=== PATIENT | male | born 1935 | race Caucasian/White ===

== ENCOUNTER 2020-03-29 08:11 | Outpatient (REF) | payer MEDICARE, SELFPAY ==
[2020-03-29 09:44] LABS: Estimated Average Glucose 186 mg/dL; Hemoglobin A1c % 8.1 %
[2020-03-29 10:24] LABS: Glucose Fasting 196 mg/dL (60-99)
[2020-03-29 10:30] LABS: Thyroid Stimulating Hormone 0.27 mIU/mL (0.32-4.0)
== END 2020-03-29 08:12 | disposition home or self-care (01) ==
LOC: HO.LAB 08:11
PROVIDERS: PCP Internal Medicine; Visit Provider Internal Medicine
DX: E11.9 Type 2 diabetes mellitus without complications (principal); E03.9 Hypothyroidism, unspecified
CPT/HCPCS: 82947; 83036; 84443

== ENCOUNTER → 2020-04-05 12:47 | Outpatient (BNVA) | payer MEDICARE, SELFPAY | PROVIDERS: PCP Internal Medicine; Referring Provider Internal Medicine; Visit Provider Orthopaedic Surgery | DX: M75.32 Calcific tendinitis of left shoulder (principal); M25.552 Pain in left hip | CPT/HCPCS: 20610; 99213; J1100 ==

== ENCOUNTER 2020-05-23 11:27 | Outpatient (REF) | payer MEDICARE, SELFPAY | END 2020-05-23 11:28 | disposition home or self-care (01) | LOC: HO.HOSX 11:27 | PROVIDERS: Visit Provider Orthopaedic Surgery | DX: Z13.89 Encounter for screening for other disorder (principal) ==

== ENCOUNTER 2020-05-24 08:23 | Outpatient (REF) | payer MEDICARE, SELFPAY ==
--- NOTE | 2020-05-24 08:28 | XR_ITS ---
EXAMINATION: XR BILATERAL KNEES XR RIGHT KNEE CLINICAL INFORMATION: Pain. COMPARISON: 11/13/2014 TECHNIQUE: AP bilateral knees one view. Right knee 2 views. FINDINGS: Right Knee: Severe medial compartment osteoarthritis. This is characterized by joint space loss, marginal osteophytes. Mild lateral compartment and moderate patellofemoral compartment arthritis. Moderate effusion. No acute fracture or dislocation. Left Knee: On the single frontal projection, there is mild medial compartment arthritis. XR/XR knee RT 2V IMPRESSION: Tricompartment osteoarthritis right knee. Severe medial compartment arthritis. Moderate effusion. Mild left knee medial compartment osteoarthritis.
--- NOTE | 2020-05-24 08:28 | XR_ITS ---
EXAMINATION: XR BILATERAL KNEES XR RIGHT KNEE CLINICAL INFORMATION: Pain. COMPARISON: 11/13/2014 TECHNIQUE: AP bilateral knees one view. Right knee 2 views. FINDINGS: Right Knee: Severe medial compartment osteoarthritis. This is characterized by joint space loss, marginal osteophytes. Mild lateral compartment and moderate patellofemoral compartment arthritis. Moderate effusion. No acute fracture or dislocation. Left Knee: On the single frontal projection, there is mild medial compartment arthritis. XR/XR knee standing BI IMPRESSION: Tricompartment osteoarthritis right knee. Severe medial compartment arthritis. Moderate effusion. Mild left knee medial compartment osteoarthritis.
== END 2020-05-24 08:24 | disposition home or self-care (01) ==
LOC: HO.HOSX 08:23
PROVIDERS: PCP Internal Medicine; Referring Provider Internal Medicine; Visit Provider Orthopaedic Surgery
DX: M17.11 Unilateral primary osteoarthritis, right knee (principal); M25.569 Pain in unspecified knee
CPT/HCPCS: 20610; 73560; 73565; 99212; J1100

== ENCOUNTER 2020-07-05 07:58 | Outpatient (REF) | payer MEDICARE, SELFPAY ==
[2020-07-05 09:24] LABS: Thyroid Stimulating Hormone 0.15 uIU/mL (0.32-4.0)
== END 2020-07-05 07:59 | disposition home or self-care (01) ==
LOC: HO.LAB 07:58
PROVIDERS: PCP Internal Medicine; Visit Provider Internal Medicine
DX: E03.9 Hypothyroidism, unspecified (principal)
CPT/HCPCS: 36415; 84443

== ENCOUNTER → 2020-08-16 08:53 | Outpatient (BNVA) | payer MEDICARE, SELFPAY | PROVIDERS: Visit Provider Orthopaedic Surgery | DX: M17.11 Unilateral primary osteoarthritis, right knee (principal) | CPT/HCPCS: 99212 ==

== ENCOUNTER → 2020-10-18 08:39 | Outpatient (BNVA) | payer MEDICARE, SELFPAY | PROVIDERS: Visit Provider Orthopaedic Surgery | DX: M17.11 Unilateral primary osteoarthritis, right knee (principal) | CPT/HCPCS: 99212 ==

== ENCOUNTER 2020-10-25 10:38 | Outpatient (REF) | payer MEDICARE, SELFPAY ==
[2020-10-25 11:16] LABS: Estimated Average Glucose 189 mg/dL; Hemoglobin A1c % 8.2 %
[2020-10-25 12:11] LABS: Alanine Aminotransferase 25 U/L (0-40); Albumin Level 4.3 g/dL (3.5-5.0); Alkaline Phosphatase 71 U/L (39-117); Aspartate Amino Transferase 20 U/L (5-37); Bilirubin Direct 0.3 mg/dL (0.0-0.5); Bilirubin Total 0.6 mg/dL (0.0-1.0); Cholesterol 130 mg/dL; Glucose Fasting 187 mg/dL (60-99); HDL Cholesterol 38 mg/dL; LDL Cholesterol Calculated 66 mg/dl; Total Protein 6.9 g/dL (6.5-8.0); Triglycerides 131 mg/dL
[2020-10-25 13:36] LABS: Reflex LDLD? No
== END 2020-10-25 10:39 | disposition home or self-care (01) ==
LOC: HO.LNP 10:38
PROVIDERS: Visit Provider Internal Medicine
DX: E11.9 Type 2 diabetes mellitus without complications (principal); E78.00 Pure hypercholesterolemia, unspecified
CPT/HCPCS: 80061; 80076; 82947; 83036

== ENCOUNTER 2021-05-16 10:44 | Outpatient (REF) | payer MEDICARE, SELFPAY ==
[2021-05-16 10:49] LABS: MANUAL DIFF FLAG NO
[2021-05-16 11:12] LABS: Basophils Percent Auto 0.3 % (0-2); Eosinophils Absolute Auto 0.2 X10*3/uL (0.0-0.4); Eosinophils Percent Auto 2.4 % (0-4); Hematocrit 41.4 % (42.0-52.0); Hemoglobin 13.4 g/dl (14.0-18.0); Imm Gran Abs Auto 0.01 X10*3/uL (0.00-0.03); Imm Gran Pct Auto 0.1 % (0.0-0.4); Lymphocytes Absolute Auto 3.7 X10*3/uL (1.2-4.9); Lymphocytes Percent Auto 40.4 % (20-40); Mean Corpuscular HGB Conc 32.4 g/dl (31.0-36.0); Mean Corpuscular Hemoglobin 31.8 pg (27.0-33.0); Mean Corpuscular Volume 98.3 fL (80.0-98.0); Monocytes Absolute Auto 0.8 X10*3/uL (0.1-1.2); Monocytes Percent Auto 8.5 % (2-11); Neutrophils Absolute Auto 4.4 x10*3/uL (2.0-8.3); Neutrophils Percent Auto 48.3 % (45-73); Platelet Count 193 X10*3/uL (160-400); Red Blood Count 4.21 X10*6/uL (4.60-5.80); Red Cell Distribution Width 13.2 % (11.0-16.0); White Blood Count 9.2 X10*3/uL (4.8-10.8)
[2021-05-16 11:20] LABS: Appearance Urine CLEAR; Color Urine STRAW; Glucose Urine UA NEG (NEG); Leukocyte Esterase Urine NEG (NEG); Nitrite Urine NEG (NEG); Specific Gravity - Urine 1.015 (1.005-1.025); Urine Blood NEG (NEG); Urine Ketones NEG (NEG); Urine Protein NEG (NEG-TRACE)
[2021-05-16 11:22] LABS: Estimated Average Glucose 146 mg/dL; Hemoglobin A1c % 6.7 %
[2021-05-16 11:40] LABS: Creatinine Urine 84.95 mg/dL; Microalbum/Creatinine Ratio Ur 129.4 ug/mg cr
[2021-05-16 12:00] LABS: Alanine Aminotransferase 28 U/L (0-40); Albumin Level 4.4 g/dL (3.5-5.0); Alkaline Phosphatase 70 U/L (39-117); Anion Gap 15 (12-20); Aspartate Amino Transferase 26 U/L (5-37); Bilirubin Total 0.7 mg/dL (0.0-1.0); Blood Urea Nitrogen 19 mg/dL (9-16); Calcium 10.1 mg/dL (8.4-10.2); Carbon Dioxide 25 mmol/L (22-29); Chloride 106 mmol/L (96-108); Cholesterol 126 mg/dL; Estimated Glomerular Filt Rate > 60; Glucose Fasting 144 mg/dL (60-99); HDL Cholesterol 38 mg/dL; LDL Cholesterol Calculated 60 mg/dl; Potassium 4.2 mmol/L (3.3-5.1); Sodium 142 mmol/L (135-145); Total Protein 7.2 g/dL (6.5-8.0); Triglycerides 140 mg/dL
[2021-05-16 12:22] LABS: PSA,Total (Free>4and<10) 0.49 ng/mL (0.00-4.00)
[2021-05-16 13:08] LABS: Reflex LDLD? No
[2021-05-16 13:29] LABS: Free T4 (Free Thyroxine) 1.64 ng/dL (0.71-1.85)
== END 2021-05-16 10:45 | disposition home or self-care (01) ==
LOC: HO.LNP 10:44
PROVIDERS: Visit Provider Internal Medicine
DX: E11.9 Type 2 diabetes mellitus without complications (principal); E78.00 Pure hypercholesterolemia, unspecified; E03.9 Hypothyroidism, unspecified; D72.820 Lymphocytosis (symptomatic); I10 Essential (primary) hypertension; R97.20 Elevated prostate specific antigen [PSA]; D69.6 Thrombocytopenia, unspecified
CPT/HCPCS: 80053; 80061; 81003; 82043; 83036; 84153; 84439; 84443; 85025

== ENCOUNTER → 2021-06-20 13:56 | Outpatient (BNVA) | payer MEDICARE, SELFPAY | PROVIDERS: Visit Provider Orthopaedic Surgery | DX: M70.42 Prepatellar bursitis, left knee (principal) | CPT/HCPCS: 99212 ==

== ENCOUNTER → 2021-08-08 12:30 | Outpatient (REF) | payer MEDICARE, SELFPAY ==
--- NOTE | 2021-08-08 12:33 | CA_ITS ---
Transthoracic Echocardiogram Patient (Last, First, Middle): Richard Chávez W Gender: Male Date of : 1935 Age: 85 Procedure Date: 08/08/2021 Procedure Type: Transthoracic Echocardiogram Location: OP Height: 177.8 cm Weight: 81.65 kg BSA: 2.00 m2 Heart Rate: bpm BP: 170 / 80 mmHg Reset Merchandiser: DEVORA Referring MD: Orestes Alex MD Symptoms: NEWLY RECOGNIZED HEART MURMUR Study Quality: Fair ECG Rhythm: Sinus Conclusions: - The left ventricular systolic function is normal. The calculated ejection fraction is 60% by biplane method. - There is severe aortic valve stenosis. - There is mild to moderate tricuspid valve regurgitation. - Moderate pulmonary hypertension is present. Findings Left Ventricle Normal left ventricular cavity size. There is mildly increased left ventricular wall thickness. The left ventricular systolic function is normal. The calculated ejection fraction is 60% by biplane method. There is no evidence of regional wall motion abnormalities. E/E prime ratio is between 8 and 15 consistent with indeterminate filling pressures. Evidence suggests grade I (mild) diastolic dysfunction. Right Ventricle Normal right ventricular cavity size and systolic function. Atria Both atria are normal in size. Aortic Valve There is moderate calcification of the aortic valve. There is severe aortic valve stenosis. The peak aortic velocity is 4.24 m/s with a calculated peak gradient of 72 mmHg. The mean gradient is 41 mmHg. The aortic valve area is 0.66 cm2. There is no aortic valve regurgitation. Dimensionless index 0.21. Mitral Valve The mitral valve appears normal. There is trace mitral valve regurgitation. There is no mitral valve stenosis. Pulmonic Valve The pulmonic valve was not well visualized. There is trace pulmonic valve regurgitation. Tricuspid Valve Normal tricuspid valve structure. There is mild to moderate tricuspid valve regurgitation. The right ventricular systolic pressure is 55 mmHg. Moderate pulmonary hypertension is present. Great Vessels The asc aorta and aortic arch are normal in size. Venous The inferior vena cava is normal in size and collapses greater than 50% with inspiration. Pericardium/Pleural There is no evidence of pericardial effusion. Prior Study Comparison Changes noted compared to prior study dated: 02/03/2015. Aortic stenosis now present. Measurements 2D Linear Measurements IVSd: 1.19 0.6-0.9/0.6-1.0 cm LVIDd: 4.04 3.9-5.3/4.2-5.9 cm LVIDd Index: 2.02 2.4-3.2/2.2-3.1 cm/m2 LVIDs: 2.95 2.0-3.6 cm LVPWd: 1.08 0.7-1.1 cm Ao Root: 3.40 2.1-3.5 cm LA Diam: 3.70 2.7-3.8/3.0-4.0 cm LAIDs Index: 1.85 1.5-2.3 cm/m2 LV Mass: 192.71 67-162/88-224 g LV Mass Index: 96.36 43-95/49-115 g/m2 LVOT Diam: 2.00 3.0+(-)1.3 cm 2D Systolic Function EF 4C: 59.50 >55% EF 2C: 59.70 >55% EF BiP: 59.50 >55% Mitral Valve MV Pk E: 0.77 MV PK A: 0.81 MV Decel Time: 388.00 E/A: 1.00 E'Lateral: 6.20 E'Medial: 5.55 E/E' Med: 13.90 E/E' Lat: 12.40 PHT: 114.00 MVA PHT: 1.93 Decel [place]: 1.99 Aortic Valve AoV Pk Gerry: 4.24 AoV Mn Gerry: 3.03 AoV VTI: 1.05 AoV Pk Grad: 72.00 Aov Mn Grad: 41.00 ADY Cont.VTI: 0.66 LVOT LVOT Pk Gerry: 0.91 LVOT Mn Gerry: 0.62 LVOT VTI: 0.22 LVOT Pk Grad: 3.00 LVOT Mn Grad: 2.00 LVOT Diam: 2.00 LVOT Area: 3.14 Diastolic Function MV Pk E: 0.77 MV Pk A: 0.81 E/A: 1.00 E'Medial: 5.55 E/E' Med: 13.90 E' Laterial: 6.20 E/E' Lat: 12.40 Right Ventricle TAPSE (mm): 22.00 TVS' Gerry: 9.90 Tricuspid Valve TR Pk Gerry: 3.60 TR Pk Grad: 52.00 RA Press: 3.00 RVSP: 55.00 Great Vessels Aorta Ao Root-2D: 3.40 2.0-3.7 cm Ao Asc: 3.40 2.1-3.4 cm Ao Arch: 3.20 Updated in Other Vendor System with Status of Final Prince Flores MD electronically signed on 08/08/2021 4:38:22 PM with status of Final
== END ==
LOC: HO.CARD 12:30
PROVIDERS: PCP Internal Medicine; Visit Provider Internal Medicine
DX: R01.1 Cardiac murmur, unspecified (principal)
CPT/HCPCS: 93306

== ENCOUNTER → 2021-08-15 12:44 | Outpatient (BNVA) | payer MEDICARE, SELFPAY | PROVIDERS: PCP Internal Medicine; Referring Provider Internal Medicine; Visit Provider Internal Medicine Cardiovascular Disease | DX: I35.0 Nonrheumatic aortic (valve) stenosis (principal); I10 Essential (primary) hypertension | CPT/HCPCS: 93005; 99202 ==

== ENCOUNTER → 2021-09-12 09:38 | Outpatient (REF) | payer MEDICARE, SELFPAY ==
--- NOTE | 2021-09-12 09:42 | CA_ITS ---
Acquisition Time: 2021-09-12 10:07:43 Total Exercise Time: 00:04:21 Test Indications: SEVERE AORTIC STENOSIS, SOB Medications: SEE CHART Protocol: RAJAT Max HR: 125 BPM 93% of Pred: 134 BPM Max BP: 160/070 mmHG Max Work Load: 5.7 METS Exercise stress test with exercise 4 min 21 sec of Rajat protocol ( at 4 min exercise, speed reduced to 2.0 MPH from 2.4 MPH), with moderate shortness of breath and request to slow then stop exercise, no chest discomfort or lightheadedness, without arrythmia, with peak BP 146/50 immediate after placed in recovery then BP up to 160/60 later in recovery, without EKG changes meeting criteria for ischemia, with downsloping ST lead aVL only. Breathing quickly normalized with rest. Test reviewed with Dr Kendall. Referred By: Home Kendall Overread By: OSCAR JORDAN
== END ==
LOC: HO.CARD 09:38
PROVIDERS: Visit Provider Internal Medicine Cardiovascular Disease
DX: I35.0 Nonrheumatic aortic (valve) stenosis (principal)
CPT/HCPCS: 93017

== ENCOUNTER 2021-09-20 11:09 | Outpatient (REF) | payer MEDICARE, SELFPAY ==
[2021-09-20 12:26] LABS: Hematocrit 37.8 % (42.0-52.0); Hemoglobin 12.7 g/dl (14.0-18.0); Mean Corpuscular HGB Conc 33.6 g/dl (31.0-36.0); Mean Corpuscular Hemoglobin 32.1 pg (27.0-33.0); Mean Corpuscular Volume 95.5 fL (80.0-98.0); Mean Platelet Volume 10.7 fL (9.4-12.4); Platelet Count 181 X10*3/uL (160-400); Red Blood Count 3.96 X10*6/uL (4.60-5.80); Red Cell Distribution Width 13.2 % (11.0-16.0); White Blood Count 8.6 X10*3/uL (4.8-10.8)
[2021-09-20 12:29] LABS: INTERNATIONAL NORM RATIO 1.1 (0.9-1.1); Prothrombin Time 12.3 SEC (9.9-13.0)
[2021-09-20 13:05] LABS: Anion Gap 16 (12-20); Blood Urea Nitrogen 17 mg/dL (9-16); Calcium 10.1 mg/dL (8.4-10.2); Carbon Dioxide 26 mmol/L (22-29); Chloride 99 mmol/L (96-108); Estimated Glomerular Filt Rate 51; Glucose Random 403 mg/dL (60-115); Potassium 4.5 mmol/L (3.3-5.1); Sodium 136 mmol/L (135-145)
== END 2021-09-20 11:10 | disposition home or self-care (01) ==
LOC: HO.LAB 11:09
PROVIDERS: PCP Internal Medicine; Referring Provider Internal Medicine; Visit Provider Internal Medicine Cardiovascular Disease
DX: I35.0 Nonrheumatic aortic (valve) stenosis (principal)
CPT/HCPCS: 36415; 80048; 85027; 85610; 99212

== ENCOUNTER → 2021-11-01 14:09 | Outpatient (BNVA) | payer MEDICARE, SELFPAY | PROVIDERS: PCP Internal Medicine; Referring Provider Internal Medicine; Visit Provider Nurse Practitioner Family | DX: I35.0 Nonrheumatic aortic (valve) stenosis (principal); I10 Essential (primary) hypertension; Z98.890 Other specified postprocedural states | CPT/HCPCS: 99212 ==

== ENCOUNTER 2021-11-14 10:50 | Outpatient (REF) | payer MEDICARE, SELFPAY ==
[2021-11-14 11:18] LABS: Estimated Average Glucose 177 mg/dL; Hemoglobin A1c % 7.8 %
[2021-11-14 11:20] LABS: Alanine Aminotransferase 24 U/L (0-40); Albumin Level 4.3 g/dL (3.5-5.0); Alkaline Phosphatase 80 U/L (39-117); Aspartate Amino Transferase 23 U/L (5-37); Bilirubin Direct 0.2 mg/dL (0.0-0.5); Bilirubin Total 0.5 mg/dL (0.0-1.0); Cholesterol 152 mg/dL; Glucose Fasting 179 mg/dL (60-99); HDL Cholesterol 42 mg/dL; LDL Cholesterol Calculated 87 mg/dl; Total Protein 6.9 g/dL (6.5-8.0); Triglycerides 118 mg/dL
[2021-11-14 11:25] LABS: Reflex LDLD? No
== END 2021-11-14 10:51 | disposition home or self-care (01) ==
LOC: HO.LNP 10:50
PROVIDERS: Visit Provider Internal Medicine
DX: E11.9 Type 2 diabetes mellitus without complications (principal); E78.00 Pure hypercholesterolemia, unspecified
CPT/HCPCS: 80061; 80076; 82947; 83036

== ENCOUNTER → 2022-03-02 09:29 | Outpatient (REF) | payer MEDICARE, SELFPAY ==
--- NOTE | 2022-03-02 09:32 | CA_ITS ---
Transthoracic Echocardiogram Amended Patient (Last, First, Middle): Richard Chávez W Gender: Male Date of : 1935 Age: 86 Procedure Date: 03/02/2022 Procedure Type: Transthoracic Echocardiogram Location: OP Height: 177.8 cm Weight: 72.12 kg BSA: 1.89 m2 Heart Rate: 69 bpm BP: 120 / 60 mmHg Gravity Prospector: BERTHA Referring MD: Home Kendall MD Symptoms: I35.0 - Nonrheumatic aortic (valve) stenosis Study Quality: Fair ECG Rhythm: Sinus Conclusions: - The left ventricular systolic function is normal. The visually estimated ejection fraction is between 55-60%. - There is mildly decreased right ventricular systolic function. - A bioprosthetic aortic valve is present. The prosthetic aortic valve appears to be functioning normally. Findings Left Ventricle Normal left ventricular cavity size. There is severely increased left ventricular wall thickness. The left ventricular systolic function is normal. The visually estimated ejection fraction is between 55-60%. There is no evidence of regional wall motion abnormalities. Diastolic function is normal for age. Right Ventricle Normal right ventricular cavity size. There is mildly decreased right ventricular systolic function. Atria Both atria are normal in size. Aortic Valve A bioprosthetic aortic valve is present. The prosthetic aortic valve appears to be functioning normally. There is no aortic valve regurgitation. Mitral Valve There is mild mitral annular calcification. There is trace mitral valve regurgitation. There is no mitral valve stenosis. Pulmonic Valve The pulmonic valve is likely normal. Tricuspid Valve There is mild tricuspid valve regurgitation. Borderline pulmonary artery systolic pressure. Great Vessels The asc aorta is normal in size. Venous The inferior vena cava is normal in size and collapses less than 50% with inspiration. Pericardium/Pleural There is no evidence of pericardial effusion. Prior Study Comparison Changes noted compared to prior study dated: 08/08/2021. s/p AVR. Measurements 2D Linear Measurements IVSd: 1.51 0.6-0.9/0.6-1.0 cm LVIDd: 3.53 3.9-5.3/4.2-5.9 cm LVIDd Index: 1.87 2.4-3.2/2.2-3.1 cm/m2 LVIDs: 2.04 2.0-3.6 cm LVPWd: 1.49 0.7-1.1 cm LA Diam: 4.50 2.7-3.8/3.0-4.0 cm LAIDs Index: 2.38 1.5-2.3 cm/m2 LV Mass: 243.84 67-162/88-224 g LV Mass Index: 129.01 43-95/49-115 g/m2 LVOT Diam: 2.20 3.0+(-)1.3 cm 2D Volumes LA Vol: 30.40 2D Systolic Function EF 4C: 52.20 >55% EF 2C: 53.40 >55% EF BiP: 52.60 >55% Mitral Valve MV Pk E: 0.96 MV PK A: 0.56 MV Decel Time: 158.00 E/A: 1.70 E'Lateral: 12.00 E'Medial: 10.20 E/E' Med: 9.40 E/E' Lat: 8.00 PHT: 46.00 MVA PHT: 4.78 Decel Floyd: 6.06 Aortic Valve AoV Pk Gerry: 1.47 AoV Mn Gerry: 1.00 AoV VTI: 0.28 AoV Pk Grad: 9.00 Aov Mn Grad: 5.00 ADY Cont.VTI: 2.19 LVOT LVOT Pk Gerry: 0.82 LVOT Mn Gerry: 0.56 LVOT VTI: 0.16 LVOT Pk Grad: 3.00 LVOT Mn Grad: 2.00 LVOT Diam: 2.20 LVOT Area: 3.80 Diastolic Function MV Pk E: 0.96 MV Pk A: 0.56 E/A: 1.70 E'Medial: 10.20 E/E' Med: 9.40 E' Laterial: 12.00 E/E' Lat: 8.00 Right Ventricle TAPSE (mm): 13.10 TVS' Gerry: 7.51 Tricuspid Valve TR Pk Gerry: 2.85 TR Pk Grad: 32.00 RA Press: 8.00 RVSP: 40.00 Great Vessels Aorta Sinus of Valsalva: 3.60 2.0-3.5 cm Ao Asc: 3.30 2.1-3.4 cm Pulmonary Valve PV Pk Gerry: 0.90 Peak PV Grad: 3.00 Updated in Other Vendor System with Status of Final Prince Flores MD electronically signed on 03/03/2022 10:27:22 AM with status of Final
== END ==
LOC: HO.CARD 09:29
PROVIDERS: Visit Provider Internal Medicine Cardiovascular Disease
DX: I35.0 Nonrheumatic aortic (valve) stenosis (principal); Z95.3 Presence of xenogenic heart valve
CPT/HCPCS: 93306

== ENCOUNTER → 2022-03-08 12:45 | Outpatient (BNVA) | payer MEDICARE, SELFPAY | PROVIDERS: PCP Internal Medicine; Referring Provider Internal Medicine; Visit Provider Internal Medicine Cardiovascular Disease | DX: I48.92 Unspecified atrial flutter (principal); Z95.2 Presence of prosthetic heart valve; Z79.01 Long term (current) use of anticoagulants | CPT/HCPCS: 99212 ==

== ENCOUNTER 2022-03-23 09:55 | Outpatient (RCR) | payer MEDICARE, SELFPAY ==
[2022-03-23 10:00] VITALS: BP 108/54; BP 134/60
--- NOTE | 2022-03-23 11:56 | MHC.CR.ITI ---
[address] [phone] F: [phone] Please see additional notes from [facility] Card[facility] Rehab Initial Assessment/ITP Cardiac Rehab Initial Assessment/ITP Start: 02/09/22 08:50 Freq: Status: Active Protocol: Activity Type Activity Date Activity User E-sign Co-sign Detail Recorded Client Recorded Date Recorded By Document 03/23/22 06:49 SONALI [id number] 03/23/22 07:01 SONALI 03/23/22 06:49 Cardiac Rehab ITP Initial [Excercise] -Enologist Required No -Preferred Language British -Number of sessions approved 36 -Diagnosis AVR (Repair) Z95.2 -Other Diagnosis HTN, HDL, DM II , HYPOTHYROID, BPH -Comments ORIENTED TO UNIT, PROCESS, EQUIPMENT SAFETY HAS HX : ARTHRITIS RIGHT KNEE HX KNEE EFFUSION NKDA [Functional Assessment] -6 Min Walk (distance in ft) 950 -Stress Test (Mode) walk -METS Achieved 2.38 -Resting HR 72 -Resting BP 108/54 -Resting SpO2 97 -Exercise HR 106 -Exercise BP 134/60 -Exercise SpO2 97 -RPE 10 -Dyspnea No -ECG Summary sr/st [Pre Rehab] -Pre Rehab Home Exercise No -Mode walking -Exercise Minutes/Day 15 -Exercise Days/Week 2 -Intensity moderate -Risk Stratification: Intermediate Functional Risk Participants capacity < 5-6 METs -Assistive Devices None [Exercise Plan] [Intervention] -Exercise Prescription NuStep, Recumbent Bike, Recumbent Elliptical, Rower,Treadmill ,UBE,Upright Bike,Weights -Duration Intensity 36 Sessions -Frequency 2-3x/week -Angina with Exercise Yes [Exercise Education] -Exercise Education Exercise orientation, Exercise safety ,Home exercise, RPE,Self pulse checking,Signs and symptoms, Warmup/cooldown -Date Completed 03/23/22 -Initials ja -Education Summary no questions/ concerns. [Exercise Goals] -Exercise Most Days of the Week Yes -Exercise 30-45 mins/day Yes -Target HR Range +20 - +30 beats above resting -Target RPE range 11-13 -Increase METS next 30 days 0.5-1.0 METS Every two weeks -METs goal by Discharge 4 METS [Nutrition] [Hyperlipidemia] -Hyperlipidemia Yes -Lipid Draw Date 11/14/21 -Total Cholesterol 152 -LDL 87 -HDL 42 -Tryglycerides 118 [Diabetes] -Diabetes Yes -Diabetes Type 2 -Are lab results available Yes -Fasting Glucose 179 -Date 11/14/21 -HbA1C 7.80 -Date 11/14/21 [Weight Management] -Height 5 ft 10 in -Weight 77.5 kg -Recommended Diet low salt -Comments GIVEN DASH DIET AND READING NUTRITIONAL LABELS PAMPHLETS [Drug/Alchohol Use] -Drug/Alcohol Use No [Nutritional Screen (Rate Your Plate)] -Score 50 -Interpretation of Score opportunities to improve nutrional status -Comments given dash diet and reading food label pamphlets . 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 states not currently depressed or stressed but is aware that tensions could build. has a good support system. [Psycho/Social Plan] [Intervention] -Referral(s) No consult needed [Psycho/Social Education] -Psycho/Social Education Advanced directives, Coping techniques, Depression and CAD,Positive support system, Relaxation Techniques, Reviewed PHQ9 Score w/pt, Sexuality and CAD,Signs and symptoms of CAD ,Stress management -Date Completed 03/23/22 -Initials ja -Education Summary states son ( Jose) is HCP. denies depression and has good support system agrees to inform us/pcp if stress/ depression becomes an issue [Psycho/Social Goals] -Goals Not Applicable [Other Core Comp] [Risk Factors] -Risk Factors Diabetes, Dyslipidemia, Family History of CAD, Hypertension, Physical Inactivity, Other (see comments) [Hypertension] -Hypertention Yes -Resting BP: 108/54 [Tobacco Use] -Patient Tobacco Use Status Former Tobacco user -Tobacco use type Pipe -Years smoked 10 -Smoking Quit Date quit over 40 years ago -Exposure to secondhand smoke No [Heart Failure] -Heart Failure No -EF% 60% -Dyspnea at Rest No -Dyspnea with Exercise No -Last Hospitalization 01/30 [Other Core Comp Plan] [Intervention] -Referral(s) HF Diet Consult ,HF Support Group, Hypertension Consult, Physical Therapy for Fall Risk, Recognizing Stressors,Self Monitoring BP, Stress Management [Other Core Comp Education] -Other Core Comp Education HF Disease progression, Medication compliance,Risk factor modifications, RPD Scale/SOB management, Understanding hypertension -Date Completed 03/23/22 -Initials ja -Education Summary has good understanding of RPD scale, and monitoring of bp states good understanding of medications, monitoring and side effects. states maintains medication regimen [Other Core Comp Goals] -Goals Manage risk factors, Medication compliance, Resting BP < 130/80 [Medication Plan] [Intervention] -Medications AMLODIPINE 2.5 MG DAILY ATORVASTATIN 80 MG DAILY CALCIUM W/VIT D 600 MG-200 MG DAILY COENZYME Q 10 300 MG DAILY ELEQUIS FISH OIL DAILY LEVOTHYROXINE 150 MCH DAILY METFORMIN 1000 BID MIRIAM MOVE FREE CAPS DAILY TAMSULOSIN 0.4 MG DAILY VIT C DAILY -Compliance Patient reports compliance w/ prescribed meds [Medication Education] -Education Importance of medication compliance, Medication purpose, Medication schedule, Medication side effects -Date Completed 03/23/22 -Initials ja -Education Summary states good understanding of medications, monitoring and side effects. states maintains medication regimen [Medication Goals] -Goals Adherence to medication compliance [Treatment Times] -Rehab Services with ECG Monitor -Time 1000 -End Time 1145 -Visit Duration 105
[2022-04-18 10:23] VITALS: BP 132/64; BMI 23.9
--- NOTE | 2022-04-18 11:05 | MHC.CR.ITR ---
[address] [phone] F: [phone] Please see additional notes from [facility] Cardiac Rehab Reassessment/ITP Cardiac Rehab Reassessment/ITP Start: 02/09/22 08:50 Freq: Status: Active Protocol: Activity Type Activity Date Activity User E-sign Co-sign Detail Recorded Client Recorded Date Recorded By Document 04/18/22 10:23 SONALI Desktop 04/18/22 11:03 SONALI 04/18/22 10:23 Cardiac Rehab Reassessment/ITP [Exercise] -Dollyman Required No -Preferred Language Malay -Progress Note Type 30-Day Note -Total Sessions Attended 10 -Comments ORIENTED TO UNIT, PROCESS, EQUIPMENT SAFETY HAS HX : ARTHRITIS RIGHT KNEE HX KNEE EFFUSION NKDA 04/18/22 increasing intensity and duration of workout with supervision and guidance. [Functional Assessment] -ECG Summary A Fib -Home-Based Rehab Pt approved for home-based exercise -Comments walks for approx 15 mins 2x weekly -Fall Risk No [Exercise Plan] [Intervention] -Exercise Prescription NuStep, Recumbent Bike, Recumbent Elliptical, Rower,Treadmill ,UBE,Upright Bike,Weights -Duration Intensity 36 Sessions -Exercise Minutes/Day 30 -Exercise Days/Week 5 -Angina with Exercise Yes -Peak METs 3 [Home Exercise] -Mode walking -Frequency 2 x weekly -Intensity moderate -Comments walks on non rehab weekdays [Exercise Education] -Exercise Education Exercise orientation, Exercise safety ,Home exercise, RPE,Self pulse checking,Signs and symptoms, Warmup/cooldown -Date Completed 03/23/22 -Initials ja -Education Summary no questions/ concerns. [Exercise Goals] -Exercise Most Days of the Week Yes -Exercise 30-45 mins/day Yes -Target HR Range +20 - +30 beats above resting -Target RPE range 11-13 -Increase METS next 30 days 0.5-1.0 METS Every two weeks -METs goal by Discharge 4 METS [Nutrition] [Hyperlipidemia] -Are lab results available Yes -Hyperlipidemia Yes -Medication Changes No -Comments 11/14/21 Cholesterol- 152 Triglycerides- 118 LDL- 87 HDL- 42 [Diabetes] -Diabetes Yes -Diabetes Type 2 -Fasting Glucose 179 -Date 11/14/21 -HbA1C 7.80 -Date 11/14/21 [Weight Management] -Weight 75.5 kg -BMI 23.9 -Comments GIVEN DASH DIET AND READING NUTRITIONAL LABELS PAMPHLETS [Drug/Alchohol Use] -Drug/Alcohol Use No [Nutrition Plan] [Intervention] -Attended Not Applicable [Nutrition Education] -Nutrition Education Diabetes and excercise, Hydration, Nutrition, Reading food labels,Signs and symptoms of Hypo/Hyper- glycemia -Date Completed 03/23/22 -Initials JA -Education Summary at intake and ongoing. discussed role of nutrition and hydration in exercise/ rehab in general . denies having experienced s/s of hypo/ hyperglycemia given reading food labels and dash diet pamphlet [Nutrition Goals] -Goals BMI < 25, Fasting BG 80- 120 mg/dL,HDL > 40,LDL < 70, Total CHOL < 200 [Psycho/Social] -Stage of Change Maintenance -Occupation Retired -PHQ9 Score 1 -Interpretation of Score low risk for depression -Patient Self-Reports Depression No [Psycho/Social Plan] [Intervention] -Attended No consult needed [Psycho/Social Education] -Psycho/Social Education Advanced directives, Coping techniques, Depression and CAD,Positive support system, Relaxation Techniques, Reviewed PHQ9 Score w/pt, Sexuality and CAD,Signs and symptoms of CAD ,Stress management -Date Completed 03/23/22 -Initials ja -Education Summary states son ( Jose) is HCP. denies depression and has good support system agrees to inform us/pcp if stress/ depression becomes an issue [Psycho/Social Goals] -Goals Not Applicable [Other Core Comp] [Hypertension] -Hypertention Yes -Resting BP: 132/64 -Medication Changes No [Tobacco Use] -Change in Use No [Heart Failure] -Heart Failure No -Dyspnea at Rest No -Dyspnea with Exercise No [Other Core Comp Plan] [Intervention] -Attended HF Diet Consult ,HF Support Group, Hypertension Consult, Physical Therapy for Fall Risk, Recognizing Stressors,Self Monitoring BP, Stress Management [Other Core Comp Education] -Other Core Comp Education HF Disease progression, Medication compliance,Risk factor modifications, RPD Scale/SOB management, Understanding hypertension -Date Completed 03/23/22 -Initials ja -Education Summary has good understanding of RPD scale, and monitoring of bp states good understanding of medications, monitoring and side effects. states maintains medication regimen [Other Core Comp Goals] -Goals Manage risk factors, Medication compliance, Resting BP < 130/80 [Medication Plan] [Intervention] -Medications AMLODIPINE 2.5 MG DAILY ATORVASTATIN 80 MG DAILY CALCIUM W/VIT D 600 MG-200 MG DAILY COENZYME Q 10 300 MG DAILY ELEQUIS FISH OIL DAILY LEVOTHYROXINE 150 MCH DAILY METFORMIN 1000 BID MIRIAM MOVE FREE CAPS DAILY TAMSULOSIN 0.4 MG DAILY VIT C DAILY -Compliance Patient reports compliance w/ prescribed meds [Medication Education] -Education Importance of medication compliance, Medication purpose, Medication schedule, Medication side effects -Date Completed 03/23/22 -Initials ja -Education Summary states good understanding of medications, monitoring and side effects. states maintains medication regimen [Medication Goals] -Goals Adherence to medication compliance
[2022-05-16 08:08] VITALS: BP 142/68; BMI 24.3
--- NOTE | 2022-05-16 08:14 | MHC.CR.ITR ---
[address] [phone] F: [phone] Please see additional notes from [facility] Cardiac Rehab Reassessment/ITP Cardiac Rehab Reassessment/ITP Start: 02/09/22 08:50 Freq: Status: Active Protocol: Activity Type Activity Date Activity User E-sign Co-sign Detail Recorded Client Recorded Date Recorded By Document 05/16/22 08:08 SONALI [id number] 05/16/22 08:14 SONALI 05/16/22 08:08 Cardiac Rehab Reassessment/ITP [Exercise] -[facility] Required No -Preferred Language Sinhala -Progress Note Type 60-Day Note -Total Sessions Attended 18 -Comments ORIENTED TO UNIT, PROCESS, EQUIPMENT SAFETY HAS HX : ARTHRITIS RIGHT KNEE HX KNEE EFFUSION NKDA continues increasing intensity and duration of workout with supervision and guidance. [Functional Assessment] -ECG Summary A Fib -Home-Based Rehab Pt approved for home-based exercise -Comments walks for approx 15 mins 2x weekly -Fall Risk No [Exercise Plan] [Intervention] -Exercise Prescription NuStep, Recumbent Bike, Recumbent Elliptical, Rower,Treadmill ,UBE,Upright Bike,Weights -Duration Intensity 36 Sessions -Exercise Minutes/Day 30 -Exercise Days/Week 5 -Angina with Exercise Yes -Peak METs 3 [Home Exercise] -Mode walking -Frequency 2 x weekly -Intensity moderate -Comments walks on non rehab weekdays [Exercise Education] -Exercise Education Exercise orientation, Exercise safety ,Home exercise, RPE,Self pulse checking,Signs and symptoms, Warmup/cooldown -Date Completed 03/23/22 -Initials ja -Education Summary no questions/ concerns. [Exercise Goals] -Exercise Most Days of the Week Yes -Exercise 30-45 mins/day Yes -Target HR Range +20 - +30 beats above resting -Target RPE range 11-13 -Increase METS next 30 days 0.5-1.0 METS Every two weeks -METs goal by Discharge 4 METS [Nutrition] [Hyperlipidemia] -Are lab results available Yes -Hyperlipidemia Yes -Medication Changes No -Comments 11/14/21 Cholesterol- 152 Triglycerides- 118 LDL- 87 HDL- 42 [Diabetes] -Diabetes Yes -Diabetes Type 2 -Fasting Glucose 179 -Date 11/14/21 -HbA1C 7.80 -Date 11/14/21 [Weight Management] -Weight 67.8 kg -BMI 24.29 -Comments GIVEN DASH DIET AND READING NUTRITIONAL LABELS PAMPHLETS [Drug/Alchohol Use] -Drug/Alcohol Use No [Nutrition Plan] [Intervention] -Attended Not Applicable [Nutrition Education] -Nutrition Education Diabetes and excercise, Hydration, Nutrition, Reading food labels,Signs and symptoms of Hypo/Hyper- glycemia -Date Completed 03/23/22 -Initials JA -Education Summary at intake and ongoing. discussed role of nutrition and hydration in exercise/ rehab in general . denies having experienced s/s of hypo/ hyperglycemia given reading food labels and dash diet pamphlet [Nutrition Goals] -Goals BMI < 25, Fasting BG 80- 120 mg/dL,HDL > 40,LDL < 70, Total CHOL < 200 -Weight goal happy at current weight [Psycho/Social] -Stage of Change Maintenance -Occupation Retired -PHQ9 Score 1 -Interpretation of Score low risk for depression -Patient Self-Reports Depression No [Psycho/Social Plan] [Intervention] -Attended No consult needed [Psycho/Social Education] -Psycho/Social Education Advanced directives, Coping techniques, Depression and CAD,Positive support system, Relaxation Techniques, Reviewed PHQ9 Score w/pt, Sexuality and CAD,Signs and symptoms of CAD ,Stress management -Date Completed 03/23/22 -Initials ja -Education Summary states son ( Jose) is HCP. denies depression and has good support system agrees to inform us/pcp if stress/ depression becomes an issue [Psycho/Social Goals] -Goals Not Applicable [Other Core Comp] [Hypertension] -Hypertention Yes -Resting BP: 142/68 -Medication Changes No [Tobacco Use] -Change in Use No [Heart Failure] -Heart Failure No -Dyspnea at Rest No -Dyspnea with Exercise No [Other Core Comp Plan] [Intervention] -Attended HF Diet Consult ,HF Support Group, Hypertension Consult, Physical Therapy for Fall Risk, Recognizing Stressors,Self Monitoring BP, Stress Management [Other Core Comp Education] -Other Core Comp Education HF Disease progression, Medication compliance,Risk factor modifications, RPD Scale/SOB management, Understanding hypertension -Date Completed 03/23/22 -Initials ja -Education Summary has good understanding of RPD scale, and monitoring of bp states good understanding of medications, monitoring and side effects. states maintains medication regimen [Other Core Comp Goals] -Goals Manage risk factors, Medication compliance, Resting BP < 130/80 [Medication Plan] [Intervention] -Medications AMLODIPINE 2.5 MG DAILY ATORVASTATIN 80 MG DAILY CALCIUM W/VIT D 600 MG-200 MG DAILY COENZYME Q 10 300 MG DAILY ELEQUIS FISH OIL DAILY LEVOTHYROXINE 150 MCH DAILY METFORMIN 1000 BID MIRIAM MOVE FREE CAPS DAILY TAMSULOSIN 0.4 MG DAILY VIT C DAILY -Compliance Patient reports compliance w/ prescribed meds [Medication Education] -Education Importance of medication compliance, Medication purpose, Medication schedule, Medication side effects -Date Completed 03/23/22 -Initials ja -Education Summary states good understanding of medications, monitoring and side effects. states maintains medication regimen [Medication Goals] -Goals Adherence to medication compliance
[2022-06-06 10:06] VITALS: BP 138/80; BMI 25.1
--- NOTE | 2022-06-06 10:12 | MHC.CR.ITR ---
[address] [phone] F: [phone] Please see additional notes from [facility] Reassessment/ITP Cardiac Rehab Reassessment/ITP Start: 02/09/22 08:50 Freq: Status: Active Protocol: Activity Type Activity Date Activity User E-sign Co-sign Detail Recorded Client Recorded Date Recorded By Document 06/06/22 10:06 SONALI [id number] 06/06/22 10:12 SONALI 06/06/22 10:06 Cardiac Rehab Reassessment/ITP [Exercise] -Land Appraiser Required No -Preferred Language Albanian -Progress Note Type 90-Day Note -Total Sessions Attended 25 -Comments ORIENTED TO UNIT, PROCESS, EQUIPMENT SAFETY HAS HX : ARTHRITIS RIGHT KNEE HX KNEE EFFUSION NKDA continues increasing intensity and duration of workout with supervision and guidance. 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 [Functional Assessment] -ECG Summary A Fib -Home-Based Rehab Pt approved for home-based exercise -Comments walks for approx 15 mins 2x weekly -Fall Risk No [Exercise Plan] [Intervention] -Exercise Prescription NuStep, Recumbent Bike, Recumbent Elliptical, Rower,Treadmill ,UBE,Upright Bike,Weights -Duration Intensity 36 Sessions -Exercise Minutes/Day 30 -Exercise Days/Week 5 -Angina with Exercise Yes -Peak METs 3 [Home Exercise] -Mode walking -Frequency 2 x weekly -Intensity moderate -Comments walks on non rehab weekdays [Exercise Education] -Exercise Education Exercise orientation, Exercise safety ,Home exercise, RPE,Self pulse checking,Signs and symptoms, Warmup/cooldown -Date Completed 03/23/22 -Initials ja -Education Summary no questions/ concerns. [Exercise Goals] -Exercise Most Days of the Week Yes -Exercise 30-45 mins/day Yes -Target HR Range +20 - +30 beats above resting -Target RPE range 11-13 -Increase METS next 30 days 0.5-1.0 METS Every two weeks -METs goal by Discharge 4 METS [Nutrition] [Hyperlipidemia] -Are lab results available Yes -Hyperlipidemia Yes -Medication Changes No -Comments 11/14/21 Cholesterol- 152 Triglycerides- 118 LDL- 87 HDL- 42 [Diabetes] -Diabetes Yes -Diabetes Type 2 -Fasting Glucose 179 -Date 11/14/21 -HbA1C 7.80 -Date 11/14/21 [Weight Management] -Weight 79.2 kg -BMI 25.05 -Comments GIVEN DASH DIET AND READING NUTRITIONAL LABELS PAMPHLETS [Drug/Alchohol Use] -Drug/Alcohol Use No [Nutrition Plan] [Intervention] -Attended Not Applicable [Nutrition Education] -Nutrition Education Diabetes and excercise, Hydration, Nutrition, Reading food labels,Signs and symptoms of Hypo/Hyper- glycemia -Date Completed 03/23/22 -Initials JA -Education Summary at intake and ongoing. discussed role of nutrition and hydration in exercise/ rehab in general . denies having experienced s/s of hypo/ hyperglycemia given reading food labels and dash diet pamphlet [Nutrition Goals] -Goals BMI < 25, Fasting BG 80- 120 mg/dL,HDL > 40,LDL < 70, Total CHOL < 200 -Weight goal happy at current weight [Psycho/Social] -Stage of Change Maintenance -Occupation Retired -PHQ9 Score 1 -Interpretation of Score low risk for depression -Patient Self-Reports Depression No [Psycho/Social Plan] [Intervention] -Attended No consult needed [Psycho/Social Education] -Psycho/Social Education Advanced directives, Coping techniques, Depression and CAD,Positive support system, Relaxation Techniques, Reviewed PHQ9 Score w/pt, Sexuality and CAD,Signs and symptoms of CAD ,Stress management -Date Completed 03/23/22 -Initials ja -Education Summary states son ( Jose) is HCP. denies depression and has good support system agrees to inform us/pcp if stress/ depression becomes an issue [Psycho/Social Goals] -Goals Not Applicable [Other Core Comp] [Hypertension] -Hypertention Yes -Resting BP: 138/80 -Medication Changes No [Tobacco Use] -Change in Use No [Heart Failure] -Heart Failure No -Dyspnea at Rest No -Dyspnea with Exercise No [Other Core Comp Plan] [Intervention] -Attended HF Diet Consult ,HF Support Group, Hypertension Consult, Physical Therapy for Fall Risk, Recognizing Stressors,Self Monitoring BP, Stress Management [Other Core Comp Education] -Other Core Comp Education HF Disease progression, Medication compliance,Risk factor modifications, RPD Scale/SOB management, Understanding hypertension -Date Completed 03/23/22 -Initials ja -Education Summary has good understanding of RPD scale, and monitoring of bp states good understanding of medications, monitoring and side effects. states maintains medication regimen [Other Core Comp Goals] -Goals Manage risk factors, Medication compliance, Resting BP < 130/80 [Medication Plan] [Intervention] -Medications AMLODIPINE 2.5 MG DAILY ATORVASTATIN 80 MG DAILY CALCIUM W/VIT D 600 MG-200 MG DAILY COENZYME Q 10 300 MG DAILY ELEQUIS FISH OIL DAILY LEVOTHYROXINE 150 MCH DAILY METFORMIN 1000 BID MIRIAM MOVE FREE CAPS DAILY TAMSULOSIN 0.4 MG DAILY VIT C DAILY -Compliance Patient reports compliance w/ prescribed meds [Medication Education] -Education Importance of medication compliance, Medication purpose, Medication schedule, Medication side effects -Date Completed 03/23/22 -Initials ja -Education Summary states good understanding of medications, monitoring and side effects. states maintains medication regimen [Medication Goals] -Goals Adherence to medication compliance
[2022-07-17 10:10] VITALS: BP 114/60; BMI 24.7
--- NOTE | 2022-07-17 10:18 | MHC.CR.ITR ---
[address] [phone] F: [phone] Please see additional notes from [facility] Re[facility] Reassessment/ITP Cardiac Rehab Reassessment/ITP Start: 02/09/22 08:50 Freq: Status: Active Protocol: Activity Type Activity Date Activity User E-sign Co-sign Detail Recorded Client Recorded Date Recorded By Document 07/17/22 10:10 SONALI [id number] 07/17/22 10:17 SONALI 07/17/22 10:10 Cardiac Rehab Reassessment/ITP [Exercise] -Winder Tender Required No -Preferred Language Tajik -Progress Note Type 120-Day Note -Total Sessions Attended 32 -Comments ORIENTED TO UNIT, PROCESS, EQUIPMENT SAFETY HAS HX : ARTHRITIS RIGHT KNEE HX KNEE EFFUSION NKDA continues increasing intensity and duration of workout with supervision and guidance. 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 [Functional Assessment] -ECG Summary A Fib -Home-Based Rehab Pt approved for home-based exercise -Comments walks for approx 15 mins 2x weekly -Fall Risk No [Exercise Plan] [Intervention] -Exercise Prescription NuStep, Recumbent Bike, Recumbent Elliptical, Rower,Treadmill ,UBE,Upright Bike,Weights -Duration Intensity 36 Sessions -Exercise Minutes/Day 30 -Exercise Days/Week 5 -Angina with Exercise Yes -Peak METs 3 [Home Exercise] -Mode walking -Frequency 2 x weekly -Intensity moderate -Comments walks on non rehab weekdays [Exercise Education] -Exercise Education Exercise orientation, Exercise safety ,Home exercise, RPE,Self pulse checking,Signs and symptoms, Warmup/cooldown -Date Completed 03/23/22 -Initials ja -Education Summary no questions/ concerns. [Exercise Goals] -Exercise Most Days of the Week Yes -Exercise 30-45 mins/day Yes -Target HR Range +20 - +30 beats above resting -Target RPE range 11-13 -Increase METS next 30 days 0.5-1.0 METS Every two weeks -METs goal by Discharge 4 METS [Nutrition] [Hyperlipidemia] -Are lab results available Yes -Hyperlipidemia Yes -Medication Changes No -Comments 11/14/21 Cholesterol- 152 Triglycerides- 118 LDL- 87 HDL- 42 [Diabetes] -Diabetes Yes -Diabetes Type 2 -Fasting Glucose 179 -Date 11/14/21 -HbA1C 7.80 -Date 11/14/21 [Weight Management] -Weight 78.2 kg -BMI 24.73 -Comments GIVEN DASH DIET AND READING NUTRITIONAL LABELS PAMPHLETS [Drug/Alchohol Use] -Drug/Alcohol Use No [Nutrition Plan] [Intervention] -Attended Not Applicable [Nutrition Education] -Nutrition Education Diabetes and excercise, Hydration, Nutrition, Reading food labels,Signs and symptoms of Hypo/Hyper- glycemia -Date Completed 03/23/22 -Initials JA -Education Summary at intake and ongoing. discussed role of nutrition and hydration in exercise/ rehab in general . denies having experienced s/s of hypo/ hyperglycemia given reading food labels and dash diet pamphlet [Nutrition Goals] -Goals BMI < 25, Fasting BG 80- 120 mg/dL,HDL > 40,LDL < 70, Total CHOL < 200 -Weight goal happy at current weight [Psycho/Social] -Stage of Change Maintenance -Occupation Retired -PHQ9 Score 1 -Interpretation of Score low risk for depression -Patient Self-Reports Depression No [Psycho/Social Plan] [Intervention] -Attended No consult needed [Psycho/Social Education] -Psycho/Social Education Advanced directives, Coping techniques, Depression and CAD,Positive support system, Relaxation Techniques, Reviewed PHQ9 Score w/pt, Sexuality and CAD,Signs and symptoms of CAD ,Stress management -Date Completed 03/23/22 -Initials ja -Education Summary states son ( Jose) is HCP. denies depression and has good support system agrees to inform us/pcp if stress/ depression becomes an issue [Psycho/Social Goals] -Goals Not Applicable [Other Core Comp] [Hypertension] -Hypertention Yes -Resting BP: 114/60 -Medication Changes No [Tobacco Use] -Change in Use No [Heart Failure] -Heart Failure No -Dyspnea at Rest No -Dyspnea with Exercise No [Other Core Comp Plan] [Intervention] -Attended HF Diet Consult ,HF Support Group, Hypertension Consult, Physical Therapy for Fall Risk, Recognizing Stressors,Self Monitoring BP, Stress Management [Other Core Comp Education] -Other Core Comp Education HF Disease progression, Medication compliance,Risk factor modifications, RPD Scale/SOB management, Understanding hypertension -Date Completed 03/23/22 -Initials ja -Education Summary has good understanding of RPD scale, and monitoring of bp states good understanding of medications, monitoring and side effects. states maintains medication regimen [Other Core Comp Goals] -Goals Manage risk factors, Medication compliance, Resting BP < 130/80 [Medication Plan] [Intervention] -Medications AMLODIPINE 2.5 MG DAILY ATORVASTATIN 80 MG DAILY CALCIUM W/VIT D 600 MG-200 MG DAILY COENZYME Q 10 300 MG DAILY ELEQUIS FISH OIL DAILY LEVOTHYROXINE 150 MCH DAILY METFORMIN 1000 BID MIRIAM MOVE FREE CAPS DAILY TAMSULOSIN 0.4 MG DAILY VIT C DAILY [ End ] -Compliance Patient reports compliance w/ prescribed meds [Medication Education] -Education Importance of medication compliance, Medication purpose, Medication schedule, Medication side effects -Date Completed 03/23/22 -Initials ja -Education Summary states good understanding of medications, monitoring and side effects. states maintains medication regimen [Medication Goals] -Goals Adherence to medication compliance
[2022-08-17 08:20] VITALS: BP 122/60; BP 134/60; BMI 24.7
--- NOTE | 2022-08-17 08:25 | MHC.CR.ITD ---
[address] [phone] F: [phone] Please see additional notes from [facility] Card[facility] Rehab Discharge/ITP Cardiac Rehab Discharge/ITP Start: 02/09/22 08:50 Freq: Status: Active Protocol: Activity Type Activity Date Activity User E-sign Co-sign Detail Recorded Client Recorded Date Recorded By Document 08/17/22 08:20 SONALI [id number] 08/17/22 08:25 SONALI 08/17/22 08:20 Cardiac Rehab Discharge/ITP [Exercise] -O And M Supervisor Required No -Preferred Language Mongolian -Total Sessions Attended 36 -Comments ORIENTED TO UNIT, PROCESS, EQUIPMENT SAFETY HAS HX : ARTHRITIS RIGHT KNEE HX KNEE EFFUSION NKDA continues increasing intensity and duration of workout with supervision and guidance. 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 [Functional Assessment] -6 Min Walk (distance in ft) 1,200 -Stress Test (Mode) walk -METS Achieved 2.41 -Resting HR 73 -Resting BP 122/60 -Resting SpO2 98 -Exercise HR 99 -Exercise BP 134/60 -Exercise SpO2 94 -RPE 10 -Dyspnea NI -ECG Summary A Fib -Fall Risk No [Exercise Plan] [Intervention] -Exercise Prescription NuStep, Recumbent Bike, Recumbent Elliptical, Rower,Treadmill ,UBE,Upright Bike,Weights -Duration Intensity 36 Sessions -Exercise Minutes/Day 30 -Exercise Days/Week 5 -Angina with Exercise Yes -Peak METs 3 [Home Exercise] -Mode walking -Frequency 2 x weekly -Intensity moderate -Comments walks on non rehab weekdays [Exercise Education] -Exercise Education Exercise orientation, Exercise safety ,Home exercise, RPE,Self pulse checking,Signs and symptoms, Warmup/cooldown -Date Completed 03/23/22 -Initials ja -Education Summary no questions/ concerns. [Exercise Goals] -Exercise Most Days of the Week Yes -Exercise 30-45 mins/day Yes -Target HR Range +20 - +30 beats above resting -Target RPE range 11-13 -Increase METS next 30 days 0.5-1.0 METS Every two weeks -METs goal by Discharge 4 METS [Nutrition] [Hyperlipidemia] -Are lab results available Yes -Hyperlipidemia Yes -Lipid Draw Date 11/14/21 -Total Cholesterol 152 -LDL 87 -HDL 42 -Tryglycerides 118 -Comments 11/14/21 Cholesterol- 152 Triglycerides- 118 LDL- 87 HDL- 42 [Diabetes] -Diabetes Yes -Diabetes Type 2 -Fasting Glucose 179 -Date 11/14/21 -HbA1C 7.80 -Date 11/14/21 [Weight Management] -Weight 78.2 kg -BMI 24.73 -Comments GIVEN DASH DIET AND READING NUTRITIONAL LABELS PAMPHLETS [Drug/Alchohol Use] -Drug/Alcohol Use No [Nutrition Plan] [Intervention] -Attended Not Applicable [Nutrition Education] -Nutrition Education Diabetes and excercise, Hydration, Nutrition, Reading food labels,Signs and symptoms of Hypo/Hyper- glycemia -Date Completed 03/23/22 -Initials JA -Education Summary at intake and ongoing. discussed role of nutrition and hydration in exercise/ rehab in general . denies having experienced s/s of hypo/ hyperglycemia given reading food labels and dash diet pamphlet [Nutrition Goals] -Goals BMI < 25, Fasting BG 80- 120 mg/dL,HDL > 40,LDL < 70, Total CHOL < 200 -Weight goal happy at current weight [Psycho/Social] -Stage of Change Maintenance -Occupation Retired -PHQ9 Score 1 -Interpretation of Score low risk for depression -Patient Self-Reports Depression No [Psycho/Social Plan] [Intervention] -Attended No consult needed [Psycho/Social Education] -Psycho/Social Education Advanced directives, Coping techniques, Depression and CAD,Positive support system, Relaxation Techniques, Reviewed PHQ9 Score w/pt, Sexuality and CAD,Signs and symptoms of CAD ,Stress management -Date Completed 03/23/22 -Initials ja -Education Summary states son ( Jose) is HCP. denies depression and has good support system agrees to inform us/pcp if stress/ depression becomes an issue [Psycho/Social Goals] -Goals Not Applicable [Other Core Comp] [Hypertension] -Hypertention Yes -Resting BP: 122/60 -Medication Changes No [Tobacco Use] -Change in Use No [Heart Failure] -Dyspnea at Rest No -Dyspnea with Exercise No [Other Core Comp Plan] [Intervention] -Attended HF Diet Consult ,HF Support Group, Hypertension Consult, Physical Therapy for Fall Risk, Recognizing Stressors,Self Monitoring BP, Stress Management [Other Core Comp Education] -Other Core Comp Education HF Disease progression, Medication compliance,Risk factor modifications, RPD Scale/SOB management, Understanding hypertension -Date Completed 03/23/22 -Initials ja -Education Summary has good understanding of RPD scale, and monitoring of bp states good understanding of medications, monitoring and side effects. states maintains medication regimen [Other Core Comp Goals] -Goals Manage risk factors, Medication compliance, Resting BP < 130/80 [Medication Plan] [Intervention] -Medications AMLODIPINE 2.5 MG DAILY ATORVASTATIN 80 MG DAILY CALCIUM W/VIT D 600 MG-200 MG DAILY COENZYME Q 10 300 MG DAILY ELEQUIS FISH OIL DAILY LEVOTHYROXINE 150 MCH DAILY METFORMIN 1000 BID MIRIAM MOVE FREE CAPS DAILY TAMSULOSIN 0.4 MG DAILY VIT C DAILY [ End ] -Compliance Patient reports compliance w/ prescribed meds [Medication Education] -Education Importance of medication compliance, Medication purpose, Medication schedule, Medication side effects -Date Completed 03/23/22 -Initials ja -Education Summary states good understanding of medications, monitoring and side effects. states maintains medication regimen [Medication Goals] -Goals Adherence to medication compliance
== END 2022-08-17 08:36 | disposition home or self-care (01) ==
LOC: HO.CR 09:55
PROVIDERS: PCP Internal Medicine; Visit Provider Nurse Practitioner Acute Care
DX: Z98.890 Other specified postprocedural states (principal)
CPT/HCPCS: 93798

== ENCOUNTER 2022-04-26 11:18 | Outpatient (REF) | payer MEDICARE, SELFPAY ==
[2022-03-23 10:00] VITALS: BP 108/54; BP 134/60
[2022-04-26 11:37] LABS: MANUAL DIFF FLAG NO
[2022-04-26 12:06] LABS: Basophils Percent Auto 0.5 % (0-2); Eosinophils Absolute Auto 0.2 X10*3/uL (0.0-0.4); Eosinophils Percent Auto 2.1 % (0-4); Hematocrit 33.7 % (42.0-52.0); Hemoglobin 10.6 g/dl (14.0-18.0); Imm Gran Abs Auto 0.04 X10*3/uL (0.00-0.03); Imm Gran Pct Auto 0.5 % (0.0-0.4); Lymphocytes Absolute Auto 2.6 X10*3/uL (1.2-4.9); Lymphocytes Percent Auto 29.3 % (20-40); Mean Corpuscular HGB Conc 31.5 g/dl (31.0-36.0); Mean Corpuscular Hemoglobin 31.2 pg (27.0-33.0); Mean Corpuscular Volume 99.1 fL (80.0-98.0); Mean Platelet Volume 10.7 fL (9.4-12.4); Monocytes Absolute Auto 0.6 X10*3/uL (0.1-1.2); Monocytes Percent Auto 7.4 % (2-11); Neutrophils Absolute Auto 5.3 x10*3/uL (2.0-8.3); Neutrophils Percent Auto 60.2 % (45-73); Platelet Count 183 X10*3/uL (160-400); Red Cell Distribution Width 14.5 % (11.0-16.0); White Blood Count 8.7 X10*3/uL (4.8-10.8)
== END 2022-04-26 11:19 | disposition home or self-care (01) ==
LOC: HO.LAB 11:18
PROVIDERS: PCP Internal Medicine; Visit Provider Internal Medicine
DX: K62.5 Hemorrhage of anus and rectum (principal)
CPT/HCPCS: 36415; 85025

== ENCOUNTER 2022-04-27 12:16 | Outpatient (REF) | payer MEDICARE, SELFPAY ==
[2022-03-23 10:00] VITALS: BP 108/54; BP 134/60
[2022-04-27 12:25] LABS: MANUAL DIFF FLAG NO
[2022-04-27 13:16] LABS: Basophils Absolute Auto 0.1 X10*3/uL (0.0-0.2); Basophils Percent Auto 0.5 % (0-2); Eosinophils Absolute Auto 0.2 X10*3/uL (0.0-0.4); Eosinophils Percent Auto 1.6 % (0-4); Hematocrit 33.9 % (42.0-52.0); Hemoglobin 10.7 g/dl (14.0-18.0); Imm Gran Abs Auto 0.03 X10*3/uL (0.00-0.03); Imm Gran Pct Auto 0.3 % (0.0-0.4); Lymphocytes Absolute Auto 3.2 X10*3/uL (1.2-4.9); Lymphocytes Percent Auto 33.4 % (20-40); Mean Corpuscular HGB Conc 31.6 g/dl (31.0-36.0); Mean Corpuscular Hemoglobin 31.1 pg (27.0-33.0); Mean Corpuscular Volume 98.5 fL (80.0-98.0); Mean Platelet Volume 10.8 fL (9.4-12.4); Monocytes Absolute Auto 0.8 X10*3/uL (0.1-1.2); Monocytes Percent Auto 8.8 % (2-11); Neutrophils Absolute Auto 5.2 x10*3/uL (2.0-8.3); Neutrophils Percent Auto 55.4 % (45-73); Platelet Count 186 X10*3/uL (160-400); Red Blood Count 3.44 X10*6/uL (4.60-5.80); Red Cell Distribution Width 14.5 % (11.0-16.0); White Blood Count 9.5 X10*3/uL (4.8-10.8)
[2022-04-27 14:02] LABS: Iron 64 mcg/dL (45-160); Percent Iron Saturation 20 % (15-50); Total Iron Binding Capacity 325 mcg/dL (228-428); Unsaturated Iron Binding 261 ug/dL
[2022-04-27 15:09] LABS: Ferritin 30 ng/mL (20-250)
[2022-04-27 16:36] LABS: Folate 12.1 ng/mL (> or = 4.0); Vitamin B12 344 pg/mL (200-900)
== END 2022-04-27 12:17 | disposition home or self-care (01) ==
LOC: HO.LAB 12:16
PROVIDERS: PCP Internal Medicine; Visit Provider Internal Medicine
DX: K62.5 Hemorrhage of anus and rectum (principal); D64.9 Anemia, unspecified
CPT/HCPCS: 36415; 82607; 82728; 82746; 83540; 85025

== ENCOUNTER 2022-05-10 11:15 | Outpatient (REF) | payer MEDICARE, SELFPAY ==
[2022-03-23 10:00] VITALS: BP 108/54; BP 134/60
[2022-05-10 11:58] LABS: MANUAL DIFF FLAG NO
[2022-05-10 12:36] LABS: Basophils Percent Auto 0.4 % (0-2); Eosinophils Absolute Auto 0.1 X10*3/uL (0.0-0.4); Eosinophils Percent Auto 1.8 % (0-4); Hematocrit 32.9 % (42.0-52.0); Hemoglobin 10.5 g/dl (14.0-18.0); Imm Gran Abs Auto 0.02 X10*3/uL (0.00-0.03); Imm Gran Pct Auto 0.3 % (0.0-0.4); Lymphocytes Absolute Auto 2.2 X10*3/uL (1.2-4.9); Lymphocytes Percent Auto 30.6 % (20-40); Mean Corpuscular HGB Conc 31.9 g/dl (31.0-36.0); Mean Corpuscular Hemoglobin 31.4 pg (27.0-33.0); Mean Corpuscular Volume 98.5 fL (80.0-98.0); Mean Platelet Volume 10.7 fL (9.4-12.4); Monocytes Absolute Auto 0.6 X10*3/uL (0.1-1.2); Monocytes Percent Auto 8.7 % (2-11); Neutrophils Absolute Auto 4.2 x10*3/uL (2.0-8.3); Neutrophils Percent Auto 58.2 % (45-73); Platelet Count 174 X10*3/uL (160-400); Red Blood Count 3.34 X10*6/uL (4.60-5.80); Red Cell Distribution Width 14.8 % (11.0-16.0); White Blood Count 7.2 X10*3/uL (4.8-10.8)
[2022-05-10 13:29] LABS: Ferritin 39 ng/mL (20-250)
== END 2022-05-10 11:16 | disposition home or self-care (01) ==
LOC: HO.LAB 11:15
PROVIDERS: PCP Internal Medicine; Visit Provider Internal Medicine
DX: D64.9 Anemia, unspecified (principal); K62.5 Hemorrhage of anus and rectum
CPT/HCPCS: 36415; 82728; 85025

== ENCOUNTER 2022-05-16 10:59 | Outpatient (REF) | payer MEDICARE, SELFPAY ==
[2022-03-23 10:00] VITALS: BP 108/54; BP 134/60
[2022-05-16 08:08] VITALS: BP 142/68; BMI 24.3
[2022-05-16 11:06] LABS: MANUAL DIFF FLAG NO
[2022-05-16 12:01] LABS: Basophils Percent Auto 0.4 % (0-2); Eosinophils Absolute Auto 0.2 X10*3/uL (0.0-0.4); Eosinophils Percent Auto 2.4 % (0-4); Imm Gran Abs Auto 0.02 X10*3/uL (0.00-0.03); Imm Gran Pct Auto 0.3 % (0.0-0.4); Mean Corpuscular HGB Conc 31.4 g/dl (31.0-36.0); Mean Corpuscular Hemoglobin 31.1 pg (27.0-33.0); Mean Corpuscular Volume 98.9 fL (80.0-98.0); Mean Platelet Volume 10.5 fL (9.4-12.4); Monocytes Absolute Auto 0.7 X10*3/uL (0.1-1.2); Monocytes Percent Auto 8.7 % (2-11); Neutrophils Absolute Auto 3.6 x10*3/uL (2.0-8.3); Neutrophils Percent Auto 48.2 % (45-73); Platelet Count 239 X10*3/uL (160-400); Red Blood Count 3.54 X10*6/uL (4.60-5.80); Red Cell Distribution Width 14.9 % (11.0-16.0); White Blood Count 7.4 X10*3/uL (4.8-10.8)
[2022-05-16 12:02] LABS: Appearance Urine Clear; Color Urine Yellow; Glucose Urine UA Negative (Negative); Leukocyte Esterase Urine Trace (Negative); Nitrite Urine Negative (Negative); PH 5.5 (5.0-9.0); Specific Gravity - Urine 1.015 (1.005-1.025); UMIC TRIGGER UA YES; Urine Blood Negative (Negative); Urine Ketones Negative (Negative); Urine Protein 100 (2+) mg/dL (Neg-Trace)
[2022-05-16 12:05] LABS: Bacteria Urine None Seen (None Seen); Hyaline Casts Urine 0-2 /LPF (0-2); RBC Urine 0-2 /HPF (0-2); Squamous Epithelial Cell Urine 0-2 /HPF (0-2); WBC Urine 0-5 /HPF (0-5)
[2022-05-16 12:18] LABS: Estimated Average Glucose 134 mg/dL; Hemoglobin A1c % 6.3 %
[2022-05-16 12:41] LABS: Creatinine Urine 120.71 mg/dL; Microalbum/Creatinine Ratio Ur 406.7 ug/mg cr
[2022-05-16 14:04] LABS: Alanine Aminotransferase 23 U/L (0-40); Albumin Level 4.3 g/dL (3.5-5.0); Alkaline Phosphatase 93 U/L (39-117); Anion Gap 12 (12-20); Aspartate Amino Transferase 28 U/L (5-37); Bilirubin Total 0.8 mg/dL (0.0-1.0); Blood Urea Nitrogen 20 mg/dL (9-16); Calcium 9.9 mg/dL (8.4-10.2); Carbon Dioxide 28 mmol/L (22-29); Chloride 108 mmol/L (96-108); Cholesterol 118 mg/dL; Estimated Glomerular Filt Rate > 60; Glucose Fasting 119 mg/dL (60-99); HDL Cholesterol 42 mg/dL; LDL Cholesterol Calculated 52 mg/dl; PSA,Total (Free>4and<10) 0.39 ng/mL (0.00-4.00); Potassium 4.4 mmol/L (3.3-5.1); Sodium 144 mmol/L (135-145); TSH reflex Free T4 3.48 uIU/mL (0.32-4.0); Triglycerides 124 mg/dL
== END 2022-05-16 11:00 | disposition home or self-care (01) ==
LOC: HO.LNP 10:59
PROVIDERS: Visit Provider Internal Medicine
DX: E11.9 Type 2 diabetes mellitus without complications (principal); E03.9 Hypothyroidism, unspecified; N40.0 Benign prostatic hyperplasia without lower urinary tract symptoms; I10 Essential (primary) hypertension; E78.00 Pure hypercholesterolemia, unspecified; D72.820 Lymphocytosis (symptomatic); R97.20 Elevated prostate specific antigen [PSA]; Z12.5 Encounter for screening for malignant neoplasm of prostate
CPT/HCPCS: 80053; 80061; 81001; 82043; 83036; 84153; 84443; 85025

== ENCOUNTER 2022-05-23 11:27 | Outpatient (REF) | payer MEDICARE, SELFPAY ==
[2022-03-23 10:00] VITALS: BP 108/54; BP 134/60
[2022-05-23 13:14] LABS: Iron 25 mcg/dL (45-160); Percent Iron Saturation 8 % (15-50); Total Iron Binding Capacity 307 mcg/dL (228-428); Unsaturated Iron Binding 282 ug/dL
[2022-05-23 14:11] LABS: Folate 12.4 ng/mL (> or = 4.0); Vitamin B12 507 pg/mL (200-900)
== END 2022-05-23 11:28 | disposition home or self-care (01) ==
LOC: HO.LNP 11:27
PROVIDERS: Visit Provider Internal Medicine
DX: D64.9 Anemia, unspecified (principal)
CPT/HCPCS: 82607; 82746; 83540

== ENCOUNTER 2022-06-06 14:33 | Outpatient (REF) | payer MEDICARE, SELFPAY ==
[2022-03-23 10:00] VITALS: BP 108/54; BP 134/60
[2022-06-06 10:06] VITALS: BP 138/80; BMI 25.1
[2022-06-06 14:51] LABS: MANUAL DIFF FLAG NO
[2022-06-06 14:59] LABS: Basophils Absolute Auto 0.1 X10*3/uL (0.0-0.2); Basophils Percent Auto 0.7 % (0-2); Eosinophils Absolute Auto 0.1 X10*3/uL (0.0-0.4); Eosinophils Percent Auto 1.1 % (0-4); Hemoglobin 10.5 g/dl (14.0-18.0); Imm Gran Abs Auto 0.03 X10*3/uL (0.00-0.03); Imm Gran Pct Auto 0.3 % (0.0-0.4); Lymphocytes Absolute Auto 2.5 X10*3/uL (1.2-4.9); Lymphocytes Percent Auto 27.6 % (20-40); Mean Corpuscular HGB Conc 30.9 g/dl (31.0-36.0); Mean Corpuscular Hemoglobin 30.2 pg (27.0-33.0); Mean Corpuscular Volume 97.7 fL (80.0-98.0); Mean Platelet Volume 10.1 fL (9.4-12.4); Monocytes Absolute Auto 0.7 X10*3/uL (0.1-1.2); Monocytes Percent Auto 7.3 % (2-11); Neutrophils Absolute Auto 5.6 x10*3/uL (2.0-8.3); Platelet Count 244 X10*3/uL (160-400); Red Blood Count 3.48 X10*6/uL (4.60-5.80); Red Cell Distribution Width 15.3 % (11.0-16.0); White Blood Count 8.9 X10*3/uL (4.8-10.8)
[2022-06-06 15:49] LABS: Ferritin 24 ng/mL (20-250); Iron 38 mcg/dL (45-160); Percent Iron Saturation 12 % (15-50); Total Iron Binding Capacity 329 mcg/dL (228-428); Unsaturated Iron Binding 291 ug/dL
[2022-06-06 16:04] LABS: Folate 10.8 ng/mL (> or = 4.0); Vitamin B12 360 pg/mL (200-900)
== END 2022-06-06 14:34 | disposition home or self-care (01) ==
LOC: HO.LAB 14:33
PROVIDERS: Internal Medicine; PCP Internal Medicine; Visit Provider Internal Medicine
DX: D64.9 Anemia, unspecified (principal)
CPT/HCPCS: 36415; 82607; 82728; 82746; 83540; 85025

== ENCOUNTER 2022-08-28 13:23 | Outpatient (REF) | payer MEDICARE, SELFPAY ==
[2022-08-28 15:17] LABS: Anion Gap 18 (12-20); Blood Urea Nitrogen 39 mg/dL (9-16); Calcium 10.6 mg/dL (8.4-10.2); Carbon Dioxide 27 mmol/L (22-29); Chloride 100 mmol/L (96-108); Estimated Glomerular Filt Rate 54; Glucose Random 50 mg/dL (60-115); Potassium 4.4 mmol/L (3.3-5.1); Sodium 141 mmol/L (135-145)
== END 2022-08-28 13:24 | disposition home or self-care (01) ==
LOC: HO.LAB 13:23
PROVIDERS: PCP Internal Medicine; Referring Provider Internal Medicine; Visit Provider Internal Medicine Cardiovascular Disease
DX: I48.92 Unspecified atrial flutter (principal); Z95.2 Presence of prosthetic heart valve
CPT/HCPCS: 36415; 80048; 93005; 99212

== ENCOUNTER 2022-10-10 10:59 | Outpatient (REF) | payer MEDICARE, SELFPAY ==
[2022-10-10 11:02] LABS: MANUAL DIFF FLAG NO
[2022-10-10 12:18] LABS: Basophils Percent Auto 0.4 % (0-2); Eosinophils Absolute Auto 0.2 X10*3/uL (0.0-0.4); Eosinophils Percent Auto 2.1 % (0-4); Hematocrit 38.8 % (42.0-52.0); Hemoglobin 12.6 g/dl (14.0-18.0); Imm Gran Abs Auto 0.03 X10*3/uL (0.00-0.03); Imm Gran Pct Auto 0.3 % (0.0-0.4); Lymphocytes Absolute Auto 4.4 X10*3/uL (1.2-4.9); Lymphocytes Percent Auto 45.8 % (20-40); Mean Corpuscular HGB Conc 32.5 g/dl (31.0-36.0); Mean Corpuscular Volume 95.6 fL (80.0-98.0); Mean Platelet Volume 11.4 fL (9.4-12.4); Monocytes Percent Auto 9.9 % (2-11); Neutrophils Percent Auto 41.5 % (45-73); Platelet Count 163 X10*3/uL (160-400); Red Blood Count 4.06 X10*6/uL (4.60-5.80); Red Cell Distribution Width 17.2 % (11.0-16.0); White Blood Count 9.6 X10*3/uL (4.8-10.8)
[2022-10-10 12:46] LABS: Blood Urea Nitrogen 44 mg/dL (9-16); Calcium 9.9 mg/dL (8.4-10.2); Estimated Glomerular Filt Rate 54; Iron 61 mcg/dL (45-160); Percent Iron Saturation 21 % (15-50); Total Iron Binding Capacity 285 mcg/dL (228-428); Unsaturated Iron Binding 224 ug/dL
== END 2022-10-10 11:00 | disposition home or self-care (01) ==
LOC: HO.LNP 10:59
PROVIDERS: Visit Provider Internal Medicine
DX: D50.9 Iron deficiency anemia, unspecified (principal); E11.9 Type 2 diabetes mellitus without complications
CPT/HCPCS: 82310; 82565; 83540; 84520; 85025

== ENCOUNTER 2022-11-24 11:58 | Inpatient (IN) | payer MEDICARE, SELFPAY ==
--- NOTE | ~2022-11-24 | XR_ITS ---
EXAMINATION: XR CHEST CLINICAL INFORMATION: Cough. COMPARISON: None available. TECHNIQUE: Frontal view of the chest was obtained. FINDINGS: The lungs are well-expanded with patchy opacity both lung bases. The heart size and pulmonary vascularity is normal. Is mild spondylosis lower dorsal spine. No aggressive lytic or sclerotic process seen. XR/XR chest 1V IMPRESSION: Patchy atelectatic changes or scarring both lung bases.
[2022-11-24 12:09] LABS: Glucose, Whole Blood > 600 mg/dL (60-115)
[2022-11-24 12:09] LABS: Glucose, Whole Blood > 600 mg/dL (60-115)
[2022-11-24 12:12] VITALS: BP 159/67; PULSE 63; RESP 18; TEMP 36.5; O2SAT 95; BMI 22.9
[2022-11-24 12:28] LABS: MANUAL DIFF FLAG NO
[2022-11-24 12:30] LABS: Appearance Urine Clear; Color Urine Yellow; Glucose Urine UA >=1000 mg/dL (Negative); Leukocyte Esterase Urine Negative (Negative); Nitrite Urine Negative (Negative); Specific Gravity - Urine 1.015 (1.005-1.025); UMIC TRIGGER UACC YES; Urine Blood Negative (Negative); Urine Ketones Negative (Negative); Urine Protein Negative (Neg-Trace)
[2022-11-24 12:31] LABS: Basophils Percent Auto 0.4 % (0-2); Eosinophils Absolute Auto 0.2 X10*3/uL (0.0-0.4); Eosinophils Percent Auto 1.6 % (0-4); Imm Gran Abs Auto 0.05 X10*3/uL (0.00-0.03); Imm Gran Pct Auto 0.5 % (0.0-0.4); Lymphocytes Absolute Auto 2.3 X10*3/uL (1.2-4.9); Lymphocytes Percent Auto 24.2 % (20-40); Mean Corpuscular HGB Conc 34.2 g/dl (31.0-36.0); Mean Corpuscular Hemoglobin 32.7 pg (27.0-33.0); Mean Corpuscular Volume 95.5 fL (80.0-98.0); Mean Platelet Volume 11.2 fL (9.4-12.4); Monocytes Absolute Auto 0.6 X10*3/uL (0.1-1.2); Monocytes Percent Auto 6.2 % (2-11); Neutrophils Absolute Auto 6.4 x10*3/uL (2.0-8.3); Neutrophils Percent Auto 67.1 % (45-73); Platelet Count 152 X10*3/uL (160-400); Red Blood Count 3.98 X10*6/uL (4.60-5.80); Red Cell Distribution Width 14.4 % (11.0-16.0); White Blood Count 9.5 X10*3/uL (4.8-10.8)
[2022-11-24 12:33] LABS: Bacteria Urine None Seen (None Seen); Hyaline Casts Urine 0-2 /LPF (0-2); RBC Urine 0-2 /HPF (0-2); Squamous Epithelial Cell Urine 0-2 /HPF (0-2); WBC Urine 0-5 /HPF (0-5)
--- NOTE | 2022-11-24 12:51 | ED.GENADULT ---
HPI - General Adult General Chief complaint: Recheck/Abnormal Lab/Rx Stated complaint: HIGH BGL Time Seen by Provider: 11/24/22 12:48 Source: patient Limitations: no limitations History of Present Illness HPI narrative: This is 87 years old the male presented to the emergency department from Dr. ling because the elevated blood sugar. Patient as history of type 2 diabetes, denies any vomiting any fever Onset (ago): day(s) (1) Radiation: non-radiation Severity: moderate Relieving factors: none Exacerbating factors: none Associated symptoms: denies other symptoms Related Data Home Medications Medication Instructions Recorded Confirmed atorvastatin 80 mg tablet 80 mg PO DAILY 04/02/20 08/28/22 tamsulosin 0.4 mg capsule 0.4 mg PO DAILY 04/02/20 08/28/22 valsartan 320 1 tab PO DAILY 06/20/21 08/28/22 mg-hydrochlorothiazide 25 mg tablet metformin 500 mg tablet 1,000 mg PO BID 09/20/21 08/28/22 apixaban 5 mg tablet (Eliquis) 5 mg PO BID 03/08/22 08/28/22 blood sugar diagnostic (FreeStyle #10 ea 08/28/22 08/28/22 Lite Strips) diltiazem HCl 180 mg 180 mg PO QPM 08/28/22 08/28/22 capsule,extended release 24 hr, controlled furosemide 40 mg tablet 40 mg PO DAILY 08/28/22 08/28/22 glimepiride 1 mg tablet 1 mg PO DAILY 08/28/22 08/28/22 levothyroxine 125 mcg tablet 125 mcg PO DAILY 08/28/22 08/28/22 lisinopril 5 mg tablet 5 mg PO DAILY 08/28/22 08/28/22 metoprolol succinate 25 mg 25 mg PO DAILY 08/28/22 08/28/22 tablet,extended release 24 hr Allergies Allergy/AdvReac Type Severity Reaction Status Date / Time No Known Allergies Allergy Verified 08/28/22 13:29 [No Known Allergies*] Review of Systems Constitutional: Constitutional: Reports no additional constitutional complaints ENT: Reports system reviewed and no additional complaints, except as documented Respiratory: Respiratory: Reports no additional respiratory complaints Musculoskeletal: Musculoskeletal: Reports no additional musculoskeletal complaints PMFSH Past Medical History Medical History Aortic stenosis Arthritis of right knee Calcific tendinitis of left shoulder Diabetes mellitus (~2014) HTN (hypertension) Hyperlipidemia (~2012) Hypothyroidism (~2012) Knee effusion (~11/15/14) Orthostasis (~2014) Surgical History History of cardiac cath S/P TAVR (transcatheter aortic valve replacement) S/P wrist surgery Family History Family History Father No problems noted. Mother Cancer Social History Social History Alcohol intake: never Patient Tobacco Use Status: Former Tobacco user Quit Date: quit over 40 years ago Tobacco use type: Pipe Years Smoked: 10 Advance Directives: Yes Advance Directives Information Provided: No Advance Directives on File: No Current occupational status: retired Current occupation: Right Handed Physical Exam ED Vital Signs: Vital Signs - 24 hr 11/24/22 12:12 11/24/22 14:20 Temperature 97.7 F 97.7 F Pulse Rate 63 65 Respiratory Rate 18 14 Blood Pressure 159/67 H 138/76 Pulse Oximetry 95 97 Oxygen Delivery Method Room Air Room Air BMI result Body Mass Index 22.9 Const General: cooperative Nutritional Appearance: average body habitus Orientation/consciousness: patient oriented x3 Limitations: no limitations HENMT Head: Yes normal to inspection Ears: hearing grossly normal bilaterally General nose exam: Normal external nose present Face and sinus: Yes normal facial exam Mouth: Normal oral and palatal mucosa present Throat: Yes posterior oropharynx normal Neck Neck: Yes normal visual inspection Resp Effort & Inspection: normal respiratory effort Auscultation: clear to auscultation bilaterally Cardio Jugular venous distension: no JVD Palpation: normal PMI Rate: regular rate GI Inspection: Yes normal to inspection General: Yes no CVA tenderness Back/Spine/Pelvis Back: no CVA tenderness Skin General skin exam: no rashes or lesions noted Rashes: no rashes Wounds: no wounds Neuro General: patient oriented x3 Cranial nerves: Yes CN's II-XII intact bilaterally Gait exam (Neuro): Normal gait present Motor exam (neuro): 5/5 motor strength present throughout Extrem General: Yes normal to inspection Right upper extremity: normal to inspection Right lower extremity: normal to inspection Course Reevaluation(s) Reevaluation #1: reexamined feels better blood sugar down from 538 Time: 14:08 Medications Administered Discontinued Medications Generic Name Dose Route Start Last Admin Trade Name Freq PRN Reason Stop Dose Admin Sodium Chloride 1,000 mls @ 999 mls/hr 11/24/22 13:00 11/24/22 14:16 Ns IVCONT 11/24/22 14:00 Infused .Q1H1M PRITI Infusion Sodium Chloride 1,000 mls @ 999 mls/hr 11/24/22 14:15 11/24/22 14:19 Ns IVCONT 11/24/22 15:15 999 mls/hr .Q1H1M PRITI Administration Insulin Human Lispro 10 unit 11/24/22 12:50 11/24/22 12:59 Insulin Lispro 100 Unit/Ml 3 Ml Vial SUBCUT 11/24/22 12:51 10 unit ONCE ONE Administration Insulin Human Lispro 5 unit 11/24/22 14:39 11/24/22 14:54 Insulin Lispro 100 Unit/Ml 3 Ml Vial SUBCUT 11/24/22 14:40 5 unit ONCE ONE Administration Medical Decision Making Medical Decision Making [facility] Narrative: Patient presented with elevated blood sugar will check labs I will administer insulin Differential Diagnosis Differential Diagnoses: The differential diagnosis associated with the presentation includes DKA, hyperglycemia, poor compliance with the medication Admission/Observation Consideration of admission/observation: Escalation of care including admission/observation considered Consult Healthcare Provider Management of the patient was discussed with: Hospitalist Lab Data [facility] Lab Attestation statement: I reviewed the patient's lab results. 11/24/22 12:23 11/24/22 12:23 Labs: Lab Results 11/24/22 11/24/22 11/24/22 Range/Units 12:04 12:06 12:23 WBC 9.5 (4.8-10.8) X10*3/uL RBC 3.98 L (4.60-5.80) X10*6/uL Hgb 13.0 L (14.0-18.0) g/dl Hct 38.0 L (42.0-52.0) % MCV 95.5 (80.0-98.0) fL MCH 32.7 (27.0-33.0) pg MCHC 34.2 (31.0-36.0) g/dl RDW 14.4 (11.0-16.0) % Plt Count 152 L (160-400) X10*3/uL MPV 11.2 (9.4-12.4) fL Immature Gran % (Auto) 0.5 H (0.0-0.4) % Neut % (Auto) 67.1 (45-73) % Lymph % (Auto) 24.2 (20-40) % Reagan % (Auto) 6.2 (2-11) % Eos % (Auto) 1.6 (0-4) % Baso % (Auto) 0.4 (0-2) % Lymph # (Auto) 2.3 (1.2-4.9) X10*3/uL Reagan # (Auto) 0.6 (0.1-1.2) X10*3/uL Eos # (Auto) 0.2 (0.0-0.4) X10*3/uL Baso # (Auto) 0.0 (0.0-0.2) X10*3/uL Abs Immat Gran (auto) 0.05 H (0.00-0.03) X10*3/uL Absolute Neuts (auto) 6.4 (2.0-8.3) x10*3/uL Absolute Nucleated RBC 0.000 (0.0-0.012) X10*3/uL Nucleated RBC % (auto) 0.0 (0.0-0.2) /100WBC Sodium (135-145) mmol/L Potassium (3.3-5.1) mmol/L Chloride (96-108) mmol/L Carbon Dioxide (22-29) mmol/L Anion Gap (12-20) BUN (9-16) mg/dL Creatinine (0.5-1.4) mg/dL Estim Creat Clear Calc Estimated GFR POC Glucose > 600 H* > 600 H* (60-115) mg/dL Random Glucose (60-115) mg/dL Calcium (8.4-10.2) mg/dL Total Bilirubin (0.0-1.0) mg/dL AST (5-37) U/L ALT (0-40) U/L Alkaline Phosphatase (39-117) U/L Total Protein (6.5-8.0) g/dL Albumin (3.5-5.0) g/dL Urine Color Urine Appearance Urine pH (5.0-9.0) Ur Specific [place] (1.005-1.025) Urine Protein (Neg-Trace) mg/dL Urine Glucose (UA) (Negative) mg/dL Urine Ketones (Negative) mg/dL Urine Blood (Negative) Urine Nitrite (Negative) Ur Leukocyte Esterase (Negative) Urine RBC (0-2) /HPF Urine WBC (0-5) /HPF Ur Squamous Epith Cells (0-2) /HPF Urine Bacteria (None Seen) Hyaline Casts (0-2) /LPF B-Hydroxybutyrate (0.02-0.027) mmol/L 11/24/22 11/24/22 11/24/22 Range/Units 12:23 12:23 13:54 WBC (4.8-10.8) X10*3/uL RBC (4.60-5.80) X10*6/uL Hgb (14.0-18.0) g/dl Hct (42.0-52.0) % MCV (80.0-98.0) fL MCH (27.0-33.0) pg MCHC (31.0-36.0) g/dl RDW (11.0-16.0) % Plt Count (160-400) X10*3/uL MPV (9.4-12.4) fL Immature Gran % (Auto) (0.0-0.4) % Neut % (Auto) (45-73) % Lymph % (Auto) (20-40) % Reagan % (Auto) (2-11) % Eos % (Auto) (0-4) % Baso % (Auto) (0-2) % Lymph # (Auto) (1.2-4.9) X10*3/uL Reagan # (Auto) (0.1-1.2) X10*3/uL Eos # (Auto) (0.0-0.4) X10*3/uL Baso # (Auto) (0.0-0.2) X10*3/uL Abs Immat Gran (auto) (0.00-0.03) X10*3/uL Absolute Neuts (auto) (2.0-8.3) x10*3/uL Absolute Nucleated RBC (0.0-0.012) X10*3/uL Nucleated RBC % (auto) (0.0-0.2) /100WBC Sodium 131 L (135-145) mmol/L Potassium 4.7 (3.3-5.1) mmol/L Chloride 92 L (96-108) mmol/L Carbon Dioxide 25 (22-29) mmol/L Anion Gap 19 (12-20) BUN 32 H (9-16) mg/dL Creatinine 1.84 H (0.5-1.4) mg/dL Estim Creat Clear Calc 28.1 Estimated GFR 35 POC Glucose 538 H* (60-115) mg/dL Random Glucose 741 H* (60-115) mg/dL Calcium 10.6 H D (8.4-10.2) mg/dL Total Bilirubin 1.3 H (0.0-1.0) mg/dL AST 19 (5-37) U/L ALT 23 (0-40) U/L Alkaline Phosphatase 130 H (39-117) U/L Total Protein 7.7 (6.5-8.0) g/dL Albumin 4.4 (3.5-5.0) g/dL Urine Color Yellow Urine Appearance Clear Urine pH 5.0 (5.0-9.0) Ur Specific [place] 1.015 (1.005-1.025) Urine Protein Negative (Neg-Trace) mg/dL Urine Glucose (UA) >=1000 H (Negative) mg/dL Urine Ketones Negative (Negative) mg/dL Urine Blood Negative (Negative) Urine Nitrite Negative (Negative) Ur Leukocyte Esterase Negative (Negative) Urine RBC 0-2 (0-2) /HPF Urine WBC 0-5 (0-5) /HPF Ur Squamous Epith Cells 0-2 (0-2) /HPF Urine Bacteria None Seen (None Seen) Hyaline Casts 0-2 (0-2) /LPF B-Hydroxybutyrate 0.56 H (0.02-0.027) mmol/L External Record Review External record reviewed: Office record I reviwed record of Dr Hawkins office Critical Care Time Critical Care Time Critical Care Time: Yes Total Critical Care Time: 45 Attestation: insulin fluids multiple blood sugar,discussion with hospitalist Discharge Plan Discharge Clinical Impression: Acute hyperglycemia Patient Disposition: Admitted As Inpatient
[2022-11-24] MEDS: Insulin Lispro 100 UNIT/ML 3 ML VIAL 10 UNIT SUBCUT (12:59)
[2022-11-24] MEDS: 0.9 % Sodium Chloride 1,000 ML 999 ML IVCONT ×2 (12:59→14:19)
[2022-11-24 13:06] LABS: Alanine Aminotransferase 23 U/L (0-40); Albumin Level 4.4 g/dL (3.5-5.0); Alkaline Phosphatase 130 U/L (39-117); Anion Gap 19 (12-20); Aspartate Amino Transferase 19 U/L (5-37); Bilirubin Total 1.3 mg/dL (0.0-1.0); Blood Urea Nitrogen 32 mg/dL (9-16); Calcium 10.6 mg/dL (8.4-10.2); Carbon Dioxide 25 mmol/L (22-29); Chloride 92 mmol/L (96-108); Creatinine Clr Calc Pharmacy 28.1; Estimated Glomerular Filt Rate 35; Glucose Random 741 mg/dL (60-115); Potassium 4.7 mmol/L (3.3-5.1); Sodium 131 mmol/L (135-145); Total Protein 7.7 g/dL (6.5-8.0)
[2022-11-24 13:26] LABS: Beta-Hydroxybutyrate 0.56 mmol/L (0.02-0.027)
[2022-11-24 13:57] LABS: Glucose, Whole Blood 538 mg/dL (60-115)
[2022-11-24 14:20] VITALS: BP 138/76; PULSE 65; RESP 14; TEMP 36.5; O2SAT 97
--- NOTE | 2022-11-24 14:21 | PC.NURSE ---
continues to deny any pain, resting comfortably in bed. second liter infusing
[2022-11-24] MEDS: Insulin Lispro 100 UNIT/ML 3 ML VIAL SUBCUT ×4 (14:54→21:05)
[2022-11-24 15:35] LABS: Glucose, Whole Blood 382 mg/dL (60-115)
--- NOTE | 2022-11-24 15:38 | P.HPHOSP_ITS ---
History of Present Illness Date of Service: 11/24/22 Attending physician on admission: Tanya Johnson Chief Complaint: Diabetes with hyperglycemia, TAYLOR. 87-year-old male with past medical history of aortic stenosis status post TAVR, diabetes, hypertension, hyperlipidemia, hypothyroidism, orthostasis: Patient came to the hospital because found to have elevated fingersticks form at least 2-3 weeks duration. Patient checks his fingersticks every day -in 1st week of October his fingersticks are between 150-180 range, and subsequently he did not check his fingersticks until until this 1st week of November when he is fingersticks started to go up in 300-400 range, he said he was thinking does go to his primary doctor but never went there. As so he went to his primary doctor today and was sent to the emergency room because his fingersticks 500-600 range. He says that he did not change in his diet habits, and also he says that he was taking his diabetic medication regularly and is compliant to that. He denies any recent travel or any urinary or respiratory or abdominal symptoms(including nausea, vomiting, abdominal pain, fever or chills or cough or phlegm or any urinary complaint.) Denies any new complaint of chest pain or shortness of breath or fever or chills Denies any weakness or numbness. Lab imaging reviewed: CBC seems fine. Sodium 131 BUN 32 creatinine is 1.84 Fingersticks were 600-700 range initially. Calcium 10.6. Patient was given 2 L IV fluid in the emergency room and also 15 subcu of lispro-fingersticks are improving to 340s range. Review of Systems Review of Systems: As above. [facility] Medical History Aortic stenosis Arthritis of right knee Calcific tendinitis of left shoulder Diabetes mellitus (~2014) HTN (hypertension) Hyperlipidemia (~2012) Hypothyroidism (~2012) Knee effusion (~11/15/14) Orthostasis (~2014) Family History Father No problems noted. 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 Glucose (Glucose Gel 15 Gm Gel..Gram.) 15 gm PO Q15M PRN; Protocol PRN Reason: per Hypoglycemia Standing Ord. Insulin Human Lispro (Insulin Lispro 100 Unit/Ml 3 Ml Vial) 0 unit SUBCUT [facility]; Protocol Pharmacy Consult (Consult Rx Perform Med Rec) 1 each MISCELLANE ONCE PRN PRN Reason: Consult order Sodium Chloride (0.9 % Sodium Chloride Flush 3 Ml Syringe) 3 ml IVFLUSH [facility] Home Medications Medication Instructions Recorded Confirmed Last Taken Type atorvastatin 80 mg tablet 80 mg PO BEDTIME 04/02/20 11/24/22 11/23/22 History tamsulosin 0.4 mg capsule 0.4 mg PO BEDTIME 04/02/20 11/24/22 11/23/22 History metformin 500 mg tablet 1,000 mg PO BID 09/20/21 11/24/22 11/24/22 09:00 History apixaban 5 mg tablet (Eliquis) 5 mg PO BID 03/08/22 11/24/22 11/24/22 09:00 History blood sugar diagnostic (FreeStyle #10 ea 08/28/22 08/28/22 Unknown History Lite Strips) diltiazem HCl 180 mg 180 mg PO BEDTIME 08/28/22 11/24/22 11/23/22 History capsule,extended release 24 hr, controlled furosemide 40 mg tablet 40 mg PO DAILY 08/28/22 11/24/22 11/24/22 09:00 History levothyroxine 125 mcg tablet 125 mcg PO DAILY@0600 08/28/22 11/24/22 11/24/22 History metoprolol succinate 25 mg 25 mg PO BEDTIME 08/28/22 11/24/22 11/23/22 History tablet,extended release 24 hr ascorbic acid (vitamin C) 1,000 mg 500 mg PO BEDTIME 11/24/22 11/24/22 11/23/22 History tablet (Vitamin C) cholecalciferol (vitamin D3) 50 50 mcg PO BEDTIME 11/24/22 11/24/22 11/23/22 History mcg (2,000 unit) tablet (Vitamin D3) coenzyme Q10 100 mg capsule 200 mg PO BEDTIME 11/24/22 11/24/22 11/23/22 History (CoQ-10) ferrous sulfate 325 mg (65 mg 325 mg PO DAILY 11/24/22 11/24/22 11/24/22 09:00 History iron) tablet (FeroSul) glucosam 750 mg-chondroi 100 2 tab PO BID 11/24/22 11/24/22 11/24/22 09:00 History mg-hyalur 1.65 mg-CF borate 108 mg tablet ([employer]) omega 2-bnx-aos-fish oil 1,000 mg 1 cap PO DAILY 11/24/22 11/24/22 11/24/22 09: 00 History (120 mg-180 mg) capsule (Fish Oil) Physical Exam Vital Signs and Narrative: Vital Signs: Last Vital Signs Temp 97.7 F 11/24/22 14:20 Pulse 65 11/24/22 14:20 Resp 14 11/24/22 14:20 BP 138/76 11/24/22 14:20 Pulse Ox 97 11/24/22 14:20 O2 Del Method Room Air 11/24/22 14:20 BMI result Body Mass Index 22.9 Appearance: Alert.? Oriented X3.? not in distress.? Eyes: Pupils equal, round and reactive to light.? Sclera nonicteric.? ENT: Pharynx normal.? Moist mucous membranes. cvs: rrr, [id number] . res: clear to auscultation ,no rhonchii or wheezing abd: no rebound or guarding ,nt, bs present. ext pulses present , no cyanosis . neuro: axo3 , nonfocal. Results Labs 11/24/22 12:23 11/24/22 12:23 Labs: Laboratory Results - last 24 hr 11/24/22 11/24/22 11/24/22 12:04 12:06 12:23 MCV 95.5 MCH 32.7 MCHC 34.2 RDW 14.4 Plt Count 152 L MPV 11.2 Immature Gran % (Auto) 0.5 H Neut % (Auto) 67.1 Lymph % (Auto) 24.2 Stewart % (Auto) 6.2 Eos % (Auto) 1.6 Baso % (Auto) 0.4 Lymph # (Auto) 2.3 Stewart # (Auto) 0.6 Eos # (Auto) 0.2 Baso # (Auto) 0.0 Abs Immat Gran (auto) 0.05 H Absolute Neuts (auto) 6.4 Absolute Nucleated RBC 0.000 Nucleated RBC % (auto) 0.0 Anion Gap Estim Creat Clear Calc Estimated GFR POC Glucose > 600 H* > 600 H* Random Glucose Calcium Total Bilirubin AST ALT Alkaline Phosphatase Total Protein Albumin Urine Color Urine Appearance Urine pH Ur Specific [place] Urine Protein Urine Glucose (UA) Urine Ketones Urine Blood Urine Nitrite Ur Leukocyte Esterase Urine RBC Urine WBC Ur Squamous Epith Cells Urine Bacteria Hyaline Casts B-Hydroxybutyrate 11/24/22 11/24/22 11/24/22 12:23 12:23 13:54 MCV MCH MCHC RDW Plt Count MPV Immature Gran % (Auto) Neut % (Auto) Lymph % (Auto) Stewart % (Auto) Eos % (Auto) Baso % (Auto) Lymph # (Auto) Stewart # (Auto) Eos # (Auto) Baso # (Auto) Abs Immat Gran (auto) Absolute Neuts (auto) Absolute Nucleated RBC Nucleated RBC % (auto) Anion Gap 19 Estim Creat Clear Calc 28.1 Estimated GFR 35 POC Glucose 538 H* Random Glucose 741 H* Calcium 10.6 H D Total Bilirubin 1.3 H AST 19 ALT 23 Alkaline Phosphatase 130 H Total Protein 7.7 Albumin 4.4 Urine Color Yellow Urine Appearance Clear Urine pH 5.0 Ur Specific [place] 1.015 Urine Protein Negative Urine Glucose (UA) >=1000 H Urine Ketones Negative Urine Blood Negative Urine Nitrite Negative Ur Leukocyte Esterase Negative Urine RBC 0-2 Urine WBC 0-5 Ur Squamous Epith Cells 0-2 Urine Bacteria None Seen Hyaline Casts 0-2 B-Hydroxybutyrate 0.56 H 11/24/22 15:31 MCV MCH MCHC RDW Plt Count MPV Immature Gran % (Auto) Neut % (Auto) Lymph % (Auto) Stewart % (Auto) Eos % (Auto) Baso % (Auto) Lymph # (Auto) Stewart # (Auto) Eos # (Auto) Baso # (Auto) Abs Immat Gran (auto) Absolute Neuts (auto) Absolute Nucleated RBC Nucleated RBC % (auto) Anion Gap Estim Creat Clear Calc Estimated GFR POC Glucose 382 H* Random Glucose Calcium Total Bilirubin AST ALT Alkaline Phosphatase Total Protein Albumin Urine Color Urine Appearance Urine pH Ur Specific [place] Urine Protein Urine Glucose (UA) Urine Ketones Urine Blood Urine Nitrite Ur Leukocyte Esterase Urine RBC Urine WBC Ur Squamous Epith Cells Urine Bacteria Hyaline Casts B-Hydroxybutyrate Assessment and Plan (1) Acute hyperglycemia: Status: Acute (2) TAYLOR (acute kidney injury): Status: Acute (3) Hypercalcemia: Status: Acute Plan 87-year-old male with past medical history of aortic stenosis status post TAVR, diabetes, hypertension, hyperlipidemia, hypothyroidism, orthostasis:seems dm with hyperglycemia and hyponatremia 1. Diabetes with hyperglycemia: Patient received 2 L fluid, insulin in the ED, fingersticks improved in 300s Fingersticks with sliding scale coverage, add IV fluids. Hemoglobin A1c Pseudohyponatremia-when adjusted for fingersticks-corrected sodium is normal. 2. TAYLOR: Possibly related to hyperglycemia, dehydration. Added IV fluid, monitor renal function and electrolytes closely. Holdlasix ,metformin 3. Mild hypercalcemia -possible related to dehydration. Continue IV fluids and monitor renal function electrolytes. 4. Artery flutter history: Continue diltiazem? Medical reconciliation pending Also look like on Eliquis per medical reconciliation still pending. 5. Hypertension blood pressure acceptable: Hold lasix ? and meds interfers with renal function med reconciliation still pending Patient will benefit from 2 midnight stays inpatient-due to diabetes with hyperglycemia, electrolytic abnormalities, TAYLOR-need hydration, fingersticks monitoring, renal function and electrolyte monitoring. If does not improve then may need nephrology evaluation. Time Spent With Patient Time: Total time managing care of this patient today ____ minutes. Quality Stroke Does the patient have a stroke diagnosis?: No VTE Prior VTE?: No VTE Risk Level:: Medical - moderate - high VTE Device Contraindication: N/A - Device Ordered VTE Drug Contraindication: N/A - Med Ordered
--- NOTE | 2022-11-24 15:46 | PHA.MEDREC ---
Pharmacy Consult ? Medication Reconciliation Pharmacy has completed the medication reconciliation. Patient states they still take Eliquis and get the medication through [facility], however claim history shows last fill during February 2022.
[2022-11-24 15:55] VITALS: BP 152/78; PULSE 65; RESP 14; TEMP 36.6; O2SAT 92
[2022-11-24 16:09] LABS: Estimated Average Glucose 283 mg/dL; Hemoglobin A1c % 11.5 %
[2022-11-24] MEDS: Lactated Ringers 1,000 ML 80 ML IVCONT (16:26)
[2022-11-24 17:54] LABS: Glucose, Whole Blood 259 mg/dL (60-115)
--- NOTE | 2022-11-24 18:10 | MHC.EDTECH ---
Pt used urinal at bedsid, voids 450mL of yellow-mireles urine.
[2022-11-24 19:43] VITALS: BP 164/74; PULSE 60; RESP 18; TEMP 36.3; O2SAT 95
[2022-11-24 20:40] LABS: Glucose, Whole Blood 414 mg/dL (60-115)
[2022-11-24 21:43] LABS: Glucose, Whole Blood 336 mg/dL (60-115)
[2022-11-24] MEDS: Cholecalciferol (Vitamin D3) 25 MCG TABLET 50 MCG PO (22:18)
[2022-11-24] MEDS: Apixaban 5 MG TABLET PO (22:18)
[2022-11-24] MEDS: Tamsulosin HCL 0.4 MG CAPSULE PO (22:19)
[2022-11-24] MEDS: dilTIAZem HCL CD 180 MG CAP.ER.24H PO (22:19)
[2022-11-24] MEDS: Metoprolol Succinate ER 25 MG TAB.ER.24H PO (22:19)
[2022-11-24] MEDS: Atorvastatin Calcium 80 MG TABLET PO (22:19)
[2022-11-25 04:00] VITALS: BP 122/67; PULSE 68; RESP 16; TEMP 36.2; O2SAT 94
[2022-11-25] MEDS: Lactated Ringers 1,000 ML 80 ML IVCONT (04:59)
[2022-11-25] MEDS: Levothyroxine Sodium 125 MCG TABLET PO (05:01)
[2022-11-25 06:03] LABS: Anion Gap 16 (12-20); Blood Urea Nitrogen 22 mg/dL (9-16); Calcium 9.9 mg/dL (8.4-10.2); Carbon Dioxide 25 mmol/L (22-29); Chloride 102 mmol/L (96-108); Creatinine Clr Calc Pharmacy 50.7; Estimated Glomerular Filt Rate > 60; Glucose Random 133 mg/dL (60-115); Potassium 3.8 mmol/L (3.3-5.1); Sodium 139 mmol/L (135-145)
[2022-11-25 07:21] VITALS: BP 154/78; PULSE 66; RESP 16; TEMP 36.2; O2SAT 92
[2022-11-25 07:31] LABS: Glucose, Whole Blood 211 mg/dL (60-115)
[2022-11-25] MEDS: Insulin Lispro 100 UNIT/ML 3 ML VIAL SUBCUT ×4 (07:48→20:43)
[2022-11-25] MEDS: Ferrous Sulfate 324 MG TABLET.DR PO (07:48)
[2022-11-25] MEDS: metFORMIN HCl 1,000 MG TABLET 1000 MG PO ×2 (07:48→20:27)
[2022-11-25] MEDS: Apixaban 5 MG TABLET PO ×2 (07:48→20:26)
[2022-11-25 11:15] LABS: Glucose, Whole Blood 297 mg/dL (60-115)
[2022-11-25] MEDS: glipiZIDE 5 MG TABLET 2.5 MG PO ×2 (11:34→16:30)
--- NOTE | 2022-11-25 13:35 | P.PNIM_ITS ---
Subjective Subjective Date of Service: 11/27/22 Interval History: Diabetes with hyperglycemia, TAYLOR. Review of Systems fs improving ,still 200-300 range generalised weak denies any chest pain or sob Physical Exam Vital Signs: Vital Signs: Last Vital Signs Temp 97.2 F 11/25/22 07:21 Pulse 66 11/25/22 07:21 Resp 16 11/25/22 07:21 BP 154/78 H 11/25/22 07:21 Pulse Ox 92 11/25/22 07:21 O2 Del Method Room Air 11/25/22 07:21 BMI result Body Mass Index 22.9 Appearance: Alert.? Oriented X3. cvs: rrr, [id number] . res: clear to auscultation ,no rhonchii or wheezing abd: no rebound or guarding ,nt, bs present. ext pulses present , no cyanosis . neuro: axo3 , nonfocal. Objective Data Active Medications Apixaban (Apixaban 5 Mg Tablet) 5 mg PO BID [facility] Last Admin: 11/25/22 07:48 Dose: 5 mg Documented By: MUKUL Ascorbic Acid (Ascorbic Acid 500 Mg Tablet) 500 mg PO BEDTIME PRITI Atorvastatin Calcium (Atorvastatin Calcium 80 Mg Tablet) 80 mg PO BEDTIME [facility] Last Admin: 11/24/22 22:19 Dose: 80 mg Documented By: HOPE Dextrose (Dextrose 50 % 25 Gm/50 Ml Syringe) 25 gm IVPUSH Q15M PRN; Protocol PRN Reason: per Hypoglycemia Standing Ord. Diltiazem HCl (Diltiazem Hcl Cd 180 Mg Cap.Er.24h) 180 mg PO BEDTIME [facility]; Protocol Last Admin: 11/24/22 22:19 Dose: 180 mg Documented By: HOPE Ferrous Sulfate (Ferrous Sulfate 324 Mg Tablet.Dr) 324 mg PO DAILY [facility] Last Admin: 11/25/22 07:48 Dose: 324 mg Documented By: MUKUL Glipizide (Glipizide 5 Mg Tablet) 2.5 mg PO BIDWM [facility] Last Admin: 11/25/22 11:34 Dose: 2.5 mg Documented By: MUKUL Glucose (Glucose Gel 15 Gm Gel..Gram.) 15 gm PO Q15M PRN; Protocol PRN Reason: per Hypoglycemia Standing Ord. Insulin Human Lispro (Insulin Lispro 100 Unit/Ml 3 Ml Vial) 0 unit SUBCUT QIDACHS [facility]; Protocol Last Admin: 11/25/22 11:34 Dose: 6 unit Documented By: MUKUL Levothyroxine Sodium (Levothyroxine Sodium 125 Mcg Tablet) 125 mcg PO DAILY@0600 [facility] Last Admin: 11/25/22 05:01 Dose: 125 mcg Documented By: HOPE Metformin HCl (Metformin Hcl 1,000 Mg Tablet) 1,000 mg PO BID [facility] Last Admin: 11/25/22 07:48 Dose: 1,000 mg Documented By: MUKUL Metoprolol Succinate (Metoprolol Succinate Er 25 Mg Tab.Er.24h) 25 mg PO BEDTIME [facility]; Protocol Last Admin: 11/24/22 22:19 Dose: 25 mg Documented By: HOPE Pharmacy Consult (Consult Rx Perform Med Rec) 1 each MISCELLANE ONCE PRN PRN Reason: Consult order Sodium Chloride (0.9 % Sodium Chloride Flush 3 Ml Syringe) 3 ml IVFLUSH QSHIFT [facility] Last Admin: 11/25/22 07:12 Dose: Not Given Documented By: MUKUL Non-Admin Reason: IV Running Tamsulosin HCl (Tamsulosin Hcl 0.4 Mg Capsule) 0.4 mg PO BEDTIME [facility] Last Admin: 11/24/22 22:19 Dose: 0.4 mg Documented By: HOPE Vitamin D (Cholecalciferol (Vitamin D3) 25 Mcg Tablet) 50 mcg PO BEDTIME [facility] Last Admin: 11/24/22 22:18 Dose: 50 mcg Documented By: HOPE Labs 11/24/22 12:23 11/25/22 05:27 Labs: Laboratory Results - last 24 hr 11/24/22 11/24/22 11/24/22 12:23 12:23 13:54 Anion Gap Estim Creat Clear Calc Estimated GFR POC Glucose 538 H* Random Glucose Estimat Average Glucose 283 Hemoglobin A1c % 11.5 Calcium B-Hydroxybutyrate 0.56 H 11/24/22 11/24/22 11/24/22 15:31 17:48 20:35 Anion Gap Estim Creat Clear Calc Estimated GFR POC Glucose 382 H* 259 H 414 H* Random Glucose Estimat Average Glucose Hemoglobin A1c % Calcium B-Hydroxybutyrate 11/24/22 11/25/22 11/25/22 21:38 05:27 07:24 Anion Gap 16 Estim Creat Clear Calc 50.7 Estimated GFR > 60 POC Glucose 336 H 211 H Random Glucose 133 H Estimat Average Glucose Hemoglobin A1c % Calcium 9.9 D B-Hydroxybutyrate 11/25/22 11:11 Anion Gap Estim Creat Clear Calc Estimated GFR POC Glucose 297 H Random Glucose Estimat Average Glucose Hemoglobin A1c % Calcium B-Hydroxybutyrate Assessment and Plan (1) Hypercalcemia: Status: Acute (2) TAYLOR (acute kidney injury): Status: Acute Plan 87-year-old male with past medical history of aortic stenosis status post TAVR, diabetes, hypertension, hyperlipidemia, hypothyroidism, orthostasis:seems dm with hyperglycemia and hyponatremia 1. Diabetes with hyperglycemia: Patient received 2 L fluid, insulin in the ED, fingersticks improved in 300s Fingersticks with sliding scale coverage Hemoglobin A1c 11.6 moniter fs closely-may need to add glipizide , patient was supposed to be on glimepiride but did not feel it up since -? Might be slowly getting hyperglycemic due to that. 2. TAYLOR: Possibly related to hyperglycemia, dehydration. improving IV fluid, monitor renal function and electrolytes closely. Holdlasix ,metformin 3. Mild hypercalcemia -possible related to dehydration. Continue IV fluids and monitor renal function electrolytes. 4. Artery flutter history:? Continue diltiazem/metoprolol, Eliquis 5. Hypertension: On diltiazem and metoprolol Hold lasix Feels generalized weak: Added PT evaluation. Inpatient need: Diabetes with hyperglycemia-needed close fingerstick monitoring , patient seems question noncompliance and still not adequate hyperglycemia control-will continue to monitor. Time Spent With Patient Time: Total time managing care of this patient today ____ minutes. Quality Stroke Does the patient have a stroke diagnosis?: No VTE Prior VTE?: No VTE Risk Level:: Medical - moderate - high VTE Device Contraindication: N/A - Device Ordered VTE Drug Contraindication: N/A - Med Ordered
--- NOTE | 2022-11-25 15:41 | MHC.CM.PN ---
PT REPORTS HE LIVES ALONE AND IS INDEPENDENT WITH CARE HE HAS ONLY A GLUCOMETER FOR DME HE HAS NO HOME SERVICES HCP AND MOLST ON FILE PCP: YELENA WYNNE IMM DELVIVERED DCP: HOME NO SERVICES VIA SELF TRANSPORT CAR IN LOT
[2022-11-25 15:43] VITALS: BP 132/81; PULSE 68; RESP 18; TEMP 36.3; O2SAT 97
[2022-11-25 16:09] LABS: Glucose, Whole Blood 187 mg/dL (60-115)
[2022-11-25] MEDS: 0.9 % Sodium Chloride Flush 3 ML SYRINGE IVFLUSH ×2 (16:30→20:27)
[2022-11-25 19:40] VITALS: BP 137/75; PULSE 67; RESP 16; TEMP 36.3; O2SAT 95
[2022-11-25] MEDS: Cholecalciferol (Vitamin D3) 25 MCG TABLET 50 MCG PO (20:25)
[2022-11-25] MEDS: Tamsulosin HCL 0.4 MG CAPSULE PO (20:26)
[2022-11-25] MEDS: Atorvastatin Calcium 80 MG TABLET PO (20:26)
[2022-11-25] MEDS: Ascorbic Acid 500 MG TABLET PO (20:26)
[2022-11-25] MEDS: Metoprolol Succinate ER 25 MG TAB.ER.24H PO (20:26)
[2022-11-25] MEDS: dilTIAZem HCL CD 180 MG CAP.ER.24H PO (20:26)
[2022-11-25 20:32] LABS: Glucose, Whole Blood 242 mg/dL (60-115)
[2022-11-26 03:31] VITALS: BP 117/58; PULSE 64; RESP 16; TEMP 36; O2SAT 95
[2022-11-26] MEDS: Levothyroxine Sodium 125 MCG TABLET PO (05:00)
[2022-11-26 07:22] VITALS: BP 146/80; PULSE 65; RESP 18; TEMP 36.4; O2SAT 95
[2022-11-26 07:31] LABS: Glucose, Whole Blood 326 mg/dL (60-115)
[2022-11-26] MEDS: metFORMIN HCl 1,000 MG TABLET 1000 MG PO (08:26)
[2022-11-26] MEDS: Insulin Lispro 100 UNIT/ML 3 ML VIAL SUBCUT ×2 (08:26→11:38)
[2022-11-26] MEDS: Ferrous Sulfate 324 MG TABLET.DR PO (08:27)
[2022-11-26] MEDS: Apixaban 5 MG TABLET PO (08:27)
[2022-11-26] MEDS: glipiZIDE 5 MG TABLET PO (08:27)
[2022-11-26] MEDS: 0.9 % Sodium Chloride Flush 3 ML SYRINGE IVFLUSH (08:27)
--- NOTE | 2022-11-26 09:09 | MHC.CM.PN ---
Addendum entered by Kellie Avila 11/26/22 10:52: [facility] HAS ACCEPTED PTS REFERRAL AND WILL PROVIDE SOC TOMORROW, 11/27/[address]IVE HIMSELF HOME AND IS AWARE THE VN WILL CONTACT HIM DIRECTLY Original Note: CM INFORMED PT WILL LIKELY DC HOME TODAY AND NEEDS [facility] NOT AVAILABLE TO ACCEPT REFERRAL MESSAGE LEFT FOR [facility] ASKING IF THEY WOULD BE ABLE TO PROVIDE SOC WITHIN 48 HOURS AWAITING RESPONSE
[2022-11-26] MEDS: guaiFENesin 100 MG/5 ML LIQUID 10 ML PO (09:39)
[2022-11-26] MEDS: Loratadine 10 MG TABLET PO (09:39)
--- NOTE | 2022-11-26 10:50 | PM.DS ---
DS: Providers Provider Date of Service: 11/26/22 Date of admission: 11/24/22 15:34 Date of discharge: 11/26/22 Primary care physician: Orestes Alex MD Attending physician on discharge: Tanya Johnson Discharging clinician: Tanya Johnson DS: Diagnosis Discharge Diagnosis (1) Hypercalcemia: Status: Acute (2) TAYLOR (acute kidney injury): Status: Acute (3) Acute hyperglycemia: Status: Acute DS: Summary Hospital Course Hospital Course: 87-year-old male with past medical history of aortic stenosis status post TAVR, diabetes, hypertension, hyperlipidemia, hypothyroidism, orthostasis:? Patient came to the hospital because found to have elevated fingersticks form at least 2-3 weeks duration.? Patient checks his fingersticks every day? -in 1st week of October his fingersticks are between 150-180 range, and subsequently he did not check his fingersticks until until this 1st week of November when he is fingersticks started to go up in 300-400 range, he said he was thinking does go to his primary doctor but never went there.? As so he went to his primary doctor today and was sent to the emergency room because his fingersticks 500-600 range.? He says that he did not change in his diet habits, and also he says that he was taking his diabetic medication regularly and is compliant to that. He denies any recent travel or any urinary or respiratory or abdominal symptoms(including nausea, vomiting, abdominal pain, fever or chills or cough or phlegm or any urinary complaint.) Denies any new complaint of chest pain or shortness of breath or fever or chills Denies any weakness or numbness. Lab imaging reviewed: CBC seems fine. Sodium 131 BUN 32 creatinine is 1.84 Fingersticks were 600-700 range initially. Calcium 10.6. Patient was given 2 L IV fluid in the emergency room and also 15 subcu of lispro-fingersticks are improving to 340s range. Hospital course: Patient was admitted for diabetes with hyperglycemia: Patient was on metformin and glimepiride before but he did not fill up his glimepiride since July. Started having slowly worsening of hyperglycemia-we went to PCP office and subsequently sent to ED for evaluation. Patient was started on metformin back also added fs with sliding scale coverage hemoglobin A1c sent: Subsequently with above management patient fingersticks are between 200range improving, hemoglobin A1c came around 11.5. Will send patient with the metformin and glipizide. Mild hypercalcemia possibly related to dehydration, improved with hydration. Patient was strongly advised follow-up fingersticks at home if consistently stay elevated consider follow-up with PCP outpatient. Monitor BMP outpatient. plan: Continue metformin, in addition added glipizide 5 mg b.i.d. Monitor fingersticks at home, if consistently elevated above 200s-consider adjusting glipizide or consider adding insulin out patiently Monitor hemoglobin A1c, BMP out patiently Above management discussed with the patient and his son in detail length both understand and in agreement with the above plan, time spent 50 minute. Time Spent with Patient Time attestation: Total time managing care of this patient today ____ minutes. Discharge coordination time: Greater than 30 minutes Quality: Safe Use of Opioids Does Pt have an Active Cancer Diagnosis on the Problem List?: No Quality: Stroke Does the patient have a stroke diagnosis?: No Physical Exam Vital Signs: Vital Signs: Last Vital Signs Temp 97.6 F 11/26/22 07:22 Pulse 65 11/26/22 07:22 Resp 18 11/26/22 07:22 BP 146/80 H 11/26/22 07:22 Pulse Ox 95 11/26/22 07:22 O2 Del Method Room Air 11/26/22 07:22 BMI result Body Mass Index 22.9 Appearance: Alert.? Oriented X3.? not in distress.? Eyes: Pupils equal, round and reactive to light.? Sclera nonicteric.? ENT: Pharynx normal.? Moist mucous membranes. cvs: rrr, [id number]. res: clear to auscultation ,no rhonchii or wheezing abd: no rebound or guarding ,nt, bs present. ext pulses present , no cyanosis . neuro: axo3 , nonfocal. DS: Data Data Completed and Pending Labs on day of discharge: Laboratory Results - last 24 hr 11/25/22 11/25/22 11/25/22 11:11 16:05 20:29 POC Glucose 297 H 187 H 242 H 11/26/22 07:26 POC Glucose 326 H Discharge Plan Discharge Anticipated Discharge Date/Time: 11/26/22 10:26 Patient Disposition: Home Health Service Discharge Diagnosis: dm with hyperglycemia ,TAYLOR Referrals: [facility] [Outside] - 1 Day (the visiting nurse will see you on Sunday11/27/22, they will call you at the number on file prior to arrival ) Orestes Alex MD [Primary Care Provider] - 1 Week Discharge Medications: New glipizide 5 mg Tablet 5 mg PO BIDWM Qty: 60 0RF Continued ascorbic acid (vitamin C) [Vitamin C] 1,000 mg Tablet 500 mg PO BEDTIME ferrous sulfate [FeroSul] 325 mg (65 mg iron) tablet 325 mg PO DAILY coenzyme Q10 [CoQ-10] 100 mg Capsule 200 mg PO BEDTIME cholecalciferol (vitamin D3) [Vitamin D3] 50 mcg (2,000 unit) Tablet 50 mcg PO BEDTIME omega 9-vfz-zjf-fish oil [Fish Oil] 1,000 mg (120 mg-180 mg) Capsule 1 cap PO DAILY [facility] 750 mg-100 mg- 1.65 mg-108 mg Tablet 2 tab PO BID atorvastatin 80 mg tablet 80 mg PO BEDTIME tamsulosin 0.4 mg capsule 0.4 mg PO BEDTIME metformin 500 mg tablet 1,000 mg PO BID furosemide 40 mg tablet 40 mg PO DAILY metoprolol succinate 25 mg tablet extended release 24 hr 25 mg PO BEDTIME levothyroxine 125 mcg tablet 125 mcg PO DAILY@0600 (DME) FreeStyle Lite Strips Strip See Rx Instructions .ROUTE DAILY Qty: 10 Rx Instructions: As directed diltiazem HCl 180 mg capsule,ext.rel 24h degradable 180 mg PO BEDTIME Eliquis 5 mg tablet 5 mg PO BID Discharge Orders: Discharge Order (Routine); Ordered 11/26/22 Ordered By: Tanya Johnson Diet: Advance to usual diet Activity on Discharge: As tolerated Stand Alone Forms: Patient Portal Discharge page Care Plan Goals: Patient was admitted for diabetes with hyperglycemia: Patient was on metformin and glimepiride before but he did not fill up his glimepiride since July. Started having slowly worsening of hyperglycemia-we went to PCP office and subsequently sent to ED for evaluation. Patient was started on metformin back also added fs with sliding scale coverage hemoglobin A1c sent: Subsequently with above management patient fingersticks are between 200range improving, hemoglobin A1c came around 11.5. Will send patient with the metformin and glipizide. Mild hypercalcemia possibly related to dehydration, improved with hydration. Patient was strongly advised follow-up fingersticks at home if consistently stay elevated consider follow-up with PCP outpatient. Monitor BMP outpatient. Health Concerns: As above. Plan of Treatment: As above. Assessment: As above. Patient Instructions: Diabetic Hyperglycemia (DC) Discharge Date/Time: 11/26/22 13:00
[2022-11-26 11:17] LABS: Glucose, Whole Blood 308 mg/dL (60-115)
--- NOTE | 2022-11-27 10:39 | P.F2F_ITS ---
Service Date Service Date: 11/27/22 Encounter Date of encounter: 11/27/22 Encounter: dm with hyperglycemia,swathi Reasons for Services Signs and symptoms assessed: monitor fingersticks, generalized weak Reason for residential: medication management, medication treatment and teach disease management MD Overseeing Care: Orestes Alex Homebound: Leaving the home is medically contraindicated at this time without the asist of a device and/or another person due th the listed conditions above and below. Reason homebound: weakness related to hospital stay Homebound supporting statement: Patient is generalized weak post hospitalization, has multiple comorbidities including diabetes with hyperglycemia need fingerstick monitoring, lab draws and appointment help. Certification: Based on the above findings, I certify that this patient is confined to the home and needs intermittent residential care, physical therapy and/or speech therapy, or continues to need occupational therapy. The patient is under my care, and I have initiated the establishment of the plan of care. The patient will be followed by a physician who will periodically review the plan of care. Time Spent With Patient Time: Total time managing care of this patient today ____ minutes.
== END 2022-11-26 13:00 | disposition home health service (06) | DRG 638 ==
LOC: HO.ED 15:30 → HO.EDOVER 15:41 → HO.S3 17:00
PROVIDERS: Admitting Provider Internal Medicine; Emergency Provider Emergency Medicine; PCP Internal Medicine; Visit Provider Internal Medicine
DX: E11.65 Type 2 diabetes mellitus with hyperglycemia (principal); N17.9 Acute kidney failure, unspecified; E03.9 Hypothyroidism, unspecified; E83.52 Hypercalcemia; E86.0 Dehydration; E78.5 Hyperlipidemia, unspecified; T38.3X6A Underdosing of insulin and oral hypoglycemic [antidiabetic] drugs, initial encounter; I10 Essential (primary) hypertension; Z95.2 Presence of prosthetic heart valve; Z87.891 Personal history of nicotine dependence; Z79.01 Long term (current) use of anticoagulants; Z79.84 Long term (current) use of oral hypoglycemic drugs; Z79.890 Hormone replacement therapy; Z79.899 Other long term (current) drug therapy
CPT/HCPCS: 36415; 71045; 80048; 80053; 81001; 82010; 82947; 83036; 85025; 97161; 99285

== ENCOUNTER 2022-12-21 11:23 | Outpatient (REF) | payer MEDICARE, SELFPAY ==
[2022-12-21 13:25] LABS: Alanine Aminotransferase 21 U/L (0-40); Albumin Level 4.1 g/dL (3.5-5.0); Alkaline Phosphatase 68 U/L (39-117); Aspartate Amino Transferase 25 U/L (5-37); Bilirubin Direct 0.3 mg/dL (0.0-0.5); Bilirubin Total 0.9 mg/dL (0.0-1.0); Blood Urea Nitrogen 38 mg/dL (9-16); Estimated Glomerular Filt Rate 52; Total Protein 6.9 g/dL (6.5-8.0)
[2022-12-21 13:33] LABS: Cholesterol 131 mg/dL; HDL Cholesterol 37 mg/dL; LDL Cholesterol Calculated 68 mg/dl; Triglycerides 132 mg/dL
[2022-12-21 14:00] LABS: Reflex LDLD? No
== END 2022-12-21 11:24 | disposition home or self-care (01) ==
LOC: HO.LNP 11:23
PROVIDERS: Visit Provider Internal Medicine
DX: E78.00 Pure hypercholesterolemia, unspecified (principal); I10 Essential (primary) hypertension; R79.9 Abnormal finding of blood chemistry, unspecified
CPT/HCPCS: 80061; 80076; 82565; 84520

== ENCOUNTER → 2022-12-28 10:52 | Outpatient (REF) | payer MEDICARE, SELFPAY ==
--- NOTE | 2022-12-28 10:58 | CA_ITS ---
Transthoracic Echocardiogram Patient (Last, First, Middle): Richard Chávez W Gender: Male Date of : 1935 Age: 87 Procedure Date: 12/28/2022 Procedure Type: Transthoracic Echocardiogram Location: OP Height: 177.8 cm Weight: 67.13 kg BSA: 1.84 m2 Heart Rate: 64 bpm BP: 110 / 60 mmHg Flarer: BERTHA Referring MD: Corey Jenkins MD Symptoms: S/P TRANSAORTIC VALVE REPLACEMENT Study Quality: Fair ECG Rhythm: Undetermined Conclusions: - The left ventricular systolic function is normal. The calculated ejection fraction is 63% by biplane method. - There is moderately decreased right ventricular systolic function. - A bioprosthetic aortic valve is present. The prosthetic aortic valve appears to be functioning normally. - Mild pulmonary hypertension is present. Findings Left Ventricle Normal left ventricular cavity size. There is mildly increased left ventricular wall thickness. The left ventricular systolic function is normal. The calculated ejection fraction is 63% by biplane method. There is no evidence of regional wall motion abnormalities. Diastolic function is indeterminate on the basis of available data. Right Ventricle Mildly increased right ventricular cavity size. There is moderately decreased right ventricular systolic function. Atria Both atria are normal in size. Aortic Valve A bioprosthetic aortic valve is present. The prosthetic aortic valve appears to be functioning normally. There is no aortic valve regurgitation. Mitral Valve The mitral valve appears normal. There is trace mitral valve regurgitation. There is no mitral valve stenosis. Pulmonic Valve The pulmonic valve is likely normal. There is trace pulmonic valve regurgitation. Tricuspid Valve Normal tricuspid valve structure. There is mild to moderate tricuspid valve regurgitation. Mild pulmonary hypertension is present. Great Vessels The asc aorta is normal in size. Venous The inferior vena cava is normal in size and collapses less than 50% with inspiration. Pericardium/Pleural There is no evidence of pericardial effusion. Prior Study Comparison No significant change compared to prior study dated: 03/02/2022. Measurements 2D Linear Measurements IVSd: 1.20 0.6-0.9/0.6-1.0 cm LVIDd: 4.40 3.9-5.3/4.2-5.9 cm LVIDd Index: 2.39 2.4-3.2/2.2-3.1 cm/m2 LVIDs: 2.80 2.0-3.6 cm LVPWd: 1.10 0.7-1.1 cm LA Diam: 4.10 2.7-3.8/3.0-4.0 cm LAIDs Index: 2.23 1.5-2.3 cm/m2 LV Mass: 224.20 67-162/88-224 g LV Mass Index: 121.85 43-95/49-115 g/m2 LVOT Diam: 2.20 3.0+(-)1.3 cm 2D Systolic Function EF 4C: 69.80 >55% EF 2C: 56.40 >55% EF BiP: 62.50 >55% Mitral Valve MV Pk E: 1.11 MV PK A: 0.63 MV Decel Time: 139.00 E/A: 1.80 E'Lateral: 10.90 E'Medial: 8.49 E/E' Med: 13.10 E/E' Lat: 10.20 PHT: 41.00 MVA PHT: 5.37 Decel [place]oux: 7.94 Aortic Valve AoV Pk Gerry: 1.86 AoV Mn Gerry: 1.18 AoV VTI: 0.32 AoV Pk Grad: 14.00 Aov Mn Grad: 7.00 ADY Cont.VTI: 2.17 LVOT LVOT Pk Gerry: 0.90 LVOT Mn Gerry: 0.60 LVOT VTI: 0.18 LVOT Pk Grad: 3.00 LVOT Mn Grad: 2.00 LVOT Diam: 2.20 LVOT Area: 3.80 Diastolic Function MV Pk E: 1.11 MV Pk A: 0.63 E/A: 1.80 E'Medial: 8.49 E/E' Med: 13.10 E' Laterial: 10.90 E/E' Lat: 10.20 Right Ventricle TAPSE (mm): 13.80 TVS' Gerry: 7.30 Tricuspid Valve TR Pk Gerry: 2.99 TR Pk Grad: 36.00 RA Press: 8.00 RVSP: 44.00 Great Vessels Aorta Sinus of Valsalva: 3.30 2.0-3.5 cm Ao Asc: 3.80 2.1-3.4 cm Pulmonary Valve PV Pk Gerry: 0.96 Peak PV Grad: 4.00 Updated in Other Vendor System with Status of Final Prince Flores MD electronically signed on 12/29/2022 1:40:28 PM with status of Final
[2022-12-28 11:46] LABS: MANUAL DIFF FLAG NO
[2022-12-28 12:27] LABS: Basophils Absolute Auto 0.1 X10*3/uL (0.0-0.2); Basophils Percent Auto 0.7 % (0-2); Eosinophils Absolute Auto 0.1 X10*3/uL (0.0-0.4); Eosinophils Percent Auto 1.6 % (0-4); Hematocrit 38.9 % (42.0-52.0); Hemoglobin 12.6 g/dl (14.0-18.0); Imm Gran Abs Auto 0.02 X10*3/uL (0.00-0.03); Imm Gran Pct Auto 0.3 % (0.0-0.4); Lymphocytes Absolute Auto 2.6 X10*3/uL (1.2-4.9); Lymphocytes Percent Auto 36.1 % (20-40); Mean Corpuscular HGB Conc 32.4 g/dl (31.0-36.0); Mean Corpuscular Hemoglobin 32.9 pg (27.0-33.0); Mean Corpuscular Volume 101.6 fL (80.0-98.0); Mean Platelet Volume 10.7 fL (9.4-12.4); Monocytes Absolute Auto 0.6 X10*3/uL (0.1-1.2); Monocytes Percent Auto 8.8 % (2-11); Neutrophils Absolute Auto 3.8 x10*3/uL (2.0-8.3); Neutrophils Percent Auto 52.5 % (45-73); Platelet Count 156 X10*3/uL (160-400); Red Blood Count 3.83 X10*6/uL (4.60-5.80); White Blood Count 7.3 X10*3/uL (4.8-10.8)
[2022-12-28 14:17] LABS: Anion Gap 17 (12-20); Blood Urea Nitrogen 31 mg/dL (9-16); Calcium 10.3 mg/dL (8.4-10.2); Carbon Dioxide 28 mmol/L (22-29); Chloride 100 mmol/L (96-108); Estimated Glomerular Filt Rate 47; Glucose Random 203 mg/dL (60-115); Potassium 4.6 mmol/L (3.3-5.1); Sodium 140 mmol/L (135-145)
== END ==
LOC: HO.CARD 10:52
PROVIDERS: PCP Internal Medicine; Visit Provider Internal Medicine Cardiovascular Disease
DX: Z95.2 Presence of prosthetic heart valve (principal)
CPT/HCPCS: 36415; 80048; 85025; 93306

== ENCOUNTER → 2022-12-28 10:58 | Outpatient (BNV) | payer MEDICARE, SELFPAY | PROVIDERS: PCP Internal Medicine; Visit Provider Internal Medicine | DX: Z95.4 Presence of other heart-valve replacement (principal) | CPT/HCPCS: 93306 ==

== ENCOUNTER 2023-03-05 12:12 | Outpatient (AMB) | payer MEDICARE, SELFPAY ==
[2023-03-05 12:31] VITALS: BP 120/78; PULSE 68; BMI 23.1
--- NOTE | 2023-03-05 12:31 | MHC.OFFVIS ---
Intake Vital Signs 03/05/23 12:31 Height 5 ft 9 in Weight 156 lb 8.451 oz BMI 23.1 BP 120/78 Blood Pressure Location Lt brachial Position Sitting Pulse 68 Intake Visit Reasons: 6 month f/u after echo Intake Note: 6 month follow-up after echo hearts ok Drug Safety Associate Required: No Project Leader: Project Leader Present Accompanied by: Spouse Allergies No Known Allergies [No Known Allergies*] Allergy (Verified 08/28/22 13:29) Medication List - Last Reconciled 03/05/23 by Home Kendall MD apixaban (Eliquis) 5 mg PO BID ascorbic acid (vitamin C) (Vitamin C) 500 mg PO BEDTIME atorvastatin 80 mg PO BEDTIME blood sugar diagnostic (FreeStyle Lite Strips) As directed cholecalciferol (vitamin D3) (Vitamin D3) 50 mcg PO BEDTIME coenzyme Q10 (CoQ-10) 200 mg PO BEDTIME diltiazem HCl ER 180 mg PO BEDTIME ferrous sulfate (FeroSul) 325 mg PO DAILY furosemide 40 mg PO DAILY glipizide 5 mg PO BIDWM [id number]-opigy-CF borate 750 mg-100 mg- 1.65 mg-108 mg ([facility] Purchext) 2 tabs PO BID levothyroxine 125 mcg PO DAILY@0600 metformin 1,000 mg PO BID metoprolol succinate ER 25 mg PO BEDTIME omega 9-zvo-wpp-fish oil 1,000 mg (120 mg-180 mg) (Fish Oil) 1 cap PO DAILY tamsulosin 0.4 mg PO BEDTIME HPI HPI Comments History of Present Illness Details Richard comes for follow-up. He has been doing well from cardiac perspective. Denies any exertional chest pain or shortness of breath. No orthopnea, PND. No prolonged palpitation irregular heartbeat. No bleeding issues or neurologic events. Denies any balance issues. Recent echocardiogram shows normally function bioprosthetic aortic valve with mildly reduced RV systolic function [facility] Medical History HTN (hypertension) Aortic stenosis Arthritis of right knee Calcific tendinitis of left shoulder Orthostasis (~2014) Diabetes mellitus (~2014) Knee effusion (~11/15/14) Hyperlipidemia (~2012) Hypothyroidism (~2012) Surgical History S/P TAVR (transcatheter aortic valve replacement) S/P wrist surgery History of cardiac cath Family History Father No problems noted. 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) Alcohol intake: never Patient Tobacco Use Status: Former Tobacco user Quit Date: quit over 40 years ago Tobacco use type: Pipe Years Smoked: 10 Advance Directives Date on File: 11/24/22 service: Yes Current occupational status: retired Current occupation: Right Handed Review of Systems Const Denies chills, Denies fatigue, Denies fever(s), Denies frequent falls, Denies weakness, Denies weight gain and Denies weight loss ENT Denies dizziness Card Denies chest pain, Denies leg edema, Denies lightheadedness, Denies palpitations, Denies dyspnea, Denies dyspnea on exertion, Denies orthopnea and Denies other (loss of consciousness) Resp Denies cough, Denies dyspnea and Denies dyspnea on exertion GI Denies hematochezia and Denies change in stool character Musc Denies abnormal gait, Denies muscle weakness, Denies numbness, Denies radiating pain into limb and Denies tingling Neuro Denies Abnormal speech present, Denies abnormal gait, Denies dizziness, Denies frequent falls, Denies numbness, Denies tingling and Denies weakness Endo Denies fatigue and Denies palpitations Physical Exam Vital Signs: Last Vital Signs Pulse 68 03/05/23 12:31 BP 120/78 03/05/23 12:31 BMI result Body Mass Index 23.1 Const General: cooperative, comfortable, no acute distress, alert, awake and Physically active Nutritional Appearance: average body habitus Orientation/consciousness: patient oriented x3 Limitations: no limitations Neck Neck: Yes trachea midline, Yes supple and Yes no JVD Carotids: delayed carotid upstroke Chest Chest palpation & inspection: normal inspection of the chest Resp Effort & Inspection: normal respiratory effort Cardio Jugular venous distension: no JVD Rhythm: abnormal rhythm irregularly irregular Heart sounds: S1 normal heart sound present, S2 normal heart sound present, no click, no gallops and Murmur heart sound present systolic early GI Auscultation: normal bowel sounds Skin General skin exam: no rashes or lesions noted Neuro General: patient oriented x3 and no focal motor deficits Speech: No Abnormal speech present Extrem General: Yes no clubbing, cyanosis or edema Psych Appearance: grossly normal Assessment & Plan Assessment & Plan (1) S/P TAVR (transcatheter aortic valve replacement): Code(s): Z95.2 - Presence of prosthetic heart valve Plan: Status post transcatheter aortic valve replacement with well-functioning bioprosthetic aortic valve. Continue current medical management. Continue current full oral anticoagulation with Eliquis. Continue SBE prophylaxis as per ACC/[place] guidelines. Continue risk factor modification. (2) Atrial flutter: Code(s): I48.92 - Unspecified atrial flutter Plan: Atrial flutter, currently rate controlled. No signs or symptoms related to it. No signs of heart failure. Continue full oral anticoagulation, currently on Eliquis 5 mg b.i.d.. Continue current rate control strategy. Will follow up in the clinic in 6 months time, sooner p.r.n.. Thank you for allowing me to partake in his care Coding Level of Care Code Est Pt Level 4 (35458) Diagnoses S/P TAVR (transcatheter aortic valve replacement) Z95.2 Atrial flutter I48.92
== END 2023-03-05 12:43 | disposition home or self-care (01) ==
PROVIDERS: PCP Internal Medicine; Referring Provider Internal Medicine; Visit Provider Internal Medicine Cardiovascular Disease
DX: Z95.2 Presence of prosthetic heart valve (principal); I48.92 Unspecified atrial flutter
CPT/HCPCS: 99214

== ENCOUNTER → 2023-03-05 12:12 | Outpatient (BNVA) | payer MEDICARE, SELFPAY | PROVIDERS: PCP Internal Medicine; Referring Provider Internal Medicine; Visit Provider Internal Medicine Cardiovascular Disease | DX: I48.92 Unspecified atrial flutter (principal); Z95.2 Presence of prosthetic heart valve | CPT/HCPCS: 99212 ==

== ENCOUNTER 2023-03-15 11:11 | Outpatient (AMB) | payer MEDICARE, SELFPAY ==
--- NOTE | 2023-03-15 11:13 | MHC.OFFVIS ---
Intake Intake Visit Reasons: New Prob- Right shoulder Bursitis Intake Note: Richard is an 87 year old right hand dominant male who presents today for a new problem visit with complaints of right shoulder pain. He states this has been going on for about a week and a half. Allergies No Known Allergies [No Known Allergies*] Allergy (Verified 03/15/23 11:15) Medication List - Last Reconciled 03/15/23 by Argelia Ruiz RN apixaban (Eliquis) 5 mg PO BID ascorbic acid (vitamin C) (Vitamin C) 500 mg PO BEDTIME atorvastatin 80 mg PO BEDTIME blood sugar diagnostic (FreeStyle Lite Strips) As directed cholecalciferol (vitamin D3) (Vitamin D3) 50 mcg PO BEDTIME coenzyme Q10 (CoQ-10) 200 mg PO BEDTIME diltiazem HCl ER 180 mg PO BEDTIME ferrous sulfate (FeroSul) 325 mg PO DAILY furosemide 40 mg PO DAILY glipizide 5 mg PO BIDWM oillhhig-mqveo-dmipg-CF borate 750 mg-100 mg- 1.65 mg-108 mg (Move Free [employer] [employer]) 2 tabs PO BID levothyroxine 125 mcg PO DAILY@0600 metformin 1,000 mg PO BID metoprolol succinate ER 25 mg PO BEDTIME omega 9-mfx-hky-fish oil 1,000 mg (120 mg-180 mg) (Fish Oil) 1 cap PO DAILY tamsulosin 0.4 mg PO BEDTIME HPI New Prob- Right shoulder Bursitis HPI Details Richard is an 87 year old man who presents with complaints of ~2 weeks right shoulder pain. He has pain with daily activity, worse with use of her shoulder. He says he feels the pain right in his joint and it occasionally brings a tear to my eye . He says his biggest complaint is difficulty sleeping due to pain [facility] Medical History HTN (hypertension) Aortic stenosis Arthritis of right knee Calcific tendinitis of left shoulder Orthostasis (~2014) Diabetes mellitus (~2014) Knee effusion (~11/15/14) Hyperlipidemia (~2012) Hypothyroidism (~2012) Surgical History S/P TAVR (transcatheter aortic valve replacement) S/P wrist surgery History of cardiac cath Family History Father No problems noted. Mother Cancer Social History Household Members: Spouse Housing: House Do you presently have visiting nurse or other home services: No ([employer]) Alcohol intake: never Patient Tobacco Use Status: Former Tobacco user Quit Date: quit over 40 years ago Tobacco use type: Pipe Years Smoked: 10 Advance Directives Date on File: 11/24/22 service: Yes Current occupational status: retired Current occupation: Right Handed Review of Systems Const All systems reviewed & are unremarkable except as noted in HPI and below Physical Exam Const General: no acute distress, alert and awake Orientation/consciousness: patient oriented x3 HEENT Head: Yes normocephalic and Yes atraumatic Eyes EOM: EOMs intact bilaterally Resp Effort & Inspection: normal respiratory effort and able to speak in complete sentences Cardio Jugular venous distension: no JVD Skin General skin exam: turgor normal Rashes: no rashes Neuro General: patient oriented x3 Extrem Other: Right Shoulder: Psych Appearance: grossly normal Affect: normal affect Attitude: cooperative Office Procedures Joint Injection/Drain Joint Injection/Drain Details: Injected 1 mL of Decadron and 3 mL 1% lidocaine and 3 mL of 0.25% Marcaine. Site was prepped using aseptic technique. Patient tolerated the procedure well. Primary Site: right shoulder Approach Used: posterolateral Coding 27971 - Large joint Procedure code (CPT) selection complete Results Reviewed Results Reviewed: 03/15/23 11:27 BUPivacaine MPF 0.25 % [Sensorcaine-MPF 0.25% 10 ML] 10 ml .ROUTE .STK-MED ONE Lidocaine HCl 2 % MPF [Xylocaine 2 % MPF] 5 ml .ROUTE .STK-MED ONE dexAMETHasone sod phosphate [Decadron] 4 mg .ROUTE .STK-MED ONE Assessment & Plan Assessment & Plan (1) Bursitis of right shoulder: Code(s): M75.51 - Bursitis of right shoulder Plan: This is an 87 year old man with right shoulder bursitis and ~2 weeks of pain. He has pain with daily activity, worse at night when trying to sleep. He denies any prior treatment. I discussed his diagnosis and treatment options. I injected his right shoulder bursa today, which he tolerated well. I discussed exercises and PT which does not interest him at this time. If his pain worsens he will return to see me. Plan Scribed for Romaine Dumont MD by Wilmar Bailon, nuclear medical technologist, on 03/15/23 at 11:30 AM, EST. Coding Level of Care Code Est Pt Level 4 (38870) Diagnoses Bursitis of right shoulder M75.51 CPT Codes Coding - 50902 Large joint: 74118 - Large joint ([id number])
== END 2023-03-15 11:39 | disposition home or self-care (01) ==
PROVIDERS: PCP Internal Medicine; Visit Provider Orthopaedic Surgery
DX: M75.51 Bursitis of right shoulder (principal)
CPT/HCPCS: 20610; 99213

== ENCOUNTER → 2023-03-15 11:11 | Outpatient (BNVA) | payer MEDICARE, SELFPAY | PROVIDERS: PCP Internal Medicine; Visit Provider Orthopaedic Surgery | DX: M75.51 Bursitis of right shoulder (principal) | CPT/HCPCS: 20610; 99212; J1100 ==

== ENCOUNTER 2023-04-03 04:00 | Emergency (ER) | payer MEDICARE, SELFPAY ==
--- NOTE | ~2023-04-03 | XR_ITS ---
EXAMINATION: XR WRIST, LEFT CLINICAL INFORMATION: Fall COMPARISON: None available. TECHNIQUE: PA, lateral, and oblique views of the left wrist. FINDINGS: Osseous alignment is anatomic. No acute fracture is seen. There is soft tissue swelling about the wrist. There is severe degenerative change at the basal joint of the thumb. XR/XR wrist LT min 3V IMPRESSION: No acute fracture identified. Soft tissue swelling.
--- NOTE | ~2023-04-03 | CT_ITS ---
EXAMINATION: CT HEAD WITHOUT CONTRAST CLINICAL INFORMATION: Head trauma on eliquis COMPARISON: None available. TECHNIQUE: Contiguous axial imaging was performed from the skull base to vertex without intravenous administration of contrast. This CT examination was performed using dose optimization techniques as appropriate, variously including the following: *Automated exposure control *Adjustment of mA and/or kV according to patient size (this includes techniques or standardized protocols for targeted exams where dose is matched to indication/reason for exam; i.e. extremities or head) *Use of iterative reconstruction technique DLP: 583 mGy-cm FINDINGS: There is no evidence of acute intracranial hemorrhage or territorial infarction. Chronic white matter small vessel ischemic changes. Cerebral atrophy with commensurate ventricular changes. No abnormal mass effect or midline shift is seen. Syed to white matter differentiation is well preserved. No extra-axial fluid collections are identified. There is no abnormal attenuation within the brain parenchyma. The osseous structures and soft tissues are normal. The mastoid air cells and visualized portions of the paranasal sinuses are well aerated. Vertebrobasilar and internal carotid atherosclerotic calcifications. CT/CT head/brain wo IV con IMPRESSION: 1. No acute intracranial pathology. 2. Chronic white matter small vessel ischemic changes.
[2023-04-03 04:07] VITALS: BP 164/71; PULSE 67; RESP 18; TEMP 20; O2SAT 100; BMI 20.5
[2023-04-03 07:49] VITALS: BP 154/71; PULSE 66; RESP 16; TEMP 36.6; O2SAT 99
--- NOTE | 2023-04-03 08:01 | ED.FALL ---
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 No loc, patient is on elliquis. complaint: fall Related Data Home Medications Medication Instructions Recorded Confirmed atorvastatin 80 mg tablet 80 mg PO BEDTIME 04/02/20 03/15/23 tamsulosin 0.4 mg capsule 0.4 mg PO BEDTIME 04/02/20 03/15/23 metformin 500 mg tablet 1,000 mg PO BID 09/20/21 03/15/23 apixaban 5 mg tablet (Eliquis) 5 mg PO BID 03/08/22 03/15/23 blood sugar diagnostic ([facility] #10 ea 08/28/22 03/15/23 Lite Strips) diltiazem HCl 180 mg 180 mg PO BEDTIME 08/28/22 03/15/23 capsule,extended release 24 hr, controlled furosemide 40 mg tablet 40 mg PO DAILY 08/28/22 03/15/23 levothyroxine 125 mcg tablet 125 mcg PO DAILY@0600 08/28/22 03/15/23 metoprolol succinate 25 mg 25 mg PO BEDTIME 08/28/22 03/15/23 tablet,extended release 24 hr ascorbic acid (vitamin C) 1,000 mg 500 mg PO BEDTIME 11/24/22 03/15/23 tablet (Vitamin C) cholecalciferol (vitamin D3) 50 50 mcg PO BEDTIME 11/24/22 03/15/23 mcg (2,000 unit) tablet (Vitamin D3) coenzyme Q10 100 mg capsule 200 mg PO BEDTIME 11/24/22 03/15/23 (CoQ-10) ferrous sulfate 325 mg (65 mg 325 mg PO DAILY 11/24/22 03/15/23 iron) tablet (FeroSul) glucosam 750 mg-chondroi 100 2 tab PO BID 11/24/22 03/15/23 mg-hyalur 1.65 mg-CF borate 108 mg tablet ([facility] [employer]) omega 6-ren-oqc-fish oil 1,000 mg 1 cap PO DAILY 11/24/22 03/15/23 (120 mg-180 mg) capsule (Fish Oil) Previous Rx's Medication Instructions Recorded glipizide 5 mg tablet 5 mg PO BIDWM #60 tabs 11/26/22 Allergies Allergy/AdvReac Type Severity Reaction Status Date / Time No Known Allergies Allergy Verified 03/15/23 11:15 [No Known Allergies*] Review of Systems Review of Systems: Yes all other systems are reviewed and are negative Neurologic: Denies Sensory deficit (Neuro) ON LICENSE OF [facility] Past Medical History Medical History HTN (hypertension) Aortic stenosis Arthritis of right knee Calcific tendinitis of left shoulder Orthostasis (~2014) Diabetes mellitus (~2014) Knee effusion (~11/15/14) Hyperlipidemia (~2012) Hypothyroidism (~2012) Surgical History S/P TAVR (transcatheter aortic valve replacement) S/P wrist surgery History of cardiac cath Family History Family History Father No problems noted. Mother Cancer Social History Social History Household Members: Spouse Housing: House Do you presently have visiting nurse or other home services: No ([employer]) Alcohol intake: never Patient Tobacco Use Status: Former Tobacco user Quit Date: quit over 40 years ago Tobacco use type: Pipe Years Smoked: 10 Advance Directives: Yes Advance Directives on File: Yes Advance Directives Date on File: 11/24/22 service: Yes Current occupational status: retired Current occupation: Right Handed Physical Exam Vital Signs: Vital Signs: Last Vital Signs Temp 98.2 F 04/03/23 11:32 Pulse 65 04/03/23 11:32 Resp 18 04/03/23 11:32 BP 165/71 H 04/03/23 11:32 Pulse Ox 95 04/03/23 11:32 O2 Del Method Room Air 04/03/23 11:32 BMI result Body Mass Index 20.5 Const: General: healthy appearing Nutritional Appearance: average body habitus Orientation/consciousness: oriented to person and patient oriented x3 Limitations: no limitations HEENT: Other: abrasion to forehead and nose Ears: external ears normal General nose exam: Normal external nose present Mouth: Normal oral and palatal mucosa present and oropharynx normal Throat: Yes posterior oropharynx normal Eyes: General: appearance normal, both eyes and all related structures Neck: Other: supple Neck: Yes normal visual inspection Chest: Chest palpation & inspection: normal inspection of the chest Resp: Auscultation: clear to auscultation bilaterally Cardio: Jugular venous distension: no JVD Rate: regular rate Rhythm: regular rhythm Heart sounds: S1 normal heart sound present and S2 normal heart sound present GI: Inspection: Yes normal to inspection Palpation (GI): Soft to palpation, nontender and No hepatosplenomegaly present Auscultation: normal bowel sounds : General: Yes no CVA tenderness Back/Spine/Pelvis: Back: no CVA tenderness Skin: General skin exam: no rashes or lesions noted Neuro: General: oriented to person and patient oriented x3 Cranial nerves: Yes CN's II-XII intact bilaterally Motor exam (neuro): 5/5 motor strength present throughout Sensory Exam: No Sensory deficit (Neuro) Extrem: Other: slight swelling and tenderness to left wrist, good pulses neuro intact Psych: Appearance: grossly normal Course Reevaluation(s) Reevaluation #1: no evidence of bleed or fracture will dc home Time: 11:24 Medications Administered Discontinued Medications Generic Name Dose Route Start Last Admin Trade Name Freq PRN Reason Stop Dose Admin Acetaminophen 650 mg 04/03/23 04:13 04/03/23 10:18 Acetaminophen 325 Mg Tablet PO 04/03/23 04:14 650 mg ONCE ONE Administration Medical Decision Making Differential Diagnosis Differential Diagnoses: The differential diagnosis associated with the presentation includes (cerebral bleed, subdural hematoma, subarachnoid bleed, wrist fracture) Admission/Observation Consideration of admission/observation: Escalation of care including admission/observation considered (upon arrival patient was considered for admission) Independent Interpretation I performed an independent interpretation of an: Plain X-Ray (wrist degenerative disease no fracture) and CT Scan (atrophy no bleed) Radiology Impression Discussion of test interpretation with radiology: I have reviewed the radiologist's reading. Independent Historian Clinical information obtained from an independent historian. History obtained from or confirmed by: Spouse Prescription Management I considered prescription management with: Pain Medication (narcotic pain medication considered but patient with only a sprain) Discharge Plan Discharge Clinical Impression: Head trauma, Left wrist sprain Patient Disposition: Home, Self-Care Instructions: Head Injury (ED), Wrist Sprain (ED) Additional Instructions: ice for pain off and on for 20 minutes, tylenol for pain every 6 hours Prescriptions: No Action ascorbic acid (vitamin C) [Vitamin C] 1,000 mg Tablet 500 mg PO BEDTIME ferrous sulfate [FeroSul] 325 mg (65 mg iron) tablet 325 mg PO DAILY coenzyme Q10 [CoQ-10] 100 mg Capsule 200 mg PO BEDTIME cholecalciferol (vitamin D3) [Vitamin D3] 50 mcg (2,000 unit) Tablet 50 mcg PO BEDTIME omega 9-iyu-qqs-fish oil [Fish Oil] 1,000 mg (120 mg-180 mg) Capsule 1 cap PO DAILY [facility] 750 mg-100 mg- 1.65 mg-108 mg Tablet 2 tab PO BID glipizide 5 mg Tablet 5 mg PO BIDWM Qty: 60 0RF atorvastatin 80 mg tablet 80 mg PO BEDTIME tamsulosin 0.4 mg capsule 0.4 mg PO BEDTIME metformin 500 mg tablet 1,000 mg PO BID furosemide 40 mg tablet 40 mg PO DAILY metoprolol succinate 25 mg tablet extended release 24 hr 25 mg PO BEDTIME levothyroxine 125 mcg tablet 125 mcg PO DAILY@0600 (DME) FreeStyle Lite Strips Strip See Rx Instructions .ROUTE DAILY Qty: 10 Rx Instructions: As directed diltiazem HCl 180 mg capsule,ext.rel 24h degradable 180 mg PO BEDTIME Eliquis 5 mg tablet 5 mg PO BID Referrals: Orestes Alex MD [Primary Care Provider] - 5 days
--- NOTE | 2023-04-03 08:10 | PC.NURSE ---
PT AMBULATED TO [facility] ROOM, HE HAS A ABREASION ON HIS NOSE AND FOREHEAD ,HE IS IN A SLING WITH A COLD PACK. COLD PACK WAS REPLACED. HE WAS MEDICATED BY BAKER PAINT ON THE 7P7A SHIFT
[2023-04-03] MEDS: Acetaminophen 325 MG TABLET 650 MG PO (10:18)
--- NOTE | 2023-04-03 10:26 | PC.NURSE ---
alert, nad, pain l arm returning, apap given, awaiting ct results
[2023-04-03 11:32] VITALS: BP 165/71; PULSE 65; RESP 18; TEMP 36.8; O2SAT 95
== END 2023-04-03 11:42 | disposition home or self-care (01) ==
PROVIDERS: Emergency Provider Emergency Medicine; PCP Internal Medicine
DX: S09.90XA Unspecified injury of head, initial encounter (principal); S63.502A Unspecified sprain of left wrist, initial encounter; W17.89XA Other fall from one level to another, initial encounter; E11.9 Type 2 diabetes mellitus without complications; I10 Essential (primary) hypertension; E78.5 Hyperlipidemia, unspecified; I48.92 Unspecified atrial flutter; Z87.891 Personal history of nicotine dependence; Z95.2 Presence of prosthetic heart valve; Z79.01 Long term (current) use of anticoagulants; Z79.84 Long term (current) use of oral hypoglycemic drugs; Z79.899 Other long term (current) drug therapy; Y93.89 Activity, other specified; Y92.410 Unspecified street and highway as the place of occurrence of the external cause; Y99.9 Unspecified external cause status
CPT/HCPCS: 70450; 73110; 99283; 99284

== ENCOUNTER 2023-04-14 20:39 | Emergency (ER) | payer MEDICARE, SELFPAY ==
--- NOTE | ~2023-04-14 | XR_ITS ---
EXAMINATION: XR HIP, RIGHT CLINICAL INFORMATION: Pain. Injury. COMPARISON: None available. TECHNIQUE: Frontal view of pelvis 2 views of the right hip. FINDINGS: No acute abnormality. There is no fracture. No dislocation. Moderate to marked degenerative joint disease of the hips bilateral, left worse than right. There is joint narrowing and marginal bone spurs of the acetabulum and femoral head. Sacroiliac joints are normal. XR/XR hip RT w PEL1V IMPRESSION: 1. No acute abnormality. 2. Degenerative joint disease of hips bilateral.
--- NOTE | ~2023-04-14 | CT_ITS ---
EXAMINATION: CT ABDOMEN AND PELVIS WITHOUT CONTRAST CLINICAL INFORMATION: Right-sided pain. COMPARISON: None available. TECHNIQUE: Multidetector volumetric imaging was performed from the superior aspect of the liver through the pubic symphysis. Sagittal and coronal reformatted images were obtained on the technologist's workstation. This CT examination was performed using dose optimization techniques as appropriate, variously including the following: *Automated exposure control *Adjustment of mA and/or kV according to patient size (this includes techniques or standardized protocols for targeted exams where dose is matched to indication/reason for exam; i.e. extremities or head) *Use of iterative reconstruction technique DLP: 424 mGy-cm FINDINGS: LUNG BASES: Status post TAVR. Marked emphysematous change of lungs bases. Mild bronchiectasis of the lower lobe bronchi. No acute airspace disease. LIVER, GALLBLADDER, AND BILIARY TREE: The liver is normal in size, shape, and attenuation. No focal hepatic lesion or biliary ductal dilatation is present. The gallbladder is unremarkable with no evidence of radiopaque gallstones, gallbladder wall thickening, or obvious pericholecystic inflammatory changes. PANCREAS: Unremarkable. SPLEEN: Unremarkable. ADRENAL GLANDS: Unremarkable. KIDNEYS AND URETERS: Absent right kidney. Left kidney is normal. No calculus or hydronephrosis. BLADDER: Unremarkable. GASTROINTESTINAL TRACT: There are numerous diverticula throughout the colon. There is no diverticulitis. There is no bowel wall thickening /edema. There is no bowel obstruction. There is a moderate volume of stool in the colon. The appendix is normal . The small bowel loops are unremarkable. The stomach is normal. There is no hiatal hernia. ABDOMINAL WALL: Small fat-containing umbilical hernia. No significantly inguinal hernia. LYMPH NODES: Normal. VASCULAR: Scattered vascular calcifications in the abdomen and pelvis. There is no aneurysm. PELVIC VISCERA: Unremarkable. OSSEOUS STRUCTURES: Multilevel degenerative spondylosis spine. CT/CT abdomen pelvis wo IV con IMPRESSION: 1. No acute abnormality CT scan abdomen pelvis. 2. Absent right kidney. 3. Diverticulosis of colon. No acute abnormality of the bowel. Fleischner guidelines were followed.
[2023-04-14 21:01] VITALS: BP 108/70; BP 134/65; PULSE 60; PULSE 65; RESP 18; TEMP 37; O2SAT 96; BMI 20.4
[2023-04-14 21:33] LABS: MANUAL DIFF FLAG NO
[2023-04-14 21:35] LABS: Basophils Percent Auto 0.3 % (0-2); Eosinophils Absolute Auto 0.1 X10*3/uL (0.0-0.4); Eosinophils Percent Auto 0.7 % (0-4); Hemoglobin 11.8 g/dl (14.0-18.0); Imm Gran Abs Auto 0.03 X10*3/uL (0.00-0.03); Imm Gran Pct Auto 0.3 % (0.0-0.4); Lymphocytes Absolute Auto 2.6 X10*3/uL (1.2-4.9); Lymphocytes Percent Auto 27.2 % (20-40); Mean Corpuscular HGB Conc 33.7 g/dl (31.0-36.0); Mean Corpuscular Volume 97.8 fL (80.0-98.0); Mean Platelet Volume 9.8 fL (9.4-12.4); Monocytes Absolute Auto 0.9 X10*3/uL (0.1-1.2); Monocytes Percent Auto 9.1 % (2-11); Neutrophils Percent Auto 62.4 % (45-73); Platelet Count 177 X10*3/uL (160-400); Red Blood Count 3.58 X10*6/uL (4.60-5.80); Red Cell Distribution Width 14.2 % (11.0-16.0); White Blood Count 9.6 X10*3/uL (4.8-10.8)
[2023-04-14 21:47] LABS: Alanine Aminotransferase 23 U/L (0-40); Albumin Level 4.1 g/dL (3.5-5.0); Alkaline Phosphatase 117 U/L (39-117); Anion Gap 18 (12-20); Aspartate Amino Transferase 27 U/L (5-37); Bilirubin Total 0.6 mg/dL (0.0-1.0); Blood Urea Nitrogen 31 mg/dL (9-16); Calcium 9.5 mg/dL (8.4-10.2); Carbon Dioxide 21 mmol/L (22-29); Chloride 107 mmol/L (96-108); Creatinine Clr Calc Pharmacy 35.9; Estimated Glomerular Filt Rate 51; Glucose Random 156 mg/dL (60-115); Potassium 4.6 mmol/L (3.3-5.1); Sodium 141 mmol/L (135-145); Total Protein 7.1 g/dL (6.5-8.0)
--- NOTE | 2023-04-14 22:24 | ED.GENADULT ---
HPI - General Adult General Chief complaint: Extremity Injury, Lower Stated complaint: SHARP R GROIN PAIN Time Seen by Provider: 04/14/23 22:23 Source: patient and EMS Mode of arrival: EMS Limitations: no limitations History of Present Illness HPI narrative: Patient is an 87 year old assigned male at with a history of atrial flutter, HTN, and DM presenting to the emergency department today with right groin pain. Patient states that 2 days ago he was working on the computer for 2 hours and when he stood up, he began to have right groin pain. Patient states that when he sits, it is fine however, when he stands and walks, he has the pain in his right groin. Patient denies any dizziness, lightheadedness, abdominal pain, nausea, vomiting, fever, chills, blurry vision, double vision, loss of vision, chest pain, difficulty breathing, shortness of breath, back pain, night sweats, pain with urination, increased urinary frequency, increased urinary urgency, blood in his urine or stool, syncope or a near syncopal episode, bowel incontinence, bladder incontinence, bowel retention, bladder retention, or any other complaints at this time. Onset (ago): day(s) (2) Location: right (groin) Severity: mild Severity scale (1-10): 4 Pain Consistency: intermittent Relieving factors: immobilization Exacerbating factors: movement Associated symptoms: denies other symptoms Treatments prior to arrival: none Related Data Home Medications Medication Instructions Recorded Confirmed atorvastatin 80 mg tablet 80 mg PO BEDTIME 04/02/20 03/15/23 tamsulosin 0.4 mg capsule 0.4 mg PO BEDTIME 04/02/20 03/15/23 metformin 500 mg tablet 1,000 mg PO BID 09/20/21 03/15/23 apixaban 5 mg tablet (Eliquis) 5 mg PO BID 03/08/22 03/15/23 blood sugar diagnostic (FreeStyle #10 ea 08/28/22 03/15/23 Lite Strips) diltiazem HCl 180 mg 180 mg PO BEDTIME 08/28/22 03/15/23 capsule,extended release 24 hr, controlled furosemide 40 mg tablet 40 mg PO DAILY 08/28/22 03/15/23 levothyroxine 125 mcg tablet 125 mcg PO DAILY@0600 08/28/22 03/15/23 metoprolol succinate 25 mg 25 mg PO BEDTIME 08/28/22 03/15/23 tablet,extended release 24 hr ascorbic acid (vitamin C) 1,000 mg 500 mg PO BEDTIME 11/24/22 03/15/23 tablet (Vitamin C) cholecalciferol (vitamin D3) 50 50 mcg PO BEDTIME 11/24/22 03/15/23 mcg (2,000 unit) tablet (Vitamin D3) coenzyme Q10 100 mg capsule 200 mg PO BEDTIME 11/24/22 03/15/23 (CoQ-10) ferrous sulfate 325 mg (65 mg 325 mg PO DAILY 11/24/22 03/15/23 iron) tablet (FeroSul) glucosam 750 mg-chondroi 100 2 tab PO BID 11/24/22 03/15/23 mg-hyalur 1.65 mg-CF borate 108 mg tablet ([facility] [facility]) omega 7-ypw-gxo-fish oil 1,000 mg 1 cap PO DAILY 11/24/22 03/15/23 (120 mg-180 mg) capsule (Fish Oil) Previous Rx's Medication Instructions Recorded glipizide 5 mg tablet 5 mg PO BIDWM #60 tabs 11/26/22 Allergies Allergy/AdvReac Type Severity Reaction Status Date / Time No Known Allergies Allergy Verified 03/15/23 11:15 [No Known Allergies*] Review of Systems Constitutional: Constitutional: Reports no additional constitutional complaints, Denies chills, Denies fever(s) and Denies night sweats Eyes: Eyes: Reports no additional eye complaints, Denies blurry vision, Denies change in vision, Denies diplopia, Denies eye discharge, Denies loss of vision and Denies eye pain ENT: Denies dizziness Cardiovascular: Cardiovascular: Reports no additional cardiovascular complaints, Denies chest pain, Denies lightheadedness, Denies Loss of Consciousness and Denies dyspnea Respiratory: Respiratory: Reports no additional respiratory complaints and Denies dyspnea Gastrointestinal: Gastrointestinal: Reports no additional gastrointestinal complaints, Denies abdominal pain, Denies melena, Denies hematochezia, Denies change in bowel habits and Denies change in stool character Genitourinary: Genitourinary: Reports no additional male genitourinary complaints, Denies hematuria, Denies oliguria, Denies difficulty urinating, Denies dysuria, Denies urinary frequency, Denies urinary hesitancy, Denies urinary incontinence and Denies urinary urgency Musculoskeletal: Musculoskeletal: Reports no additional musculoskeletal complaints, Denies numbness and Denies tingling Comments: right groin pain Neurologic: Denies dizziness, Denies loss of vision, Denies numbness and Denies tingling Psychiatric: Psychiatric: Reports no additional psychiatric complaints Endocrine: Endocrine: Reports no additional endocrine complaints Hematologic/Lymphatic: Hematologic/Lymphatic: Reports no additional hematologic/lymphatic complaints Allergic/Immunologic: Allergic/Immunologic: Reports no additional allergic/immunologic complaints [facility] Past Medical History Attestation statement: The following information was validated with the patient. Source: old records reviewed and nursing notes reviewed Medical History (Reviewed 04/15/23 @ 01:05 EDT by KENIA Shrestha) Hypercalcemia TAYLOR (acute kidney injury) Acute hyperglycemia HTN (hypertension) Aortic stenosis Arthritis of right knee Calcific tendinitis of left shoulder Orthostasis (~2014) Diabetes mellitus (~2014) Knee effusion (~11/15/14) Hyperlipidemia (~2012) Hypothyroidism (~2012) Surgical History (Reviewed 04/15/23 @ 01:05 EDT by KENIA Shrestha) S/P TAVR (transcatheter aortic valve replacement) S/P wrist surgery History of cardiac cath Family History Family History (Reviewed 04/15/23 @ 01:05 EDT by KENIA Shrestha) Father No problems noted. Mother Cancer Social History Social History (Reviewed 04/15/23 @ 01:05 EDT by KENIA Shrestha) Household Members: Spouse Housing: House Do you presently have visiting nurse or other home services: No ([employer]) Alcohol intake: never Patient Tobacco Use Status: Former Tobacco user Quit Date: quit over 40 years ago Tobacco use type: Pipe Years Smoked: 10 Smoked in Last 30 Days: No Use of substances other than those prescribed or required for medical reasons: No Advance Directives: Yes Advance Directives on File: Yes Advance Directives Date on File: 11/24/22 service: Yes Current occupational status: retired Current occupation: Right Handed Physical Exam ED Vital Signs: Vital Signs - 24 hr 04/14/23 21:01 04/14/23 22:44 04/15/23 00:02 Temperature 98.6 F Pulse Rate 65 63 63 Respiratory Rate 18 14 14 Blood Pressure 134/65 142/61 H 136/60 Pulse Oximetry 96 100 100 Oxygen Delivery Method Room Air Room Air BMI result Body Mass Index 20.4 Const General: cooperative, no acute distress, alert and awake Nutritional Appearance: well nourished Orientation/consciousness: patient oriented x3 Limitations: no limitations HENMT Head: Yes normal to inspection and Yes atraumatic Ears: hearing grossly normal bilaterally and external ears normal General nose exam: Normal external nose present, no nasal discharge noted and no epistaxis Face and sinus: Yes normal facial exam, No abrasion and No laceration Mouth: Normal oral and palatal mucosa present, no drooling and no muffled voice Eyes General: appearance normal, both eyes and all related structures Periorbital: periorbital findings normal Eyelids: Yes eyelids normal Conjunctivae: conjunctivae normal Pupils: Equal, round and reactive pupils present EOM: EOMs intact bilaterally Neck Neck: Yes normal visual inspection, Yes full ROM and Yes no lymphadenopathy Chest Chest palpation & inspection: normal inspection of the chest Resp Effort & Inspection: normal respiratory effort and able to speak in complete sentences Auscultation: clear to auscultation bilaterally Cardio Rate: regular rate Rhythm: regular rhythm GI Inspection: Yes normal to inspection Palpation (GI): Soft to palpation, not firm, nontender and no guarding Neuro General: patient oriented x3 and moves all extremities Cranial nerves: Yes Equal, round and reactive pupils present Cognition (Neuro): normal cognition Motor exam (neuro): 5/5 motor strength present throughout Sensory Exam: Normal double simultaneous stimulation for sensation Coordination: [id number] test normal Extrem General: Yes normal to inspection, Yes full ROM and Yes capillary refill normal Psych Appearance: grossly normal Mental Status: mental status grossly normal Affect: normal affect Attitude: cooperative Thought process: Normal thought process present Thought content: Normal thought content present Insight: Good insight present (Psych) Medical Decision Making Medical Decision Making MDM Narrative: Patient is an 87 year old assigned male at with a history of DM, HTN, and atrial flutter presenting to the emergency department today with right groin pain. Patient's physical exam was unremarkable. Patient's blood work was unremarkable. Patient's urine showed no acute process. Patient's right hip x-ray and right abdomen/pelvis CT showed no acute process. I explained my physical exam findings as well as all test results to the patient. I answered all questions asked by the patient. I stressed the importance of the patient taking his medication as prescribed. I stressed the importance of the patient following up with his primary care provider. I stressed the importance of the patient returning to the emergency department immediately if his symptoms were to worsen or if he were to develop any dizziness, shortness of breath, difficulty breathing, chest pain, blurry vision, loss of vision, nausea, vomiting, abdominal pain, fever, chills, back pain, or any other complaints. Patient verbalized agreement and understanding with this treatment plan and discharge. Differential Diagnosis Differential Diagnoses: The differential diagnosis associated with the presentation includes Right groin sprain Right groin strain Right groin pain Admission/Observation Consideration of admission/observation: Escalation of care including admission/observation considered Patient would have been admitted to the hospital had his work up had any findings where hospital admission was appropriate and his clinical presentation warranted hospital admission. Lab Data MDM Lab Attestation statement: I reviewed the patient's lab results. My interpretation of these studies and their corresponding values is that they are grossly normal. 04/14/23 21:28 04/14/23 21:28 Labs: Lab Results 04/14/23 04/15/23 Range/Units 21:28 00:03 WBC 9.6 (4.8-10.8) X10*3/uL RBC 3.58 L (4.60-5.80) X10*6/uL Hgb 11.8 L (14.0-18.0) g/dl Hct 35.0 L (42.0-52.0) % MCV 97.8 (80.0-98.0) fL MCH 33.0 (27.0-33.0) pg MCHC 33.7 (31.0-36.0) g/dl RDW 14.2 (11.0-16.0) % Plt Count 177 (160-400) X10*3/uL MPV 9.8 (9.4-12.4) fL Immature Gran % (Auto) 0.3 (0.0-0.4) % Neut % (Auto) 62.4 (45-73) % Lymph % (Auto) 27.2 (20-40) % [place]rentiss % (Auto) 9.1 (2-11) % Eos % (Auto) 0.7 (0-4) % Baso % (Auto) 0.3 (0-2) % Lymph # (Auto) 2.6 (1.2-4.9) X10*3/uL [place]rentiss # (Auto) 0.9 (0.1-1.2) X10*3/uL Eos # (Auto) 0.1 (0.0-0.4) X10*3/uL Baso # (Auto) 0.0 (0.0-0.2) X10*3/uL Abs Immat Gran (auto) 0.03 (0.00-0.03) X10*3/uL Absolute Neuts (auto) 6.0 (2.0-8.3) x10*3/uL Absolute Nucleated RBC 0.000 (0.0-0.012) X10*3/uL Nucleated RBC % (auto) 0.0 (0.0-0.2) /100WBC Sodium 141 (135-145) mmol/L Potassium 4.6 (3.3-5.1) mmol/L Chloride 107 (96-108) mmol/L Carbon Dioxide 21 L (22-29) mmol/L Anion Gap 18 (12-20) BUN 31 H (9-16) mg/dL Creatinine 1.32 (0.5-1.4) mg/dL Estim Creat Clear Calc 35.9 Estimated GFR 51 Random Glucose 156 H (60-115) mg/dL Calcium 9.5 D (8.4-10.2) mg/dL Total Bilirubin 0.6 (0.0-1.0) mg/dL AST 27 (5-37) U/L ALT 23 (0-40) U/L Alkaline Phosphatase 117 (39-117) U/L Total Protein 7.1 (6.5-8.0) g/dL Albumin 4.1 (3.5-5.0) g/dL Urine Color Yellow Urine Appearance Clear Urine pH 5.5 (5.0-9.0) Ur Specific [place] 1.020 (1.005-1.025) Urine Protein Trace (Neg-Trace) mg/dL Urine Glucose (UA) Negative (Negative) mg/dL Urine Ketones Negative (Negative) mg/dL Urine Blood Negative (Negative) Urine Nitrite Negative (Negative) Ur Leukocyte Esterase Negative (Negative) Urine RBC 0-2 (0-2) /HPF Urine WBC 0-5 (0-5) /HPF Ur Squamous Epith Cells 0-2 (0-2) /HPF Urine Bacteria None Seen (None Seen) Hyaline Casts 0-2 (0-2) /LPF Independent Interpretation I performed an independent interpretation of an: Plain X-Ray and CT Scan Interpretation: My interpretation is in agreement with the radiologist's impression of these imaging studies. EXAMINATION: XR HIP, RIGHT CLINICAL INFORMATION: Pain. Injury. COMPARISON: None available. TECHNIQUE: Frontal view of pelvis 2 views of the right hip. FINDINGS: No acute abnormality. There is no fracture. No dislocation. Moderate to marked degenerative joint disease of the hips bilateral, left worse than right. There is joint narrowing and marginal bone spurs of the acetabulum and femoral head. Sacroiliac joints are normal. XR/XR hip RT w PEL1V IMPRESSION: 1. No acute abnormality. 2. Degenerative joint disease of hips bilateral. Dictated By: Lincoln Ross MD Signed By: Electronically signed by Lincoln Ross MD 04/14/23 [id number] EXAMINATION: CT ABDOMEN AND PELVIS WITHOUT CONTRAST CLINICAL INFORMATION: Right-sided pain. COMPARISON: None available. TECHNIQUE: Multidetector volumetric imaging was performed from the superior aspect of the liver through the pubic symphysis. Sagittal and coronal reformatted images were obtained on the technologist's workstation. This CT examination was performed using dose optimization techniques as appropriate, variously including the following: *Automated exposure control *Adjustment of mA and/or kV according to patient size (this includes techniques or standardized protocols for targeted exams where dose is matched to indication/reason for exam; i.e. extremities or head) *Use of iterative reconstruction technique DLP: 424 mGy-cm FINDINGS: LUNG BASES: Status post TAVR. Marked emphysematous change of lungs bases. Mild bronchiectasis of the lower lobe bronchi. No acute airspace disease. LIVER, GALLBLADDER, AND BILIARY TREE: The liver is normal in size, shape, and attenuation. No focal hepatic lesion or biliary ductal dilatation is present. The gallbladder is unremarkable with no evidence of radiopaque gallstones, gallbladder wall thickening, or obvious pericholecystic inflammatory changes. PANCREAS: Unremarkable. SPLEEN: Unremarkable. ADRENAL GLANDS: Unremarkable. KIDNEYS AND URETERS: Absent right kidney. Left kidney is normal. No calculus or hydronephrosis. BLADDER: Unremarkable. GASTROINTESTINAL TRACT: There are numerous diverticula throughout the colon. There is no diverticulitis. There is no bowel wall thickening /edema. There is no bowel obstruction. There is a moderate volume of stool in the colon. The appendix is normal . The small bowel loops are unremarkable. The stomach is normal. There is no hiatal hernia. ABDOMINAL WALL: Small fat-containing umbilical hernia. No significantly inguinal hernia. LYMPH NODES: Normal. VASCULAR: Scattered vascular calcifications in the abdomen and pelvis. There is no aneurysm. PELVIC VISCERA: Unremarkable. OSSEOUS STRUCTURES: Multilevel degenerative spondylosis spine. CT/CT abdomen pelvis wo IV con IMPRESSION: 1. No acute abnormality CT scan abdomen pelvis. 2. Absent right kidney. 3. Diverticulosis of colon. No acute abnormality of the bowel. Fleischner guidelines were followed. Dictated By: Lincoln Ross MD Signed By: Electronically signed by Lincoln Ross MD 04/14/23 [id number] Radiology Impression Discussion of test interpretation with radiology: I have reviewed the radiologist's reading. Independent Historian Clinical information obtained from an independent historian. History obtained from or confirmed by: EMS (EMS provided additional history and confirmed the history provided by the patient.) Chronic Conditions Patient?s care impacted by: Diabetes and Hypertension Discharge Plan Discharge Clinical Impression: Pain in the groin Patient Disposition: Home, Self-Care Instructions: Groin Pain (ED) Additional Instructions: Follow up with your primary care provider and an orthopedic provider. Return to the emergency department immediately if your symptoms worsen or if you develop any dizziness, shortness of breath, difficulty breathing, chest pain, blurry vision, loss of vision, nausea, vomiting, abdominal pain, fever, chills, back pain, or any other complaints. Prescriptions: No Action ascorbic acid (vitamin C) [Vitamin C] 1,000 mg Tablet 500 mg PO BEDTIME ferrous sulfate [FeroSul] 325 mg (65 mg iron) tablet 325 mg PO DAILY coenzyme Q10 [CoQ-10] 100 mg Capsule 200 mg PO BEDTIME cholecalciferol (vitamin D3) [Vitamin D3] 50 mcg (2,000 unit) Tablet 50 mcg PO BEDTIME omega 2-hkj-dnl-fish oil [Fish Oil] 1,000 mg (120 mg-180 mg) Capsule 1 cap PO DAILY [facility] 750 mg-100 mg- 1.65 mg-108 mg Tablet 2 tab PO BID glipizide 5 mg Tablet 5 mg PO BIDWM Qty: 60 0RF atorvastatin 80 mg tablet 80 mg PO BEDTIME tamsulosin 0.4 mg capsule 0.4 mg PO BEDTIME metformin 500 mg tablet 1,000 mg PO BID furosemide 40 mg tablet 40 mg PO DAILY metoprolol succinate 25 mg tablet extended release 24 hr 25 mg PO BEDTIME levothyroxine 125 mcg tablet 125 mcg PO DAILY@0600 (DME) FreeStyle Lite Strips Strip See Rx Instructions .ROUTE DAILY Qty: 10 Rx Instructions: As directed diltiazem HCl 180 mg capsule,ext.rel 24h degradable 180 mg PO BEDTIME Eliquis 5 mg tablet 5 mg PO BID Referrals: [facility] [place] [facility] [Provider Group] (Call to establish and follow up with an orthopedic provider. ) Orestes Alex MD [Primary Care Provider] - Interventions: ED Discharge Assessment Last Done: 04/15/23 00:16 Discharge Date/Time: 04/15/23 00:17 Print Language: Romansh
[2023-04-14 22:44] VITALS: BP 142/61; PULSE 63; RESP 14; O2SAT 100
[2023-04-15 00:02] VITALS: BP 136/60; PULSE 63; RESP 14; O2SAT 100
[2023-04-15 00:12] LABS: Appearance Urine Clear; Color Urine Yellow; Glucose Urine UA Negative (Negative); Leukocyte Esterase Urine Negative (Negative); Nitrite Urine Negative (Negative); PH 5.5 (5.0-9.0); Urine Blood Negative (Negative); Urine Ketones Negative (Negative); Urine Protein Trace mg/dL (Neg-Trace)
--- NOTE | 2023-04-15 00:14 | PC.NURSE ---
pt ambulatory to restroom though utilized wheelchair to waiting room. pt calm and cooperative. pt provided with discharge packet. pt verbalized understanding of discharge plan. pt awaiting ride home from son waiting in waiting room
[2023-04-15 00:17] LABS: Bacteria Urine None Seen (None Seen); Hyaline Casts Urine 0-2 /LPF (0-2); RBC Urine 0-2 /HPF (0-2); Squamous Epithelial Cell Urine 0-2 /HPF (0-2); WBC Urine 0-5 /HPF (0-5)
== END 2023-04-15 00:17 | disposition home or self-care (01) ==
PROVIDERS: Emergency Provider Emergency Medicine; PCP Internal Medicine
DX: R10.30 Lower abdominal pain, unspecified (principal); I10 Essential (primary) hypertension; E11.9 Type 2 diabetes mellitus without complications; E78.5 Hyperlipidemia, unspecified; Z79.01 Long term (current) use of anticoagulants; Z79.899 Other long term (current) drug therapy; Z79.84 Long term (current) use of oral hypoglycemic drugs
CPT/HCPCS: 36415; 73502; 74176; 80053; 81001; 85025; 99284

== ENCOUNTER 2023-04-26 10:05 | Outpatient (AMB) | payer MEDICARE, SELFPAY ==
[2023-04-26 10:15] VITALS: BMI 20.4
--- NOTE | 2023-04-26 10:15 | A.OFFVIS_ITS ---
Intake Vital Signs 04/26/23 10:15 Height 5 ft 10 in Weight 142 lb BMI 20.4 Intake Visit Reasons: ov- right knee pain Intake Note: Richard is an 87 year old male who presents today for a follow up of his right knee. injection done in May of 2020. Patient reports that this injection was helpful and he would like to repeat today,. Patient reports that he has had pain in the right side groin to the knee about 2 weeks ago. He also reports that he had sone numbness and tingling of the left foot. He also explains that he has a pain in the butt while sitting. Allergies No Known Allergies [No Known Allergies*] Allergy (Verified 04/26/23 10:15) HPI ov- right knee pain HPI Details Richard is an 87 year old Diabetic man who presents with complaints of right knee & hip pain. He has pain with daily activity, worse with prolonged walking or using stairs. He has knee OA, and a hx of relief from steroid injections in the past. His last injection was in 05/2020, and he would like to repeat today. He complains of ~2 weeks right groin pain, which began when he stood up after prolonged sitting. He was seen in the ED on 04/14/23 and referred here to discuss his hip pain. He says his pain occurs when standing or walking, and denies any pain when sitting. He says his pain radiates occasionally down into his knee. He also complains of numbness & tingling in his left foot occasionally, as well as pain in his butt when sitting. He denies any burning, numbness, or tingling that radiates from his back and down his legs, it is just in his left foot. He is a Diabetic, and is not well-controlled. [facility] Medical History Hypercalcemia TAYLOR (acute kidney injury) Acute hyperglycemia HTN (hypertension) Aortic stenosis Arthritis of right knee Calcific tendinitis of left shoulder Orthostasis (~2014) Diabetes mellitus (~2014) Knee effusion (~11/15/14) Hyperlipidemia (~2012) Hypothyroidism (~2012) Surgical History S/P TAVR (transcatheter aortic valve replacement) S/P wrist surgery History of cardiac cath Family History Father No problems noted. 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 Review of Systems Const All systems reviewed & are unremarkable except as noted in HPI and below Physical Exam Vital Signs: BMI result Body Mass Index 20.4 Const General: no acute distress, alert and awake Orientation/consciousness: patient oriented x3 HEENT Head: Yes normocephalic and Yes atraumatic Eyes EOM: EOMs intact bilaterally Resp Effort & Inspection: normal respiratory effort and able to speak in complete sentences Cardio Jugular venous distension: no JVD Skin General skin exam: turgor normal Rashes: no rashes Neuro General: patient oriented x3 Extrem Other: Right Knee: TTP medial joint line right knee 5-120 deg motion stable to v/v stress Right Hip: Mild + impignement although overall minimal terri nwith full ROM nl gait Psych Appearance: grossly normal Affect: normal affect Attitude: cooperative Office Procedures Joint Injection/Drain Joint Injection/Drain Details: Injected 1 mL of Decadron and 3 mL 1% lidocaine and 3 mL of 0.25% Marcaine. Site was prepped using aseptic technique. Patient tolerated the procedure well. Primary Site: right knee Approach Used: anterolateral Coding 56354 - Large joint Procedure code (CPT) selection complete Results Reviewed Results Reviewed: I personally reviewed relevant radiographs Tricompartment osteoarthritis right knee. Severe medial compartment arthritis. Mild left knee medial compartment osteoarthritis. Degenerative joint disease of hips bilateral. Assessment & Plan Assessment & Plan (1) Arthritis of right knee: Code(s): M17.11 - Unilateral primary osteoarthritis, right knee Plan: This is an 87 year old man with severe right knee OA. He has pain with daily activity and a hx of relief from steroid injections in the past. I injected his right knee today, which he tolerated well. He can follow up prn. (2) Osteoarthritis of right hip: Code(s): M16.11 - Unilateral primary osteoarthritis, right hip Plan: Groin pain with standing from a seated position or prolonged ambulation. I recommend he remain active as tolerated. No acute intervention warranted. If his symptoms persist or worsen he can follow up to discuss a hip arthrogram. (3) Diabetes mellitus: Onset Date: ~2014 Code(s): E11.9 - Type 2 diabetes mellitus without complications Plan: I discussed the hyperglycemic effects of steroid injections. His most recent HgA1c was 11.5% on 11/24/22. Plan Scribed for Romaine Dumont MD by Wilmar Bailon, medical transcriber, on 04/26/23 at 10:50 AM, EST. Coding Level of Care Code Est Pt Level 4 (05063) Diagnoses Arthritis of right knee M17.11 Osteoarthritis of right hip M16.11 Diabetes mellitus E11.9 CPT Codes Coding - 50838 Large joint: 47392 - Large joint ([id number])
== END 2023-04-26 11:22 | disposition home or self-care (01) ==
PROVIDERS: PCP Internal Medicine; Visit Provider Orthopaedic Surgery
DX: M17.11 Unilateral primary osteoarthritis, right knee (principal); M16.11 Unilateral primary osteoarthritis, right hip
CPT/HCPCS: 20610; 99214

== ENCOUNTER → 2023-04-26 10:05 | Outpatient (BNVA) | payer MEDICARE, SELFPAY | PROVIDERS: PCP Internal Medicine; Visit Provider Orthopaedic Surgery | DX: M17.11 Unilateral primary osteoarthritis, right knee (principal); M16.11 Unilateral primary osteoarthritis, right hip; E11.9 Type 2 diabetes mellitus without complications | CPT/HCPCS: 20610; 99212; J0665; J1100 ==

== ENCOUNTER 2023-06-19 10:29 | Outpatient (REF) | payer MEDICARE, SELFPAY ==
[2023-06-19 10:35] LABS: MANUAL DIFF FLAG NO
[2023-06-19 10:52] LABS: Basophils Absolute Auto 0.1 X10*3/uL (0.0-0.2); Basophils Percent Auto 0.5 % (0-2); Eosinophils Absolute Auto 0.2 X10*3/uL (0.0-0.4); Eosinophils Percent Auto 2.1 % (0-4); Hematocrit 37.6 % (42.0-52.0); Hemoglobin 12.3 g/dl (14.0-18.0); Imm Gran Abs Auto 0.04 X10*3/uL (0.00-0.03); Imm Gran Pct Auto 0.4 % (0.0-0.4); Lymphocytes Absolute Auto 3.9 X10*3/uL (1.2-4.9); Lymphocytes Percent Auto 35.1 % (20-40); Mean Corpuscular HGB Conc 32.7 g/dl (31.0-36.0); Mean Corpuscular Hemoglobin 33.1 pg (27.0-33.0); Mean Corpuscular Volume 101.1 fL (80.0-98.0); Mean Platelet Volume 10.7 fL (9.4-12.4); Monocytes Absolute Auto 0.9 X10*3/uL (0.1-1.2); Monocytes Percent Auto 8.5 % (2-11); Neutrophils Absolute Auto 5.9 x10*3/uL (2.0-8.3); Neutrophils Percent Auto 53.4 % (45-73); Platelet Count 225 X10*3/uL (160-400); Red Blood Count 3.72 X10*6/uL (4.60-5.80); White Blood Count 11.1 X10*3/uL (4.8-10.8)
[2023-06-19 10:53] LABS: Appearance Urine Clear; Color Urine Yellow; Glucose Urine UA Negative (Negative); Leukocyte Esterase Urine Negative (Negative); Nitrite Urine Negative (Negative); Specific Gravity - Urine 1.015 (1.005-1.025); UMIC TRIGGER UACC YES; Urine Blood Negative (Negative); Urine Ketones Negative (Negative); Urine Protein 30 (1+) mg/dL (Neg-Trace)
[2023-06-19 10:58] LABS: Bacteria Urine None Seen (None Seen); Hyaline Casts Urine 0-2 /LPF (0-2); RBC Urine 0-2 /HPF (0-2); Squamous Epithelial Cell Urine 0-2 /HPF (0-2); WBC Urine 0-5 /HPF (0-5)
[2023-06-19 11:30] LABS: Estimated Average Glucose 146 mg/dL; Hemoglobin A1c % 6.7 % (<6.0)
[2023-06-19 11:44] LABS: Alanine Aminotransferase 22 U/L (0-40); Albumin Level 4.1 g/dL (3.5-5.0); Alkaline Phosphatase 110 U/L (39-117); Anion Gap 16 (12-20); Aspartate Amino Transferase 27 U/L (5-37); Bilirubin Total 0.7 mg/dL (0.0-1.0); Blood Urea Nitrogen 27 mg/dL (9-16); Calcium 9.8 mg/dL (8.4-10.2); Carbon Dioxide 28 mmol/L (22-29); Chloride 102 mmol/L (96-108); Cholesterol 126 mg/dL (<200); Estimated Glomerular Filt Rate 55; Glucose Fasting 148 mg/dL (60-99); HDL Cholesterol 42 mg/dL (>40); Iron 85 mcg/dL (45-160); LDL Cholesterol Calculated 63 mg/dL (<100); Percent Iron Saturation 29 % (15-50); Potassium 4.2 mmol/L (3.3-5.1); Sodium 142 mmol/L (135-145); Total Iron Binding Capacity 293 mcg/dL (228-428); Total Protein 7.3 g/dL (6.5-8.0); Triglycerides 107 mg/dL (<150); Unsaturated Iron Binding 208 ug/dL
[2023-06-19 11:46] LABS: TSH reflex Free T4 4.14 uIU/mL (0.32-4.0)
[2023-06-19 11:55] LABS: PSA,Total (Free>4and<10) 0.66 ng/mL (0.00-4.00)
[2023-06-19 12:14] LABS: Creatinine Urine 53.84 mg/dL; Microalbum/Creatinine Ratio Ur 395.6 ug/mg cr (<30)
[2023-06-19 12:17] LABS: Free T4 (Free Thyroxine) 1.16 ng/dL (0.71-1.85)
== END 2023-06-19 10:30 | disposition home or self-care (01) ==
LOC: HO.LNP 10:29
PROVIDERS: Visit Provider Internal Medicine
DX: E03.9 Hypothyroidism, unspecified (principal); N40.0 Benign prostatic hyperplasia without lower urinary tract symptoms; E78.00 Pure hypercholesterolemia, unspecified; R97.20 Elevated prostate specific antigen [PSA]; D69.6 Thrombocytopenia, unspecified; D50.9 Iron deficiency anemia, unspecified; E11.9 Type 2 diabetes mellitus without complications; Z12.5 Encounter for screening for malignant neoplasm of prostate
CPT/HCPCS: 80053; 80061; 81001; 82043; 82570; 83036; 83540; 84153; 84439; 84443; 85025

== ENCOUNTER 2023-08-28 12:32 | Outpatient (AMB) | payer MEDICARE, SELFPAY ==
--- NOTE | 2023-08-28 12:34 | A.OFFVIS_ITS ---
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 Present Accompanied by: Spouse Allergies No Known Allergies [No Known Allergies*] Allergy (Verified 04/26/23 10:15) Medication List - Last Reconciled 08/28/23 by Home Kendall MD apixaban (Eliquis) 5 mg PO BID ascorbic acid (vitamin C) (Vitamin C) 500 mg PO BEDTIME atorvastatin 80 mg PO BEDTIME blood sugar diagnostic (FreeStyle Lite Strips) As directed cholecalciferol (vitamin D3) (Vitamin D3) 50 mcg PO BEDTIME coenzyme Q10 (CoQ-10) 200 mg PO BEDTIME diltiazem HCl ER 180 mg PO BEDTIME ferrous sulfate (FeroSul) 325 mg PO DAILY furosemide 40 mg PO DAILY glipizide 5 mg PO BIDWM lgiaibss-qvevn-cpctw-CF borate 750 mg-100 mg- 1.65 mg-108 mg ([facility] Virtuix) 2 tabs PO BID levothyroxine 125 mcg PO DAILY@0600 metformin 1,000 mg PO BID metoprolol succinate ER 25 mg PO BEDTIME omega 3-wzj-mhz-fish oil 1,000 mg (120 mg-180 mg) (Fish Oil) 1 cap PO DAILY tamsulosin 0.4 mg PO BEDTIME HPI HPI Comments History of Present Illness Details Richard comes for follow-up. He has been doing very well from cardiac perspective. Takes care of his will time also exercises and has no issues. Denies any worsening shortness of breath. No orthopnea, PND, leg edema. No palpitations, lightheadedness, syncope. No bleeding issues or neurologic events. Takes all his medications regularly. [facility] Medical History Hypercalcemia TAYLOR (acute kidney injury) Acute hyperglycemia HTN (hypertension) Aortic stenosis Arthritis of right knee Calcific tendinitis of left shoulder Orthostasis (~2014) Diabetes mellitus (~2014) Knee effusion (~11/15/14) Hyperlipidemia (~2012) Hypothyroidism (~2012) Surgical History S/P TAVR (transcatheter aortic valve replacement) S/P wrist surgery History of cardiac cath Family History Father No problems noted. 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) Alcohol intake: never Patient Tobacco Use Status: Former Tobacco user Quit Date: quit over 40 years ago Tobacco use type: Pipe Years Smoked: 10 Advance Directives Date on File: 11/24/22 service: Yes Current occupational status: retired Current occupation: Right Handed Review of Systems Const Denies chills, Denies fatigue, Denies fever(s), Denies frequent falls, Denies weakness, Denies weight gain and Denies weight loss ENT Denies dizziness Card Denies chest pain, Denies leg edema, Denies lightheadedness, Denies palpitations, Denies dyspnea, Denies dyspnea on exertion, Denies orthopnea and Denies other (loss of consciousness) Resp Denies cough, Denies dyspnea and Denies dyspnea on exertion GI Denies hematochezia and Denies change in stool character Musc Denies abnormal gait, Denies muscle weakness, Denies numbness, Denies radiating pain into limb and Denies tingling Neuro Denies Abnormal speech present, Denies abnormal gait, Denies dizziness, Denies frequent falls, Denies numbness, Denies tingling and Denies weakness Endo Denies fatigue and Denies palpitations Physical Exam Vital Signs: Last Vital Signs Pulse 68 08/28/23 12:36 BP 112/74 08/28/23 12:36 BMI result Body Mass Index 20.2 Const General: cooperative, comfortable, no acute distress, alert, awake and Physically active Nutritional Appearance: average body habitus Orientation/consciousness: patient oriented x3 Limitations: no limitations Neck Neck: Yes trachea midline, Yes supple and Yes no JVD Carotids: delayed carotid upstroke Chest Chest palpation & inspection: normal inspection of the chest Resp Effort & Inspection: normal respiratory effort Cardio Jugular venous distension: no JVD Rhythm: abnormal rhythm irregularly irregular Heart sounds: S1 normal heart sound present, S2 normal heart sound present, no click, no gallops and Murmur heart sound present systolic early GI Auscultation: normal bowel sounds Skin General skin exam: no rashes or lesions noted Neuro General: patient oriented x3 and no focal motor deficits Speech: No Abnormal speech present Extrem General: Yes no clubbing, cyanosis or edema Psych Appearance: grossly normal Assessment & Plan Assessment & Plan (1) S/P TAVR (transcatheter aortic valve replacement): Code(s): Z95.2 - Presence of prosthetic heart valve Plan: Status post transcatheter aortic valve replacement for severe aortic stenosis, symptomatic. Doing very well from that perspective. Continue full oral anticoagulation, currently on Eliquis. SBE prophylaxis as per ACC/[place] guidelines. Continue current aggressive blood pressure control and risk factor modification. Follow-up echocardiogram in 6 months time. (2) Atrial flutter: Code(s): I48.92 - Unspecified atrial flutter Plan: Chronic persistent atrial flutter without any symptoms. Continue Cardizem therapy for rate control. No indication for pursuing rhythm control approach at this point time. Continue full oral anticoagulation, currently on Eliquis 5 mg b.i.d.. Semi annual renal function test should be pursued. Follow up in the clinic in 6 months time, sooner p.r.n.. Thank you for allowing me to partake in his care Coding Level of Care Code Est Pt Level 4 (44477) Diagnoses S/P TAVR (transcatheter aortic valve replacement) Z95.2 Atrial flutter I48.92
[2023-08-28 12:36] VITALS: BP 112/74; PULSE 68; BMI 20.2
== END 2023-08-28 12:51 | disposition home or self-care (01) ==
PROVIDERS: PCP Internal Medicine; Visit Provider Internal Medicine Cardiovascular Disease
DX: Z95.2 Presence of prosthetic heart valve (principal); I48.92 Unspecified atrial flutter
CPT/HCPCS: 99214

== ENCOUNTER → 2023-08-28 12:32 | Outpatient (BNVA) | payer MEDICARE, SELFPAY | PROVIDERS: PCP Internal Medicine; Visit Provider Internal Medicine Cardiovascular Disease | DX: Z95.2 Presence of prosthetic heart valve (principal); I48.92 Unspecified atrial flutter | CPT/HCPCS: 99212 ==

== ENCOUNTER 2023-11-13 12:06 | Outpatient (AMB) | payer MEDICARE, SELFPAY ==
--- NOTE | 2023-11-13 12:09 | AM.OFFWIN_ITS ---
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 Unknown mechanism of fall, he notes he has fallen 4 times in the past 6 months and has pending neurology appointment to figure out why. He denies syncope, near-syncope or dizziness at the time. He denies loss of consciousness at the time. He states he cleaned himself up and was able to continue to read to children which is where he was headed at the time of the fall. He denies headache, vision changes, focal weakness or dizziness now. His main complaint is a growing hematoma over his right eyebrow. [facility] Medical History Hypercalcemia TAYLOR (acute kidney injury) Acute hyperglycemia HTN (hypertension) Aortic stenosis Arthritis of right knee Calcific tendinitis of left shoulder Orthostasis (~2014) Diabetes mellitus (~2014) Knee effusion (~11/15/14) Hyperlipidemia (~2012) Hypothyroidism (~2012) Surgical History S/P TAVR (transcatheter aortic valve replacement) S/P wrist surgery History of cardiac cath Family History Father No problems noted. 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) Alcohol intake: never Patient Tobacco Use Status: Former Tobacco user Tobacco use type: Pipe Years Smoked: 10 Advance Directives Date on File: 11/24/22 service: Yes Current occupational status: retired Current occupation: Right Handed Review of Systems Const Reports as per HPI, Reports no additional complaints and Denies weakness Eyes Reports as per HPI, Reports no additional complaints, Denies blurry vision, Denies change in vision, Denies diplopia and Reports other (Hematomas noted) ENT Details: Denies epistaxis or change in hearing wears hearing aids at baseline Reports no additional complaints, Reports as per HPI and Denies nasal discharge Card Details: Known heart murmur Reports as per HPI and Reports no additional complaints Resp Reports as per HPI and Reports no additional complaints Musc Details: Abrasions on nose and right knee no other complaints Reports no additional complaints and Reports as per HPI Skin/Breast Denies lesions Neuro Reports no additional complaints, Reports as per HPI and Denies weakness Physical Exam Vital Signs: Last Vital Signs Temp 97.9 F 11/13/23 12:10 Pulse 76 11/13/23 12:10 BP 128/76 11/13/23 12:10 Pulse Ox 98 11/13/23 12:10 Oxygen Delivery Method Room Air 11/13/23 12:10 Const General: cooperative, comfortable and no acute distress Orientation/consciousness: patient oriented x3 HEENT General nose exam: Abnormal external nose present nasal abrasion; Negative for nasal tenderness, no nasal discharge noted and no epistaxis Face and sinus: Yes abrasion, Yes ecchymosis (Varying ecchymosis about the forehead was dependent ecchymosis below eyes), Yes erythema and Yes edema (Large hematoma above right brow as grown over past 2-3 days) Eyes Visual Stanley: normal visual stanley by confrontation Alignment and Position: alignment normal Periorbital: periorbital findings abnormal right periorbital swelling (And medial right brow bone), periorbital tenderness and periorbital ecchymosis Eyelids: Yes eyelids normal Conjunctivae: conjunctivae normal Sclerae: sclerae normal Pupils: Equal, round and reactive pupils present EOM: EOMs intact bilaterally Resp Effort & Inspection: normal respiratory effort Auscultation: clear to auscultation bilaterally Cardio Rate: regular rate Rhythm: regular rhythm Neuro General: patient oriented x3, gait normal and moves all extremities Cranial nerves: Yes CN's II-XII intact bilaterally, Yes Equal, round and reactive pupils present, Yes Bilaterally intact EOM present and Yes Midline tongue present Cognition (Neuro): normal cognition Speech: Other speech findings present (Neuro) (Normal speech, patient is able to give HPI) Gait exam (Neuro): Normal gait present Motor exam (neuro): 5/5 motor strength present throughout Assessment & Plan Assessment & Plan (1) Facial trauma: Code(s): S09.93XA - Unspecified injury of face, initial encounter Qualifiers: Encounter type: initial encounter Qualified Code(s): S09.93XA - Unspecified injury of face, initial encounter Plan: Given patient's age, use of blood thinners and significant growing hematoma advised patient to be seen in emergency department for CT of the head and facial bones to rule out slow internal bleeding or fracture. He is stable and neurologically intact and will go by car. Expect called ahead to ED. Coding Level of Care Code Est Pt Level 4 (19079) Diagnoses Facial injury, initial encounter S09.93XA Encounter type: initial encounter
[2023-11-13 12:10] VITALS: BP 128/76; PULSE 76; TEMP 36.6; O2SAT 98
== END 2023-11-13 12:24 | disposition home or self-care (01) ==
PROVIDERS: PCP Internal Medicine; Visit Provider Physician Assistant
DX: S09.93XA Unspecified injury of face, initial encounter (principal)
CPT/HCPCS: 99214

== ENCOUNTER 2023-11-13 13:05 | Emergency (ER) | payer MEDICARE, SELFPAY ==
--- NOTE | ~2023-11-13 | XR_ITS ---
EXAMINATION: XR CHEST CLINICAL INFORMATION: Fall. COMPARISON: Chest x-ray dated 11/26/2022 and 09/03/2017 TECHNIQUE: 2 views of the chest were obtained. FINDINGS: The cardiomediastinal silhouette is within normal limits in size. TAVR noted in place. Lungs bilaterally are symmetrically hyperexpanded and hyperlucent, consistent with obstructive emphysematous lung disease. Linear opacities are seen in the lung bases bilaterally, consistent with atelectasis or scarring. No focal consolidation, effusion or pneumothorax is seen. Diffuse osteopenia. Mild vertebral spondylosis in mid and lower thoracic spine. XR/XR chest 2V IMPRESSION: Obstructive emphysematous lung disease with bibasilar linear atelectasis or scarring. No acute pulmonary process seen.
--- NOTE | ~2023-11-13 | CT_ITS ---
EXAMINATION: CT HEAD AND FACIAL BONES WITHOUT CONTRAST CLINICAL INFORMATION: Fall anticoagulation COMPARISON: CT head from 04/03/2023 TECHNIQUE: Contiguous axial imaging was performed from the skull base to vertex and facial bones without intravenous administration of contrast. This CT examination was performed using dose optimization techniques as appropriate, variously including the following: *Automated exposure control *Adjustment of mA and/or kV according to patient size (this includes techniques or standardized protocols for targeted exams where dose is matched to indication/reason for exam; i.e. extremities or head) *Use of iterative reconstruction technique DLP: 583.09 mGy-cm (CT Head) 308.8 mGy-cm (CT Facial Bones) FINDINGS: There is no evidence of acute intracranial hemorrhage or territorial infarction. Chronic white matter small vessel ischemic changes. Cerebral atrophy with commensurate ventricular changes. Physiologic mineral deposition of the bilateral basal ganglia No abnormal mass effect or midline shift is seen. Syed to white matter differentiation is well preserved. No extra-axial fluid collections are identified. Atherosclerotic calcifications. The ventricles are normal in size. There is no abnormal attenuation within the brain parenchyma.. Soft tissue hematoma overlying the right frontal sinus/medial supraorbital rim measuring 2.5 x 1.7 cm without underlying osseous defect. Comminuted mildly displaced bilateral nasal bone fractures. The paranasal sinuses are well-aerated. No air-fluid levels are seen. There is leftward deviation of the nasal septum. The ostiomeatal complexes are clear. The lamina papyracea are intact. The ethmoid roofs are symmetric. Slight mucoperiosteal thickening of the bilateral maxillary sinuses. The mastoid air cells and visualized middle ear cavities are well-aerated. The orbits are normal. The TMJs are unremarkable. CT/CT cervical spine wo IV con IMPRESSION: 1. No acute intracranial pathology. 2. Soft tissue hematoma overlying the right frontal sinus/medial supraorbital rim measuring 2.5 x 1.7 cm without underlying osseous defect. 3. Comminuted mildly displaced bilateral nasal bone fractures. 4. Chronic white matter small vessel ischemic changes. EXAMINATION: Noncontrast CT scan of the cervical spine. INDICATION: Fall COMPARISON: None. TECHNIQUE: Helical, multidetector axial images were obtained from the occiput to the upper thorax. Coronal and sagittal reformats of the cervical spine were provided for interpretation. DLP: 324.75 mGy-cm FINDINGS: No acute fractures or dislocations of the cervical spine are seen. Straightening the normal cervical curvature. Grade 1 anterolisthesis of C2 on C3 and C7 on T1. Grade 1 retrolisthesis of C4 on C5. Multilevel degenerative changes. Anatomic alignment and positioning of the vertebral bodies and posterior elements is noted. The atlantoaxial joint and craniovertebral articulations are normal without evidence of subluxation. There is no prevertebral soft tissue swelling. Biapical pleural parenchymal lung scarring. IMPRESSION: 1. No acute visible fracture or dislocation. 2. Straightening the normal cervical curvature. 3. Grade 1 anterolisthesis of C2 on C3 and C7 on T1. 4. Grade 1 retrolisthesis of C4 on C5. 5. Multilevel degenerative changes.
--- NOTE | 2023-11-13 13:32 | ED.GENADULT ---
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 plan to see urologist now no seizure activity no palpitation no other injuries Related Data Home Medications ?Medication ?Instructions ?Recorded ?Confirmed atorvastatin 80 mg tablet 80 mg PO BEDTIME 04/02/20 08/28/23 tamsulosin 0.4 mg capsule 0.4 mg PO BEDTIME 04/02/20 08/28/23 metformin 500 mg tablet 1,000 mg PO BID 09/20/21 08/28/23 apixaban 5 mg tablet (Eliquis) 5 mg PO BID 03/08/22 08/28/23 blood sugar diagnostic (FreeStyle #10 ea 08/28/22 08/28/23 Lite Strips) diltiazem HCl 180 mg 180 mg PO BEDTIME 08/28/22 08/28/23 capsule,extended release 24 hr, controlled furosemide 40 mg tablet 40 mg PO DAILY 08/28/22 08/28/23 levothyroxine 125 mcg tablet 125 mcg PO DAILY@0600 08/28/22 08/28/23 metoprolol succinate 25 mg 25 mg PO BEDTIME 08/28/22 08/28/23 tablet,extended release 24 hr ascorbic acid (vitamin C) 1,000 mg 500 mg PO BEDTIME 11/24/22 08/28/23 tablet (Vitamin C) cholecalciferol (vitamin D3) 50 50 mcg PO BEDTIME 11/24/22 08/28/23 mcg (2,000 unit) tablet (Vitamin D3) coenzyme Q10 100 mg capsule 200 mg PO BEDTIME 11/24/22 08/28/23 (CoQ-10) ferrous sulfate 325 mg (65 mg 325 mg PO DAILY 11/24/22 08/28/23 iron) tablet (FeroSul) glucosam 750 mg-chondroi 100 2 tab PO BID 11/24/22 08/28/23 mg-hyalur 1.65 mg-CF borate 108 mg tablet ([employer]) omega 0-zxq-xrl-fish oil 1,000 mg 1 cap PO DAILY 11/24/22 08/28/23 (120 mg-180 mg) capsule (Fish Oil) Previous Rx's ?Medication ?Instructions ?Recorded glipizide 5 mg tablet 5 mg PO BIDWM #60 tabs 11/26/22 Allergies Allergy/AdvReac Type Severity Reaction Status Date / Time No Known Allergies Allergy Verified 11/13/23 13:34 [No Known Allergies*] Review of Systems Review of Systems: Yes all other systems are reviewed and are negative [facility] Past Medical History Medical History Hypercalcemia TAYLOR (acute kidney injury) Acute hyperglycemia HTN (hypertension) Aortic stenosis Arthritis of right knee Calcific tendinitis of left shoulder Orthostasis (~2014) Diabetes mellitus (~2014) Knee effusion (~11/15/14) Hyperlipidemia (~2012) Hypothyroidism (~2012) Surgical History S/P TAVR (transcatheter aortic valve replacement) S/P wrist surgery History of cardiac cath Family History Family History Father No problems noted. 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) Alcohol intake: never Patient Tobacco Use Status: Former Tobacco user Tobacco use type: Pipe Years Smoked: 10 Smoked in Last 30 Days: No Use of substances other than those prescribed or required for medical reasons: No Advance Directives: Yes Advance Directives on File: Yes Advance Directives Date on File: 11/24/22 Do you have a plan to hurt others: No Plan service: Yes Current occupational status: retired Current occupation: Right Handed Physical Exam ED Vital Signs: Vital Signs - 24 hr 11/13/23 13:34 11/13/23 17:51 11/13/23 19:03 Temperature 98.3 F 97.7 F Pulse Rate 70 105 H 83 Respiratory Rate 16 17 Blood Pressure 140/96 H 172/105 H Pulse Oximetry 97 96 Oxygen Delivery Method Room Air Room Air 11/13/23 19:04 11/13/23 19:06 Temperature Pulse Rate 99 110 H Respiratory Rate Blood Pressure 160/101 H 155/90 H Pulse Oximetry Oxygen Delivery Method BMI result Body Mass Index 22.5 Appearance: Alert. Oriented X3. No acute distress. Eyes: PERRLA, No Nystagmus ecchymosis around the eyes small hematoma on right eyebrow medial aspect abrasion on the nose ENT: Pharynx normal. Oral Mucosa moist Neck: Normal inspection. Neck supple. CVS: Irregularly irregular heart rate soft systolic murmur at base Pulses normal. Respiratory: No respiratory distress. Equal air entry bilateral, no wheezing/rales/rhonchi Abdomen: Soft and nontender. Bowel sounds are present, no mass palpable, no CVA tenderness Skin: Skin warm and dry. Normal skin color. Normal skin turgor. Extremities: No lower extremity edema. No calf tenderness abrasion right knee Neuro: Oriented X 3. No motor deficit. No sensory deficit.No cerebellar signs , cranial nerves II-XII intact Course Course Course Narrative: This is a Rapid Medical Examination (RME) performed by Good Harrison PA-C in triage. Full HPI, ROS, assessment and treatment plan per primary provider in the Main ED. 88 yo male hc of atrial flutter on Eliquis, HTN, DM s/p fall on Sunday (3 days ago). does not recall how he fell. states i just went down . his who was walking behind him at the time states that he did not trip. he just fell forward and landed on his face. reports continued bruising to face and abrasions to right knee. denies pain at present. admits to multiple falls over the last 6 months. seen at this morning for this, sent here for imaging. large hematoma noted to left forehead. multiple areas of ecchymosis to face. EOMs intact without entrapment. PERRLA. ambulating with steady gait. lungs cta b/l. Plan: labs, ekg, trop, imaging Medical Decision Making Lab Data [facility] Lab Attestation statement: I reviewed the patient's lab results. 11/13/23 13:49 06/04/24 13:49 Labs: Lab Results 11/13/23 Range/Units 13:49 WBC 9.5 (4.8-10.8) X10*3/uL RBC 3.85 L (4.60-5.80) X10*6/uL Hgb 12.9 L (14.0-18.0) g/dl Hct 38.4 L (42.0-52.0) % MCV 99.7 H (80.0-98.0) fL MCH 33.5 H (27.0-33.0) pg MCHC 33.6 (31.0-36.0) g/dl RDW 16.1 H (11.0-16.0) % Plt Count 166 D (160-400) X10*3/uL MPV 9.8 (9.4-12.4) fL Immature Gran % (Auto) 0.4 (0.0-0.4) % Neut % (Auto) 55.6 (45-73) % Lymph % (Auto) 32.7 (20-40) % [place] % (Auto) 8.8 (2-11) % Eos % (Auto) 1.9 (0-4) % Baso % (Auto) 0.6 (0-2) % Lymph # (Auto) 3.1 (1.2-4.9) X10*3/uL [place] # (Auto) 0.8 (0.1-1.2) X10*3/uL Eos # (Auto) 0.2 (0.0-0.4) X10*3/uL Baso # (Auto) 0.1 (0.0-0.2) X10*3/uL Abs Immat Gran (auto) 0.04 H (0.00-0.03) X10*3/uL Absolute Neuts (auto) 5.3 (2.0-8.3) x10*3/uL Absolute Nucleated RBC 0.000 (0.0-0.012) X10*3/uL Nucleated RBC % (auto) 0.0 (0.0-0.2) /100WBC Sodium 142 (135-145) mmol/L Potassium 4.1 (3.3-5.1) mmol/L Chloride 104 (96-108) mmol/L Carbon Dioxide 26 (22-29) mmol/L Anion Gap 16 (12-20) BUN 30 H (9-16) mg/dL Creatinine 1.29 (0.5-1.4) mg/dL Estim Creat Clear Calc 39.8 Estimated GFR 53 Random Glucose 61 (60-115) mg/dL Calcium 10.3 H (8.4-10.2) mg/dL Magnesium 1.6 (1.6-2.6) mg/dL Total Bilirubin 0.9 (0.0-1.0) mg/dL AST 26 (5-37) U/L ALT 21 (0-40) U/L Alkaline Phosphatase 117 (39-117) U/L Troponin I High Sens 9.3 (<3.5-35.0) ng/L Total Protein 7.5 (6.5-8.0) g/dL Albumin 4.3 (3.5-5.0) g/dL Lipase 30 (8-78) U/L Independent Interpretation I performed an independent interpretation of an: CT Scan Radiology Impression Discussion of test interpretation with radiology: I have reviewed the radiologist's reading. Discharge Plan Discharge Clinical Impression: Closed fracture nasal bone, Fall Patient Disposition: Home, Self-Care Instructions: Nasal Fracture (ED), Fall Prevention for Older Adults (ED) Additional Instructions: Care and cautions as advised Follow with your personal computer network analyst and neurologist as scheduled Report to the ER if passing out episode Prescriptions: No Action ascorbic acid (vitamin C) [Vitamin C] 1,000 mg Tablet 500 mg PO BEDTIME ferrous sulfate [FeroSul] 325 mg (65 mg iron) tablet 325 mg PO DAILY coenzyme Q10 [CoQ-10] 100 mg Capsule 200 mg PO BEDTIME cholecalciferol (vitamin D3) [Vitamin D3] 50 mcg (2,000 unit) Tablet 50 mcg PO BEDTIME omega 8-msi-qfs-fish oil [Fish Oil] 1,000 mg (120 mg-180 mg) Capsule 1 cap PO DAILY [facility] 750 mg-100 mg- 1.65 mg-108 mg Tablet 2 tab PO BID glipizide 5 mg Tablet 5 mg PO BIDWM Qty: 60 0RF atorvastatin 80 mg tablet 80 mg PO BEDTIME tamsulosin 0.4 mg capsule 0.4 mg PO BEDTIME metformin 500 mg tablet 1,000 mg PO BID furosemide 40 mg tablet 40 mg PO DAILY metoprolol succinate 25 mg tablet extended release 24 hr 25 mg PO BEDTIME levothyroxine 125 mcg tablet 125 mcg PO DAILY@0600 (DME) FreeStyle Lite Strips Strip See Rx Instructions .ROUTE DAILY Qty: 10 Rx Instructions: As directed diltiazem HCl 180 mg capsule,ext.rel 24h degradable 180 mg PO BEDTIME Eliquis 5 mg tablet 5 mg PO BID Print Language: Swiss
[2023-11-13 13:34] VITALS: BP 140/96; PULSE 70; RESP 16; TEMP 36.8; O2SAT 97; BMI 22.5
--- NOTE | 2023-11-13 13:37 | ECG_ITS ---
Test Reason : triage Blood Pressure : / mmHG Vent. Rate : 065 BPM Atrial Rate : 260 BPM P-R Int : 000 ms QRS Dur : 110 ms QT Int : 420 ms P-R-T Axes : 150 -52 031 degrees QTc Int : 436 ms Atrial flutter with 4:1 A-V conduction Left axis deviation Minimal voltage criteria for LVH, may be normal variant ( Erick product ) Cannot rule out Anterior infarct , age undetermined Abnormal ECG When compared with ECG of 11-JUN-2019 08:57, Atrial flutter has replaced Sinus rhythm Referred By: Vida Harrison Electronically Signed By:WINTER PACE MD
[2023-11-13 13:55] LABS: MANUAL DIFF FLAG NO
[2023-11-13 14:02] LABS: Basophils Absolute Auto 0.1 X10*3/uL (0.0-0.2); Basophils Percent Auto 0.6 % (0-2); Eosinophils Absolute Auto 0.2 X10*3/uL (0.0-0.4); Eosinophils Percent Auto 1.9 % (0-4); Hematocrit 38.4 % (42.0-52.0); Hemoglobin 12.9 g/dl (14.0-18.0); Imm Gran Abs Auto 0.04 X10*3/uL (0.00-0.03); Imm Gran Pct Auto 0.4 % (0.0-0.4); Lymphocytes Absolute Auto 3.1 X10*3/uL (1.2-4.9); Lymphocytes Percent Auto 32.7 % (20-40); Mean Corpuscular HGB Conc 33.6 g/dl (31.0-36.0); Mean Corpuscular Hemoglobin 33.5 pg (27.0-33.0); Mean Corpuscular Volume 99.7 fL (80.0-98.0); Mean Platelet Volume 9.8 fL (9.4-12.4); Monocytes Absolute Auto 0.8 X10*3/uL (0.1-1.2); Monocytes Percent Auto 8.8 % (2-11); Neutrophils Absolute Auto 5.3 x10*3/uL (2.0-8.3); Neutrophils Percent Auto 55.6 % (45-73); Platelet Count 166 X10*3/uL (160-400); Red Blood Count 3.85 X10*6/uL (4.60-5.80); Red Cell Distribution Width 16.1 % (11.0-16.0); White Blood Count 9.5 X10*3/uL (4.8-10.8)
[2023-11-13 14:16] LABS: Alanine Aminotransferase 21 U/L (0-40); Albumin Level 4.3 g/dL (3.5-5.0); Alkaline Phosphatase 117 U/L (39-117); Anion Gap 16 (12-20); Aspartate Amino Transferase 26 U/L (5-37); Bilirubin Total 0.9 mg/dL (0.0-1.0); Blood Urea Nitrogen 30 mg/dL (9-16); Calcium 10.3 mg/dL (8.4-10.2); Carbon Dioxide 26 mmol/L (22-29); Chloride 104 mmol/L (96-108); Creatinine Clr Calc Pharmacy 39.8; Estimated Glomerular Filt Rate 53; Glucose Random 61 mg/dL (60-115); Lipase 30 U/L (8-78); Magnesium 1.6 mg/dL (1.6-2.6); Potassium 4.1 mmol/L (3.3-5.1); Sodium 142 mmol/L (135-145); Total Protein 7.5 g/dL (6.5-8.0)
[2023-11-13 14:20] LABS: Troponin-I High Sensitivity 9.3 ng/L (<3.5-35.0)
[2023-11-13 17:51] VITALS: BP 172/105; PULSE 105; RESP 17; TEMP 36.5; O2SAT 96
[2023-11-13 19:03] VITALS: PULSE 83
[2023-11-13 19:04] VITALS: BP 160/101; PULSE 99
[2023-11-13 19:06] VITALS: BP 155/90; PULSE 110
[2023-11-13 20:02] VITALS: BP 179/111; PULSE 70; RESP 18; O2SAT 96
== END 2023-11-13 20:50 | disposition home or self-care (01) ==
PROVIDERS: Physician Assistant Medical; Emergency Provider Internal Medicine; PCP Internal Medicine
DX: S02.2XXA Fracture of nasal bones, initial encounter for closed fracture (principal); S00.83XA Contusion of other part of head, initial encounter; I48.91 Unspecified atrial fibrillation; I10 Essential (primary) hypertension; E11.9 Type 2 diabetes mellitus without complications; Z95.2 Presence of prosthetic heart valve; Z79.01 Long term (current) use of anticoagulants; W18.30XA Fall on same level, unspecified, initial encounter; Y93.9 Activity, unspecified; Y92.9 Unspecified place or not applicable; Y99.9 Unspecified external cause status
CPT/HCPCS: 36415; 70450; 70486; 71046; 72125; 80053; 83690; 83735; 84484; 85025; 93005; 99284

== ENCOUNTER → 2023-11-13 13:37 | Outpatient (BNV) | payer MEDICARE, SELFPAY | PROVIDERS: Emergency Provider Internal Medicine; PCP Internal Medicine; Visit Provider Internal Medicine Cardiovascular Disease | DX: I48.92 Unspecified atrial flutter (principal) | CPT/HCPCS: 93010 ==

== ENCOUNTER → 2023-12-25 10:53 | Outpatient (REF) | payer MEDICARE, SELFPAY ==
--- NOTE | 2023-12-25 10:57 | HM_ITS ---
Conclusion: 1. Patient was monitored for total period of 2 days and 23 hours 2. Baseline was atrial fibrillation/flutter with average heart of 81 beats per minute with good rate control 3. No significant pauses noted 4. Patient did not report any symptoms MTDD
== END ==
LOC: HO.CARD 10:53
PROVIDERS: PCP Internal Medicine; Visit Provider Psychiatry & Neurology Neurology
DX: R55 Syncope and collapse (principal)
CPT/HCPCS: 93242

== ENCOUNTER → 2023-12-25 10:57 | Outpatient (BNV) | payer MEDICARE, SELFPAY | PROVIDERS: PCP Internal Medicine; Visit Provider Internal Medicine Cardiovascular Disease | DX: I48.91 Unspecified atrial fibrillation (principal) | CPT/HCPCS: 93244 ==

== ENCOUNTER → 2024-02-19 09:35 | Outpatient (REF) | payer MEDICARE, SELFPAY ==
--- NOTE | 2024-02-19 09:39 | CA_ITS ---
Transthoracic Echocardiogram Patient (Last, First, Middle): Richard Chávez W Gender: Male Date of : 1935 Age: 88 Procedure Date: 02/19/2024 Procedure Type: Transthoracic Echocardiogram Location: OP Height: 177.8 cm Weight: 69.85 kg BSA: 1.87 m2 Heart Rate: 44 bpm BP: 110 / 55 mmHg Electronic Calibration Technician: BERTHA Referring MD: Home Kendall MD Symptoms: Z95.2 - Presence of prosthetic heart valve Study Quality: Fair ECG Rhythm: Atrial flutter Conclusions: - The left ventricular systolic function is normal. The visually estimated ejection fraction is between 55-60%. - A bioprosthetic aortic valve is present. The prosthetic aortic valve appears to be functioning normally. - Mild pulmonary hypertension is present. Findings Left Ventricle Normal left ventricular cavity size. There is normal left ventricular wall thickness. The left ventricular systolic function is normal. The visually estimated ejection fraction is between 55-60%. There is no evidence of regional wall motion abnormalities. Diastolic function is indeterminate on the basis of available data. Right Ventricle Normal right ventricular cavity size. There is low normal right ventricular systolic function. Atria The left atrium is normal in size. The right atrium is moderately dilated. Aortic Valve A bioprosthetic aortic valve is present. The prosthetic aortic valve appears to be functioning normally. There is no aortic valve regurgitation. Mitral Valve The mitral valve appears normal. There is no mitral valve regurgitation. There is no mitral valve stenosis. Pulmonic Valve There is mild pulmonic valve regurgitation. Tricuspid Valve There is mild tricuspid valve regurgitation. Mild pulmonary hypertension is present. Great Vessels The asc aorta is normal in size. Venous The inferior vena cava is mildly dilated and collapses greater than 50% with inspiration. Pericardium/Pleural There is no evidence of pericardial effusion. Prior Study Comparison No significant change compared to prior study dated: 12/28/2022. Measurements 2D Linear Measurements IVSd: 0.94 0.6-0.9/0.6-1.0 cm LVIDd: 3.94 3.9-5.3/4.2-5.9 cm LVIDd Index: 2.11 2.4-3.2/2.2-3.1 cm/m2 LVIDs: 3.28 2.0-3.6 cm LVPWd: 1.21 0.7-1.1 cm LA Diam: 4.70 2.7-3.8/3.0-4.0 cm LAIDs Index: 2.51 1.5-2.3 cm/m2 LV Mass: 171.75 67-162/88-224 g LV Mass Index: 91.85 43-95/49-115 g/m2 LVOT Diam: 2.30 3.0+(-)1.3 cm 2D Systolic Function EF 4C: 50.50 >55% EF 2C: 57.40 >55% EF BiP: 53.90 >55% Mitral Valve MV Pk E: 1.30 MV PK A: 0.76 MV Decel Time: 127.00 E/A: 1.70 E'Lateral: 10.50 E'Medial: 7.77 E/E' Med: 16.70 E/E' Lat: 12.40 PHT: 37.00 MVA PHT: 5.95 Decel [place]: 10.24 Aortic Valve AoV Pk Gerry: 1.20 AoV Mn Gerry: 0.97 AoV VTI: 0.28 AoV Pk Grad: 6.00 Aov Mn Grad: 4.00 ADY Cont.VTI: 3.90 LVOT LVOT Pk Gerry: 1.18 LVOT Mn Gerry: 0.77 LVOT VTI: 0.27 LVOT Pk Grad: 6.00 LVOT Mn Grad: 3.00 LVOT Diam: 2.30 LVOT Area: 4.15 Diastolic Function MV Pk E: 1.30 MV Pk A: 0.76 E/A: 1.70 E'Medial: 7.77 E/E' Med: 16.70 E' Laterial: 10.50 E/E' Lat: 12.40 Right Ventricle TAPSE (mm): 18.20 TVS' Gerry: 10.15 Tricuspid Valve TR Pk Gerry: 3.04 TR Pk Grad: 37.00 RA Press: 8.00 RVSP: 45.00 Great Vessels Aorta Sinus of Valsalva: 3.10 2.0-3.5 cm Ao Asc: 3.70 2.1-3.4 cm Pulmonary Valve PV Pk Gerry: 0.84 Peak PV Grad: 3.00 Updated in Other Vendor System with Status of Final Prince Flores MD electronically signed on 02/20/2024 8:50:36 AM with status of Final
== END ==
LOC: HO.CARD 09:35
PROVIDERS: PCP Internal Medicine; Visit Provider Internal Medicine Cardiovascular Disease
DX: Z95.2 Presence of prosthetic heart valve (principal)
CPT/HCPCS: 93306

== ENCOUNTER → 2024-02-19 09:39 | Outpatient (BNV) | payer MEDICARE, SELFPAY | PROVIDERS: PCP Internal Medicine; Visit Provider Internal Medicine | DX: I36.1 Nonrheumatic tricuspid (valve) insufficiency (principal); I37.1 Nonrheumatic pulmonary valve insufficiency; Z95.3 Presence of xenogenic heart valve | CPT/HCPCS: 93306 ==

== ENCOUNTER 2024-02-28 13:20 | Outpatient (AMB) | payer MEDICARE, SELFPAY ==
[2024-02-28 13:29] VITALS: BP 110/74; PULSE 62; BMI 22.8
--- NOTE | 2024-02-28 13:29 | MHC.OFFVIS ---
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 Accompanied by: Spouse Allergies No Known Allergies [No Known Allergies*] Allergy (Verified 11/13/23 13:34) Medication List - Last Reconciled 02/28/24 by Home Kendall MD apixaban (Eliquis) 5 mg PO BID ascorbic acid (vitamin C) (Vitamin C) 500 mg PO BEDTIME atorvastatin 80 mg PO BEDTIME blood sugar diagnostic (FreeStyle Lite Strips) As directed cholecalciferol (vitamin D3) (Vitamin D3) 50 mcg PO BEDTIME coenzyme Q10 (CoQ-10) 200 mg PO BEDTIME diltiazem HCl ER 90 mg PO DAILY ferrous sulfate (FeroSul) 325 mg PO DAILY furosemide 40 mg PO DAILY glipizide 5 mg PO BIDWM snjcmgnf-nnxvk-sptvs-CF borate 750 mg-100 mg- 1.65 mg-108 mg ([facility] [employer]) 2 tabs PO BID levothyroxine 125 mcg PO DAILY@0600 metformin 1,000 mg PO BID metoprolol succinate ER 25 mg PO BEDTIME omega 5-uza-ypm-fish oil 1,000 mg (120 mg-180 mg) (Fish Oil) 1 cap PO DAILY tamsulosin 0.4 mg PO BEDTIME HPI Comments Details: Richard comes for follow-up. He has been doing very well from cardiac perspective. Recent echocardiogram shows normal LV ejection fraction with normally function bioprosthetic aortic valve. Denies any cardiac symptoms. No worsening shortness of breath, orthopnea, PND. Denies any chest pain. Denies any prolonged palpitation irregular heartbeat. No lightheadedness, syncope. No recent falls. Takes all his medications. No bleeding issues or neurologic events [facility] Medical History Hypercalcemia TAYLOR (acute kidney injury) Acute hyperglycemia HTN (hypertension) Aortic stenosis Arthritis of right knee Calcific tendinitis of left shoulder Orthostasis (~2014) Diabetes mellitus (~2014) Knee effusion (~11/15/14) Hyperlipidemia (~2012) Hypothyroidism (~2012) Surgical History S/P TAVR (transcatheter aortic valve replacement) S/P wrist surgery History of cardiac cath Family History Father No problems noted. 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) Alcohol intake: never Patient Tobacco Use Status: Former Tobacco user Tobacco use type: Pipe Years Smoked: 10 Advance Directives Date on File: 11/24/22 service: Yes Current occupational status: retired Current occupation: Right Handed Review of Systems Const Denies chills, Denies fatigue, Denies fever(s), Denies frequent falls, Denies weakness, Denies weight gain and Denies weight loss ENT Denies dizziness Card Denies chest pain, Denies leg edema, Denies lightheadedness, Denies palpitations, Denies dyspnea, Denies dyspnea on exertion, Denies orthopnea and Denies other (loss of consciousness) Resp Denies cough, Denies dyspnea and Denies dyspnea on exertion GI Denies hematochezia and Denies change in stool character Musc Denies abnormal gait, Denies muscle weakness, Denies numbness, Denies radiating pain into limb and Denies tingling Neuro Denies Abnormal speech present, Denies abnormal gait, Denies dizziness, Denies frequent falls, Denies numbness, Denies tingling and Denies weakness Endo Denies fatigue and Denies palpitations Physical Exam Vital Signs: Last Vital Signs Pulse 62 02/28/24 13:29 BP 110/74 02/28/24 13:29 BMI result Body Mass Index 22.8 Const General: cooperative, comfortable, no acute distress, alert, awake and Physically active Nutritional Appearance: average body habitus Orientation/consciousness: patient oriented x3 Limitations: no limitations Neck Neck: Yes trachea midline, Yes supple and Yes no JVD Carotids: delayed carotid upstroke Chest Chest palpation & inspection: normal inspection of the chest Resp Effort & Inspection: normal respiratory effort Cardio Jugular venous distension: no JVD Rhythm: abnormal rhythm irregularly irregular Heart sounds: S1 normal heart sound present, S2 normal heart sound present, no click, no gallops and Murmur heart sound present systolic early GI Auscultation: normal bowel sounds Skin General skin exam: no rashes or lesions noted Neuro General: patient oriented x3 and no focal motor deficits Speech: No Abnormal speech present Extrem General: Yes no clubbing, cyanosis or edema Psych Appearance: grossly normal Office Procedures EKG Details: EKG shows atrial flutter with 4 is to 1 conduction [place] [id number], Complete Assessment & Plan Assessment & Plan (1) S/P TAVR (transcatheter aortic valve replacement): Code(s): Z95.2 - Presence of prosthetic heart valve Category: Surgical Plan: Status post transcatheter aortic valve replacement for severe aortic stenosis. Doing very well clinically. No signs or symptoms of heart failure. Continue full oral anticoagulation with Eliquis. SBE prophylaxis as per ACC/aha guidelines. Continue aggressive risk factor modification. (2) Atrial flutter: Code(s): I48.92 - Unspecified atrial flutter Category: Medical Plan: Chronic atrial flutter, currently rate controlled. Doing well with rate control approach. Longstanding atrial flutter and has had no issues with it. No signs or symptoms of heart failure. Clinically doing well. Continue full oral anticoagulation, currently on Eliquis 5 mg b.i.d.. Semi annual renal function test should be pursued. Will follow up in the clinic in 1 year's time after an echocardiogram. Thank you for allowing me to partake in his care Orders: Orders CA echo transthoracic complete 1 Year Z95.2 - Presence of prosthetic heart valve Coding Level of Care Code Est Pt Level 4 (48972) Diagnoses S/P TAVR (transcatheter aortic valve replacement) Z95.2 Atrial flutter I48.92 CPT Codes EKG - CPT: 32460-[id number], Complete ([id number])
== END 2024-02-28 13:55 | disposition home or self-care (01) ==
PROVIDERS: PCP Internal Medicine; Visit Provider Internal Medicine Cardiovascular Disease
DX: Z95.2 Presence of prosthetic heart valve (principal); I48.92 Unspecified atrial flutter
CPT/HCPCS: 93010; 99214

== ENCOUNTER → 2024-02-28 13:20 | Outpatient (BNVA) | payer MEDICARE, SELFPAY | PROVIDERS: PCP Internal Medicine; Visit Provider Internal Medicine Cardiovascular Disease | DX: I48.92 Unspecified atrial flutter (principal); Z95.2 Presence of prosthetic heart valve; R94.31 Abnormal electrocardiogram [ECG] [EKG]; I45.4 Nonspecific intraventricular block | CPT/HCPCS: 93005; 99212 ==

== ENCOUNTER 2024-06-20 12:13 | Outpatient (REF) | payer MEDICARE, SELFPAY ==
[2024-06-20 12:19] LABS: MANUAL DIFF FLAG NO
[2024-06-20 12:30] LABS: Basophils Percent Auto 0.5 % (0-2); Eosinophils Absolute Auto 0.2 X10*3/uL (0.0-0.4); Eosinophils Percent Auto 2.2 % (0-4); Hematocrit 41.3 % (42.0-52.0); Hemoglobin 13.9 g/dl (14.0-18.0); Imm Gran Abs Auto 0.02 X10*3/uL (0.00-0.03); Imm Gran Pct Auto 0.3 % (0.0-0.4); Lymphocytes Absolute Auto 3.2 X10*3/uL (1.2-4.9); Mean Corpuscular HGB Conc 33.7 g/dl (31.0-36.0); Mean Corpuscular Hemoglobin 33.5 pg (27.0-33.0); Mean Corpuscular Volume 99.5 fL (80.0-98.0); Monocytes Absolute Auto 0.8 X10*3/uL (0.1-1.2); Monocytes Percent Auto 10.2 % (2-11); Neutrophils Absolute Auto 3.6 x10*3/uL (2.0-8.3); Neutrophils Percent Auto 45.8 % (45-73); Platelet Count 145 X10*3/uL (160-400); Red Blood Count 4.15 X10*6/uL (4.60-5.80); Red Cell Distribution Width 14.2 % (11.0-16.0); White Blood Count 7.8 X10*3/uL (4.8-10.8)
[2024-06-20 12:31] LABS: Estimated Average Glucose 163 mg/dL; Hemoglobin A1c % 7.3 % (<6.0); Total Hemoglobin (HGBA1C) 3655.9637 umol/L
[2024-06-20 12:40] LABS: Appearance Urine Clear; Color Urine Yellow; Glucose Urine UA Negative (Negative); Leukocyte Esterase Urine Negative (Negative); Nitrite Urine Negative (Negative); PH 5.5 (5.0-9.0); Urine Blood Negative (Negative); Urine Ketones Negative (Negative); Urine Protein Trace mg/dL (Neg-Trace)
[2024-06-20 12:43] LABS: Bacteria Urine None Seen (None Seen); Hyaline Casts Urine 0-2 /LPF (0-2); RBC Urine 0-2 /HPF (0-2); Squamous Epithelial Cell Urine 0-2 /HPF (0-2); WBC Urine 0-5 /HPF (0-5)
[2024-06-20 12:51] LABS: Creatinine Urine 93.86 mg/dL; Microalbum/Creatinine Ratio Ur 113.9 ug/mg cr (<30)
[2024-06-20 12:53] LABS: PSA,Total (Free>4and<10) 0.38 ng/mL (0.00-4.00)
[2024-06-20 12:57] LABS: Alanine Aminotransferase 31 U/L (0-40); Albumin Level 4.2 g/dL (3.5-5.0); Alkaline Phosphatase 93 U/L (39-117); Anion Gap 12 (12-20); Aspartate Amino Transferase 36 U/L (5-37); Bilirubin Total 0.6 mg/dL (0.0-1.0); Blood Urea Nitrogen 45 mg/dL (9-16); Calcium 9.4 mg/dL (8.4-10.2); Carbon Dioxide 25 mmol/L (22-29); Chloride 109 mmol/L (96-108); Cholesterol 143 mg/dL (<200); Estimated Glomerular Filt Rate 40; Glucose Fasting 174 mg/dL (60-99); HDL Cholesterol 43 mg/dL (>40); LDL Cholesterol Calculated 77 mg/dL (<100); Potassium 4.3 mmol/L (3.3-5.1); Sodium 142 mmol/L (135-145); Total Protein 7.3 g/dL (6.5-8.0); Triglycerides 117 mg/dL (<150)
== END 2024-06-20 12:14 | disposition home or self-care (01) ==
LOC: HO.LNP 12:13
PROVIDERS: Visit Provider Internal Medicine
DX: E03.9 Hypothyroidism, unspecified (principal); E11.9 Type 2 diabetes mellitus without complications; N40.0 Benign prostatic hyperplasia without lower urinary tract symptoms; I10 Essential (primary) hypertension; E78.00 Pure hypercholesterolemia, unspecified; D72.820 Lymphocytosis (symptomatic); Z12.5 Encounter for screening for malignant neoplasm of prostate
CPT/HCPCS: 80053; 80061; 81001; 82043; 82570; 83036; 84153; 85025

== ENCOUNTER 2024-07-24 10:17 | Outpatient (REF) | payer MEDICARE, SELFPAY ==
[2024-07-24 10:38] LABS: Blood Urea Nitrogen 38 mg/dL (9-16); Estimated Glomerular Filt Rate 53
--- OUTSIDE RECORDS SUMMARY | 2024-07-24 11:01 | XMS_ITS | Patient Health Record ---
Author Organization [facility] Address [address] [place] [address] Care Team Providers Care Refractory Bricklayer Name Role Phone Orestes Alex MD Primary Care Provider Yakelin Hernández, Xenia Unavailable [phone] Allergies Allergen (clinical drug ingredient) Drug/Non Drug Allergy documented on EMR Reaction Allergy Type Onset Date Status Bee Sting Swell up Allergy Active Results Component Value Reference Range Notes HEMOGLOBIN A1C (GLYCOHEMOGLO BIN) Reviewed date:02/14/2024 02:52:25 PM Interpretation: Performing Lab: Notes/Report: TOTAL HEMOGLOBIN (HGBA1C) 6.4 HEMOGLOBIN A1C (GLYCOHEMOGLO BIN) Reviewed date:06/20/2024 07:49:16 PM Interpretation: Performing Lab: Notes/Report: HEMOGLOBIN A1C % (HH) 6.4 Reason For Referral No Information Medications Medication SIG (Take, Route, Frequency, Duration) Notes Start Date End Date Status CoQ-10 200 MG 1 capsule with a lisa l Orally Once a day for 30 day(s) Active Vitamin D 2000 UNIT as directed Orally Not-Taking Tamsulosin HCl 0.4 MG 1 capsule Orally 3 0mins after supper Active Farxiga 5 MG Orally Once a day Not-Taking Vitamin C Active Itraconazole 1/1% Orally No t-Taking Glimepiride 1 MG 1 tablet with breakf ast or the first main meal of the day Orally Once a day Active Pneumovax 23 25 MCG/0.5ML 0.5 ml one barbara e Injection Once a day for 1 day(s) Not-Taking Januvia 50 MG Orally Once a day Not-Taking Fish Oil 1000 MG 1 capsule Orally Onc e a day for 30 day(s) Active Ciclopirox Olamine 0.77 % 1 application to affected area Externally Twice a day for 30 days 02/28/2018 Not-Taking metFORMIN HCl 500mg 1 tablet with meals Orally Twice a day for 30 day(s) Active Centrum Silver as directed Orally Not-Taking Atorvastatin Calcium 80mg 1 tablet Orall y Once a day for 30 day(s) Active SITagliptin Active Calcium 600mg as directed Orally Not-Taking Tetanus Immune Globulin 250 UNIT/ML as directed Intramuscular Not-Taking eliquis 5 mg Active zzzCompression Stockings 20-30mm Hg . . . for . Not-Taking Colcrys 0.6 MG 1 tablet Orally Once a day for 10 days 02/26/2013 Not-Taking Vitamin D3 50 MCG (2000 UT) 1 capsule Orally Once a day for 30 day(s) Active Valsartan 320 MG 1 tablet Orally Once a day Not-Taking Levothyroxine Sodium 125 MCG 1 tablet on an empty stomach in the morning Orally Once a day Active Aspirin 81 MG 1 tablet Orally Once a day for 30 day(s) Not-Taking Immunizations Vaccine Route Administration Date Status Comme nts COVID-19 Pfizer BioNTech Vaccine Unknown 02/21/2021 Administered 1st 07/13/20 2nd Dose: 08/06/20 Influenza Unknown 02/26/2017 Administered Influenza Unknown 02/09/2018 Administered Influenza Unknown 02/10/2019 Administered Influenza Unknown 02/10/2020 Administered Influenza Unknown 03/07/2021 Administered Influenza Unknown 01/09/2022 Administered Influenza Unknown 01/09/2023 Administered Social History Tobacco Use: Social History Observation Description Date Details (start date - stop date) Former Smoker NA - NA Tobacco Use/Smoking Question Answer Notes Are you a: former smoker Additional Findings: Tobacco Non-User Current no n-smoker Alcohol Screen Question Answer Notes Did you have a drink containing alcohol in the p ast year? No Points 0 Interpretation Negative Tobacco use other than smoking: Question Answer Notes Are you an other tobacco user? 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) Active confirmed Problem Acquired deformity of left foot (027060976256098 04) PlantarFlexion of metatarsal of left foot (M21.6X2) Active confirmed Vital Signs Blood pressure diastolic 67 mm Hg 05/26/2024 Height 5 ft 10 in in 05/26/2024 Blood pressure systolic 157 mm Hg 05/26/2024 Weight 155 lbs 05/26/2024 BMI 22.24 kg/m2 05/26/2024 Procedures Procedure Date Ordered Date Performed Result Body Sit e 64898-PVXDVRY NAIL, 6 OR MORE 10/25/2023 N/A 42756-Oizgfaxf Plate 10/25/2023 N/A 50938-YIIVIBL NAIL, 6 OR MORE 02/14/2024 N/A 19588-GGQNNIE NAIL, 6 OR MORE 05/26/2024 N/A 07180-Yjheguvm Plate 05/26/2024 N/A 69574-Qktqiyjt Plate Each Additional 05/26/2024 N/A Encounters Encounter Location Date Provider Diagnosis [address] [address] 10/25/2023 Xenia Black Tinea unguium B35.1 ; Ingrown nail L60.0 ; Type 2 diabetes mellitus without complications E11.9 ; Pain in right toe(s) M79.674 and Pain in left toe(s) M79.[address] [address] 02/14/2024 Xenia Black Tinea unguium B35.1 ; Type 2 diabetes mellitus without complications E11.9 ; Pain in right toe(s) M79.674 and Pain in left toe(s) M79.[address] [address] 05/26/2024 Xenia Black Tinea unguium B35.1 ; Ingrown nail L60.0 ; Type 2 diabetes mellitus without complications E11.9 ; Pain in right toe(s) M79.674 and Pain in left toe(s) M79.675 [facility] [address] [address] 02/14/2024 Xenia Hernández Assessments Encounter Date Diagnosis (ICD Code) Assessment Notes Treatment Notes Treatment Clinical Notes Section Notes 10/25/2023 Tinea unguium (ICD-10 - B35.1) 02/14/2024 Tinea unguium (ICD-10 - B35.1) 02/14/2024 Type 2 diabetes mellitus without complications (ICD-10 - E11.9) 05/26/2024 Tinea unguium (ICD-10 - B35.1) 05/26/2024 Ingrown nail (ICD-10 - L60.0) 10/25/2023 Ingrown nail (ICD-10 - L60.0) 05/26/2024 Type 2 diabetes mellitus without complications (ICD-10 - E11.9) 02/14/2024 Pain in right toe(s) (ICD-10 - M79.674) 10/25/2023 Type 2 diabetes mellitus without complications (ICD-10 - E11.9) 02/14/2024 Pain in left toe(s) (ICD-10 - M79.675) 05/26/2024 Pain in right toe(s) (ICD-10 - M79.674) 05/26/2024 Pain in left toe(s) (ICD-10 - M79.675) 10/25/2023 Pain in right toe(s) (ICD-10 - M79.674) 10/25/2023 Pain in left toe(s) (ICD-10 - M79.675) Plan Of Treatment Pending Test Test Name Order Date *Uric Acid, Serum 02/26/2013 *Sedimentation Rate-Westergren 3 X ray : Foot, right 3V 02/26/2013 69161-EYEHBAO NAIL, 6 OR MORE 04/30/2017 78267-EQYGHKC NAIL, 6 OR MORE 06/18/2017 00009-EKMCMGZ NAIL, 6 OR MORE 02/28/2018 04047-RTSIUWV NAIL, 6 OR MORE 05/27/2018 71771-MGFGOMY NAIL, 6 OR MORE 08/26/2018 20545-ZDYCKTT NAIL, 6 OR MORE 11/14/2018 87126-BHMNAMN NAIL, 6 OR MORE 02/13/2019 10067-ANJWBYJ NAIL, 6 OR MORE 05/19/2019 80139-CYNTUCC NAIL, 6 OR MORE 10/16/2019 30702-DYINEJA NAIL, 6 OR MORE 01/22/2020 52224-BQQWUOT NAIL, 6 OR MORE 04/26/2020 39315-VMIGQEP NAIL, 6 OR MORE 08/02/2020 17104-UBORFBU NAIL, 6 OR MORE 10/28/2020 71322-SRPUPJC NAIL, 6 OR MORE 01/27/2021 31520-AZOCXKV NAIL, 6 OR MORE 05/09/2021 76932-YGNXPSE NAIL, 6 OR MORE 08/25/2021 96000-AWVAMWI NAIL, 6 OR MORE 03/09/2022 39450-DSMGMVW NAIL, 6 OR MORE 06/22/2022 29295-FMEQTJG NAIL, 6 OR MORE 10/23/2022 62473-AEFBDIJ NAIL, 6 OR MORE 11/28/2021 08715-CJUZMDN NAIL, 6 OR MORE 02/22/2023 30713-HFGKWVX NAIL, 6 OR MORE 07/19/2023 02434-FAEVZCA NAIL, 6 OR MORE 10/25/2023 53602-XCQJWMP NAIL, 6 OR MORE 02/14/2024 11935-BIEIXRM NAIL, 6 OR MORE 05/26/2024 06349-Zyrxslel Plate 05/26/2024 76702-Mjgwqkeo Plate 10/25/2023 29699-Wmlaqmcm Plate 07/19/2023 17644-Iixpiqdg Plate 02/22/2023 13639-Eyhllrqp Plate 11/28/2021 94711-Abzaekvd Plate 08/25/2021 76222-Qrvtgreq Plate 10/28/2020 50032-Clngtnjp Plate Each Additional 77762 I&D ABSCESS- SIMPLE,SINGLE 022 23917 I&D ABSCESS- SIMPLE,SINGLE 021 83743 I&D ABSCESS- SIMPLE,SINGLE 021 06249-Zhxy. Subungual Hematoma 9 Nail Panel 04/30/2017 Next Appt Details Provider Name:Xenia Hernández , 09/01/2024 01:00:00 PM, [address] [place], [address], Insurance Providers Payer Name Payer Address Payer Phone Subscriber Number Group Number Insured Name Patient Relationship to Insured Coverage Start Date Coverage End Date Medicare National Govt [facility] [address] [place] [address] [id number] Richard Chávez Self - patient is the insured 1 [employer] [address] [place] [address] [phone] [id number] Richard Chávez Self - patient is the insured Medical (General) History Medical History History ICD Code thyroid disorder chicken pox measles mumps joint implants/screws Warts Back,Hip,and Knee pain Cataracts Diabetic Gout Surgical History Surgery Date(Month/Year) finger surgery 2009 Thumb Surgery 2012 nose L side 2016 biopsy on face spot 10/25/20 aortic valve replacement 01/2022
--- OUTSIDE RECORDS SUMMARY | 2024-07-24 11:01 | XMS_ITS ---
Author Organization [facility] Address [address] [facility] [place] [address] Care Team Providers Care Broke Man Name Role Phone Isai DAVILA, Orestes Primary Care Provider Xenia Rojas Unavailable [phone] Allergies Allergen (clinical drug ingredient) Drug/Non Drug Allergy documented on EMR Reaction Allergy Type Onset Date Status Bee Sting Swell up Allergy Active REASON FOR VISIT At Risk Footcare, Painful nail(s) aggrevated by shoes and causing difficulty standing/walking. Medications Medication SIG (Take, Route, Frequency, Duration) Notes Start Date End Date Status Farxiga 5 MG Orally Once a day Not-Taking Vitamin D 2000 UNIT as directed Orally Not-Taking Itraconazole 1/1% Orally No t-Taking Tetanus Immune Globulin 250 UNIT/ML as directed Intramuscular Not-Taking Pneumovax 23 25 MCG/0.5ML 0.5 ml one barbara e Injection Once a day for 1 day(s) Not-Taking Ciclopirox Olamine 0.77 % 1 application to affected area Externally Twice a day for 30 days 02/28/2018 Not-Taking Aspirin 81 MG 1 tablet Orally Once a day for 30 day(s) Not-Taking Valsartan 320 MG 1 tablet Orally Once a day Not-Taking Januvia 50 MG Orally Once a day Not-Taking Centrum Silver as directed Orally Not-Taking zzzCompression Stockings 20-30mm Hg . . . for . Not-Taking Tamsulosin HCl 0.4 MG 1 capsule Orally 3 0mins after supper Active Glimepiride 1 MG 1 tablet with breakf ast or the first main meal of the day Orally Once a day Active Vitamin C Active Calcium 600mg as directed Orally Not-Taking Fish Oil 1000 MG 1 capsule Orally Onc e a day for 30 day(s) Active Levothyroxine Sodium 125 MCG 1 tablet on an empty stomach in the morning Orally Once a day Active CoQ-10 200 MG 1 capsule with a lisa l Orally Once a day for 30 day(s) Active Atorvastatin Calcium 80mg 1 tablet Orall y Once a day for 30 day(s) Active metFORMIN HCl 500mg 1 tablet with meals Orally Twice a day for 30 day(s) Active Vitamin D3 50 MCG (2000 UT) 1 capsule Orally Once a day for 30 day(s) Active eliquis 5 mg Active Colcrys 0.6 MG 1 tablet Orally Once a day for 10 days 02/26/2013 Not-Taking SITagliptin Active Social History Tobacco Use: Social History Observation Description Date Details (start date - stop date) Former Smoker NA - NA Tobacco Use/Smoking Question Answer Notes Are you a: former smoker Additional Findings: Tobacco Non-User Current no n-smoker Tobacco use other than smoking: Question Answer Notes Are you an other tobacco user? No Vital Signs Height 5 ft 10 in in 02/14/2024 Weight 154 lbs 02/14/2024 BMI 22.09 kg/m2 02/14/2024 Procedures Procedure Date Ordered Date Performed Result Body Sit e 93066-FUKRWKW NAIL, 6 OR MORE 02/14/2024 N/A Encounters Encounter Location Date Provider Diagnosis [facility] [place] [address] [place] [address] 02/14/2024 Xenia Black Tinea unguium B35.1 ; Type 2 diabetes mellitus without complications E11.9 ; Pain in right toe(s) M79.674 and Pain in left toe(s) M79.675 Assessments Encounter Date Diagnosis (ICD Code) Assessment Notes Treatment Notes Treatment Clinical Notes Section Notes 02/14/2024 Tinea unguium (ICD-10 - B35.1) 02/14/2024 Type 2 diabetes mellitus without complications (ICD-10 - E11.9) 02/14/2024 Pain in right toe(s) (ICD-10 - M79.674) 02/14/2024 Pain in left toe(s) (ICD-10 - M79.675) Plan Of Treatment Pending Test Test Name Order Date 21298-AOHVKHV NAIL, 6 OR MORE 02/14/2024 Next Appt Details Follow Up: prn, Reason: Provider Name:Xenia Hernández , 09/01/2024 01:00:00 PM, [address] [place], [address], Procedure Notes * Category Sub-Category Detail Notes Debride Nail 6-10 Nail debridement Performance o f this nail treatment by a nonprofessional would put this patients foot and overall health at risk. Therefore, nail debridement was performed extensively to reduce/remove overall nail length, girth, thickness, subungual debris, and necrotic tissue, by manual and/or electrical means through the use of a nail nipper and/or dremel-type cylinder grinder, to a more viable healthy nail plate or bed tissue 6-10. Silver nitrate used for any petechial bleeding as necessary. Definitive antifungal treatment options have been reviewed and discussed with the patient. The patient chooses, no pharmaceutical tx - 67706 Progress Notes * Richard CAT WDOB:1935 (88 yo M)Acc No.[id number]:02/14/2024 Progress Note Patient:?Richard Cat W Provider:?Xenia HernándezGETACHEW :1935???Age:88 Y???Sex:Male Wayne e:02/14/2024 Address:[address] [place] [address] , [facility] [place], [id number] Pcp:Orestes Alex MD Subjective: * Chief Complaints: * ???At Risk Footcare Painful nail(s) aggrevated by shoes and causing difficulty standing/walking. * HPI: ???At Risk footcare:?Pt States Last PCP Visit:?Date?01/28/2024 ???Painful Nails:?Pt States Last PCP Visit:?Date:?01/28/2024 ?Course:?unchanged.?Treatments:?Formula 7, Topical Antifungal.? * Medical History:? * Surgical History:?finger chelly kassandra 2010Thumb Surgery 2013nose L side 2016biopsy on face spot 10/25/20aortic valve replacement 01/2022 * Hospitalization/Major Diagno stic Procedure:?Denies Past Hospitalization * Family History:?Mother: dece ased, cancer, diagnosed with Other malignant neoplasm of unspecified site.?Father: , foot problems, heart attack.? * Social History:?Tobacco Use:?Tobacco Use/Smoking?Are you a:?former smoker ?Additional Findings: Tobacco Non-User?Current non-smoker ?Tobacco use other than smoking?Are you an other tobacco user??No ???Miscellaneous:?Caffeine: yes, 1-2 cups per day. ?Children: yes. ?Exercise: yes, walking. ?Marital status: . 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 * Medications:?TakingSITaglipt in eliquis 5 mg Tablet Vitamin D3 50 MCG (2000 UT) Capsule 1 capsule Orally Once a dayLevothyroxine Sodium 125 MCG Tablet 1 tablet on an empty stomach in the morning Orally Once a dayFish Oil 1000 MG Capsule 1 capsule Orally Once a daymetFORMIN HCl 500mg Tablet 1 tablet with meals Orally Twice a dayAtorvastatin Calcium 80mg Tablet 1 tablet Orally Once a dayCoQ-10 200 MG Capsule 1 capsule with a meal Orally Once a dayTamsulosin HCl 0.4 MG Capsule 1 capsule Orally 30mins after supperVitamin C Glimepiride 1 MG Tablet 1 tablet with breakfast or the first main meal of the day Orally Once a dayTaking SITagliptin Taking eliquis 5 mg Tablet Taking Vitamin D3 50 MCG (2000 UT) Capsule 1 capsule Orally Once a dayTaking Levothyroxine Sodium 125 MCG Tablet 1 tablet on an empty stomach in the morning Orally Once a dayTaking Fish Oil 1000 MG Capsule 1 capsule Orally Once a dayTaking metFORMIN HCl 500mg Tablet 1 tablet with meals Orally Twice a dayTaking Atorvastatin Calcium 80mg Tablet 1 tablet Orally Once a dayTaking CoQ-10 200 MG Capsule 1 capsule with a meal Orally Once a dayTaking Tamsulosin HCl 0.4 MG Capsule 1 capsule Orally 30mins after supperTaking Vitamin C Taking Glimepiride 1 MG Tablet 1 tablet with breakfast or the first main meal of the day Orally Once a dayNot- Taking/PRNCalcium 600mg Tablet as directed Orally zzzCompression Stockings 20-30mm Hg 1 pair closed toe- knee high . . .Valsartan 320 MG Tablet 1 tablet Orally Once a dayAspirin 81 MG Tablet Chewable 1 tablet Orally Once a dayCiclopirox Olamine 0.77 % Cream 1 application to affected area Externally Twice a dayCentrum Silver Tablet as directed Orally Januvia 50 MG Tablet Orally Once a dayVitamin D 2000 UNIT Tablet as directed Orally Farxiga 5 MG Tablet Orally Once a dayItraconazole 1/1% Solution Orally Pneumovax 23 25 MCG/0.5ML Injectable 0.5 ml one time Injection Once a dayTetanus Immune Globulin 250 UNIT/ML Injectable as directed Intramuscular Colcrys 0.6 MG Tablet 1 tablet Orally Once a dayMedication List reviewed and reconciled with the patientNot-Taking/PRN Calcium 600mg Tablet as directed Orally Not-Taking/PRN zzzCompression Stockings 20-30mm Hg 1 pair closed toe- knee high . . .Not- Taking/PRN Valsartan 320 MG Tablet 1 tablet Orally Once a dayNot-Taking/PRN Aspirin 81 MG Tablet Chewable 1 tablet Orally Once a dayNot-Taking/PRN Ciclopirox Olamine 0.77 % Cream 1 application to affected area Externally Twice a dayNot-Taking/PRN Centrum Silver Tablet as directed Orally Not-Taking/PRN Januvia 50 MG Tablet Orally Once a dayNot-Taking/PRN Vitamin D 2000 UNIT Tablet as directed Orally Not-Taking/PRN Farxiga 5 MG Tablet Orally Once a dayNot-Taking/PRN Itraconazole 1/1% Solution Orally Not-Taking/PRN Pneumovax 23 25 MCG/0.5ML Injectable 0.5 ml one time Injection Once a dayNot-Taking/PRN Tetanus Immune Globulin 250 UNIT/ML Injectable as directed Intramuscular Not-Taking/PRN Colcrys 0.6 MG Tablet 1 tablet Orally Once a dayMedication List reviewed and reconciled with the patient * Allergies:?Bee Sting: Swell upyes[Allergies Verified] Objective: * Vitals:?Ht: 5 ft 10 in, Wt: 154, BMI: 22.09, Shoe size: 8.5, BS: not taken, Wt- k.85 kg. * ???Past Orders: ???Lab:HEMOGLOBIN A1C (GLYCO HEMOGLOBIN) (Order Date - 01/28/2024) (Collection Date - 01/28/2024) ? Value Reference Range ?TOTAL HEMOGLOBIN (HGBA1C) 6.4 * Examination: ???Ophthalmology Referral: ?DIABETES EYE EXAM?Nails: ?NAILS are:?elongated,overgrown,dystrophic,greater than 3mm thick,discolored and friable with crumbly malodorous subungual debris,with pain on palpation, TA, T1, ,T2, T4, T5 T6, T9,.?Neurological: ?SENSORY:?Neurological exam reveals intact sensorium, pain sensation normal, vibration sensation intact, pinprick sensation is normal in the lower extremities, Pt denies, anesthesia, burning, paresthesia, tingling, B/L.?Vascular: ?DP PULSES:? 1/4 B/L.?PT PULSES:? 1/4 B/L.?CAPILLARY FILL TIME:?immediate, all digits, B/L.?EDEMA:? 2/4 non-pitting B/L Leg(s) Ankle(s) Feet.?TELANGECTASIA:?present.? Assessment: * Assessment: 1.?Tinea unguium - B35.1?2.? Type 2 diabetes mellitus without complications - E11.9?3.?Pain in right toe(s) - M79.674?4.?Pain in left toe(s) - M79.675? Plan: * Treatment: * Procedures:?Debride Nail 6-10:?Nail debridement?Performance of this nail treatment by a nonprofessional would put this patients foot and overall health at risk. Therefore, nail debridement was performed extensively to reduce/remove overall nail length, girth, thickness, subungual debris, and necrotic tissue, by manual and/or electrical means through the use of a nail nipper and/or dremel-type cylinder grinder, to a more viable healthy nail plate or bed tissue 6-10. Silver nitrate used for any petechial bleeding as necessary. Definitive antifungal treatment options have been reviewed and discussed with the patient. The patient chooses, no pharmaceutical tx - 98105.? * Procedure Codes:?18840 DEBRI DE NAIL, 6 OR MORE * Follow Up:?prn * Images: * Sign off status: Completed true * Provider:?Xenia Hernández DPM Date:?2023 Generated for Morelia martell/Bernardino/Delia on:?07/24/2024 11:01 AM EST History and Physical Notes * HPI (History of Present Illness) Category Sub-Category Detail Notes Category Not es Painful Nails Course: unchanged Treatments: Formula 7, Topical A ntifungal Pt States Last PCP Visit: Date:: 01/28/2024 At Risk footcare Pt States Last PCP Visit: Date: 4 Examination Category Sub-Category Detail Notes Category Not es Neurological SENSORY: Neurological exa m reveals intact sensorium, pain sensation normal, vibration sensation intact, pinprick sensation is normal in the lower extremities, Pt denies, anesthesia, burning, paresthesia, tingling, B/L Dermatologic SKIN FINDINGS: Ophthalmology Referral DIABETES EYE EXAM Diabeti c Retinopathy Screening:: Yes Findings of Diabetic Eye Exam:: no retin opathy Vascular DP PULSES (B): 1/4 B/L PT PULSES (B): 1/4 B/L CAPILLARY FILL TIME: immediate, all digi ts, B/L EDEMA (C): 2/4 non-pitting B/L Leg(s) Ankle(s) Feet TELANGECTASIA: present Nails NAILS are: elongated,overgr own,dystrophic,greater than 3mm thick,discolored and friable with crumbly malodorous subungual debris,with pain on palpation, TA, T1, ,T2, T4, T5 T6, T9,
--- OUTSIDE RECORDS SUMMARY | 2024-07-24 11:01 | XMS_ITS ---
Author Organization Orestes Alex MD Address [address] [place] [phone] Care Team Providers Care Durability Engineer Name Role Phone Orestes Alex Primary Care Provider [phone] REASON FOR VISIT BUN, CREATININE Encounters Encounter Location Date Provider Diagnosis Orestes Alex MD [address] [place] [phone] 07/24/2024 Orestes Alex Elevated BUN R79.9 Assessments Encounter Date Diagnosis (ICD Code) Assessment Notes Treatment Notes Treatment Clinical Notes Section Notes 07/24/2024 Elevated BUN (ICD-10 - R79.9) Plan Of Treatment Pending Test Test Name Order Date Blood Urea Nitrogen 07/24/2024 Creatinine 07/24/2024 Next Appt Details Provider Name:Orestes javier, 08/25/2024 01:45:00 PM, [address], Suite [facility], [place], [place], [phone], Provider Name:Orestes javier, 11/28/2024 08:00:00 AM, [address], [address], [place], [phone], Provider Name:Orestes Linda ricardor, 12/04/2024 01:45:00 PM, [address], [address], [place], [phone], Provider Name:Orestes Craft Belenzi ier, 06/26/2025 07:15:00 AM, [address], [address], [place], [phone], Provider Name:Orestes Linda ier, 07/03/2025 01:30:00 PM, [address], [address], [place], [phone], Progress Notes * Delia CAT WDOB:1935 (88 yo M)Acc No.[id number]:07/24/2024 Progress Note Patient:?Delia CAT W Provider:?Orestes Alex MD :1935???Age:88 Y???Sex:Male Wayne e:07/24/2024 Address:[address] [place] [address], [id number] Subjective: * Chief Complaints: * ???1. BUN, CREATININE. * Medical History:? Objective: * Vitals:? Assessment: * Assessment: 1.?Elevated BUN - R79.9??? Plan: * Treatment: * Procedure Codes:?13750 VENIP UNCT, ROUTINE* * * The named appointment provid er may or may not be the originator of this progress note, and it is not deemed complete until electronically signed by the appointment provider. Sign off status: Pending * Provider:?Orestes Alex MD Date:?0 07/24/2024 Generated for Morelia martell/Bernardino/eTransmitting on:?07/24/2024 11:01 AM EST
--- OUTSIDE RECORDS SUMMARY | 2024-07-24 11:01 | XMS_ITS | Patient Health Record ---
Author Organization [facility] Address [address] [place] [address] Care Team Providers Care Childhood Development Teacher Name Role Phone Orestes Alex MD Primary Care Provider Mario Way [phone] ALLERGIES Allergen (clinical drug ingredient) Drug/Non Drug Allergy documented on EMR Reaction Allergy Type Onset Date Status bee stings (uncoded) swells Allergy Active REASON FOR REFERRAL No Information MEDICATIONS Medication SIG (Take, Route, Frequency, Duration) Notes Start Date End Date Status Atorvastatin Calcium 80 MG 1 tablet Oral ly Once a day qhs Active Aspirin Adult Low Dose 81 MG 1 tablet Orally Once a day qhs Active Metformin & Diet Manage Prod 500 mg 2 orally bid Active Tamsulosin HCl 0.4 MG 1 pill Orally every day Active Synthroid 150 MCG 1 tablet Orally Once a day Active Glimepiride 2 MG 1 tablet with breakf ast or the first main meal of the day Orally Once a day for 30 day(s) Active Centrum Silver 1 1 tablet Orally ev kamisunday Active CoQ10 200 MG 1 capsule with a lisa l Orally Once a day Active Valsartan 320 MG 1 tablet Orally Once a day for 30 day(s) Active Vitamin D3 2000 UNIT 1 capsule Orally On ce a day Active Calcium 600 mg 1 Oral twice daily Active Fish Oil 1000 MG 2 capsules Orally at breakfast Active Vitamin C 1000 MG 1 tablet Orally Once a day Active IMMUNIZATIONS Vaccine Route Administration Date Status Comme nts Flu vaccine no Preserv 3 and > Unknown 03/08/2015 Admin istered Influenza Unknown 02/09/2018 Administered Influenza Unknown 03/02/2021 Administered SOCIAL HISTORY Sex Assigned At : Social History Observation Description Sex Assigned At Unknown Alcohol Screen Question Answer Notes Did you have a drink containing alcohol in the p ast year? No Points 0 Interpretation Negative PROBLEMS Problem Type ICD Code Onset Dates Problem Status W/U Status Risk SNOMED Code Notes Problem Constipation, unspecified constipation type (K59.00) Active confirmed 33945813 Problem Change in bowel function (R19.4) Active confirmed 03700212 Problem Rectal bleeding (K62.5) Active confirmed 74579345 Problem Anemia (D64.9) Active confirmed Anemia (769321516) Problem Anemia, unspecified type (D64.9) Active confirmed 865822355 PLAN OF TREATMENT Pending Test Test Name Order Date IRON + IBC (FE) 06/04/2022 CBC w DIFF 04/24/2022 CBC w DIFF 04/26/2022 CBC w DIFF 06/04/2022 Complete Blood Count Auto Diff 2 IRON PROFILE 06/06/2022 Future Test Test Name Order Date COLONOSCOPY 12/31/2018 Insurance Providers Payer Name Payer Address Payer Phone Subscriber Number Group Number Insured Name Patient Relationship to Insured Coverage Start Date Coverage End Date MEDICARE OF [place] [address] [place] [address] [phone] [id number] DELIA CAT Self - patient is the insured [employer] ATTN CLAIMS [address] [place] [address] [id number] DELIA CAT Self - patient is the insured MEDICAL (GENERAL) HISTORY Medical History History ICD Code Colonoscopy 10-06-2007 and 97--negative except diverticulosis and internal hemorrhoids; 3 negative Hemoccult cards in 01/2016 Hyperlipidemia BPH Denies CA,CVA,Lung disease,renal disease NIDDM Hypothyroidism Colonoscopy 01/2019 several small tubular adenomas removed Surgical History Surgery Date(Month/Year) Thumb surgery 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
--- OUTSIDE RECORDS SUMMARY | 2024-07-24 11:02 | XMS_ITS | Continuity of Care Document ---
Author Organization [facility] Address [address] [place] [address] Phone Care Team Providers Care Dredge Operator Supervisor Name Role Phone [facility], [place] Unavailable Unavailable Procedures Procedure Date STRESS ECHO W/PHY SUP/REPT DOPPLER ECHO EXAM, HEART DOPPLER COLOR FLOW ADD-ON Advance Directives Directive Yes / No Effective Date File Name No Information Encounters Encounter Description Practice Location Reason(s) For Visit Diagnoses Date Provider Providers Copied on Encounter [facility], [address], [place], [address], [place] tel:[phone] [facility] Office No Information [facility] [place]. [address], [facility], [place], [place], [id number], [place]. tel:[phone] [facility], [address], [place], [address], [place] tel:[phone] [facility] Office Shortness of Breath [facility] [place]. [address], [facility], [place], [place], [id number], [place]. tel:[phone] Referring Provider: Cherie Badillo NP [facility], [address] [facility], [place], [address]. tel:[phone] Family History Family Member Type Diagnosis Age At Onset No Information Payers Payer name Insurance type Covered republican ID Authorgricel lora(s) Medicare Part B [id number] [facility] Out Of Area [id number] Social History Type Description Quantity Date Captured [...]
--- OUTSIDE RECORDS SUMMARY | 2024-07-24 11:02 | XMS_ITS ---
Author Organization [facility] Address [address] [place] [address] Care Team Providers Care Solid Surface Fabricator Name Role Phone Orestes Alex MD Primary Care Provider Mario Way [phone] REASON FOR VISIT bowel incontinence Encounters Encounter Location Date Provider Diagnosis [facility] [address] [place] [address] 04/27/2023 Mario Allen PLAN OF TREATMENT No Information
--- OUTSIDE RECORDS SUMMARY | 2024-07-24 11:02 | XMS_ITS ---
Author Organization [facility] Address [address] [place] [address] Care Team Providers Care Loan Analyst Name Role Phone Orestes Alex MD Primary Care Provider UnavaXenia Rice Unavailable [phone] REASON FOR VISIT bought product Encounters Encounter Location Date Provider Diagnosis [address] [address] 02/14/2024 Xenia Hernández Plan Of Treatment Next Appt Details Provider Name:Xenia A Edgar , 09/01/2024 01:00:00 PM, [address] [place], [address], Progress Notes * STEPHANIARichard WDOB:1935 (88 yo M)Acc No.[id number]:02/14/2024 Patient:?Richard Chávez Thiago :1935???Age:88 Y???Sex:Male Address:[address] [place] [place] [address] * true * Date:? Generated for Printi ng/Faxing/eTransmitting on:?07/24/2024 11:01 AM EST
--- OUTSIDE RECORDS SUMMARY | 2024-07-24 11:02 | XMS_ITS ---
Author Organization Orestes Alex MD Address [address] [place], [place] [id number] Care Team Providers Care Articulation Officer Name Role Phone Orestes Alex Primary Care Provider [phone] Results Component Value Reference Range Notes Complete Blood Count Auto Di ff Reviewed date:06/20/2024 05:40:23 PM Interpretation: Performing Lab:[facility], [address] [place] [phone] Notes/Report: White Blood Count 7.8 4.8-10.8 X10*3/uL Red Blood Count 4.15 4.60-5.80 X10*6/uL Hemoglobin 13.9 14.0-18.0 g/dl Hematocrit 41.3 42.0-52.0 % Mean Corpuscular Volume 99.5 80.0-98.0 fL Mean Corpuscular Hemoglobin 33.5 27.0-33.0 pg Mean Corpuscular HGB Conc 33.7 31.0-36.0 g/dl Red Cell Distribution Width 14.2 11.0-16.0 % Platelet Count 145 160-400 X10*3/uL Mean Platelet Volume 11.0 9.4-12.4 fL Neutrophils Percent Auto 45.8 45-73 % Imm Gran Pct Auto 0.3 0.0-0.4 % Lymphocytes Percent Auto 41.0 20-40 % Monocytes Percent Auto 10.2 2-11 % Eosinophils Percent Auto 2.2 0-4 % Basophils Percent Auto 0.5 0-2 % NRBC Pct Auto 0.0 0.0-0.2 /100WBC Neutrophils Absolute Auto 3.6 2.0-8.3 x10*3/u L Imm Gran Abs Auto 0.02 0.00-0.03 X10*3/uL Lymphocytes Absolute Auto 3.2 1.2-4.9 X10*3/u L Monocytes Absolute Auto 0.8 0.1-1.2 X10*3/uL Eosinophils Absolute Auto 0.2 0.0-0.4 X10*3/u L Basophils Absolute Auto 0.0 0.0-0.2 X10*3/uL NRBC Abs Auto 0.000 0.0-0.012 X10*3/uL Comprehensive [place]. Panel Fa st Reviewed date:06/27/2024 01:10:00 PM Interpretation:[place] 06/27/24 Performing Lab:[facility], [address] [place] [phone] Notes/Report: Sodium 142 135-145 mmol/L Potassium 4.3 3.3-5.1 mmol/L Chloride 109 96-108 mmol/L Carbon Dioxide 25 22-29 mmol/L Anion Gap 12 12-20 Blood Urea Nitrogen 45 9-16 mg/dL Creatinine 1.62 0.5-1.4 mg/dL Estimated Glomerular Filt Rate 40 Chronic Kidney Disease: Estimated GFR < 60 mL/min/1.73m2 Severe Kidney Disease: Estimated GFR < 15 mL/min/1.73m2 Glucose Fasting 174 60-99 mg/dL A fasting glucose of 126 mg/dl or greater on more than one occasion is considered diagnostic of diabetes. Calcium 9.4 8.4-10.2 mg/dL Bilirubin Total 0.6 0.0-1.0 mg/dL Aspartate Amino Transferase 36 5-37 U/L Alanine Aminotransferase 31 0-40 U/L Total Protein 7.3 6.5-8.0 g/dL Albumin Level 4.2 3.5-5.0 g/dL Alkaline Phosphatase 93 39-117 U/L Lipid Panel Reviewed date:06/20/2024 05:16:22 PM Interpretation: Performing Lab:[facility], [address] [place] [phone] Notes/Report: Triglycerides 117 <150 mg/dL Desirable Triglyceride: less than 150 mg/dL Borderline High Triglyceride 150-199 mg/dL High Triglyceride: 200-499 mg/dL Very High Triglyceride: greater than or equal to 5OO mg/dL Cholesterol 143 <200 mg/dL Desirable Cholesterol: less than 200 mg/dL Borderline High Cholesterol: 200-239 mg/dL High Cholesterol: greater than 239 mg/dL LDL Cholesterol Calculated 77 <100 mg/dL Desirable LDL: less than 100 mg/dL Near Optimal/Above Optimal LDL: 110-129 mg/dL Borderline High LDL: 130-159 mg/dL High LDL: 160-189 mg/dL Very High LDL: greater than or equal to 190 mg/dL HDL Cholesterol 43 >40 mg/dL Desirable HDL: greater than 40 mg/dL Note: This HDL assay may give artificially low results in patients with liver disease. PSA,Total (Free>4and<10) Reviewed date:06/20/2024 05:11:58 PM Interpretation: Performing Lab:[facility], [address] [place] [phone] Notes/Report: PSA,Total (Free>4and<10) 0.38 0.00-4.00 ng/mL A Free PSA was not performed: The percentage of Free PSA can be used to enhance the differentiation of prostate cancer from benign prostatic disease in subjects whose PSA levels are between 4.0 and 10.0 ng/mL. For subjects whose PSA levels are below 4.0 or above 10.0 ng/mL, the risk of prostate cancer is determined on the basis of the PSA alone. Therefore the % Free PSA is recommended only for those subjects whose PSA levels are between 4.0 and 10.0 ng/mL. PSA methodology: Joseph Alinity i Chemiluminescent Microparticle Immunoassay (CMIA) Microalbumin, Random Reviewed date:06/20/2024 05:11:49 PM Interpretation: Performing Lab:[facility], [address] [place] [phone] Notes/Report: Creatinine Urine 93.86 Microalbumin Urine 107.0 Microalbum/Creatinine Ratio Ur 113.9 <30 ug/mg cr Albumin/Creatinine Ratio Reference Ranges: Normal: < 30 ug/mg creatinine Microalbuminuria: 30 - 300 ug/mg creatinine Clinical Albuminuria: > 300 ug/mg creatinine Hemoglobin A1c Reviewed date:06/20/2024 05:12:06 PM Interpretation: Performing Lab:[facility], [address] [place] [phone] Notes/Report: Hemoglobin A1c % 7.3 <6.0 % Hemoglobin A1C Reference Range Adults: 4.8 - 6.0 % Non diabetic: < 6.0 % Goal: < 7.0 % Additional Action Suggested: > 8.0 % Note: Hemoglobin A1c results are invalid for patients with abnormal amounts of HbF. Blood transfusions may impact the HbA1c concentration in the patient sample. Estimated Average Glucose 163 eAG = Estimated average glucose which is %A1C expressed as average glucose, using the formula of the N1S-Blslmfz Average Glucose study (ADAG), Diabetes Care, Vol.31,#8, Jan. 2007 UA ClnCatch+Micro w/rflx Cul t Reviewed date:06/20/2024 05:38:57 PM Interpretation: Performing Lab:[facility], [address] [place] [phone] Notes/Report: Urine, Clean Catch Color Urine Yellow Appearance Urine Clear PH 5.5 5.0-9.0 Glucose Urine UA Negative Negative mg/dL Urine Blood Negative Negative Specific [place] - Urine 1.020 1.005-1.025 Urine Protein Trace Neg-Trace mg/dL Urine Ketones Negative Negative mg/dL Nitrite Urine Negative Negative Leukocyte Esterase Urine Negative Negative RBC Urine 0-2 0-2 /HPF WBC Urine 0-5 0-5 /HPF Squamous Epithelial Cell Urine 0-2 0-2 /HPF Bacteria Urine None Seen None Seen Hyaline Casts Urine 0-2 0-2 /LPF REASON FOR VISIT yearly fasting labs Encounters Encounter Location Date Provider Diagnosis Orestes Alex MD [address] [place], [place] [phone] 06/20/2024 Orestes Alex Acquired hypothyroid ism E03.9 ; Type 2 diabetes mellitus without complication E11.9 ; Prostatism N40.0 ; Essential hypertension I10 ; Pure hypercholesterolemia E78.00 and Lymphocytosis D72.820 Assessments Encounter Date Diagnosis (ICD Code) Assessment Notes Treatment Notes Treatment Clinical Notes Section Notes 06/20/2024 Acquired hypothyroid ism (ICD-10 - E03.9) 06/20/2024 Type 2 diabetes [place] itus without complication (ICD-10 - E11.9) 06/20/2024 Prostatism (ICD-10 - N40.0) 06/20/2024 Essential hypertensi on (ICD-10 - I10) 06/20/2024 Pure hypercholesterolemia (ICD-10 - E78.00) 06/20/2024 Lymphocytosis (ICD-1 0 - D72.820) Plan Of Treatment Next Appt Details Provider Name:Orestes javier, 08/25/2024 01:45:00 PM, [address] [place] [address], [address], [phone], Provider Name:Orestes silvar, 11/28/2024 08:00:00 AM, [address] [place] [address], [address], [phone], Provider Name:Orestes silvar, 12/04/2024 01:45:00 PM, [address] [place] [address], [address], [phone], Provider Name:Orestes silvar, 06/26/2025 07:15:00 AM, [address] [place] [address], [address], [phone], Provider Name:Orestes silvar, 07/03/2025 01:30:00 PM, [address] [place] [address], [address], [phone], Progress Notes * Delia CAT WDOB:1935 (88 yo M)Acc No.[id number]:06/20/2024 Progress Note Patient:?Delia CAT Provider:?Orestes Alex MD :1935???Age:88 Y???Sex:Male Wayne e:06/20/2024 Address:[address] [place] [address] Rd, Marcelo [place], [phone] Subjective: * Chief Complaints: * ???1. Yearly fasting labs. * Medical History:? Objective: * Vitals:? Assessment: * Assessment: 1.?Acquired hypothyroidism - E03.9 (Primary)???2.?Type 2 diabetes mellitus without complication - E11.9???3.?Prostatism - N40.0???4.?Essential hypertension - I10???5.?Pure hypercholesterolemia - E78.00???6.?Lymphocytosis - D72.820??? Plan: * Treatment: 2.?Type 2 diabetes mellitus without complication?LAB: Complete Blood Count Auto Diff (Collection Date & Time - 06/20/2024 07:30 AM) ?LAB: Comprehensive [place]. Panel Fast (Collection Date & Time - 06/20/2024 07:30 AM) ?LAB: Lipid Panel (Collection Date & Time - 06/20/2024 07:30 AM) ?LAB: PSA,Total (Free>4and<10) (Collection Date & Time - 06/20/2024 07:30 AM) ?LAB: Microalbumin, Random (Collection Date & Time - 06/20/2024 07:30 AM) ?LAB: Hemoglobin A1c (Collection Date & Time - 06/20/2024 07:30 AM) ?LAB: UA ClnCatch+Micro w/rflx Cult (Collection Date & Time - 06/20/2024 07:30 AM) 3.?Prostatism?LAB: Complete Blood Count Auto Diff (Collection Date & Time - 06/20/2024 07:30 AM) ?LAB: [facility] [place]. Panel Fast (Collection Date & Time - 06/20/2024 07:30 AM) ?LAB: Lipid Panel (Collection Date & Time - 06/20/2024 07:30 AM) ?LAB: PSA,Total (Free>4and<10) (Collection Date & Time - 06/20/2024 07:30 AM) ?LAB: Microalbumin, Random (Collection Date & Time - 06/20/2024 07:30 AM) ?LAB: Hemoglobin A1c (Collection Date & Time - 06/20/2024 07:30 AM) ?LAB: UA ClnCatch+Micro w/rflx Cult (Collection Date & Time - 06/20/2024 07:30 AM) 4.?Essential hypertension?LAB: Complete Blood Count Auto Diff (Collection Date & Time - 06/20/2024 07:30 AM) ?LAB: Comprehensive [place]. Panel Fast (Collection Date & Time - 06/20/2024 07:30 AM) ?LAB: Lipid Panel (Collection Date & Time 06/20/2024 07:30 AM) ?LAB: PSA,Total (Free>4and<10) (Collection Date & Time - 06/20/2024 07:30 AM) ?LAB: Microalbumin, Random (Collection Date & Time 06/20/2024 07:30 AM) ?LAB: Hemoglobin A1c (Collection Date & Time 06/20/2024 07:30 AM) ?LAB: UA ClnCatch+Micro w/rflx Cult (Collection Date & Time - 06/20/2024 07:30 AM) 5.?Pure hypercholesterolemia ?LAB: Complete Blood Count Auto Diff (Collection Date & Time - 06/20/2024 07:30 AM) ?LAB: Comprehensive [place]. Panel Fast (Collection Date & Time 06/20/2024 07:30 AM) ?LAB: Lipid Panel (Collection Date & Time - 06/20/2024 07:30 AM) ?LAB: PSA,Total (Free>4and<10) (Collection Date & Time - 06/20/2024 07:30 AM) ?LAB: Microalbumin, Random (Collection Date & Time - 06/20/2024 07:30 AM) ?LAB: Hemoglobin A1c (Collection Date & Time - 06/20/2024 07:30 AM) ?LAB: UA ClnCatch+Micro w/rflx Cult (Collection Date & Time - 06/20/2024 07:30 AM) 6.?Lymphocytosis?LAB: Complete Blood Count Auto Diff (Collection Date & Time - 06/20/2024 07:30 AM) ?LAB: Comprehensive [place]. Panel Fast (Collection Date & Time - 06/20/2024 07:30 AM) ?LAB: Lipid Panel (Collection Date & Time - 06/20/2024 07:30 AM) ?LAB: PSA,Total (Free>4and<10) (Collection Date & Time - 06/20/2024 07:30 AM) ?LAB: Microalbumin, Random (Collection Date & Time - 06/20/2024 07:30 AM) ?LAB: Hemoglobin A1c (Collection Date & Time - 06/20/2024 07:30 AM) ?LAB: UA ClnCatch+Micro w/rflx Cult (Collection Date & Time - 06/20/2024 07:30 AM) * Procedure Codes:?23309 VENIP UNCT, ROUTINE* * * The named appointment provid er may or may not be the originator of this progress note, and it is not deemed complete until electronically signed by the appointment provider. Sign off status: Pending * Provider:?Orestes Alex MD Date:?0 06/20/2024 Generated for Morelia martell/Bernardino/eTmikysmitting on:?07/24/2024 11:01 AM EST
--- OUTSIDE RECORDS SUMMARY | 2024-07-24 11:02 | XMS_ITS ---
Author Organization [facility] Address [address] [place] [address] Care Team Providers Care Public Health Policy Analyst Name Role Phone Isai DAVILA, Orestes Primary Care Provider Yakelin Hernández, Xenia Unavailable [phone] Allergies Allergen (clinical drug ingredient) Drug/Non Drug Allergy documented on EMR Reaction Allergy Type Onset Date Status Bee Sting Swell up Allergy Active REASON FOR VISIT At Risk Footcare, Painful nail(s) aggrevated by shoes and causing difficulty standing/walking., Ingrown nail(s) Medications Medication SIG (Take, Route, Frequency, Duration) Notes Start Date End Date Status Vitamin D 2000 UNIT as directed Orally Not-Taking Farxiga 5 MG Orally Once a day Not-Taking Itraconazole 1/1% Orally No t-Taking Januvia 50 MG Orally Once a day Not-Taking Centrum Silver as directed Orally Not-Taking Ciclopirox Olamine 0.77 % 1 application to affected area Externally Twice a day for 30 days 02/28/2018 Not-Taking Calcium 600mg as directed Orally Not-Taking zzzCompression Stockings 20-30mm Hg . . . for . Not-Taking Valsartan 320 MG 1 tablet Orally Once a day Not-Taking Aspirin 81 MG 1 tablet Orally Once a day for 30 day(s) Not-Taking CoQ-10 200 MG 1 capsule with a lisa l Orally Once a day for 30 day(s) Active Tamsulosin HCl 0.4 MG 1 capsule Orally 3 0mins after supper Active Vitamin C Active Glimepiride 1 MG 1 tablet with breakf ast or the first main meal of the day Orally Once a day Active Atorvastatin Calcium 80mg 1 tablet Orall y Once a day for 30 day(s) Active Fish Oil 1000 MG 1 capsule Orally Onc e a day for 30 day(s) Active metFORMIN HCl 500mg 1 tablet with meals Orally Twice a day for 30 day(s) Active eliquis 5 mg Active Vitamin D3 50 MCG (2000 UT) 1 capsule Orally Once a day for 30 day(s) Active Levothyroxine Sodium 125 MCG 1 tablet on an empty stomach in the morning Orally Once a day Active Pneumovax 23 25 MCG/0.5ML 0.5 ml one barbara e Injection Once a day for 1 day(s) Not-Taking SITagliptin Active Tetanus Immune Globulin 250 UNIT/ML as directed Intramuscular Not-Taking Colcrys 0.6 MG 1 tablet Orally Once a day for 10 days 02/26/2013 Not-Taking Social History Tobacco Use: Social History Observation Description Date Details (start date - stop date) Former Smoker NA - NA Tobacco Use/Smoking Question Answer Notes Are you a: former smoker Additional Findings: Tobacco Non-User Current no n-smoker Tobacco use other than smoking: Question Answer Notes Are you an other tobacco user? No Vital Signs Height 5 ft 10 in in 05/26/2024 Weight 155 lbs 05/26/2024 BMI 22.24 kg/m2 05/26/2024 Blood pressure systolic 157 mm Hg 05/26/20 24 Blood pressure diastolic 67 mm Hg 024 Procedures Procedure Date Ordered Date Performed Result Body Sit e 94622-RRUBIME NAIL, 6 OR MORE 05/26/2024 N/A 66399-Ejubgufs Plate 05/26/2024 N/A 59588-Daqeulqk Plate Each Additional 05/26/2024 N/A Encounters Encounter Location Date Provider Diagnosis [facility] [address] [place] [address] 05/26/2024 Xenia Black Tinea unguium B35.1 ; Ingrown nail L60.0 ; Type 2 diabetes mellitus without complications E11.9 ; Pain in right toe(s) M79.674 and Pain in left toe(s) M79.675 Assessments Encounter Date Diagnosis (ICD Code) Assessment Notes Treatment Notes Treatment Clinical Notes Section Notes 05/26/2024 Tinea unguium (ICD-10 - B35.1) 05/26/2024 Ingrown nail (ICD-10 - L60.0) 05/26/2024 Type 2 diabetes mellitus without complications (ICD-10 - E11.9) 05/26/2024 Pain in right toe(s) (ICD-10 - M79.674) 05/26/2024 Pain in left toe(s) (ICD-10 - M79.675) Plan Of Treatment Pending Test Test Name Order Date 55228-VURICMS NAIL, 6 OR MORE 05/26/2024 53452-Lmoyfwvw Plate 05/26/2024 86998-Lccbpdqy Plate Each Additional Next Appt Details Follow Up: 2 Weeks,prn, Shara on: Provider Name:Xenia Hernández , 09/01/2024 01:00:00 PM, [address] [place] [address], [phone], Procedure Notes * Category Sub-Category Detail Notes Nail Avulsion Procedure A fine sterile e levator was placed between the eponychium, nail fold, and nail plate to separate the the structures. A sterile nail splitter, and/or sterile 316 blade, was then used to longitudinally section the nail along its entire length through the eponychium to the area under the nail fold. The offending portion of each nail was from the nail bed with a rolling action and then removed with a hemostat. No underlying bone was identified. There was minimal bleeding as hemostasis was achieved through use of either a digital tournaquet or the aforementioned local with epinephrine. A bacitracin sterile dressing was applied. Local wound aftercare instructions were discussed and dispensed. The patient was informed of both conservative and future surgical procedures to prevent recurrence (41106/32), DIABETES: Matricectomy deferred at this time due to diabetes risk Anesthesia , was accomplished T OPICALLY with Lidocaine Hydrochloride Jelly 2 percent Location Bilateral nail borde r, T1, T6 Debride Nail 6-10 Nail debridement Due to the cl inical pathology outlined in the exam findings, performance of this nail treatment is medically necessary as its management by an unskilled/untrained nonprofessional would put this patients foot and overall health at risk. Therefore, debridement to affected nail(s), as described in exam ( TA, ,T2, T3, T4, T5 T8, T9,), was performed exclusively by the physician of record to reduce/remove overall nail length, girth, thickness, subungual debris, and necrotic tissue, by manual and/or electrical means through the use of a nail nipper and/or dremel-type precision grinder, to a more viable healthy nail plate or bed tissue 6-10 nails in total. Silver nitrate was used for any petechial bleeding as necessary. Definitive antifungal treatment options, both pharmaceutical and surgical, have been reviewed and discussed with the patient. The patient solely prefers the use of intermittent/as needed professional debridement services for their nail condition and understands the need for additional periodic treatments to maintain effectiveness in symptomatic relief - 68723 Progress Notes * Richard CAT WDOB:1935 (88 yo M)Acc No.[id number]:05/26/2024 Progress Note Patient:?Richard CAT Provider:?Xenia Hernández DPM :1935???Age:88 Y???Sex:Male Wayne e:05/26/2024 Address:[address] [place] [address] , [facility] [place], [id number] Pcp:Orestes Alex MD Subjective: * Chief Complaints: * ???At Risk Footcare Painful nail(s) aggrevated by shoes and causing difficulty standing/walking.Ingrown nail(s) * HPI: ???At Risk footcare:?Pt States Last PCP Visit:?Date?03/11/2024 ???Painful Nails:?Pt States Last PCP Visit:?Date:?03/11/2024 ?Course:?unchanged.?Treatments:?Formula 7, Topical Antifungal, relates non-adherence to recom tx.? * ROS:?General/Constitutional:?Nausea?denies.?Vomiting?denies.?Hunger Thirst?denies.?Loss appetite?denies.?Chills?denies.?Fatigue?denies.?Fever?denies.?Night Sweats?denies.?Unexplained weight loss?denies.?Unexplained weight gain?denies.?HEENTM:?Dentures?denies.?Dizziness?denies.?Glasses/contacts?denies.?Retinopathy?den ies.?Blurred/double vision?denies.?TMJ?denies.?Discharge/drainage?denies.?Implants?denies.?Sore throat?denies.?Dental implants?denies.?Hard of hearing ?denies.?Difficulty chewing/swallowing/speaking?denies.?Nose bleeds?denies.?Sore mouth?denies.?Respiratory:?On O xygen?denies.?Pneumonia/pleurisy?denies.?Bronchitis?denies.?Emphysema?denies.?Co ughing?denies.?Cough blood?denies.?Shortness of breath?denies.?Wheezing?denies.?Cardiovascular:?Pacemaker?denies.?MVP?denies.?WPW?denies.?CHF?denies.?Heart attack?denies.?Septal defect?denies.?Rapid beat?denies.?Chest pain ?denies.?Atrial Fib.?denies.?Murmur/Palpitations?denies.?Gastrointestinal:?Hemorrhoids?denies.?Stomach/Abdominal pain?denies.?Dark blood stool?denies.?Irritable bowel ?denies.?Constipation?denies.?Diarrhea?denies.?Hematology:?Swelling?denies.?Clots?denies.?Varicose Veins?denies.?Bruising?denies.?Bleeding problem?denies.?Genitourinary:?Blood urine?denies.?Frequent/Painfu/urination/bladder control?denies.?Kidney stones?denies.?Infection (UTI)?denies.?Nephropathy?denies.?sex trans dis (STD)?denies.?Prostate?denies.?Musculoskeletal:?Hammertoes?denies.?Bunions?denies.?Back Pain?denies.?Muscle Cramps/ Resting?denies.?Muscle cramps / walking?denies.?Generalized aches and pains?denies.?Weakness?denies.?Integ.:?Garcia?denies.?Scars?denies.?Corns/calluses?denies.?Ingrown nails?, admits.?Painful nails?,admits.?Open Sores?denies.?Rashes?denies.?Neurologic:?Difficulty sleeping?denies.?Brain disorder?denies.?Numbness?denies.?Balance t rouble?denies.?Confusion?denies.?Fainting/blackouts?denies.?Tingling?denies.?Roel mors?denies.? * Medical History:? * Surgical History:?finger chelly [...] than smoking?Are you an other tobacco user??No * Medications:?TakingSITaglipt in eliquis 5 mg Tablet Vitamin D3 50 MCG (2000 UT) Capsule 1 capsule Orally Once a day Levothyroxine Sodium 125 MCG Tablet 1 tablet on an empty stomach in the morning Orally Once a day Fish Oil 1000 MG Capsule 1 capsule Orally Once a day metFORMIN HCl 500mg Tablet 1 tablet with meals Orally Twice a day Atorvastatin Calcium 80mg Tablet 1 tablet Orally Once a day CoQ-10 200 MG Capsule 1 capsule with a meal Orally Once a day Tamsulosin HCl 0.4 MG Capsule 1 capsule Orally 30mins after supper Vitamin C Glimepiride 1 MG Tablet 1 tablet with breakfast or the first main meal of the day Orally Once a day Taking SITagliptin Taking eliquis 5 mg Tablet Taking Vitamin D3 50 MCG (2000 UT) Capsule 1 capsule Orally Once a day Taking Levothyroxine Sodium 125 MCG Tablet 1 tablet on an empty stomach in the morning Orally Once a day Taking Fish Oil 1000 MG Capsule 1 capsule Orally Once a day Taking metFORMIN HCl 500mg Tablet 1 tablet with meals Orally Twice a day Taking Atorvastatin Calcium 80mg Tablet 1 tablet Orally Once a day Taking CoQ-10 200 MG Capsule 1 capsule with a meal Orally Once a day Taking Tamsulosin HCl 0.4 MG Capsule 1 capsule Orally 30mins after supper Taking Vitamin C Taking Glimepiride 1 MG Tablet 1 tablet with breakfast or the first main meal of the day Orally Once a day Not- Taking/PRNCalcium 600mg Tablet as directed Orally zzzCompression Stockings 20-30mm Hg 1 pair closed toe- knee high . . . Valsartan 320 MG Tablet 1 tablet Orally Once a day Aspirin 81 MG Tablet Chewable 1 tablet Orally Once a day Ciclopirox Olamine 0.77 % Cream 1 application to affected area Externally Twice a day Centrum Silver Tablet as directed Orally Januvia 50 MG Tablet Orally Once a day Vitamin D 2000 UNIT Tablet as directed Orally Farxiga 5 MG Tablet Orally Once a day Itraconazole 1/1% Solution Orally Pneumovax 23 25 MCG/0.5ML Injectable 0.5 ml one time Injection Once a day Tetanus Immune Globulin 250 UNIT/ML Injectable as directed Intramuscular Colcrys 0.6 MG Tablet 1 tablet Orally Once a day Medication List reviewed and reconciled with the patientNot-Taking/PRN Calcium 600mg Tablet as directed Orally Not-Taking/PRN zzzCompression Stockings 20-30mm Hg 1 pair closed toe- knee high . . . Not- Taking/PRN Valsartan 320 MG Tablet 1 tablet Orally Once a day Not-Taking/PRN Aspirin 81 MG Tablet Chewable 1 tablet Orally Once a day Not-Taking/PRN Ciclopirox Olamine 0.77 % Cream 1 application to affected area Externally Twice a day Not-Taking/PRN Centrum Silver Tablet as directed Orally Not-Taking/PRN Januvia 50 MG Tablet Orally Once a day Not-Taking/PRN Vitamin D 2000 UNIT Tablet as directed Orally Not-Taking/PRN Farxiga 5 MG Tablet Orally Once a day Not-Taking/PRN Itraconazole 1/1% Solution Orally Not-Taking/PRN Pneumovax 23 25 MCG/0.5ML Injectable 0.5 ml one time Injection Once a day Not-Taking/PRN Tetanus Immune Globulin 250 UNIT/ML Injectable as directed Intramuscular Not-Taking/PRN Colcrys 0.6 MG Tablet 1 tablet Orally Once a day Medication List reviewed and reconciled with the patient * Allergies:?Bee Sting: Swell upyes[Allergies Verified] Objective: * Vitals:?Ht: 5 ft 10 in, Wt: 155, BMI: 22.24, Shoe size: 8.5, BP: 157/67 mm Hg, BS: not taken, Wt-k.31 kg. * ???Past Orders: Lab:HEMOGLOBIN A1C (GLYCOHEM OMERO) * Collection Date 06/20/2024 01/28/2024 Collection Time 07:48 PM 02:51 PM Order Date 01/28/2024 01/28/2024 HEMOGLOBIN A1C % (HH) 6.4 NR TOTAL HEMOGLOBIN (HGBA1C) NR 6.4 * Examination: ???Ophthalmology Referral: ?DIABETES EYE EXAM?Nails: ?NAILS are:?elongated,overgrown,dystrophic,greater than 3mm thick,discolored and friable with crumbly malodorous subungual debris,with pain on palpation, TA, ,T2, T3, T4, T5?T8, T9,.?Neurological: ?SENSORY:?Neurological exam reveals intact sensorium, pain sensation normal, vibration sensation intact, pinprick sensation is normal in the lower extremities, Pt denies, anesthesia, burning, paresthesia, tingling, B/L.?Vascular: ?DP PULSES (B):? 1/4 B/L.?PT PULSES (B):? 1/4 B/L.?CAPILLARY FILL TIME:?immediate, all digits, B/L.?EDEMA (C):? 2/4 non-pitting B/L Leg(s) Ankle(s) Feet.?TELANGECTASIA:?present.?Ingrown Nail: ?INSPECTION:?Reveals nail incurvation, pain on palpation, groove hypertrophy, groove ischemia, Bilateral nail borders, T1, T6.?General Examination: ?GENERAL APPEARANCE:?Reveals a pleasant, alert, well nourished, well- developed, well hydrated individual, who demonstrates proper attention to hygiene/body habitus, and is in no acute distress, Pt serves as own historian for office visit today.?ORIENTED:?person, place, and time.?FOOT EXAM:?Footwear Evaluation?Orthopedic: ?FOOTWEAR:?good condition.? Assessment: * Assessment: 1.?Tinea unguium - B35.1???2 .?Ingrown nail - L60.0 (Primary)???3.?Type 2 diabetes mellitus without complications - E11.9???4.?Pain in right toe(s) - M79.674???5.?Pain in left toe(s) - M79.675??? Plan: * Treatment: 2.?Tinea unguium?Procedure: 10634-BRJATJM NAIL, 6 OR MORE * Procedures:?Debride Nail 6-10:?Nail debridement?Due to the clinical pathology outlined in the exam findings, performance of this nail treatment is medically necessary as its management by an unskilled/untrained nonprofessional would put this patients foot and overall health at risk. Therefore, debridement to affected nail(s), as described in exam ( TA, ,T2, T3, T4, T5 T8, T9,), was performed exclusively by the physician of record to reduce/remove overall nail length, girth, thickness, subungual debris, and necrotic tissue, by manual and/or electrical means through the use of a nail nipper and/or dremel-type precision grinder, to a more viable healthy nail plate or bed tissue 6-10 nails in total. Silver nitrate was used for any petechial bleeding as necessary. Definitive antifungal treatment options, both pharmaceutical and surgical, have been reviewed and discussed with the patient. The patient solely prefers the use of intermittent/as needed professional debridement services for their nail condition and understands the need for additional periodic treatments to maintain effectiveness in symptomatic relief - 01911.?Nail Avulsion:?Location?Bilateral nail border, T1, T6.?Anesthesia?, was accomplished TOPICALLY with Lidocaine Hydrochloride Jelly 2 percent.?Procedure?A fine sterile elevator was placed between the eponychium, nail fold, and nail plate to separate the the structures. A sterile nail splitter, and/or sterile 316 blade, was then used to longitudinally section the nail along its entire length through the eponychium to the area under the nail fold. The offending portion of each nail was from the nail bed with a rolling action and then removed with a hemostat. No underlying bone was identified. There was minimal bleeding as hemostasis was achieved through use of either a digital tournaquet or the aforementioned local with epinephrine. A bacitracin sterile dressing was applied. Local wound aftercare instructions were discussed and dispensed. The patient was informed of both conservative and future surgical procedures to prevent recurrence (79419/32), DIABETES: Matricectomy deferred at this time due to diabetes risk.? * Procedure Codes:?36597 DEBRI DE NAIL, 6 OR [id number] Avulsion Plate, Modifiers: T1 19380 Avulsion Plate Each Additional, Modifiers: T6 * Preventive Medicine:? ??Counseling:?Shoe Gear Counseling:?The patient deferred recommended diabetic shoes with heat moled inserts.? ??Screening/Special Tests:?Fall Risk?Screening:?Two or more falls with injury in the past year ?FALLS: Screening for Future Fall Risk?Have you had two or more falls in the past year??Yes ?Have you had any falls with injury in the past year??Yes * Follow Up:?2 Weeks,prn * Images: * Sign off status: Completed true * Provider:?ABNER CarsonM Date:?2023 Generated for Printi ng/Falaurieg/eTransmitting on:?07/24/2024 11:01 AM EST History and Physical Notes * HPI (History of Present Illness) Category Sub-Category Detail Notes Category Not es Painful Nails Course: unchanged Treatments: Formula 7, Topical A ntifungal, relates non-adherence to recom tx Pt States Last PCP Visit: Date:: 03/11/2024 At Risk footcare Pt States Last PCP Visit: Date: Examination Category Sub-Category Detail Notes Category Not es Ingrown Nail INSPECTION: Reveals nail inc urvation, pain on palpation, groove hypertrophy, groove ischemia, Bilateral nail borders, T1, T6 Neurological SENSORY: Neurological exa m reveals intact sensorium, pain sensation normal, vibration sensation intact, pinprick sensation is normal in the lower extremities, Pt denies, anesthesia, burning, paresthesia, tingling, B/L Dermatologic SKIN FINDINGS: Orthopedic FOOTWEAR: good condition General Examination GENERAL APPEARANCE: Reveals a pleasant, alert, well nourished, well-developed, well hydrated individual, who demonstrates proper attention to hygiene/body habitus, and is in no acute distress, Pt serves as own historian for office visit today FOOT EXAM: Lower Extremity Neurological Exa m performed:: Yes Visual exam of foot performed:: Yes Date: 05/26/2025 Sensory testing performed:: sensations d iminished Sensory and motor testing performed:: se nsations diminished Pedal pulse taking performed:: 1+ ORIENTED: person, place, and t fito Footwear Evaluation Footwear Evaluation performe d:: Yes Ophthalmology Referral DIABETES EYE EXAM Procedure Perform ed:: Yes ?Date of Exam Performed: 04/28/2024 Diabetic Retinopathy Screening:: Yes Findings of Diabetic Eye Exam:: no retin opathy Vascular DP PULSES (B): 1/4 B/L PT PULSES (B): 1/4 B/L CAPILLARY FILL TIME: immediate, all digi ts, B/L EDEMA (C): 2/4 non-pitting B/L Leg(s) Ankle(s) Feet TELANGECTASIA: present Nails NAILS are: elongated,overgr own,dystrophic,greater than 3mm thick,discolored and friable with crumbly malodorous subungual debris,with pain on palpation, TA, ,T2, T3, T4, T5 T8, T9,
--- OUTSIDE RECORDS SUMMARY | 2024-07-24 11:02 | XMS_ITS ---
Author Organization Orestes Alex MD Address [address] [place], [place] [id number] Care Team Providers Care Respiratory Coordinator Name Role Phone Orestes Alex Primary Care Provider Allergies No Known Allergies REASON FOR VISIT review labs, CBACK LABS Medications Medication SIG (Take, Route, Frequency, Duration) Notes Start Date End Date Status Dilt-XR 180 MG TAKE 1 CAPSULE BY [facility] EVERY DAY Active Amoxicillin 500 MG 4 capsule Orally one hour before dentist for 1 days 05/29/2023 Active Atorvastatin Calcium 80 MG TAKE 1 TABLET ONCE DAILY Active Accu-Chek Suzanne Plus 0 DIRECTED DAILY IN VITRO 90 Active Tamsulosin HCl 0.4 MG TAKE 1 CAPSULE ONC E DAILY DIRECTED Active FreeStyle Lancets - USE TO TEST BLOOD SAINZ GAR FOUR TIMES DAILY for 90 Active Eliquis 5 MG TAKE 1 TABLET TWICE A DAY Active FreeStyle Lite Test - USE TO TEST BLOOD SUGAR FOUR TIMES DAILY for 100 Active Furosemide 40 MG TAKE 1 TABLET BY ETELVINA TH EVERY DAY for 30 Active Metoprolol Succinate ER 25 MG 1 tablet Orally Once a day Active metFORMIN HCl 500 MG 1 tablet Orally twi ce a day Active FeroSul 325 (65 Fe) MG TAKE 1 TABLET BY MOUTH EVERY DAY for 90 Active SITagliptin 50 MG 1tablets Orally Once a day Active glipiZIDE 5 MG TAKE 1 TABLET ONCE D AILY 30MINUTES BEFORE BREAKFAST Active Levothyroxine Sodium 125 MCG TAKE 1 TABL ET EVERY MORNINGON AN EMPTY STOMACH for 90 Active Social History Tobacco Use: Social History Observation Description Date Details (start date - stop date) Former Smoker NA - NA Tobacco Use/Smoking Question Answer Notes Patient is a former smoker How long has it been since y ou last smoked? > 10 years Additional Findings: Tobacco Non-User Fo rmer smoker, currently using no form of tobacco Alcohol Screen Question Answer Notes Did you have a drink containing alcohol in the p ast year? No Points 0 Interpretation Negative Vital Signs Blood pressure systolic 132 mm Hg 06/27/19 25 Blood pressure diastolic 60 mm Hg 025 Height 67 in 06/27/2024 Weight 165 lbs 06/27/2024 BMI 25.84 kg/m2 06/27/2024 Encounters Encounter Location Date Provider Diagnosis Orestes Alex MD [address] [facility] [address] [place], [place] [id number] 06/27/2024 Orestes Alex Elevated BUN R79.9 ; Type 2 diabetes mellitus without complication E11.9 ; Essential hypertension I10 ; Prostatism N40.0 ; Pure hypercholesterolemia E78.00 ; Colon cancer screening Z12.11 ; Depression screening Z13.31 and Atrial fibrillation I48.91 Assessments Encounter Date Diagnosis (ICD Code) Assessment Notes Treatment Notes Treatment Clinical Notes Section Notes 06/27/2024 Elevated BUN (ICD-10 - R79.9) decrease furosemide to one half 06/27/2024 Type 2 diabetes monroe itus without complication (ICD-10 - E11.9) doing well on meds 06/27/2024 Essential hypertensi on (ICD-10 - I10) doing well on meds 06/27/2024 Prostatism (ICD-10 - N40.0) 06/27/2024 Pure hypercholesterolemia (ICD-10 - E78.00) 06/27/2024 Colon cancer screeni ng (ICD-10 - Z12.11) 06/27/2024 Depression screening (ICD-10 - Z13.31) 06/27/2024 Atrial fibrillation (ICD-10 - I48.91) stable, will continue current regiment Plan Of Treatment Medication Medication Name Sig Start Date Stop Date Notes Dilt-XR 180 MG TAKE 1 CAPSULE BY MO [facility] EVERY DAY Atorvastatin Calcium 80 MG TAKE 1 TABLET ONCE DAILY Tamsulosin HCl 0.4 MG TAKE 1 CAPSULE ONC E DAILY DIRECTED Eliquis 5 MG TAKE 1 TABLET TWICE A DAY Metoprolol Succinate ER 25 MG 1 tablet Orally Once a day metFORMIN HCl 500 MG 1 tablet Orally twice a day SITagliptin 50 MG 1tablets Orally Once a day glipiZIDE 5 MG TAKE 1 TABLET ONCE D AILY 30MINUTES BEFORE BREAKFAST Treatment Notes Assessment Notes Elevated BUN decrease furosemide to one half Type 2 diabetes mellitus without complic ation doing well on meds Essential hypertension doing well on med s Atrial fibrillation stable, will continu e current regiment Pending Test Test Name Order Date Blood Urea Nitrogen 06/27/2024 Creatinine 06/27/2024 Next Appt Details Follow Up: 2 Months, Reason: Provider Name:Orestes javier, 08/25/2024 01:45:00 PM, [address] [place] [address], [address], [phone], Provider Name:Orestes javier, 11/28/2024 08:00:00 AM, [address] [place] [address], [address], [phone], Provider Name:Orestes javier, 12/04/2024 01:45:00 PM, [address] [place] [address], [address], [phone], Provider Name:Orestes javier, 06/26/2025 07:15:00 AM, [address] [place] [address], [address], [phone], Provider Name:Orestes javier, 07/03/2025 01:30:00 PM, [address] [place] [address], [address], [phone], Progress Notes * Delia CAT WDOB:1935 (88 yo M)Acc No.[id number]:06/27/2024 Patient:?Delia CAT Provider:?Orestes Alex MD :1935???Age:88 Y???Sex:Male Wayne e:06/27/2024 Address:[address] [place] [address], [place], [id number] Subjective: * Chief Complaints: * ???1. Review labs. 2. CBACK LABS. * HPI: ???Depression Screening:?PHQ-9?Little interest or pleasure in doing things?Not at all,?Feeling down, depressed, or hopeless?Not at all,?Trouble falling or staying asleep, or sleeping too much?Not at all,?Feeling tired or having little energy?Not at all,?Poor appetite or overeating?Not at all,?Feeling bad about yourself or that you are a failure, or have let yourself or your family down?Not at all,?Trouble concentrating on things, such as reading the newspaper or watching television?Not at all,?Moving or speaking so slowly that other people could have noticed; or the opposite, being so fidgety or restless that you have been moving around a lot more than usual?Not at all,?Thoughts that you would be better off or of hurting yourself in some way?Not at all,?Total Score?0.?Interpretation and Intervention?Depression Screening Findings?Negative,?Follow-Up for Depression?: review of PHQ-9 found negative result, no follow-up needed.?Communication Needs:?Communication Needs?Does the patient have a hearing impairment?Yes,?If yes, what is the hearing impairment??Hard of hearing, Hearing Aids,?Does the patient have a vision impairment??Yes,?If yes, what is the vision impairment??Glasses,?Does the patient have a cognition impairment??No.?Fall Risk:?History?Have you had any falls with injury in the past year??No,?Have you had two or more falls in the past year??No.?SDOH Questions:?SDOH Questions?In the past year have you been worried about losing housing??No,?In the past year have you or any family members you live with been unable to get any of the following when it was really needed? Check all that apply:?None.? * ROS:?General/Constitutional:?Patient denies?fatigue , headache.?Change in appetite?denies.?Chills?denies.?Fever?denies.?Ophthalmologic:?Blurred vision?denies.?Discharge?denies.?Pain?denies.?ENT:?Patient denies?decreased sense of smell , any loss of taste , sore throat.?Decreased hearing?denies.?Sore throat?denies.?Swollen glands?denies.?Endocrine:?Cold intolerance?denies.?Excessive thirst?denies.?Heat intolerance?denies.?Weight loss?denies.?Respiratory:?Cough?denies.?Shortness of breath at rest?denies.?Shortness of breath with exertion?denies.?Wheezing?denies.?Cardiovascular:?Chest pain at rest?denies.?Chest pain with exertion?denies.?Irregular heartbeat?denies.?Shortness of breath?denies.?Gastrointestinal:?Patient complaining of?occasional diarrhea.?Abdominal pain?denies.?Change in bowel habits?denies.?Diarrhea?denies.?Nausea?denies.?Rectal bleeding?denies.?Vomiting?denies .?Genitourinary:?Blood in urine?denies.?Difficulty urinating?denies.?Frequent urination?denies.?Musculoskeletal:?Patient denies?muscle aches.?Painful joints?denies.?Weakness?denies.?Peripheral Vascular:?Patient denies?red and blue toes.?Skin:?Dry skin?denies.?Itching?denies.?Denies?Mole(s),? changes in moles, new moles or any lesions of concern.?Denies?Photosensitivity.?Rash?denies.?Neurologic:?Dizziness?denies.?Fainting?denies.?Headache?denies.? * Medical History:?Hypothyroid ism, type II diabetes, Hypercholesterolemia, colonoscopy 2008 not to have any more; Colonoscopy 01/09/19 - Dr. Allen, Cardiac cath october 2016 entirely normal, Sitiglip is januvia. * Family History:?Father: dece ased 77 yrs, CVA.?Mother: 75 yrs, uterine cancer.?2 sister(s) . 1 son(s) , 1 daughter(s) . .? 1 son airplane crash Father- Cardiac Mother [employer] cancer, No pertinent family medical history, Denies mental health/substance abuse family history, Denies mental health/substance abuse family history, No pertinent family medical history, Denies mental health/substance abuse family history, Denies mental health/substance abuse family history. * Social History:?Tobacco Use:?Tobacco Use/Smoking?Patient is a?former smoker,?How long has it been since you last smoked??> 10 years,?Additional Findings: Tobacco Non-User?Former smoker, currently using no form of tobacco.?Drugs/Alcohol:?Alcohol Screen?Did you have a drink containing alcohol in the past year??No,?Points?0,?Interpretation?Negative.?Miscellaneous:?Caffeine: no. Children: yes. Exercise: yes, walks aroung the yard. Home smoke detector use: yes. Housing: owning. Living with: spouse. Marital status: . Occupation: retired. Pets: none. Travel outside of the [place]: no. * Medications:?Taking Metoprol ol Succinate ER 25 MG Tablet Extended Release 24 Hour 1 tablet Orally Once a day , Taking Accu-Chek Suzanne Plus 0 Strip DIRECTED DAILY IN VITRO 90 , Taking Amoxicillin 500 MG Capsule 4 capsule Orally one hour before dentist , Taking Atorvastatin Calcium 80 MG Tablet TAKE 1 TABLET ONCE DAILY , Taking Levothyroxine Sodium 125 MCG Tablet TAKE 1 TABLET EVERY MORNINGON AN EMPTY STOMACH , Taking Dilt-XR 180 MG Capsule Extended Release 24 Hour TAKE 1 CAPSULE BY MOUTH EVERY DAY , Taking FeroSul 325 (65 Fe) MG Tablet TAKE 1 TABLET BY MOUTH EVERY DAY , Taking Furosemide 40 MG Tablet TAKE 1 TABLET BY MOUTH EVERY DAY , Taking FreeStyle Lite Test - Strip USE TO TEST BLOOD SUGAR FOUR TIMES DAILY , Taking FreeStyle Lancets - Miscellaneous USE TO TEST BLOOD SUGAR FOUR TIMES DAILY , Taking Tamsulosin HCl 0.4 MG Capsule TAKE 1 CAPSULE ONCE DAILY DIRECTED , Taking Eliquis 5 MG Tablet TAKE 1 TABLET TWICE A DAY , Taking glipiZIDE 5 MG Tablet TAKE 1 TABLET ONCE DAILY 30MINUTES BEFORE BREAKFAST , Taking SITagliptin 50 MG Tablet 1tablets Orally Once a day , Taking metFORMIN HCl 500 MG Tablet 1 tablet Orally twice a day , Medication List reviewed and reconciled with the patient * Allergies:?N.K.D.A. Objective: * Vitals:?Ht: 67, Wt:165, BMI: 25.84, BP:132/60. * ???Past Orders: ???Lab:Microalbumin, Random (Order Date - 06/20/2024) (Collection Date & Time - 06/20/2024 07:30 AM) ? Value Reference Range ?Creatinine Urine 93.86 - m g/dL ?Microalbumin Urine 107.0 - mg/L ?Microalbum Creatinine Ratio Ur 113.9 H <30 - ug/mg cr ???Lab:Hemoglobin A1c (Order Date - 06/20/2024) (Collection Date & Time - 06/20/2024 07:30 AM) ? Value Reference Range ?Hemoglobin A1c % 7.3 H <6. 0 - % ?Estimated Average Glucose 163 - mg/dL ???Lab:UA ClnCatch+Micro w/r flx Cult (Order Date - 06/20/2024) (Collection Date & Time - 06/20/2024 07:30 AM) ? Value Reference Range ?Color Urine Yellow - ?Appearance Urine Clear - ?PH 5.5 5.0-9.0 - ?Glucose Urine UA Negative Neg ative - mg/dL ?Urine Blood Negative Negative - ?Specific [place] - Urine 1.020 1.005-1.025 - ?Urine Protein Trace Neg-Tr darwin - mg/dL ?Urine Ketones Negative Negati ve - mg/dL ?Nitrite Urine Negative Negati ve - ?Leukocyte Esterase Urine Negative Negative - ?RBC Urine 0-2 0-2 - /HPF ?WBC Urine 0-5 0-5 - /HPF ?Squamous Epithelial Cell Urine 0-2 0-2 - /HPF ?Bacteria Urine None Seen None Seen - ?Hyaline Casts Urine 0-2 0-2 - /LPF ???Lab:Complete Blood Count Auto Diff (Order Date - 06/20/2024) (Collection Date & Time - 06/20/2024 07:30 AM) ? Value Reference Range ?White Blood Count 7.8 4. 8-10.8 - X10*3/uL ?Red Blood Count 4.15 L 4.60 -5.80 - X10*6/uL ?Hemoglobin 13.9 L 14.0-18.0 - g/dl ?Hematocrit 41.3 L 42.0-52.0 - % ?Mean Corpuscular Volume 99.5 H 80.0-98.0 - fL ?Mean Corpuscular Hemoglobin 33.5 H 27.0-33.0 - pg ?Mean Corpuscular HGB Conc 33.7 31.0-36.0 - g/dl ?Red Cell Distribution Width 14.2 11.0-16.0 - % ?Platelet Count 145 L 160-4 00 - X10*3/uL ?Mean Platelet Volume 11.0 9.4-12.4 - fL ?Neutrophils Percent Auto 45.8 45-73 - % ?Imm Gran Pct Auto 0.3 0. 0-0.4 - % ?Lymphocytes Percent Auto 41.0 H 20-40 - % ?Monocytes Percent Auto 10.2 2-11 - % ?Eosinophils Percent Auto 2.2 0-4 - % ?Basophils Percent Auto 0.5 0-2 - % ?NRBC Pct Auto 0.0 0.0-0. 2 - /100WBC ?Neutrophils Absolute Auto 3.6 2.0-8.3 - x10*3/uL ?Imm Gran Abs Auto 0.02 0. 00-0.03 - X10*3/uL ?Lymphocytes Absolute Auto 3.2 1.2-4.9 - X10*3/uL ?Monocytes Absolute Auto 0.8 0.1-1.2 - X10*3/uL ?Eosinophils Absolute Auto 0.2 0.0-0.4 - X10*3/uL ?Basophils Absolute Auto 0.0 0.0-0.2 - X10*3/uL ?NRBC Abs Auto 0.000 0.0-0. 012 - X10*3/uL ???Lab:Lipid Panel (Order Da te - 06/20/2024) (Collection Date & Time - 06/20/2024 07:30 AM) ? Value Reference Range ?Triglycerides 117 <150 - mg/dL ?Cholesterol 143 <200 - m g/dL ?LDL Cholesterol Calculated 77 <100 - mg/dL ?HDL Cholesterol 43 >40 - mg/dL ???Lab:PSA,Total (Free>4and< 10) (Order Date - 06/20/2024) (Collection Date & Time - 06/20/2024 07:30 AM) ? Value Reference Range ?PSA,Total (Free>4and<10) 0.38 0.00-4.00 - ng/mL * Examination: ???General Examination: ?GENERAL APPEARANCE:?well developed, well nourished, in no acute distress.?HEAD:?normocephalic, atraumatic.?EYES:?pupils equal, round, reactive to light and accommodation, sclera non-icteric.?EARS:?normal.?ORAL CAVITY:?mucosa moist.?THROAT:?clear.?NECK/THYROID:?neck supple, full range of motion, no cervical lymphadenopathy, no bruits.?SKIN:?warm and dry, no suspicious lesions.?HEART:?regular rate and rhythm, S1, S2 normal, no murmurs.?LUNGS:?clear to auscultation bilaterally.?ABDOMEN:?soft, nontender, nondistended, bowel sounds present, normal, no organomegaly , no masses palpable.?RECTAL EXAM:?normal tone, no external hemorrhoids, no masses palpable, prostate normal, stool guaiac negative.?MALE GENITOURINARY:?not examined.?EXTREMITIES:?no clubbing, cyanosis, or edema.?NEUROLOGIC:?nonfocal, motor strength normal upper and lower extremities, sensory exam intact.? Assessment: * Assessment: 1.?Elevated BUN - R79.9 (Diana jenise)???2.?Type 2 diabetes mellitus without complication - E11.9???3.?Essential hypertension - I10???4.?Prostatism - N40.0???5.?Pure hypercholesterolemia - E78.00???6. Colon cancer screening - Z12.11???7.?Depression screening - Z13.31???8.?Atrial fibrillation - I48.91??? Plan: * Treatment: 2.?Type 2 diabetes mellitus without complication? Continue glipiZIDE Tablet, 5 MG, TAKE 1 TABLET ONCE DAILY 30MINUTES BEFORE BREAKFAST;?Continue SITagliptin Tablet, 50 MG, 1tablets, Orally, Once a day;?Continue metFORMIN HCl Tablet, 500 MG, 1 tablet, Orally, twice a day.?? Notes: doing well on meds?? 3.?Essential hypertension? Continue Metoprolol Succinate ER Tablet Extended Release 24 Hour, 25 MG, 1 tablet, Orally, Once a day;?Continue Dilt-XR Capsule Extended Release 24 Hour, 180 MG, TAKE 1 CAPSULE BY MOUTH EVERY DAY.?? Notes: doing well on meds?? 4.?Prostatism? Continue Tamsulosin HCl Capsule, 0.4 MG, TAKE 1 CAPSULE ONCE DAILY DIRECTED.?? 5.?Pure hypercholesterolemia ? Continue Atorvastatin Calcium Tablet, 80 MG, TAKE 1 TABLET ONCE DAILY.?? 6.?Atrial fibrillation? Continue Eliquis Tablet, 5 MG, TAKE 1 TABLET TWICE A DAY.?? Notes: stable, will continue current regiment?? * Procedure Codes:?G2211 Compl ex e/m visit add on * Preventive Medicine:? ??Counseling:?Care goal follow-up plan:?Counseling for abnormal BMI provided?No.? ??Diabetes Care Plan:?Patient Lifestyle Goals?Needs to maintain diet control.?Treatment Goals?A1C< 7.?Barriers ?No specific barriers, doing well.?Self-Managment Plan?Increase light exercise to 3 times a week for 30 minutes.?Expected Outcome maintaining stable blood sugar levels within a target range.? * Follow Up:?2 Months * * The named appointment provid er may or may not be the originator of this progress note, and it is not deemed complete until electronically signed by the appointment provider. Sign off status: Pending * Provider:?Orestes Alex MD Date:?0 06/27/2024 Generated for Morelia martell/Bernardino/eTransmitting on:?07/24/2024 11:02 AM EST History and Physical Notes * HPI (History of Present Illness) Category Sub-Category Detail Notes Category Not es Depression Screening PHQ-9 Little inte rest or pleasure in doing things: Not at all Feeling down, depressed, or hopeless: No t at all Trouble falling or staying asleep, or sl eeping too much: Not at all Feeling tired or having little energy: N ot at all Poor appetite or overeating: Not at all Feeling bad about yourself o r that you are a failure, or have let yourself or your family down: Not at all Trouble concentrating on thi ngs, such as reading the newspaper or watching television: Not at all Moving or speaking so slowly that other people could have noticed; or the opposite, being so fidgety or restless that you have been moving around a lot more than usual: Not at all Thoughts that you would be b nel off or of hurting yourself in some way: Not at all Total Score: 0 Interpretation and Intervention Depression Ricardo estrella Findings: Negative Follow-Up for Depression: : review of PH Q-9 found negative result, no follow-up needed SDOH Questions SDOH Questions In the past year have you been worried about losing housing?: No In the past year have you or any family members you live with been unable to get any of the following when it was really needed? Check all that apply:: None Fall Risk History Have you had any falls with injury i n the past year?: No Have you had two or more falls in the year?: No Communication Needs Communication Needs Does the patient have a hearing impairment: Yes ?If yes, what is the hearing impairment? : Hard of hearing, Hearing Aids Does the patient have a vision impairmen t?: Yes ?If yes, what is the vision impairment?: Glasses Does the patient have a cognition impair ment?: No Examination Category Sub-Category Detail Notes Category Not es General Examination GENERAL APPEARANCE: well dev eloped, well nourished, in no acute distress HEAD: normocephalic, atrau matic EYES: pupils equal, round, reactive to light and accommodation, sclera non- icteric EARS: normal THROAT: clear NECK/THYROID: neck supple, full ra nge of motion, no cervical lymphadenopathy, no bruits HEART: regular rate and rhy thm, S1, S2 normal, no murmurs LUNGS: clear to auscultatio n bilaterally ABDOMEN: soft, nontender, non distended, bowel sounds present, normal, no organomegaly , no masses palpable NEUROLOGIC: nonfocal, motor stre ngth normal upper and lower extremities, sensory exam intact SKIN: warm and dry, no faina picious lesions EXTREMITIES: no clubbing, cyanosi s, or edema MALE GENITOURINARY: not examined RECTAL EXAM: normal tone, no exte rnal hemorrhoids, no masses palpable, prostate normal, stool guaiac negative ORAL CAVITY: mucosa moist
== END 2024-07-24 10:18 | disposition home or self-care (01) ==
LOC: HO.LNP 10:17
PROVIDERS: Visit Provider Internal Medicine
DX: R79.9 Abnormal finding of blood chemistry, unspecified (principal)
CPT/HCPCS: 82565; 84520

== ENCOUNTER 2024-10-28 14:37 | Outpatient (AMB) | payer MEDICARE, SELFPAY ==
[2024-10-27 08:40] VITALS: BP 122/60; BP 134/60; BMI 24.7
[2024-10-28 14:53] VITALS: BP 108/52; PULSE 66; BMI 22.6
--- NOTE | 2024-10-28 14:53 | MHC.OFFVIS ---
Vital Signs 10/28/24 14:53 Height 5 ft 10 in Weight 157 lb 6.561 oz BMI 22.6 BP 108/52 L Blood Pressure Location Lt brachial Position Sitting Pulse 66 Pulse Source Monitor Intake Visit Reasons: Shortness of breath Railroad Track Mechanic Required: No Electroplater Automatic: Electroplater Automatic Present Allergies No Known Allergies [No Known Allergies*] Allergy (Verified 10/28/24 14:55) Medication List - Last Reconciled 10/28/24 by Cm Rivas NP apixaban (Eliquis) 5 mg PO BID ascorbic acid (vitamin C) (Vitamin C) 500 mg PO BEDTIME atorvastatin 80 mg PO BEDTIME blood sugar diagnostic (FreeStyle Lite Strips) As directed cholecalciferol (vitamin D3) (Vitamin D3) 50 mcg PO BEDTIME coenzyme Q10 (CoQ-10) 200 mg PO BEDTIME diltiazem HCl ER 90 mg PO DAILY ferrous sulfate (FeroSul) 325 mg PO DAILY furosemide 40 mg PO DAILY glipizide 5 mg PO BIDWM mlpvupes-njhun-ijgqv-CF borate 750 mg-100 mg- 1.65 mg-108 mg ([facility] [employer]) 2 tabs PO BID levothyroxine 125 mcg PO DAILY@0600 metformin 1,000 mg PO BID metoprolol succinate ER 25 mg PO BEDTIME omega 4-pgz-tfr-fish oil 1,000 (120-180) mg (Fish Oil) 1 cap PO DAILY tamsulosin 0.4 mg PO BEDTIME HPI Comments Details: This is an 89-year-old male presenting with complaints of shortness of breath. Patient with medical history of hypertension, atrial flutter, and severe aortic stenosis status post TAVR. The patient reports experiencing significant shortness of breath with exertion over the past few days. He denies any associated symptoms such as exertional chest pain, palpitations, dizziness, orthopnea, PND, leg edema, presyncope, or syncope. He states he is compliant with all his prescribed medications. [facility] Medical History Hypercalcemia TAYLOR (acute kidney injury) Acute hyperglycemia HTN (hypertension) Aortic stenosis Arthritis of right knee Calcific tendinitis of left shoulder Orthostasis (~2014) Diabetes mellitus (~2014) Knee effusion (~11/15/14) Hyperlipidemia (~2012) Hypothyroidism (~2012) Surgical History S/P TAVR (transcatheter aortic valve replacement) S/P wrist surgery History of cardiac cath Family History Father No problems noted. 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 Review of Systems ENT Reports dizziness Card Denies chest pain, Denies chest pain at rest, Denies chest pain with activity, Denies rapid heart rate, Denies pedal edema, Denies edema, Denies leg edema, Denies lightheadedness, Denies palpitations, Denies dyspnea, Denies dyspnea on exertion and Denies orthopnea Resp Denies cough, Denies dyspnea and Denies dyspnea on exertion GI Denies hematochezia and Denies change in stool character Musc Denies abnormal gait, Reports limited range of motion, Reports muscle cramps, Denies muscle weakness, Denies numbness, Denies radiating pain into limb, Denies stiffness and Denies tingling Neuro Denies abnormal gait, Reports dizziness, Denies numbness and Denies tingling Endo Denies palpitations Physical Exam Vital Signs: Last Vital Signs Pulse 66 10/28/24 14:53 BP 108/52 L 10/28/24 14:53 BMI result Body Mass Index 22.6 Const General: cooperative, healthy appearing, comfortable and no acute distress Orientation/consciousness: patient oriented x3 HEENT Head: Yes normal to inspection Neck Neck: Yes normal visual inspection, Yes trachea midline and Yes supple Chest Chest palpation & inspection: normal inspection of the chest Resp Effort & Inspection: normal respiratory effort Auscultation: clear to auscultation bilaterally, crackles on the right at the base, no rales, no rhonchi and no wheezes Cardio Jugular venous distension: no JVD Palpation: normal PMI Rate: regular rate Rhythm: abnormal rhythm irregularly irregular Heart sounds: S1 normal heart sound present, S2 normal heart sound present, no click, no gallops, Murmur heart sound present systolic at the right sternal border and no rubs Peripheral pulses: Peripheral pulses 2+ throughout GI Inspection: Yes normal to inspection Palpation (GI): Soft to palpation Auscultation: normal bowel sounds Skin General skin exam: no rashes or lesions noted Neuro General: patient oriented x3 Extrem General: Yes normal to inspection, No no pedal edema and No calf tenderness Psych Appearance: grossly normal Mental Status: mental status grossly normal Speech and movement: Normal speech and movement present Office Procedures EKG Details: EKG today showed atrial flutter with variable AV block, rate 66 beats per minute, left anterior fascicular block. 61784-Mkvmafjhoeyiyagry, Complete Assessment & Plan Assessment & Plan (1) SOB (shortness of breath): Code(s): R06.02 - Shortness of breath Category: Medical Plan: 02/19/2024-echo study showed normal LV systolic function with the ejection fraction between 55-60%, with normal functioning of the bioprosthetic aortic valve. On exam today patient had some crackles to the right base. Patient also sounding a little congested. No leg swelling noted. We will get a chest x-ray and try to move the echo date to sooner time. Advised low-salt diet, daily weight monitoring, compression socks, med compliance, and fluid restriction at 1.5-2 L daily. (2) S/P TAVR (transcatheter aortic valve replacement): Code(s): Z95.2 - Presence of prosthetic heart valve Category: Surgical Plan: As above. (3) Atrial flutter: Code(s): I48.92 - Unspecified atrial flutter Category: Medical Plan: Chronic atrial flutter. Continue Eliquis for full anticoagulation therapy. Continue metoprolol and diltiazem for rate control approach. Labs monitored periodically. (4) HTN (hypertension): Code(s): I10 - Essential (primary) hypertension Category: Medical Plan: Blood pressure today is well-controlled. Continue current regimen. Advised monitoring blood pressures at home and maintaining a log. Ideally, blood pressure goal less than 130/80. We will follow-up via phone based on findings. Patient follow up in 3 months, sooner if needed. In the interim, patient will call us with any concerns or change in symptoms. This note was generated using voice recognition software. While every effort has been made to ensure accuracy and proper cartridge assembler, there may be occasional errors that could affect the content or meaning of the described symptoms. Orders: Orders AMB EKG-In Office Today I48.92 - Unspecified atrial flutter CA echo transthoracic complete Today Z95.2 - Presence of prosthetic heart valve XR chest 2V Today R06.02 - Shortness of breath Coding Level of Care Code Est Pt Level 4 (17436) Complex EM visit Add On G2211 Diagnoses SOB (shortness of breath) R06.02 S/P TAVR (transcatheter aortic valve replacement) Z95.2 Atrial flutter I48.92 HTN (hypertension) I10 CPT Codes EKG - CPT: 55872-Odovugeykwvevylxl, Complete ([id number]) Time Spent (min) 32 Comment Time spent in reviewing the chart, test results, assessment, counseling and documentation.
--- OUTSIDE RECORDS SUMMARY | 2024-10-28 15:58 | XMS_ITS | Patient Health Record ---
Author Organization [facility] Address [address] [facility] [place] [address] Care Team Providers Care Field Crop Farm Worker Name Role Phone Orestes Alex MD Primary Care Provider Yakelin Hernández, Xenia Unavailable [phone] Allergies Allergen (clinical drug ingredient) Drug/Non Drug [...] Problem Acquired hammer toe of right foot (955698156236418 5) Other hammer toe(s) (acquired), right foot (M20.41) Active confirmed Problem Acquired hammer toe of left foot (144888287413575 3) Other hammer toe(s) (acquired), left foot (M20.42) Active confirmed Problem Type II diabetes mellitus without complication (878019793) Type 2 diabetes mellitus without complications (E11.9) Active confirmed Problem Acquired deformity of right foot (064775007427469 00) 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) Active confirmed Problem Acquired deformity of left foot (543474710413969 04) PlantarFlexion of metatarsal of left foot (M21.6X2) Active confirmed Vital Signs Blood pressure diastolic 67 mm Hg 05/26/2024 Height 5 ft 10 in in 05/26/2024 Blood pressure systolic 157 mm Hg 05/26/2024 Weight 155 lbs 05/26/2024 BMI 22.24 kg/m2 05/26/2024 Procedures Procedure Date Ordered Date Performed Result Body Sit e 24003-MTKQBEU NAIL, 6 OR MORE 02/14/2024 N/A 42244-OMSJVDR NAIL, 6 OR MORE 05/26/2024 N/A 17473-Aulsevbv Plate 05/26/2024 N/A 59441-Kuzusatg Plate Each Additional 05/26/2024 N/A Encounters Encounter Location Date Provider [facility] [address] 02/14/2024 Xenia Black Tinea unguium B35.1 ; Type 2 diabetes mellitus without complications E11.9 ; Pain in right toe(s) M79.674 and Pain in left toe(s) M79.[address] [address] 05/26/2024 Xenia Black Tinea unguium B35.1 ; Ingrown nail L60.0 ; Type 2 diabetes mellitus without complications E11.9 ; Pain in right toe(s) M79.674 and Pain in left toe(s) M79.[address] [address] 02/14/2024 Xenia Black Assessments Encounter Date Diagnosis (ICD Code) Assessment [...] X ray : Foot, right 3V 02/26/2013 57315-PESVXUD NAIL, 6 OR MORE 04/30/2017 82193-FAFIJKA NAIL, 6 OR MORE 06/18/2017 06997-OZQDIRC NAIL, 6 OR MORE 02/28/2018 82222-JCYNAJA NAIL, 6 OR MORE 05/27/2018 37360-LTDJNZW NAIL, 6 OR MORE 08/26/2018 68278-OFTFYDQ NAIL, 6 OR MORE 11/14/2018 84409-SHGRUAX NAIL, 6 OR MORE 02/13/2019 48952-MTYRVVD NAIL, 6 OR MORE 05/19/2019 86105-BVVEQZE NAIL, 6 OR MORE 10/16/2019 52397-SOJPTBS NAIL, 6 OR MORE 01/22/2020 13884-UNSJZSB NAIL, 6 OR MORE 04/26/2020 30445-VFQKRTT NAIL, 6 OR MORE 08/02/2020 41543-JFGQJAK NAIL, 6 OR MORE 10/28/2020 60749-RJSDPHK NAIL, 6 OR MORE 01/27/2021 08228-DDMNMOT NAIL, 6 OR MORE 05/09/2021 59758-HSQGWXV NAIL, 6 OR MORE 08/25/2021 60093-DZYNIOQ NAIL, 6 OR MORE 03/09/2022 80264-MULNHVY NAIL, 6 OR MORE 06/22/2022 82938-UENWVWW NAIL, 6 OR MORE 10/23/2022 80692-KUBKZDV NAIL, 6 OR MORE 11/28/2021 55848-JUBRQPF NAIL, 6 OR MORE 02/22/2023 90115-DFEBRSH NAIL, 6 OR MORE 07/19/2023 19188-ATXIVMC NAIL, 6 OR MORE 10/25/2023 21128-PFPSMHP NAIL, 6 OR MORE 02/14/2024 91652-DAWTTRG NAIL, 6 OR MORE 05/26/2024 74312-Wfextrgl Plate 05/26/2024 82940-Eualdzql Plate 10/25/2023 62359-Uflqpmos Plate 07/19/2023 82816-Ixxpybbj Plate 02/22/2023 71320-Tkdogzac Plate 11/28/2021 78995-Mkeqegeb Plate 08/25/2021 45010-Ntjaiamw Plate 10/28/2020 16954-Aquzkvjt Plate Each Additional 51606 I&D ABSCESS- SIMPLE,SINGLE 022 48946 I&D ABSCESS- SIMPLE,SINGLE 021 97477 I&D ABSCESS- SIMPLE,SINGLE 021 38470-Lrhd. Subungual Hematoma 9 Nail Panel 04/30/2017 Next Appt Details Provider Name:Xenia Hernández , 12/04/2024 01:00:00 PM, [address] [place], [address], Insurance Providers Payer Name Payer Address Payer Phone Subscriber Number Group Number Insured Name Patient Relationship to Insured Coverage Start Date Coverage End Date Medicare National [employer]t [employer] [address] [facility] [place] [address] [id number] Richard Chávez Self - patient is the insured 1 [employer] [facility] [address] [place] [address] [id number] Richard Chávez Self - patient is the insured Medical (General) History Medical History History ICD Code thyroid disorder chicken pox measles mumps joint implants/screws Warts Back,Hip,and Knee pain Cataracts Diabetic Gout Surgical History Surgery Date(Month/Year) finger surgery 2009 Thumb Surgery 2013 nose L side 2016 biopsy on face spot 10/25/20 aortic valve replacement 01/2022
--- OUTSIDE RECORDS SUMMARY | 2024-10-28 15:58 | XMS_ITS ---
Author Organization [facility] Address [address] [place] [address] Care Team Providers Care Glass Ribbon Machine Operator Name Role Phone Orestes Alex MD Primary Care Provider Xenia Rojas [phone] Mark Encounters Encounter Location Date Provider Diagnosis [address] [address] 09/01/2024 Xenia Hernández Plan Of Treatment Next Appt Details Provider Name:Xenia Hernández , 12/04/2024 01:00:00 PM, [address] [place] [address], [phone], Progress Notes * Richard CAT WDOB:1935 (89 yo M)Acc No.[id number]:09/01/2024 Progress Note Patient:?Richard CAT Provider:?Xenia Hernández DPM :1935???Age:89 Y???Sex:Male Wayne e:09/01/2024 Address:[address] [place] Pcp:Orestes Alex MD Subjective: * Chief Complaints: * ???1. Dr Mark. * Medical History:? Objective: * Vitals:? Assessment: Plan: * Treatment: * Images: * The named appointment provid er may or may not be the originator of this progress note, and it is not deemed complete until electronically signed by the appointment provider. Sign off status: Pending * Provider:Letty Hernández DPM Date:?2024 Generated for Morelia martell/Bernardino/Delia on:?10/28/2024 03:58 PM EDT
--- OUTSIDE RECORDS SUMMARY | 2024-10-28 15:58 | XMS_ITS ---
Author Organization Orestes Alex MD Address [address] [place], [place] [id number] Care Team Providers Care Electricity Trading Analyst Name Role Phone Orestes Alex Primary Care Provider Allergies No Known Allergies Results Component Value Reference Range Notes Glucose, finger stick Reviewed date:08/25/2024 01:00:35 PM Interpretation: Performing Lab: Notes/Report: Value 128 REASON FOR VISIT 2 MO F/U Medications Medication SIG (Take, Route, Frequency, Duration) Notes Start Date End Date Status Tamsulosin HCl 0.4 MG TAKE 1 CAPSULE ONC E DAILY DIRECTED Active Dilt-XR 180 MG TAKE 1 CAPSULE BY MO UTH EVERY DAY Active Eliquis 5 MG TAKE 1 TABLET TWICE A DAY Active Amoxicillin 500 MG TAKE 4 CAPSULES BY M OUTH 1 HOUR BEFORE DENTAL APPOINTMENT FOR 1 DAY for 1 Active Levothyroxine Sodium 125 MCG TAKE 1 TABLET EVERY MORNINGON AN EMPTY STOMACH for 90 Active Atorvastatin Calcium 80 MG TAKE 1 TABLET ONCE DAILY Active Metoprolol Succinate ER 25 MG 1 tablet Orally Once a day Active Furosemide 40 MG TAKE 1 TABLET BY ETELVINA TH EVERY DAY for 30 Active FreeStyle Lancets - USE TO TEST BLOOD SAINZ GAR FOUR TIMES DAILY for 90 Active FreeStyle Lite Test - USE TO TEST BLOOD SUGAR FOUR TIMES DAILY for 100 Active FeroSul 325 (65 Fe) MG TAKE 1 TABLET BY MOUTH EVERY DAY for 90 Active Accu-Chek Suzanne Plus 0 DIRECTED DAILY IN VITRO 90 Active SITagliptin 50 MG 1tablets Orally Once a day Active glipiZIDE 5 MG TAKE 1 TABLET ONCE D AILY 30MINUTES BEFORE BREAKFAST Active metFORMIN HCl 500 MG 1 tablet Orally twi ce a day Active Problems Problem Type SNOMED Code ICD Code Onset Dates Problem Status W/U Status Risk Notes Problem Insomnia (G47.00) Active confirmed Vital Signs Blood pressure systolic 128 mm Hg 08/26/19 25 Blood pressure diastolic 66 mm Hg 025 Height 67 in 08/25/2024 Weight 164 lbs 08/25/2024 BMI 25.68 kg/m2 08/25/2024 Encounters Encounter Location Date Provider Diagnosis Orestes Alex MD [address] [place] [phone] 08/25/2024 Orestes Alex Type 2 diabetes mellitus without complication E11.9 and Insomnia G47.00 Assessments Encounter Date Diagnosis (ICD Code) Assessment Notes Treatment Notes Treatment Clinical Notes Section Notes 08/25/2024 Type 2 diabetes mellitus without complication (ICD-10 - E11.9) doing well on meds, will continue current regiment 08/25/2024 Insomnia (ICD-10 - G47.00) sleeps 2 hours in the afternoon and then can't sleep at night. advised to only sleep for 20 mins Plan Of Treatment Medication Medication Name Sig Start Date Stop Date Notes SITagliptin 50 MG 1tablets Orally Once a day glipiZIDE 5 MG TAKE 1 TABLET ONCE D AILY 30MINUTES BEFORE BREAKFAST metFORMIN HCl 500 MG 1 tablet Orally twice a day Treatment Notes Assessment Notes Type 2 diabetes mellitus wit hout complication doing well on meds, will continue curren t regiment Insomnia sleeps 2 hours in th e afternoon and then can't sleep at night. advised to only sleep for 20 mins Next Appt Details Follow Up: 3 Months, Reason: Provider Name:Orestes javier, 11/28/2024 08:00:00 AM, [address], [address], [place], [phone], Provider Name:Orestes javier, 12/04/2024 01:45:00 PM, [address], [address], [place], [phone], Provider Name:Orestes javier, 06/26/2025 07:15:00 AM, [address], [address], [place], [phone], Provider Name:Orestes silvar, 07/03/2025 01:30:00 PM, [address], [address], [place], [phone], Progress Notes * Delia CAT WDOB:1935 (89 yo M)Acc No.[id number]:08/25/2024 Progress Notes Patient:?Delia CAT W Provider:?Orestes Alex MD :1935???Age:89 Y???Sex:Male Wayne e:08/25/2024 Address:[address] [place] [address], [place], [id number] Subjective: * Chief Complaints: * ???2 MO F/U * HPI: ???Symptom(s):? patient is a 89 yo male here for 2 month follow up visit. * ROS:?General/Constitutional:?Denies?Chills.?Denies?Fatigue.?Denies?Fever.?Denies?Headache.?ENT:?Patient denies?decreased sense of smell, any loss of taste, sore throat.?Denies?Sore throat.?Respiratory:?Denies?Cough.?Denies?Shortness of breath at rest.?Gastrointestinal:?Denies?Diarrhea.?Denies?Nausea.?Musculoskeletal:?Patient denies?muscle aches.?Peripheral Vascular:?Patient denies?red and blue toes.? * Medical History:? * Surgical History:? * Hospitalization/Major Diagno stic Procedure:? * Medications:?TakingAccu-Chek Suzanne Plus 0 Strip DIRECTED DAILY IN VITRO 90 FeroSul 325 (65 Fe) MG Tablet TAKE 1 TABLET BY MOUTH EVERY DAY Furosemide 40 MG Tablet TAKE 1 TABLET BY MOUTH EVERY DAY FreeStyle Lite Test - Strip USE TO TEST BLOOD SUGAR FOUR TIMES DAILY FreeStyle Lancets - Miscellaneous USE TO TEST BLOOD SUGAR FOUR TIMES DAILY Metoprolol Succinate ER 25 MG Tablet Extended Release 24 Hour 1 tablet Orally Once a day Atorvastatin Calcium 80 MG Tablet TAKE 1 TABLET ONCE DAILY Dilt-XR 180 MG Capsule Extended Release 24 Hour TAKE 1 CAPSULE BY MOUTH EVERY DAY Tamsulosin HCl 0.4 MG Capsule TAKE 1 CAPSULE ONCE DAILY DIRECTED glipiZIDE 5 MG Tablet TAKE 1 TABLET ONCE DAILY 30MINUTES BEFORE BREAKFAST SITagliptin 50 MG Tablet 1tablets Orally Once a day metFORMIN HCl 500 MG Tablet 1 tablet Orally twice a day Eliquis 5 MG Tablet TAKE 1 TABLET TWICE A DAY Levothyroxine Sodium 125 MCG Tablet TAKE 1 TABLET EVERY MORNINGON AN EMPTY STOMACH Amoxicillin 500 MG Capsule TAKE 4 CAPSULES BY MOUTH 1 HOUR BEFORE DENTAL APPOINTMENT FOR 1 DAY Medication List reviewed and reconciled with the patientTaking Accu-Chek Suzanne Plus 0 Strip DIRECTED DAILY IN VITRO 90 Taking FeroSul 325 (65 Fe) MG Tablet TAKE 1 TABLET BY MOUTH EVERY DAY Taking Furosemide 40 MG Tablet TAKE 1 TABLET BY MOUTH EVERY DAY Taking FreeStyle Lite Test - Strip USE TO TEST BLOOD SUGAR FOUR TIMES DAILY Taking FreeStyle Lancets - Miscellaneous USE TO TEST BLOOD SUGAR FOUR TIMES DAILY Taking Metoprolol Succinate ER 25 MG Tablet Extended Release 24 Hour 1 tablet Orally Once a day Taking Atorvastatin Calcium 80 MG Tablet TAKE 1 TABLET ONCE DAILY Taking Dilt-XR 180 MG Capsule Extended Release 24 Hour TAKE 1 CAPSULE BY MOUTH EVERY DAY Taking Tamsulosin HCl 0.4 MG Capsule TAKE 1 CAPSULE ONCE DAILY DIRECTED Taking glipiZIDE 5 MG Tablet TAKE 1 TABLET ONCE DAILY 30MINUTES BEFORE BREAKFAST Taking SITagliptin 50 MG Tablet 1tablets Orally Once a day Taking metFORMIN HCl 500 MG Tablet 1 tablet Orally twice a day Taking Eliquis 5 MG Tablet TAKE 1 TABLET TWICE A DAY Taking Levothyroxine Sodium 125 MCG Tablet TAKE 1 TABLET EVERY MORNINGON AN EMPTY STOMACH Taking Amoxicillin 500 MG Capsule TAKE 4 CAPSULES BY MOUTH 1 HOUR BEFORE DENTAL APPOINTMENT FOR 1 DAY Medication List reviewed and reconciled with the patient * Allergies:?N.K.D.A.yes[Aller gies Verified] Objective: * Vitals:?Ht: 67, Wt: 164, BMI :25.68, BP:128/66, Wt-k.39. * Examination: ???General Examination: ?GENERAL APPEARANCE:?alert, well hydrated, in no distress, elderly, male.?HEAD:?normocephalic.?SKIN:?good turgor.?HEART:?no murmurs, rubs, gallops, regular rate and rhythm.?LUNGS:?no wheezes, rales, rhonchi, good air movement, clear to auscultation bilaterally.? Assessment: * Assessment: 1.?Type 2 diabetes mellitus without complication - E11.9 (Primary)???2.?Insomnia - G47.00??? Plan: * Treatment: ? Value Reference Range ?Value 128 Notes: doing well on meds, will continue current regiment??2.?Insomnia? Notes: sleeps 2 hours in the afternoon and then can't sleep at night. advised to only sleep for 20 mins?? * Procedure Codes:?23992 ASSAY , GLUCOSE, BLOOD QUANT, Modifiers: QW * Follow Up:?3 Months * * Sign off status: Completed true * Provider:?Orestes Alex MD Date:?0 08/25/2024 Generated for Morelia martell/Bernardino/Reynaitting on:?10/28/2024 03:58 PM EDT History and Physical Notes * HPI (History of Present Illness) Category Sub-Category Detail Notes Category Not es Symptom(s) patient is a 89 yo male here for 2 month follow up visit Examination Category Sub-Category Detail Notes Category Not es General Examination GENERAL APPEARANCE: alert, w ell hydrated, in no distress, elderly, male HEAD: normocephalic HEART: no murmurs, rubs, ga llops, regular rate and rhythm LUNGS: no wheezes, rales, r honchi, good air movement, clear to auscultation bilaterally SKIN: good turgor
--- OUTSIDE RECORDS SUMMARY | 2024-10-28 15:58 | XMS_ITS ---
Author Organization [facility] Address [address] [address] Care Team Providers Care Financial Analysis Advisor Name Role Phone Isai DAVILA, Orestes Primary Care Provider Yakelin Hernández, Xenia Unavailable [phone] Allergies Allergen (clinical drug ingredient) Drug/Non Drug [...] Ordered Date Performed Result Body Sit e 47671-PEOBEYX NAIL, 6 OR MORE 05/26/2024 N/A 35457-Sbmyrsyr Plate 05/26/2024 N/A 34227-Kauhibcz Plate Each Additional 05/26/2024 N/A Encounters Encounter Location Date Provider Diagnosis [facility] [address] [place] [address] 05/26/2024 Xenia Black Tinea unguium B35.1 ; [...] Treatment Pending Test Test Name Order Date 75365-DJTKGHF NAIL, 6 OR MORE 05/26/2024 71031-Vaiewtoe Plate 05/26/2024 37930-Eyajemqa Plate Each Additional Next Appt Details Follow Up: 2 Weeks,prn, Shara on: Provider Name:Xenia Hernández , 12/04/2024 01:00:00 PM, [address] [place] [address], [phone], Procedure Notes * Category Sub-Category Detail Notes [...] and future surgical procedures to prevent recurrence (58397/32), DIABETES: Matricectomy deferred at this time due [...] use of a nail nipper and/or dremel-type grinder watch parts, to a more viable healthy nail plate [...] to maintain effectiveness in symptomatic relief - 99668 Progress Notes * Richard CAT WDOB:1935 (88 yo M)Acc No.[id number]:05/26/2024 Progress Note Patient:?Richard CAT Provider:?Xenia Hernández DPM :1935???Age:88 Y???Sex:Male Wayne e:05/26/2024 Address:[address] [place] [address] , [facility] [place], [phone] Pcp:Orestes Alex MD Subjective: * Chief Complaints: [...] kg. * ???Past Orders: Lab:HEMOGLOBIN A1C (GLYCOHEM OGCHARLENEBIN) * Collection Date 06/20/2024 01/28/2024 Collection Time 07:48 PM 02:51 PM Order Date 01/28/2024 01/28/2024 HEMOGLOBIN A1C % (HH) 6.4 NR TOTAL HEMOGLOBIN (HGBA1C) NR 6.4 * Examination: ???Ophthalmology Referral: ?DIABETES EYE EXAM?Procedure Performed:?Yes ?Date of Exam Performed?04/28/2024 ?Diabetic Retinopathy Screening:?Yes ?Findings of Diabetic Eye Exam:?no retinopathy?Nails: ?NAILS are:?elongated,overgrown,dystrophic,greater than 3mm thick,discolored and friable [...] for office visit today.?ORIENTED:?person, place, and time.?FOOT EXAM:?Lower Extremity Neurological Exam performed:?Yes ?Visual exam of foot performed:?Yes ?Date?05/26/2025 ?Sensory testing performed:?sensations diminished ?Sensory and motor testing performed:?sensations diminished ?Pedal pulse taking performed:?1+ ?Footwear Evaluation?Footwear Evaluation performed:?Yes?Orthopedic: ?FOOTWEAR:?good condition.? Assessment: * Assessment: 1.?Tinea unguium - B35.1???2 .?Ingrown nail - L60.0 (Primary)???3.?Type 2 diabetes mellitus without complications - E11.9???4.?Pain in right toe(s) - M79.674???5.?Pain in left toe(s) - M79.675??? Plan: * Treatment: 2.?Tinea unguium?Procedure: 02069-PYAOFIV NAIL, 6 OR MORE * Procedures:?Debride Nail [...] use of a nail nipper and/or dremel-type grinder watch parts, to a more viable healthy nail plate [...] to maintain effectiveness in symptomatic relief - 08843.?Nail Avulsion:?Location?Bilateral nail border, T1, T6.?Anesthesia?, was accomplished [...] and future surgical procedures to prevent recurrence (18483/32), DIABETES: Matricectomy deferred at this time due to diabetes risk.? * Procedure Codes:?22870 DEBRI DE NAIL, 6 OR [id number] Avulsion Plate, Modifiers: T1 61799 Avulsion Plate Each Additional, Modifiers: T6 * [...] Hernández DPM Date:?2023 Generated for Morelia martell/Bernardino/Delia on:?10/28/2024 03:58 PM EDT History and Physical [...] paresthesia, tingling, B/L Dermatologic SKIN FINDINGS: Orthopedic FOOTWEAR EVALUATION: good condition General Examination GENERAL APPEARANCE: Reveals [...]
--- OUTSIDE RECORDS SUMMARY | 2024-10-28 15:58 | XMS_ITS ---
Author Organization Orestes Alex MD Address [address] [place] [phone] Care Team Providers Care Sports Management Intern Name Role Phone Orestes Alex Primary Care Provider REASON FOR VISIT refill Medications Medication SIG (Take, Route, Fr equency, Duration) Notes Start Date End Date Status FeroSul 325 (65 Fe) MG TAKE 1 TABLET BY MOUTH EVERY DAY Orally for 90 days Active Encounters Encounter Location Date Provider Diagnosis Orestes Alex MD [address] [place], [place] [phone] 10/02/2024 Orestes Alex Plan Of Treatment Medication Medication Name Sig Start Date Stop Date Notes FeroSul 325 (65 Fe) MG TAKE 1 TABLET BY MOUTH EVERY DAY Orally for 90 days Next Appt Details Provider Name:Orestes javier, 11/28/2024 08:00:00 AM, [address], [address], [place], [place], [phone], Provider Name:Orestes Linda ier, 12/04/2024 01:45:00 PM, [address], [address], [place], [phone], Provider Name:Orestes Linda ier, 06/26/2025 07:15:00 AM, [address], [place], [phone], Provider Name:Orestes Linda ier, 07/03/2025 01:30:00 PM, [address], [address], [place], [phone], Progress Notes * Delia CAT WDOB:1935 (89 yo M)Acc No.[id number]:10/02/2024 Patient:?Delia CAT W :1935???Age:89 Y???Sex:Male Address:[address] [place] [address], [place] [address] * Refills? Refill FeroSul Tablet, 325 (65 Fe) MG, Orally, 90, TAKE 1 TABLET BY MOUTH EVERY DAY, 90 days, Refills=3 * true * Date:? Generated for Morelia martell/Bernardino/eTransmitting on:?10/28/2024 03:58 PM EDT
--- OUTSIDE RECORDS SUMMARY | 2024-10-28 15:58 | XMS_ITS | Continuity of Care Document ---
Author Organization [facility] Address [address] [place] [address] Phone Care Team Providers Care Precipitator Supervisor Name Role Phone BEVERLY DAVILA [facility], [place] Unavailable Unavailable Procedures Procedure Date STRESS ECHO W/PHY SUP/REPT DOPPLER ECHO EXAM, HEART DOPPLER COLOR FLOW ADD-ON Advance Directives Directive Yes / No Effective Date File Name No Information Encounters Encounter Description Practice Location Reason(s) For Visit Diagnoses Date Provider Providers Copied on Encounter [facility], [address], [place], [address], [place] tel:[phone] [facility] Office No Information BEVERLY DAVILA [facility] [place]. [address], [facility], [place], [place], [id number], [place]. tel:[phone] [facility], [address], [place], [address], [place] tel:[phone] [facility] Office Shortness of Breath [facility]EVERLY DAVILA [facility] [place]. [address], [facility], [place], [place], [id number], [place]. tel:[phone] Referring Provider: Cherie Badillo NP [facility], [address] [facility], [place], [address]. tel:[phone] Family History Family Member Type Diagnosis Age At Onset No Information Payers Payer name Insurance type Covered constitution party ID Authorgricel lora(s) Medicare Part B [id number] [facility] Out Of Area [id number] Social History Type Description Quantity Date Captured [...]
--- OUTSIDE RECORDS SUMMARY | 2024-10-28 15:58 | XMS_ITS ---
Author Organization Orestes Alex MD Address [address] [place] [phone] Care Team Providers Care Meter Installer And Remover Name Role Phone Orestes Alex Primary Care Provider REASON FOR VISIT BUN, CREATININE Encounters Encounter Location Date Provider Diagnosis Orestes Alex MD [address] [place] [phone] 07/24/2024 Orestes Alex Elevated BUN R79.9 Assessments Encounter Date Diagnosis (ICD Code) Assessment Notes Treatment Notes Treatment Clinical Notes Section Notes 07/24/2024 Elevated BUN (ICD-10 - R79.9) Plan Of Treatment Pending Test Test Name Order Date Blood Urea Nitrogen 07/24/2024 Creatinine 07/24/2024 Next Appt Details Provider Name:Orestes javier, 11/28/2024 08:00:00 AM, [address], [address] [facility], [place], [place], [phone], Provider Name:Orestes javier, 12/04/2024 01:45:00 PM, [address], [address], [place], [phone], Provider Name:Orestes Linda ricardor, 06/26/2025 07:15:00 AM, [address], [address], [place], [phone], Provider Name:Orestes Linda ricardor, 07/03/2025 01:30:00 PM, [address], [address], [place], [phone], Progress Notes * Delia CAT WDOB:1935 (89 yo M)Acc No.[id number]:07/24/2024 Progress Note Patient:?Delia CAT Provider:?Orestes Alex MD :1935???Age:88 Y???Sex:Male Wayne e:07/24/2024 Address:[address] [place] [address], [facility] [place], [id number] Subjective: * Chief Complaints: * ???1. BUN, CREATININE. * Medical History:? Objective: * Vitals:? Assessment: * Assessment: 1.?Elevated BUN - R79.9 (Diana burden)??? Plan: * Treatment: * Procedure Codes:?96565 VENIP UNCT, ROUTINE* * * The named appointment provid er may or may not be the originator of this progress note, and it is not deemed complete until electronically signed by the appointment provider. Sign off status: Pending * Provider:?Orestes Alex MD Date:?0 07/24/2024 Generated for Morelia martell/Bernardino/eTmikysmitting on:?10/28/2024 03:57 PM EDT
--- OUTSIDE RECORDS SUMMARY | 2024-10-28 15:58 | XMS_ITS | Patient Health Record ---
Author Organization [facility] Address [address] [place] [address] Care Team Providers Care Government Affairs Director Name Role Phone Orestes Alex MD Primary Care Provider [address] Unavailable [phone] Allergies Allergen (clinical drug ingredient) Drug/Non Drug Allergy documented on EMR Reaction Allergy Type Onset Date Status bee stings (uncoded) swells Allergy Active Reason For Referral No Information Medications Medication [...] Centrum Silver 1 1 tablet Orally ev sunday Active CoQ10 200 MG 1 capsule with [...] 1 tablet Orally Once a day Active Immunizations Vaccine Route Administration Date Status Comme nts Flu vaccine no Preserv 3 and > Unknown 03/08/2015 Admin istered Influenza Unknown 02/09/2018 Administered Influenza Unknown 03/02/2021 Administered Social History Alcohol Screen Question Answer Notes Did you have a drink containing alcohol in the p ast year? No Points 0 Interpretation Negative Section Notes: Nonsmoker; no sig alcohol Nonsmoker; no sig alcohol Nonsmoker; no sig alcohol Problems Problem Type SNOMED Code ICD Code Onset Dates Problem Status W/U Status Risk Notes Problem 13624034 Rectal bleeding (K62.5) Active confirmed Problem 25036627 Change in bowel function (R19.4) Active confirmed Problem Anemia (D64.9) Active confirmed Problem 11857827 Constipation, unspecified constipation type (K59.00) Active confirmed Problem 188085043 Anemia, unspecified type (D64.9) Active confirmed Plan Of Treatment Pending Test Test Name Order Date IRON [...] Date MEDICARE OF [place] [address] [place] [phone] [id number] DELIA CAT Self - patient is the insured [employer] ATT[employer] CLAIMS [address] [place] [address] [id number] DELIA CAT Self - patient is the insured Medical (General) History Medical History History ICD Code Colonoscopy 10-06-2007 and 97--negative except diverticulosis and internal hemorrhoids; 3 negative Hemoccult cards in 01/2016 Hyperlipidemia BPH Denies [place],CVA,Lung disease,renal disease NIDDM Hypothyroidism Colonoscopy 01/2019 several small tubular adenomas removed Surgical History Surgery Date(Month/Year) Thumb surgery 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
--- OUTSIDE RECORDS SUMMARY | 2024-10-28 15:59 | XMS_ITS | Patient Health Record ---
Author Organization Orestes Alex MD Address [address] [place], [place] [id number] Care Team Providers Care Country Manager Name Role Phone Orestes Alex Primary Care Provider [phone] Allergies No Known Allergies Results Component Value Reference Range Notes Hemoglobin A1c Reviewed date:01/28/2024 10:28:34 AM Interpretation: Performing Lab: Notes/Report: Hemoglobin A1c 9.1 Complete Blood Count Auto Di ff Reviewed date:06/20/2024 05:40:23 PM Interpretation: Performing Lab:[facility], [address] [place] [id number] Notes/Report: White Blood Count 7.8 4.8-10.8 X10*3/uL [...] NRBC Abs Auto 0.000 0.0-0.012 X10*3/uL Comprehensive [place]. Panel Fa st Reviewed date:06/27/2024 01:10:00 PM Interpretation:[place] 06/27/24 Performing Lab:[facility], [address] [place] [phone] Notes/Report: Sodium 142 135-145 mmol/L Potassium 4.3 [...] Panel Reviewed date:06/20/2024 05:16:22 PM Interpretation: Performing Lab:[address] [phone] Notes/Report: Triglycerides 117 <150 mg/dL Desirable Triglyceride: [...] (Free>4and<10) Reviewed date:06/20/2024 05:11:58 PM Interpretation: Performing Lab:[address] [address] Notes/Report: PSA,Total (Free>4and<10) 0.38 0.00-4.00 ng/mL A [...] between 4.0 and 10.0 ng/mL. PSA methodology: Modify i Chemiluminescent Microparticle Immunoassay (CMIA) Microalbumin, Random Reviewed date:06/20/2024 05:11:49 PM Interpretation: Performing Lab:[facility], [address] [place] [phone] Notes/Report: Creatinine Urine 93.86 Microalbumin Urine 107.0 Microalbum/Creatinine Ratio Ur 113.9 <30 ug/mg cr Albumin/Creatinine Ratio Reference Ranges: Normal: < 30 ug/mg creatinine Microalbuminuria: 30 - 300 ug/mg creatinine Clinical Albuminuria: > 300 ug/mg creatinine Hemoglobin A1c Reviewed date:06/20/2024 05:12:06 PM Interpretation: Performing Lab:[facility], [address] [place] [phone] Notes/Report: Hemoglobin A1c % 7.3 <6.0 % [...] average glucose, using the formula of the M4F-Vjdjspj Average Glucose study (ADAG), Diabetes Care, Vol.31,#8, Jan. 2007 UA ClnCatch+Micro w/rflx Cul t Reviewed date:06/20/2024 05:38:57 PM Interpretation: Performing Lab:[facility], [address] [place] [phone] Notes/Report: Urine, Clean Catch Color Urine Yellow Appearance Urine Clear PH 5.5 5.0-9.0 Glucose Urine UA Negative Negative mg/dL Urine Blood Negative Negative Specific [place] - Urine 1.020 1.005-1.025 Urine Protein Trace Neg-Trace mg/dL Urine Ketones Negative Negative mg/dL Nitrite Urine Negative Negative Leukocyte Esterase Urine Negative Negative RBC Urine 0-2 0-2 /HPF WBC Urine 0-5 0-5 /HPF Squamous Epithelial Cell Urine 0-2 0-2 /HPF Bacteria Urine None Seen None Seen Hyaline Casts Urine 0-2 0-2 /LPF Glucose, finger stick Reviewed date:01/28/2024 10:22:49 AM Interpretation: Performing Lab: Notes/Report: Value 208 Glucose, finger stick Reviewed date:03/17/2024 10:25:21 AM Interpretation: Performing Lab: Notes/Report: Value 181 Glucose, finger stick Reviewed date:08/25/2024 01:00:35 PM Interpretation: Performing Lab: Notes/Report: Value 128 Complete Blood Count Auto Di ff Reviewed date:11/13/2023 04:27:25 PM Interpretation: Performing Lab:[facility], [address] [place] [phone] Notes/Report: White Blood Count 9.5 4.8-10.8 X10*3/uL Red Blood Count 3.85 4.60-5.80 X10*6/uL Hemoglobin 12.9 14.0-18.0 g/dl Hematocrit 38.4 42.0-52.0 % Mean Corpuscular Volume 99.7 80.0-98.0 fL Mean Corpuscular Hemoglobin 33.5 27.0-33.0 pg Mean Corpuscular HGB Conc 33.6 31.0-36.0 g/dl Red Cell Distribution Width 16.1 11.0-16.0 % Platelet Count 166 160-400 X10*3/uL Mean Platelet Volume 9.8 9.4-12.4 fL Neutrophils Percent Auto 55.6 45-73 % Imm Gran Pct Auto 0.4 0.0-0.4 % Lymphocytes Percent Auto 32.7 20-40 % Monocytes Percent Auto 8.8 2-11 % Eosinophils Percent Auto 1.9 0-4 % Basophils Percent Auto 0.6 0-2 % NRBC Pct Auto 0.0 0.0-0.2 /100WBC Neutrophils Absolute Auto 5.3 2.0-8.3 x10*3/u L Imm Gran Abs Auto 0.04 0.00-0.03 X10*3/uL Lymphocytes Absolute Auto 3.1 1.2-4.9 X10*3/u L Monocytes Absolute Auto 0.8 0.1-1.2 X10*3/uL Eosinophils Absolute Auto 0.2 0.0-0.4 X10*3/u L Basophils Absolute Auto 0.1 0.0-0.2 X10*3/uL NRBC Abs Auto 0.000 0.0-0.012 X10*3/uL Comprehensive Met. Panel Reviewed date:11/15/2023 12:49:05 PM Interpretation: Performing Lab:[address] [phone] Notes/Report: Sodium 142 135-145 mmol/L Potassium 4.1 3.3-5.1 mmol/L Chloride 104 96-108 mmol/L Carbon Dioxide 26 22-29 mmol/L Anion Gap 16 12-20 Blood Urea Nitrogen 30 9-16 mg/dL Creatinine 1.29 0.5-1.4 mg/dL Creatinine Clr Calc Pharmacy 39.8 eGFR (calculated from the MDRD study equation) and eCrCl (calculated from the Cockcroft-Gault equation) are based on different parameters and may not yield comparable results. If eCrCl result is absurd, please check patient's height/weight. Estimated Glomerular Filt Rate 53 NOTE: For -Indian individuals, multiply the result by 1.210. Chronic Kidney Disease: Estimated GFR < 60 mL/min/1.73m2 Severe Kidney Disease: Estimated GFR < 15 mL/min/1.73m2 Glucose Random 61 60-115 mg/dL Calcium 10.3 8.4-10.2 mg/dL Bilirubin Total 0.9 0.0-1.0 mg/dL Aspartate Amino Transferase 26 5-37 U/L Alanine Aminotransferase 21 0-40 U/L Total Protein 7.5 6.5-8.0 g/dL Albumin Level 4.3 3.5-5.0 g/dL Alkaline Phosphatase 117 39-117 U/L Magnesium Reviewed date:11/13/2023 02:26:31 PM Interpretation: Performing Lab:[facility], [address] [place] [phone] Notes/Report: Magnesium 1.6 1.6-2.6 mg/dL Troponin-I High Sensitivity Reviewed date:11/13/2023 02:26:11 PM Interpretation: Performing Lab:[address] [phone] Notes/Report: Troponin-I High Sensitivity 9.3 <3.5-35.0 ng/L The Joseph high sensitivity Troponin-I results should be used in conjunction with other diagnostic information such as ECG, clinical observations and information, and patient symptoms to aid in the diagnosis of ID. Lipase Reviewed date:11/13/2023 02:26:01 PM Interpretation: Performing Lab:[facility], [address] [place] [address] Notes/Report: Lipase 30 8-78 U/L CT cervical spine wo con Reviewed date:11/13/2023 04:24:54 PM Interpretation: Performing Lab: Notes/Report: [facility] [address] [facility] [place] [address] CT Scan Report Signed Patient: Delia Chávez MR#: [id number] : 1935 Acct:[id number] Age/Sex: 88 / M ADM Date: 11/13/23 Loc: HO.ED Attending Dr: Ordering Physician: Vida Harrison Date of Service: 11/13/23 Procedure(s): CT cervical spine wo IV con Accession Number(s): [id number] cc: Orestes Alex MD; Vida Harrison EXAMINATION: CT HEAD AND FACIAL BONES WITHOUT CONTRAST CLINICAL INFORMATION: Fall anticoagulation COMPARISON: CT head from 04/03/2023 TECHNIQUE: Contiguous axial imaging was performed from the skull base to vertex and facial bones without intravenous administration of contrast. This CT examination was performed using dose optimization techniques as appropriate, variously including the following: *Automated exposure control *Adjustment of mA and/or kV according to patient size (this includes techniques or standardized protocols for targeted exams where dose is matched to indication/reason for exam; i.e. extremities or head) *Use of iterative reconstruction technique DLP: 583.09 mGy-cm (CT Head) 308.8 mGy-cm (CT Facial Bones) FINDINGS: There is no evidence of acute intracranial hemorrhage or territorial infarction. Chronic white matter small vessel ischemic changes. Cerebral atrophy with commensurate ventricular changes. Physiologic mineral deposition of the bilateral basal ganglia No abnormal mass effect or midline shift is seen. Syed to white matter differentiation is well preserved. No extra-axial fluid collections are identified. Atherosclerotic calcifications. The ventricles are normal in size. There is no abnormal attenuation within the brain parenchyma.. Soft tissue hematoma overlying the right frontal sinus/medial supraorbital rim measuring 2.5 x 1.7 cm without underlying osseous defect. Comminuted mildly displaced bilateral nasal bone fractures. The paranasal sinuses are well-aerated. No air-fluid levels are seen. There is leftward deviation of the nasal septum. The ostiomeatal complexes are clear. The lamina papyracea are intact. The ethmoid roofs are symmetric. Slight mucoperiosteal thickening of the bilateral maxillary sinuses. The mastoid air cells and visualized middle ear cavities are well-aerated. The orbits are normal. The TMJs are unremarkable. CT/CT cervical spine wo IV con IMPRESSION: 1. No acute intracranial pathology. 2. Soft tissue hematoma overlying the right frontal sinus/medial supraorbital rim measuring 2.5 x 1.7 cm without underlying osseous defect. 3. Comminuted mildly displaced bilateral nasal bone fractures. 4. Chronic white matter small vessel ischemic changes. EXAMINATION: Noncontrast CT scan of the cervical spine. INDICATION: Fall COMPARISON: None. TECHNIQUE: Helical, multidetector axial images were obtained from the occiput to the upper thorax. Coronal and sagittal reformats of the cervical spine were provided for interpretation. DLP: 324.75 mGy-cm FINDINGS: No acute fractures or dislocations of the cervical spine are seen. Straightening the normal cervical curvature. Grade 1 anterolisthesis of C2 on C3 and C7 on T1. Grade 1 retrolisthesis of C4 on C5. Multilevel degenerative changes. Anatomic alignment and positioning of the vertebral bodies and posterior elements is noted. The atlantoaxial joint and craniovertebral articulations are normal without evidence of subluxation. There is no prevertebral soft tissue swelling. Biapical pleural parenchymal lung scarring. IMPRESSION: 1. No acute visible fracture or dislocation. 2. Straightening the normal cervical curvature. 3. Grade 1 anterolisthesis of C2 on C3 and C7 on T1. 4. Grade 1 retrolisthesis of C4 on C5. 5. Multilevel degenerative changes. Dictated By: Flaquita López MD Signed By: <Electronically signed by Flaquita Lpóez MD in [place]> 11/13/23 5200 DD/ 1415 TD/TT: Terra[employer] Installer: [address] [address] [address] Scan Report Signed Patient: Delia Chávez MR#: [id number] : 1935 Acct:[id number] Age/Sex: 88 / M ADM Date: 11/13/23 Loc: HO.ED Attending Dr: Ordering Physician: Vida Harrison Date of Service: 11/13/23 Procedure(s): CT cervical spine wo IV con Accession Number(s): [id number] cc: Orestes Alex MD; Vida Harrison EXAMINATION: CT HEAD AND FACIAL B ONES WITHOUT CONTRAST CLINICAL INFORMATION: Fall anticoagulation COMPARISON: CT head from 04/03/2023 TECHNIQUE: Contiguous axial adele ging was performed from the skull base to vertex and facial bones wit hout intravenous administration of contrast. This CT examination was performed using dose optimization techniques as appropriate, various ly including the following: *Automated exposure control *Adjustment of mA an d/or kV according to patient size (this includes techniques or standardized protocols for targeted exams where dose is matched to indication/reason for exam; i.e. extremities or head) *Use of iterative reconstruction technique DLP: 583.09 mGy-cm (CT Head) 308.8 mGy-cm (CT Fac ial Bones) FINDINGS: There is no evidence of acute intracranial hemorrhage or territorial infarction. Chronic white matter small vessel ischemic changes. Cerebral atrophy wit h commensurate ventricular changes. Physiologic mineral deposition o f the bilateral basal ganglia No abnormal mass effect or midline sh ift is seen. Syed to white matter differentiation is well preserved. N o extra-axial fluid collections are identified. Atherosclerotic calcifications. The ventricles are normal in size. There is no abnormal attenuation within the brain parenchyma.. Soft tissue hematoma overlying the right frontal sinus/medial supraorbital rim measuring 2.5 x 1.7 cm without underlying osseous defect. Comminuted mildly displaced bilateral nasal bone fractures. The paranasal sinuse s are well-aerated. No air-fluid levels are seen. There is leftward deviation of the nasal septum. The ostiomeatal complexes are clear. The lamina papyracea are intact. The ethmoid roofs are symmetric. Slight mucoperiostea l thickening of the bilateral maxillary sinuses. The mastoid air cell s and visualized middle ear cavities are well-aerated. The or bits are normal. The TMJs are unremarkable. C T/CT cervical spine wo IV con IMPRESSION: 1. No acute intracra nial pathology. 2. Soft tissue hemat nahomi overlying the right frontal sinus/medial supraorbital rim measuring 2.5 x 1.7 cm without underlying osseous defect. 3. Comminuted mildly displaced bilateral nasal bone fractures. 4. Chronic white mat ter small vessel ischemic changes. EXAMINATION: Noncont rast CT scan of the cervical spine. INDICATION: Fall COMPARISON: None. TECHNIQUE: Helical, multidetector axial images were obtained from the occiput to the upper thorax. Coronal and sagittal reformats of the cervical spine were provided for interpretation. DLP: 324.75 mGy-cm FINDINGS: No acute fractures o r dislocations of the cervical spine are seen. Straightening the no rmal cervical curvature. Grade 1 anterolisthesis of C2 on C3 and C7 on T 1. Grade 1 retrolisthesis of C4 on C5. Multilevel degenerative changes . Anatomic alignment and positioning of the vertebral bodies and posterior elements is noted. The atlantoaxial joint and craniovertebral articulations are normal without evidence of subluxation. There i s no prevertebral soft tissue swelling. Biapical pleural parenchymal lung scarring. IMPRESSION: 1. No acute visible fracture or dislocation. 2. Straightening the normal cervical curvature. 3. Grade 1 anterolisthesis of C2 on C3 and C7 on T1. 4. Grade 1 retrolisthesis of C4 on C5. 5. Multilevel degenerative changes. Dictated By: Irena López MD Signed By: <Electronically signed by Samer MD Maribel in [place]> 11/13/23 1456 DD/ 1415 TD/TT: Terrazzo Installer: CT head/brain wo con Reviewed date:11/13/2023 04:24:26 PM Interpretation: Performing Lab: Notes/Report: [address] [address] [address] Scan Report Signed Patient: Delia Chávez MR#: [id number] : 1935 Acct:[id number] Age/Sex: 88 / M ADM Date: 11/13/23 Loc: HO.ED Attending Dr: Ordering Physician: Vida Harrison Date of Service: 11/13/23 Procedure(s): CT head/brain wo IV con Accession Number(s): [id number] cc: Orestes Alex MD; Vida Harrison EXAMINATION: CT HEAD AND FACIAL BONES WITHOUT CONTRAST CLINICAL INFORMATION: Fall anticoagulation COMPARISON: CT head from 04/03/2023 TECHNIQUE: Contiguous axial imaging was performed from the skull base to vertex and facial bones without intravenous administration of contrast. This CT examination was performed using dose optimization techniques as appropriate, variously including the following: *Automated exposure control *Adjustment of mA and/or kV according to patient size (this includes techniques or standardized protocols for targeted exams where dose is matched to indication/reason for exam; i.e. extremities or head) *Use of iterative reconstruction technique DLP: 583.09 mGy-cm (CT Head) 308.8 mGy-cm (CT Facial Bones) FINDINGS: There is no evidence of acute intracranial hemorrhage or territorial infarction. Chronic white matter small vessel ischemic changes. Cerebral atrophy with commensurate ventricular changes. Physiologic mineral deposition of the bilateral basal ganglia No abnormal mass effect or midline shift is seen. Syed to white matter differentiation is well preserved. No extra-axial fluid collections are identified. Atherosclerotic calcifications. The ventricles are normal in size. There is no abnormal attenuation within the brain parenchyma.. Soft tissue hematoma overlying the right frontal sinus/medial supraorbital rim measuring 2.5 x 1.7 cm without underlying osseous defect. Comminuted mildly displaced bilateral nasal bone fractures. The paranasal sinuses are well-aerated. No air-fluid levels are seen. There is leftward deviation of the nasal septum. The ostiomeatal complexes are clear. The lamina papyracea are intact. The ethmoid roofs are symmetric. Slight mucoperiosteal thickening of the bilateral maxillary sinuses. The mastoid air cells and visualized middle ear cavities are well-aerated. The orbits are normal. The TMJs are unremarkable. CT/CT head/brain wo IV con IMPRESSION: 1. No acute intracranial pathology. 2. Soft tissue hematoma overlying the right frontal sinus/medial supraorbital rim measuring 2.5 x 1.7 cm without underlying osseous defect. 3. Comminuted mildly displaced bilateral nasal bone fractures. 4. Chronic white matter small vessel ischemic changes. EXAMINATION: Noncontrast CT scan of the cervical spine. INDICATION: Fall COMPARISON: None. TECHNIQUE: Helical, multidetector axial images were obtained from the occiput to the upper thorax. Coronal and sagittal reformats of the cervical spine were provided for interpretation. DLP: 324.75 mGy-cm FINDINGS: No acute fractures or dislocations of the cervical spine are seen. Straightening the normal cervical curvature. Grade 1 anterolisthesis of C2 on C3 and C7 on T1. Grade 1 retrolisthesis of C4 on C5. Multilevel degenerative changes. Anatomic alignment and positioning of the vertebral bodies and posterior elements is noted. The atlantoaxial joint and craniovertebral articulations are normal without evidence of subluxation. There is no prevertebral soft tissue swelling. Biapical pleural parenchymal lung scarring. IMPRESSION: 1. No acute visible fracture or dislocation. 2. Straightening the normal cervical curvature. 3. Grade 1 anterolisthesis of C2 on C3 and C7 on T1. 4. Grade 1 retrolisthesis of C4 on C5. 5. Multilevel degenerative changes. Dictated By: Flaquita López MD Signed By: <Electronically signed by Flaquita López MD in [place]> 11/13/23 1456 DD/ 1415 TD/TT: Terrazzo Installer: [place] [address] CT Scan Report Signed Patient: Delia Chávez MR#: [id number] : 1935 Acct:[id number] Age/Sex: 88 / M ADM Date: 11/13/23 Loc: HO.ED Attending Dr: Ordering Physician: Vida Harrison Date of Service: 11/13/23 Procedure(s): CT head/brain wo IV con Accession Number(s): [id number] cc: Orestes Alex MD; Vida Harrison EXAMINATION: CT HEAD AND FACIAL B ONES WITHOUT CONTRAST CLINICAL INFORMATION: Fall anticoagulation COMPARISON: CT head from 04/03/2023 TECHNIQUE: Contiguous axial adele ging was performed from the skull base to vertex and facial bones wit hout intravenous administration of contrast. This CT examination was performed using dose optimization techniques as appropriate, various ly including the following: *Automated exposure control *Adjustment of mA an d/or kV according to patient size (this includes techniques or standardized protocols for targeted exams where dose is matched to indication/reason for exam; i.e. extremities or head) *Use of iterative reconstruction technique DLP: 583.09 mGy-cm (CT Head) 308.8 mGy-cm (CT Fac ial Bones) FINDINGS: There is no evidence of acute intracranial hemorrhage or territorial infarction. Chronic white matter small vessel ischemic changes. Cerebral atrophy wit h commensurate ventricular changes. Physiologic mineral deposition o f the bilateral basal ganglia No abnormal mass effect or midline sh ift is seen. Syed to white matter differentiation is well preserved. N o extra-axial fluid collections are identified. Atherosclerotic calcifications. The ventricles are normal in size. There is no abnormal attenuation within the brain parenchyma.. Soft tissue hematoma overlying the right frontal sinus/medial supraorbital rim measuring 2.5 x 1.7 cm without underlying osseous defect. Comminuted mildly displaced bilateral nasal bone fractures. The paranasal sinuse s are well-aerated. No air-fluid levels are seen. There is leftward deviation of the nasal septum. The ostiomeatal complexes are clear. The lamina papyracea are intact. The ethmoid roofs are symmetric. Slight mucoperiostea l thickening of the bilateral maxillary sinuses. The mastoid air cell s and visualized middle ear cavities are well-aerated. The or bits are normal. The TMJs are unremarkable. C T/CT head/brain wo IV con IMPRESSION: 1. No acute intracra nial pathology. 2. Soft tissue hemat nahomi overlying the right frontal sinus/medial supraorbital rim measuring 2.5 x 1.7 cm without underlying osseous defect. 3. Comminuted mildly displaced bilateral nasal bone fractures. 4. Chronic white mat ter small vessel ischemic changes. EXAMINATION: Noncont rast CT scan of the cervical spine. INDICATION: Fall COMPARISON: None. TECHNIQUE: Helical, multidetector axial images were obtained from the occiput to the upper thorax. Coronal and sagittal reformats of the cervical spine were provided for interpretation. DLP: 324.75 mGy-cm FINDINGS: No acute fractures o r dislocations of the cervical spine are seen. Straightening the no rmal cervical curvature. Grade 1 anterolisthesis of C2 on C3 and C7 on T 1. Grade 1 retrolisthesis of C4 on C5. Multilevel degenerative changes . Anatomic alignment and positioning of the vertebral bodies and posterior elements is noted. The atlantoaxial joint and craniovertebral articulations are normal without evidence of subluxation. There i s no prevertebral soft tissue swelling. Biapical pleural parenchymal lung scarring. IMPRESSION: 1. No acute visible fracture or dislocation. 2. Straightening the normal cervical curvature. 3. Grade 1 anterolisthesis of C2 on C3 and C7 on T1. 4. Grade 1 retrolisthesis of C4 on C5. 5. Multilevel degenerative changes. Dictated By: Sa shantelle López MD Signed By: <Electronically signed by Flaquita López MD in [place]> 11/13/23 1456 DD/ 1415 TD/TT: Terrazzo Installer: CT facial bones wo con Reviewed date:11/13/2023 04:24:46 PM Interpretation: Performing Lab: Notes/Report: [place] [address] CT Scan Report Signed Patient: Delia Chávez MR#: [id number] : 1935 Acct:[id number] Age/Sex: 88 / M ADM Date: 11/13/23 Loc: HO.ED Attending Dr: Ordering Physician: Vida Harrison Date of Service: 11/13/23 Procedure(s): CT facial bones wo IV con Accession Number(s): [id number] cc: Orestes Alex MD; Vida Harrison EXAMINATION: CT HEAD AND FACIAL BONES WITHOUT CONTRAST CLINICAL INFORMATION: Fall anticoagulation COMPARISON: CT head from 04/03/2023 TECHNIQUE: Contiguous axial imaging was performed from the skull base to vertex and facial bones without intravenous administration of contrast. This CT examination was performed using dose optimization techniques as appropriate, variously including the following: *Automated exposure control *Adjustment of mA and/or kV according to patient size (this includes techniques or standardized protocols for targeted exams where dose is matched to indication/reason for exam; i.e. extremities or head) *Use of iterative reconstruction technique DLP: 583.09 mGy-cm (CT Head) 308.8 mGy-cm (CT Facial Bones) FINDINGS: There is no evidence of acute intracranial hemorrhage or territorial infarction. Chronic white matter small vessel ischemic changes. Cerebral atrophy with commensurate ventricular changes. Physiologic mineral deposition of the bilateral basal ganglia No abnormal mass effect or midline shift is seen. Syed to white matter differentiation is well preserved. No extra-axial fluid collections are identified. Atherosclerotic calcifications. The ventricles are normal in size. There is no abnormal attenuation within the brain parenchyma.. Soft tissue hematoma overlying the right frontal sinus/medial supraorbital rim measuring 2.5 x 1.7 cm without underlying osseous defect. Comminuted mildly displaced bilateral nasal bone fractures. The paranasal sinuses are well-aerated. No air-fluid levels are seen. There is leftward deviation of the nasal septum. The ostiomeatal complexes are clear. The lamina papyracea are intact. The ethmoid roofs are symmetric. Slight mucoperiosteal thickening of the bilateral maxillary sinuses. The mastoid air cells and visualized middle ear cavities are well-aerated. The orbits are normal. The TMJs are unremarkable. CT/CT facial bones wo IV con IMPRESSION: 1. No acute intracranial pathology. 2. Soft tissue hematoma overlying the right frontal sinus/medial supraorbital rim measuring 2.5 x 1.7 cm without underlying osseous defect. 3. Comminuted mildly displaced bilateral nasal bone fractures. 4. Chronic white matter small vessel ischemic changes. EXAMINATION: Noncontrast CT scan of the cervical spine. INDICATION: Fall COMPARISON: None. TECHNIQUE: Helical, multidetector axial images were obtained from the occiput to the upper thorax. Coronal and sagittal reformats of the cervical spine were provided for interpretation. DLP: 324.75 mGy-cm FINDINGS: No acute fractures or dislocations of the cervical spine are seen. Straightening the normal cervical curvature. Grade 1 anterolisthesis of C2 on C3 and C7 on T1. Grade 1 retrolisthesis of C4 on C5. Multilevel degenerative changes. Anatomic alignment and positioning of the vertebral bodies and posterior elements is noted. The atlantoaxial joint and craniovertebral articulations are normal without evidence of subluxation. There is no prevertebral soft tissue swelling. Biapical pleural parenchymal lung scarring. IMPRESSION: 1. No acute visible fracture or dislocation. 2. Straightening the normal cervical curvature. 3. Grade 1 anterolisthesis of C2 on C3 and C7 on T1. 4. Grade 1 retrolisthesis of C4 on C5. 5. Multilevel degenerative changes. Dictated By: Flaquita López MD Signed By: <Electronically signed by Flaquita López MD in OV> 11/13/23 1456 DD/ 1415 TD/TT: Terrazzo Installer: [address] [address] [address] Scan Report Signed Patient: Delia Chávez MR#: [id number] : 1935 Acct:[id number] Age/Sex: 88 / M ADM Date: 11/13/23 Loc: HO.ED Attending Dr: Ordering Physician: Vida Harrison Date of Service: 11/13/23 Procedure(s): CT fac ial bones wo IV con Accession Number(s): [id number] cc: Orestes Alex MD; Vida Harrison EXAMINATION: CT HEAD AND FACIAL B ONES WITHOUT CONTRAST CLINICAL INFORMATION: Fall anticoagulation COMPARISON: CT head from 04/03/2023 TECHNIQUE: Contiguous axial adele ging was performed from the skull base to vertex and facial bones wit hout intravenous administration of contrast. This CT examination was performed using dose optimization techniques as appropriate, various ly including the following: *Automated exposure control *Adjustment of mA an d/or kV according to patient size (this includes techniques or standardized protocols for targeted exams where dose is matched to indication/reason for exam; i.e. extremities or head) *Use of iterative reconstruction technique DLP: 583.09 mGy-cm (CT Head) 308.8 mGy-cm (CT Fac ial Bones) FINDINGS: There is no evidence of acute intracranial hemorrhage or territorial infarction. Chronic white matter small vessel ischemic changes. Cerebral atrophy wit h commensurate ventricular changes. Physiologic mineral deposition o f the bilateral basal ganglia No abnormal mass effect or midline sh ift is seen. Syed to white matter differentiation is well preserved. N o extra-axial fluid collections are identified. Atherosclerotic calcifications. The ventricles are normal in size. There is no abnormal attenuation within the brain parenchyma.. Soft tissue hematoma overlying the right frontal sinus/medial supraorbital rim measuring 2.5 x 1.7 cm without underlying osseous defect. Comminuted mildly displaced bilateral nasal bone fractures. The paranasal sinuse s are well-aerated. No air-fluid levels are seen. There is leftward deviation of the nasal septum. The ostiomeatal complexes are clear. The lamina papyracea are intact. The ethmoid roofs are symmetric. Slight mucoperiostea l thickening of the bilateral maxillary sinuses. The mastoid air cell s and visualized middle ear cavities are well-aerated. The or bits are normal. The TMJs are unremarkable. C T/CT facial bones wo IV con IMPRESSION: 1. No acute intracra nial pathology. 2. Soft tissue hemat nahomi overlying the right frontal sinus/medial supraorbital rim measuring 2.5 x 1.7 cm without underlying osseous defect. 3. Comminuted mildly displaced bilateral nasal bone fractures. 4. Chronic white mat ter small vessel ischemic changes. EXAMINATION: Noncont rast CT scan of the cervical spine. INDICATION: Fall COMPARISON: None. TECHNIQUE: Helical, multidetector axial images were obtained from the occiput to the upper thorax. Coronal and sagittal reformats of the cervical spine were provided for interpretation. DLP: 324.75 mGy-cm FINDINGS: No acute fractures o r dislocations of the cervical spine are seen. Straightening the no rmal cervical curvature. Grade 1 anterolisthesis of C2 on C3 and C7 on T 1. Grade 1 retrolisthesis of C4 on C5. Multilevel degenerative changes . Anatomic alignment and positioning of the vertebral bodies and posterior elements is noted. The atlantoaxial joint and craniovertebral articulations are normal without evidence of subluxation. There i s no prevertebral soft tissue swelling. Biapical pleural parenchymal lung scarring. IMPRESSION: 1. No acute visible fracture or dislocation. 2. Straightening the normal cervical curvature. 3. Grade 1 anterolisthesis of C2 on C3 and C7 on T1. 4. Grade 1 retrolisthesis of C4 on C5. 5. Multilevel degenerative changes. Dictated By: Sa shantelle López MD Signed By: <Electronically signed by Samer MD Maribel in OV> 11/13/23 1456 DD/ 1415 TD/TT: Terrazzo Installer: XR chest 2V Reviewed date:11/14/2023 07:14:59 PM Interpretation: Performing Lab: Notes/Report: [address] [address] XRay Report Signed Patient: Delia Chávez MR#: [id number] : 1935 Acct:[id number] Age/Sex: 88 / M ADM Date: 11/13/23 Loc: HO.ED Attending Dr: Ordering Physician: Vida Harrison Date of Service: 11/13/23 Procedure(s): XR chest 2V Accession Number(s): [id number] cc: Orestes Alex MD; Vida Harrison EXAMINATION: XR CHEST CLINICAL INFORMATION: Fall. COMPARISON: Chest x-ray dated 11/26/2022 and 09/03/2017 TECHNIQUE: 2 views of the chest were obtained. FINDINGS: The cardiomediastinal silhouette is within normal limits in size. TAVR noted in place. Lungs bilaterally are symmetrically hyperexpanded and hyperlucent, consistent with obstructive emphysematous lung disease. Linear opacities are seen in the lung bases bilaterally, consistent with atelectasis or scarring. No focal consolidation, effusion or pneumothorax is seen. Diffuse osteopenia. Mild vertebral spondylosis in mid and lower thoracic spine. XR/XR chest 2V IMPRESSION: Obstructive emphysematous lung disease with bibasilar linear atelectasis or scarring. No acute pulmonary process seen. Dictated By: Marilee Boland MD Signed By: <Electronically signed by Marilee Boland MD in OV> 11/13/23 1635 DD/ 1420 TD/TT: Terrazzo Installer: SURINDER [address] [address] XRay Report Signed Patient: Delia Chávez MR#: [id number] : 1935 Acct:[id number] Age/Sex: 88 / M ADM Date: 11/13/23 Loc: HO.ED Attending Dr: Ordering Physician: Vida Harrison Date of Service: 11/13/23 Procedure(s): XR [facility] [facility] 2V Accession Number(s): [id number] cc: Orestes Alex MD; Vida Harrison EXAMINATION: XR CHEST CLINICAL INFORMATION: Fall. COMPARISON: Chest x-ray dated 11/26/2022 and 09/03/2017 TECHNIQUE: 2 views of the chest were obtained. FINDINGS: The cardiomediastina l silhouette is within normal limits in size. TAVR noted in place. Lungs bilaterally ar e symmetrically hyperexpanded and hyperlucent, consistent with obstructive emphysematous lung disease. Linear opacities are seen i n the lung bases bilaterally, consistent with atelectasis or scarr ing. No focal consolidation, effusion or pneumothorax is seen. Diffuse osteopenia. Mild vertebral spondylosis in mid and lower thoracic spine. X R/XR chest 2V IMPRESSION: Obstructive emphysematous lung disease with bibasilar linear atelectasis or scarr ing. No acute pulmonary process seen. Dictated By: Marilee Boland MD Signed By: <Electronically signed by Marilee Bloand MD in OV> 11/13/23 1635 DD/ 1420 TD/TT: Rigger Chief ist: DJ XR chest 2V (Not yet reviewe d by provider) Interpretation: Performing Lab: Notes/Report: [address] [address] XRay Report Signed Patient: Delia Chávez MR#: [id number] : 1935 Acct:[id number] Age/Sex: 89 / M ADM Date: 10/28/24 Loc: HO.XRAY Attending Dr: Cm Rivas NP Ordering Physician: Cm Rivas NP Date of Service: 10/28/24 Procedure(s): XR chest 2V Accession Number(s): [id number] cc: Orestes Alex MD; Cm Rivas NP EXAMINATION: XR CHEST CLINICAL INFORMATION: R06.02 - Shortness of breath COMPARISON: 11/13/2023. 11/26/2022. TECHNIQUE: 2 views of the chest were obtained. FINDINGS: The cardiac, hilar, and mediastinal contours are normal. TAVR in place. Aortic mural calcifications. Lungs are diffusely hyperaerated with flattened hemidiaphragms, findings consistent with COPD. There is chronic scarring in both lung bases, and the left upper lobe region. Probable scarring also in the right perihilar region. No focal consolidation. There is no pneumothorax or pleural effusion. There is no focal osseous or soft tissue abnormality. There are degenerative changes within the spine. XR/XR chest 2V IMPRESSION: COPD with chronic changes. No active superimposed disease. Electronically signed by: Tirso Garcia MD 10/28/2024 03:50 PM EDT RP Dictated By: Tirso Garcia MD Signed By: <Electronically signed by Tirso Garcia MD in OV> 10/28/24 1550 DD/ 1536 TD/TT: 10/28/24 1542 Terrazzo Installer: [place] [address] XRay Report Signed Patient: Delia Chávez MR#: [id number] : 1935 Acct:[id number] Age/Sex: 89 / M ADM Date: 10/28/24 Loc: DYLAN Attending Dr: Cm Rivas NP Ordering Physician: Cm Rivas NP Date of Service: 10/28/24 Procedure(s): XR [facility] 2V Accession Number(s): [id number] cc: Orestes Alex MD; Cm Rivas NP EXAMINATION: XR CHEST CLINICAL INFORMATION: R06.02 - Shortness o f breath COMPARISON: 11/13/2023. 11/26/2022. TECHNIQUE: 2 views of the chest were obtained. FINDINGS: The cardiac, hilar, and mediastinal contours are normal. TAVR in place. Aortic mural calcifications. Lungs are diffusely hyperaerated with flattened hemidiaphragms, findings consistent with COPD. There is chronic scarring in both lung bases, and the left upper lobe region. Probable scarring also in the right perihilar roge on. No focal consolidation. There is no pneumothorax or pleu ral effusion. There is no focal osseous or soft tissue abnormality. There are degenerative changes within the spine. X R/XR chest 2V IMPRESSION: COPD with chronic changes. No active superimposed disease. Electronically alex d by: Tirso Garcia MD 10/28/2024 03:50 PM EDT Dictated By: Tirso Garcia MD Signed By: <Electronically signed by Tirso Garcia MD in OV> 10/28/24 1550 DD/ 1536 TD/TT: 10/28/24 1542 Terrazzo Installer: Reason For Referral No Information Medications Medication SIG (Take, Route, Frequency, Duration) Notes Start Date End Date Status Furosemide 40 MG TAKE 1 TABLET BY ETELVINA TH EVERY DAY for 30 Active FeroSul 325 (65 Fe) MG TAKE 1 TABLET BY MOUTH EVERY DAY Orally for 90 days Active Atorvastatin Calcium 80 MG TAKE 1 TABLET ONCE DAILY for 90 Active Tamsulosin HCl 0.4 MG TAKE 1 CAPSULE ONC E DAILY DIRECTED Active Dilt-XR 180 MG TAKE 1 CAPSULE BY MO UTH EVERY DAY Active Metoprolol Succinate ER 25 MG 1 tablet Orally Once a day Active Eliquis 5 MG TAKE 1 TABLET TWICE A DAY Active Accu-Chek Suzanne Plus 0 DIRECTED DAILY IN VITRO 90 Active SITagliptin 50 MG 1tablets Orally Once a day Active glipiZIDE 5 MG TAKE 1 TABLET ONCE D AILY 30MINUTES BEFORE BREAKFAST Active FreeStyle Lancets - USE TO TEST BLOOD SAINZ GAR FOUR TIMES DAILY for 90 Active FreeStyle Lite Test - USE TO TEST BLOOD SUGAR FOUR TIMES DAILY for 100 Active Amoxicillin 500 MG TAKE 4 CAPSULES BY M OUTH 1 HOUR BEFORE DENTAL APPOINTMENT FOR 1 DAY for 1 Active Levothyroxine Sodium 125 MCG TAKE 1 TABLET EVERY MORNINGON AN EMPTY STOMACH for 90 Active metFORMIN HCl 500 MG 1 tablet Orally twi ce a day Active Immunizations Vaccine Route Administration Date Status Comme nts Flu Vaccine IM Intramuscular 02/07/2011 Administered Flu Vaccine IM Intramuscular 02/27/2012 Administered Flu Vaccine IM Intramuscular 03/03/2013 Administered PPSV23 (Pnemovax) Unknown 03/07/2013 Administered Fluarix Quadrivalent IM Intramuscular 02/13/2014 Adminsudhakar burrell Prevnar 13 IM Intramuscular 09/10/2014 Administered Fluarix Quadrivalent IM Intramuscular 03/08/2015 Adminsudhakar burrell Fluarix Quadrivalent IM Intramuscular 03/21/2016 Galileo burrell TDaP IM Intramuscular 03/31/2016 Administered Fluarix Quadrivalent IM Intramuscular 02/13/2017 Administe red Shingrix IM Intramuscular 12/06/2017 Administered [facility] Kory Rosario Fluarix Quadrivalent IM Intramuscular 03/05/2018 Administe red Shingrix Unknown 02/11/2018 Administered PPSV23 (Pnemovax) IM Intramuscular 04/16/2018 Administered Fluarix Quadrivalent IM Intramuscular 03/03/2019 Administe red Influenza High Dose IM Intramuscular 02/20/2020 Administer ed Covid Vaccine Unknown 07/16/2020 Administered [facility] Covid Vaccine Unknown 08/06/2020 Administered Influenza High Dose IM Intramuscular 02/18/2021 Administer ed SARS-COV-2 Pfizer Unknown 03/10/2021 Administered Walgr een's SARS-COV-2 Pfizer Unknown 03/10/2021 Administered SARS-COV-2 Pfizer Unknown 09/29/2021 Administered Walgr een's Influenza High Dose IM Intramuscular 02/21/2022 Administer ed SARS-COV-2 Pfizer Unknown 03/06/2022 Administered Walgr een's Influenza High Dose IM Intramuscular 03/06/2023 Administer ed SARS-COV-2 Pfizer Unknown 12/09/2022 Administered Influenza High Dose IM Intramuscular 02/18/2024 Administer ed Flu Vaccine Unknown 02/13/2014 Pending Social History Tobacco Use: Social History Observation [...] ast year? 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 Problem 24553971 Essential hypert ension (I10) Active confirmed Problem 528865104 Acquired hypothyroidism (E03.9) Active confirmed Problem 63751842 Type 2 diabetes mellitus without complication (E11.9) Active confirmed Problem 145427879 Hypoglycemia (E16.2) Active confirmed Problem 41244204 Iron deficiency anemia, unspecified iron deficiency anemia type (D50.9) Active confirmed Problem 796168104 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 Problem Aortic valve disorder (7287550) Severe aortic stenosis (I35.0) Active confirmed Problem 488129008 Rising PSA level (R97.20) Active confirmed Problem 828361472 Pure hypercholesterolemia (E78.00) Active confirmed Problem 100229642 Imbalance (R26.89) Active confirmed Problem 737994938 Frequent falls (R29.6) Active confirm ed Problem History of heart valve repair with prosthesis (13392459065381 8) H/O aortic valve replacement (Z95.2) Active confirmed Problem 22393932 Aneurysm artery, 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 Vital Signs Blood pressure diastolic 66 mm Hg 08/25/2024 Height 67 in 08/25/2024 Blood pressure systolic 128 mm Hg 08/25/2024 Weight 164 lbs 08/25/2024 BMI 25.68 kg/m2 08/25/2024 Encounters Encounter Location Date Provider Diagnosis Orestes Alex MD [address] [place] [address] [id number] 02/18/2024 Orestes Alex Encounter for immuni zation Z23 Orestes Alex MD [address] [place] [address] [id number] 06/20/2024 Orestes Alex Acquired hypothyroid ism E03.9 ; Type 2 diabetes mellitus without complication E11.9 ; Prostatism N40.0 ; Essential hypertension I10 ; Pure hypercholesterolemia E78.00 and Lymphocytosis D72.820 Orestes Alex MD [address] [place] [address] [id number] 06/27/2024 Orestes Alex Elevated BUN R79.9 ; Type 2 diabetes mellitus without complication E11.9 ; Essential hypertension I10 ; Prostatism N40.0 ; Pure hypercholesterolemia E78.00 ; Colon cancer screening Z12.11 ; Depression screening Z13.31 and Atrial fibrillation I48.91 Orestes Alex MD [address] [place] [address] [id number] 07/24/2024 Orestes Alex Elevated BUN R79.9 Orestes Alex MD [address] [place] [address] [id number] 11/19/2023 Orestes Alex Frequent falls R29.6 and Hematoma T14.8XXA Orestes Alex MD [address] [place] [address] [id number] 11/27/2023 Orestes Alex Frequent falls R29.6 and Hematoma T14.8XXA Orestes Alex MD [address] [place] [address] [id number] 12/11/2023 Orestes Alex Type 2 diabetes [place] itus without complication E11.9 Orestes Alex MD [address] [id number] 01/28/2024 Orestes Alex Type 2 diabetes [place] itus without complication E11.9 and Primary insomnia F51.01 Orestes Alex MD [address] [place] [address] [id number] 03/17/2024 Orestes Alex Type 2 diabetes [place] itus without complication E11.9 and Frequent falls R29.6 Orestes Alex MD [address] [id number] 08/25/2024 Orestes Alex Type 2 diabetes [place] itus without complication E11.9 and Insomnia G47.00 Orestes Alex MD [address] [id number] 11/15/2023 Orestes Alex MD [address] [id number] 10/02/2024 Orestes Alex Assessments Encounter Date Diagnosis (ICD Code) Assessment Notes Treatment Notes Treatment Clinical Notes Section Notes 02/18/2024 Encounter for immunization (ICD-10 - Z23) 06/20/2024 Acquired hypothyroid ism (ICD-10 - E03.9) 06/20/2024 Type 2 diabetes mellitus without complication (ICD-10 - E11.9) 06/27/2024 Elevated BUN (ICD-10 - R79.9) decrease furosemide to one half 06/27/2024 Type 2 diabetes mellitus without complication (ICD-10 - E11.9) doing well on meds 07/24/2024 Elevated BUN (ICD-10 - R79.9) 11/19/2023 Frequent falls (ICD- 10 - R29.6) have advised to use a cane. is not losing consciousness. has appt with neurology next week., Total time spent on the date of the encounter is 30 minutes including both face to face time spent and time spent reviewing documentation and counseling the patient. 11/19/2023 Hematoma (ICD-10 - T14.8XXA) will just observe 11/27/2023 Frequent falls (ICD- 10 - R29.6) using a cane and is going to see dr collazo 11/27/2023 Hematoma (ICD-10 - T14.8XXA) doing much better. decrease 50% in size/ the rest of the brusing has resolved. we discussed how a cane may help him with falling and going to see dr nolasco but don't think there is anything that he can do 12/11/2023 Type 2 diabetes mellitus without complication (ICD-10 - E11.9) have made some changes in meds to elimnate the glypizide, will continue current regiment and monitor 01/28/2024 Type 2 diabetes mellitus without complication (ICD-10 - E11.9) stable, will continue current regiment 01/28/2024 Primary insomnia (ICD-10 - F51.01) encouraged to not nap in the afternoon and if a nap is needed to do it before 2 and for only 20 mins 03/17/2024 Type 2 diabetes mellitus without complication (ICD-10 - E11.9) had all good sugars at home. takes them every day, will continue current regiment, will continue to monitor 08/25/2024 Type 2 diabetes mellitus without complication (ICD-10 - E11.9) doing well on meds, will continue current regiment 08/25/2024 Insomnia (ICD-10 - G47.00) sleeps 2 hours in the afternoon and then can't sleep at night. advised to only sleep for 20 mins 06/20/2024 Prostatism (ICD-10 - N40.0) 06/27/2024 Essential hypertensi on (ICD-10 - I10) doing well on meds 03/17/2024 Frequent falls (ICD- 10 - R29.6) need last note from dr rasmussen in january/ request will sent, Total time spent on the date of the encounter is 35 minutes including both face to face time spent and time spent reviewing documentation, and counseling the patient. 06/20/2024 Essential hypertensi on (ICD-10 - I10) 06/27/2024 Prostatism (ICD-10 - N40.0) 06/20/2024 Pure hypercholesterolemia (ICD-10 - E78.00) 06/27/2024 Pure hypercholesterolemia (ICD-10 - E78.00) 06/20/2024 Lymphocytosis (ICD-1 0 - D72.820) 06/27/2024 Colon cancer screeni ng (ICD-10 - Z12.11) 06/27/2024 Depression screening (ICD-10 - Z13.31) 06/27/2024 Atrial fibrillation (ICD-10 - I48.91) stable, will continue current regiment Plan Of Treatment Pending Test Test Name Order Date Electrocardiogram (EKG) 03/31/2016 ECHO 05/23/2021 XR chest 2V 10/28/2024 Blood Urea Nitrogen 07/24/2024 Creatinine 07/24/2024 Next Appt Details Provider Name:Orestes javier, 11/28/2024 08:00:00 AM, [address] [place] [address], [address], [phone], Provider Name:Orestes javier, 12/04/2024 01:45:00 PM, [address] [place] [address], [address], [phone], Provider Name:Orestes javier, 06/26/2025 07:15:00 AM, [address] [place] [address], [address], [phone], Provider Name:Orestes javier, 07/03/2025 01:30:00 PM, [address] [place] [address], [address], [phone], Insurance Providers Payer Name Payer Address Payer Phone Subscriber Number Group Number Insured Name Patient Relationship to Insured Coverage Start Date Coverage End Date MEDICARE [employer] [address] [place] [address] [id number] Delia Chávez Self - patient is the insured [employer] [address] [place] [address] [id number] Delia Chávez Self - patient is the insured Medical (General) History Medical History History ICD Code Hypothyroidism type II diabetes hypercholesterolemia colonoscopy 2008 not to have any more; C olonoscopy 01/09/19 - Dr. Allen cardiac cath october 2016 entirely normal benjaminip is esteban
--- OUTSIDE RECORDS SUMMARY | 2024-10-28 15:59 | XMS_ITS ---
Author Organization [facility] Address [address] [place] [address] Care Team Providers Care Director Security Risk Management Name Role Phone Orestes Alex MD Primary Care Provider UnavaXenia Rice Unavailable [phone] REASON FOR VISIT bought product Encounters Encounter Location Date Provider Diagnosis [address] [address] 02/14/2024 Xenia Hernández Plan Of Treatment Next Appt Details Provider Name:Xenia Jackson Edgar , 12/04/2024 01:00:00 PM, [address] [place], [address], Progress Notes * STEPHANIARichard WDOB:1935 (88 yo M)Acc No.[id number]:02/14/2024 Patient:?Richard Chávez Thiago :1935???Age:88 Y???Sex:Male Address:[address] [place] [address] * true * Date:? Generated for Printi ng/Faxing/eTransmitting on:?10/28/2024 03:58 PM EDT
== END 2024-10-28 15:24 | disposition home or self-care (01) ==
LOC: HO.HCS 14:37
PROVIDERS: PCP Internal Medicine
DX: R06.02 Shortness of breath (principal); Z95.2 Presence of prosthetic heart valve; I48.92 Unspecified atrial flutter; I10 Essential (primary) hypertension
CPT/HCPCS: 93010; 99214; G2211

== ENCOUNTER 2024-10-28 14:37 | Outpatient (REF) | payer MEDICARE, SELFPAY ==
[2024-10-27 08:40] VITALS: BP 122/60; BP 134/60; BMI 24.7
--- NOTE | ~2024-10-28 | XR_ITS ---
EXAMINATION: XR CHEST CLINICAL INFORMATION: R06.02 - Shortness of breath COMPARISON: 11/13/2023. 11/26/2022. TECHNIQUE: 2 views of the chest were obtained. FINDINGS: The cardiac, hilar, and mediastinal contours are normal. TAVR in place. Aortic mural calcifications. Lungs are diffusely hyperaerated with flattened hemidiaphragms, findings consistent with COPD. There is chronic scarring in both lung bases, and the left upper lobe region. Probable scarring also in the right perihilar region. No focal consolidation. There is no pneumothorax or pleural effusion. There is no focal osseous or soft tissue abnormality. There are degenerative changes within the spine. XR/XR chest 2V IMPRESSION: COPD with chronic changes. No active superimposed disease. Electronically signed by: Tirso Garcia MD 10/28/2024 03:50 PM EDT
--- OUTSIDE RECORDS SUMMARY | 2024-10-28 16:31 | XMS_ITS | Continuity of Care Document ---
Author Organization [facility] Address [address] [place] [address] Phone Care Team Providers Care Controller Instructor Name Role Phone [facility]EVERLY DAV[facility] [place] Unavailable Unavailable Procedures Procedure Date STRESS ECHO W/PHY SUP/REPT DOPPLER ECHO EXAM, HEART DOPPLER COLOR FLOW ADD-ON Advance Directives Directive Yes / No Effective Date File Name No Information Encounters Encounter Description Practice Location Reason(s) For Visit Diagnoses Date Provider Providers Copied on Encounter [facility], [address], [place], [address], [place] tel:[phone] [facility] No Information [facility]EVER[facility] DAV[facility] [place]. [address], [facility], [place], [place], [id number], [place]. tel:[phone] [facility], [address], [place], [address], [place] tel:[phone] [facility] Shortness of Breath [facility]EVERLY DAVILA [facility] [place]. [address], [facility], [place], [place], [id number], [place]. tel:[phone] Referring Provider: Cherie Badillo NP [facility], [address] [facility], [place], [address]. tel:[phone] Family History Family Member Type Diagnosis Age At Onset No Information Payers Payer name Insurance type Covered democrat ID Authorgricel lora(s) Medicare Part B [id number] [facility] Out Of Area [id number] Social History Type Description Quantity Date Captured [...]
== END 2024-10-28 14:38 | disposition home or self-care (01) ==
LOC: HO.XRAY 14:37
PROVIDERS: PCP Internal Medicine
DX: J44.9 Chronic obstructive pulmonary disease, unspecified (principal); R06.02 Shortness of breath; Z95.2 Presence of prosthetic heart valve; I48.92 Unspecified atrial flutter; I44.4 Left anterior fascicular block; I10 Essential (primary) hypertension
CPT/HCPCS: 71046; 93005; 99212

== ENCOUNTER → 2024-10-28 15:36 | Outpatient (BNV) | payer MEDICARE, SELFPAY ==
[2024-10-27 08:40] VITALS: BP 122/60; BP 134/60; BMI 24.7
== END ==
PROVIDERS: PCP Internal Medicine; Visit Provider Radiology Diagnostic Radiology
DX: J44.9 Chronic obstructive pulmonary disease, unspecified (principal)
CPT/HCPCS: 71046

== ENCOUNTER → 2024-10-29 14:44 | Outpatient (REF) | payer MEDICARE, SELFPAY ==
[2024-10-27 08:40] VITALS: BP 122/60; BP 134/60; BMI 24.7
--- NOTE | 2024-10-29 14:47 | CA_ITS ---
Transthoracic Echocardiogram Patient (Last, First, Middle): Richard Chávez W Gender: Male Date of : 1935 Age: 89 Procedure Date: 10/29/2024 Procedure Type: Transthoracic Echocardiogram Location: OP Height: 177.8 cm Weight: 68.49 kg BSA: 1.85 m2 Heart Rate: bpm BP: 116 / 60 mmHg National Account Manager: DUNG Referring MD: Cm Rivas MEND WORKER Head Animal Trainer: Home Kendall MD Symptoms: Z95.2 - Presence of prosthetic heart valve Study Quality: Adequate ECG Rhythm: Atrial Fibrillation Conclusions: - 1. Normal LV ejection fraction 55-60% with mild LVH 2. Biatrial enlargement, right greater than left 3. Normally function bioprosthetic aortic valve 4. Upper limits of normal ascending aortic size 5. Moderately elevated right ventricular systolic pressure 6. No pericardial effusion Findings Left Ventricle Normal left ventricular size and systolic function. There is mildly increased left ventricular wall thickness. The visually estimated ejection fraction is between 55-60%. Diastolic function is indeterminate on the basis of available data. Right Ventricle Mildly increased right ventricular cavity size. There is normal right ventricular systolic function. Atria The left atrium is mildly dilated. There is no evidence of interatrial shunt. The right atrium is moderately dilated. Aortic Valve A bioprosthetic aortic valve is present. The prosthetic aortic valve appears to be functioning normally. The mean gradient is 4 mmHg. Mitral Valve There is mild anterior and posterior mitral leaflet thickening. There is mild mitral valve regurgitation. There is no mitral valve stenosis. Pulmonic Valve The pulmonic valve was not well visualized. Tricuspid Valve Normal tricuspid valve structure. There is moderate tricuspid valve regurgitation. The right ventricular systolic pressure is 47 mmHg. Normal right atrial pressure. Moderate pulmonary hypertension is present. Great Vessels The pulmonary artery was not well visualized. Venous The inferior vena cava is normal in size and collapses greater than 50% with inspiration. Pericardium/Pleural There is no evidence of pericardial effusion. Prior Study Comparison Changes noted compared to prior study dated: 02/19/2024. RV systolic pressure is further elevated Measurements 2D Linear Measurements IVSd: 1.33 0.6-0.9/0.6-1.0 cm LVIDd: 4.92 3.9-5.3/4.2-5.9 cm LVIDd Index: 2.66 2.4-3.2/2.2-3.1 cm/m2 LVIDs: 3.50 2.0-3.6 cm LVPWd: 1.29 0.7-1.1 cm Ao Root: 2.50 2.1-3.5 cm LA Diam: 4.90 2.7-3.8/3.0-4.0 cm LAIDs Index: 2.65 1.5-2.3 cm/m2 LV Mass: 321.95 67-162/88-224 g LV Mass Index: 174.03 43-95/49-115 g/m2 LVOT Diam: 2.10 3.0+(-)1.3 cm Mitral Valve MV VTI: 0.28 MV Pk Gerry: 1.29 MV Mn Gerry: 0.64 MV Pk Grad: 7.00 MV Mn Grad: 2.00 MV Pk E: 1.18 MV Decel Time: 174.00 E'Lateral: 13.20 E'Medial: 6.42 E/E' Med: 18.40 E/E' Lat: 8.90 PHT: 51.00 MVA PHT: 4.31 MVA Continuity: 2.15 Decel [place]: 6.79 Aortic Valve AoV Pk Gerry: 1.54 AoV Mn Gerry: 0.94 AoV VTI: 0.28 AoV Pk Grad: 9.00 Aov Mn Grad: 4.00 ADY Cont.VTI: 2.12 LVOT LVOT Pk Gerry: 0.81 LVOT Mn Gerry: 0.55 LVOT VTI: 0.17 LVOT Pk Grad: 3.00 LVOT Mn Grad: 1.00 LVOT Diam: 2.10 LVOT Area: 3.46 Diastolic Function MV Pk E: 1.18 E'Medial: 6.42 E/E' Med: 18.40 E' Laterial: 13.20 E/E' Lat: 8.90 Right Ventricle TAPSE (mm): 26.00 Tricuspid Valve TR Pk Gerry: 3.32 TR Pk Grad: 44.00 RA Press: 3.00 RVSP: 47.00 Great Vessels Aorta Ao Root-2D: 2.50 2.0-3.7 cm Ao Asc: 3.60 2.1-3.4 cm Pulmonary Valve PV Pk Gerry: 0.87 Peak PV Grad: 3.00 Updated in Other Vendor System with Status of Final Home Kendall MD electronically signed on 10/30/2024 12:53:42 PM with status of Final
--- OUTSIDE RECORDS SUMMARY | 2024-10-29 14:52 | XMS_ITS ---
Author Organization Orestes Alex MD Address [address] [place] [phone] Care Team Providers Care Reinforcing Bar Setter Name Role Phone Orestes Alex Primary Care Provider REASON FOR VISIT BUN, CREATININE Encounters Encounter Location Date Provider Diagnosis Orestes Alex MD [address] [place] [phone] 07/24/2024 Orestes Alex Elevated BUN R79.9 Assessments Encounter Date Diagnosis (ICD Code) Assessment Notes Treatment Notes Treatment Clinical Notes Section Notes 07/24/2024 Elevated BUN (ICD-10 - R79.9) Plan Of Treatment Pending Test Test Name Order Date Blood Urea Nitrogen 07/24/2024 Creatinine 07/24/2024 Next Appt Details Provider Name:Orestes javier, 11/28/2024 08:00:00 AM, [address], Suite [facility], [place], [place], [phone], Provider Name:Orestes javier, 12/04/2024 01:45:00 PM, [address], [address], [place], [phone], Provider Name:Orestes Linda ricardor, 06/26/2025 07:15:00 AM, [address], [address], [place], [phone], Provider Name:Orestes Linda ier, 07/03/2025 01:30:00 PM, [address], [address], [place], [phone], Progress Notes * Delia CAT WDOB:1935 (89 yo M)Acc No.[id number]:07/24/2024 Progress Note Patient:?Delia CAT Provider:?Orestes Alex MD :1935???Age:88 Y???Sex:Male Wayne e:07/24/2024 Address:[address] [place] [address], [facility] [place], [id number] Subjective: * Chief Complaints: * ???1. BUN, CREATININE. * Medical History:? Objective: * Vitals:? Assessment: * Assessment: 1.?Elevated BUN - R79.9 (Diana burden)??? Plan: * Treatment: * Procedure Codes:?91737 VENIP UNCT, ROUTINE* * * The named appointment provid er may or may not be the originator of this progress note, and it is not deemed complete until electronically signed by the appointment provider. Sign off status: Pending * Provider:?Orestes Alex MD Date:?0 07/24/2024 Generated for Morelia martell/Bernardino/eTmikysmitting on:?10/29/2024 02:51 PM EDT
--- OUTSIDE RECORDS SUMMARY | 2024-10-29 14:52 | XMS_ITS ---
[facility] Address [address] [facility] [place] [address] Care Team Providers Care Inside Barrel Lathe Operator Name Role Phone Isai DAVILA, Orestes Primary Care Provider Yakelin Hernández, Xenia Unavailable [phone] Allergies Allergen (clinical drug ingredient) Drug/Non Drug [...] Ordered Date Performed Result Body Sit e 22085-WYKIJFU NAIL, 6 OR MORE 05/26/2024 N/A 43568-Hpjvnazn Plate 05/26/2024 N/A 35995-Ukxdnfeu Plate Each Additional 05/26/2024 N/A Encounters Encounter Location Date Provider Diagnosis [facility] [place] [address] [place] [address] 05/26/2024 Xenia Black Tinea unguium B35.1 ; [...] Treatment Pending Test Test Name Order Date 34741-UWSDHJZ NAIL, 6 OR MORE 05/26/2024 57431-Rptwcusz Plate 05/26/2024 10046-Kssefvqc Plate Each Additional Next Appt Details Follow Up: 2 Weeks,prn, Shara on: Provider Name:Xenia Hernández , 12/04/2024 01:00:00 PM, [address] [place] [address], [phone], Procedure Notes * Category Sub-Category Detail Notes [...] and future surgical procedures to prevent recurrence (67922/32), DIABETES: Matricectomy deferred at this time due [...] use of a nail nipper and/or dremel-type gold nib grinder, to a more viable healthy nail [...] to maintain effectiveness in symptomatic relief - 61043 Progress Notes * Richard CAT WDOB:1935 (88 yo M)Acc No.[id number]:05/26/2024 Progress Note Patient:?Richard CAT Provider:?Xenia Hernández DPM :1935???Age:88 Y???Sex:Male Wayne e:05/26/2024 Address:[address] [place] [address] , [facility] [place], [phone] Pcp:Orestes Alex MD Subjective: * Chief Complaints: [...] - M79.675??? Plan: * Treatment: 2.?Tinea unguium?Procedure: 67679-HZQVPHB NAIL, 6 OR MORE * Procedures:?Debride Nail [...] use of a nail nipper and/or dremel-type gold nib grinder, to a more viable healthy nail [...] to maintain effectiveness in symptomatic relief - 04958.?Nail Avulsion:?Location?Bilateral nail border, T1, T6.?Anesthesia?, was accomplished [...] and future surgical procedures to prevent recurrence (80477/32), DIABETES: Matricectomy deferred at this time due to diabetes risk.? * Procedure Codes:?60714 DEBRI DE NAIL, 6 OR [id number] Avulsion Plate, Modifiers: T1 02567 Avulsion Plate Each Additional, Modifiers: T6 * [...] Hernández DPM Date:?2023 Generated for Morelia martell/Bernardino/Delia on:?10/29/2024 02:52 PM EDT History and Physical Notes * [...]
--- OUTSIDE RECORDS SUMMARY | 2024-10-29 14:52 | XMS_ITS ---
Author Organization [facility] Address [address] [place] [address] Care Team Providers Care Thread Separator Name Role Phone Orestes Alex MD Primary Care Provider Xenia Rojas [phone] Mark Encounters Encounter Location Date Provider Diagnosis [address] [address] 09/01/2024 Xenia Hernández Plan Of Treatment Next Appt Details Provider Name:Xenia Hernández , 12/04/2024 01:00:00 PM, [address] [place] [address], [phone], Progress Notes * Richard CAT WDOB:1935 (89 yo M)Acc No.[id number]:09/01/2024 Progress Note Patient:?Richard CAT Provider:?Xenia Hernández DPM :1935???Age:89 Y???Sex:Male Wayne e:09/01/2024 Address:[address] [phone] Pcp:Orestes Alex MD Subjective: [...] Hernández DPM Date:?2024 Generated for Morelia martell/Bernardino/Delia on:?10/29/2024 02:51 PM EDT
--- OUTSIDE RECORDS SUMMARY | 2024-10-29 14:52 | XMS_ITS | Patient Health Record ---
Author Organization [facility] Address [address] [place] [address] Care Team Providers Care Gas Treater Name Role Phone Orestes Alex MD Primary Care Provider [address] Way Unavailable [phone] Allergies Allergen (clinical drug ingredient) Drug/Non Drug [...] Problem Status W/U Status Risk Notes Problem 43864405 Rectal bleeding (K62.5) Active confirmed Problem 39965115 Change in bowel function (R19.4) Active confirmed Problem Anemia (D64.9) Active confirmed Problem 06416942 Constipation, unspecified constipation type (K59.00) Active confirmed Problem 255343447 Anemia, unspecified type (D64.9) Active confirmed Plan [...] Date MEDICARE OF [place] [address] [facility] [id number] DELIA CAT Self - patient is the insured MED[employer] ATTN CLAIMS [address] [place] [phone] [id number] DELIA CAT Self - patient is the [...]
--- OUTSIDE RECORDS SUMMARY | 2024-10-29 14:52 | XMS_ITS ---
Author Organization Orestes Alex MD Address [address] [place], [place] [phone] Care Team Providers Care Furniture Builder Name Role Phone Orestes Alex Primary Care [...] Orestes Alex MD [address] [place] [phone] 08/25/2024 Orestes Alex Type 2 diabetes mellitus [...] [address], [address], [place], [phone], Provider Name:Orestes javier, 12/04/2024 01:45:00 PM, [address], [address], [place], [phone], Provider Name:Orestes javier, 06/26/2025 07:15:00 AM, [address], [address], [place], [phone], Provider Name:Orestes silvar, 07/03/2025 01:30:00 PM, [address], [address], [place], [phone], Progress Notes * Delia CAT WDOB:1935 (89 yo M)Acc No.[id number]:08/25/2024 Progress Notes Patient:?Delia CAT W Provider:?Orestes Alex MD :1935???Age:89 Y???Sex:Male Wayne e:08/25/2024 Address:[address] [place] [address], [place], [id number] Subjective: * Chief Complaints: * ???2 MO [...] only sleep for 20 mins?? * Procedure Codes:?61972 ASSAY , GLUCOSE, BLOOD QUANT, Modifiers: QW * Follow Up:?3 Months * * Sign off status: Completed true * Provider:?Orestes Alex MD Date:?0 08/25/2024 Generated for Morelia martell/Bernardino/Reynaitting on:?10/29/2024 02:51 PM EDT History and Physical Notes * [...]
--- OUTSIDE RECORDS SUMMARY | 2024-10-29 14:52 | XMS_ITS | Continuity of Care Document ---
Author Organization [facility] Address [address] [place] [address] Phone Care Team Providers Care Restaurant Assistant Name Role Phone [facility] [place] Unavailable Unavailable Procedures Procedure Date STRESS ECHO W/PHY SUP/REPT DOPPLER ECHO EXAM, HEART DOPPLER COLOR FLOW ADD-ON Advance Directives Directive Yes / No Effective Date File Name No Information Encounters Encounter Description Practice Location Reason(s) For Visit Diagnoses Date Provider Providers Copied on Encounter [facility], [address], [place], [address], [place] tel:[phone] [facility] No Information BEVERLY DAVILA [facility] [place]. [address], [facility], [place], [place], [id number], [place]. tel:[phone] [facility], [address], [place], [address], [place] tel:[phone] [facility] Shortness of Breath BEVERLY DAVILA [facility] [place]. [address], [facility], [place], [place], [address], [place]. tel:[phone] Referring Provider: Cherie Badillo NP [facility], [address] [facility], [place], [address]. tel:[phone] Family History Family Member Type Diagnosis Age At Onset No Information Payers Payer name Insurance type Covered republican ID Authorgricel lora(s) Medicare Part B [id number] [facility] Out Of Area [id number] Social History Type Description Quantity Date Captured [...]
--- OUTSIDE RECORDS SUMMARY | 2024-10-29 14:52 | XMS_ITS ---
Author Organization [facility] Address [address] [place] [address] Care Team Providers Care Take Away Worker Name Role Phone Orestes Alex MD Primary Care Provider UnavaXenia Rice Unavailable [phone] REASON FOR VISIT bought product Encounters Encounter Location Date Provider Diagnosis [address] [address] 02/14/2024 Xenia Hernández Plan Of Treatment Next Appt Details Provider Name:Xenia Jackson Edgar , 12/04/2024 01:00:00 PM, [address] [place], [address], Progress Notes * STEPHANIARichard WDOB:1935 (88 yo M)Acc No.[id number]:02/14/2024 Patient:?Richard Chávez Thiago :1935???Age:88 Y???Sex:Male Address:[address] [place] [address] * true * Date:? Generated for Printi ng/Faxing/eTransmitting on:?10/29/2024 02:52 PM EDT
--- OUTSIDE RECORDS SUMMARY | 2024-10-29 14:52 | XMS_ITS | Patient Health Record ---
Author Organization [facility] Address [address] [facility] [place] [address] Care Team Providers Care Parts Back Counter Man Name Role Phone Orestes Alex MD Primary Care Provider Yakelin Hernández, Xenia Unavailable [phone] Allergies Allergen (clinical drug ingredient) Drug/Non Drug [...] Problem Acquired hammer toe of right foot (114514162401075 5) Other hammer toe(s) (acquired), right foot (M20.41) Active confirmed Problem Acquired hammer toe of left foot (800086383543730 3) Other hammer toe(s) (acquired), left foot (M20.42) Active confirmed Problem Type II diabetes mellitus without complication (124708690) Type 2 diabetes mellitus without complications (E11.9) Active confirmed Problem Acquired deformity of right foot (513954615430056 00) 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) Active confirmed Problem Acquired deformity of left foot (508773731512375 04) PlantarFlexion of metatarsal of left foot (M21.6X2) Active confirmed Vital Signs Blood pressure diastolic 67 mm Hg 05/26/2024 Height 5 ft 10 in in 05/26/2024 Blood pressure systolic 157 mm Hg 05/26/2024 Weight 155 lbs 05/26/2024 BMI 22.24 kg/m2 05/26/2024 Procedures Procedure Date Ordered Date Performed Result Body Sit e 21986-RGQVBFL NAIL, 6 OR MORE 02/14/2024 N/A 74117-LVWXVNI NAIL, 6 OR MORE 05/26/2024 N/A 51580-Xiaxffht Plate 05/26/2024 N/A 85590-Hcvcfkil Plate Each Additional 05/26/2024 N/A Encounters Encounter Location Date [facility] [address] 02/14/2024 Xenia Black Tinea unguium B35.1 ; Type 2 diabetes mellitus without complications E11.9 ; Pain in right toe(s) M79.674 and Pain in left toe(s) M79.[address] [address] 05/26/2024 Xenia Black Tinea unguium B35.1 ; Ingrown nail L60.0 ; Type 2 diabetes mellitus without complications E11.9 ; Pain in right toe(s) M79.674 and Pain in left toe(s) M79.[address] [address] 02/14/2024 Xenia Black Assessments Encounter Date Diagnosis [...] X ray : Foot, right 3V 02/26/2013 20360-OTSEADU NAIL, 6 OR MORE 04/30/2017 85638-ICKKNWZ NAIL, 6 OR MORE 06/18/2017 62664-TNUMZGX NAIL, 6 OR MORE 02/28/2018 89252-PUWRBZH NAIL, 6 OR MORE 05/27/2018 90450-EPDMQOQ NAIL, 6 OR MORE 08/26/2018 32579-PBFRJVI NAIL, 6 OR MORE 11/14/2018 60322-KMSWMOI NAIL, 6 OR MORE 02/13/2019 81640-MMYMBPN NAIL, 6 OR MORE 05/19/2019 22958-IGPPBWL NAIL, 6 OR MORE 10/16/2019 69015-XOJUIQW NAIL, 6 OR MORE 01/22/2020 84283-IEHAOGY NAIL, 6 OR MORE 04/26/2020 75516-VXPLNFJ NAIL, 6 OR MORE 08/02/2020 05953-ULWWYSS NAIL, 6 OR MORE 10/28/2020 88338-FPXPZYH NAIL, 6 OR MORE 01/27/2021 29695-KJCKOIT NAIL, 6 OR MORE 05/09/2021 40282-IZUCVUS NAIL, 6 OR MORE 08/25/2021 12961-UYFVKNQ NAIL, 6 OR MORE 03/09/2022 35027-OCTNINV NAIL, 6 OR MORE 06/22/2022 51876-ADTUDDD NAIL, 6 OR MORE 10/23/2022 22955-XGHWZXD NAIL, 6 OR MORE 11/28/2021 84172-EKRMHPT NAIL, 6 OR MORE 02/22/2023 76248-NGTZDXT NAIL, 6 OR MORE 07/19/2023 51727-JDNMWPA NAIL, 6 OR MORE 10/25/2023 63714-WRAGTUM NAIL, 6 OR MORE 02/14/2024 42214-FZZIMJH NAIL, 6 OR MORE 05/26/2024 15383-Tyikdizx Plate 05/26/2024 24200-Dfdsmdpu Plate 10/25/2023 75894-Tcznhysq Plate 07/19/2023 84880-Nxvleuwm Plate 02/22/2023 84875-Ocfgntaz Plate 11/28/2021 31670-Fjykdocs Plate 08/25/2021 15204-Abuhywus Plate 10/28/2020 45248-Mfbwxihk Plate Each Additional 19898 I&D ABSCESS- SIMPLE,SINGLE 022 67303 I&D ABSCESS- SIMPLE,SINGLE 021 97111 I&D ABSCESS- SIMPLE,SINGLE 021 79694-Gbzh. Subungual Hematoma 9 Nail Panel 04/30/2017 Next Appt Details Provider Name:Xenia Hernández , 12/04/2024 01:00:00 PM, [address] [place], [address], Insurance Providers Payer Name Payer Address Payer Phone Subscriber Number Group Number Insured Name Patient Relationship to Insured Coverage Start Date Coverage End Date Medicare National Govt Sv[employer] [address] [facility] [place] [address] [id number] Richard Chávez Self - patient is the insured [address] [employer] [facility] [address] [place] [address] [phone] [id number] Richard Chávez Self - patient is the insured Medical (General) History Medical History History ICD Code thyroid disorder chicken pox measles mumps joint implants/screws Warts Back,Hip,and Knee pain Cataracts Diabetic Gout Surgical History Surgery Date(Month/Year) finger surgery 2009 Thumb Surgery 2013 nose L side 2016 biopsy on face spot 10/25/20 aortic valve replacement 01/2022
--- OUTSIDE RECORDS SUMMARY | 2024-10-29 14:52 | XMS_ITS ---
Author Organization Orestes Alex MD Address [address] [place] [phone] Care Team Providers Care Chocolate Packer Name Role Phone Orestes Alex Primary Care Provider REASON FOR VISIT refill Medications Medication SIG (Take, Route, Fr equency, Duration) Notes Start Date End Date Status FeroSul 325 (65 Fe) MG TAKE 1 TABLET BY MOUTH EVERY DAY Orally for 90 days Active Encounters Encounter Location Date Provider Diagnosis Orestes Alex MD [address] [place], [place] [phone] 10/02/2024 Orestes Alex Plan Of Treatment Medication Medication Name Sig Start Date Stop Date Notes FeroSul 325 (65 Fe) MG TAKE 1 TABLET BY MOUTH EVERY DAY Orally for 90 days Next Appt Details Provider Name:Orestes javier, 11/28/2024 08:00:00 AM, [address], Suite [facility], [place], [place], [phone], Provider Name:Orestes Linda ier, 12/04/2024 01:45:00 PM, [address], [address], [place], [phone], Provider Name:Orestes Linda ier, 06/26/2025 07:15:00 AM, [address], [place], [phone], Provider Name:Orestes Linda ier, 07/03/2025 01:30:00 PM, [address], [address], [place], [phone], Progress Notes * Delia CAT WDOB:1935 (89 yo M)Acc No.[id number]:10/02/2024 Patient:?Delia CAT W :1935???Age:89 Y???Sex:Male Address:[address] [place] [address], [place] [address] * Refills? Refill FeroSul Tablet, 325 (65 Fe) MG, Orally, 90, TAKE 1 TABLET BY MOUTH EVERY DAY, 90 days, Refills=3 * true * Date:? Generated for Mroelia martell/Bernardino/eTransmitting on:?10/29/2024 02:51 PM EDT
--- OUTSIDE RECORDS SUMMARY | 2024-10-29 14:53 | XMS_ITS | Patient Health Record ---
Author Organization Orestes Alex MD Address [address] [place], [place] [id number] Care Team Providers Care Recreation Coordinator Name Role Phone Orestes Alex Primary Care Provider Allergies No Known Allergies Results Component Value Reference Range Notes Hemoglobin A1c Reviewed date:01/28/2024 10:28:34 AM Interpretation: Performing Lab: Notes/Report: Hemoglobin A1c 9.1 Complete Blood Count Auto Di ff Reviewed date:06/20/2024 05:40:23 PM Interpretation: Performing Lab:[facility], [address] [place] [phone] Notes/Report: White Blood Count 7.8 4.8-10.8 X10*3/uL [...] NRBC Abs Auto 0.000 0.0-0.012 X10*3/uL Comprehensive [place]. Panel Fa st Reviewed date:06/27/2024 01:10:00 PM Interpretation:[place] 06/27/24 Performing Lab:[facility], [address] [place] [phone] Notes/Report: Sodium 142 135-145 mmol/L Potassium 4.3 [...] Panel Reviewed date:06/20/2024 05:16:22 PM Interpretation: Performing Lab:[address] [address] Notes/Report: Triglycerides 117 <150 mg/dL Desirable Triglyceride: [...] (Free>4and<10) Reviewed date:06/20/2024 05:11:58 PM Interpretation: Performing Lab:[address] [address] Notes/Report: PSA,Total (Free>4and<10) 0.38 0.00-4.00 ng/mL A [...] between 4.0 and 10.0 ng/mL. PSA methodology: Muzicall i Chemiluminescent Microparticle Immunoassay (CMIA) Microalbumin, Random Reviewed date:06/20/2024 05:11:49 PM Interpretation: Performing Lab:[facility], [address] [place] [phone] Notes/Report: Creatinine Urine 93.86 Microalbumin Urine 107.0 Microalbum/Creatinine Ratio Ur 113.9 <30 ug/mg cr Albumin/Creatinine Ratio Reference Ranges: Normal: < 30 ug/mg creatinine Microalbuminuria: 30 - 300 ug/mg creatinine Clinical Albuminuria: > 300 ug/mg creatinine Hemoglobin A1c Reviewed date:06/20/2024 05:12:06 PM Interpretation: Performing Lab:[facility], [address] [place] [phone] Notes/Report: Hemoglobin A1c % 7.3 <6.0 % [...] average glucose, using the formula of the O2V-Rikktlp Average Glucose study (ADAG), Diabetes Care, Vol.31,#8, Jan. 2007 UA ClnCatch+Micro w/rflx Cul t Reviewed date:06/20/2024 05:38:57 PM Interpretation: Performing Lab:[facility], [address] [place] [phone] Notes/Report: Urine, Clean Catch Color Urine Yellow Appearance Urine Clear PH 5.5 5.0-9.0 Glucose Urine UA Negative Negative mg/dL Urine Blood Negative Negative Specific [place] - Urine 1.020 1.005-1.025 Urine Protein Trace [...] ff Reviewed date:11/13/2023 04:27:25 PM Interpretation: Performing Lab:[facility], [address] [place] [phone] Notes/Report: White Blood Count 9.5 4.8-10.8 X10*3/uL [...] Panel Reviewed date:11/15/2023 12:49:05 PM Interpretation: Performing Lab:[address] [address] Notes/Report: Sodium 142 135-145 mmol/L Potassium 4.1 [...] Estimated Glomerular Filt Rate 53 NOTE: For -Palau[place] individuals, multiply the result by 1.210. Chronic [...] Magnesium Reviewed date:11/13/2023 02:26:31 PM Interpretation: Performing Lab:[facility], [address] [place] [phone] Notes/Report: Magnesium 1.6 1.6-2.6 mg/dL Troponin-I High Sensitivity Reviewed date:11/13/2023 02:26:11 PM Interpretation: Performing Lab:[address] [address] Notes/Report: Troponin-I High Sensitivity 9.3 <3.5-35.0 ng/L The Joseph high sensitivity Troponin-I results should be used in conjunction with other diagnostic information such as ECG, clinical observations and information, and patient symptoms to aid in the diagnosis of [place]. Lipase Reviewed date:11/13/2023 02:26:01 PM Interpretation: Performing Lab:[facility], [address] [place] [address] Notes/Report: Lipase 30 8-78 U/L CT cervical spine wo con Reviewed date:11/13/2023 04:24:54 PM Interpretation: Performing Lab: Notes/Report: [facility] [address] [facility] [place] [address] CT Scan Report Signed Patient: Delia Chávez MR#: [id number] : 1935 Acct:[id number] Age/Sex: 88 / M ADM Date: 11/13/23 Loc: HO.ED Attending Dr: Ordering Physician: Vida Harrison Date of Service: 11/13/23 Procedure(s): CT cervical spine wo IV con Accession Number(s): [id number] cc: Orestes Alex MD; Vida Harrison EXAMINATION: [...] by Flaquita López MD in OV> 11/13/23 9348 DD/ 1415 TD/TT: Lan Manager: [address] [address] [address] Scan Report Signed Patient: Delia Chávez MR#: [id number] : 1935 Acct:[id number] Age/Sex: 88 / M ADM Date: 11/13/23 Loc: HO.ED Attending Dr: Ordering Physician: Vida Harrison Date of Service: 11/13/23 Procedure(s): CT cervical spine wo IV con Accession Number(s): [id number] cc: Orestes Alex MD; Vida Harrison EXAMINATION: [...] in OV> 11/13/23 1456 DD/ 1415 TD/TT: Lan Manager: CT head/brain wo con Reviewed date:11/13/2023 04:24:26 PM Interpretation: Performing Lab: Notes/Report: [address] [address] [address] Scan Report Signed Patient: Delia Chávez MR#: [id number] : 1935 Acct:[id number] Age/Sex: 88 / M ADM Date: 11/13/23 Loc: HO.ED Attending Dr: Ordering Physician: Vida Harrison Date of Service: 11/13/23 Procedure(s): CT head/brain wo IV con Accession Number(s): [id number] cc: Orestes Alex MD; Vida Harrison EXAMINATION: [...] in OV> 11/13/23 1456 DD/ 1415 TD/TT: Lan Manager: [place] [address] CT Scan Report Signed Patient: Delia Chávez MR#: [id number] : 1935 Acct:[id number] Age/Sex: 88 / M ADM Date: 11/13/23 Loc: HO.ED Attending Dr: Ordering Physician: Vida Harrison Date of Service: 11/13/23 Procedure(s): CT head/brain wo IV con Accession Number(s): [id number] cc: Orestes Alex MD; Vida Harrison EXAMINATION: [...] in OV> 11/13/23 1456 DD/ 1415 TD/TT: Lan Manager: CT facial bones wo con Reviewed date:11/13/2023 04:24:46 PM Interpretation: Performing Lab: Notes/Report: [place] [address] [address] Scan Report Signed Patient: Delia Chávez MR#: [id number] : 1935 Acct:[id number] Age/Sex: 88 / M ADM Date: 11/13/23 Loc: HO.ED Attending Dr: Ordering Physician: Vida Harrison Date of Service: 11/13/23 Procedure(s): CT facial bones wo IV con Accession Number(s): [id number] cc: Orestes Alex MD; Vida Harrison EXAMINATION: [...] in OV> 11/13/23 1456 DD/ 1415 TD/TT: Lan Manager: [address] [address] [address] Scan Report Signed Patient: Delia Chávez MR#: [id number] : 1935 Acct:[id number] Age/Sex: 88 / M ADM Date: 11/13/23 Loc: HO.ED Attending Dr: Ordering Physician: Vida Harrison Date of Service: 11/13/23 Procedure(s): CT fac ial bones wo IV con Accession Number(s): [id number] cc: Orestes Alex MD; Vida Harrison EXAMINATION: [...] in OV> 11/13/23 1456 DD/ 1415 TD/TT: Lan Manager: XR chest 2V Reviewed date:11/14/2023 07:14:59 PM Interpretation: Performing Lab: Notes/Report: [address] [address] XRay Report Signed Patient: Delia Chávez MR#: [id number] : 1935 Acct:[id number] Age/Sex: 88 / M ADM Date: 11/13/23 Loc: HO.ED Attending Dr: Ordering Physician: Vida Harrison Date of Service: 11/13/23 Procedure(s): XR chest 2V Accession Number(s): [id number] cc: Orestes Alex MD; Vida Harrison EXAMINATION: [...] in OV> 11/13/23 1635 DD/ 1420 TD/TT: Lan Manager: SURINDER [address] [address] XRay Report Signed Patient: Delia Chávez MR#: [id number] : 1935 Acct:[id number] Age/Sex: 88 / M ADM Date: 11/13/23 Loc: HO.ED Attending Dr: Ordering Physician: Vida Harrison Date of Service: 11/13/23 Procedure(s): XR [address] 2V Accession Number(s): [id number] cc: Orestes Alex MD; Vida Harrison EXAMINATION: [...] in OV> 11/13/23 1635 DD/ 1420 TD/TT: Assignment Agent ist: DJ XR chest 2V (Not yet reviewe d by provider) Interpretation: Performing Lab: Notes/Report: [address] [address] XRay Report Signed Patient: Delia Chávez MR#: [id number] : 1935 Acct:[id number] Age/Sex: 89 / M ADM Date: 10/28/24 Loc: HO.XRAY Attending Dr: Cm Rivas NP Ordering Physician: Cm Rivas NP Date of Service: 10/28/24 Procedure(s): XR chest 2V Accession Number(s): [id number] cc: Orestes Alex MD; Cm Rivas NP [...] 10/28/24 1550 DD/ 1536 TD/TT: 10/28/24 1542 Lan Manager: [place] [address] XRay Report Signed Patient: Delia Chávez MR#: [id number] : 1935 Acct:[id number] Age/Sex: 89 / M ADM Date: 10/28/24 Loc: DYLAN Attending Dr: Cm Rivas NP Ordering Physician: Cm Rivas NP Date of Service: 10/28/24 Procedure(s): XR [address] 2V Accession Number(s): [id number] cc: Orestes Alex MD; Cm Rivas NP [...] 10/28/24 1550 DD/ 1536 TD/TT: 10/28/24 1542 Lan Manager: Reason For Referral No Information Medications Medication [...] Shingrix IM Intramuscular 12/06/2017 Administered [facility] Kory Rosario Fluarix Quadrivalent IM Intramuscular 03/05/2018 [...] W/U Status Risk Notes Problem Atrial fibrillation (40840167) Atrial fibrillation (I48.91) Active confirmed Problem 244525860 Thrombocytopenia (D69.6) Active confirmed Problem 53714160 Lymphocytosis (D72.820) Active confirmed Problem 17670259 Prostatism (N40.0) Active confirmed Problem Insomnia (683120763) Insomnia (G47.00) Active confirmed Problem 04874003 Hypercalcemia (E83.52) Active confirme d Problem 6836074 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 Problem 99396516 Essential hypert ension (I10) Active confirmed Problem 364150700 Acquired hypothyroidism (E03.9) Active confirmed Problem 60050562 Type 2 diabetes mellitus without complication (E11.9) Active confirmed Problem 678795017 Hypoglycemia (E16.2) Active confirmed Problem 08467500 Iron deficiency anemia, unspecified iron deficiency anemia type (D50.9) Active confirmed Problem 370418687 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 Problem Aortic valve disorder (4492418) Severe aortic stenosis (I35.0) Active confirmed Problem 248953184 Rising PSA level (R97.20) Active confirmed Problem 271427195 Pure hypercholesterolemia (E78.00) Active confirmed Problem 214598618 Imbalance (R26.89) Active confirmed Problem 744864734 Frequent falls (R29.6) Active confirm ed Problem History of heart valve repair with prosthesis (30643612417489 8) H/O aortic valve replacement (Z95.2) Active confirmed Problem 99150245 Aneurysm artery, 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 Vital Signs Blood pressure diastolic 66 mm Hg 08/25/2024 Height 67 in 08/25/2024 Blood pressure systolic 128 mm Hg 08/25/2024 Weight 164 lbs 08/25/2024 BMI 25.68 kg/m2 08/25/2024 Encounters Encounter Location Date Provider Diagnosis Orestes Alex MD [address] [place] [id number] 02/18/2024 Orestes Alex Encounter for immuni zation Z23 Orestes Alex MD [address] [place] [id number] 06/20/2024 Orestes Alex Acquired hypothyroid ism E03.9 ; Type 2 diabetes mellitus without complication E11.9 ; Prostatism N40.0 ; Essential hypertension I10 ; Pure hypercholesterolemia E78.00 and Lymphocytosis D72.820 Orestes Alex MD [address] [place] [id number] 06/27/2024 Orestes Alex Elevated BUN R79.9 ; Type 2 diabetes mellitus without complication E11.9 ; Essential hypertension I10 ; Prostatism N40.0 ; Pure hypercholesterolemia E78.00 ; Colon cancer screening Z12.11 ; Depression screening Z13.31 and Atrial fibrillation I48.91 Orestes Alex MD [address] [place] [id number] 07/24/2024 Orestes Alex Elevated BUN R79.9 Orestes Alex MD [address] [place] [id number] 11/19/2023 Orestes Alex Frequent falls R29.6 and Hematoma T14.8XXA Orestes Alex MD [address] [place] [id number] 11/27/2023 Orestes Alex Frequent falls R29.6 and Hematoma T14.8XXA Orestes Alex MD [address] [place] [id number] 12/11/2023 Orestes Alex Type 2 diabetes [place] itus without complication E11.9 Orestes Alex MD [address] [id number] 01/28/2024 Orestes Alex Type 2 diabetes [place] itus without complication E11.9 and Primary insomnia F51.01 Orestes Alex MD [address] [place] [id number] 03/17/2024 Orestes Alex Type 2 diabetes [place] itus without complication E11.9 and Frequent falls R29.6 Orestes Alex MD [address] [id number] 08/25/2024 Orestes Alex Type 2 diabetes [place] itus without complication E11.9 and Insomnia G47.00 Orestes Alex MD [address] [id number] 11/15/2023 Orestes Alex MD [address] [id number] 10/02/2024 Orestes Alex Assessments Encounter Date Diagnosis [...] Details Provider Name:Orestes javier, 11/28/2024 08:00:00 AM, [address] [place] [address], [address], [phone], Provider Name:Orestes javier, 12/04/2024 01:45:00 PM, [address] [place] [address], [address], [phone], Provider Name:Orestes javier, 06/26/2025 07:15:00 AM, [address] [place] [address], [address], [phone], Provider Name:Orestes javier, 07/03/2025 01:30:00 PM, [address] [place] [address], [address], [phone], Insurance Providers Payer Name Payer Address Payer Phone Subscriber Number Group Number Insured Name Patient Relationship to Insured Coverage Start Date Coverage End Date MEDICARE [employer] [place] [address] [place] [address] [id number] Delia Chávez Self - patient is the insured [employer] OF [employer] [address] [place] [address] [id number] Delia Chávez Self - patient is the insured Medical (General) History Medical History History ICD Code Hypothyroidism type II diabetes hypercholesterolemia colonoscopy 2008 not to have any more; C olonoscopy 01/09/19 - Dr. Allen cardiac cath october 2016 entirely normal benjaminip is esteban
== END ==
LOC: HO.CARD 14:44
PROVIDERS: PCP Internal Medicine
DX: Z95.2 Presence of prosthetic heart valve (principal)
CPT/HCPCS: 93306

== ENCOUNTER → 2024-10-29 14:47 | Outpatient (BNV) | payer MEDICARE, SELFPAY ==
[2024-10-27 08:40] VITALS: BP 122/60; BP 134/60; BMI 24.7
== END ==
PROVIDERS: PCP Internal Medicine; Visit Provider Internal Medicine Cardiovascular Disease
DX: I27.20 Pulmonary hypertension, unspecified (principal); I51.7 Cardiomegaly; Z95.3 Presence of xenogenic heart valve
CPT/HCPCS: 93306

== ENCOUNTER 2024-12-01 10:18 | Outpatient (REF) | payer MEDICARE, SELFPAY ==
[2024-10-27 08:40] VITALS: BP 122/60; BP 134/60; BMI 24.7
--- OUTSIDE RECORDS SUMMARY | 2024-12-01 04:00 | XMS_ITS ---
Author Organization Orestes Alex MD Address [address] [place] [phone] Care Team Providers Care Employee Relations Specialist Name Role Phone Orestes Alex Primary Care Provider REASON FOR VISIT FASTING LIPIDS Encounters Encounter Location Date Provider Diagnosis Orestes lAex MD [address] [place] [id number] 12/01/2024 Orestes Alex Pure hypercholestero lemia E78.00 Assessments Encounter Date Diagnosis (ICD Code) Assessment Notes Treatment Notes Treatment Clinical Notes Section Notes 12/01/2024 Pure hypercholesterolemia (ICD-10 - E78.00) Plan Of Treatment Pending Test Test Name Order Date Liver Panel 12/01/2024 Lipid Panel with Reflex 12/01/2024 Next Appt Details Provider Name:Orestes javier, 12/04/2024 01:45:00 PM, [address], [place], [place], [phone], Provider Name:Orestes Linda ier, 06/26/2025 07:15:00 AM, [address], [place], [place], [phone], Provider Name:Orestes Linda ier, 07/03/2025 01:30:00 PM, [address], [address], [place], [phone], Progress Notes * Delia CAT WDOB:1935 (89 yo M)Acc No.[id number]:12/01/2024 Progress Note Patient: Delia HERRERA Provider: Nicolette Alex MD :1935 A ge:89 Y S ex:Male Date:12/01/2024 Address:[address] [place] [address], [facility], [id number] Subjective: * Chief Complaints: * 1 . FASTING LIPIDS. * Medical History: Objective: * Vitals: Assessment: * Assessment: 1. P ure hypercholesterolemia - E78.00 (Primary) Plan: * Treatment: * Procedure Codes: 3 6415 VENIPUNCT, ROUTINE* * * The named appointment provid er may or may not be the originator of this progress note, and it is not deemed complete until electronically signed by the appointment provider. Sign off status: Pending * Provider: Nicolette Alex MD Date: 12/01/2024 Generated for Morelia martell/Bernardino/Reynaitting on: 12/01/2024 08:57 AM EDT
[2024-12-01 11:20] LABS: Alanine Aminotransferase 23 U/L (0-40); Albumin Level 3.9 g/dL (3.5-5.0); Alkaline Phosphatase 195 U/L (39-117); Aspartate Amino Transferase 41 U/L (5-37); Bilirubin Direct 0.4 mg/dL (0.0-0.5); Bilirubin Total 0.9 mg/dL (0.0-1.0); Cholesterol 128 mg/dL (<200); HDL Cholesterol 34 mg/dL (>40); LDL Cholesterol Calculated 69 mg/dL (<100); Total Protein 7.3 g/dL (6.5-8.0); Triglycerides 127 mg/dL (<150)
[2024-12-01 13:39] LABS: Reflex LDLD? No
== END 2024-12-01 10:19 | disposition home or self-care (01) ==
LOC: HO.LNP 10:18
PROVIDERS: Visit Provider Internal Medicine
DX: E78.00 Pure hypercholesterolemia, unspecified (principal)
CPT/HCPCS: 80061; 80076

== ENCOUNTER 2024-12-23 13:42 | Outpatient (AMB) | payer MEDICARE, SELFPAY ==
--- OUTSIDE RECORDS SUMMARY | 2010-08-11 07:08 | XMS_ITS | Continuity of Care Document ---
Author Organization [facility] Address [address] [place] [address] Phone Care Team Providers Care Steel Fitter Name Role Phone BEVERLY DAVILA [facility], [place] Unavailable Unavailable Procedures Procedure Date STRESS ECHO W/PHY SUP/REPT DOPPLER ECHO EXAM, HEART DOPPLER COLOR FLOW ADD-ON Advance Directives Directive Yes / No Effective Date File Name No Information Encounters Encounter Description Practice Location Reason(s) For Visit Diagnoses Date Provider Providers Copied on Encounter [facility], [address], [place], [address], [place] tel:[phone] [facility] Office No Information BEVERLY DAVILA [facility] [place]. [address], [facility], [place], [place], [address], [place]. tel:[phone] [facility], [address], [place], [address], [place] tel:[phone] [facility] Office Shortness of Breath BEVERLY DAVILA [facility] [place]. [address], [facility], [place], [place], [address], [place]. tel:[phone] Referring Provider: Cherie Badillo NP [facility], [address] [facility], [place], [address]. tel:[phone] Family History Family Member Type Diagnosis Age At Onset No Information Payers Payer name Insurance type Covered republican ID Authorgricel lora(s) Medicare Part B [id number] [facility] Out Of Area [id number] Social History Type Description Quantity Date Captured [...]
--- OUTSIDE RECORDS SUMMARY | 2024-09-01 09:00 | XMS_ITS ---
Author Organization [facility] Address [address] [place] [address] Care Team Providers Care Airline Reservation Agent Name Role Phone Orestes Alex MD Primary Care Provider Xenia Rojas [phone] Mark Encounters Encounter Location Date Provider Diagnosis [address] [address] 09/01/2024 Xenia Hernández Plan Of Treatment Next Appt Details Provider Name:Xenia Hernández , 03/05/2025 11:15:00 AM, [address] [place] [address], [phone], Progress Notes * Richard CAT WDOB:1935 (89 yo M)Acc No.[id number]:09/01/2024 Progress Note Patient: Richard HERRERA Provider: Sherita Hernández DPM :1935 A ge:89 Y S ex:Male Date:09/01/2024 [address] [id number] Pcp:Orestes Alex MD Subjective: * Chief Complaints: [...] 09/01/2024 Generated for Morelia Ortega on: 0 12/23/2024 03:03 PM EDT
[2024-10-27 08:40] VITALS: BP 122/60; BP 134/60; BMI 24.7
--- OUTSIDE RECORDS SUMMARY | 2024-12-01 04:00 | XMS_ITS ---
Author Organization Orestes Alex MD Address [address] [place], [place] [phone] Care Team Providers Care Quantometer Operator Name Role Phone Orestes Alex Primary Care Provider Results Component Value Reference Range Notes Liver Panel Reviewed date:12/01/2024 05:23:44 PM Interpretation: Performing Lab:[facility], [address] [place] [phone] Notes/Report: Bilirubin Total 0.9 0.0-1.0 mg/dL Bilirubin Direct 0.4 0.0-0.5 mg/dL Aspartate Amino Transferase 41 5-37 U/L Alanine Aminotransferase 23 0-40 U/L Total Protein 7.3 6.5-8.0 g/dL Albumin Level 3.9 3.5-5.0 g/dL Alkaline Phosphatase 195 39-117 U/L Lipid Panel with Reflex Reviewed date:12/02/2024 08:16:58 AM Interpretation: Performing Lab:[facility], [address] [place] [address] Notes/Report: Triglycerides 127 <150 mg/dL Desirable Triglyceride: less than 150 mg/dL Borderline High Triglyceride 150-199 mg/dL High Triglyceride: 200-499 mg/dL Very High Triglyceride: greater than or equal to 5OO mg/dL Cholesterol 128 <200 mg/dL Desirable Cholesterol: less than 200 mg/dL Borderline High Cholesterol: 200-239 mg/dL High Cholesterol: greater than 239 mg/dL LDL Cholesterol Calculated 69 <100 mg/dL Desirable LDL: less than 100 mg/dL Near Optimal/Above Optimal LDL: 110-129 mg/dL Borderline High LDL: 130-159 mg/dL High LDL: 160-189 mg/dL Very High LDL: greater than or equal to 190 mg/dL HDL Cholesterol 34 >40 mg/dL Desirable HDL: greater than 40 mg/dL Note: This HDL assay may give artificially low results in patients with liver disease. REASON FOR VISIT FASTING LIPIDS Encounters Encounter Location Date Provider Diagnosis Orestes Alex MD [address] [place] [phone] 12/01/2024 Orestes Alex Pure hypercholestero lemia E78.00 Assessments Encounter Date Diagnosis (ICD Code) Assessment Notes Treatment Notes Treatment Clinical Notes Section Notes 12/01/2024 Pure hypercholesterolemia (ICD-10 - E78.00) Plan Of Treatment Next Appt Details Provider Name:Orestes javier, 01/02/2025 08:45:00 AM, [address] [place] [address], [phone], Provider Name:Orestes javier, 06/26/2025 07:15:00 AM, [address] [place] [address], [phone], Provider Name:Orestes javier, 07/03/2025 01:30:00 PM, [address] [place] [address], [phone], Progress Notes * Delia CAT WDOB:1935 (89 yo M)Acc No.[id number]:12/01/2024 Progress Note Patient: Delia HERRERA Provider: Nicolette Alex MD :1935 A ge:89 Y S ex:Male Date:12/01/2024 Address:[address] [place] [address], [place], [place] Subjective: * Chief Complaints: * 1 . [...] Pending * Provider: Nicolette Alex MD Date: 0 12/01/2024 Generated for Morelia martell/Bernardino/Reynaitting on: 0 12/23/2024 03:02 PM EDT
--- NOTE | 2024-12-23 14:12 | A.OFFVIS_ITS ---
Vital Signs 12/23/24 14:13 Height 5 ft 10 in Weight 150 lb 4 oz BMI 21.6 BP 98/52 L Blood Pressure Location Rt brachial Position Sitting Pulse 55 Pulse Source Pulse Oximeter Pulse Oximetry (%) 94 Oxygen Delivery Method Room Air Intake Visit Reasons: COPD/ SOB Allergies No Known Allergies (No Known Allergies*) Allergy (Verified 12/23/24 14:17) HPI HPI COPD/ SOB: Details: Richard is a pleasant 89 year old male, former smoker, with underlying h/o aortic stenosis s/p TAVR 2021, hypertension, diabetes, hyperlipidemia and hypothyroidism. He was referred by cardiology for pulmonary evaluation for dyspnea and recent CXR suggestive of COPD. The shortness of breath has been ongoing for a year, with occasional severe coughing episodes but no congestion or wheezing. The patient has a history of asthma that began after high school and a significant smoking history from 60 years ago, primarily using a pipe. A recent chest x-ray suggested COPD, but the patient has not been on any respiratory medications previously. He denies history of recurrent respiratory infections however symptoms suggestive of chronic bronchitis. Denies any symptoms suggestive of an infectious process at this time such as chest congestion, fevers or chills. Denies any occupational exposures. Denies seasonal allergies. Denies any pertinent family history. ON LICENSE OF [facility] Medical History Hypercalcemia TAYLOR (acute kidney injury) Acute hyperglycemia HTN (hypertension) Aortic stenosis Arthritis of right knee Calcific tendinitis of left shoulder Orthostasis (~2014) Diabetes mellitus (~2014) Knee effusion (~11/15/14) Hyperlipidemia (~2012) Hypothyroidism (~2012) Surgical History S/P TAVR (transcatheter aortic valve replacement) S/P wrist surgery History of cardiac cath Family History Father No problems noted. 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) Alcohol intake: never Patient Tobacco Use Status: Former Tobacco user Tobacco use type: Pipe Years Smoked: 10 Advance Directives Date on File: 11/24/22 service: Yes Current occupational status: retired Current occupation: Right Handed Review of Systems Const Denies chills, Denies excessive sweating, Denies fever(s), Denies headache(s) and Denies night sweats Eyes Denies dry eyes, Denies irritation and Denies itchy eyes ENT Reports Normal hearing present, Denies headache(s), Denies nasal congestion, Denies nasal discharge, Denies post nasal drip and Denies sore throat Card Denies chest pain, Denies chest pain at rest, Denies chest pain with activity, Denies claudication, Denies leg edema, Denies orthopnea and Denies paroxysmal nocturnal dyspnea Resp Denies chest congestion, Denies excessive phlegm production, Denies pain on inspiration, Denies pain with cough, Denies stridor and Denies wheezing Musc Denies myalgias Neuro Reports Normal hearing present and Denies headache(s) Endo Denies excessive sweating Himanshu/Lymph Denies lymphadenopathy Aller/Immun Denies itchy eyes, Denies seasonal rhinorrhea and Denies wheezing Physical Exam Vital Signs: Last Vital Signs Pulse 55 12/23/24 14:13 BP 98/52 L 12/23/24 14:13 Pulse Ox 94 12/23/24 14:13 Oxygen Delivery Method Room Air 12/23/24 14:13 BMI result Body Mass Index 21.6 Const General: cooperative, comfortable, no acute distress and alert Orientation/consciousness: patient oriented x3 Limitations: no limitations HEENT Head: Yes normal to inspection, Yes normocephalic and Yes atraumatic Ears: hearing grossly normal bilaterally and external ears normal Eyes General: appearance normal, both eyes and all related structures Eyelids: Yes eyelids normal Sclerae: sclerae normal EOM: EOMs intact bilaterally Neck Neck: Yes normal visual inspection and Yes no lymphadenopathy Lymphatic: no lymphadenopathy noted Chest Chest palpation & inspection: normal inspection of the chest Resp Effort & Inspection: normal respiratory effort, able to speak in complete sentences, no audible wheezes, no cough, no stridor, not tachypneic, no tripod positioning and no use of accessory muscles Auscultation: clear to auscultation bilaterally Cardio Jugular venous distension: no JVD Rate: regular rate Rhythm: regular rhythm Skin Other: warm, dry General skin exam: no rashes or lesions noted Neuro General: patient oriented x3 Cranial nerves: Yes Normal hearing present Cognition (Neuro): normal cognition Gait exam (Neuro): Normal gait present Extrem General: Yes normal to inspection, Yes capillary refill normal, Yes no clubbing, cyanosis or edema and Yes no pedal edema Psych Appearance: grossly normal and well kempt Speech and movement: Normal speech and movement present and Clear speech present Affect: normal affect Attitude: cooperative Thought process: Normal thought process present Thought content: Normal thought content present Insight: Good insight present (Psych) Judgement: Good judgement present (Psych) Results Reviewed Results Reviewed: [address] [address] XRay Report Signed Patient: Richard Chávez MR#: [id number] : 1935 Acct:[id number] Age/Sex: 89 / M ADM Date: 10/28/24 Loc: [facility] Attending Dr: Cm Rivas NP Ordering Physician: Cm Rivas NP Date of Service: 10/28/24 Procedure(s): XR chest 2V Accession Number(s): [id number] cc: Orestes Alex MD; Cm Rivas NP~ EXAMINATION: XR CHEST CLINICAL INFORMATION: R06.02 - Shortness of breath COMPARISON: 11/13/2023. 11/26/2022. TECHNIQUE: 2 views of the chest were obtained. FINDINGS: The cardiac, hilar, and mediastinal contours are normal. TAVR in place. Aortic mural calcifications. Lungs are diffusely hyperaerated with flattened hemidiaphragms, findings consistent with COPD. There is chronic scarring in both lung bases, and the left upper lobe region. Probable scarring also in the right perihilar region. No focal consolidation. There is no pneumothorax or pleural effusion. There is no focal osseous or soft tissue abnormality. There are degenerative changes within the spine. XR/XR chest 2V IMPRESSION: COPD with chronic changes. No active superimposed disease. Electronically signed by: Tirso Garcia MD 10/28/2024 03:50 PM EDT Assessment & Plan Assessment & Plan (1) SOB (shortness of breath): Code(s): R06.02 - Shortness of breath Category: Medical Plan Richard presents for pulmonary evaluation for ongoing dyspnea, recent chest x-ray suggestive of COPD. Will empirically treat with Breo to manage the symptoms of COPD and reduce the frequency of coughing episodes. The patient is advised to rinse his mouth after using the inhaler to prevent oral thrush. A pulmonary function test is scheduled to assess the severity of COPD. May consider chest CT in the future. All questions were answered and patient is in agreement of plan. Will follow-up in 6-8 weeks or sooner if needed. Orders: Orders PFT pulmonary function test Today R06.02 - Shortness of breath Medications: New fluticasone furoate-vilanterol 100-25 mcg/dose (Breo Ellipta) 1 inh inhalation DAILY 60 ea 3RF Coding Level of Care Code New Pt Level 4 (62721) Diagnoses SOB (shortness of breath) R06.02
[2024-12-23 14:13] VITALS: BP 98/52; PULSE 55; O2SAT 94; BMI 21.6
== END 2024-12-23 15:37 | disposition home or self-care (01) ==
LOC: HO.HPSW 13:42
PROVIDERS: PCP Internal Medicine; Visit Provider Nurse Practitioner Family
DX: R06.02 Shortness of breath (principal)
CPT/HCPCS: 99204

== ENCOUNTER → 2024-12-23 13:42 | Outpatient (BNVA) | payer MEDICARE, SELFPAY ==
[2024-10-27 08:40] VITALS: BP 122/60; BP 134/60; BMI 24.7
== END ==
PROVIDERS: PCP Internal Medicine; Visit Provider Nurse Practitioner Family
DX: R06.02 Shortness of breath (principal)
CPT/HCPCS: 99202

== ENCOUNTER 2024-12-24 14:46 | Inpatient (IN) | payer MEDICARE, SELFPAY ==
--- OUTSIDE RECORDS SUMMARY | 2010-08-11 07:08 | XMS_ITS | Continuity of Care Document ---
Author Organization [facility] Address [address] [place] [address] Phone Care Team Providers Care Director Of Search Engine Marketing Name Role Phone BEVERLY DAVILA [facility] [place] Unavailable Unavailable Procedures Procedure Date STRESS ECHO W/PHY SUP/REPT DOPPLER ECHO EXAM, HEART DOPPLER COLOR FLOW ADD-ON Advance Directives Directive Yes / No Effective Date File Name No Information Encounters Encounter Description Practice Location Reason(s) For Visit Diagnoses Date Provider Providers Copied on Encounter [facility], [address], [place], [address], [place] tel:[phone] [facility] Office No Information BEVERLY DAVILA [facility] [place]. [address], [facility], [place], [place], [address], [place]. tel:[phone] [facility], [address], [place], [address], [place] tel:[phone] [facility] Office Shortness of Breath BEVERLY DAVILA [facility] [place]. [address], [facility], [place], [place], [address], [place]. tel:[phone] Referring Provider: Cherie Badillo NP [facility], [address] [facility], [place], [address]. tel:[phone] Family History Family Member Type Diagnosis Age At Onset No Information Payers Payer name Insurance type Covered democrat ID Authorgricel lora(s) Medicare Part B [id number] [facility] Out Of Area [id number] Social History Type Description Quantity Date Captured [...]
--- OUTSIDE RECORDS SUMMARY | 2024-09-01 09:00 | XMS_ITS ---
Author Organization [facility] Address [address] [place] [address] Care Team Providers Care Perlite Grinder Name Role Phone Orestes Alex MD Primary Care Provider Xenia oRjas [phone] Mark Encounters Encounter Location Date Provider Diagnosis [address] [address] 09/01/2024 Xenia Hernández Plan Of Treatment Next Appt Details Provider Name:Xenia Hernández , 03/05/2025 11:15:00 AM, [address] [place] [address], [phone], Progress Notes * Richard CAT WDOB:1935 (89 yo M)Acc No.[id number]:09/01/2024 Progress Note Patient: Richard HERRERA Provider: Sherita Hernández DPM :1935 A ge:89 Y S ex:Male Date:09/01/2024 Address[address] [id number] Pcp:Orestes Alex MD Subjective: * Chief Complaints: [...] 09/01/2024 Generated for Morelia Ortega on: 0 12/24/2024 04:19 PM EDT
--- OUTSIDE RECORDS SUMMARY | 2024-12-01 04:00 | XMS_ITS ---
Author Organization Orestes Alex MD Address [address] [place], [place] [phone] Care Team Providers Care Community Service Worker Name Role Phone Orestes Alex Primary Care Provider Results Component Value Reference Range Notes Liver Panel Reviewed date:12/01/2024 05:23:44 PM Interpretation: Performing Lab:[facility], [address] [place] [phone] Notes/Report: Bilirubin Total 0.9 0.0-1.0 mg/dL Bilirubin Direct 0.4 0.0-0.5 mg/dL Aspartate Amino Transferase 41 5-37 U/L Alanine Aminotransferase 23 0-40 U/L Total Protein 7.3 6.5-8.0 g/dL Albumin Level 3.9 3.5-5.0 g/dL Alkaline Phosphatase 195 39-117 U/L Lipid Panel with Reflex Reviewed date:12/02/2024 08:16:58 AM Interpretation: Performing Lab:[facility], [address] [place] [address] Notes/Report: Triglycerides 127 <150 mg/dL Desirable Triglyceride: [...] Location Date Provider Diagnosis Orestes Alex MD [address] [place] [phone] 12/01/2024 Orestes Alex Pure hypercholestero lemia E78.00 Assessments Encounter Date Diagnosis (ICD Code) Assessment Notes Treatment Notes Treatment Clinical Notes Section Notes 12/01/2024 Pure hypercholesterolemia (ICD-10 - E78.00) Plan Of Treatment Next Appt Details Provider Name:Orestes javier, 01/02/2025 08:45:00 AM, [address] [place] [address], [phone], Provider Name:Orestes javier, 06/26/2025 07:15:00 AM, [address] [place] [address], [phone], Provider Name:Orestes javier, 07/03/2025 01:30:00 PM, [address] [place] [address], [phone], Progress Notes * Delia CAT WDOB:1935 (89 yo M)Acc No.[id number]:12/01/2024 Progress Note Patient: Delia HERRERA Provider: Nicolette Alex MD :1935 A ge:89 Y S ex:Male Date:12/01/2024 Address:[address] [place] [address], [place], [id number] Subjective: * Chief Complaints: * 1 . [...] 12/01/2024 Generated for Morelia martell/Bernardino/Reynaitting on: 0 12/24/2024 04:18 PM EDT
[2024-12-23 15:15] VITALS: BP 122/60; BP 134/60; BMI 24.7
--- NOTE | ~2024-12-24 | CT_ITS ---
CLINICAL HISTORY: Left lung mass? CT chest without contrast Comparison: CR/SR - XR CHEST 1 VIEW - 12/24/24 15:46 EDT CR/CT/SR - XR CHEST 2V - 10/28/24 15:46 EDT Findings: The heart is enlarged. Abnormal lymph nodes are present within the prevascular and left hilar mediastinum. Moderate atherosclerotic disease of the coronary arteries. Aortic valve replacement noted. There is dense left upper lobe consolidation, somewhat masslike. Additional faint patchy bibasilar density. Airway thickening noted. There is mild paraseptal emphysema. No significant effusion. No pneumothorax. No acute osseous finding. The visualized upper abdomen demonstrates no definite acute process. Impression: Dense somewhat masslike consolidation within the left upper lobe with mediastinal adenopathy as detailed. Suspect this reflects advanced pneumonia, especially given that this was not present on the 10/28/2024 radiograph; however, malignancy is not entirely excluded and close interval follow-up would be recommended. This document has been electronically signed by: Jason James MD on 12/24/2024 21:26:50
--- NOTE | ~2024-12-24 | XR_ITS ---
EXAMINATION: XR CHEST CLINICAL INFORMATION: SOB COMPARISON: October 28, 2024 TECHNIQUE: Frontal view of the chest was obtained. FINDINGS: There is a new central airspace opacity in the left upper lung zone extending fully to the apex. Chronic coarse lung markings are again noted. XR/XR chest 1V IMPRESSION: New focal opacity in left upper lung zone probably represents acute lobar pneumonia. Pulmonary hemorrhage is in the differential. A large mass is unlikely since this area was clear 2 months earlier. Electronically signed by: Alireza Rose MD 12/24/2024 03:50 PM EDT
[2024-12-24 15:03] VITALS: BP 112/57; PULSE 66; RESP 18; TEMP 36.4; O2SAT 97; BMI 21.4
--- NOTE | 2024-12-24 15:09 | ECG_ITS ---
Test Reason : SOB Blood Pressure : */* mmHG Vent. Rate : 76 BPM Atrial Rate : 249 BPM P-R Int : * ms QRS Dur : 114 ms QT Int : 396 ms P-R-T Axes : 114 -52 16 degrees QTcB Int : 445 ms Atrial flutter with variable A-V block with premature ventricular or aberrantly conducted complexes Left anterior fascicular block Cannot rule out Anterior infarct (cited on or before 13-Nov-2023) Abnormal ECG When compared with ECG of 13-Nov-2023 13:40, No significant change was found Referred By: Generic ED Physician Electronically Signed By: BENJY JOHNS
[2024-12-24 15:26] LABS: MANUAL DIFF FLAG NO
[2024-12-24 15:29] LABS: VBG HCO3 26 mmol/L (22-26); VBG O2 % Saturation 41.0 %
[2024-12-24 15:29] LABS: Hematocrit 35.7 % (42.0-52.0); Hemoglobin 12.3 g/dl (14.0-18.0); Imm Gran Abs Auto 0.17 X10*3/uL (0.00-0.03); Imm Gran Pct Auto 1.2 % (0.0-0.4); Lymphocytes Absolute Auto 2.7 X10*3/uL (1.2-4.9); Mean Corpuscular HGB Conc 34.5 g/dl (31.0-36.0); Mean Corpuscular Hemoglobin 32.6 pg (27.0-33.0); Mean Corpuscular Volume 94.7 fL (80.0-98.0); NRBC Abs Auto 0.000 X10*3/uL (0.0-0.012); NRBC Pct Auto 0.0 /100WBC (0.0-0.2); Platelet Count 242 X10*3/uL (160-400); Red Blood Count 3.77 X10*6/uL (4.60-5.80); White Blood Count 13.8 X10*3/uL (4.8-10.8)
[2024-12-24 15:30] LABS: Venous Blood Gas Refer to POC result
--- NOTE | 2024-12-24 15:44 | ED.SOB ---
HPI - SOB/Dyspnea General Chief Complaint: Dyspnea Stated Complaint: diff breathing Time Seen by Provider: 12/24/24 18:09 Source: patient Mode of arrival: ambulatory Limitations: no limitations History of Present Illness ED Provider: HPI Narrative: Patient's history of hypotension atrial flutter status post TAVR, diabetes on Eliquis comes here for increased shortness a breath for last 6 months got worse in last 1 week at whenever he walks he feels short winded patient does have occasional cough mostly dry, no fever no chills denies any chest pain no leg swelling on arrival patient was saturating 90% at room air Related Data Home Medications ?Medication ?Instructions ?Recorded ?Confirmed atorvastatin 80 mg tablet 80 mg PO BEDTIME 04/02/20 10/28/24 tamsulosin 0.4 mg capsule 0.4 mg PO BEDTIME 04/02/20 10/28/24 metformin 500 mg tablet 1,000 mg PO BID 09/20/21 10/28/24 apixaban 5 mg tablet (Eliquis) 5 mg PO BID 03/08/22 10/28/24 blood sugar diagnostic ([facility] #10 ea 08/28/22 10/28/24 Lite Strips) furosemide 40 mg tablet 40 mg PO DAILY 08/28/22 10/28/24 levothyroxine 125 mcg tablet 125 mcg PO DAILY@0600 08/28/22 10/28/24 ascorbic acid (vitamin C) 1,000 mg 500 mg PO BEDTIME 11/24/22 10/28/24 tablet (Vitamin C) cholecalciferol (vitamin D3) 50 50 mcg PO BEDTIME 11/24/22 10/28/24 mcg (2,000 unit) tablet (Vitamin D3) coenzyme Q10 100 mg capsule 200 mg PO BEDTIME 11/24/22 10/28/24 (CoQ-10) ferrous sulfate 325 mg (65 mg 325 mg PO DAILY 11/24/22 10/28/24 iron) tablet (FeroSul) glucosam 750 mg-chondroi 100 2 tab PO BID 11/24/22 10/28/24 mg-hyalur 1.65 mg-CF borate 108 mg tablet ([facility]) omega 4-olp-ngo-fish oil 1,000 mg 1 cap PO DAILY 11/24/22 10/28/24 (120 mg-180 mg) capsule (Fish Oil) diltiazem HCl 90 mg 90 mg PO DAILY 02/28/24 10/28/24 capsule,extended release 12 hr Previous Rx's ?Medication ?Instructions ?Recorded glipizide 5 mg tablet 5 mg PO BIDWM #60 tabs 11/26/22 metoprolol succinate 25 mg 25 mg PO BEDTIME #90 tabs 08/18/24 tablet,extended release 24 hr fluticasone furoate 100 1 inh inhalation DAILY #60 ea 12/23/24 mcg-vilanterol 25 mcg/dose inhalation powder (Breo Ellipta) Allergies Allergy/AdvReac Type Severity Reaction Status Date / Time No Known Allergies (No Known Allergy Verified 12/24/24 15:05 Allergies*) Review of Systems Review of Systems: Yes all other systems are reviewed and are negative [facility] Past Medical History Medical History Hypercalcemia TAYLOR (acute kidney injury) Acute hyperglycemia HTN (hypertension) Aortic stenosis Arthritis of right knee Calcific tendinitis of left shoulder Orthostasis (~2014) Diabetes mellitus (~2014) Knee effusion (~11/15/14) Hyperlipidemia (~2012) Hypothyroidism (~2012) Surgical History S/P TAVR (transcatheter aortic valve replacement) S/P wrist surgery History of cardiac cath Family History Family History Father No problems noted. 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) Alcohol intake: never Patient Tobacco Use Status: Former Tobacco user Tobacco use type: Pipe Years Smoked: 10 Advance Directives: Yes Advance Directives on File: Yes Advance Directives Date on File: 11/24/22 Do you have a plan to hurt others: No Plan service: Yes Current occupational status: retired Current occupation: Right Handed Physical Exam Vital Signs: Vital Signs: Last Vital Signs Temp 97.8 F 12/25/24 00:48 Pulse 60 12/25/24 00:48 Resp 12 12/25/24 00:48 BP 126/53 L 12/25/24 00:48 Pulse Ox 97 12/25/24 00:48 O2 Del Method Nasal Cannula 12/25/24 00:48 O2 Flow Rate 2 12/25/24 00:48 BMI result Body Mass Index 21.4 Appearance: Alert. Oriented X3. No acute distress. Eyes: PERRLA, No Nystagmus no pallor ENT: Pharynx normal. Oral Mucosa moist Neck: Normal inspection. Neck supple. CVS: Irregularly irregular heart rate. Pulses normal. Respiratory: No respiratory distress. Equal air entry bilateral, no wheezing/rales/rhonchi prolonged expiration Abdomen: Soft and nontender. Bowel sounds are present, no mass palpable, no CVA tenderness Skin: Skin warm and dry. Normal skin color. Normal skin turgor. Extremities: No lower extremity edema. No calf tenderness Neuro: Oriented X 3. No motor deficit. No sensory deficit.No cerebellar signs , cranial nerves II-XII intact Course Course Course Narrative: 12/24/24 1544 KENIA Altman This is a Rapid Medical Examination (RME) performed by Good Harrison PA-C in triage. Full HPI, ROS, assessment and treatment plan per primary provider in the Main ED. Hx: 89 yo M here for eval of difficulty breathing since this morning, worse with exertion. Per son, patient is currently being worked up for possible need of home oxygen. Lives at home with . Increased difficulty walking times days. Plan: EKG, chest x-ray, labs, viral swabs Medications Administered Generic Name Dose Route Start Last Admin Trade Name Freq PRN Reason Stop Dose Admin Sodium Chloride 1,000 mls @ 125 mls/hr 12/24/24 23:45 12/24/24 23:53 Ns IVCONT 125 mls/hr .Q8H PRITI Administration Doxycycline Hyclate 100 mg/ 250 mls @ 166.67 mls/hr 12/24/24 23:41 12/24/24 23:53 Sodium Chloride IV 12/25/24 01:10 166.67 mls/hr ONCE ONE Administration Sodium Chloride 3 ml 12/25/24 00:00 12/25/24 00:28 0.9 % Sodium Chloride Flush 3 Ml Syringe IVFLUSH Not Given QSHIFT PRITI Discontinued Medications Generic Name Dose Route Start Last Admin Trade Name Freq PRN Reason Stop Dose Admin Ceftriaxone Sodium 2 gm 12/24/24 19:33 12/24/24 19:47 Ceftriaxone Sodium 2 Gm Vial IVPUSH 12/24/24 19:34 2 gm ONCE ONE Administration Medical Decision Making Medical Decision Making [facility] Narrative: Patient's history of hypertension atrial flutter status post TAVR, diabetes on Eliquis comes here for increased shortness a breath for last 6 months got worse in last 1 week workup showed patient has left upper lobe mass/consolidation labs showed leukocytosis with lactic acidosis also TAYLOR of creatinine of 1.47 with baseline of 1.2 patient was given IV antibiotic Rocephin and doxycycline admit patient for further workup Differential Diagnosis Differential Diagnoses: The differential diagnosis associated with the presentation includes Pneumonia/lung cancer/CHF/pleural effusion/pneumothorax/PE Admission/Observation Consideration of admission/observation: Escalation of care including admission/observation considered Consult Healthcare Provider Management of the patient was discussed with: Hospitalist Lab Data [facility] Lab Attestation statement: I reviewed the patient's lab results. 12/24/24 15:21 12/24/24 15:21 Labs: Lab Results 12/24/24 12/24/24 12/24/24 Range/Units 15:21 15:26 16:09 WBC 13.8 H (4.8-10.8) X10*3/uL RBC 3.77 L (4.60-5.80) X10*6/uL Hgb 12.3 L (14.0-18.0) g/dl Hct 35.7 L (42.0-52.0) % MCV 94.7 (80.0-98.0) fL MCH 32.6 (27.0-33.0) pg MCHC 34.5 (31.0-36.0) g/dl RDW 15.1 (11.0-16.0) % Plt Count 242 D (160-400) X10*3/uL MPV 9.2 L (9.4-12.4) fL Immature Gran % (Auto) 1.2 H (0.0-0.4) % Neut % (Auto) 73.2 H (45-73) % Lymph % (Auto) 19.2 L (20-40) % Slope % (Auto) 6.0 (2-11) % Eos % (Auto) 0.2 (0-4) % Baso % (Auto) 0.2 (0-2) % Lymph # (Auto) 2.7 (1.2-4.9) X10*3/uL Slope # (Auto) 0.8 (0.1-1.2) X10*3/uL Eos # (Auto) 0.0 (0.0-0.4) X10*3/uL Baso # (Auto) 0.0 (0.0-0.2) X10*3/uL Abs Immat Gran (auto) 0.17 H (0.00-0.03) X10*3/uL Absolute Neuts (auto) 10.1 H (2.0-8.3) x10*3/uL Absolute Nucleated RBC 0.000 (0.0-0.012) X10*3/uL Nucleated RBC % (auto) 0.0 (0.0-0.2) /100WBC PT (10.9-12.4) SEC INR (0.9-1.1) APTT (26.0-36.8) SEC D-Dimer High Sensitivty NG/ML VBG pH 7.36 (7.32-7.43) VBG pCO2 46 mmHg VBG pO2 34 mmHg VBG HCO3 26 (22-26) mmol/L VBG O2 Saturation 41.0 % VBG Base Excess 1.2 mmol/L Sodium 132 L (135-145) mmol/L Potassium 4.2 (3.3-5.1) mmol/L Chloride 96 (96-108) mmol/L Carbon Dioxide 26 (22-29) mmol/L Anion Gap 14 (12-20) BUN 35 H (9-16) mg/dL Creatinine 1.47 H (0.5-1.4) mg/dL Estim Creat Clear Calc 32.6 Estimated GFR 45 Random Glucose 263 H (60-115) mg/dL Lactic Acid (0.5-2.0) mmol/L Lactic Acid F/U @ 2Hr (0.5-2.0) mmol/L Calcium 9.8 (8.4-10.2) mg/dL Magnesium 1.6 (1.6-2.6) mg/dL Total Bilirubin 0.9 (0.0-1.0) mg/dL AST 54 H (5-37) U/L ALT 35 (0-40) U/L Alkaline Phosphatase 189 H (39-117) U/L Troponin I High Sens 78.5 H D (<3.5-35.0) ng/L B-Natriuretic Peptide 227 H (<100) pg/mL Total Protein 6.6 (6.5-8.0) g/dL Albumin 3.3 L (3.5-5.0) g/dL Influenza Type A (PCR) NEGATIVE (Negative) Influenza Type B (PCR) NEGATIVE (Negative) RSV RNA Qual (PCR) NEGATIVE (Negative) SARS-CoV-2 RNA (RT-PCR) NEGATIVE (Negative) 12/24/24 12/24/24 12/24/24 Range/Units 18:53 18:53 22:08 WBC (4.8-10.8) X10*3/uL RBC (4.60-5.80) X10*6/uL Hgb (14.0-18.0) g/dl Hct (42.0-52.0) % MCV (80.0-98.0) fL MCH (27.0-33.0) pg MCHC (31.0-36.0) g/dl RDW (11.0-16.0) % Plt Count (160-400) X10*3/uL MPV (9.4-12.4) fL Immature Gran % (Auto) (0.0-0.4) % Neut % (Auto) (45-73) % Lymph % (Auto) (20-40) % Slope % (Auto) (2-11) % Eos % (Auto) (0-4) % Baso % (Auto) (0-2) % Lymph # (Auto) (1.2-4.9) X10*3/uL Slope # (Auto) (0.1-1.2) X10*3/uL Eos # (Auto) (0.0-0.4) X10*3/uL Baso # (Auto) (0.0-0.2) X10*3/uL Abs Immat Gran (auto) (0.00-0.03) X10*3/uL Absolute Neuts (auto) (2.0-8.3) x10*3/uL Absolute Nucleated RBC (0.0-0.012) X10*3/uL Nucleated RBC % (auto) (0.0-0.2) /100WBC PT 16.4 H (10.9-12.4) SEC INR 1.4 H (0.9-1.1) APTT 37.1 H (26.0-36.8) SEC D-Dimer High Sensitivty 469 Cancelled NG/ML VBG pH (7.32-7.43) VBG pCO2 mmHg VBG pO2 mmHg VBG HCO3 (22-26) mmol/L VBG O2 Saturation % VBG Base Excess mmol/L Sodium (135-145) mmol/L Potassium (3.3-5.1) mmol/L Chloride (96-108) mmol/L Carbon Dioxide (22-29) mmol/L Anion Gap (12-20) BUN (9-16) mg/dL Creatinine (0.5-1.4) mg/dL Estim Creat Clear Calc Estimated GFR Random Glucose (60-115) mg/dL Lactic Acid 3.1 H* (0.5-2.0) mmol/L Lactic Acid F/U @ 2Hr 2.2 H* (0.5-2.0) mmol/L Calcium (8.4-10.2) mg/dL Magnesium (1.6-2.6) mg/dL Total Bilirubin (0.0-1.0) mg/dL AST (5-37) U/L ALT (0-40) U/L Alkaline Phosphatase (39-117) U/L Troponin I High Sens (<3.5-35.0) ng/L B-Natriuretic Peptide (<100) pg/mL Total Protein (6.5-8.0) g/dL Albumin (3.5-5.0) g/dL Influenza Type A (PCR) (Negative) Influenza Type B (PCR) (Negative) RSV RNA Qual (PCR) (Negative) SARS-CoV-2 RNA (RT-PCR) (Negative) ABG Data Attestation ABG: I personally reviewed and interpreted this ABG as follows: Interpretation: Normal venous gases Independent Interpretation I performed an independent interpretation of an: EKG and CT Scan Interpretation: Atrial flutter with variable AV block with ventricular rate of 76 beats per minute no acute STT wave changes no acute ischemia Radiology Impression Discussion of test interpretation with radiology: I have reviewed the radiologist's reading. Radiologist Impression: Impression: Dense somewhat masslike consolidation within the left upper lobe with mediastinal adenopathy as detailed. Suspect this reflects advanced pneumonia, especially given that this was not present on the 10/28/2024 radiograph; however, malignancy is not entirely excluded and close interval follow-up would be recommended. This document has been electronically signed by: Jason James MD on 12/24/2024 21:26:50 Discharge Plan Discharge Clinical Impression: Community acquired pneumonia, Acute hypoxemic respiratory failure, Atrial flutter, S/P TAVR (transcatheter aortic valve replacement) Patient Disposition: Admitted As Inpatient
[2024-12-24 15:50] LABS: Alanine Aminotransferase 35 U/L (0-40); Albumin Level 3.3 g/dL (3.5-5.0); Alkaline Phosphatase 189 U/L (39-117); Anion Gap 14 (12-20); Aspartate Amino Transferase 54 U/L (5-37); Blood Urea Nitrogen 35 mg/dL (9-16); Calcium 9.8 mg/dL (8.4-10.2); Carbon Dioxide 26 mmol/L (22-29); Chloride 96 mmol/L (96-108); Creatinine Clr Calc Pharmacy 32.6; Estimated Glomerular Filt Rate 45; Magnesium 1.6 mg/dL (1.6-2.6); Potassium 4.2 mmol/L (3.3-5.1); Sodium 132 mmol/L (135-145); Total Protein 6.6 g/dL (6.5-8.0)
[2024-12-24 15:56] LABS: B Type Natriuretic Peptide 227 pg/mL (<100)
[2024-12-24 15:58] LABS: Troponin-I High Sensitivity 78.5 ng/L (<3.5-35.0)
--- OUTSIDE RECORDS SUMMARY | 2024-12-24 16:19 | XMS_ITS | Patient Health Record ---
Author Organization [facility] Address [address] [place] [id number] Care Team Providers Care Foot Specialist Name Role Phone Orestes Alex MD Primary Care Provider Mario Way Unavailable [phone] Allergies Allergen (clinical drug ingredient) Drug/Non Drug [...] Problem Status W/U Status Risk Notes Problem 82878127 Rectal bleeding (K62.5) Active confirmed Problem 79573795 Change in bowel function (R19.4) Active confirmed Problem Anemia (D64.9) Active confirmed Problem 88227783 Constipation, unspecified constipation type (K59.00) Active confirmed Problem 762885002 Anemia, unspecified type (D64.9) Active confirmed Plan [...] Date MEDICARE OF [place] [address] [place] [address] [id number] DELIA CAT Self - patient is the insured [employer] ATTN CLAIMS [address] [place] [address] [id number] DELIA CAT Self - patient is the insured Medical (General) History Medical History History ICD Code Colonoscopy 10-06-2007 and 97--negative except diverticulosis and internal hemorrhoids; 3 negative Hemoccult cards in 01/2016 Hyperlipidemia BPH Denies NC,CVA,Lung disease,renal disease NIDDM Hypothyroidism Colonoscopy 01/2019 several small tubular adenomas removed Surgical History Surgery Date(Month/Year) Thumb surgery 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
[2024-12-24 16:50] VITALS: BP 117/59; PULSE 63; RESP 16; TEMP 36.4; O2SAT 90
[2024-12-24 17:06] LABS: Resp Syncy Virus RNA Qual PCR NEGATIVE (Negative); SARS COV2 PCR INHOUSE NEGATIVE (Negative)
--- NOTE | 2024-12-24 17:31 | PC.NURSE ---
Pt desated when sleeping to 86. Placed on 2L NC
[2024-12-24 18:36] VITALS: BP 142/62; PULSE 60; RESP 15; TEMP 36.3; O2SAT 95
[2024-12-24 19:15] LABS: INTERNATIONAL NORM RATIO 1.4 (0.9-1.1); Prothrombin Time 16.4 SEC (10.9-12.4)
[2024-12-24 19:17] LABS: D Dimer High Sensitivity 469 NG/ML
[2024-12-24 19:18] LABS: Partial Thromboplastin Time 37.1 SEC (26.0-36.8)
[2024-12-24 20:55] VITALS: BP 137/44; PULSE 61; RESP 15; TEMP 36.6; O2SAT 98
[2024-12-24 20:58] LABS: Reflex Lactate? Lactic Acid Added
[2024-12-24 22:04] VITALS: BP 144/65; PULSE 61; RESP 13; TEMP 36.3; O2SAT 96
[2024-12-24 22:47] LABS: ~Lactic Acid-LAB USE ONLY 2.2 mmol/L (0.5-2.0)
--- NOTE | 2024-12-24 23:52 | PM.IMHP ---
History of Present Illness Date of Service: 12/24/24 Attending physician on admission: Branden Hummel Chief Complaint: dyspnea Patient is an 89-year-old male with a past medical history significant for hypertension, aortic stenosis, type 2 diabetes, hyperlipidemia, hypothyroid, atrial flutter on Eliquis, who presented to the ED due to dyspnea at rest and worse with exertion for the past few days. He reports difficulty with walking due to leg weakness however no falls. He reports that he has been going through a workup to evaluate for home oxygen. He denies any productive cough, fever, chills, nausea or vomiting. No abdominal pain or urinary symptoms. Review of Systems Constitutional: Constitutional: Denies body ache(s), Denies chills, Reports fatigue, Denies fever(s) and Denies headache(s) Eyes: Eyes: Denies change in vision ENT: Denies headache(s), Denies nasal congestion and Denies sore throat Cardiovascular: Cardiovascular: Denies chest pain, Denies rapid heart rate, Denies leg edema, Denies lightheadedness and Reports dyspnea Respiratory: Respiratory: Denies chest congestion, Denies cough, Reports dyspnea and Denies wheezing Gastrointestinal: Gastrointestinal: Denies abdominal pain, Denies diarrhea and Denies vomiting Genitourinary: Genitourinary: Denies hematuria, Denies urinary frequency and Denies urinary urgency Musculoskeletal: Musculoskeletal: Denies myalgias Integumentary/Breasts: Skin/Breast: Denies rash Neurologic: Denies confusion and Denies headache(s) Psychiatric: Psychiatric: Denies confusion Endocrine: Endocrine: Reports fatigue Hematologic/Lymphatic: Hematologic/Lymphatic: Denies easy bleeding and Denies easy bruising Allergic/Immunologic: Allergic/Immunologic: Denies wheezing [facility] Medical History Hypercalcemia TAYLOR (acute kidney injury) Acute hyperglycemia HTN (hypertension) Aortic stenosis Arthritis of right knee Calcific tendinitis of left shoulder Orthostasis (~2014) Diabetes mellitus (~2014) Knee effusion (~11/15/14) Hyperlipidemia (~2012) Hypothyroidism (~2012) Family History Father No problems noted. Mother Cancer Surgical History S/P TAVR (transcatheter aortic valve replacement) S/P wrist surgery History of cardiac cath Social History Household Members: Spouse Housing: House Do you presently have visiting nurse or other home services: No ([employer]) Alcohol intake: never Patient Tobacco Use Status: Former Tobacco user Tobacco use type: Pipe Years Smoked: 10 Advance Directives: Yes Advance Directives on File: Yes Advance Directives Date on File: 11/24/22 Do you have a plan to hurt others: No Plan service: Yes Current occupational status: retired Current occupation: Right Handed Narrative: No smoking, alcohol or drug use Meds Allergies Allergy/AdvReac Type Severity Reaction Status Date / Time No Known Allergies (No Known Allergy Verified 12/24/24 15:05 Allergies*) Active Medications: Current Medications Sodium Chloride (Ns) 1,000 mls @ 125 mls/hr IVCONT .Q8H PRITI Doxycycline Hyclate 100 mg/ (Sodium Chloride) 250 mls @ 166.67 mls/hr IV ONCE ONE Stop: 12/25/24 01:10 Home Medications ?Medication ?Instructions ?Recorded ?Confirmed ?Last Taken ?Type atorvastatin 80 mg tablet 80 mg PO BEDTIME 04/02/20 10/28/24 11/23/22 History tamsulosin 0.4 mg capsule 0.4 mg PO BEDTIME 04/02/20 10/28/24 11/23/22 History metformin 500 mg tablet 1,000 mg PO BID 09/20/21 10/28/24 11/24/22 09:00 History apixaban 5 mg tablet (Eliquis) 5 mg PO BID 03/08/22 10/28/24 11/24/22 09:00 History blood sugar diagnostic (FreeStyle #10 ea 08/28/22 10/28/24 Unknown History Lite Strips) furosemide 40 mg tablet 40 mg PO DAILY 08/28/22 10/28/24 11/24/22 09:00 History levothyroxine 125 mcg tablet 125 mcg PO DAILY@0600 08/28/22 10/28/24 11/24/22 History ascorbic acid (vitamin C) 1,000 mg 500 mg PO BEDTIME 11/24/22 10/28/24 11/23/22 History tablet (Vitamin C) cholecalciferol (vitamin D3) 50 50 mcg PO BEDTIME 11/24/22 10/28/24 11/23/22 History mcg (2,000 unit) tablet (Vitamin D3) coenzyme Q10 100 mg capsule 200 mg PO BEDTIME 11/24/22 10/28/24 11/23/22 History (CoQ-10) ferrous sulfate 325 mg (65 mg 325 mg PO DAILY 11/24/22 10/28/24 11/24/22 09:00 History iron) tablet (FeroSul) glucosam 750 mg-chondroi 100 2 tab PO BID 11/24/22 10/28/24 11/24/22 09:00 History mg-hyalur 1.65 mg-CF borate 108 mg tablet ([employer] Free Buyou) omega 7-qdx-rbo-fish oil 1,000 mg 1 cap PO DAILY 11/24/22 10/28/24 11/24/22 09:00 History (120 mg-180 mg) capsule (Fish Oil) diltiazem HCl 90 mg 90 mg PO DAILY 02/28/24 10/28/24 Unknown History capsule,extended release 12 hr Physical Exam Vital Signs and Narrative: Vital Signs: Last Vital Signs Temp 97.4 F 12/24/24 22:04 Pulse 61 12/24/24 22:04 Resp 13 12/24/24 22:04 BP 144/65 H 12/24/24 22:04 Pulse Ox 96 12/24/24 22:04 O2 Del Method Nasal Cannula 12/24/24 22:04 O2 Flow Rate 2 12/24/24 22:04 BMI result Body Mass Index 21.4 General: AOx3, no acute distress Resp: Crackles bilateral lower lungs, no wheezing, diminished throughout CVS: S1, S2, RRR GI: +BS, NT, no distention Skin: Warm, dry Neuro: Cranial nerves II-XII grossly intact bilaterally. Motor grossly intact bilaterally Extremities: No pitting edema Psych: Appropriate affect Const: General: No confusion Orientation/consciousness: No confusion Neuro: General: No confusion Results Labs 12/24/24 15:21 12/24/24 15:21 Labs: Laboratory Results - last 24 hr 12/24/24 12/24/24 12/24/24 15:21 15:26 16:09 MCV 94.7 MCH 32.6 MCHC 34.5 RDW 15.1 Plt Count 242 D MPV 9.2 L Immature Gran % (Auto) 1.2 H Neut % (Auto) 73.2 H Lymph % (Auto) 19.2 L [place] % (Auto) 6.0 Eos % (Auto) 0.2 Baso % (Auto) 0.2 Lymph # (Auto) 2.7 [place] # (Auto) 0.8 Eos # (Auto) 0.0 Baso # (Auto) 0.0 Abs Immat Gran (auto) 0.17 H Absolute Neuts (auto) 10.1 H Absolute Nucleated RBC 0.000 Nucleated RBC % (auto) 0.0 PT INR APTT D-Dimer High Sensitivty VBG pH 7.36 VBG pCO2 46 VBG pO2 34 VBG HCO3 26 VBG O2 Saturation 41.0 VBG Base Excess 1.2 Anion Gap 14 Estim Creat Clear Calc 32.6 Estimated GFR 45 Random Glucose 263 H Lactic Acid Lactic Acid F/U @ 2Hr Calcium 9.8 Magnesium 1.6 Total Bilirubin 0.9 AST 54 H ALT 35 Alkaline Phosphatase 189 H B-Natriuretic Peptide 227 H Total Protein 6.6 Albumin 3.3 L Influenza Type A (PCR) NEGATIVE Influenza Type B (PCR) NEGATIVE RSV RNA Qual (PCR) NEGATIVE SARS-CoV-2 RNA (RT-PCR) NEGATIVE 12/24/24 12/24/24 12/24/24 18:53 18:53 22:08 MCV MCH MCHC RDW Plt Count MPV Immature Gran % (Auto) Neut % (Auto) Lymph % (Auto) [place] % (Auto) Eos % (Auto) Baso % (Auto) Lymph # (Auto) [place] # (Auto) Eos # (Auto) Baso # (Auto) Abs Immat Gran (auto) Absolute Neuts (auto) Absolute Nucleated RBC Nucleated RBC % (auto) PT 16.4 H INR 1.4 H APTT 37.1 H D-Dimer High Sensitivty 469 Cancelled VBG pH VBG pCO2 VBG pO2 VBG HCO3 VBG O2 Saturation VBG Base Excess Anion Gap Estim Creat Clear Calc Estimated GFR Random Glucose Lactic Acid 3.1 H* Lactic Acid F/U @ 2Hr 2.2 H* Calcium Magnesium Total Bilirubin AST ALT Alkaline Phosphatase B-Natriuretic Peptide Total Protein Albumin Influenza Type A (PCR) Influenza Type B (PCR) RSV RNA Qual (PCR) SARS-CoV-2 RNA (RT-PCR) Imaging Radiologist's Impressions: Impressions Chest X-Ray 12/24/24 14:46 IMPRESSION: New focal opacity in left upper lung zone probably represents acute lobar pneumonia. Pulmonary hemorrhage is in the differential. A large mass is unlikely since this area was clear 2 months earlier. Electronically signed by: Alireza Rose MD 12/24/2024 03:50 PM EDT RP Assessment and Plan (1) Acute hypoxemic respiratory failure: Status: Acute (2) Community acquired pneumonia: Status: Acute (3) Lung mass: Status: Acute Plan Patient is an 89-year-old male with a past medical history significant for hypertension, aortic stenosis, type 2 diabetes, hyperlipidemia, hypothyroid, atrial flutter on Eliquis, who presented to the ED due to dyspnea at rest and worse with exertion for the past few days. Acute hypoxic respiratory failure secondary to pneumonia -WBC 13.8, vital signs stable, hypoxic, lactic acid 3.1, 2.2 on repeat, blood cultures x2 pending, no sepsis - chest x-ray with left upper lobe pneumonia and questionable large mass - chest CT with dense somewhat masslike consolidation within the left upper lobe with mediastinal adenopathy as detailed. Suspect this reflects advanced pneumonia, especially given that this was not present on 10/28/2024 radiograph. Malignancy is not entirely excluded and close interval follow-up would be recommended. - COVID/flu/RSV negative - troponin 78.5, repeat pending - EKG with a flutter - patient is started on ceftriaxone and doxycycline, continue - given 1 L IV fluids in ED - titrate oxygen as needed - monitor CBC and BMP - follow-up outpatient for repeat imaging regarding possible mass on chest CT Hypertension - normotensive at this time, continue home meds when appropriate Type 2 diabetes - sliding scale insulin - diabetic diet Hyperlipidemia - continue home meds Hypothyroid - continue levothyroxine Atrial flutter - continue Eliquis Full code VTE prophylaxis: Eliquis Patient with acute hypoxic respiratory failure secondary to pneumonia, requiring admission for at least 2 midnights stay for IV antibiotics and monitoring. Quality Stroke Does the patient have a stroke diagnosis?: No VTE Prior VTE?: No VTE Risk Level:: Medical - moderate - high VTE Device Contraindication: Treatment Not Indicated VTE Drug Contraindication: N/A - Med Ordered
[2024-12-25] VITALS (7 sets, daily range): BP systolic 112–147; BP diastolic 53–69; PULSE 60–64; RESP 12–19; TEMP 36.1–36.6; O2SAT 93–99; BMI 22.1
[2024-12-25 00:18] LABS: Reflex Lactate? 2 Y
[2024-12-25 01:32] LABS: Troponin-I High Sensitivity 43.7 ng/L (<3.5-35.0); ~Lactic Acid-LAB USE ONLY 3.8 mmol/L (0.5-2.0)
[2024-12-25 05:07] LABS: MANUAL DIFF FLAG NO
[2024-12-25 05:10] LABS: Hematocrit 35.5 % (42.0-52.0); Hemoglobin 11.9 g/dl (14.0-18.0); Imm Gran Abs Auto 0.12 X10*3/uL (0.00-0.03); Imm Gran Pct Auto 0.9 % (0.0-0.4); Lymphocytes Absolute Auto 2.9 X10*3/uL (1.2-4.9); Mean Corpuscular HGB Conc 33.5 g/dl (31.0-36.0); Mean Corpuscular Hemoglobin 32.0 pg (27.0-33.0); Mean Corpuscular Volume 95.4 fL (80.0-98.0); NRBC Abs Auto 0.000 X10*3/uL (0.0-0.012); NRBC Pct Auto 0.0 /100WBC (0.0-0.2); Platelet Count 241 X10*3/uL (160-400); Red Blood Count 3.72 X10*6/uL (4.60-5.80); White Blood Count 13.0 X10*3/uL (4.8-10.8)
[2024-12-25 05:29] LABS: Anion Gap 15 (12-20); Blood Urea Nitrogen 32 mg/dL (9-16); Calcium 8.6 mg/dL (8.4-10.2); Carbon Dioxide 24 mmol/L (22-29); Chloride 100 mmol/L (96-108); Creatinine Clr Calc Pharmacy 45.6; Estimated Glomerular Filt Rate > 60; Potassium 3.8 mmol/L (3.3-5.1); Sodium 135 mmol/L (135-145)
[2024-12-25 06:54] LABS: Glucose, Whole Blood 201 mg/dL (60-115)
--- NOTE | 2024-12-25 12:16 | MHC.EDTECH ---
pt urinated 350mL of yellow urine into urinal
[2024-12-25 13:02] LABS: Glucose, Whole Blood 189 mg/dL (60-115)
--- NOTE | 2024-12-25 13:16 | MHC.CM.PN ---
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 They have home cleaning assistance and home delivered meals from [employer]. He is able to complete his own personal care. He does not use DME. He is able to arrange transport home at [place]. DCP: home, self care. CM to follow for DC needs.
--- NOTE | 2024-12-25 14:34 | PHA.MEDREC ---
Addendum entered by Brook Cabrera rogers 12/25/24 17:06: This [facility] has reviewed the med rec. Spoke with patient to confirm He is cutting the Eliquis 5mg tablet to take 2.5mg BID, [facility] Glipizide was updated based on [facility] med list to 5mg DAILY. Original Note: Pharmacy Consult ? Medication Reconciliation Pharmacy has completed the medication reconciliation. Spoke with pt and he confirmed he is a pt at the [facility]. Got a list from the [facility] and utilized that to confirm the med rec. Pt just seen at our facility for an office visit 12/23 and he was prescribed a Breo Ellipta Inhaler; Spoke with pt pharmacy and they stated they are filling it now for him.
[2024-12-25] MEDS: 0.9 % Sodium Chloride Flush 3 ML SYRINGE IVFLUSH ×2 (15:19→20:15)
[2024-12-25 16:07] LABS: Glucose, Whole Blood 161 mg/dL (60-115)
--- NOTE | 2024-12-25 16:39 | P.PNIM_ITS ---
Subjective Subjective Date of Service: 12/25/24 Review of Systems Review of Systems: Yes all other systems are reviewed and are negative Physical Exam 2 Vital Signs: Vital Signs: Last Vital Signs Temp 96.9 F 12/25/24 15:04 Pulse 62 12/25/24 15:04 Resp 18 12/25/24 15:04 BP 139/65 12/25/24 15:04 Pulse Ox 98 12/25/24 15:04 O2 Del Method Nasal Cannula 12/25/24 15:04 O2 Flow Rate 2 12/25/24 15:04 BMI result Body Mass Index 22.1 General: AOx3, no acute distress. Appears uncomfortable with head movement. Resp: CTA bilaterally CVS: S1, S2, RRR GI: +BS, NT, no distention Skin: Warm, dry Neuro: Cranial nerves II-XII grossly intact bilaterally. Motor grossly intact bilaterally. No nystagmus noted. Extremities: No edema Psych: Appropriate affect Objective Data Active Medications Acetaminophen (Acetaminophen 325 Mg Tablet) 975 mg PO Q6H PRN PRN Reason: Pain, Mild 1-3,fever,headache Apixaban (Apixaban 5 Mg Tablet) 5 mg PO BID [facility] Last Admin: 12/25/24 09:56 Dose: 2.5 mg Documented By: KAYLEY Comments: patient states he takes 2.5mg Calcium Carbonate (Calcium Carbonate 750 Mg Tab.Chew) 750 mg PO Q4H PRN PRN Reason: Heartburn Ceftriaxone Sodium (Ceftriaxone Sodium 1 Gm Vial) 1 gm IVPUSH Q24H [facility] Dextrose (Dextrose 50 % 25 Gm/50 Ml Syringe) 25 gm IVPUSH Q15M PRN; Protocol PRN Reason: per Hypoglycemia Standing Ord. Glucose (Glucose Gel 15 Gm Gel..Gram.) 15 gm PO Q15M PRN; Protocol PRN Reason: per Hypoglycemia Standing Ord. Sodium Chloride (Ns) 1,000 mls @ 125 mls/hr IVCONT .Q8H [facility] Last Admin: 12/25/24 15:19 Dose: 125 mls/hr Documented By: DUNCAN Doxycycline Hyclate 100 mg/ (Sodium Chloride) 250 mls @ 166.67 mls/hr IV Q12H [facility] Insulin Human Lispro (Insulin Lispro 100 Unit/Ml 3 Ml Vial) 0 unit SUBCUT QIDACHS [facility]; Protocol Last Admin: 12/25/24 16:37 Dose: 2 unit Documented By: DUNCAN Magnesium Hydroxide (Milk Of Magnesia 30 Ml Oral.Susp) 30 ml PO DAILY PRN PRN Reason: Constipation Melatonin (Melatonin 3 Mg Tablet) 6 mg PO BEDTIME PRN PRN Reason: Insomnia Ondansetron HCl (Ondansetron Hcl 4 Mg/2 Ml Vial) 4 mg IVPUSH Q8H PRN PRN Reason: Nausea and Vomiting Oxycodone HCl (Oxycodone Hcl Immed Release 5 Mg Tablet) 5 mg PO Q6H PRN PRN Reason: Pain, Severe (Pain Scale 7-10) Sodium Chloride (0.9 % Sodium Chloride Flush 3 Ml Syringe) 3 ml IVFLUSH QSHIFT [facility] Last Admin: 12/25/24 15:19 Dose: 3 ml Documented By: DUNCAN Tramadol HCl (Tramadol Hcl 50 Mg Tablet) 50 mg PO Q6H PRN PRN Reason: Pain, Moderate(Pain Scale 4-6) Labs 12/25/24 04:56 12/25/24 04:56 Labs: Laboratory Results - last 24 hr 12/24/24 12/24/24 12/24/24 15:26 16:09 18:53 MCV MCH MCHC RDW Plt Count MPV Immature Gran % (Auto) Neut % (Auto) Lymph % (Auto) [place] % (Auto) Eos % (Auto) Baso % (Auto) Lymph # (Auto) [place] # (Auto) Eos # (Auto) Baso # (Auto) Abs Immat Gran (auto) Absolute Neuts (auto) Absolute Nucleated RBC Nucleated RBC % (auto) PT 16.4 H INR 1.4 H APTT 37.1 H D-Dimer High Sensitivty 469 VBG pH 7.36 VBG pCO2 46 VBG pO2 34 VBG HCO3 26 VBG O2 Saturation 41.0 VBG Base Excess 1.2 Anion Gap Estim Creat Clear Calc Estimated GFR POC Glucose Random Glucose Lactic Acid Lactic Acid F/U @ 2Hr Lactic Acid F/U @ 4Hr Calcium Influenza Type A (PCR) NEGATIVE Influenza Type B (PCR) NEGATIVE RSV RNA Qual (PCR) NEGATIVE SARS-CoV-2 RNA (RT-PCR) NEGATIVE 12/24/24 12/24/24 12/25/24 18:53 22:08 01:07 MCV MCH MCHC RDW Plt Count MPV Immature Gran % (Auto) Neut % (Auto) Lymph % (Auto) [place] % (Auto) Eos % (Auto) Baso % (Auto) Lymph # (Auto) [place] # (Auto) Eos # (Auto) Baso # (Auto) Abs Immat Gran (auto) Absolute Neuts (auto) Absolute Nucleated RBC Nucleated RBC % (auto) PT INR APTT D-Dimer High Sensitivty Cancelled VBG pH VBG pCO2 VBG pO2 VBG HCO3 VBG O2 Saturation VBG Base Excess Anion Gap Estim Creat Clear Calc Estimated GFR POC Glucose Random Glucose Lactic Acid 3.1 H* Lactic Acid F/U @ 2Hr 2.2 H* Lactic Acid F/U @ 4Hr 3.8 H* Calcium Influenza Type A (PCR) Influenza Type B (PCR) RSV RNA Qual (PCR) SARS-CoV-2 RNA (RT-PCR) 12/25/24 12/25/24 12/25/24 04:56 06:50 12:57 MCV 95.4 MCH 32.0 MCHC 33.5 RDW 15.0 Plt Count 241 MPV 9.7 Immature Gran % (Auto) 0.9 H Neut % (Auto) 68.7 Lymph % (Auto) 22.2 [place] % (Auto) 7.1 Eos % (Auto) 0.6 Baso % (Auto) 0.5 Lymph # (Auto) 2.9 [place] # (Auto) 0.9 Eos # (Auto) 0.1 Baso # (Auto) 0.1 Abs Immat Gran (auto) 0.12 H Absolute Neuts (auto) 9.0 H Absolute Nucleated RBC 0.000 Nucleated RBC % (auto) 0.0 PT INR APTT D-Dimer High Sensitivty VBG pH VBG pCO2 VBG pO2 VBG HCO3 VBG O2 Saturation VBG Base Excess Anion Gap 15 Estim Creat Clear Calc 45.6 Estimated GFR > 60 POC Glucose 201 H 189 H Random Glucose 234 H Lactic Acid Lactic Acid F/U @ 2Hr Lactic Acid F/U @ 4Hr Calcium 8.6 D Influenza Type A (PCR) Influenza Type B (PCR) RSV RNA Qual (PCR) SARS-CoV-2 RNA (RT-PCR) 12/25/24 16:03 MCV MCH MCHC RDW Plt Count MPV Immature Gran % (Auto) Neut % (Auto) Lymph % (Auto) [place] % (Auto) Eos % (Auto) Baso % (Auto) Lymph # (Auto) [place] # (Auto) Eos # (Auto) Baso # (Auto) Abs Immat Gran (auto) Absolute Neuts (auto) Absolute Nucleated RBC Nucleated RBC % (auto) PT INR APTT D-Dimer High Sensitivty VBG pH VBG pCO2 VBG pO2 VBG HCO3 VBG O2 Saturation VBG Base Excess Anion Gap Estim Creat Clear Calc Estimated GFR POC Glucose 161 H Random Glucose Lactic Acid Lactic Acid F/U @ 2Hr Lactic Acid F/U @ 4Hr Calcium Influenza Type A (PCR) Influenza Type B (PCR) RSV RNA Qual (PCR) SARS-CoV-2 RNA (RT-PCR) Assessment and Plan (1) Acute hypoxemic respiratory failure: Status: Acute (2) Community acquired pneumonia: Status: Acute Plan Patient is an 89-year-old male with a past medical history significant for hypertension, aortic stenosis, type 2 diabetes, hyperlipidemia, hypothyroid, atrial flutter on Eliquis, who presented to the ED due to dyspnea at rest and worse with exertion for the past few days. Pt is admitted to the hospital for acute hypoxic respiratory failure in the setting of pneumonia. Acute hypoxic respiratory failure secondary to pneumonia WBC 13.8, vital signs stable, hypoxic, lactic acid 3.1, 2.2 on repeat, blood cultures x2 pending, no sepsis Chest x-ray with left upper lobe pneumonia and questionable large mass Chest CT with dense somewhat masslike consolidation within the left upper lobe with mediastinal adenopathy as detailed. Suspect this reflects advanced pneumonia, especially given that this was not present on 10/28/2024 radiograph. Malignancy is not entirely excluded and close interval follow-up would be recommended. COVID/flu/RSV negative Treat with ceftriaxone and doxycycline, day 2 Titrate oxygen as needed Follow-up outpatient for repeat imaging regarding possible mass on chest CT Acute lactic acidosis Secondary to hypoxia, not severe sepsis Elevated troponins Initial troponin 78.5 with repeat flat at 43.7 Pt asymptomatic, EKG without acute ischemia Monitor on telemetry Hypertension Continue home meds when appropriate Type 2 diabetes Sliding scale insulin Diabetic diet Hyperlipidemia Continue home meds Hypothyroid Continue levothyroxine Atrial flutter Continue Eliquis Full code VTE prophylaxis: Eliquis Patient with acute hypoxic respiratory failure secondary to pneumonia, requiring admission for at least 2 midnights stay for IV antibiotics and monitoring. Quality Stroke Does the patient have a stroke diagnosis?: No VTE Prior VTE?: No VTE Risk Level:: Medical - moderate - high VTE Device Contraindication: Treatment Not Indicated VTE Drug Contraindication: N/A - Med Ordered
[2024-12-25 19:58] LABS: Glucose, Whole Blood 167 mg/dL (60-115)
[2024-12-26] VITALS (7 sets, daily range): BP systolic 124–150; BP diastolic 70–84; PULSE 64–98; RESP 14–18; TEMP 36.3–36.8; O2SAT 92–97
[2024-12-26 07:11] LABS: MANUAL DIFF FLAG NO
[2024-12-26] MEDS: oxyCODONE HCl Immed Release 5 MG TABLET PO (07:13)
[2024-12-26 07:14] LABS: Hematocrit 35.7 % (42.0-52.0); Hemoglobin 12.1 g/dl (14.0-18.0); Imm Gran Abs Auto 0.12 X10*3/uL (0.00-0.03); Imm Gran Pct Auto 1.1 % (0.0-0.4); Lymphocytes Absolute Auto 2.8 X10*3/uL (1.2-4.9); Mean Corpuscular HGB Conc 33.9 g/dl (31.0-36.0); Mean Corpuscular Hemoglobin 32.3 pg (27.0-33.0); Mean Corpuscular Volume 95.2 fL (80.0-98.0); NRBC Abs Auto 0.000 X10*3/uL (0.0-0.012); NRBC Pct Auto 0.0 /100WBC (0.0-0.2); Platelet Count 231 X10*3/uL (160-400); Red Blood Count 3.75 X10*6/uL (4.60-5.80); White Blood Count 10.9 X10*3/uL (4.8-10.8)
[2024-12-26 07:31] LABS: Anion Gap 12 (12-20); Blood Urea Nitrogen 17 mg/dL (9-16); Calcium 8.1 mg/dL (8.4-10.2); Carbon Dioxide 24 mmol/L (22-29); Chloride 105 mmol/L (96-108); Creatinine Clr Calc Pharmacy 57.5; Estimated Glomerular Filt Rate > 60; Potassium 3.7 mmol/L (3.3-5.1); Sodium 137 mmol/L (135-145)
[2024-12-26 07:54] LABS: Glucose, Whole Blood 163 mg/dL (60-115)
[2024-12-26 11:46] LABS: Glucose, Whole Blood 214 mg/dL (60-115)
--- NOTE | 2024-12-26 13:01 | MHC.CM.PN ---
EMR REVIEWED AND PER MD ROUNDS, PT IS NOT MEDICALLY CLEARED FOR DC , AWAITING P.T. EVAL TO DETERMINE NEEDS. CM WILL CONTINUE TO FOLLOW FOR PLAN.
--- NOTE | 2024-12-26 14:04 | PC.NURSE ---
Patient resting in bed, eyes closed, unlabored breathing. Nasal cannula in place. Call stone in reach, bed alarm on.
--- NOTE | 2024-12-26 15:49 | HO.PM.IMPN ---
Subjective Subjective Date of Service: 12/26/24 Interval History: No acute events overnight Seen and evaluated in his room where he is resting comfortably in bed Reports is tired and did not sleep well Some SOB and cough No chest pain/pressure, palpitations Review of Systems Review of Systems: Yes all other systems are reviewed and are negative Physical Exam Exam: Exam: General: AOx3, no acute distress Resp: CTA bilaterally though diminished CVS: Irregularly irregular rhythm GI: +BS, NT, no distention Skin: Warm, dry Neuro: Cranial nerves II-XII grossly intact bilaterally. Motor grossly intact bilaterally Extremities: No edema Psych: Appropriate affect Vital Signs: Vital Signs: Last Vital Signs Temp 97.4 F 12/26/24 15:11 Pulse 64 12/26/24 15:11 Resp 18 12/26/24 15:11 BP 138/70 12/26/24 15:11 Pulse Ox 93 12/26/24 15:11 O2 Del Method Room Air 12/26/24 15:11 O2 Flow Rate 2 12/26/24 15:07 BMI result Body Mass Index 22.1 Objective Data Active Medications Acetaminophen (Acetaminophen 325 Mg Tablet) 975 mg PO Q6H PRN PRN Reason: Pain, Mild 1-3,fever,headache Apixaban (Apixaban 5 Mg Tablet) 5 mg PO BID [facility] Last Admin: 12/26/24 07:13 Dose: 2.5 mg Documented By: DIXIE Comments: patient request Calcium Carbonate (Calcium Carbonate 750 Mg Tab.Chew) 750 mg PO Q4H PRN PRN Reason: Heartburn Ceftriaxone Sodium (Ceftriaxone Sodium 1 Gm Vial) 1 gm IVPUSH Q24H [facility] Last Admin: 12/25/24 20:14 Dose: 1 gm Documented By: LAVERNE Dextrose (Dextrose 50 % 25 Gm/50 Ml Syringe) 25 gm IVPUSH Q15M PRN; Protocol PRN Reason: per Hypoglycemia Standing Ord. Glucose (Glucose Gel 15 Gm Gel..Gram.) 15 gm PO Q15M PRN; Protocol PRN Reason: per Hypoglycemia Standing Ord. Sodium Chloride (Ns) 1,000 mls @ 125 mls/hr IVCONT .Q8H [facility] Last Admin: 12/26/24 07:14 Dose: 125 mls/hr Documented By: DIXIE Doxycycline Hyclate 100 mg/ (Sodium Chloride) 250 mls @ 166.67 mls/hr IV Q12H [facility] Last Infusion: 12/26/24 13:54 Dose: Infused Documented By: DIXIE Insulin Human Lispro (Insulin Lispro 100 Unit/Ml 3 Ml Vial) 0 unit SUBCUT QIDACHS [facility]; Protocol Last Admin: 12/26/24 12:18 Dose: 4 unit Documented By: DIXIE Magnesium Hydroxide (Milk Of Magnesia 30 Ml Oral.Susp) 30 ml PO DAILY PRN PRN Reason: Constipation Melatonin (Melatonin 3 Mg Tablet) 6 mg PO BEDTIME PRN PRN Reason: Insomnia Ondansetron HCl (Ondansetron Hcl 4 Mg/2 Ml Vial) 4 mg IVPUSH Q8H PRN PRN Reason: Nausea and Vomiting Oxycodone HCl (Oxycodone Hcl Immed Release 5 Mg Tablet) 5 mg PO Q6H PRN PRN Reason: Pain, Severe (Pain Scale 7-10) Last Admin: 12/26/24 07:13 Dose: 5 mg Documented By: DIXIE Sodium Chloride (0.9 % Sodium Chloride Flush 3 Ml Syringe) 3 ml IVFLUSH [facility] Last Admin: 12/26/24 07:14 Dose: Not Given Documented By: DIXIE Non-Admin Reason: IV Running Tramadol HCl (Tramadol Hcl 50 Mg Tablet) 50 mg PO Q6H PRN PRN Reason: Pain, Moderate(Pain Scale 4-6) Labs 12/26/24 06:29 12/26/24 06:29 Labs: Laboratory Results - last 24 hr 12/25/24 12/25/24 12/26/24 16:03 19:29 06:29 MCV 95.2 MCH 32.3 MCHC 33.9 RDW 15.0 Plt Count 231 MPV 9.4 Immature Gran % (Auto) 1.1 H Neut % (Auto) 64.2 Lymph % (Auto) 25.4 [place] % (Auto) 7.7 Eos % (Auto) 1.2 Baso % (Auto) 0.4 Lymph # (Auto) 2.8 [place] # (Auto) 0.8 Eos # (Auto) 0.1 Baso # (Auto) 0.0 Abs Immat Gran (auto) 0.12 H Absolute Neuts (auto) 7.0 Absolute Nucleated RBC 0.000 Nucleated RBC % (auto) 0.0 Anion Gap 12 Estim Creat Clear Calc 57.5 Estimated GFR > 60 POC Glucose 161 H 167 H Random Glucose 159 H Calcium 8.1 L 12/26/24 12/26/24 07:45 11:31 MCV MCH MCHC RDW Plt Count MPV Immature Gran % (Auto) Neut % (Auto) Lymph % (Auto) [place] % (Auto) Eos % (Auto) Baso % (Auto) Lymph # (Auto) [place] # (Auto) Eos # (Auto) Baso # (Auto) Abs Immat Gran (auto) Absolute Neuts (auto) Absolute Nucleated RBC Nucleated RBC % (auto) Anion Gap Estim Creat Clear Calc Estimated GFR POC Glucose 163 H 214 H Random Glucose Calcium Microbiology Microbiology Results: Microbiology 12/24/24 19:44 Blood Culture - Preliminary Blood - Venous No growth after 24 hours. 12/24/24 18:53 Blood Culture - Preliminary Blood - Venous No growth after 24 hours. Assessment and Plan (1) Acute hypoxemic respiratory failure: Status: Acute (2) Community acquired pneumonia: Status: Acute Plan Patient is an 89-year-old male with a past medical history significant for hypertension, aortic stenosis, type 2 diabetes, hyperlipidemia, hypothyroid, atrial flutter on Eliquis, who presented to the ED due to dyspnea at rest and worse with exertion for the past few days. Pt is admitted to the hospital for acute hypoxic respiratory failure in the setting of pneumonia. Acute hypoxic respiratory failure secondary to pneumonia Hypoxia, no sepsis Chest x-ray with left upper lobe pneumonia and questionable large mass Chest CT with dense somewhat masslike consolidation within the left upper lobe with mediastinal adenopathy as detailed. Suspect this reflects advanced pneumonia, especially given that this was not present on 10/28/2024 radiograph. Malignancy is not entirely excluded and close interval follow-up would be recommended. COVID/flu/RSV negative Continue ceftriaxone and doxycycline, day 3 Titrate oxygen as needed Follow-up outpatient for repeat imaging regarding possible mass on chest CT Acute lactic acidosis Secondary to hypoxia, not severe sepsis Elevated troponins Initial troponin 78.5 with repeat flat at 43.7 Pt asymptomatic, EKG without acute ischemia Monitor on telemetry Hypertension Continue home meds when appropriate Type 2 diabetes Sliding scale insulin Diabetic diet Hyperlipidemia Continue home meds Hypothyroid Continue levothyroxine Atrial flutter Continue Eliquis at 5mg bid; pt previously dosed at 2.5mg Full code VTE prophylaxis: Eliquis Given advanced and mass-like appearance of pneumonia, pt will require additional hospital stay for continued IV antibiotic use while awaiting blood cultures. Quality Stroke Does the patient have a stroke diagnosis?: No VTE Prior VTE?: No VTE Risk Level:: Medical - moderate - high VTE Device Contraindication: Treatment Not Indicated VTE Drug Contraindication: N/A - Med Ordered
[2024-12-26 16:14] LABS: Glucose, Whole Blood 162 mg/dL (60-115)
[2024-12-26] MEDS: 0.9 % Sodium Chloride Flush 3 ML SYRINGE IVFLUSH (16:20)
[2024-12-26] MEDS: Metoprolol Succinate ER 25 MG TAB.ER.24H PO (18:00)
[2024-12-26] MEDS: dilTIAZem HCL CD 180 MG CAP.ER.24H PO (18:00)
[2024-12-26] MEDS: Ferrous Sulfate 324 MG TABLET.DR PO (18:00)
[2024-12-26 20:13] LABS: Glucose, Whole Blood 147 mg/dL (60-115)
[2024-12-26] MEDS: Milk of Magnesia 30 ML ORAL.SUSP PO (23:07)
[2024-12-26] MEDS: Artificial Tears 15 ML DROPS 1 DROP EYE-BOTH (23:07)
[2024-12-27] MEDS: 0.9 % Sodium Chloride Flush 3 ML SYRINGE IVFLUSH ×2 (02:25→07:51)
[2024-12-27 03:36] VITALS: BP 164/70; PULSE 63; RESP 16; TEMP 36.6; O2SAT 94
[2024-12-27 06:16] LABS: MANUAL DIFF FLAG NO
[2024-12-27 06:29] LABS: Hematocrit 36.4 % (42.0-52.0); Hemoglobin 12.1 g/dl (14.0-18.0); Imm Gran Abs Auto 0.11 X10*3/uL (0.00-0.03); Imm Gran Pct Auto 1.0 % (0.0-0.4); Lymphocytes Absolute Auto 4.5 X10*3/uL (1.2-4.9); Mean Corpuscular HGB Conc 33.2 g/dl (31.0-36.0); Mean Corpuscular Hemoglobin 31.8 pg (27.0-33.0); Mean Corpuscular Volume 95.8 fL (80.0-98.0); NRBC Abs Auto 0.000 X10*3/uL (0.0-0.012); NRBC Pct Auto 0.0 /100WBC (0.0-0.2); Platelet Count 238 X10*3/uL (160-400); Red Blood Count 3.80 X10*6/uL (4.60-5.80); White Blood Count 11.4 X10*3/uL (4.8-10.8)
[2024-12-27 06:42] LABS: Anion Gap 10 (12-20); Blood Urea Nitrogen 15 mg/dL (9-16); Calcium 8.1 mg/dL (8.4-10.2); Carbon Dioxide 27 mmol/L (22-29); Chloride 106 mmol/L (96-108); Creatinine Clr Calc Pharmacy 61.8; Estimated Glomerular Filt Rate > 60; Potassium 3.7 mmol/L (3.3-5.1); Sodium 139 mmol/L (135-145)
[2024-12-27 07:40] VITALS: BP 148/90; PULSE 64; RESP 16; TEMP 37.1; O2SAT 91
[2024-12-27 07:41] LABS: Glucose, Whole Blood 161 mg/dL (60-115)
[2024-12-27] MEDS: dilTIAZem HCL CD 180 MG CAP.ER.24H PO (07:49)
[2024-12-27] MEDS: Ferrous Sulfate 324 MG TABLET.DR PO (07:50)
[2024-12-27 09:56] VITALS: BP 148/90; PULSE 64; O2SAT 91
[2024-12-27 11:47] LABS: Glucose, Whole Blood 265 mg/dL (60-115)
--- NOTE | 2024-12-27 11:50 | PM.CNPUL ---
History of Present Illness History of Present Illness Consult date: 12/27/24 Chief complaint: Dyspnea Narrative: 89-year-old gentleman with underlying history of hypertension, aortic stenosis, diabetes mellitus, hypothyroidism, AFlutter on Eliquis admitted on 12/24/[address] chest showing left lobe masslike consolidation present on x-ray 2 months prior. Patient was treated with empiric antibiotics with improvement in his symptoms. Pulmonary evaluation for consideration of further workup was requested. Patient is currently following with [facility]. Review of Systems Constitutional: Constitutional: Denies daytime sleepiness, Denies excessive sweating, Denies fatigue, Denies fever(s), Denies lethargy, Denies malaise, Denies night sweats, Denies snoring and Denies weight loss Eyes: Eyes: Denies blurry vision and Denies itchy eyes ENT: Denies nasal congestion, Denies post nasal drip, Denies sinus pain, Denies sinus pressure and Denies other ( Thrush) Cardiovascular: Cardiovascular: Denies chest pain, Denies pedal edema, Denies dyspnea, Denies orthopnea and Denies paroxysmal nocturnal dyspnea Respiratory: Respiratory: Reports cough, Denies hemoptysis, Denies excessive phlegm production, Denies dyspnea, Denies snoring and Denies wheezing Gastrointestinal: Gastrointestinal: Denies abdominal pain and Denies heartburn Musculoskeletal: Musculoskeletal: Denies myalgias, Denies arthralgias and Denies joint swelling Integumentary/Breasts: Skin/Breast: Denies rash Neurologic: Denies memory loss and Denies seizure-like activity Psychiatric: Psychiatric: Denies abnormal sleep pattern, Denies anxiety and Denies memory loss Endocrine: Endocrine: Denies excessive sweating, Denies fatigue and Denies heat intolerance Hematologic/Lymphatic: Hematologic/Lymphatic: Denies easy bruising Allergic/Immunologic: Allergic/Immunologic: Denies itchy eyes, Denies seasonal rhinorrhea and Denies wheezing PMFSH Past Medical History Medical History Hypercalcemia TAYLOR (acute kidney injury) Acute hyperglycemia HTN (hypertension) Aortic stenosis Arthritis of right knee Calcific tendinitis of left shoulder Orthostasis (~2014) Diabetes mellitus (~2014) Knee effusion (~11/15/14) Hyperlipidemia (~2012) Hypothyroidism (~2012) Family History Family History Father No problems noted. 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 Meds Allergies Allergy/AdvReac Type Severity Reaction Status Date / Time No Known Allergies (No Known Allergy Verified 12/24/24 15:05 Allergies*) Active Medications: Current Medications Acetaminophen (Acetaminophen 325 Mg Tablet) 975 mg PO Q6H PRN PRN Reason: Pain, Mild 1-3,fever,headache Apixaban (Apixaban 5 Mg Tablet) 5 mg PO BID [facility] Last Admin: 12/27/24 07:50 Dose: 5 mg Artificial Tears (Artificial Tears 15 Ml Drops) 1 drop EYE-BOTH TID COUNT [facility]CLUD[facility] Last Admin: 12/26/24 23:07 Dose: 1 drop Ascorbic Acid (Ascorbic Acid 500 Mg Tablet) 1,000 mg PO DAILY COUNT [facility] Last Admin: 12/27/24 07:50 Dose: 1,000 mg Atorvastatin Calcium (Atorvastatin Calcium 80 Mg Tablet) 80 mg PO DAILY COUNT [facility] Last Admin: 12/27/24 07:50 Dose: 80 mg Calcium Carbonate (Calcium Carbonate 750 Mg Tab.Chew) 750 mg PO Q4H PRN PRN Reason: Heartburn Carbamide Peroxide (Carbamide Peroxide 6.5% Otic 15 Ml Drpbtl) 5 drop EAR-BOTH TID PRN PRN Reason: excess ear wax Ceftriaxone Sodium (Ceftriaxone Sodium 1 Gm Vial) 1 gm IVPUSH Q24H [facility] Last Admin: 12/26/24 22:10 Dose: 1 gm Dextrose (Dextrose 50 % 25 Gm/50 Ml Syringe) 25 gm IVPUSH Q15M PRN; Protocol PRN Reason: per Hypoglycemia Standing Ord. Diltiazem HCl (Diltiazem Hcl Cd 180 Mg Cap.Er.24h) 180 mg PO DAILY COUNT [facility]; Protocol Last Admin: 12/27/24 07:49 Dose: 180 mg Ferrous Sulfate (Ferrous Sulfate 324 Mg Tablet.Dr) 324 mg PO DAILY COUNT [facility] Last Admin: 12/27/24 07:50 Dose: 324 mg Furosemide (Furosemide 40 Mg Tablet) 40 mg PO DAILY COUNT [facility]; Protocol Last Admin: 12/27/24 07:49 Dose: 40 mg Glipizide (Glipizide 5 Mg Tablet) 5 mg PO DAILY COUNT [facility] Last Admin: 12/27/24 07:49 Dose: 5 mg Glucose (Glucose Gel 15 Gm Gel..Gram.) 15 gm PO Q15M PRN; Protocol PRN Reason: per Hypoglycemia Standing Ord. Doxycycline Hyclate 100 mg/ (Sodium Chloride) 250 mls @ 166.67 mls/hr IV Q12H [facility] Last Infusion: 12/27/24 06:23 Dose: Infused Insulin Human Lispro (Insulin Lispro 100 Unit/Ml 3 Ml Vial) 0 unit SUBCUT QIDACHS COUNT [facility]; Protocol Last Admin: 12/27/24 07:51 Dose: 2 unit Levothyroxine Sodium (Levothyroxine Sodium 125 Mcg Tablet) 125 mcg PO DAILY@0600 [facility] Last Admin: 12/27/24 06:54 Dose: 125 mcg Magnesium Hydroxide (Milk Of Magnesia 30 Ml Oral.Susp) 30 ml PO DAILY PRN PRN Reason: Constipation Last Admin: 12/26/24 23:07 Dose: 30 ml Melatonin (Melatonin 3 Mg Tablet) 6 mg PO BEDTIME PRN PRN Reason: Insomnia Metoprolol Succinate (Metoprolol Succinate Er 25 Mg Tab.Er.24h) 25 mg PO BEDTIME COUNT [facility]; Protocol Last Admin: 12/26/24 18:00 Dose: 25 mg Ondansetron HCl (Ondansetron Hcl 4 Mg/2 Ml Vial) 4 mg IVPUSH Q8H PRN PRN Reason: Nausea and Vomiting Oxycodone HCl (Oxycodone Hcl Immed Release 5 Mg Tablet) 5 mg PO Q6H PRN PRN Reason: Pain, Severe (Pain Scale 7-10) Last Admin: 12/26/24 07:13 Dose: 5 mg Sodium Chloride (0.9 % Sodium Chloride Flush 3 Ml Syringe) 3 ml IVFLUSH QSHIFT [facility] Last Admin: 12/27/24 07:51 Dose: 3 ml Tamsulosin HCl (Tamsulosin Hcl 0.4 Mg Capsule) 0.4 mg PO BEDTIME COUNT [facility] Last Admin: 12/26/24 22:11 Dose: 0.4 mg Tramadol HCl (Tramadol Hcl 50 Mg Tablet) 50 mg PO Q6H PRN PRN Reason: Pain, Moderate(Pain Scale 4-6) Vitamin D (Cholecalciferol (Vitamin D3) 25 Mcg Tablet) 50 mcg PO BEDTIME [facility] Last Admin: 12/26/24 22:11 Dose: 50 mcg Home Medications ?Medication ?Instructions ?Recorded ?Confirmed ?Last Taken ?Type atorvastatin 80 mg tablet 80 mg PO DAILY 04/02/20 12/25/24 12/24/24 History tamsulosin 0.4 mg capsule 0.4 mg PO BEDTIME 04/02/20 12/25/24 12/24/24 History metformin 500 mg tablet 1,000 mg PO BID 09/20/21 12/25/24 12/24/24 History apixaban 5 mg tablet (Eliquis) 2.5 mg PO BID 03/08/22 12/25/24 12/24/24 History blood sugar diagnostic (FreeStyle #10 ea 08/28/22 10/28/24 Unknown History Lite Strips) furosemide 40 mg tablet 40 mg PO DAILY 08/28/22 12/25/24 12/24/24 History levothyroxine 125 mcg tablet 125 mcg PO DAILY@0600 08/28/22 12/25/24 12/24/24 History cholecalciferol (vitamin D3) 50 50 mcg PO BEDTIME 11/24/22 12/25/24 12/23/24 History mcg (2,000 unit) tablet (Vitamin D3) coenzyme Q10 100 mg capsule 100 mg PO DAILY 11/24/22 12/25/24 12/24/24 History (CoQ-10) ferrous sulfate 325 mg (65 mg 325 mg PO DAILY 11/24/22 12/25/24 12/24/24 History iron) tablet (FeroSul) omega 9-oxi-scd-fish oil 1,000 mg 1 cap PO DAILY 11/24/22 12/25/24 12/24/24 History (120 mg-180 mg) capsule (Fish Oil) ascorbic acid (vitamin C) 500 mg 1,000 mg PO DAILY 12/25/24 12/25/24 12/24/24 History tablet (Vitamin C) carbamide peroxide 6.5 % ear drops 5 drp otic (ears) TID 12/25/24 12/25/24 12/24/24 History diltiazem HCl 180 mg 180 mg PO DAILY 12/25/24 12/25/24 12/24/24 History capsule,extended release 24 hr, controlled (DILT-XR) glipizide 5 mg tablet 5 mg PO DAILY 12/25/24 12/25/24 12/24/24 History peg 400-propylene glycol 0.4 %-0.3 1 drp ophthalmic (eye) TID Dry Eye 12/25/24 12/25/24 12/24/24 History % eye drops sitagliptin 50 mg tablet 50 mg PO DAILY 12/25/24 12/25/24 12/24/24 History Physical Exam Vital Signs: Vital Signs: Last Vital Signs Temp 98.7 F 12/27/24 07:40 Pulse 64 12/27/24 09:56 Resp 16 12/27/24 07:40 BP 148/90 H 12/27/24 09:56 Pulse Ox 91 L 12/27/24 09:56 O2 Del Method Room Air 12/27/24 07:40 O2 Flow Rate 2 12/26/24 15:07 BMI result Body Mass Index 22.1 Const: General: no acute distress and alert Nutritional Appearance: not obese Orientation/consciousness: Other orientation findings ( oriented) HEENT: Head: Yes atraumatic Eyes: General: appearance normal, both eyes and all related structures Sclerae: sclerae normal EOM: EOMs intact bilaterally Neck: Neck: Yes supple Lymphatic: no lymphadenopathy noted Resp: Effort & Inspection: normal respiratory effort and no use of accessory muscles Auscultation: clear to auscultation bilaterally Cardio: Rate: regular rate Rhythm: regular rhythm Heart sounds: no gallops, no murmurs and no rubs GI: Palpation (GI): Soft to palpation and Other GI palpation findings present ( Nontender) Auscultation: normal bowel sounds Skin: General skin exam: other ( warm) Extrem: General: No clubbing, No cyanosis and No edema Results Laboratory Findings 12/27/24 05:45 12/27/24 05:45 ABG, PT/INR, D-dimer: PT/INR, D-dimer PT 16.4 SEC (10.9-12.4) H 12/24/24 18:53 INR 1.4 (0.9-1.1) H 12/24/24 18:53 Abnormal lab findings: Abnormal Labs 12/24/24 12/24/24 12/24/24 15:21 18:53 22:08 WBC 13.8 H RBC 3.77 L Hgb 12.3 L Hct 35.7 L MPV 9.2 L Immature Gran % (Auto) 1.2 H Neut % (Auto) 73.2 H Lymph % (Auto) 19.2 L Abs Immat Gran (auto) 0.17 H Absolute Neuts (auto) 10.1 H PT 16.4 H INR 1.4 H APTT 37.1 H Sodium 132 L Anion Gap BUN 35 H Creatinine 1.47 H POC Glucose Random Glucose 263 H Lactic Acid 3.1 H* Lactic Acid F/U @ 2Hr 2.2 H* Lactic Acid F/U @ 4Hr Calcium AST 54 H Alkaline Phosphatase 189 H Troponin I High Sens 78.5 H D B-Natriuretic Peptide 227 H Albumin 3.3 L 12/25/24 12/25/24 12/25/24 01:07 04:56 06:50 WBC 13.0 H RBC 3.72 L Hgb 11.9 L Hct 35.5 L MPV Immature Gran % (Auto) 0.9 H Neut % (Auto) Lymph % (Auto) Abs Immat Gran (auto) 0.12 H Absolute Neuts (auto) 9.0 H PT INR APTT Sodium Anion Gap BUN 32 H Creatinine POC Glucose 201 H Random Glucose 234 H Lactic Acid Lactic Acid F/U @ 2Hr Lactic Acid F/U @ 4Hr 3.8 H* Calcium AST Alkaline Phosphatase Troponin I High Sens 43.7 H B-Natriuretic Peptide Albumin 12/25/24 12/25/24 12/25/24 12:57 16:03 19:29 WBC RBC Hgb Hct MPV Immature Gran % (Auto) Neut % (Auto) Lymph % (Auto) Abs Immat Gran (auto) Absolute Neuts (auto) PT INR APTT Sodium Anion Gap BUN Creatinine POC Glucose 189 H 161 H 167 H Random Glucose Lactic Acid Lactic Acid F/U @ 2Hr Lactic Acid F/U @ 4Hr Calcium AST Alkaline Phosphatase Troponin I High Sens B-Natriuretic Peptide Albumin 12/26/24 12/26/24 12/26/24 06:29 07:45 11:31 WBC 10.9 H RBC 3.75 L Hgb 12.1 L Hct 35.7 L MPV Immature Gran % (Auto) 1.1 H Neut % (Auto) Lymph % (Auto) Abs Immat Gran (auto) 0.12 H Absolute Neuts (auto) PT INR APTT Sodium Anion Gap BUN 17 H Creatinine POC Glucose 163 H 214 H Random Glucose 159 H Lactic Acid Lactic Acid F/U @ 2Hr Lactic Acid F/U @ 4Hr Calcium 8.1 L AST Alkaline Phosphatase Troponin I High Sens B-Natriuretic Peptide Albumin 12/26/24 12/26/24 12/27/24 16:08 20:01 05:45 WBC 11.4 H RBC 3.80 L Hgb 12.1 L Hct 36.4 L MPV Immature Gran % (Auto) 1.0 H Neut % (Auto) Lymph % (Auto) Abs Immat Gran (auto) 0.11 H Absolute Neuts (auto) PT INR APTT Sodium Anion Gap 10 L BUN Creatinine POC Glucose 162 H 147 H Random Glucose 163 H Lactic Acid Lactic Acid F/U @ 2Hr Lactic Acid F/U @ 4Hr Calcium 8.1 L AST Alkaline Phosphatase Troponin I High Sens B-Natriuretic Peptide Albumin 12/27/24 12/27/24 07:26 11:32 WBC RBC Hgb Hct MPV Immature Gran % (Auto) Neut % (Auto) Lymph % (Auto) Abs Immat Gran (auto) Absolute Neuts (auto) PT INR APTT Sodium Anion Gap BUN Creatinine POC Glucose 161 H 265 H Random Glucose Lactic Acid Lactic Acid F/U @ 2Hr Lactic Acid F/U @ 4Hr Calcium AST Alkaline Phosphatase Troponin I High Sens B-Natriuretic Peptide Albumin Microbiology: Microbiology 12/24/24 19:44 Blood - Venous Blood Culture - Preliminary No growth after 48 hours. 12/24/24 18:53 Blood - Venous Blood Culture - Preliminary No growth after 48 hours. Assessment and Plan (1) Abnormal CT scan, chest: Status: Acute (2) Acute hypoxemic respiratory failure: Status: Acute (3) Community acquired pneumonia: Status: Acute Plan Impression: 89-year-old gentleman with underlying aortic stenosis, AFlutter on Eliquis, admitted with dyspnea and hypoxia with what appears to be community-acquired pneumonia with left upper lobe masslike infiltrate. It is unlikely to be new malignancy as it is approximately 5 cm in diameter and was not present on chest x-ray imaging 2 months prior. Therefore it is likely an infectious lobar infiltrate. Recommendation: Agree with treatment for community-acquired pneumonia, though would extend for the next 14 days. Would consider repeating chest imaging in 6-8 weeks to document resolution. Procedures Date of Service Date of Service: 12/27/24
[2024-12-27] MEDS: Artificial Tears 15 ML DROPS 1 DROP EYE-BOTH (11:58)
--- NOTE | 2024-12-27 11:58 | P.F2F_ITS ---
Service Date Service Date: 12/27/24 Encounter Date of encounter: 12/27/24 Reasons for Services Signs and symptoms assessed: Community-acquired pneumonia Reason for [facility]: CV/CP assess and/or care Homebound: Leaving the home is medically contraindicated at this time without the asist of a device and/or another person due th the listed conditions above and below. Reason homebound: unsteady gait / fall risk and weakness related to hospital stay Certification: Based on the above findings, I certify that this patient is confined to the home and needs intermittent [facility] care, physical therapy and/or speech therapy, or continues to need occupational therapy. The patient is under my care, and I have initiated the establishment of the plan of care. The patient will be followed by a physician who will periodically review the plan of care. Time Spent With Patient Time: Total time managing care of this patient today ____ minutes.
--- NOTE | 2024-12-27 11:59 | P.DS_ITS ---
DS: Providers Provider Date of Service: 12/27/24 Date of admission: 12/24/24 23:43 Date of discharge: 12/27/24 Primary care physician: Orestes Alex MD Consults: 12/27/24 07:38 Consult to Pulmonology Routine Consulting Provider: [facility] Pulmonology Services Reason for consultation: mass on ct DS: Diagnosis Discharge Diagnosis (1) Abnormal CT scan, chest: Status: Acute (2) Acute hypoxemic respiratory failure: Status: Acute (3) Community acquired pneumonia: Status: Acute DS: Summary Hospital Course Hospital Course: History and physical as per admitting provider. Patient is an 89-year-old male with a past medical history significant for hypertension, aortic stenosis, type 2 diabetes, hyperlipidemia, hypothyroid, atrial flutter on Eliquis, who presented to the ED due to dyspnea at rest and worse with exertion for the past few days. He reports difficulty with walking due to leg weakness however no falls. He reports that he has been going through a workup to evaluate for home oxygen. He denies any productive cough, fever, chills, nausea or vomiting. No abdominal pain or urinary symptoms. Acute hypoxic respiratory failure secondary to pneumonia, Hypoxia, no sepsis. Chest CT with dense somewhat masslike consolidation within the left upper lobe with mediastinal adenopathy as detailed. Suspect reflects advanced pneumonia, especially given that this was not present on 10/28/2024 radiograph. Malignancy excluded as per pulmonology. COVID/flu/RSV negative. Treated with ceftriaxone and doxycycline. Plan will be to discharge with a total of 14 days of antibiotics and repeat chest x-ray in 6 weeks as per slot service specialist. Acute lactic acidosis. Secondary to hypoxia, not severe sepsis Elevated troponins. Initial troponin 78.5 with repeat flat at 43.7. pt asymptomatic, EKG without acute ischemia Hypertension. Continue home meds Type 2 diabetes. Treated with sliding scale during hospitalization. Continue home medications Hyperlipidemia. Continue home meds Hypothyroid. Continue levothyroxine Atrial flutter. Continue Eliquis at 5mg bid; pt previously dosed at 2.5mg Time Attestation Discharge Coordination Time (in mins): 50 Quality: Safe Use of Opioids Does Pt have an Active Cancer Diagnosis on the Problem List?: No Quality: Stroke Does the patient have a stroke diagnosis?: No Physical Exam Exam: Exam: Appearing in no acute distress head is normocephalic atraumatic eyes pupils are PERRLA sclera is anicteric mouth throat mucous membranes are intact and moist neck is supple no lymphadenopathy, no JVD noted lung sounds are clear to auscultation heart regular rate rhythm, clear S1, S2 positive bowel sounds, abdomen is soft, nontender neuro patient is alert x3, no focal deficits Vital Signs: Vital Signs: Last Vital Signs Temp 98.7 F 12/27/24 07:40 Pulse 64 12/27/24 09:56 Resp 16 12/27/24 07:40 BP 148/90 H 12/27/24 09:56 Pulse Ox 91 L 12/27/24 09:56 O2 Del Method Room Air 12/27/24 07:40 O2 Flow Rate 2 12/26/24 15:07 BMI result Body Mass Index 22.1 DS: Data Data Completed and Pending Labs on day of discharge: Laboratory Results - last 24 hr 12/26/24 12/26/24 12/27/24 16:08 20:01 05:45 WBC 11.4 H RBC 3.80 L Hgb 12.1 L Hct 36.4 L MCV 95.8 MCH 31.8 MCHC 33.2 RDW 15.3 Plt Count 238 MPV 9.4 Immature Gran % (Auto) 1.0 H Neut % (Auto) 50.8 Lymph % (Auto) 39.3 Bradley % (Auto) 7.0 Eos % (Auto) 1.4 Baso % (Auto) 0.5 Lymph # (Auto) 4.5 Bradley # (Auto) 0.8 Eos # (Auto) 0.2 Baso # (Auto) 0.1 Abs Immat Gran (auto) 0.11 H Absolute Neuts (auto) 5.8 Absolute Nucleated RBC 0.000 Nucleated RBC % (auto) 0.0 Sodium 139 Potassium 3.7 Chloride 106 Carbon Dioxide 27 Anion Gap 10 L BUN 15 Creatinine 0.80 Estim Creat Clear Calc 61.8 Estimated GFR > 60 POC Glucose 162 H 147 H Random Glucose 163 H Calcium 8.1 L Hold Yellow Top See Note 12/27/24 12/27/24 07:26 11:32 WBC RBC Hgb Hct MCV MCH MCHC RDW Plt Count MPV Immature Gran % (Auto) Neut % (Auto) Lymph % (Auto) Bradley % (Auto) Eos % (Auto) Baso % (Auto) Lymph # (Auto) Bradley # (Auto) Eos # (Auto) Baso # (Auto) Abs Immat Gran (auto) Absolute Neuts (auto) Absolute Nucleated RBC Nucleated RBC % (auto) Sodium Potassium Chloride Carbon Dioxide Anion Gap BUN Creatinine Estim Creat Clear Calc Estimated GFR POC Glucose 161 H 265 H Random Glucose Calcium Hold Yellow Top Preliminary micro results at discharge 12/24/24 19:44 Blood Culture - Preliminary Blood - Venous No growth after 48 hours. 12/24/24 18:53 Blood Culture - Preliminary Blood - Venous No growth after 48 hours. Discharge Plan Discharge Anticipated Discharge Date/Time: 12/27/24 11:51 Patient Disposition: Home Health Service Discharge Diagnosis: Acute hypoxic respiratory failure Pneumonia Acute lactic acidosis Elevated troponin Referrals: Orestes Alex MD [Primary Care Provider, Medical] - 1 Week Discharge Medications: New cefuroxime axetil 500 mg tablet 500 mg PO BID Qty: 24 0RF doxycycline hyclate 100 mg tablet 100 mg PO BID Qty: 24 0RF Continued metoprolol succinate 25 mg tablet extended release 24 hr 25 mg PO BEDTIME Qty: 90 2RF ferrous sulfate [FeroSul] 325 mg (65 mg iron) tablet 325 mg PO DAILY coenzyme Q10 [CoQ-10] 100 mg Capsule 100 mg PO DAILY cholecalciferol (vitamin D3) [Vitamin D3] 50 mcg (2,000 unit) Tablet 50 mcg PO BEDTIME omega 6-iad-ocp-fish oil [Fish Oil] 1,000 mg (120 mg-180 mg) Capsule 1 cap PO DAILY diltiazem HCl [DILT-XR] 180 mg capsule,ext.rel 24h degradable 180 mg PO DAILY ascorbic acid (vitamin C) [Vitamin C] 500 mg Tablet 1,000 mg PO DAILY carbamide peroxide 6.5 % Drops 5 drp OTIC (EARS) TID peg 400-propylene glycol 0.4-0.3 % Drops 1 drp OPHTHALMIC (EYE) TID sitagliptin 50 mg Tablet 50 mg PO DAILY glipizide 5 mg tablet 5 mg PO DAILY atorvastatin 80 mg tablet 80 mg PO DAILY tamsulosin 0.4 mg capsule 0.4 mg PO BEDTIME metformin 500 mg tablet 1,000 mg PO BID furosemide 40 mg tablet 40 mg PO DAILY levothyroxine 125 mcg tablet 125 mcg PO DAILY@0600 (DME) FreeStyle Lite Strips Strip See Rx Instructions .ROUTE DAILY Qty: 10 Rx Instructions: As directed Eliquis 5 mg tablet 2.5 mg PO BID Rx Instructions: Patient cuts tablet in half for 2.5mg BID, due to cost Discharge Orders: Discharge Order (Routine); Ordered 12/27/24 Ordered By: Sharda Jarrett Diet: Advance to usual diet Activity on Discharge: As tolerated Stand Alone Forms: Patient Portal Discharge page Print Language: Georgian Other Ambulatory Orders: XR chest 1V (Routine) Timeframe: [id number] Facility: [facility] - Location: Radiology Ordered By: Sharda Jarrett Care Plan Goals: Complete course of antibiotics Repeat chest x-ray in 6 weeks Health Concerns: Acute hypoxic respiratory failure Pneumonia Acute lactic acidosis Elevated troponin Plan of Treatment: Follow up with primary care provider as needed Take all medications as prescribed Assessment: See discharge summary
== END 2024-12-27 14:03 | disposition home health service (06) | DRG 193 ==
LOC: HO.ED 23:53 → HO.EDOVER 12-25 00:38 → HO.S3 12-25 11:58
PROVIDERS: Physician Assistant; Physician Assistant Medical; Student in an Organized Health Care Education/Training Program; Admitting Provider Student in an Organized Health Care Education/Training Program; Emergency Provider Internal Medicine; PCP Internal Medicine; Visit Provider Nurse Practitioner Acute Care
DX: J18.9 Pneumonia, unspecified organism (principal); J96.01 Acute respiratory failure with hypoxia; N17.9 Acute kidney failure, unspecified; E87.21 Acute metabolic acidosis; I48.92 Unspecified atrial flutter; E03.9 Hypothyroidism, unspecified; I10 Essential (primary) hypertension; E78.5 Hyperlipidemia, unspecified; Z20.822 Contact with and (suspected) exposure to COVID-19; Z59.2 Discord with neighbors, lodgers and landlord; Z87.891 Personal history of nicotine dependence; Z79.01 Long term (current) use of anticoagulants; Z79.84 Long term (current) use of oral hypoglycemic drugs; Z79.890 Hormone replacement therapy; Z79.899 Other long term (current) drug therapy
CPT/HCPCS: 36415; 71045; 71250; 80048; 80053; 82803; 82947; 83605; 83735; 83880; 84484; 85025; 85379; 85610; 85730; 87040; 87637; 93005; 97161; 99285; J0696; J1271

== ENCOUNTER → 2024-12-24 15:09 | Outpatient (BNV) | payer MEDICARE, SELFPAY ==
[2024-12-23 15:15] VITALS: BP 122/60; BP 134/60; BMI 24.7
== END ==
PROVIDERS: Emergency Provider Internal Medicine; PCP Internal Medicine; Visit Provider Internal Medicine
DX: I44.0 Atrioventricular block, first degree (principal); I48.92 Unspecified atrial flutter; I44.4 Left anterior fascicular block
CPT/HCPCS: 93010

== ENCOUNTER → 2024-12-24 15:13 | Outpatient (BNV) | payer MEDICARE, SELFPAY ==
[2024-12-23 15:15] VITALS: BP 122/60; BP 134/60; BMI 24.7
== END ==
PROVIDERS: PCP Internal Medicine; Visit Provider Radiology Diagnostic Radiology
DX: J18.9 Pneumonia, unspecified organism (principal); R06.02 Shortness of breath
CPT/HCPCS: 71250

== ENCOUNTER → 2024-12-24 23:43 | Outpatient (BNV) | payer MEDICARE, SELFPAY ==
[2024-12-23 15:15] VITALS: BP 122/60; BP 134/60; BMI 24.7
== END ==
PROVIDERS: Admitting Provider Student in an Organized Health Care Education/Training Program; Emergency Provider Internal Medicine; PCP Internal Medicine; Visit Provider Internal Medicine Pulmonary Disease
DX: R93.89 Abnormal findings on diagnostic imaging of other specified body structures (principal); J96.01 Acute respiratory failure with hypoxia; J18.9 Pneumonia, unspecified organism
CPT/HCPCS: 99223

== ENCOUNTER → 2024-12-24 23:43 | Outpatient (BNV) | payer MEDICARE, SELFPAY ==
[2024-12-23 15:15] VITALS: BP 122/60; BP 134/60; BMI 24.7
== END ==
PROVIDERS: Admitting Provider Student in an Organized Health Care Education/Training Program; Emergency Provider Internal Medicine; PCP Internal Medicine; Visit Provider Physician Assistant
DX: R93.89 Abnormal findings on diagnostic imaging of other specified body structures (principal); J96.01 Acute respiratory failure with hypoxia; J18.9 Pneumonia, unspecified organism
CPT/HCPCS: 99223; 99232; 99239; G0180

== ENCOUNTER 2025-01-09 12:14 | Outpatient (REF) | payer MEDICARE, SELFPAY ==
--- OUTSIDE RECORDS SUMMARY | 2010-08-11 07:08 | XMS_ITS | Continuity of Care Document ---
Author Organization [facility] Address [address] [place] [address] Phone Care Team Providers Care Bun Icer Name Role Phone BEVERLY DAVILA [facility], [place] Unavailable Unavailable Procedures Procedure Date STRESS ECHO W/PHY SUP/REPT DOPPLER ECHO EXAM, HEART DOPPLER COLOR FLOW ADD-ON Advance Directives Directive Yes / No Effective Date File Name No Information Encounters Encounter Description Practice Location Reason(s) For Visit Diagnoses Date Provider Providers Copied on Encounter [facility], [address], [place], [address], [place] tel:[phone] [facility] Office No Information BEVERLY DAVILA [facility] [place]. [address], [facility], [place], [place], [address], [place]. tel:[phone] [facility], [address], [place], [address], [place] tel:[phone] [facility] Office Shortness of Breath BEVERLY DAVILA [facility] [place]. [address], [facility], [place], [place], [id number], [place]. tel:[phone] Referring Provider: Cherie Badillo NP [facility], [address] [facility], [place], [address]. tel:[phone] Family History Family Member Type Diagnosis Age At Onset No Information Payers Payer name Insurance type Covered libertarian ID Authorgricel lora(s) Medicare Part B [id number] [facility] Out Of Area [id number] Social History Type Description Quantity Date Captured [...]
--- OUTSIDE RECORDS SUMMARY | 2024-09-01 09:00 | XMS_ITS ---
Author Organization [facility] Address [address] [place] [address] Care Team Providers Care Ground Support Equipment Assembler Name Role Phone Orestes Alex MD Primary Care Provider Xenia Rojas [phone] Mark Encounters Encounter Location Date Provider Diagnosis [address] [address] 09/01/2024 Xenia Hernández Plan Of Treatment Next Appt Details Provider Name:Xenia Hernández , 03/05/2025 11:15:00 AM, [address] [place] [address], [phone], Progress Notes * Richard CAT WDOB:1935 (89 yo M)Acc No.[id number]:09/01/2024 Progress Note Patient: Richard HERRERA Provider: Sherita Hernández DPM :1935 A ge:89 Y S ex:Male Date:09/01/2024 [address] [id number] Pcp:Orestes Alex MD Subjective: * Chief Complaints: [...] 09/01/2024 Generated for Morelia Ortega on: 0 01/09/2025 12:18 PM EDT
[2024-12-23 15:15] VITALS: BP 122/60; BP 134/60; BMI 24.7
--- NOTE | ~2025-01-09 | XR_ITS ---
EXAMINATION: XR CHEST CLINICAL INFORMATION: PNEMONIA COMPARISON: Correlation made with x-ray and CT exam 12/24/2024. TECHNIQUE: 2 views of the chest were obtained. FINDINGS: There is mild cardiac enlargement. There is an aortic valve replacement (TAVR). Aortic mural calcifications. Hilar silhouettes appear normal. Lungs are diffusely hyperaerated. There is segmental consolidation in the posterior left upper lobe, consistent with improving pneumonia as compared with the prior exam. There are patchy basilar opacities, also improving. There is no pneumothorax or pleural effusion. There is no focal osseous or soft tissue abnormality. XR/XR chest 2V IMPRESSION: 1. Improving left upper lobe and bibasilar pneumonic opacities. No definite effusions. 2. COPD. 3. Mild cardiac enlargement with TAVR Electronically signed by: Tirso Garcia MD 01/09/2025 12:56 PM EDT
--- OUTSIDE RECORDS SUMMARY | 2025-01-09 04:45 | XMS_ITS ---
Author Organization Orestes Alex MD Address [address] [place] [phone] Care Team Providers Care Seismic Engineer Name Role Phone Orestes Alex Primary Care Provider REASON FOR VISIT 1 month repeat LFT's Encounters Encounter Location Date Provider Diagnosis Orestes Alex MD [address] [place] [phone] 01/09/2025 Orestes Alex Elevated LFTs R79.89 Assessments Encounter Date Diagnosis (ICD Code) Assessment Notes Treatment Notes Treatment Clinical Notes Section Notes 01/09/2025 Elevated LFTs (ICD-10 - R79.89) Plan Of Treatment Pending Test Test Name Order Date Liver Panel 01/09/2025 Next Appt Details Provider Name:Orestes javier, 01/20/2025 01:45:00 PM, [address], [address], [place], [place], [phone], Provider Name:Orestes javier, 06/26/2025 07:15:00 AM, [address], [address], [place], [phone], Provider Name:Orestes Linda ier, 07/03/2025 01:30:00 PM, [address], [address], [place], [phone], Progress Notes * Delia CAT WDOB:1935 (89 yo M)Acc No.[id number]:01/09/2025 Progress Note Patient: Delia HERRERA Provider: Nicolette Alex MD :1935 A ge:89 Y S ex:Male Date:01/09/2025 Address:[address] [place] [address], [facility] [place], [id number] Subjective: * Chief Complaints: * 1 . 1 month repeat LFT's. * Medical History: Objective: * Vitals: Assessment: * Assessment: 1. E levated LFTs - R79.89 Plan: * Treatment: * Procedure Codes: 3 6415 VENIPUNCT, ROUTINE* * * The named appointment provid er may or may not be the originator of this progress note, and it is not deemed complete until electronically signed by the appointment provider. Sign off status: Pending * Provider: Nicolette Alex MD Date: 01/09/2025 Generated for Morelia martell/Bernardino/Reynaitting on: 01/09/2025 12:18 PM EDT
--- OUTSIDE RECORDS SUMMARY | 2025-01-09 12:18 | XMS_ITS | Patient Health Record ---
Author Organization [facility] Address [address] [place] [phone] Care Team Providers Care Assembler Musical Equipment Name Role Phone Orestes Alex MD Primary Care Provider Mario Way Unavailable [phone] Allergies Allergen (clinical drug ingredient) Drug/Non Drug [...] Problem Status W/U Status Risk Notes Problem 60150144 Rectal bleeding (K62.5) Active confirmed Problem 17473258 Change in bowel function (R19.4) Active confirmed Problem Anemia (062267670) Anemia (D64.9) Active confirmed Problem 46109828 Constipation, unspecified constipation type (K59.00) Active confirmed Problem 533189481 Anemia, unspecified type (D64.9) Active confirmed Plan [...] Date MEDICARE OF [place] [address] [place] [address] [id number] DELIA CAT Self - patient is the insured [employer] ATT[employer] CLAIMS [address] [place] [address] [id number] DELIA CAT Self - patient is the insured Medical (General) History Medical History History ICD Code Colonoscopy 10-06-2007 and 97--negative except diverticulosis and internal hemorrhoids; 3 negative Hemoccult cards in 01/2016 Hyperlipidemia BPH Denies [place],CVA,Lung disease,renal disease NIDDM Hypothyroidism Colonoscopy 01/2019 several small tubular adenomas removed Surgical History Surgery Date(Month/Year) Thumb surgery 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
[2025-01-09 15:31] LABS: Alanine Aminotransferase 78 U/L (0-40); Albumin Level 3.4 g/dL (3.5-5.0); Alkaline Phosphatase 154 U/L (39-117); Aspartate Amino Transferase 87 U/L (5-37); Total Protein 6.6 g/dL (6.5-8.0)
== END 2025-01-09 12:15 | disposition home or self-care (01) ==
LOC: HO.XRAY 12:14
PROVIDERS: PCP Internal Medicine; Visit Provider Internal Medicine
DX: R79.89 Other specified abnormal findings of blood chemistry (principal); J18.9 Pneumonia, unspecified organism
CPT/HCPCS: 36415; 71046; 80076

== ENCOUNTER → 2025-01-09 12:20 | Outpatient (BNV) | payer MEDICARE, SELFPAY ==
[2024-12-23 15:15] VITALS: BP 122/60; BP 134/60; BMI 24.7
== END ==
PROVIDERS: PCP Internal Medicine; Visit Provider Radiology Diagnostic Radiology
DX: J44.9 Chronic obstructive pulmonary disease, unspecified (principal)
CPT/HCPCS: 71046

== ENCOUNTER 2025-01-22 09:30 | Outpatient (REF) | payer MEDICARE, SELFPAY ==
[2024-12-23 15:15] VITALS: BP 122/60; BP 134/60; BMI 24.7
--- NOTE | 2025-01-22 09:49 | PFT_ITS ---
Flows: FEV1: 68 % of predicted at 1.80 L FVC: 65 % of predicted at 2.36 L FEV1/FVC: 76 % Bronchodilator response: Absent Volumes: Total lung capacity: 79 % of predicted at 5.59 L Residual volume: 116 % of predicted at 3.25 L Slow vital capacity: 58 % of predicted at 2.34 L Expiratory reserve volume: 55 % of predicted at 0.68 L Diffusion capacity: Severely decreased, adjusts to being moderately decreased after correction for alveolar ventilation. Impression: Moderate restrictive ventilatory defect with no bronchodilator response. Decreased expiratory reserve volume suggests extrathoracic restriction likely secondary to abdominal obesity. Combination of restrictive ventilatory defect with decreased diffusion capacity suggests underlying pulmonary parenchymal disease. Clinical correlation is advised. MTDD
[2025-01-22 10:24] VITALS: PULSE 61; O2SAT 93
== END 2025-01-22 09:31 | disposition home or self-care (01) ==
LOC: HO.RESP 09:30
PROVIDERS: PCP Internal Medicine
DX: R06.02 Shortness of breath (principal)
CPT/HCPCS: 94010; 94640; 94727; 94729

== ENCOUNTER → 2025-01-22 09:49 | Outpatient (BNV) | payer MEDICARE, SELFPAY ==
[2024-12-23 15:15] VITALS: BP 122/60; BP 134/60; BMI 24.7
== END ==
PROVIDERS: PCP Internal Medicine; Visit Provider Internal Medicine Pulmonary Disease
DX: R06.00 Dyspnea, unspecified (principal)
CPT/HCPCS: 94060; 94727; 94729

== ENCOUNTER 2025-02-03 14:18 | Outpatient (AMB) | payer MEDICARE, SELFPAY ==
--- OUTSIDE RECORDS SUMMARY | 2024-09-01 09:00 | XMS_ITS ---
Author Organization [facility] Address [address] [place] [address] Care Team Providers Care Etcher Electrolytic Name Role Phone Orestes Alex MD Primary Care Provider Xenia Rojas [phone] Mark Encounters Encounter Location Date Provider Diagnosis [address] [address] 09/01/2024 Xeniajessi Hernández Plan Of Treatment Next Appt Details Provider Name:Xenia Hernández , 04/13/2025 03:30:00 PM, [address] [place] [address], [phone], Progress Notes * Richard CAT WDOB:1935 (89 yo M)Acc No.[id number]:09/01/2024 Progress Note Patient: Richard HERRERA Provider: Sherita Hernández DPM :1935 A ge:89 Y S ex:Male Date:09/01/2024 [address] [id number] Pcp:Orestes Alex MD Subjective: * Chief Complaints: [...] 09/01/2024 Generated for Morelia Ortega on: 0 02/03/2025 03:13 PM EDT
[2024-12-23 15:15] VITALS: BP 122/60; BP 134/60; BMI 24.7
--- OUTSIDE RECORDS SUMMARY | 2025-01-09 07:45 | XMS_ITS ---
Author Organization Orestes Alex MD Address [address] [place], [place] [phone] Care Team Providers Care Logistics Engineering Manager Name Role Phone Orestes Alex Primary [...] Problem Status W/U Status Risk Notes Problem CHF (congestive heart failure) (I50.9) Active confirmed Vital Signs Blood pressure systolic 122 mm Hg 01/10/20 25 Blood pressure diastolic 64 mm Hg 025 Height 67 in 01/09/2025 Weight 159 lbs 01/09/2025 BMI 24.9 kg/m2 01/09/2025 weight is up 5 pounds since Encounters Encounter Location Date Provider Diagnosis Orestes Alex MD [address] [place] [address] Drive [address] [place], [place] [phone] 01/09/2025 Orestes Alex Type 2 diabetes mellitus [...] 10 days, Reason: Provider Name:Orestes Linda ier, 02/10/2025 09:00:00 AM, [address] [place] [address], [address], [place], [place], [phone], Provider Name:Orestes P Maddi ier, 06/26/2025 07:15:00 AM, [address] [place] [address], Suite [facility], [place], [place], [phone], Provider Name:Orestes Linda ier, 07/03/2025 01:30:00 PM, [address] [place] [address], Suite [facility], [place], [place], [phone], Progress Notes * Delia CAT WDOB:1935 (89 yo M)Acc No.[id number]:01/09/2025 Patient: Delia HERRERA W Provider: Nicolette Alex MD :1935 A ge:89 Y S ex:Male Date:01/09/2025 Address:[address] [place] [address], [facility] [id number] Subjective: * Chief Complaints: * P H/TCM [...] BP:122/64, Wt-k.12. weight is up 5 pounds [id number]. * Examination: G eneral Examination: GENERAL APPEARANCE: [...] 0 01/09/2025 Generated for Morelia martell/Bernardino/Reynaitting on: 0 02/03/2025 03:14 PM EDT History and Physical Notes * [...]
--- OUTSIDE RECORDS SUMMARY | 2025-01-20 09:45 | XMS_ITS ---
Author Organization Orestes Alex MD Address [address] [place], [place] [phone] Care Team Providers Care Lockstitch Binder Name Role Phone Orestes Alex Primary Care Provider [phone] Allergies No Known Allergies Results Component Value [...] Location Date Provider Diagnosis Orestes Alex MD [address] [place] [address] [place] [phone] 01/20/2025 Orestes Alex Type 2 diabetes mellitus [...] Next Appt Details Provider Name:Orestes Linda ier, 02/10/2025 09:00:00 AM, [address] [place] [address] Drive, [address], [place], [phone], Provider Name:Orestes Linda ier, 06/26/2025 07:15:00 AM, [address] [facility] [address], [address], [place], [phone], Provider Name:Orestes Linda ier, 07/03/2025 01:30:00 PM, [address] [facility] [address], [address], [place], [place], [phone], Progress Notes * Delia CAT WDOB:1935 (89 yo M)Acc No.[id number]:01/20/2025 Progress Notes Patient: Delia HERRERA Provider: Nicolette Alex MD :1935 A ge:89 Y S ex:Male Date:01/20/2025 Address:[address] [place] [address], [facility], [id number] Subjective: * Chief Complaints: * 1 0 [...] MD Date: 0 01/20/2025 Generated for Morelia martell/Bernardino/Reynaitting on: 0 02/03/2025 [...]
--- OUTSIDE RECORDS SUMMARY | 2025-02-02 09:35 | XMS_ITS ---
Author Organization Orestes Alex MD Address [address] [place] [phone] Care Team Providers Care Policeman Name Role Phone Orestes Alex Primary Care Provider [phone] REASON FOR VISIT bilateral ankle edema x 1 day Encounters Encounter Location Date Provider Diagnosis Orestes Alex MD [address] [place] [address] [place] [phone] 02/02/2025 Orestes Alex Plan Of Treatment Next Appt Details Provider Name:Orestes javier, 02/10/2025 09:00:00 AM, [address] [place] [address], Suite [facility], [place], [place], [phone], Provider Name:Orestes javier, 06/26/2025 07:15:00 AM, [address] [place] [address], Suite [facility], [place], [place], [phone], Provider Name:Orestes javier, 07/03/2025 01:30:00 PM, [address], [address], [place], [place], [phone], Progress Notes * Delia CAT WDOB:1935 (89 yo M)Acc No.[id number]:02/02/2025 Patient: Delia HERRERA :1935 A ge:89 Y S ex:Male Address:[address] [place] [address], [place] [address] * true * Date: Generated for Morelia martell/Bernardino/eTransmitting on: 0 02/03/2025 03:14 PM EDT
--- NOTE | 2025-02-03 14:50 | MHC.OFFVIS ---
Vital Signs 02/03/25 14:51 Height 5 ft 10 in Weight 169 lb BMI 24.2 BP 142/88 H Blood Pressure Location Rt brachial Position Sitting Pulse 64 Pulse Source Pulse Oximeter Pulse Oximetry (%) 91 L Intake Visit Reasons: COPD/ SOB Director Digital Strategy Required: No Database Administration Associate: Database Administration Associate offered & declined Accompanied by: Spouse Allergies No Known Allergies (No Known Allergies*) Allergy (Verified 02/03/25 14:55) Medication List - Last Reconciled 02/03/25 by Pamela Gill LPN apixaban (Eliquis) 2.5 mg PO BID ascorbic acid (vitamin C) (Vitamin C) 1,000 mg PO DAILY atorvastatin 80 mg PO DAILY blood sugar diagnostic (FreeStyle Lite Strips) As directed carbamide peroxide 6.5% 5 drps otic (ears) TID cefuroxime axetil 500 mg PO BID cholecalciferol (vitamin D3) (Vitamin D3) 50 mcg PO BEDTIME coenzyme Q10 (CoQ-10) 100 mg PO DAILY diltiazem HCl ER (DILT-XR) 180 mg PO DAILY doxycycline hyclate 100 mg PO BID ferrous sulfate (FeroSul) 325 mg PO DAILY furosemide 40 mg PO DAILY glipizide 5 mg PO DAILY levothyroxine 125 mcg PO DAILY@0600 metformin 1,000 mg PO BID metoprolol succinate ER 25 mg PO BEDTIME omega 4-ycj-cul-fish oil 1,000 (120-180) mg (Fish Oil) 1 cap PO DAILY peg 400-propylene glycol 0.4-0.3 % 1 drp ophthalmic (eye) TID sitagliptin 50 mg PO DAILY tamsulosin 0.4 mg PO BEDTIME HPI HPI COPD/ SOB: Details: Richard is a pleasant 89 year old male, former smoker, with underlying h/o aortic stenosis s/p TAVR 2021, hypertension, diabetes, hyperlipidemia and hypothyroidism. Patient is a poor historian. Since last visit he was admitted to a [facility] in December for acute respiratory failure with hypoxia secondary to pneumonia. He was treated with IV antibiotics and supplemental oxygen, discharged on oral antibiotics which she has completed her reports overall feeling well. He was not discharged on any supplemental oxygen however did require use while inpatient. At the last visit he was started on Breo for probable COPD which he just started using today. He denies any cough, chest tightness or wheezing. He does report decreased overall endurance but no overt dyspnea. The patient has a history of atrial fibrillation and reports peripheral edema, for which he has been taking furosemide, which he recently increased dosage due to increased edema. Today he presents reviewed PFT results. [facility] Medical History Hypercalcemia TAYLOR (acute kidney injury) Acute hyperglycemia HTN (hypertension) Aortic stenosis Arthritis of right knee Calcific tendinitis of left shoulder Orthostasis (~2014) Diabetes mellitus (~2014) Knee effusion (~11/15/14) Hyperlipidemia (~2012) Hypothyroidism (~2012) Surgical History S/P TAVR (transcatheter aortic valve replacement) S/P wrist surgery History of cardiac cath Family History Father No problems noted. 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 Review of Systems Const Denies chills, Denies excessive sweating, Denies fever(s), Denies headache(s) and Denies night sweats Eyes Denies dry eyes, Denies irritation and Denies itchy eyes ENT Reports Normal hearing present, Denies headache(s), Denies nasal congestion, Denies nasal discharge, Denies post nasal drip and Denies sore throat Card Denies chest pain, Denies chest pain at rest, Denies chest pain with activity, Denies claudication, Denies orthopnea and Denies paroxysmal nocturnal dyspnea Resp Denies chest congestion, Denies excessive phlegm production, Denies pain on inspiration, Denies pain with cough, Denies stridor and Denies wheezing Musc Denies myalgias Neuro Reports Normal hearing present and Denies headache(s) Endo Denies excessive sweating Himanshu/Lymph Denies lymphadenopathy Aller/Immun Denies itchy eyes, Denies seasonal rhinorrhea and Denies wheezing Physical Exam Vital Signs: Last Vital Signs Pulse 64 02/03/25 14:51 BP 142/88 H 02/03/25 14:51 Pulse Ox 91 L 02/03/25 14:51 BMI result Body Mass Index 24.2 Const General: cooperative, comfortable, no acute distress and alert Orientation/consciousness: patient oriented x3 Limitations: no limitations HEENT Head: Yes normal to inspection, Yes normocephalic and Yes atraumatic Ears: hearing grossly normal bilaterally and external ears normal Eyes General: appearance normal, both eyes and all related structures Eyelids: Yes eyelids normal Sclerae: sclerae normal EOM: EOMs intact bilaterally Neck Neck: Yes normal visual inspection and Yes no lymphadenopathy Lymphatic: no lymphadenopathy noted Chest Chest palpation & inspection: normal inspection of the chest Resp Other: Inspiratory bibasilar coarse crackles Effort & Inspection: normal respiratory effort, able to speak in complete sentences, no audible wheezes, no cough, no stridor, not tachypneic, no tripod positioning and no use of accessory muscles Auscultation: clear to auscultation bilaterally Cardio Jugular venous distension: no JVD Rate: regular rate Rhythm: regular rhythm Skin Other: warm, dry General skin exam: no rashes or lesions noted Neuro General: patient oriented x3 Cranial nerves: Yes Normal hearing present Cognition (Neuro): normal cognition Gait exam (Neuro): Normal gait present Extrem Other: 2-3 +pitting edema bilateral lower extremities Psych Appearance: grossly normal and well kempt Speech and movement: Normal speech and movement present and Clear speech present Affect: normal affect Attitude: cooperative Thought process: Normal thought process present Thought content: Normal thought content present Insight: Good insight present (Psych) Judgement: Good judgement present (Psych) Office Procedures 6 Minute Walk Time:: 15:19 SPO2 % at rest: 91 Pulse at rest: 61 SPO2 % during excercise: 87 Pulse during excercise: 92 SPO2 % after excercise: 94 (With O2 @ 2lpm cont flow) Pulse after excercise: 69 Distance in yards walked: 200 Soniya Score: 8 Supplemental Oxygen: Patient ambulated on level ground with the assistance of a cane, ambulated slowly, after 2 minutes O2 sat deecreased to 87% stopped O2 applied @ 2lpm rest for 5 minutes resumed ambulation with O2 @ 2lpm O2 sats stable @ 94% Recommend O2 @ @ lpm with exertion. [id number] - 6 Minute Walk Results Reviewed Results Reviewed: [address] [address] [address] Scan Report Signed Patient: Richard Chávez MR#: [id number] : 1935 Acct:[id number] Age/Sex: 89 / M ADM Date: 12/24/24 Loc: HO.ED Attending Dr: Ordering Physician: Raul Chery MD Date of Service: 12/24/24 Procedure(s): CT chest wo IV con Accession Number(s): [id number] cc: Orestes Alex MD; Raul Chery MD~ Report Number: [id number]: Total DLP = 291.00 mGy-cm CLINICAL HISTORY: Left lung mass? CT chest without contrast Comparison: CR/SR - XR CHEST 1 VIEW - 12/24/24 15:46 EDT CR/IL/SR - XR CHEST 2V - 10/28/24 15:46 EDT Findings: The heart is enlarged. Abnormal lymph nodes are present within the prevascular and left hilar mediastinum. Moderate atherosclerotic disease of the coronary arteries. Aortic valve replacement noted. There is dense left upper lobe consolidation, somewhat masslike. Additional faint patchy bibasilar density. Airway thickening noted. There is mild paraseptal emphysema. No significant effusion. No pneumothorax. No acute osseous finding. The visualized upper abdomen demonstrates no definite acute process. Impression: Dense somewhat masslike consolidation within the left upper lobe with mediastinal adenopathy as detailed. Suspect this reflects advanced pneumonia, especially given that this was not present on the 10/28/2024 radiograph; however, malignancy is not entirely excluded and close interval follow-up would be recommended. This document has been electronically signed by: Jason James MD on 12/24/2024 21:26:50 Dictated By: Jason James MD Signed By: <Electronically signed by Jason James MD in OV> 12/24/242127 Assessment & Plan Assessment & Plan (1) Restrictive ventilatory defect: Code(s): R94.2 - Abnormal results of pulmonary function studies Category: Medical (2) SOB (shortness of breath): Code(s): R06.02 - Shortness of breath Category: Medical (3) History of recent pneumonia: Code(s): Z87.01 - Personal history of pneumonia (recurrent) Category: Medical Plan Reviewed PFT which revealed moderate restrictive ventilatory defect with no bronchodilator response. Decreased expiratory reserve volume suggests extrathoracic restriction likely secondary to abdominal obesity. Combination of restrictive ventilatory defect with decreased diffusion capacity suggests underlying pulmonary parenchymal disease. 6MWT performed and patient does require 2 L of supplemental oxygen with exertion, which he was in agreement with. Will also send for overnight oximetry to assess for nocturnal hypoxemia. Chest CT from ED admission revealed dense somewhat masslike consolidation within the left upper lobe with mediastinal adenopathy, suspect this reflects advanced pneumonia, especially given that this was not present on the 10/28/2024 radiograph; however, malignancy is not entirely excluded. Will repeat chest CT to assess for resolution. PCP did order recent CXR 01/09 which revealed resolving PNA. At this time he feels respiratory symptoms are well controlled and denies cough, chest congestion or fever. Encourage patient to continue to use Breo and will reassess at the next visit. He is aware to call if symptoms worsen/change. All questions were answered and patient is in agreement of plan. Will follow-up in 6-8 weeks or sooner if needed. Orders: Orders CT chest wo IV con 4 Weeks R91.8 - Other nonspecific abnormal finding of lung field, Z87.01 - Personal history of pneumonia (recurrent) Overnight Pulse Oximetry Today G47.34 - Idiopathic sleep related nonobstructive alveolar hypoventilation Coding Level of Care Code Est Pt Level 4 (81168) Diagnoses Restrictive ventilatory defect R94.2 SOB (shortness of breath) R06.02 History of recent pneumonia Z87.01 CPT Codes Coding ([id number])
[2025-02-03 14:51] VITALS: BP 142/88; PULSE 64; O2SAT 91; BMI 24.2
--- OUTSIDE RECORDS SUMMARY | 2025-02-03 15:14 | XMS_ITS | Patient Health Record ---
Author Organization [facility] Address [address] [place] [address] Care Team Providers Care Body Liner Name Role Phone Orestes Alex MD Primary Care Provider Yakelin Hernández, Xenia Unavailable [phone] Allergies Allergen (clinical drug ingredient) Drug/Non Drug Allergy documented on EMR Reaction Allergy Type Onset Date Status Bee Sting Swell up Allergy Active Results Component Value Reference Range Notes HEMOGLOBIN A1C (GLYCOHEMOGLO BIN) Reviewed date:12/04/2024 09:41:40 AM Interpretation: Performing Lab: Notes/Report: HEMOGLOBIN A1C % (HH) 6.7 Reason For Referral No Information Medications Medication SIG (Take, Route, Frequency, Duration) Notes Start Date End Date Status CoQ-10 200 MG 1 capsule with a lisa l Orally Once a day; Duration: 30 day(s) Active Vitamin D 2000 UNIT [...] ml one barbara e Injection Once a day; Duration: 1 day(s) Not-Taking Aspirin 81 MG 1 tablet Orally Once a day; Duration: 30 day(s) Not-Taking Fish Oil 1000 MG 1 capsule Orally Onc e a day; Duration: 30 day(s) Active Ciclopirox Olamine 0.77 % 1 application to affected area Externally Twice a day; Duration: 30 days 02/28/2018 Not-Taking metFORMIN HCl 500mg 1 tablet with meals Orally Twice a day; Duration: 30 day(s) Active Centrum Silver as directed Orally Not-Taking Atorvastatin Calcium 80mg 1 tablet Orall y Once a day; Duration: 30 day(s) Active Januvia 50 MG Orally Once a day Not-Taking SITagliptin Active Calcium 600mg as directed Orally Not-Taking Tetanus Immune Globulin 250 UNIT/ML as directed Intramuscular Not-Taking eliquis 5 mg Active zzzCompression Stockings 20-30mm Hg . . .; Duration: . Not-Takin g Colcrys 0.6 MG 1 tablet Orally Once a day; Duration: 10 days 02/26/2013 Not-Takin g Vitamin D3 50 MCG (1999 UT) 1 capsule Orally Once a day; Duration: 30 day(s) Active Valsartan 320 MG 1 tablet Orally Once a day Not-Taking Levothyroxine Sodium 125 MCG 1 tablet on an empty stomach in the morning Orally Once a day Active Immunizations Vaccine Route Administration Date Status Comme nts COVID-19 Pfizer BioNTech Vaccine Unknown 02/21/2021 Administered 1st 07/13/20 2nd Dose: 08/06/20 Influenza Unknown 02/26/2017 Administered Influenza Unknown 02/09/2018 Administered Influenza Unknown 02/10/2019 Administered Influenza Unknown 02/10/2020 Administered Influenza Unknown 03/07/2021 Administered Influenza Unknown 01/09/2022 Administered Influenza Unknown 01/09/2023 Administered Influenza Unknown 02/10/2024 Administered Social History Tobacco Use: Social History Observation Description Date Details (start date - stop date) Never Smoker NA - NA Alcohol Screen Question Answer Notes Did you have a drink containing alcohol in the p ast year? No Points 0 Interpretation Negative Tobacco use other than smoking: Question Answer Notes Are you an other tobacco user? No Tobacco Control (Standard) Question Answer Notes Tobacco use: Nonsmoker Problems Problem Type SNOMED Code ICD Code Onset Dates Problem Status W/U Status Risk Notes Problem Type 2 diabetes mellitus without complications (E11.9) Active confirmed Vital Signs Blood pressure diastolic 67 mm Hg 12/04/2024 Height 5 ft 10 in in 12/04/2024 Blood pressure systolic 155 mm Hg 12/04/2024 Weight 147 lbs 12/04/2024 BMI 21.09 kg/m2 12/04/2024 Procedures Procedure Date Ordered Date Performed Result Body Sit e 84316-DENUTRH NAIL, 6 OR MORE 02/14/2024 N/A 60323-KTFVELZ NAIL, 6 OR MORE 05/26/2024 N/A 08788-Lbhwlqqe Plate 05/26/2024 N/A 16618-Fcspyemp Plate Each Additional 05/26/2024 N/A 32311-JESZWKD NAIL, 6 OR MORE 12/04/2024 N/A Encounters Encounter Location Date Provider Diagnosis [address] [address] 02/14/2024 Xenia Black Tinea unguium B35.1 ; Type 2 diabetes mellitus without complications E11.9 ; Pain in right toe(s) M79.674 and Pain in left toe(s) M79.[address] [address] 05/26/2024 Xenia Black Tinea unguium B35.1 ; Ingrown nail L60.0 ; Type 2 diabetes mellitus without complications E11.9 ; Pain in right toe(s) M79.674 and Pain in left toe(s) M79.[address] [address] 12/04/2024 Xenia Black Tinea unguium B35.1 ; Type 2 diabetes mellitus without complications E11.9 ; Pain in right toe(s) M79.674 and Pain in left toe(s) M79.[address] [address] 02/14/2024 Xenia Black [address] [address] 12/04/2024 Xenia Black [address] [address] 01/26/2025 Xenia Black Assessments Encounter Date Diagnosis (ICD Code) Assessment Notes Treatment Notes Treatment Clinical Notes Section Notes 02/14/2024 Tinea unguium (ICD-10 - B35.1) 02/14/2024 Type 2 diabetes mellitus without complications (ICD-10 - E11.9) 05/26/2024 Tinea unguium (ICD-10 - B35.1) 05/26/2024 Ingrown nail (ICD-10 - L60.0) 12/04/2024 Tinea unguium (ICD-10 - B35.1) 12/04/2024 Type 2 diabetes mellitus without complications (ICD-10 - E11.9) 05/26/2024 Type 2 diabetes mellitus without complications (ICD-10 - E11.9) 12/04/2024 Pain in right toe(s) (ICD-10 - M79.674) 02/14/2024 Pain in right toe(s) (ICD-10 - M79.674) 02/14/2024 Pain in left toe(s) (ICD-10 - M79.675) 05/26/2024 Pain in right toe(s) (ICD-10 - M79.674) 12/04/2024 Pain in left toe(s) (ICD-10 - M79.675) 05/26/2024 Pain in left toe(s) (ICD-10 - M79.675) Plan Of Treatment Pending Test Test Name Order Date *Uric Acid, Serum 02/26/2013 *Sedimentation Rate-Westergren 3 X ray : Foot, right 3V 02/26/2013 07175-GGCZLGH NAIL, 6 OR MORE 04/30/2017 42892-CXGFGLU NAIL, 6 OR MORE 06/18/2017 30868-SWRGRKR NAIL, 6 OR MORE 02/28/2018 66481-CLKCVAO NAIL, 6 OR MORE 05/27/2018 62915-TAQTHAH NAIL, 6 OR MORE 08/26/2018 08810-PZMRYBL NAIL, 6 OR MORE 11/14/2018 61228-JAACBLL NAIL, 6 OR MORE 02/13/2019 55985-YDXPQEW NAIL, 6 OR MORE 05/19/2019 71763-MVJVJHT NAIL, 6 OR MORE 10/16/2019 55031-GQIOMOL NAIL, 6 OR MORE 01/22/2020 52001-ESAAYEN NAIL, 6 OR MORE 04/26/2020 14489-YLWKJOC NAIL, 6 OR MORE 08/02/2020 17547-MXMKDPW NAIL, 6 OR MORE 10/28/2020 13479-TKISSYN NAIL, 6 OR MORE 01/27/2021 03712-VPCMWOS NAIL, 6 OR MORE 05/09/2021 09272-ZRIUHYB NAIL, 6 OR MORE 08/25/2021 67028-KTKVBXX NAIL, 6 OR MORE 03/09/2022 20052-HMCTVMD NAIL, 6 OR MORE 06/22/2022 16558-EZGQUNT NAIL, 6 OR MORE 10/23/2022 56841-RCLZRBY NAIL, 6 OR MORE 11/28/2021 91579-TQBOUPJ NAIL, 6 OR MORE 02/22/2023 53005-LJQEGRX NAIL, 6 OR MORE 07/19/2023 42577-TNGPTYA NAIL, 6 OR MORE 10/25/2023 72500-QVLYFVY NAIL, 6 OR MORE 02/14/2024 76872-TAHRBWD NAIL, 6 OR MORE 05/26/2024 11559-CPIYBCT NAIL, 6 OR MORE 12/04/2024 47930-Joxexeeh Plate 05/26/2024 56797-Lajwjbcs Plate 10/25/2023 51361-Czrtdbgr Plate 07/19/2023 13037-Tnretpar Plate 02/22/2023 15940-Nbpnhooj Plate 11/28/2021 11972-Xxvoqzdp Plate 08/25/2021 37365-Jikdpfox Plate 10/28/2020 83086-Rkqfgaqf Plate Each Additional 42928 I&D ABSCESS- SIMPLE,SINGLE 022 33731 I&D ABSCESS- SIMPLE,SINGLE 021 07042 I&D ABSCESS- SIMPLE,SINGLE 021 06522-Nikw. Subungual Hematoma 9 Nail Panel 04/30/2017 Next Appt Details Provider Name:Xenia Hernández , 04/13/2025 03:30:00 PM, [address] [facility], [place], [address], Insurance Providers Payer Name Payer Address Payer Phone Subscriber Number Group Number Insured Name Patient Relationship to Insured Coverage Start Date Coverage End Date Medicare National Govt Man [facility] [address] [place] [address] [phone] [id number] Richard Chávez Self - patient is the insured 1 [employer] [facility] [address] [place] [address] [id number] Richard Chávez Self - patient is the insured Medical (General) History Medical History History ICD Code thyroid disorder chicken pox measles mumps joint implants/screws Warts Back,Hip,and Knee pain Cataracts Diabetic Gout Other hammer toe(s) (acquired), left jae t M20.42 Other hammer toe(s) (acquired), right fo ot M20.41 Surgical History Surgery Date(Month/Year) finger surgery 2009 Thumb Surgery 2012 nose L side 2016 biopsy on face spot 10/25/20 aortic valve replacement 01/2022
--- OUTSIDE RECORDS SUMMARY | 2025-02-03 15:14 | XMS_ITS | Patient Health Record ---
Author Organization [facility] Address [address] [place] [address] Care Team Providers Care Peoplesoft Taleo Manager Name Role Phone Orestes Alex MD Primary Care Provider Mario Way Unavailable [phone] Allergies Allergen (clinical drug ingredient) Drug/Non Drug [...] Problem Status W/U Status Risk Notes Problem 90405138 Rectal bleeding (K62.5) Active confirmed Problem 46769908 Change in bowel function (R19.4) Active confirmed Problem Anemia (884972920) Anemia (D64.9) Active confirmed Problem 95698519 Constipation, unspecified constipation type (K59.00) Active confirmed Problem 207261568 Anemia, unspecified type (D64.9) Active confirmed Plan [...] Date MEDICARE OF [place] [address] [facility] [place] [address] [id number] DELIA CAT Self - patient is the insured [employer] CLAIMS [address] [place] [address] [id number] DELIA CAT Self - patient is the insured Medical (General) History Medical History History ICD Code Colonoscopy 10-06-2007 and 97--negative except diverticulosis and internal hemorrhoids; 3 negative Hemoccult cards in 01/2016 Hyperlipidemia BPH Denies CO,CVA,Lung disease,renal disease NIDDM Hypothyroidism Colonoscopy 01/2019 several small tubular adenomas removed Surgical History Surgery Date(Month/Year) Thumb surgery 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
--- OUTSIDE RECORDS SUMMARY | 2025-02-03 15:15 | XMS_ITS | Patient Health Record ---
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 Name Role Phone Orestes Alex Primary Care Provider Allergies No Known Allergies Results Component Value Reference Range Notes Hemoglobin A1c Reviewed date:12/04/2024 01:29:14 PM Interpretation: Performing Lab: Notes/Report: Hemoglobin A1c 7.5 Complete Blood Count Auto Di ff Reviewed date:06/20/2024 05:40:23 PM Interpretation: Performing Lab:[facility], [address] [place] [phone] Notes/Report: White Blood Count 7.8 4.8-10.8 X10*3/uL [...] 0.0-0.2 /100WBC Neutrophils Absolute Auto 3.6 2.0-8.3 x10*3/uL Imm Gran Abs Auto 0.02 0.00-0.03 X10*3/uL Lymphocytes Absolute Auto 3.2 1.2-4.9 X10*3/uL Monocytes Absolute Auto 0.8 0.1-1.2 X10*3/uL Eosinophils Absolute Auto 0.2 0.0-0.4 X10*3/uL Basophils Absolute Auto 0.0 0.0-0.2 X10*3/uL NRBC Abs Auto 0.000 0.0-0.012 X10*3/uL Comprehensive [place]. Panel Fa st Reviewed date:06/27/2024 01:10:00 PM Interpretation:ZELAL[place] 06/27/24 Performing Lab:[facility], [address] [place] [phone] Notes/Report: Sodium 142 135-145 mmol/L Potassium 4.3 [...] Panel Reviewed date:06/20/2024 05:16:22 PM Interpretation: Performing Lab:[address] [phone] Notes/Report: Triglycerides 117 <150 mg/dL Desirable Triglyceride: [...] (Free>4and<10) Reviewed date:06/20/2024 05:11:58 PM Interpretation: Performing Lab:[address] [address] Notes/Report: PSA,Total (Free>4and<10) 0.38 0.00-4.00 ng/mL A [...] Random Reviewed date:06/20/2024 05:11:49 PM Interpretation: Performing Lab:[address] [address] Notes/Report: Creatinine Urine 93.86 Microalbumin Urine 107.0 Microalbum/Creatinine Ratio Ur 113.9 <30 ug/mg cr Albumin/Creatinine Ratio Reference Ranges: Normal: < 30 ug/mg creatinine Microalbuminuria: 30 - 300 ug/mg creatinine Clinical Albuminuria: > 300 ug/mg creatinine Hemoglobin A1c Reviewed date:06/20/2024 05:12:06 PM Interpretation: Performing Lab:[address] [phone] Notes/Report: Hemoglobin A1c % 7.3 <6.0 % [...] average glucose, using the formula of the V9H-Oqyktbm Average Glucose study (ADAG), Diabetes Care, Vol.31,#8, Jan. 2007 UA ClnCatch+Micro w/rflx Cul t Reviewed date:06/20/2024 05:38:57 PM Interpretation: Performing Lab:[address] [address] Notes/Report: Urine, Clean Catch Color Urine Yellow Appearance Urine Clear PH 5.5 5.0-9.0 Glucose Urine UA Negative Negative mg/dL Urine Blood Negative Negative Specific [place] - Urine 1.020 1.005-1.025 Urine Protein Trace Neg-Trace mg/dL Urine Ketones Negative Negative mg/dL Nitrite Urine Negative Negative Leukocyte Esterase Urine Negative Negative RBC Urine 0-2 0-2 /HPF WBC Urine 0-5 0-5 /HPF Squamous Epithelial Cell Urine 0-2 0-2 /HPF Bacteria Urine None Seen None Seen Hyaline Casts Urine 0-2 0-2 /LPF Liver Panel Reviewed date:12/01/2024 05:23:44 PM Interpretation: Performing Lab:[address], [place] [address] Notes/Report: Bilirubin Total 0.9 0.0-1.0 mg/dL Bilirubin Direct 0.4 0.0-0.5 mg/dL Aspartate Amino Transferase 41 5-37 U/L Alanine Aminotransferase 23 0-40 U/L Total Protein 7.3 6.5-8.0 g/dL Albumin Level 3.9 3.5-5.0 g/dL Alkaline Phosphatase 195 39-117 U/L Lipid Panel with Reflex Reviewed date:12/02/2024 08:16:58 AM Interpretation: Performing Lab:[facility], [address] [place] [phone] Notes/Report: Triglycerides 127 <150 mg/dL Desirable Triglyceride: [...] low results in patients with liver disease. Liver Panel (Not yet reviewe d by provider) Interpretation:02-10-2025 Performing Lab:[facility], [address] [place] [phone] Notes/Report: Bilirubin Total 0.7 0.0-1.0 mg/dL Bilirubin Direct 0.4 0.0-0.5 mg/dL Aspartate Amino Transferase 87 5-37 U/L Alanine Aminotransferase 78 0-40 U/L Total Protein 6.6 6.5-8.0 g/dL Albumin Level 3.4 3.5-5.0 g/dL Alkaline Phosphatase 154 39-117 U/L Glucose, finger stick Reviewed date:03/17/2024 10:25:21 AM Interpretation: Performing Lab: Notes/Report: Value 181 Glucose, finger stick Reviewed date:08/25/2024 01:00:35 PM Interpretation: Performing Lab: Notes/Report: Value 128 Glucose, finger stick Reviewed date:12/04/2024 01:06:36 PM Interpretation: Performing Lab: Notes/Report: Value 241 Glucose, finger stick Reviewed date:01/09/2025 11:50:54 AM Interpretation: Performing Lab: Notes/Report: Value 149 Glucose, finger stick Reviewed date:01/20/2025 01:54:11 PM Interpretation: Performing Lab: Notes/Report: Value 120 XR chest 2V Reviewed date:10/29/2024 03:54:47 PM Interpretation: Performing Lab: Notes/Report: [address] [address] XRay Report Signed Patient: Delia Chávez MR#: [id number] : 1935 Acct:[id number] Age/Sex: 89 / M ADM Date: 10/28/24 Loc: DYLAN Attending Dr: Cm Rivas NP Ordering Physician: Cm Rivas NP Date of Service: 10/28/24 Procedure(s): XR chest 2V Accession Number(s): [id number] cc: Orestes Alex MD; Cm Rivas NP [...] Garcia MD in OV> 10/28/24 1550 DD/ 153 TD/TT: 10/28/24 154 Web Architect: [address] [place] [address] XRay Report Signed Patient: Delia Chávez MR#: [id number] : 1935 Acct:[id number] Age/Sex: 89 / M ADM Date: 10/28/24 Loc: HO.XRAY Attending Dr: Cm Rivas NP Ordering Physician: Cm Rivas NP Date of Service: 10/28/24 Procedure(s): XR le[address] [facility] 2V Accession Number(s): [id number] cc: Orestes Alex MD; Cm Rivas NP [...] OV> 10/28/24 1550 DD/ 1536 TD/TT: 10/28/24 154 Web Architect: Aubree Marie date:12/01/2024 12:26:31 PM Interpretation: Performing Lab:[facility], [address] [place] [phone] Notes/Report: Hold Gold See Note Specimen held untested for 24 hours; Call to request Chemistry testing. Complete Blood Count Auto Di ff Reviewed date:12/24/2024 03:54:40 PM Interpretation: Performing Lab:[facility], [address] [place] [phone] Notes/Report: White Blood Count 13.8 4.8-10.8 X10*3/uL Red Blood Count 3.77 4.60-5.80 X10*6/uL Hemoglobin 12.3 14.0-18.0 g/dl Hematocrit 35.7 42.0-52.0 % Mean Corpuscular Volume 94.7 80.0-98.0 fL Mean Corpuscular Hemoglobin 32.6 27.0-33.0 pg Mean Corpuscular HGB Conc 34.5 31.0-36.0 g/dl Red Cell Distribution Width 15.1 11.0-16.0 % Platelet Count 242 160-400 X10*3/uL Mean Platelet Volume 9.2 9.4-12.4 fL Neutrophils Percent Auto 73.2 45-73 % Imm Gran Pct Auto 1.2 0.0-0.4 % Lymphocytes Percent Auto 19.2 20-40 % Monocytes Percent Auto 6.0 2-11 % Eosinophils Percent Auto 0.2 0-4 % Basophils Percent Auto 0.2 0-2 % NRBC Pct Auto 0.0 0.0-0.2 /100WBC Neutrophils Absolute Auto 10.1 2.0-8.3 x10*3/uL Imm Gran Abs Auto 0.17 0.00-0.03 X10*3/uL Lymphocytes Absolute Auto 2.7 1.2-4.9 X10*3/uL Monocytes Absolute Auto 0.8 0.1-1.2 X10*3/uL Eosinophils Absolute Auto 0.0 0.0-0.4 X10*3/uL Basophils Absolute Auto 0.0 0.0-0.2 X10*3/uL NRBC Abs Auto 0.000 0.0-0.012 X10*3/uL Prothrombin Time INR Reviewed date:12/25/2024 12:13:33 PM Interpretation: Performing Lab:[facility], [address] [place] [phone] Notes/Report: Prothrombin Time 16.4 10.9-12.4 SEC INTERNATIONAL NORM RATIO 1.4 0.9-1.1 INTERNATIONAL NORMALIZED RATIO (INR) REFERENCE RANGES Reference Range For patients not on anticoagulant therapy: 0.9 - 1.1 INR ranges for oral anticoagulant therapy: For prevention and treatment of venous thrombosis and pulmonary embolism: 2.0 - 3.0 For acute myocardial infarction with aspirin therapy: 2.0 - 3.0 For acute myocardial infarction without aspirin therapy: 3.0 - 4.0 For patients with mechanical prosthetic heart valves: 2.5 - 3.5 Partial Thromboplastin Time Reviewed date:12/25/2024 12:56:06 PM Interpretation: Performing Lab:[facility], [address] [place] [phone] Notes/Report: Partial Thromboplastin Time 37.1 26.0-36.8 SEC For information regarding the monitoring of direct thrombin inhibitors, please refer to Pharmacy. Comprehensive Met. Panel Reviewed date:12/24/2024 04:05:16 PM Interpretation: Performing Lab:[facility], [address] [place] [phone] Notes/Report: Sodium 132 135-145 mmol/L Potassium 4.2 3.3-5.1 mmol/L Chloride 96 96-108 mmol/L Carbon Dioxide 26 22-29 mmol/L Anion Gap 14 12-20 Blood Urea Nitrogen 35 9-16 mg/dL Creatinine 1.47 0.5-1.4 mg/dL Creatinine Clr Calc Pharmacy 32.6 eGFR (calculated from the MDRD study equation) and eCrCl (calculated from the Cockcroft-Gault equation) are based on different parameters and may not yield comparable results. If eCrCl result is absurd, please check patient's height/weight. Estimated Glomerular Filt Rate 45 Chronic Kidney Disease: Estimated GFR < 60 mL/min/1.73m2 Severe Kidney Disease: Estimated GFR < 15 mL/min/1.73m2 Glucose Random 263 60-115 mg/dL Calcium 9.8 8.4-10.2 mg/dL Bilirubin Total 0.9 0.0-1.0 mg/dL Aspartate Amino Transferase 54 5-37 U/L Alanine Aminotransferase 35 0-40 U/L Total Protein 6.6 6.5-8.0 g/dL Albumin Level 3.3 3.5-5.0 g/dL Alkaline Phosphatase 189 39-117 U/L Lactic Acid Reviewed date:12/25/2024 12:13:13 PM Interpretation: Performing Lab:[facility], [address] [place] [phone] Notes/Report: Lactic Acid 3.1 0.5-2.0 mmol/L Critical value for test(s): LACTA Results called to and read back by: SHUN Person calling: HOWIEFAWN Date: 12.24.24 Time: 1919 Magnesium Reviewed date:12/24/2024 03:54:51 PM Interpretation: Performing Lab:[facility], [address] [place] [phone] Notes/Report: Magnesium 1.6 1.6-2.6 mg/dL Troponin-I High Sensitivity Reviewed date:12/24/2024 04:02:15 PM Interpretation: Performing Lab:[facility], [address] [place] [phone] Notes/Report: Troponin-I High Sensitivity 78.5 <3.5-35.0 ng/L The [place] high sensitivity Troponin-I results should be used in conjunction with other diagnostic information such as ECG, clinical observations and information, and patient symptoms to aid in the diagnosis of SD. B Type Natriuretic Peptide Reviewed date:12/24/2024 04:01:59 PM Interpretation: Performing Lab:[facility], [address] [place] [phone] Notes/Report: B Type Natriuretic Peptide 227 <100 pg/mL SARS-CoV2/FLU/RSV Reviewed date:12/25/2024 12:13:46 PM Interpretation: Performing Lab:[facility], [address] [place] [phone] Notes/Report: Influenza A PCR NEGATIVE Negative Influenza B PCR NEGATIVE Negative Resp Syncy Virus RNA Qual PCR NEGATIVE Negative SARS COV2 PCR INHOUSE NEGATIVE Negative All test results must be correlated with clinical findings. Negative results do not preclude SARS-CoV2, influenza A virus, influenza B virus and/or RSV infection and should not be used as the sole basis for treatment or other patient management decisions. Negative results must be combined with clinical observations, patient history, and epidemiological information. This test has not been evaluated for monitoring treatment of infection. This test has been authorized by the FDA under an Emergency Use Authorization (EUA) for use by authorized laboratories. Testing performed on the [employer] GeneXpert utilizing real-time RT-PCR. All SARS CoV2 and positive influenza A/B results are reported to [facility]. Blood Culture (First) Reviewed date:12/30/2024 12:35:51 PM Interpretation: Performing Lab:[address] [phone] Notes/Report: Blood Culture (First) No growth after 5 days. Blood Culture (Second) Reviewed date:12/30/2024 12:38:40 PM Interpretation: Performing Lab:[address] [address] Notes/Report: Blood Culture (Second) No growth after 5 days. Lactic Acid-LAB USE ONLY Reviewed date:12/25/2024 12:11:17 PM Interpretation: Performing Lab:[address] [phone] Notes/Report: Lactic Acid-LAB USE ONLY 2.2 0.5-2.0 mmol/L Critical value for test(s): LACTA Results called to and read back by: OMARWYen Person calling: ANA Date: 12.24.24 Time: 2246 Venous Blood Gases - POC Reviewed date:12/24/2024 03:41:59 PM Interpretation: Performing Lab:[address] [address] Notes/Report: VBG pH 7.36 7.32-7.43 METER #: [id number] additional_comment: Dank goldenr VBG pCO2 46 METER #: [id number] additional_comment: Cb rojascr VBG pO2 34 METER #: [id number] additional_comment: Dank rizzoscr VBG Base Excess 1.2 METER #: [id number] additional_comment: Dank rizzoscr VBG HCO3 26 22-26 mmol/L METER #: [id number] additional_comment: Dank rizzoscr VBG O2 % Saturation 41.0 METER #: [id number] additional_comment: Dank zimmerman D Dimer High Sensitivity Reviewed date:12/25/2024 12:13:21 PM Interpretation: Performing Lab:[facility], [address] [place] [phone] Notes/Report: D Dimer High Sensitivity 469 D-DIMER HS REFERENCE RANGE Note: Our assay reports D-Dimer Units (D-DU). The cut-off value for venous thromboembolic (VTE) disease is 230 ng/mL. This value has a very high negative predictive value when the patient has a low to moderate clinical probability of VTE. The upper limit of normal is 243 ng/mL. CT chest wo con Reviewed date:12/25/2024 12:14:35 PM Interpretation: Performing Lab: Notes/Report: [address] [address] [address] Scan Report Signed Patient: Delia Chávez MR#: [id number] : 1935 Acct:[id number] Age/Sex: 89 / M ADM Date: 12/24/24 Loc: HO.ED Attending Dr: Ordering Physician: Raul Chery MD Date of Service: 12/24/24 Procedure(s): CT chest wo IV con Accession Number(s): [id number] cc: Orestes Alex MD; Raul Chery MD Report Number: [id number]: Total DLP = 291.00 mGy-cm CLINICAL HISTORY: Left lung mass? CT chest without contrast Comparison: CR/SR - XR CHEST 1 VIEW - 12/24/24 15:46 EDT CR/WI/SR - XR CHEST 2V - 10/28/24 15:46 EDT Findings: The heart is enlarged. Abnormal lymph nodes are present within the prevascular and left hilar mediastinum. Moderate atherosclerotic disease of the coronary arteries. Aortic valve replacement noted. There is dense left upper lobe consolidation, somewhat masslike. Additional faint patchy bibasilar density. Airway thickening noted. There is mild paraseptal emphysema. No significant effusion. No pneumothorax. No acute osseous finding. The visualized upper abdomen demonstrates no definite acute process. Impression: Dense somewhat masslike consolidation within the left upper lobe with mediastinal adenopathy as detailed. Suspect this reflects advanced pneumonia, especially given that this was not present on the 10/28/2024 radiograph; however, malignancy is not entirely excluded and close interval follow-up would be recommended. This document has been electronically signed by: Jason James MD on 12/24/2024 21:26:50 Dictated By: Jason James MD Signed By: <Electronically signed by Jason James MD in OV> 12/24/242127 DD/ 25 TD/TT: 12/24/242125 Web Architect: [place] [address] CT Scan Report Signed Patient: Delia Chávez MR#: [id number] : 1935 Acct:[id number] Age/Sex: 89 / M ADM Date: 12/24/24 Loc: HO.ED Attending Dr: Ordering Physician: Raul Chery MD Date of Service: 12/24/24 Procedure(s): CT [facility] wo IV con Accession Number(s): [id number] cc: Orestes Alex MD; Raul Chery MD Report Number: [id number]: Total DLP = 291.00 mGy-cm CLINICAL HISTORY: Le ft lung mass? CT chest without contrast Comparison: CR/SR - XR CHEST 1 VIEW - 12/24/24 15:46 EDT CR/WI/SR - XR CHEST 2V - 10/28/24 15:46 EDT Findings: The heart is enlarge d. Abnormal lymph nodes are present within the prevascular and left hilar mediastinum. Moderate atherosclerotic disease of the coronary arteries. Aortic valve replacement noted. There is dense left upper lobe consolidation, somewhat masslike. Additional faint pat gerry bibasilar density. Airway thickening noted. There is mild paraseptal emphysema. No significant effusion. No pneumothorax. No acute osseous finding. The visualized upper abdomen demonstrates no definite acute process. Impression: Dense somewhat massl faraz consolidation within the left upper lobe with mediastinal adenopat hy as detailed. Suspect this reflect s advanced pneumonia, especially given that this was not present on the 10/28/2024 radiograph; however, malignancy is not entirely excluded an d close interval follow-up would be recommended. This document has be en electronically signed by: Jason James MD on 12/24/2024 21:26:50 Dictated By: Jason James MD Signed By: <Electronically signed by Jason James MD in OV> 12/24/242127 DD/ 25 TD/TT: 12/24/242125 Web Architect: XR chest 1V Reviewed date:12/24/2024 04:10:13 PM Interpretation: Performing Lab: Notes/Report: [address] [address] XRay Report Signed Patient: Delia Chávez MR#: [id number] : 1935 Acct:[id number] Age/Sex: 89 / M ADM Date: 12/24/24 Loc: HO.ED Attending Dr: Ordering Physician: Generic ED Physician Date of Service: 12/24/24 Procedure(s): XR chest 1V Accession Number(s): [id number] cc: Orestes Alex MD; Generic ED Physician EXAMINATION: XR CHEST CLINICAL INFORMATION: SOB COMPARISON: October 28, 2024 TECHNIQUE: Frontal view of the chest was obtained. FINDINGS: There is a new central airspace opacity in the left upper lung zone extending fully to the apex. Chronic coarse lung markings are again noted. XR/XR chest 1V IMPRESSION: New focal opacity in left upper lung zone probably represents acute lobar pneumonia. Pulmonary hemorrhage is in the differential. A large mass is unlikely since this area was clear 2 months earlier. Electronically signed by: Alireza Rose MD 12/24/2024 03:50 PM EDT Dictated By: Alireza Rose MD Signed By: <Electronically signed by Alireza Rose MD in OV> 12/24/24 1550 DD/ 1446 TD/TT: 12/24/24 1544 Web Architect: [address] [address] XRay Report Signed Patient: Delia Chávez MR#: [id number] : 1935 Acct:[id number] Age/Sex: 89 / M ADM Date: 12/24/24 Loc: HO.ED Attending Dr: Ordering Physician: Generic ED Physician Date of Service: 12/24/24 Procedure(s): XR le[address] [facility] 1V Accession Number(s): [id number] cc: Orestes Alex MD; Generic ED Physician EXAMINATION: XR CHEST CLINICAL INFORMATION: SOB COMPARISON: October 28, 2024 TECHNIQUE: Frontal view of the chest was obtained. FINDINGS: There is a new centr al airspace opacity in the left upper lung zone extending fully to t he apex. Chronic coarse lung markings are again noted. XR/XR chest 1V IMPRESSION: New focal opacity in left upper lung zone probably represents acute lobar pneumonia. Pulmonary hemorrhage is in the differential. A large mass is unlikely sin ce this area was clear 2 months earlier. Electronically alex d by: Alireza Rose MD 12/24/2024 03:50 PM EDT RP Dictated By: Alireza Rose MD Signed By: <Electronically signed by Alireza Rose MD in OV> 12/24/24 1550 DD/ 1446 TD/TT: 12/24/24 1544 Web Architect: Complete Blood Count Auto Di ff Reviewed date:12/25/2024 05:07:41 PM Interpretation: Performing Lab:[facility], [address] [place] [phone] Notes/Report: White Blood Count 13.0 4.8-10.8 X10*3/uL Red Blood Count 3.72 4.60-5.80 X10*6/uL Hemoglobin 11.9 14.0-18.0 g/dl Hematocrit 35.5 42.0-52.0 % Mean Corpuscular Volume 95.4 80.0-98.0 fL Mean Corpuscular Hemoglobin 32.0 27.0-33.0 pg Mean Corpuscular HGB Conc 33.5 31.0-36.0 g/dl Red Cell Distribution Width 15.0 11.0-16.0 % Platelet Count 241 160-400 X10*3/uL Mean Platelet Volume 9.7 9.4-12.4 fL Neutrophils Percent Auto 68.7 45-73 % Imm Gran Pct Auto 0.9 0.0-0.4 % Lymphocytes Percent Auto 22.2 20-40 % Monocytes Percent Auto 7.1 2-11 % Eosinophils Percent Auto 0.6 0-4 % Basophils Percent Auto 0.5 0-2 % NRBC Pct Auto 0.0 0.0-0.2 /100WBC Neutrophils Absolute Auto 9.0 2.0-8.3 x10*3/uL Imm Gran Abs Auto 0.12 0.00-0.03 X10*3/uL Lymphocytes Absolute Auto 2.9 1.2-4.9 X10*3/uL Monocytes Absolute Auto 0.9 0.1-1.2 X10*3/uL Eosinophils Absolute Auto 0.1 0.0-0.4 X10*3/uL Basophils Absolute Auto 0.1 0.0-0.2 X10*3/uL NRBC Abs Auto 0.000 0.0-0.012 X10*3/uL Basic Metabolic Panel Reviewed date:12/25/2024 12:53:03 PM Interpretation: Performing Lab:[address] [address] Notes/Report: Sodium 135 135-145 mmol/L Potassium 3.8 3.3-5.1 mmol/L Chloride 100 96-108 mmol/L Carbon Dioxide 24 22-29 mmol/L Anion Gap 15 12-20 Blood Urea Nitrogen 32 9-16 mg/dL Creatinine 1.05 0.5-1.4 mg/dL Creatinine Clr Calc Pharmacy 45.6 eGFR (calculated from the MDRD study equation) and eCrCl (calculated from the Cockcroft-Gault equation) are based on different parameters and may not yield comparable results. If eCrCl result is absurd, please check patient's height/weight. Estimated Glomerular Filt Rate > 60 Chronic Kidney Disease: Estimated GFR < 60 mL/min/1.73m2 Severe Kidney Disease: Estimated GFR < 15 mL/min/1.73m2 Glucose Random 234 60-115 mg/dL Calcium 8.6 8.4-10.2 mg/dL Troponin-I High Sensitivity Reviewed date:12/25/2024 05:06:12 PM Interpretation: Performing Lab:[address] [address] Notes/Report: Troponin-I High Sensitivity 43.7 <3.5-35.0 ng/L The Joseph high sensitivity Troponin-I results should be used in conjunction with other diagnostic information such as ECG, clinical observations and information, and patient symptoms to aid in the diagnosis of SD. Glucose, Whole Blood Reviewed date:12/25/2024 12:10:35 PM Interpretation: Performing Lab:[facility], [address] [place] [phone] Notes/Report: Glucose, Whole Blood 201 60-115 mg/dL METER # : [id number] Lactic Acid-LAB USE ONLY Reviewed date:12/25/2024 12:10:52 PM Interpretation: Performing Lab:[facility], [address] [place] [phone] Notes/Report: Lactic Acid-LAB USE ONLY 3.8 0.5-2.0 mmol/L Critical LACTIC ACID sent by a secure message and confirmed by KARLOS/GUILHERME 12/25/24 0131 Tech:VERA Glucose, Whole Blood Reviewed date:12/25/2024 05:04:54 PM Interpretation: Performing Lab:[facility], [address] [place] [phone] Notes/Report: Glucose, Whole Blood 189 60-115 mg/dL METER # : [id number] Glucose, Whole Blood Reviewed date:12/25/2024 05:05:38 PM Interpretation: Performing Lab:[facility], [address] [place] [phone] Notes/Report: Glucose, Whole Blood 161 60-115 mg/dL METER # : [id number] Glucose, Whole Blood Reviewed date:12/26/2024 04:12:43 PM Interpretation: Performing Lab:[facility], [address] [place] [phone] Notes/Report: Glucose, Whole Blood 167 60-115 mg/dL METER # : [id number] Complete Blood Count Auto Di ff Reviewed date:12/26/2024 03:08:03 PM Interpretation: Performing Lab:[facility], [address] [place] [phone] Notes/Report: White Blood Count 10.9 4.8-10.8 X10*3/uL Red Blood Count 3.75 4.60-5.80 X10*6/uL Hemoglobin 12.1 14.0-18.0 g/dl Hematocrit 35.7 42.0-52.0 % Mean Corpuscular Volume 95.2 80.0-98.0 fL Mean Corpuscular Hemoglobin 32.3 27.0-33.0 pg Mean Corpuscular HGB Conc 33.9 31.0-36.0 g/dl Red Cell Distribution Width 15.0 11.0-16.0 % Platelet Count 231 160-400 X10*3/uL Mean Platelet Volume 9.4 9.4-12.4 fL Neutrophils Percent Auto 64.2 45-73 % Imm Gran Pct Auto 1.1 0.0-0.4 % Lymphocytes Percent Auto 25.4 20-40 % Monocytes Percent Auto 7.7 2-11 % Eosinophils Percent Auto 1.2 0-4 % Basophils Percent Auto 0.4 0-2 % NRBC Pct Auto 0.0 0.0-0.2 /100WBC Neutrophils Absolute Auto 7.0 2.0-8.3 x10*3/uL Imm Gran Abs Auto 0.12 0.00-0.03 X10*3/uL Lymphocytes Absolute Auto 2.8 1.2-4.9 X10*3/uL Monocytes Absolute Auto 0.8 0.1-1.2 X10*3/uL Eosinophils Absolute Auto 0.1 0.0-0.4 X10*3/uL Basophils Absolute Auto 0.0 0.0-0.2 X10*3/uL NRBC Abs Auto 0.000 0.0-0.012 X10*3/uL Basic Metabolic Panel Reviewed date:12/26/2024 03:07:56 PM Interpretation: Performing Lab:[facility], [address] [place] [phone] Notes/Report: Sodium 137 135-145 mmol/L Potassium 3.7 3.3-5.1 mmol/L Chloride 105 96-108 mmol/L Carbon Dioxide 24 22-29 mmol/L Anion Gap 12 12-20 Blood Urea Nitrogen 17 9-16 mg/dL Creatinine 0.86 0.5-1.4 mg/dL Creatinine Clr Calc Pharmacy 57.5 eGFR (calculated from the MDRD study equation) and eCrCl (calculated from the Cockcroft-Gault equation) are based on different parameters and may not yield comparable results. If eCrCl result is absurd, please check patient's height/weight. Estimated Glomerular Filt Rate > 60 Chronic Kidney Disease: Estimated GFR < 60 mL/min/1.73m2 Severe Kidney Disease: Estimated GFR < 15 mL/min/1.73m2 Glucose Random 159 60-115 mg/dL Calcium 8.1 8.4-10.2 mg/dL Glucose, Whole Blood Reviewed date:12/26/2024 03:07:47 PM Interpretation: Performing Lab:[facility], [address] [place] [phone] Notes/Report: Glucose, Whole Blood 163 60-115 mg/dL METER # : [id number] Glucose, Whole Blood Reviewed date:12/26/2024 12:31:38 PM Interpretation: Performing Lab:[facility], [address] [place] [phone] Notes/Report: Glucose, Whole Blood 214 60-115 mg/dL METER # : [id number] Glucose, Whole Blood Reviewed date:12/26/2024 04:16:50 PM Interpretation: Performing Lab:[facility], [address] [place] [phone] Notes/Report: Glucose, Whole Blood 162 60-115 mg/dL METER # : [id number] Glucose, Whole Blood Reviewed date:12/27/2024 05:26:03 PM Interpretation: Performing Lab:[facility], [address] [place] [phone] Notes/Report: Glucose, Whole Blood 147 60-115 mg/dL METER # : [id number] Complete Blood Count Auto Di ff Reviewed date:12/27/2024 05:41:08 PM Interpretation: Performing Lab:[facility], [address] [place] [phone] Notes/Report: White Blood Count 11.4 4.8-10.8 X10*3/uL Red Blood Count 3.80 4.60-5.80 X10*6/uL Hemoglobin 12.1 14.0-18.0 g/dl Hematocrit 36.4 42.0-52.0 % Mean Corpuscular Volume 95.8 80.0-98.0 fL Mean Corpuscular Hemoglobin 31.8 27.0-33.0 pg Mean Corpuscular HGB Conc 33.2 31.0-36.0 g/dl Red Cell Distribution Width 15.3 11.0-16.0 % Platelet Count 238 160-400 X10*3/uL Mean Platelet Volume 9.4 9.4-12.4 fL Neutrophils Percent Auto 50.8 45-73 % Imm Gran Pct Auto 1.0 0.0-0.4 % Lymphocytes Percent Auto 39.3 20-40 % Monocytes Percent Auto 7.0 2-11 % Eosinophils Percent Auto 1.4 0-4 % Basophils Percent Auto 0.5 0-2 % NRBC Pct Auto 0.0 0.0-0.2 /100WBC Neutrophils Absolute Auto 5.8 2.0-8.3 x10*3/uL Imm Gran Abs Auto 0.11 0.00-0.03 X10*3/uL Lymphocytes Absolute Auto 4.5 1.2-4.9 X10*3/uL Monocytes Absolute Auto 0.8 0.1-1.2 X10*3/uL Eosinophils Absolute Auto 0.2 0.0-0.4 X10*3/uL Basophils Absolute Auto 0.1 0.0-0.2 X10*3/uL NRBC Abs Auto 0.000 0.0-0.012 X10*3/uL Basic Metabolic Panel Reviewed date:12/27/2024 05:38:02 PM Interpretation: Performing Lab:[facility], [address] [place] [phone] Notes/Report: Sodium 139 135-145 mmol/L Potassium 3.7 3.3-5.1 mmol/L Chloride 106 96-108 mmol/L Carbon Dioxide 27 22-29 mmol/L Anion Gap 10 12-20 Blood Urea Nitrogen 15 9-16 mg/dL Creatinine 0.80 0.5-1.4 mg/dL Creatinine Clr Calc Pharmacy 61.8 eGFR (calculated from the MDRD study equation) and eCrCl (calculated from the Cockcroft-Gault equation) are based on different parameters and may not yield comparable results. If eCrCl result is absurd, please check patient's height/weight. Estimated Glomerular Filt Rate > 60 Chronic Kidney Disease: Estimated GFR < 60 mL/min/1.73m2 Severe Kidney Disease: Estimated GFR < 15 mL/min/1.73m2 Glucose Random 163 60-115 mg/dL Calcium 8.1 8.4-10.2 mg/dL Glucose, Whole Blood Reviewed date:12/27/2024 05:32:13 PM Interpretation: Performing Lab:[facility], [address] [place] [phone] Notes/Report: Glucose, Whole Blood 161 60-115 mg/dL METER # : [id number] Hold Gold Reviewed date:12/27/2024 05:27:08 PM Interpretation: Performing Lab:[facility], [address] [place] [phone] Notes/Report: Aubree Gold See Note Specimen held untested for 24 hours; Call to request Chemistry testing. Glucose, Whole Blood Reviewed date:12/27/2024 04:51:49 PM Interpretation: Performing Lab:[facility], [address] [place] [phone] Notes/Report: Glucose, Whole Blood 265 60-115 mg/dL METER # : [id number] XR chest 2V Reviewed date:01/09/2025 01:45:09 PM Interpretation: Performing Lab: Notes/Report: [address] [place] [address] XRay Report Signed Patient: Dleia Chávez MR#: [id number] : 1935 Acct:[id number] Age/Sex: 89 / M ADM Date: 01/09/25 Loc: [facility] Attending Dr: Orestes Alex MD Ordering Physician: Orestes Alex MD Date of Service: 01/09/25 Procedure(s): XR chest 2V Accession Number(s): [id number] cc: Orestes Alex MD EXAMINATION: XR CHEST CLINICAL INFORMATION: PNEMONIA COMPARISON: Correlation made with x-ray and CT exam 12/24/2024. TECHNIQUE: 2 views of the chest were obtained. FINDINGS: There is mild cardiac enlargement. There is an aortic valve replacement (TAVR). Aortic mural calcifications. Hilar silhouettes appear normal. Lungs are diffusely hyperaerated. There is segmental consolidation in the posterior left upper lobe, consistent with improving pneumonia as compared with the prior exam. There are patchy basilar opacities, also improving. There is no pneumothorax or pleural effusion. There is no focal osseous or soft tissue abnormality. XR/XR chest 2V IMPRESSION: 1. Improving left upper lobe and bibasilar pneumonic opacities. No definite effusions. 2. COPD. 3. Mild cardiac enlargement with TAVR Electronically signed by: Tirso Garcia MD 01/09/2025 12:56 PM EDT RP Dictated By: Tirso Garcia MD Signed By: <Electronically signed by Tirso Garcia MD in [place]> 01/09/25 1256 DD/ 1222 TD/TT: 01/09/25 1230 Web Architect: [place] [id number] XRay Report Signed Patient: Delia Chávez MR#: [id number] : 1935 Acct:[id number] Age/Sex: 89 / M ADM Date: 01/09/25 Loc: HO.XRAY Attending Dr: Orestes Alex MD Ordering Physician: Orestes Alex MD Date of Service: 01/09/25 Procedure(s): XR [facility] st 2V Accession Number(s): [id number] cc: Orestes Alex MD EXAMINATION: XR CHEST CLINICAL INFORMATION: PNEMONIA COMPARISON: Correlation made wit h x-ray and CT exam 12/24/2024. TECHNIQUE: 2 views of the chest were obtained. FINDINGS: There is mild cardia c enlargement. There is an aortic valve replacement (TAVR). Aortic mural calcifications. Hilar silhouettes appear normal. Lungs are diffusely hyperaerated. There is segmental consolidation in the posterior left upper lobe, consistent with improving pneumonia as compared with the prior exam. There are patchy basilar opacities, also improving. There is no pneumothorax or pleural effusion. There is no focal osseous or soft tissue abnormality. XR/XR chest 2V IMPRESSION: 1. Improving left up per lobe and bibasilar pneumonic opacities. No definite effusions. 2. COPD. 3. Mild cardiac enlargement with TAVR Electronically alex d by: Tirso Garcia MD 01/09/2025 12:56 PM EDT RP Dictated By: Tirso Garcia MD Signed By: <Electronically signed by Tirso Garcia MD in [place]> 01/09/25 1256 DD/ 1222 TD/TT: 01/09/25 1230 Web Architect: Reason For Referral No Information Medications Medication SIG (Take, Route, Frequency, Duration) Notes Start Date End Date Status Amoxicillin 500 MG TAKE 4 CAPSULES BY M OUTH 1 HOUR BEFORE DENTAL APPOINTMENT FOR 1 DAY Active SITagliptin 50 MG 1tablets Orally Once a day Active glipiZIDE 5 MG TAKE 1 TABLET ONCE D AILY 30MINUTES BEFORE BREAKFAST Active metFORMIN HCl 500 MG 1 tablet Orally twi ce a day Active Dilt-XR 180 MG TAKE 1 CAPSULE BY MO UTH EVERY DAY for 30 Active Atorvastatin Calcium 80 MG TAKE 1 TABLET ONCE DAILY Active FreeStyle Lite Test - USE TO TEST BLOOD SUGAR FOUR TIMES DAILY for 100 Active Accu-Chek Suzanne Plus 0 DIRECTED DAILY IN VITRO 90 Active Metoprolol Succinate ER 25 MG 1 tablet Orally Once a day Active FeroSul 325 (65 Fe) MG TAKE 1 TABLET BY MOUTH EVERY DAY Orally for 90 days Active Levothyroxine Sodium 125 MCG TAKE 1 TABLET EVERY MORNINGON AN EMPTY STOMACH Active Eliquis 5 MG TAKE 1 TABLET TWICE A DAY Active FreeStyle Lancets - USE TO TEST BLOOD SAINZ GAR FOUR TIMES DAILY for 90 Active Tamsulosin HCl 0.4 MG TAKE 1 CAPSULE ONC E DAILY DIRECTED Active Furosemide 40 MG TAKE 1 TABLET BY ETELVINA TH EVERY DAY Active Immunizations Vaccine Route Administration Date Status Comme nts Flu Vaccine IM Intramuscular 02/07/2011 Administered Flu Vaccine IM Intramuscular 02/27/2012 Administered Flu Vaccine IM Intramuscular 03/03/2013 Administered PPSV23 (Pnemovax) Unknown 03/07/2013 Administered Fluarix Quadrivalent IM Intramuscular 02/13/2014 Administjessi burrell Prevnar 13 IM Intramuscular 09/10/2014 Administered Fluarix Quadrivalent IM Intramuscular 03/08/2015 Administjessi burrell Fluarix Quadrivalent IM Intramuscular 03/21/2016 Adminsudhakar burrell TDaP IM Intramuscular 03/31/2016 Administered Fluarix Quadrivalent IM Intramuscular 02/13/2017 Administe red Shingrix IM Intramuscular 12/06/2017 Administered [facility] Kory Rosario Fluarix Quadrivalent IM Intramuscular 03/05/2018 Administe red Shingrix Unknown 02/11/2018 Administered PPSV23 (Pnemovax) IM Intramuscular 04/16/2018 Administered Fluarix Quadrivalent IM Intramuscular 03/03/2019 Adminsudhakar red Influenza High Dose IM Intramuscular 02/20/2020 Administer ed Covid Vaccine Unknown 07/16/2020 Administered [facility] Covid Vaccine Unknown 08/06/2020 Administered [...] W/U Status Risk Notes Problem Atrial fibrillation (94495639) Atrial fibrillation (I48.91) Active confirmed Problem 335716785 Thrombocytopenia (D69.6) Active confirmed Problem 59313313 Lymphocytosis (D72.820) Active confirmed Problem 05111980 Prostatism (N40.0) Active confirmed Problem Insomnia (517260282) Insomnia (G47.00) Active confirmed Problem Congestive heart failure (05819395) CHF (congestive heart failure) (I50.9) Active confirmed Problem 92826871 Hypercalcemia (E83.52) Active confirme d Problem 6536896 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 Problem 45860832 Essential hypert ension (I10) Active confirmed Problem 867921100 Acquired hypothyroidism (E03.9) Active confirmed Problem 06381104 Type 2 diabetes mellitus without complication (E11.9) Active confirmed Problem 352804846 Hypoglycemia (E16.2) Active confirmed Problem 36064789 Iron deficiency anemia, unspecified iron deficiency anemia type (D50.9) Active confirmed Problem 290916799 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 Problem Aortic valve disorder (8745315) Severe aortic stenosis (I35.0) Active confirmed Problem 917912443 Rising PSA level (R97.20) Active confirmed Problem 151808084 Pure hypercholesterolemia (E78.00) Active confirmed Problem 118634463 Imbalance (R26.89) Active confirmed Problem 865369544 Frequent falls (R29.6) Active confirm ed Problem History of heart valve repair with prosthesis (15047215204946 8) H/O aortic valve replacement (Z95.2) Active confirmed Problem 69466144 Aneurysm artery, 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 Vital Signs Blood pressure diastolic 60 mm Hg 01/20/2025 Height 67 in 01/20/2025 Blood pressure systolic 112 mm Hg 01/20/2025 Weight 160 lbs 01/20/2025 BMI 25.06 kg/m2 01/20/2025 Encounters Encounter Location Date Provider Diagnosis Orestes Alex MD [address] [place] [address] [id number] 02/18/2024 Orestes Alex Encounter for immuni zation Z23 Orestes Alex MD [address] [place] [address] [id number] 06/20/2024 Orestes Alex Acquired hypothyroid ism E03.9 ; Type 2 diabetes mellitus without complication E11.9 ; Prostatism N40.0 ; Essential hypertension I10 ; Pure hypercholesterolemia E78.00 and Lymphocytosis D72.[address] MD [address] [place] [address] [id number] 06/27/2024 Orestes Alex Elevated BUN R79.9 ; Type 2 diabetes mellitus without complication E11.9 ; Essential hypertension I10 ; Prostatism N40.0 ; Pure hypercholesterolemia E78.00 ; Colon cancer screening Z12.11 ; Depression screening Z13.31 and Atrial fibrillation I48.91 Orestes Alex MD [address] [place] [address] [id number] 07/24/2024 Orestes Alex Elevated BUN R79.9 Orestes Alex MD [address] [place] [address] [id number] 12/01/2024 Orestes Alex Pure hypercholestero lemia E78.00 Orestes Alex MD [address] [place] [address] [id number] 01/09/2025 Orestes Alex Elevated LFTs R79.89 Orestes Alex MD [address] [place] [address] [id number] 03/17/2024 Orestes Alex Type 2 diabetes monroe itus without complication E11.9 and Frequent falls R29.6 Orestes Alex MD [address] [place] [address] [id number] 08/25/2024 Orestes Alex Type 2 diabetes monroe itus without complication E11.9 and Insomnia G47.00 Orestes Alex MD [address] [place] [address] [id number] 12/04/2024 Orestes Alex Type 2 diabetes monroe itus without complication E11.9 ; Acquired hypothyroidism E03.9 ; Atrial fibrillation I48.91 ; Pure hypercholesterolemia E78.00 and Essential hypertension I10 Orestes Alex MD [address] [place] [address] [id number] 01/09/2025 Orestes Alex Type 2 diabetes monroe itus without complication E11.9 ; CHF (congestive heart failure) I50.9 and Lung mass R91.8 Orestes Alex MD [address] [place] [address] [id number] 01/20/2025 Orestes Alex Type 2 diabetes monroe itus without complication E11.9 and Pneumonia J18.9 Orestes Alex MD [address] [place] [address] [id number] 10/02/2024 Orestes Alex MD [address] [place] [address] [id number] 12/25/2024 Orestes Alex Pneumonia J18.9 Orestes Alex MD [address] [place] [address] [id number] 12/31/2024 Orestes Alex MD [address] [place], [place] [id number] 02/02/2025 Orestes Alex Assessments Encounter Date Diagnosis (ICD [...] meds 07/24/2024 Elevated BUN (ICD-10 - R79.9) 12/01/2024 Pure hypercholesterolemia (ICD-10 - E78.00) 01/09/2025 Elevated LFTs (ICD-1 0 - R79.89) 03/17/2024 Type 2 diabetes mellitus without complication [...] advised to only sleep for 20 mins 12/04/2024 Type 2 diabetes mellitus without complication (ICD-10 - E11.9) 01/09/2025 Type 2 diabetes mellitus without complication (ICD-10 - E11.9) 01/09/2025 CHF (congestive hear t failure) (ICD-10 - I50.9) double the furosemide for the next week/ very short of breath today with swelling in legs and 5 pound weight gain am concerned that he has some volume overload 01/20/2025 Type 2 diabetes mellitus without complication (ICD-10 - E11.9) doing well on meds, will continue current regiment 01/20/2025 Pneumonia (ICD-10 - J18.9) doing well with no chf on the cxr but the pneumonias not completely gone/ order given to patient 12/25/2024 Pneumonia (ICD-10 - J18.9) order made and mailed to the patient to be done in 2 weeks. 06/20/2024 Prostatism (ICD-10 - N40.0) 06/27/2024 Essential hypertensi on (ICD-10 - I10) doing well on meds 03/17/2024 Frequent falls (ICD- 10 - R29.6) need last note from dr rasmussen in january/ request will sent, Total time spent on the date of the encounter is 35 minutes including both face to face time spent and time spent reviewing documentation, and counseling the patient. 12/04/2024 Acquired hypothyroid ism (ICD-10 - E03.9) 01/09/2025 Lung mass (ICD-10 - R91.8) was not there one month ago and seems likely infection. had a repeat cxr today that shows improvement that supports that it is not a cancer 06/20/2024 Essential hypertensi on (ICD-10 - I10) 06/27/2024 Prostatism (ICD-10 - N40.0) 12/04/2024 Atrial fibrillation (ICD-10 - I48.91) 06/20/2024 Pure hypercholesterolemia (ICD-10 - E78.00) 06/27/2024 Pure hypercholesterolemia (ICD-10 - E78.00) 12/04/2024 Pure hypercholesterolemia (ICD-10 - E78.00) stable, will continue current regiment 06/20/2024 Lymphocytosis (ICD-1 0 - D72.820) 06/27/2024 Colon cancer screeni ng (ICD-10 - Z12.11) 12/04/2024 Essential hypertensi on (ICD-10 - I10) doing well, will continue current regiment 06/27/2024 Depression screening (ICD-10 - Z13.31) 06/27/2024 Atrial fibrillation (ICD-10 - I48.91) stable, will continue current regiment Plan Of Treatment Pending Test Test Name Order Date Electrocardiogram (EKG) 03/31/2016 ECHO 05/23/2021 Liver Panel 01/09/2025 XR chest 2V 12/25/2024 Blood Urea Nitrogen 07/24/2024 Creatinine 07/24/2024 Next Appt Details Provider Name:Orestes Linda ier, 02/10/2025 09:00:00 AM, [address], [place], [place], [phone], Provider Name:Orestes Linda ier, 06/26/2025 07:15:00 AM, [address], [address], [place], [phone], Provider Name:Orestes Linda ier, 07/03/2025 01:30:00 PM, [address], [address], [place], [phone], Insurance Providers Payer Name Payer Address Payer Phone Subscriber Number Group Number Insured Name Patient Relationship to Insured Coverage Start Date Coverage End Date MEDICARE [employer] [address] [place] [address] [id number] Delia Chávez Self - patient is the insured MEDEX BCBS OF [facility] [address] [place] [phone] [id number] Delia Chávez Self - patient is the insured Medical (General) History Medical History History ICD Code Hypothyroidism type II diabetes hypercholesterolemia colonoscopy 2008 not to have any more; C olonoscopy 01/09/19 - Dr. Allen cardiac cath october 2016 entirely normal sitiglip is esteban
[2025-02-03 15:31] VITALS: PULSE 61; O2SAT 91
== END 2025-02-03 15:31 | disposition home or self-care (01) ==
LOC: HO.HPSW 14:18
PROVIDERS: PCP Internal Medicine; Visit Provider Nurse Practitioner Family
DX: R94.2 Abnormal results of pulmonary function studies (principal); R06.02 Shortness of breath; Z87.01 Personal history of pneumonia (recurrent)
CPT/HCPCS: 94618; 99214

== ENCOUNTER → 2025-02-03 14:18 | Outpatient (BNVA) | payer MEDICARE, SELFPAY ==
[2024-12-23 15:15] VITALS: BP 122/60; BP 134/60; BMI 24.7
== END ==
PROVIDERS: PCP Internal Medicine; Visit Provider Nurse Practitioner Family
DX: R94.2 Abnormal results of pulmonary function studies (principal); R06.02 Shortness of breath; Z87.01 Personal history of pneumonia (recurrent)
CPT/HCPCS: 94618; 99212

== ENCOUNTER 2025-02-13 11:48 | Outpatient (REF) | payer MEDICARE, SELFPAY ==
--- OUTSIDE RECORDS SUMMARY | 2010-08-11 07:08 | XMS_ITS | Continuity of Care Document ---
Author Organization [facility] Address [address] [place] [address] Phone Care Team Providers Care Php Developer Name Role Phone BEVERLY DAVILA [facility] [place] Unavailable Unavailable Procedures Procedure Date STRESS ECHO W/PHY SUP/REPT DOPPLER ECHO EXAM, HEART DOPPLER COLOR FLOW ADD-ON Advance Directives Directive Yes / No Effective Date File Name No Information Encounters Encounter Description Practice Location Reason(s) For Visit Diagnoses Date Provider Providers Copied on Encounter [facility], [address], [place], [address], [place] tel:[phone] [facility] Office No Information BEVERLY DAVILA [facility] [place]. [address], [facility], [place], [place], [id number], [place]. tel:[phone] [facility], [address], [place], [address], [place] tel:[phone] [facility] Office Shortness of Breath BEVERLY DAVILA [facility] [place]. [address], [facility], [place], [place], [address], [place]. tel:[phone] Referring Provider: Cherie Badillo NP [facility], [address] [facility] [place], [address]. tel:[phone] Family History Family Member Type Diagnosis Age At Onset No Information Payers Payer name Insurance type Covered green party ID Authorgricel lora(s) Medicare Part B [id number] [facility] Out Of Area [id number] Social History Type Description Quantity Date Captured [...]
--- OUTSIDE RECORDS SUMMARY | 2024-09-01 09:00 | XMS_ITS ---
Author Organization [facility] Address [address] [place] [address] Care Team Providers Care Leaded Glass Installer Name Role Phone Orestes Alex MD Primary Care Provider Xenia Rojas [phone] Mark Encounters Encounter Location Date Provider Diagnosis [address] [address] 09/01/2024 Xeniajessi Hernández Plan Of Treatment Next Appt Details Provider Name:Xenia Hernández , 04/13/2025 03:30:00 PM, [address] [place] [address], [phone], Progress Notes * Richard CAT WDOB:1935 (89 yo M)Acc No.[id number]:09/01/2024 Progress Note Patient: Richard HERRERA Provider: Sherita Hernández DPM :1935 A ge:89 Y S ex:Male Date:09/01/2024 Address[address] [place] Pcp:Orestes Alex MD Subjective: * Chief Complaints: [...] 09/01/2024 Generated for Morelia Ortega on: 0 02/13/2025 12:36 PM EDT
[2024-12-23 15:15] VITALS: BP 122/60; BP 134/60; BMI 24.7
--- OUTSIDE RECORDS SUMMARY | 2025-01-09 04:45 | XMS_ITS ---
Author Organization Orestes Alex MD Address [address] [place], [place] [phone] Care Team Providers Care Bulk Plant Operator Name Role Phone Orestes Alex Primary Care Provider Results Component Value Reference Range Notes Liver Panel Reviewed date:02/13/2025 11:34:17 AM Interpretation:02-13-2025 Performing Lab:[facility], [address] [place] [phone] Notes/Report: Bilirubin Total 0.7 0.0-1.0 mg/dL Bilirubin Direct 0.4 0.0-0.5 mg/dL Aspartate Amino Transferase 87 5-37 U/L Alanine Aminotransferase 78 0-40 U/L Total Protein 6.6 6.5-8.0 g/dL Albumin Level 3.4 3.5-5.0 g/dL Alkaline Phosphatase 154 39-117 U/L REASON FOR VISIT 1 month repeat LFT's Encounters Encounter Location Date Provider Diagnosis Orestes Alex MD [address] [place], [place] [phone] 01/09/2025 Orestes Alex Elevated LFTs R79.89 Assessments Encounter Date Diagnosis (ICD Code) Assessment Notes Treatment Notes Treatment Clinical Notes Section Notes 01/09/2025 Elevated LFTs (ICD-10 - R79.89) Plan Of Treatment Next Appt Details Provider Name:Orestes Linda ier, 06/26/2025 07:15:00 AM, [address] [place] [address] Drive, [address], [place], [phone], Provider Name:Orestes Linda ier, 07/03/2025 01:30:00 PM, [address] [place] [address], [address], [place], [phone], Progress Notes * Delia CAT WDOB:1935 (89 yo M)Acc No.[id number]:01/09/2025 Progress Note Patient: Delia HERRERA Provider: Nicolette Alex MD :1935 A ge:89 Y S ex:Male Date:01/09/2025 Address:[address] [place] [address], [facility] [place], [id number] Subjective: * Chief Complaints: * 1 . [...] MD Date: 0 01/09/2025 Generated for Morelia martell/Bernardino/Reynaitting on: 02/13/2025 12:37 PM EDT
--- OUTSIDE RECORDS SUMMARY | 2025-01-09 07:45 | XMS_ITS ---
Author Organization Orestes Alex MD Address [address] [place], [place] [phone] Care Team Providers Care Civil Defense Director Name Role Phone Orestes Alex Primary Care [...] Status Risk Notes Problem Congestive heart failure (64957630) CHF (congestive heart failure) (I50.9) Active confirmed Vital Signs Blood pressure systolic 122 mm Hg 01/10/20 25 Blood pressure diastolic 64 mm Hg 025 Height 67 in 01/09/2025 Weight 159 lbs 01/09/2025 BMI 24.9 kg/m2 01/09/2025 weight is up 5 pounds since Encounters Encounter Location Date Provider Diagnosis Orestes Alex MD [address] [place] [address] Drive [address] [place], [place] [phone] 01/09/2025 Orestes Alex Type 2 diabetes mellitus [...] Name:Orestes Venancio Maddi ier, 06/26/2025 07:15:00 AM, [address] [place] [address] Drive, [address], [place], [place], [phone], Provider Name:Orestes Craft Belenzi ier, 07/03/2025 01:30:00 PM, [address] [facility], [address], [place], [place], [phone], Progress Notes * Delia CAT WDOB:1935 (89 yo M)Acc No.[id number]:01/09/2025 Patient: Delia HERRERA Provider: Nicolette Alex MD :1935 A ge:89 Y S ex:Male Date:01/09/2025 Address:[address] [place] [address], [id number] Subjective: * Chief Complaints: * P H/TCM [...] BP:122/64, Wt-k.12. weight is up 5 pounds [id number]. * Examination: G eneral Examination: GENERAL APPEARANCE: [...] 0 01/09/2025 Generated for Morelia martell/Bernardino/eTransmitting on: 0 02/13/2025 12:37 PM EDT History and Physical Notes * [...]
--- OUTSIDE RECORDS SUMMARY | 2025-01-20 09:45 | XMS_ITS ---
Author Organization Orestes Alex MD Address [address] [place], [place] [phone] Care Team Providers Care Armature Winder Helper Repair Name Role Phone Orestes Alex Primary Care [...] Location Date Provider Diagnosis Orestes Alex MD [address] [place] [address] [place] [phone] 01/20/2025 Orestes Alex Type 2 diabetes mellitus [...] & LAT 02/17/2025 Next Appt Details Provider Name:Oretses javier, 06/26/2025 07:15:00 AM, [address] [facility] [address], [address], [place], [place], [phone], Provider Name:Orestes Linda ier, 07/03/2025 01:30:00 PM, [address] [facility] [address], [address], [place], [place], [phone], Progress Notes * Delia CAT WDOB:1935 (89 yo M)Acc No.[id number]:01/20/2025 Progress Notes Patient: Delia HERRERA Provider: Nicolette Aelx MD :1935 A ge:89 Y S ex:Male Date:01/20/2025 Address:[address] [place] [address], [facility] [id number] Subjective: * Chief Complaints: * 1 0 [...] 01/20/2025 Generated for Morelia martell/Bernardino/Reynaitting on: 0 02/13/2025 12:37 PM EDT History [...]
--- OUTSIDE RECORDS SUMMARY | 2025-02-02 09:35 | XMS_ITS ---
Author Organization Orestes Alex MD Address [address] [place] [phone] Care Team Providers Care Dean Name Role Phone Orestes Alex Primary Care Provider REASON FOR VISIT bilateral ankle edema x 1 day Encounters Encounter Location Date Provider Diagnosis Orestes Alex MD [address] [place] [address] [place] [phone] 02/02/2025 Orestes Alex Plan Of Treatment Next Appt Details Provider Name:Orestes javier, 06/26/2025 07:15:00 AM, [address] [place] [address], Suite [facility], [place], [place], [phone], Provider Name:Orestes javier, 07/03/2025 01:30:00 PM, [address] [place] [address], Suite [facility], [place], [place], [phone], Progress Notes * Delia CAT WDOB:1935 (89 yo M)Acc No.[id number]:02/02/2025 Patient: Delia HERRERA :1935 A ge:89 Y S ex:Male Address:[address] [place] [address], [place] [address] * true * Date: Generated for Morelia martell/Bernardino/Zhangsmitting on: 0 02/13/2025 12:37 PM EDT
--- OUTSIDE RECORDS SUMMARY | 2025-02-13 05:00 | XMS_ITS ---
Author Organization Orestes Alex MD Address [address] [place], [place] [id number] Care Team Providers Care Import/Export Administrator Name Role Phone Orestes Alex Primary Care Provider Results Component Value Reference Range Notes Liver Panel (Not yet reviewe d by provider) Interpretation: Performing Lab:[facility], [address] [place] [phone] Notes/Report: Bilirubin Total 0.9 0.0-1.0 mg/dL Bilirubin [...] Diagnosis Orestes Alex MD [address] [place], [place] [id number] 02/13/2025 Orestes Alex Elevated liver enzym es R74.8 and Encounter for administration of vaccine Z23 Assessments Encounter Date Diagnosis (ICD Code) Assessment Notes Treatment Notes Treatment Clinical Notes Section Notes 02/13/2025 Elevated liver enzymes (ICD-10 - R74.8) 02/13/2025 Encounter for administration of vaccine (ICD-10 - Z23) Plan Of Treatment Pending Test Test Name Order Date Liver Panel 02/13/2025 Next Appt Details Provider Name:Orestes Linda ienia, 06/26/2025 07:15:00 AM, [address], Suite [facility], [place], [place], [id number], Provider Name:Orestes javier, 07/03/2025 01:30:00 PM, [address] [place] [address], Suite [facility], [place], [place], [id number], Progress Notes * STEPHANIA Delia WDOB:1935 (89 yo M)Acc No.[id number]:02/13/2025 Progress Note Patient: Delia HERRERA Provider: Nicolette Alex MD :1935 A ge:89 Y S ex:Male Date:02/13/2025 Address:[address] [place] [address], [facility] Subjective: * Chief Complaints: * 1 . Liver panel. * Medical History: Objective: * Vitals: Assessment: * Assessment: 1. E levated liver enzymes - R74.8 (Primary) 2 . E ncounter for administration of vaccine - Z23 Plan: * Treatment: * Immunizations: Influenza High Dose : 0.5 mL (Dose No:1) (Route: Intramuscular) given by Liliana Chen , Office Staff on Left Deltoid * Procedure Codes: 3 6415 VENIPUNCT, ROUTINE*, 00721 FLU VACC PRSV FREE INC ANTIG, G0008 ADMN FLU VAC NO FEE SCHED SAME DAY * * The named appointment provid er may or may not be the originator of this progress note, and it is not deemed complete until electronically signed by the appointment provider. Sign off status: Pending * Provider: Nicolette Alex MD Date: 02/13/2025 Generated for Morelia martell/Bernardino/Delia on: 02/13/2025 12:36 PM EDT
[2025-02-13 12:08] LABS: Alanine Aminotransferase 26 U/L (0-40); Albumin Level 3.9 g/dL (3.5-5.0); Alkaline Phosphatase 126 U/L (39-117); Aspartate Amino Transferase 44 U/L (5-37); Total Protein 7.0 g/dL (6.5-8.0)
--- OUTSIDE RECORDS SUMMARY | 2025-02-13 12:37 | XMS_ITS | Patient Health Record ---
Author Organization [facility] Address [address] [place] [id number] Care Team Providers Care Utility Operator Yarn Name Role Phone Orestes Alex MD Primary Care Provider Mario [address] Unavailable [phone] Allergies Allergen (clinical drug ingredient) Drug/Non Drug [...] Problem Status W/U Status Risk Notes Problem 51476672 Rectal bleeding (K62.5) Active confirmed Problem 48642822 Change in bowel function (R19.4) Active confirmed Problem Anemia (362769170) Anemia (D64.9) Active confirmed Problem 43969240 Constipation, unspecified constipation type (K59.00) Active confirmed Problem 850206730 Anemia, unspecified type (D64.9) Active confirmed Plan [...] Date MEDICARE OF [place] [address] [place] [address] [phone] [id number] DELIA CAT Self - patient is the insured [employer] ATT[employer] CLAIMS [address] [place] [phone] [id number] DELIA CAT Self - patient is the insured Medical (General) History Medical History History ICD Code Colonoscopy 10-06-2007 and 97--negative except diverticulosis and internal hemorrhoids; 3 negative Hemoccult cards in 01/2016 Hyperlipidemia BPH Denies OR,CVA,Lung disease,renal disease NIDDM Hypothyroidism Colonoscopy 01/2019 several small tubular adenomas removed Surgical History Surgery Date(Month/Year) Thumb surgery 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
--- OUTSIDE RECORDS SUMMARY | 2025-02-13 12:37 | XMS_ITS | Patient Health Record ---
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 Panel Fa st Reviewed date:06/27/2024 01:10:00 PM Interpretation:ZELAL[place] 06/27/24 Performing Lab:[facility], [address] [place] [phone] Notes/Report: Sodium 142 135-145 mmol/L Potassium 4.3 [...] Panel Reviewed date:06/20/2024 05:16:22 PM Interpretation: Performing Lab:[address] [address] Notes/Report: Triglycerides 117 <150 mg/dL Desirable Triglyceride: [...] (Free>4and<10) Reviewed date:06/20/2024 05:11:58 PM Interpretation: Performing Lab:[address] [address] Notes/Report: PSA,Total (Free>4and<10) 0.38 0.00-4.00 ng/mL A [...] Random Reviewed date:06/20/2024 05:11:49 PM Interpretation: Performing Lab:[address] [address] Notes/Report: Creatinine Urine 93.86 Microalbumin Urine 107.0 Microalbum/Creatinine Ratio Ur 113.9 <30 ug/mg cr Albumin/Creatinine Ratio Reference Ranges: Normal: < 30 ug/mg creatinine Microalbuminuria: 30 - 300 ug/mg creatinine Clinical Albuminuria: > 300 ug/mg creatinine Hemoglobin A1c Reviewed date:06/20/2024 05:12:06 PM Interpretation: Performing Lab:[address] [address] Notes/Report: Hemoglobin A1c % 7.3 <6.0 % [...] average glucose, using the formula of the H3P-Nksiqxf Average Glucose study (ADAG), Diabetes Care, Vol.31,#8, Jan. 2007 UA ClnCatch+Micro w/rflx Cul t Reviewed date:06/20/2024 05:38:57 PM Interpretation: Performing Lab:[address] [address] Notes/Report: Urine, Clean Catch Color Urine Yellow Appearance Urine Clear PH 5.5 5.0-9.0 Glucose Urine UA Negative Negative mg/dL Urine Blood Negative Negative Specific [place] - Urine 1.020 1.005-1.025 Urine Protein Trace Neg-Trace mg/dL Urine Ketones Negative Negative mg/dL Nitrite Urine Negative Negative Leukocyte Esterase Urine Negative Negative RBC Urine 0-2 0-2 /HPF WBC Urine 0-5 0-5 /HPF Squamous Epithelial Cell Urine 0-2 0-2 /HPF Bacteria Urine None Seen None Seen Hyaline Casts Urine 0-2 0-2 /LPF Liver Panel Reviewed date:12/01/2024 05:23:44 PM Interpretation: Performing Lab:[address] [address] Notes/Report: Bilirubin Total 0.9 0.0-1.0 mg/dL Bilirubin Direct 0.4 0.0-0.5 mg/dL Aspartate Amino Transferase 41 5-37 U/L Alanine Aminotransferase 23 0-40 U/L Total Protein 7.3 6.5-8.0 g/dL Albumin Level 3.9 3.5-5.0 g/dL Alkaline Phosphatase 195 39-117 U/L Lipid Panel with Reflex Reviewed date:12/02/2024 08:16:58 AM Interpretation: Performing Lab:[address] [address] Notes/Report: Triglycerides 127 <150 mg/dL Desirable Triglyceride: [...] in patients with liver disease. Liver Panel Reviewed date:02/13/2025 11:34:17 AM Interpretation:02-13-2025 Performing Lab:[address] [address] Notes/Report: Bilirubin Total 0.7 0.0-1.0 mg/dL Bilirubin Direct 0.4 0.0-0.5 mg/dL Aspartate Amino Transferase 87 5-37 U/L Alanine Aminotransferase 78 0-40 U/L Total Protein 6.6 6.5-8.0 g/dL Albumin Level 3.4 3.5-5.0 g/dL Alkaline Phosphatase 154 39-117 U/L Liver Panel (Not yet reviewe d by provider) Interpretation: Performing Lab:[facility] [address], [place] [address] Notes/Report: Bilirubin Total 0.9 0.0-1.0 mg/dL Bilirubin Direct 0.4 0.0-0.5 mg/dL Aspartate Amino Transferase 44 5-37 U/L Alanine Aminotransferase 26 0-40 U/L Total Protein 7.0 6.5-8.0 g/dL Albumin Level 3.9 3.5-5.0 g/dL Alkaline Phosphatase 126 39-117 U/L Glucose, finger stick Reviewed date:03/17/2024 [...] date:10/29/2024 03:54:47 PM Interpretation: Performing Lab: Notes/Report: [address] [address] XRay Report Signed Patient: Delia Chávez MR#: [id number] : 1935 Acct:[id number] Age/Sex: 89 / M ADM Date: 10/28/24 Loc: DYLAN Attending Dr: Cm Rivas NP Ordering Physician: Cm Rivas NP Date of Service: 10/28/24 Procedure(s): XR chest 2V Accession Number(s): [id number] cc: Orestes Alex MD; Cm Rivas NP [...] 10/28/24 1550 DD/ 1536 TD/TT: 10/28/24 1542 Psychology Tech: [address] [address] XRay Report Signed Patient: Delia Chávez MR#: [id number] : 1935 Acct:[id number] Age/Sex: 89 / M ADM Date: 10/28/24 Loc: HO.MADINAAY Attending Dr: Cm Rivas NP Ordering Physician: Cm Rivas NP Date of Service: 10/28/24 Procedure(s): XR [facility] [facility] 2V Accession Number(s): [id number] cc: Orestes Alex MD; Cm Rivas NP [...] 10/28/24 1550 DD/ 1536 TD/TT: 10/28/24 1542 Psychology Tech: Aubree Morales Reviewed date:12/01/2024 12:26:31 PM Interpretation: Performing Lab:[facility], [address] [place] [phone] Notes/Report: Aubree Morales See Note Specimen held untested for 24 hours; Call to request Chemistry testing. Complete Blood Count Auto Di ff Reviewed date:12/24/2024 03:54:40 PM Interpretation: Performing Lab:[facility], [address] [place] [phone] Notes/Report: White Blood Count 13.8 4.8-10.8 X10*3/uL [...] INR Reviewed date:12/25/2024 12:13:33 PM Interpretation: Performing Lab:[address] [address] Notes/Report: Prothrombin Time 16.4 10.9-12.4 SEC [employer] [...] Time Reviewed date:12/25/2024 12:56:06 PM Interpretation: Performing Lab:[address] [address] Notes/Report: Partial Thromboplastin Time 37.1 26.0-36.8 SEC For information regarding the monitoring of direct thrombin inhibitors, please refer to Pharmacy. Comprehensive Met. Panel Reviewed date:12/24/2024 04:05:16 PM Interpretation: Performing Lab:[address] [address] Notes/Report: Sodium 132 135-145 mmol/L Potassium 4.2 [...] Acid Reviewed date:12/25/2024 12:13:13 PM Interpretation: Performing Lab:[facility], [address] [place] [phone] Notes/Report: Lactic Acid 3.1 0.5-2.0 mmol/L Critical value for test(s): LACTA Results called to and read back by: SHNU Person calling: ANA Date: 12.24.24 Time: 1919 Magnesium Reviewed date:12/24/2024 03:54:51 PM Interpretation: Performing Lab:[facility], [address] [place] [phone] Notes/Report: Magnesium 1.6 1.6-2.6 mg/dL Troponin-I High Sensitivity Reviewed date:12/24/2024 04:02:15 PM Interpretation: Performing Lab:[facility], [address] [place] [phone] Notes/Report: Troponin-I High Sensitivity 78.5 <3.5-35.0 ng/L The Joseph high sensitivity Troponin-I results should be used in conjunction with other diagnostic information such as ECG, clinical observations and information, and patient symptoms to aid in the diagnosis of [place]. B Type Natriuretic Peptide Reviewed date:12/24/2024 04:01:59 PM Interpretation: Performing Lab:[facility], [address] [place] [phone] Notes/Report: B Type Natriuretic Peptide 227 <100 pg/mL SARS-CoV2/FLU/RSV Reviewed date:12/25/2024 12:13:46 PM Interpretation: Performing Lab:[address] [address] Notes/Report: Influenza A PCR NEGATIVE Negative Influenza [...] by authorized laboratories. Testing performed on the [employer] GeneXpert utilizing real-time RT-PCR. All SARS CoV2 and positive influenza A/B results are reported to [facility]. Blood Culture (First) Reviewed date:12/30/2024 12:35:51 PM Interpretation: Performing Lab:[address] [address] Notes/Report: Blood Culture (First) No growth after 5 days. Blood Culture (Second) Reviewed date:12/30/2024 12:38:40 PM Interpretation: Performing Lab:[address] [address] Notes/Report: Blood Culture (Second) No growth after 5 days. Lactic Acid-LAB USE ONLY Reviewed date:12/25/2024 12:11:17 PM Interpretation: Performing Lab:[address] [address] Notes/Report: Lactic Acid-LAB USE ONLY 2.2 0.5-2.0 mmol/L Critical value for test(s): LACTA Results called to and read back by: BLAKE Person calling: ANA Date: 12.24.24 Time: 2245 Venous Blood Gases - POC Reviewed date:12/24/2024 03:41:59 PM Interpretation: Performing Lab:[address] [address] Notes/Report: VBG pH 7.36 7.32-7.43 METER #: [id number] additional_comment: Cb rojascr VBG pCO2 46 METER #: [id number] additional_comment: Cb rojascr VBG pO2 34 METER #: [id number] additional_comment: Cb rojascr VBG Base Excess 1.2 METER #: [id number] additional_comment: Cb rojascr VBG HCO3 26 22-26 mmol/L METER #: [id number] additional_comment: Cb rojascr VBG O2 % Saturation 41.0 METER #: [id number] additional_comment: Cb rojascr D Dimer High Sensitivity Reviewed date:12/25/2024 12:13:21 PM Interpretation: Performing Lab:[facility], [address] [place] [phone] Notes/Report: D Dimer High Sensitivity 469 D-DIMER [...] date:12/25/2024 12:14:35 PM Interpretation: Performing Lab: Notes/Report: [address] [address] [address] Scan Report Signed Patient: Delia Chávez MR#: [id number] : 1935 Acct:[id number] Age/Sex: 89 / M ADM Date: 12/24/24 Loc: .ED Attending Dr: Ordering Physician: Raul Chery MD Date of Service: 12/24/24 Procedure(s): CT chest wo IV con Accession Number(s): [id number] cc: Orestes Alex MD; Raul Chery MD Report Number: [id number]: Total DLP = 291.00 mGy-cm CLINICAL HISTORY: Left lung mass? CT chest without contrast Comparison: CR/SR - XR CHEST 1 VIEW - 12/24/24 15:46 EDT CR/NE/SR - XR CHEST 2V - 10/28/24 15:46 [...] in OV> 12/24/242127 DD/ 25 TD/TT: 12/24/242125 Psychology Tech: [place] [address] [address] Scan Report Signed Patient: Delia Chávez MR#: [id number] : 1935 Acct:[id number] Age/Sex: 89 / M ADM Date: 12/24/24 Loc: .ED Attending Dr: Ordering Physician: Raul Chery MD Date of Service: 12/24/24 Procedure(s): CT [facility] wo IV con Accession Number(s): [id number] cc: Orestes Alex MD; Raul Chery MD Report Number: [id number]: Total DLP = 291.00 mGy-cm CLINICAL HISTORY: Le ft lung mass? CT chest without contrast Comparison: CR/SR - XR CHEST 1 VIEW - 12/24/24 15:46 EDT CR/NE/SR - XR CHEST 2V - 10/28/24 15:46 [...] in OV> 12/24/242127 DD/ 25 TD/TT: 12/24/242125 Psychology Tech: XR chest 1V Reviewed date:12/24/2024 04:10:13 PM Interpretation: Performing Lab: Notes/Report: [address] [address] XRay Report Signed Patient: Delia Chávez MR#: [id number] : 1935 Acct:[id number] Age/Sex: 89 / M ADM Date: 12/24/24 Loc: .ED Attending Dr: Ordering Physician: Generic ED Physician Date of Service: 12/24/24 Procedure(s): XR chest 1V Accession Number(s): [id number] cc: Orestes Alex MD; Generic ED Physician [...] 12/24/24 1550 DD/ 1446 TD/TT: 12/24/24 1544 Psychology Tech: [address] [address] XRay Report Signed Patient: Delia Chávez MR#: [id number] : 1935 Acct:[id number] Age/Sex: 89 / M ADM Date: 12/24/24 Loc: HO.ED Attending Dr: Ordering Physician: Generic ED Physician Date of Service: 12/24/24 Procedure(s): XR [facility] [facility] 1V Accession Number(s): [id number] cc: Orestes Alex MD; Generic ED Physician [...] 12/24/24 1550 DD/ 1446 TD/TT: 12/24/24 1544 Psychology Tech: Complete Blood Count Auto Di ff Reviewed date:12/25/2024 05:07:41 PM Interpretation: Performing Lab:[facility], [address] [place] [phone] Notes/Report: White Blood Count 13.0 4.8-10.8 X10*3/uL [...] Panel Reviewed date:12/25/2024 12:53:03 PM Interpretation: Performing Lab:[facility], [address] [place] [phone] Notes/Report: Sodium 135 135-145 mmol/L Potassium 3.8 [...] Sensitivity Reviewed date:12/25/2024 05:06:12 PM Interpretation: Performing Lab:[facility], [address] [place] [phone] Notes/Report: Troponin-I High Sensitivity 43.7 <3.5-35.0 ng/L The Joseph high sensitivity Troponin-I results should be used in conjunction with other diagnostic information such as ECG, clinical observations and information, and patient symptoms to aid in the diagnosis of [place]. Glucose, Whole Blood Reviewed date:12/25/2024 12:10:35 PM Interpretation: Performing Lab:[facility], [address] [place] [phone] Notes/Report: Glucose, Whole Blood 201 60-115 mg/dL METER # : [id number] Lactic Acid-LAB USE ONLY Reviewed date:12/25/2024 12:10:52 PM Interpretation: Performing Lab:[facility], [address] [place] [phone] Notes/Report: Lactic Acid-LAB USE ONLY 3.8 0.5-2.0 mmol/L Critical LACTIC ACID sent by a secure message and confirmed by KARLOS/GUILHERME 12/25/24 0131 Tech:VERA Glucose, Whole Blood Reviewed date:12/25/2024 05:04:54 PM Interpretation: Performing Lab:[facility], [address] [place] [phone] Notes/Report: Glucose, Whole Blood 189 60-115 mg/dL METER # : [id number] Glucose, Whole Blood Reviewed date:12/25/2024 05:05:38 PM Interpretation: Performing Lab:[facility], [address] [place] [phone] Notes/Report: Glucose, Whole Blood 161 60-115 mg/dL METER # : [id number] Glucose, Whole Blood Reviewed date:12/26/2024 04:12:43 PM Interpretation: Performing Lab:[facility], [address] [place] [address] Notes/Report: Glucose, Whole Blood 167 60-115 mg/dL METER # : [id number] Complete Blood Count Auto Di ff Reviewed date:12/26/2024 03:08:03 PM Interpretation: Performing Lab:[facility], [address] [place] [phone] Notes/Report: White Blood Count 10.9 4.8-10.8 X10*3/uL [...] Panel Reviewed date:12/26/2024 03:07:56 PM Interpretation: Performing Lab:[facility], [address] [place] [phone] Notes/Report: Sodium 137 135-145 mmol/L Potassium 3.7 [...] Blood Reviewed date:12/26/2024 03:07:47 PM Interpretation: Performing Lab:[facility], [address] [place] [phone] Notes/Report: Glucose, Whole Blood 163 60-115 mg/dL METER # : [id number] Glucose, Whole Blood Reviewed date:12/26/2024 12:31:38 PM Interpretation: Performing Lab:[facility], [address] [place] [phone] Notes/Report: Glucose, Whole Blood 214 60-115 mg/dL METER # : [id number] Glucose, Whole Blood Reviewed date:12/26/2024 04:16:50 PM Interpretation: Performing Lab:[facility], [address] [place] [phone] Notes/Report: Glucose, Whole Blood 162 60-115 mg/dL METER # : [id number] Glucose, Whole Blood Reviewed date:12/27/2024 05:26:03 PM Interpretation: Performing Lab:[facility], [address] [place] [phone] Notes/Report: Glucose, Whole Blood 147 60-115 mg/dL METER # : [id number] Complete Blood Count Auto Di ff Reviewed date:12/27/2024 05:41:08 PM Interpretation: Performing Lab:[facility], [address] [place] [phone] Notes/Report: White Blood Count 11.4 4.8-10.8 X10*3/uL [...] Panel Reviewed date:12/27/2024 05:38:02 PM Interpretation: Performing Lab:[facility], [address] [place] [phone] Notes/Report: Sodium 139 135-145 mmol/L Potassium 3.7 [...] Blood Reviewed date:12/27/2024 05:32:13 PM Interpretation: Performing Lab:[address] [address] Notes/Report: Glucose, Whole Blood 161 60-115 mg/dL METER # : [id number] Aubree Morales Reviewed date:12/27/2024 05:27:08 PM Interpretation: Performing Lab:[address] [address] Notes/Report: Aubree Morales See Note Specimen held untested for 24 hours; Call to request Chemistry testing. Glucose, Whole Blood Reviewed date:12/27/2024 04:51:49 PM Interpretation: Performing Lab:[address] [address] Notes/Report: Glucose, Whole Blood 265 60-115 mg/dL METER # : [id number] XR chest 2V Reviewed date:01/09/2025 01:45:09 PM Interpretation: Performing Lab: Notes/Report: [address] [address] XRay Report Signed Patient: Delia Chávez MR#: [id number] : 1935 Acct:[id number] Age/Sex: 89 / M ADM Date: 01/09/25 Loc: DYLAN Attending Dr: Orestes Alex MD Ordering Physician: Orestes Alex MD Date of Service: 01/09/25 Procedure(s): XR chest 2V Accession Number(s): [id number] cc: Orestes Alex MD EXAMINATION: XR CHEST [...] Tirso Garcia MD 01/09/2025 12:56 PM EDT Dictated By: Tirso Garcia MD Signed By: <Electronically signed by Tirso Garcia MD in OV> 01/09/25 1256 DD/ 1222 TD/TT: 01/09/25 1230 Psychology Tech: [place] [address] XRay Report Signed Patient: Delia Chávez MR#: [id number] : 1935 Acct:[id number] Age/Sex: 89 / M ADM Date: 01/09/25 Loc: DYLAN Attending Dr: Orestes Alex MD Ordering Physician: Orestes Alex MD Date of Service: 01/09/25 Procedure(s): XR [facility] [facility] 2V Accession Number(s): [id number] cc: Orestes Aelx MD EXAMINATION: XR CHEST CLINICAL INFORMATION: PNEMONIA [...] 01/09/25 1256 DD/ 1222 TD/TT: 01/09/25 1230 Psychology Tech: Reason For Referral No Information Medications Medication SIG (Take, Route, Frequency, Duration) Notes Start Date End Date Status SITagliptin 50 MG 1tablets Orally Once a [...] TAKE 1 CAPSULE ONC E DAILY DIRECTED for 90 Active FreeStyle Lancets - USE TO TEST BLOOD SAINZ GAR FOUR TIMES DAILY for 90 Active Furosemide 40 MG TAKE 1 TABLET BY ETELVINA TH EVERY DAY Active Amoxicillin 500 MG TAKE 4 CAPSULES BY M OUTH 1 HOUR BEFORE DENTAL APPOINTMENT FOR 1 DAY for 1 Active Immunizations Vaccine Route Administration Date Status Comme nts Flu Vaccine IM Intramuscular 02/07/2011 Administered Flu Vaccine IM Intramuscular 02/27/2012 Administered Flu Vaccine IM Intramuscular 03/03/2013 Administered PPSV23 (Pnemovax) Unknown 03/07/2013 Administered Fluarix Quadrivalent IM Intramuscular 02/13/2014 Adminsudhakar burrell Prevnar 13 IM Intramuscular 09/10/2014 Administered Fluarix Quadrivalent IM Intramuscular 03/08/2015 Adminsudhakar red Fluarix Quadrivalent IM Intramuscular 03/21/2016 Adminsudhakar red TDaP IM Intramuscular 03/31/2016 Administered Fluarix Quadrivalent IM Intramuscular 02/13/2017 Adminpayale red Shingrix IM Intramuscular 12/06/2017 Administered [facility] [address] [place] Fluarix Quadrivalent IM Intramuscular 03/05/2018 Adminsudhakar red Shingrix Unknown 02/11/2018 Administered PPSV23 (Pnemovax) IM Intramuscular 04/16/2018 Administered Fluarix Quadrivalent IM Intramuscular 03/03/2019 Adminsudhakar burrell Influenza High Dose IM Intramuscular 02/20/2020 Administer ed Covid Vaccine Unknown 07/16/2020 [facility] Covid Vaccine Unknown 08/06/2020 Administered [...] High Dose IM Intramuscular 02/18/2024 Administer ed Influenza High Dose IM Intramuscular 02/13/2025 Administer ed Flu Vaccine Unknown 02/13/2014 Pending [...] W/U Status Risk Notes Problem Atrial fibrillation (67621202) Atrial fibrillation (I48.91) Active confirmed Problem 584731850 Thrombocytopenia (D69.6) Active confirmed Problem 10865112 Lymphocytosis (D72.820) Active confirmed Problem 35053573 Prostatism (N40.0) Active confirmed Problem Insomnia (079325330) Insomnia (G47.00) Active confirmed Problem Congestive heart failure (18963799) CHF (congestive heart failure) (I50.9) Active confirmed Problem 76126564 Hypercalcemia (E83.52) Active confirme d Problem 9590713 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 Problem 71885866 Essential hypert ension (I10) Active confirmed Problem 383518640 Acquired hypothyroidism (E03.9) Active confirmed Problem 24915782 Type 2 diabetes mellitus without complication (E11.9) Active confirmed Problem 423106868 Hypoglycemia (E16.2) Active confirmed Problem 86362377 Iron deficiency anemia, unspecified iron deficiency anemia type (D50.9) Active confirmed Problem 111154613 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 Problem Aortic valve disorder (5030135) Severe aortic stenosis (I35.0) Active confirmed Problem 779560280 Rising PSA level (R97.20) Active confirmed Problem 886080379 Pure hypercholesterolemia (E78.00) Active confirmed Problem 124781725 Imbalance (R26.89) Active confirmed Problem 445562560 Frequent falls (R29.6) Active confirm ed Problem History of heart valve repair with prosthesis (49455619996024 8) H/O aortic valve replacement (Z95.2) Active confirmed Problem 12402429 Aneurysm artery, 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 Vital Signs Blood pressure diastolic 60 mm Hg 01/20/2025 Height 67 in 01/20/2025 Blood pressure systolic 112 mm Hg 01/20/2025 Weight 160 lbs 01/20/2025 BMI 25.06 kg/m2 01/20/2025 Encounters Encounter Location Date Provider Diagnosis Orestes Alex MD [address] [place], [place] [id number] 02/18/2024 Orestes Alex Encounter for immuni zation Z23 Orestes Alex MD [address] [place] [id number] 06/20/2024 Orestes Alex Acquired hypothyroid ism E03.9 ; Type 2 diabetes mellitus without complication E11.9 ; Prostatism N40.0 ; Essential hypertension I10 ; Pure hypercholesterolemia E78.00 and Lymphocytosis D72.820 Orestes Alex MD [address] [place] [id number] 06/27/2024 Orestes Alex Elevated BUN R79.9 ; Type 2 diabetes mellitus without complication E11.9 ; Essential hypertension I10 ; Prostatism N40.0 ; Pure hypercholesterolemia E78.00 ; Colon cancer screening Z12.11 ; Depression screening Z13.31 and Atrial fibrillation I48.91 Orestes Alex MD [address] [place] [id number] 07/24/2024 Orestes Alex Elevated BUN R79.9 Orestes Alex MD [address] [place] [id number] 12/01/2024 Orestes Alex Pure hypercholestero lemia E78.00 Orestes Alex MD [address] [place] [id number] 01/09/2025 Orestes Alex Elevated LFTs R79.89 Orestes Alex MD [address] [place] [id number] 02/13/2025 Oerstes Alex Elevated liver enzym es R74.8 and Encounter for administration of vaccine Z23 Orestes Alex MD [address] [place] [id number] 03/17/2024 Orestes Alex Type 2 diabetes [place] itus without complication E11.9 and Frequent falls R29.6 Orestes Alex MD [address] [place] [id number] 08/25/2024 Orestes Alex Type 2 diabetes [place] itus without complication E11.9 and Insomnia G47.00 Orestes Alex MD [address] [place] [id number] 12/04/2024 Orestes Alex Type 2 diabetes [place] itus without complication E11.9 ; Acquired hypothyroidism E03.9 ; Atrial fibrillation I48.91 ; Pure hypercholesterolemia E78.00 and Essential hypertension I10 Orestes Alex MD [address] [place] [address] [id number] 01/09/2025 Orestes Alex Type 2 diabetes [place] itus without complication E11.9 ; CHF (congestive heart failure) I50.9 and Lung mass R91.8 Orestes Alex MD [address] [place] [id number] 01/20/2025 Orestes Alex Type 2 diabetes [place] itus without complication E11.9 and Pneumonia J18.9 Orestes Alex MD [address] [place] [id number] 10/02/2024 Orestes Alex MD [address] [place] [id number] 12/25/2024 Orestes Alex Pneumonia J18.9 Orestes Alex MD [address] [id number] 12/31/2024 Orestes Alex MD [address] [id number] 02/02/2025 Orestes Alex Assessments Encounter Date Diagnosis [...] 01/09/2025 Elevated LFTs (ICD-1 0 - R79.89) 02/13/2025 Elevated liver enzym es (ICD-10 - R74.8) 02/13/2025 Encounter for administration of vaccine (ICD-10 - Z23) 03/17/2024 Type 2 diabetes mellitus without complication [...] Electrocardiogram (EKG) 03/31/2016 ECHO 05/23/2021 Liver Panel 02/13/2025 XR chest 2V 12/25/2024 Blood Urea Nitrogen 07/24/2024 Creatinine 07/24/2024 Next Appt Details Provider Name:Orestes Linda ier, 06/26/2025 07:15:00 AM, [address] [place] [address], [address], [phone], Provider Name:Orestes Linda ier, 07/03/2025 01:30:00 PM, [address] [place] [address], [address] [place] [address], [phone], Insurance Providers Payer Name Payer Address Payer Phone Subscriber Number Group Number Insured Name Patient Relationship to Insured Coverage Start Date Coverage End Date MEDICARE [employer] [place] [address] [place] [address] [id number] Delia Chávez Self - patient is the insured [employer] [place] [address] [place] [address] [id number] Delia Chávez Self - patient is the insured Medical (General) History Medical History History ICD Code Hypothyroidism type II diabetes hypercholesterolemia colonoscopy 2008 not to have any more; C olonoscopy 01/09/19 - Dr. Allen cardiac cath october 2016 entirely normal sitiglip is esteban
--- OUTSIDE RECORDS SUMMARY | 2025-02-13 12:38 | XMS_ITS | Patient Health Record ---
Author Organization [facility] Address [address] [place] [address] Care Team Providers Care Belt Back Operator Name Role Phone Orestes Alex MD Primary Care Provider Yakelin Hernández, Xenia Unavailable [phone] Allergies Allergen (clinical drug ingredient) Drug/Non Drug [...] Route Administration Date Status Comme nts Influenza Unknown 02/26/2017 Administered Influenza Unknown 02/09/2018 Administered Influenza Unknown 02/10/2019 Administered Influenza Unknown 02/10/2020 Administered Influenza Unknown 03/07/2021 Administered Influenza Unknown 01/09/2022 Administered Influenza Unknown 01/09/2023 Administered Influenza Unknown 02/10/2024 Administered COVID-19 Pfizer BioNTech Vaccine Unknown 02/21/2021 Administered 1st 07/13/20 2nd Dose: 08/06/20 Social History Tobacco Use: Social History Observation [...] Status W/U Status Risk Notes Problem Type II diabetes mellitus without complication (757588539) Type 2 diabetes mellitus without complications (E11.9) Active confirmed Vital Signs Blood pressure diastolic 67 mm Hg 12/04/2024 Height 5 ft 10 in in 12/04/2024 Blood pressure systolic 155 mm Hg 12/04/2024 Weight 147 lbs 12/04/2024 BMI 21.09 kg/m2 12/04/2024 Procedures Procedure Date Ordered Date Performed Result Body Sit e 42672-NCLOQZJ NAIL, 6 OR MORE 02/14/2024 N/A 03274-PHKIAVQ NAIL, 6 OR MORE 05/26/2024 N/A 07739-Gcczgnov Plate 05/26/2024 N/A 09952-Olsrxnbo Plate Each Additional 05/26/2024 N/A 05438-EWMLTUS NAIL, 6 OR MORE 12/04/2024 N/A Encounters Encounter Location Date Provider Diagnosis [address] [address] 02/14/2024 Exnia Black Tinea unguium B35.1 ; Type 2 diabetes mellitus without complications E11.9 ; Pain in right toe(s) M79.674 and Pain in left toe(s) M79.[address] [address] 05/26/2024 Xenia Black Tinea unguium B35.1 ; Ingrown nail L60.0 ; Type 2 diabetes mellitus without complications E11.9 ; Pain in right toe(s) M79.674 and Pain in left toe(s) M79.[address] [address] 12/04/2024 Xenia Black Tinea unguium B35.1 ; Type 2 diabetes mellitus without complications E11.9 ; Pain in right toe(s) M79.674 and Pain in left toe(s) M79.[address] [address] 02/14/2024 Xenia Black [address] [address] 12/04/2024 Xenia Black [address] [address] 01/26/2025 Xenia Black Assessments Encounter Date Diagnosis [...] X ray : Foot, right 3V 02/26/2013 76730-FNWCWGK NAIL, 6 OR MORE 04/30/2017 42605-HBMPAMV NAIL, 6 OR MORE 06/18/2017 98022-IHHCFRN NAIL, 6 OR MORE 02/28/2018 25330-EECFVWG NAIL, 6 OR MORE 05/27/2018 83312-CCRFJGS NAIL, 6 OR MORE 08/26/2018 19344-WBQZRXQ NAIL, 6 OR MORE 11/14/2018 84549-GMYBRVO NAIL, 6 OR MORE 02/13/2019 39668-XTWZUEM NAIL, 6 OR MORE 05/19/2019 45087-VTKBNHH NAIL, 6 OR MORE 10/16/2019 93959-HQXCGLY NAIL, 6 OR MORE 01/22/2020 10549-KDDSYKR NAIL, 6 OR MORE 04/26/2020 74886-INVEOBH NAIL, 6 OR MORE 08/02/2020 89122-BDLUWZV NAIL, 6 OR MORE 10/28/2020 14741-OANNNIH NAIL, 6 OR MORE 01/27/2021 55794-FCHLEUW NAIL, 6 OR MORE 05/09/2021 73616-AHWUESV NAIL, 6 OR MORE 08/25/2021 29664-NLVGMEP NAIL, 6 OR MORE 03/09/2022 05514-IRJKINO NAIL, 6 OR MORE 06/22/2022 00149-WCBVAVK NAIL, 6 OR MORE 10/23/2022 49493-AOXGEYZ NAIL, 6 OR MORE 11/28/2021 82778-PFSJVOM NAIL, 6 OR MORE 02/22/2023 14869-UAOMQWS NAIL, 6 OR MORE 07/19/2023 21151-RQXTMJM NAIL, 6 OR MORE 10/25/2023 48339-SZHGNJW NAIL, 6 OR MORE 02/14/2024 08009-AXRNZID NAIL, 6 OR MORE 05/26/2024 08728-NHGYSFS NAIL, 6 OR MORE 12/04/2024 07412-Llszzhuq Plate 05/26/2024 68986-Zbhqkmsa Plate 10/25/2023 00745-Gtyepzib Plate 07/19/2023 88724-Ibsvryxo Plate 02/22/2023 95811-Brwdgfxi Plate 11/28/2021 98260-Adlcyuiw Plate 08/25/2021 61223-Jgewhndp Plate 10/28/2020 94930-Tvcktowm Plate Each Additional 38803 I&D ABSCESS- SIMPLE,SINGLE 022 45049 I&D ABSCESS- SIMPLE,SINGLE 021 60531 I&D ABSCESS- SIMPLE,SINGLE 021 59078-Ylzo. Subungual Hematoma 9 Nail Panel 04/30/2017 Next Appt Details Provider Name:Xenia Hernández , 04/13/2025 03:30:00 PM, [address] [facility], [place], [address], Insurance Providers Payer Name Payer Address Payer Phone Subscriber Number Group Number Insured Name Patient Relationship to Insured Coverage Start Date Coverage End Date Medicare National [employer] [address] [place] [address] [id number] Richard Chávez Self - patient is the insured [address] [facility] [address] [place] [address] [id number] Richard Chávez Self - patient is the [...]
--- OUTSIDE RECORDS SUMMARY | 2025-02-27 20:00 | XMS_ITS | Clinical Summary ---
Author Organization Unknown Care Team Providers Care Resident Services Coordinator Name Role Phone SHERRELL DAVILA, YELENA Unavailable Unavailable MATTIE RN, CARI Unavailable Unavailalen SCHMITT RN, GARCÍA Unavailable Unavailable SANDY INGJENNA BAILEYN, CHELSEA Unavailable Unavai lable Payers Payer Name Policy Type Policy Number Effective Date Expira tion Date MEDICARE - [facility]PR - [facility] [id number] Problems Condition Name Condition Details Condition Category [...] OF NICOTINE DEPENDENCE Active 06-11 00:00: 00 [facility]URSING HOME (CURRENT) USE OF ANTICOAGULAN TS Active 06-11 00:00: 00 [employer]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) USE OF ORAL HYPOGLYCEMIC DRUGS Active [...] 12-27 00:00: 00 12-31 00:00 :00 No [id number] Per instruc tions Per instructio ns (route: oral) Med Classific ation: Anti-Infe ctive Agents doxycycline hyclate 100 mg tablet 12-27 00:00: 00 12-31 00:00 :00 No [id number] Per instruc tions Per instructio ns (route: oral) Med Classific ation: Anti-Infe ctive Agents Breo Ellipta 100 mcg-25 mcg/dose powder for inhalation 12-26 00:00: 00 12-31 00:00 :00 No [id number] Per instruc tions Per instructio ns (route: inhalation ) Med Classific ation: Respirato ry Therapy Agents atorvastati n 80 mg tablet 12-22 00:00: 00 12-31 00:00 :00 No [id number] Per instruc tions ONCE DAILY Per instructio ns ONCE DAILY (route: oral) Med Classific ation: Cardiovas cular Therapy Agents DILT-XR 180 mg capsule, extended release 12-14 00:00: 00 12-31 00:00 :00 No [id number] Per instruc tions EVERY DAY Per instructio ns EVERY DAY (route: oral) Med Classific ation: Cardiovas cular Therapy Agents ascorbic acid (vitamin C) 1,000 mg capsule 12-28 00:00: 00 Yes [id number] 1 capsule DAILY 1 capsule DAILY (route: oral) Med Classific ation: Electroly te Balance-N utritiona l Products atorvastati n 80 mg tablet 12-28 00:00: 00 Yes [id number] 1 tablet BEDTIME 1 tablet BEDTIME (route: oral) Med Classific ation: Cardiovas cular Therapy Agents cefuroxime axetil 500 mg tablet 12-28 00:00: 00 01-07 23:59 :00 No [id number] 1 tablet 2 TIMES DAILY 1 tablet 2 TIMES DAILY (route: oral) Med Classific ation: Anti-Infe ctive Agents cholecalcif keegan (vitamin D3) 50 mcg (2,000 unit) capsule 12-28 00:00: 00 Yes [id number] 1 capsule BEDTIME 1 capsule BEDTIME (route: oral) Med Classific ation: Electroly te Balance-N utritiona l Products coenzyme Q10 100 mg capsule 12-28 00:00: 00 Yes [id number] 1 capsule DAILY 1 capsule DAILY (route: oral) Med Classific ation: Alternati ve Therapy diltiazem ER 180 mg capsule,24 hr,extended release 12-28 00:00: 00 Yes [id number] 1 capsule DAILY 1 capsule DAILY (route: oral) Med Classific ation: Cardiovas cular Therapy Agents doxycycline hyclate 100 mg tablet 12-28 00:00: 00 01-07 23:59 :00 No [id number] 1 tablet 2 TIMES DAILY 1 tablet 2 TIMES DAILY (route: oral) Med Classific ation: Anti-Infe ctive Agents Dry Eye Relief (PEG 400) 1 % drops 12-28 00:00: 00 Yes [id number] 1 drops 3 TIMES DAILY 1 drops 3 TIMES DAILY (route: ophthalmic (eye)) Med Classific ation: Ophthalmi c Agents Eliquis 2.5 mg tablet 12-28 00:00: 00 Yes [id number] 1 tablet 2 TIMES DAILY 1 tablet 2 TIMES DAILY (route: oral) Med Classific ation: Hematolog ical Agents ferrous sulfate 325 mg (65 mg iron) tablet 12-28 00:00: 00 Yes [id number] 1 tablet DAILY 1 tablet DAILY (route: oral) Med Classific ation: Electroly te Balance-N utritiona l Products furosemide 40 mg tablet 12-28 00:00: 00 Yes [id number] 1 tablet DAILY 1 tablet DAILY (route: oral) Med Classific ation: Cardiovas cular Therapy Agents glipizide 5 mg tablet 12-28 00:00: 00 Yes [id number] 1 tablet DAILY 1 tablet DAILY (route: oral) Med Classific ation: Endocrine levothyroxi ne 125 mcg tablet 12-28 00:00: 00 Yes [id number] 1 tablet DAILY 1 tablet DAILY (route: oral) Med Classific ation: Endocrine metformin 500 mg tablet 12-28 00:00: 00 Yes [id number] 2 tablet 2 TIMES DAILY 2 tablet 2 TIMES DAILY (route: oral) Med Classific ation: Endocrine metoprolol succinate ER 25 mg tablet,exte nded release 24 hr 12-28 00:00: 00 Yes [id number] 1 tablet BEDTIME 1 tablet BEDTIME (route: oral) Med Classific ation: Cardiovas cular Therapy Agents omega-3 300 mg-dha 120 mg-epa 180 mg-fish oil 1,000 mg capsule 12-28 00:00: 00 Yes [id number] 1 capsule DAILY 1 capsule DAILY (route: oral) Med Classific ation: Cardiovas cular Therapy Agents sitagliptin 50 mg tablet 12-28 00:00: 00 Yes [id number] 1 tablet DAILY 1 tablet DAILY (route: oral) Med Classific ation: Endocrine tamsulosin 0.4 mg capsule 12-28 00:00: 00 Yes [id number] 1 capsule DAILY 1 capsule DAILY (route: oral) Med Classific ation: Genitouri nary Therapy Immunizations Ordered Immunization Name Filled Immunization Name Date Status Comments Refusal Reason COVID BOOSTER, COVID BOOSTER 2024-03-14 00:00:00 INFLUENZA, TIV (INACTIVATED) 2024-03-14 00:00:00 Vital Signs Vital Name Observation Time Observation Value Commen ts Temperature 2025-02-10 12:13:00.000 98.5 [degF] Temperature 2025-02-04 10:36:00.000 97.8 [degF] Temperature 2025-01-28 10:40:00.000 98.1 [degF] Temperature 2025-01-20 12:18:00.000 97.9 [degF] Temperature 2025-01-13 08:23:00.000 97.7 [degF] Temperature 2025-01-09 11:19:00.000 97 [degF] Temperature 2024-12-31 10:13:00.000 98 [degF] BMI (%) 2024-12-31 10:13:00.000 21 kg/m2 Height 2024-12-31 10:13:00.000 70 [in_us] Pulse 2025-02-10 12:13:00.000 98 /min Pulse 2025-02-04 10:36:00.000 64 /min Pulse 2025-01-28 10:40:00.000 60 /min Pulse 2025-01-20 12:18:00.000 60 /min Pulse 2025-01-13 08:23:00.000 64 /min Pulse 2025-01-09 11:19:00.000 60 /min Pulse 2024-12-31 10:13:00.000 63 /min O2 Saturation (%) 2025-02-10 12:13:00.000 95 % O2 Saturation (%) 2025-02-04 12:46:00.000 90 % O2 Saturation (%) 2025-01-28 10:40:00.000 95 % O2 Saturation (%) 2025-01-20 12:18:00.000 96 % O2 Saturation (%) 2025-01-13 08:23:00.000 96 % O2 Saturation (%) 2025-01-09 11:19:00.000 95 % O2 Saturation (%) 2024-12-31 10:13:00.000 95 % Respirations 2025-02-10 12:13:00.000 18 /min Respirations 2025-02-04 10:36:00.000 20 /min Respirations 2025-01-28 10:40:00.000 20 /min Respirations 2025-01-20 12:18:00.000 18 /min Respirations 2025-01-13 08:23:00.000 18 /min Respirations 2025-01-09 11:19:00.000 19 /min Respirations 2024-12-31 10:13:00.000 18 /min Weight (lbs) 2025-02-10 12:13:00.000 154 [lb_av] Weight (lbs) 2025-02-04 10:36:00.000 163 [lb_av] Weight (lbs) 2025-01-28 10:40:00.000 162 [lb_av] Weight (lbs) 2025-01-20 12:18:00.000 153 [lb_av] Weight (lbs) 2025-01-13 08:23:00.000 147 [lb_av] Weight (lbs) 2025-01-09 11:19:00.000 152 [lb_av] Weight (lbs) 2024-12-31 10:13:00.000 152 [lb_av] Systolic Blood Pressure 2025-02-10 12:13:00.000 120 mm [Hg] Systolic Blood Pressure 2025-02-04 10:36:00.000 116 mm [Hg] Systolic Blood Pressure 2025-01-28 10:40:00.000 110 mm [Hg] Systolic Blood Pressure 2025-01-20 12:18:00.000 112 mm [Hg] Systolic Blood Pressure 2025-01-13 08:23:00.000 108 mm [Hg] Systolic Blood Pressure 2025-01-09 11:19:00.000 102 mm [Hg] Systolic Blood Pressure 2024-12-31 10:13:00.000 104 mm [Hg] Diastolic Blood Pressure 2025-02-10 12:13:00.000 [...] MAINTAIN SITUATIONAL AWARENESS AND WILL NOTIFY CLINICAL SENIOR MASTER SCHEDULER AND PHYSICIAN/PROVIDER WITH ANY CHANGE IN CONDITION. [code = SKILLED NURSE TO PERFORM ENVIRONMENTAL SAFETY RISK ASSESSMENT AND FALL RISK ASSESSMENT AND PROVIDE INSTRUCTION TO IMPLEMENT ENVIRONMENTAL SAFETY AND FALL PREVENTION STRATEGIES THROUGHOUT THE CERTIFICATION PERIOD. SKILLED NURSE WILL MAINTAIN SITUATIONAL AWARENESS AND WILL NOTIFY CLINICAL SENIOR MASTER SCHEDULER AND PHYSICIAN/PROVIDER WITH ANY CHANGE IN CONDITION.] [...] <paragraph>[Visit Date: 2024 by CARI PHELPS RN]:</paragraph><paragraph>SNV 02/10/25</paragraph><paragraph></paragraph><paragraph>1. ABNORMAL FINDINGS/SIGNIFICANT CHANGES: TRACE EDEMA SPRING LE, </paragraph><paragraph></paragraph><paragraph>2. CARE COORDINATION DETAILS: NONE NEEDED</paragraph><paragraph></paragraph><paragraph>3. SKILLED PROCEDURE PERFORMED THIS VISIT: NONE NEEDED THIS VISIT</paragraph><paragraph></paragraph><paragraph>4. NEXT PHYSICIAN/PROVIDER APPT: DENTIST 02/10/25</paragraph><paragraph></paragraph><paragraph>5. PLAN/FOLLOW-UP NEEDED FOR NEXT VISIT: DISEASE MANAGEMENT EDUCATION FALL PREVENTION</paragraph><paragraph></paragraph><paragraph>ADDRESS ABOVE APPROPRIATE IN NARRATIVE BELOW: PATIENT ALERT ORIENTATED X3 REPORTS HAVING AN APPOINTMENT TODAY WITH THE DENTIST PATIENT TODAY DENIES ANY FEVERS CHILLS NAUSEA VOMITING DIARRHEA, FALLS ED VISIT HOSPITALIZATION OR NEW MEDICATIONS SINCE LAST VISIT. SN ASSESSMENT PATIENT'S LUNG SOUNDS DIMINISHED BILATERAL TRACE EDEMA TO LOWER EXTREMITY PATIENT EDUCATED ON ELEVATING LEGS WHENEVER POSSIBLE PATIENT VERBALIZED UNDERSTANDING WELL FUROSEMIDE USE AND SIDE EFFECTS. BOWEL SOUNDS X4 LAST BOWEL MOVEMENT TODAY ABDOMEN SOFT NONTENDER SKIN DRY INTACT NO OPEN AREAS OR BRUISES. PATIENT EDUCATED ON CALLING [facility] FOR ANY CONCERNS OR CHANGE IN CONDITION WELL NEXT SN VISIT PATIENT VERBALIZED UNDERSTANDING AND AGREES WITH PLAN</paragraph> Encounters Start Date/Time End Date/Time Encounter Type Admission Type Attending Clinicians Care Facility Care Department Encounter ID Discharge Date Discharge Status Discharge Condition Discharge Reason Percent Goals Met 2024-12-31 00:00:00 2025-02-28 00:00:00 Outpatient NEW ADMISSION GARCÍA SCHMITT [facility] [id number] 42.86
== END 2025-02-13 11:49 | disposition home or self-care (01) ==
LOC: HO.LNP 11:48
PROVIDERS: Visit Provider Internal Medicine
DX: R74.8 Abnormal levels of other serum enzymes (principal)
CPT/HCPCS: 80076

== ENCOUNTER 2025-02-17 11:12 | Outpatient (REF) | payer MEDICARE, SELFPAY ==
--- OUTSIDE RECORDS SUMMARY | 2024-09-01 09:00 | XMS_ITS ---
Author Organization [facility] Address [address] [place] [address] Care Team Providers Care Owner Professional Engineer Name Role Phone Orestes Alex MD Primary Care Provider Xenia Rojas [phone] Mark Encounters Encounter Location Date Provider Diagnosis [address] [address] 09/01/2024 Xeniajessi Hernández Plan Of Treatment Next Appt Details Provider Name:Xenia Hernández , 04/13/2025 03:30:00 PM, [address] [place] [address], [phone], Progress Notes * Richard CAT WDOB:1935 (89 yo M)Acc No.[id number]:09/01/2024 Progress Note Patient: Richard HERRERA Provider: Sherita Hernández DPM :1935 A ge:89 Y S ex:Male Date:09/01/2024 [address] [place] Pcp:Orestes Alex MD Subjective: * Chief Complaints: [...] 09/01/2024 Generated for Morelia Ortega on: 0 02/17/2025 01:37 PM EDT
[2024-12-23 15:15] VITALS: BP 122/60; BP 134/60; BMI 24.7
--- OUTSIDE RECORDS SUMMARY | 2025-01-09 07:45 | XMS_ITS ---
Author Organization Orestes Alex MD Address [address] [place], [place] [phone] Care Team Providers Care Recep Name Role Phone Orestes Alex Primary Care [...] Status Risk Notes Problem Congestive heart failure (48514332) CHF (congestive heart failure) (I50.9) Active confirmed Vital Signs Blood pressure systolic 122 mm Hg 01/10/20 25 Blood pressure diastolic 64 mm Hg 025 Height 67 in 01/09/2025 Weight 159 lbs 01/09/2025 BMI 24.9 kg/m2 01/09/2025 weight is up 5 pounds since Encounters Encounter Location Date Provider Diagnosis Orestes Alex MD [address] [place] [address] Drive [address] [place], [place] [phone] 01/09/2025 Orestes Alex Type 2 diabetes mellitus [...] Follow Up: 10 days, Reason: Provider Name:Orestes Venancio Maddi ier, 06/26/2025 07:15:00 AM, [address] [place] [address] Drive, [address], [place], [place], [phone], Provider Name:Orestes Craft Belenzi ier, 07/03/2025 01:30:00 PM, [address] [facility], [address], [place], [place], [phone], Progress Notes * Delia CAT WDOB:1935 (89 yo M)Acc No.[id number]:01/09/2025 Patient: Delia HERRERA Provider: Nicolette Alex MD :1935 A ge:89 Y S ex:Male Date:01/09/2025 Address:[address] [place] [address], [id number] Subjective: * Chief Complaints: * P H/TCM [...] BP:122/64, Wt-k.12. weight is up 5 pounds [id number]. * Examination: G eneral Examination: GENERAL APPEARANCE: [...] 0 01/09/2025 Generated for Morelia martell/Bernardino/Zhangsmitting on: 0 02/17/2025 01:38 PM EDT History and Physical Notes * [...]
--- OUTSIDE RECORDS SUMMARY | 2025-01-20 09:45 | XMS_ITS ---
Author Organization Orestes Alex MD Address [address] [place], [place] [phone] Care Team Providers Care Web Development Intern Name Role Phone Orestes Alex Primary [...] Date Provider Diagnosis Orestes Alex MD [address] [place] [address] [place] [phone] 01/20/2025 Orestes Alex Type 2 diabetes mellitus [...] LAT 02/17/2025 Next Appt Details Provider Name:Orestes javier, 06/26/2025 07:15:00 AM, [address] [facility] [address], [address], [place], [place], [phone], Provider Name:Orestes Linda ier, 07/03/2025 01:30:00 PM, [address] [facility] [address], [address], [place], [place], [phone], Progress Notes * Delia CAT WDOB:1935 (89 yo M)Acc No.[id number]:01/20/2025 Progress Notes Patient: Delia HERRERA Provider: Nicolette Alex MD :1935 A ge:89 Y S ex:Male Date:01/20/2025 Address:[address] [place] [address], [facility] [place], [id number] Subjective: * Chief Complaints: * 1 0 [...] 01/20/2025 Generated for Morelia martell/Bernardino/Reynaitting on: 0 02/17/2025 01:37 PM EDT History and Physical Notes * [...]
--- OUTSIDE RECORDS SUMMARY | 2025-02-02 09:35 | XMS_ITS ---
Author Organization Orestes Alex MD Address [address] [place] [phone] Care Team Providers Care Gum Sprayer Name Role Phone Orestes Alex Primary Care Provider REASON FOR VISIT bilateral ankle edema x 1 day Encounters Encounter Location Date Provider Diagnosis Orestes Alex MD [address] [place] [address] [place] [phone] 02/02/2025 Orestes Alex Plan Of Treatment Next Appt Details Provider Name:Orestes javier, 06/26/2025 07:15:00 AM, [address] [place] [address], Suite [facility], [place], [place], [phone], Provider Name:Orestes javier, 07/03/2025 01:30:00 PM, [address] [place] [address], Suite [facility], [place], [place], [phone], Progress Notes * Delia CAT WDOB:1935 (89 yo M)Acc No.[id number]:02/02/2025 Patient: Delia HERRERA :1935 A ge:89 Y S ex:Male Address:[address] [place] [address], [place] [address] * true * Date: Generated for Morelia martell/Bernardino/Zhangsmitting on: 0 02/17/2025 01:37 PM EDT
--- OUTSIDE RECORDS SUMMARY | 2025-02-13 05:00 | XMS_ITS ---
Author Organization Orestes Alex MD Address [address] [place], [place] [phone] Care Team Providers Care Green Chainer Name Role Phone Orestes Alex Primary Care Provider Results Component Value Reference Range Notes Liver Panel Reviewed date:02/13/2025 12:45:26 PM Interpretation: Performing Lab:[facility], [address] [place] [phone] Notes/Report: Bilirubin Total 0.9 0.0-1.0 mg/dL Bilirubin [...] Alex MD [address] [place], [place] [id number] 02/13/2025 Orestes Alex Elevated liver enzym es R74.8 and Encounter for administration of vaccine Z23 Assessments Encounter Date Diagnosis (ICD Code) Assessment Notes Treatment Notes Treatment Clinical Notes Section Notes 02/13/2025 Elevated liver enzymes (ICD-10 - R74.8) 02/13/2025 Encounter for administration of vaccine (ICD-10 - Z23) Plan Of Treatment Next Appt Details Provider Name:Orestes javier, 06/26/2025 07:15:00 AM, [address], [address], [place], [place], [phone], Provider Name:Orestes javier, 07/03/2025 01:30:00 PM, [address], [address], [place], [place], [phone], Progress Notes * Delia CAT WDOB:1935 (89 yo M)Acc No.[id number]:02/13/2025 Progress Note Patient: Delia HERRERA Provider: Nicolette Alex MD :1935 A ge:89 Y S ex:Male Date:02/13/2025 Address:[address] [place] [address], [place], [place] Subjective: * Chief Complaints: * 1 . [...] * Procedure Codes: 3 6415 VENIPUNCT, ROUTINE*, 18553 FLU VACC PRSV FREE INC ANTIG, G0008 ADMN FLU VAC NO FEE SCHED SAME DAY * * The named appointment provid er may or may not be the originator of this progress note, and it is not deemed complete until electronically signed by the appointment provider. Sign off status: Pending * Provider: Nicolette Alex MD Date: 0 02/13/2025 Generated for Morelia martell/Bernardino/Delia on: 0 02/17/2025 01:36 PM EDT
--- NOTE | ~2025-02-17 | XR_ITS ---
EXAMINATION: XR CHEST 2 VIEWS HISTORY: PNEUMONIA COMPARISON: Comparison is made with the prior examination dated 01/09/2025. FINDINGS: PA and lateral views of the chest are submitted. There has been further improvement in the SVC and airspace opacity in the left upper lobe. Patchy densities persist in this region. There are no new increased interstitial markings bilaterally suggestive of interstitial edema. There may be tiny bilateral pleural effusions. No pneumothorax. The heart is mildly enlarged. The patient is status post valve replacement. There is degenerative disc disease of the spine. XR/XR chest 2V IMPRESSION: 1. Improvement in previously seen left upper lobe pneumonia. Patchy densities persist in this region. Continued follow-up is recommended. 2. Probable new mild pulmonary interstitial edema. Probable trace bilateral pleural effusions. Electronically signed by: Mario Moore MD 02/17/2025 12:10 PM EDT
--- OUTSIDE RECORDS SUMMARY | 2025-02-17 09:00 | XMS_ITS ---
Author Organization Orestes Alex MD Address [address] [place] [phone] Care Team Providers Care Marine Geologist Name Role Phone Orestes Alex Primary Care Provider [phone] REASON FOR VISIT Repeat CXR Encounters Encounter Location Date Provider Diagnosis Orestes Alex MD [address] [place] [id number] 02/17/2025 Orestes Alex Pneumonia J18.9 Assessments Encounter [...] 07:15:00 AM, [address], [address], [place], [phone], Provider Name:Orestes Linda ier, 07/03/2025 01:30:00 PM, [address], [address], [place], [phone], Progress Notes * Delia CAT WDOB:1935 (89 yo M)Acc No.[id number]:02/17/2025 Patient: Yen NOYDelia Paula :1935 A ge:89 Y S ex:Male Address:[address] [place] [address], [place] [address] Subjective: * Chief Complaints: * R epeat CXR * Medical History: * Surgical History: * Hospitalization/Major Diagno stic Procedure: * Medications: Objective: * Vitals: * Physical Examination: Assessment: * Assessment: 1. Venancio lee - J18.9 Plan: * Treatment: * Procedure Codes: * true * Date: Generated for Morelia martell/Bernardino/eTransmitting on: 0 02/17/2025 01:38 PM EDT
--- OUTSIDE RECORDS SUMMARY | 2025-02-17 13:37 | XMS_ITS | Patient Health Record ---
Author Organization [facility] Address [address] [place] [phone] Care Team Providers Care Senior Staff Specialized Employment Name Role Phone Orestes Alex MD Primary Care Provider Mario Way Unavailable [phone] Allergies Allergen (clinical drug ingredient) Drug/Non Drug [...] Problem Status W/U Status Risk Notes Problem [id number] Rectal bleeding (K62.5) Active confirmed Problem 85741681 Change in bowel function (R19.4) Active confirmed Problem Anemia (346158528) Anemia (D64.9) Active confirmed Problem 89032911 Constipation, unspecified constipation type (K59.00) Active confirmed Problem 111627288 Anemia, unspecified type (D64.9) Active confirmed Plan [...] Date MEDICARE OF [place] [address] [place] [address] [id number] DELIA CAT Self - patient is the insured [employer] CLAIMS [address] [place] [address] [id number] DELIA CAT Self - patient is the insured Medical (General) History Medical History History ICD Code Colonoscopy 10-06-2007 and 97--negative except diverticulosis and internal hemorrhoids; 3 negative Hemoccult cards in 01/2016 Hyperlipidemia BPH Denies RI,CVA,Lung disease,renal disease NIDDM Hypothyroidism Colonoscopy 01/2019 several small tubular adenomas removed Surgical History Surgery Date(Month/Year) Thumb surgery 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
--- OUTSIDE RECORDS SUMMARY | 2025-02-17 13:37 | XMS_ITS | Patient Health Record ---
Author Organization Orestes Alex MD Address [address] [place], [place] [id number] Care Team Providers Care Internet Security Specialist Name Role Phone Orestes Alex Primary Care Provider Allergies No Known Allergies Results Component Value Reference Range Notes Hemoglobin A1c Reviewed date:12/04/2024 01:29:14 PM Interpretation: Performing Lab: Notes/Report: Hemoglobin A1c 7.5 Complete Blood Count Auto Di ff Reviewed date:06/20/2024 05:40:23 PM Interpretation: Performing Lab:[facility], [address] [place] [phone] Notes/Report: White Blood Count 7.8 4.8-10.8 X10*3/uL [...] NRBC Abs Auto 0.000 0.0-0.012 X10*3/uL Comprehensive Cass. Panel Fa st Reviewed date:06/27/2024 01:10:00 PM Interpretation:ZELALEM 06/27/24 Performing Lab:[facility], [address] [place] [phone] Notes/Report: Sodium 142 135-145 mmol/L Potassium 4.3 [...] Panel Reviewed date:06/20/2024 05:16:22 PM Interpretation: Performing Lab:[address] [address] Notes/Report: Triglycerides 117 <150 mg/dL Desirable Triglyceride: [...] (Free>4and<10) Reviewed date:06/20/2024 05:11:58 PM Interpretation: Performing Lab:[address] [address] Notes/Report: PSA,Total (Free>4and<10) 0.38 0.00-4.00 ng/mL A [...] Random Reviewed date:06/20/2024 05:11:49 PM Interpretation: Performing Lab:[address] [address] Notes/Report: Creatinine Urine 93.86 Microalbumin Urine 107.0 Microalbum/Creatinine Ratio Ur 113.9 <30 ug/mg cr Albumin/Creatinine Ratio Reference Ranges: Normal: < 30 ug/mg creatinine Microalbuminuria: 30 - 300 ug/mg creatinine Clinical Albuminuria: > 300 ug/mg creatinine Hemoglobin A1c Reviewed date:06/20/2024 05:12:06 PM Interpretation: Performing Lab:[address] [address] Notes/Report: Hemoglobin A1c % 7.3 <6.0 % [...] average glucose, using the formula of the V4Y-Dmxvidj Average Glucose study (ADAG), Diabetes Care, Vol.31,#8, Jan. 2007 UA ClnCatch+Micro w/rflx Cul t Reviewed date:06/20/2024 05:38:57 PM Interpretation: Performing Lab:[address] [address] Notes/Report: Urine, Clean Catch Color Urine Yellow Appearance Urine Clear PH 5.5 5.0-9.0 Glucose Urine UA Negative Negative mg/dL Urine Blood Negative Negative Specific Bassett - Urine 1.020 1.005-1.025 Urine Protein Trace Neg-Trace mg/dL Urine Ketones Negative Negative mg/dL Nitrite Urine Negative Negative Leukocyte Esterase Urine Negative Negative RBC Urine 0-2 0-2 /HPF WBC Urine 0-5 0-5 /HPF Squamous Epithelial Cell Urine 0-2 0-2 /HPF Bacteria Urine None Seen None Seen Hyaline Casts Urine 0-2 0-2 /LPF Liver Panel Reviewed date:12/01/2024 05:23:44 PM Interpretation: Performing Lab:[address], [place] [address] Notes/Report: Bilirubin Total 0.9 0.0-1.0 mg/dL Bilirubin Direct 0.4 0.0-0.5 mg/dL Aspartate Amino Transferase 41 5-37 U/L Alanine Aminotransferase 23 0-40 U/L Total Protein 7.3 6.5-8.0 g/dL Albumin Level 3.9 3.5-5.0 g/dL Alkaline Phosphatase 195 39-117 U/L Lipid Panel with Reflex Reviewed date:12/02/2024 08:16:58 AM Interpretation: Performing Lab:[address] [address] Notes/Report: Triglycerides 127 <150 mg/dL Desirable Triglyceride: [...] Panel Reviewed date:02/13/2025 11:34:17 AM Interpretation:02-13-2025 Performing Lab:[facility], [address] [place] [phone] Notes/Report: Bilirubin Total 0.7 0.0-1.0 mg/dL Bilirubin Direct 0.4 0.0-0.5 mg/dL Aspartate Amino Transferase 87 5-37 U/L Alanine Aminotransferase 78 0-40 U/L Total Protein 6.6 6.5-8.0 g/dL Albumin Level 3.4 3.5-5.0 g/dL Alkaline Phosphatase 154 39-117 U/L Liver Panel Reviewed date:02/13/2025 12:45:26 PM Interpretation: Performing Lab:[facility], [address] [place] [phone] Notes/Report: Bilirubin Total 0.9 0.0-1.0 mg/dL Bilirubin [...] date:10/29/2024 03:54:47 PM Interpretation: Performing Lab: Notes/Report: [address] [address] XRay Report Signed Patient: Delia Chávez MR#: [id number] : 1935 Acct:[id number] Age/Sex: 89 / M ADM Date: 10/28/24 Loc: DYLAN Attending Dr: Cm Rivas NP Ordering Physician: Cm Rivas NP Date of Service: 10/28/24 Procedure(s): XR chest 2V Accession Number(s): [id number] cc: Orestes Alex MD; Cm Rivas NP [...] 10/28/24 1550 DD/ 1536 TD/TT: 10/28/24 1542 Welding Robot Operator: [place] [address] XRay Report Signed Patient: Delia Chávez MR#: [id number] : 1935 Acct:[id number] Age/Sex: 89 / M ADM Date: 10/28/24 Loc: HOLEILA Attending Dr: Cm Rivas NP Ordering Physician: Cm Rivas NP Date of Service: 10/28/24 Procedure(s): XR [facility] 2V Accession Number(s): [id number] cc: Orestes Alex MD; Cm Rivas NP [...] 10/28/24 1550 DD/ 1536 TD/TT: 10/28/24 1542 Welding Robot Operator: Aubree Morales Reviewed date:12/01/2024 12:26:31 PM Interpretation: Performing Lab:[facility], [address] [place] [phone] Notes/Report: Aubree Morales See Note Specimen held untested for 24 hours; Call to request Chemistry testing. Complete Blood Count Auto Di ff Reviewed date:12/24/2024 03:54:40 PM Interpretation: Performing Lab:[facility], [address] [place] [phone] Notes/Report: White Blood Count 13.8 4.8-10.8 X10*3/uL [...] INR Reviewed date:12/25/2024 12:13:33 PM Interpretation: Performing Lab:[facility], [address] [place] [phone] Notes/Report: Prothrombin Time 16.4 10.9-12.4 SEC INTERNATIONAL [...] Time Reviewed date:12/25/2024 12:56:06 PM Interpretation: Performing Lab:[facility], [address] [place] [phone] Notes/Report: Partial Thromboplastin Time 37.1 26.0-36.8 SEC For information regarding the monitoring of direct thrombin inhibitors, please refer to Pharmacy. Comprehensive Met. Panel Reviewed date:12/24/2024 04:05:16 PM Interpretation: Performing Lab:[facility], [address] [place] [phone] Notes/Report: Sodium 132 135-145 mmol/L Potassium 4.2 [...] Acid Reviewed date:12/25/2024 12:13:13 PM Interpretation: Performing Lab:[address] [address] Notes/Report: Lactic Acid 3.1 0.5-2.0 mmol/L Critical value for test(s): LACTA Results called to and read back by: SHUN Person calling: ANA Date: 12.24.24 Time: 1919 Magnesium Reviewed date:12/24/2024 03:54:51 PM Interpretation: Performing Lab:[address] [address] Notes/Report: Magnesium 1.6 1.6-2.6 mg/dL Troponin-I High Sensitivity Reviewed date:12/24/2024 04:02:15 PM Interpretation: Performing Lab:[address] [address] Notes/Report: Troponin-I High Sensitivity 78.5 <3.5-35.0 ng/L The Joseph high sensitivity Troponin-I results should be used in conjunction with other diagnostic information such as ECG, clinical observations and information, and patient symptoms to aid in the diagnosis of CT. B Type Natriuretic Peptide Reviewed date:12/24/2024 04:01:59 PM Interpretation: Performing Lab:[address] [address] Notes/Report: B Type Natriuretic Peptide 227 <100 pg/mL SARS-CoV2/FLU/RSV Reviewed date:12/25/2024 12:13:46 PM Interpretation: Performing Lab:[address] [address] Notes/Report: Influenza A PCR NEGATIVE Negative Influenza [...] by authorized laboratories. Testing performed on the [employer] GeneXpert utilizing real-time RT-PCR. All SARS CoV2 and positive influenza A/B results are reported to [facility]. Blood Culture (First) Reviewed date:12/30/2024 12:35:51 PM Interpretation: Performing Lab:[address] [address] Notes/Report: Blood Culture (First) No growth after 5 days. Blood Culture (Second) Reviewed date:12/30/2024 12:38:40 PM Interpretation: Performing Lab:[address] [address] Notes/Report: Blood Culture (Second) No growth after 5 days. Lactic Acid-LAB USE ONLY Reviewed date:12/25/2024 12:11:17 PM Interpretation: Performing Lab:[address] [address] Notes/Report: Lactic Acid-LAB USE ONLY 2.2 0.5-2.0 mmol/L Critical value for test(s): LACTA Results called to and read back by: OMARWYen Person calling: ANA Date: 12.24.24 Time: 2245 Venous Blood Gases - POC Reviewed date:12/24/2024 03:41:59 PM Interpretation: Performing Lab:[address] [address] Notes/Report: VBG pH 7.36 7.32-7.43 METER #: [id number] additional_comment: Cb rojascr VBG pCO2 46 METER #: [id number] additional_comment: Cb rojascr VBG pO2 34 METER #: [id number] additional_comment: Cb rojascr VBG Base Excess 1.2 METER #: [id number] additional_comment: Cb rojascr VBG HCO3 26 22-26 mmol/L METER #: [id number] additional_comment: Cb rojascr VBG O2 % Saturation 41.0 METER #: [id number] additional_comment: Cb rojascr D Dimer High Sensitivity Reviewed date:12/25/2024 12:13:21 PM Interpretation: Performing Lab:[facility], [address] [place] [phone] Notes/Report: D Dimer High Sensitivity 469 D-DIMER [...] date:12/25/2024 12:14:35 PM Interpretation: Performing Lab: Notes/Report: [address] [address] [address] Scan Report Signed Patient: Delia Chávez MR#: [id number] : 1935 Acct:[id number] Age/Sex: 89 / M ADM Date: 12/24/24 Loc: .ED Attending Dr: Ordering Physician: Raul Chery MD Date of Service: 12/24/24 Procedure(s): CT chest wo IV con Accession Number(s): [id number] cc: Orestes Alex MD; Raul Chery MD Report Number: [id number]: Total DLP = 291.00 mGy-cm CLINICAL HISTORY: Left lung mass? CT chest without contrast Comparison: CR/SR - XR CHEST 1 VIEW - 12/24/24 15:46 EDT CR/DE/SR - XR CHEST 2V - 10/28/24 15:46 [...] in OV> 12/24/242127 DD/ 25 TD/TT: 12/24/242125 Welding Robot Operator: [place] [address] [address] Scan Report Signed Patient: Delia Chávez MR#: [id number] : 1935 Acct:[id number] Age/Sex: 89 / M ADM Date: 12/24/24 Loc: .ED Attending Dr: Ordering Physician: Raul Chery MD Date of Service: 12/24/24 Procedure(s): CT [facility] wo IV con Accession Number(s): [id number] cc: Orestes Alex MD; Raul Chery MD Report Number: [id number]: Total DLP = 291.00 mGy-cm CLINICAL HISTORY: Le ft lung mass? CT chest without contrast Comparison: CR/SR - XR CHEST 1 VIEW - 12/24/24 15:46 EDT CR/DE/SR - XR CHEST 2V - 10/28/24 15:46 [...] in OV> 12/24/242127 DD/ 25 TD/TT: 12/24/242125 Welding Robot Operator: XR chest 1V Reviewed date:12/24/2024 04:10:13 PM Interpretation: Performing Lab: Notes/Report: [address] [address] XRay Report Signed Patient: Delia Chávez MR#: [id number] : 1935 Acct:[id number] Age/Sex: 89 / M ADM Date: 12/24/24 Loc: .ED Attending Dr: Ordering Physician: Generic ED Physician Date of Service: 12/24/24 Procedure(s): XR chest 1V Accession Number(s): [id number] cc: Orestes Alex MD; Generic ED Physician [...] 12/24/24 1550 DD/ 1446 TD/TT: 12/24/24 1544 Welding Robot Operator: [address] [address] XRay Report Signed Patient: Delia Chávez MR#: [id number] : 1935 Acct:[id number] Age/Sex: 89 / M ADM Date: 12/24/24 Loc: HO.ED Attending Dr: Ordering Physician: Generic ED Physician Date of Service: 12/24/24 Procedure(s): XR [facility] [facility] 1V Accession Number(s): [id number] cc: Orestes Alex MD; Generic ED Physician [...] 12/24/24 1550 DD/ 1446 TD/TT: 12/24/24 1544 Welding Robot Operator: Complete Blood Count Auto Di ff Reviewed date:12/25/2024 05:07:41 PM Interpretation: Performing Lab:[facility], [address] [place] [phone] Notes/Report: White Blood Count 13.0 4.8-10.8 X10*3/uL [...] Panel Reviewed date:12/25/2024 12:53:03 PM Interpretation: Performing Lab:[facility], [address] [place] [address] Notes/Report: Sodium 135 135-145 mmol/L Potassium 3.8 [...] Sensitivity Reviewed date:12/25/2024 05:06:12 PM Interpretation: Performing Lab:[facility], [address] [place] [phone] Notes/Report: Troponin-I High Sensitivity 43.7 <3.5-35.0 ng/L The Joseph high sensitivity Troponin-I results should be used in conjunction with other diagnostic information such as ECG, clinical observations and information, and patient symptoms to aid in the diagnosis of CT. Glucose, Whole Blood Reviewed date:12/25/2024 12:10:35 PM Interpretation: Performing Lab:[facility], [address] [place] [phone] Notes/Report: Glucose, Whole Blood 201 60-115 mg/dL METER # : [id number] Lactic Acid-LAB USE ONLY Reviewed date:12/25/2024 12:10:52 PM Interpretation: Performing Lab:[facility], [address] [place] [address] Notes/Report: Lactic Acid-LAB USE ONLY 3.8 0.5-2.0 mmol/L Critical LACTIC ACID sent by a secure message and confirmed by KARLOS/GUILHERME 12/25/24 0131 Tech:VERA Glucose, Whole Blood Reviewed date:12/25/2024 05:04:54 PM Interpretation: Performing Lab:[facility], [address] [place] [phone] Notes/Report: Glucose, Whole Blood 189 60-115 mg/dL METER # : [id number] Glucose, Whole Blood Reviewed date:12/25/2024 05:05:38 PM Interpretation: Performing Lab:[facility], [address] [place] [phone] Notes/Report: Glucose, Whole Blood 161 60-115 mg/dL METER # : [id number] Glucose, Whole Blood Reviewed date:12/26/2024 04:12:43 PM Interpretation: Performing Lab:[facility], [address] [place] [phone] Notes/Report: Glucose, Whole Blood 167 60-115 mg/dL METER # : [id number] Complete Blood Count Auto Di ff Reviewed date:12/26/2024 03:08:03 PM Interpretation: Performing Lab:[facility], [address] [place] [phone] Notes/Report: White Blood Count 10.9 4.8-10.8 X10*3/uL [...] Panel Reviewed date:12/26/2024 03:07:56 PM Interpretation: Performing Lab:[address] [address] Notes/Report: Sodium 137 135-145 mmol/L Potassium 3.7 [...] Blood Reviewed date:12/26/2024 03:07:47 PM Interpretation: Performing Lab:[address] [address] Notes/Report: Glucose, Whole Blood 163 60-115 mg/dL METER # : [id number] Glucose, Whole Blood Reviewed date:12/26/2024 12:31:38 PM Interpretation: Performing Lab:[facility], [address] [place] [phone] Notes/Report: Glucose, Whole Blood 214 60-115 mg/dL METER # : [id number] Glucose, Whole Blood Reviewed date:12/26/2024 04:16:50 PM Interpretation: Performing Lab:[address] [address] Notes/Report: Glucose, Whole Blood 162 60-115 mg/dL METER # : [id number] Glucose, Whole Blood Reviewed date:12/27/2024 05:26:03 PM Interpretation: Performing Lab:[address] [address] Notes/Report: Glucose, Whole Blood 147 60-115 mg/dL METER # : [id number] Complete Blood Count Auto Di ff Reviewed date:12/27/2024 05:41:08 PM Interpretation: Performing Lab:[facility], [address] [place] [phone] Notes/Report: White Blood Count 11.4 4.8-10.8 X10*3/uL [...] Panel Reviewed date:12/27/2024 05:38:02 PM Interpretation: Performing Lab:[facility], [address] [place] [phone] Notes/Report: Sodium 139 135-145 mmol/L Potassium 3.7 [...] Blood Reviewed date:12/27/2024 05:32:13 PM Interpretation: Performing Lab:[address] [address] Notes/Report: Glucose, Whole Blood 161 60-115 mg/dL METER # : [id number] Aubree Morales Reviewed date:12/27/2024 05:27:08 PM Interpretation: Performing Lab:[address] [address] Notes/Report: Aubree Morales See Note Specimen held untested for 24 hours; Call to request Chemistry testing. Glucose, Whole Blood Reviewed date:12/27/2024 04:51:49 PM Interpretation: Performing Lab:[address] [address] Notes/Report: Glucose, Whole Blood 265 60-115 mg/dL METER # : [id number] XR chest 2V Reviewed date:01/09/2025 01:45:09 PM Interpretation: Performing Lab: Notes/Report: [address] [address] XRay Report Signed Patient: Delia Chávez MR#: [id number] : 1935 Acct:[id number] Age/Sex: 89 / M ADM Date: 01/09/25 Loc: HO.XRAY Attending Dr: Orestes Alex MD Ordering Physician: Orestes Alex MD Date of Service: 01/09/25 Procedure(s): XR chest 2V Accession Number(s): [id number] cc: Orestes Alex MD EXAMINATION: XR CHEST [...] 01/09/25 1256 DD/ 1222 TD/TT: 01/09/25 1230 Welding Robot Operator: [place] [address] XRay Report Signed Patient: Delia Chávez MR#: [id number] : 1935 Acct:[id number] Age/Sex: 89 / M ADM Date: 01/09/25 Loc: DYLAN Attending Dr: Orestes Alex MD Ordering Physician: Orestes Alex MD Date of Service: 01/09/25 Procedure(s): XR [facility] [facility] 2V Accession Number(s): [id number] cc: Orestes Alex MD EXAMINATION: XR CHEST [...] 01/09/25 1256 DD/ 1222 TD/TT: 01/09/25 1230 Welding Robot Operator: XR chest 2V Reviewed date:02/17/2025 01:06:15 PM Interpretation: Performing Lab: Notes/Report: [address] [address] XRay Report Signed Patient: Delia Chávez MR#: [id number] : 1935 Acct:[id number] Age/Sex: 89 / M ADM Date: 02/17/25 Loc: HO.MADINAAY Attending Dr: Orestes Alex MD Ordering Physician: Orestes Alex MD Date of Service: 02/17/25 Procedure(s): XR chest 2V Accession Number(s): [id number] cc: Orestes Alex MD Reason for Exam: PNEUMONIA EXAMINATION: XR CHEST 2 VIEWS HISTORY: PNEUMONIA COMPARISON: Comparison is made with the prior examination dated 01/09/2025. FINDINGS: PA and lateral views of the chest are submitted. There has been further improvement in the SVC and airspace opacity in the left upper lobe. Patchy densities persist in this region. There are no new increased interstitial markings bilaterally suggestive of interstitial edema. There may be tiny bilateral pleural effusions. No pneumothorax. The heart is mildly enlarged. The patient is status post valve replacement. There is degenerative disc disease of the spine. XR/XR chest 2V IMPRESSION: 1. Improvement in previously seen left upper lobe pneumonia. Patchy densities persist in this region. Continued follow-up is recommended. 2. Probable new mild pulmonary interstitial edema. Probable trace bilateral pleural effusions. Electronically signed by: Mario Moore MD 02/17/2025 12:10 PM EDT RP Dictated By: Mario Moore MD Signed By: <Electronically signed by Mario Moore MD in OV> 02/17/25 1210 DD/ 1140 TD/TT: 02/17/25 1143 Welding Robot Operator: [address] [address] XRay Report Signed Patient: Delia Chávez MR#: [id number] : 1935 Acct:[id number] Age/Sex: 89 / M ADM Date: 02/17/25 Loc: KARRIEAY Attending Dr: Orestes Alex MD Ordering Physician: Orestes Alex MD Date of Service: 02/17/25 Procedure(s): XR [facility] [facility] 2V Accession Number(s): [id number] cc: Orestes Alex MD Reason for Exam: PNEUMONIA EXAMINATION: XR CHES T 2 VIEWS HISTORY: PNEUMONIA COMPARISON: Comparis on is made with the prior examination dated 01/09/2025. FINDINGS: PA and lateral views of the chest are submitted. There has been further improvement in the SVC and airspace opacity in the left upper lobe. Patchy densities persist in this region. There are no new increased interstiti al markings bilaterally suggestive of interstitial edema. There may be tiny bilateral pleural effusions. No pneumothorax. The heart is mildly enlarged. The patient is status post valve replacement. 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 XR/XR chest 2V IMPRESSION: 1. Improvement in previously seen left upper lobe pneumonia. Patchy densities persist in this region. Continued follow-up is recommended. 2. Probable new mild pulmonary interstitial edema. Probable trace bilateral pleural effusions. Electronically alex d by: Mario Moore MD 02/17/2025 12:10 PM EDT RP Dictated By: Mario Moore MD Signed By: <Electronically signed by Mario Moore MD in OV> 02/17/25 1210 DD/ 1140 TD/TT: 02/17/25 1143 Welding Robot Operator: Reason For Referral No Information Medications Medication [...] Adminsudhakar burrell Fluarix Quadrivalent IM Intramuscular 03/21/2016 Adminsudhakar burrell TDaP IM Intramuscular 03/31/2016 Administered Fluarix Quadrivalent IM Intramuscular 02/13/2017 Adminsudhakar red Shingrix IM Intramuscular 12/06/2017 Administered [facility] Kory Rosario Fluarix Quadrivalent IM Intramuscular 03/05/2018 Administe ashanti Shingrix Unknown 02/11/2018 Administered PPSV23 (Pnemovax) IM Intramuscular 04/16/2018 Administered Fluarix Quadrivalent IM Intramuscular 03/03/2019 Administjessi burrell Influenza High Dose IM Intramuscular 02/20/2020 [...] W/U Status Risk Notes Problem Atrial fibrillation (80527442) Atrial fibrillation (I48.91) Active confirmed Problem 214335760 Thrombocytopenia (D69.6) Active confirmed Problem 06167630 Lymphocytosis (D72.820) Active confirmed Problem 77948010 Prostatism (N40.0) Active confirmed Problem Insomnia (575845515) Insomnia (G47.00) Active confirmed Problem Congestive heart failure (99287801) CHF (congestive heart failure) (I50.9) Active confirmed Problem 81774457 Hypercalcemia (E83.52) Active confirme d Problem 1758055 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 Problem 70435538 Essential hypert ension (I10) Active confirmed Problem 372259543 Acquired hypothyroidism (E03.9) Active confirmed Problem 19938841 Type 2 diabetes mellitus without complication (E11.9) Active confirmed Problem 427566574 Hypoglycemia (E16.2) Active confirmed Problem 07189439 Iron deficiency anemia, unspecified iron deficiency anemia type (D50.9) Active confirmed Problem 951077553 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 Problem Aortic valve disorder (7975038) Severe aortic stenosis (I35.0) Active confirmed Problem 446718985 Rising PSA level (R97.20) Active confirmed Problem 555088798 Pure hypercholesterolemia (E78.00) Active confirmed Problem 470254642 Imbalance (R26.89) Active confirmed Problem 878112792 Frequent falls (R29.6) Active confirm ed Problem History of heart valve repair with prosthesis (62905709627029 8) H/O aortic valve replacement (Z95.2) Active confirmed Problem 54558666 Aneurysm artery, 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 Vital Signs Blood pressure diastolic 60 mm Hg 01/20/2025 Height 67 in 01/20/2025 Blood pressure systolic 112 mm Hg 01/20/2025 Weight 160 lbs 01/20/2025 BMI 25.06 kg/m2 01/20/2025 Encounters Encounter Location Date Provider Diagnosis Orestes Alex MD [address] [place] [address] [id number] 02/18/2024 Orestes Alex Encounter for immuni zation Z23 Orestes Alex MD [address] [place] [address] [id number] 06/20/2024 Orestes Alex Acquired hypothyroid ism E03.9 ; Type 2 diabetes mellitus without complication E11.9 ; Prostatism N40.0 ; Essential hypertension I10 ; Pure hypercholesterolemia E78.00 and Lymphocytosis D72.820 Orestes Alex MD [address] [place] [address] [id number] 06/27/2024 Orestes Alex Elevated BUN R79.9 ; Type 2 diabetes mellitus without complication E11.9 ; Essential hypertension I10 ; Prostatism N40.0 ; Pure hypercholesterolemia E78.00 ; Colon cancer screening Z12.11 ; Depression screening Z13.31 and Atrial fibrillation I48.91 Orestes Alex MD [address] [place] [address] [id number] 07/24/2024 Orestes Alex Elevated BUN R79.9 Orestes Alex MD [address] [place] [address] [id number] 12/01/2024 Orestes Alex Pure hypercholestero lemia E78.00 Orestes Alex MD [address] [place] [address] [id number] 01/09/2025 Orestes Alex Elevated LFTs R79.89 Orestes Alex MD [address] [place] [address] [id number] 02/13/2025 Orestes Alex Elevated liver enzym es R74.8 and Encounter for administration of vaccine Z23 Orestes Alex MD [address] [place] [address] [id number] 03/17/2024 Orestes Alex Type 2 diabetes [place] itus without complication E11.9 and Frequent falls R29.6 Orestes Alex MD [address] [place] [address] [id number] 08/25/2024 Orestes Alex Type 2 diabetes [place] itus without complication E11.9 and Insomnia G47.00 Orestes Alex MD [address] [place] [address] [id number] 12/04/2024 Orestes Mahaner Type 2 diabetes [place] itus without complication E11.9 ; Acquired hypothyroidism E03.9 ; Atrial fibrillation I48.91 ; Pure hypercholesterolemia E78.00 and Essential hypertension I10 Orestes Alex MD [address] [place] [address] [id number] 01/09/2025 Orestes Alex Type 2 diabetes [place] itus without complication E11.9 ; CHF (congestive heart failure) I50.9 and Lung mass R91.8 Orestes Alex MD [address] [place] [address] [id number] 01/20/2025 Orestes Alex Type 2 diabetes monroe itus without complication E11.9 and Pneumonia J18.9 Orestes Alxe MD [address] [place] [address] [id number] 10/02/2024 Orestes Alex MD [address] [place] [address] [id number] 12/25/2024 Orestes Alex Pneumonia J18.9 Orestes Alex MD [address] [place] [address] [id number] 12/31/2024 Orestes Alex MD [address] [place] [address] [id number] 02/02/2025 Orestes Alex MD [address] [place] [address] [id number] 02/17/2025 Orestes Belenardier Pneumonia J18.9 Assessments Encounter Date Diagnosis (ICD [...] patient to be done in 2 weeks. 02/17/2025 Pneumonia (ICD-10 - J18.9) Order mailed to the patient to be done week of 03-09-25. 06/20/2024 Prostatism (ICD-10 - N40.0) 06/27/2024 Essential [...] (EKG) 03/31/2016 ECHO 05/23/2021 XR chest 2V 12/25/2024 XR chest 2V 02/17/2025 Blood Urea Nitrogen 07/24/2024 Creatinine 07/24/2024 Next Appt Details Provider Name:Orestes Linda ier, 06/26/2025 07:15:00 AM, [address] [place] [address], [address], [phone], Provider Name:Orestes Linda ier, 07/03/2025 01:30:00 PM, [address] [place] [address], [place] [address], [place], [place], [id number], Insurance Providers Payer Name Payer Address Payer Phone Subscriber Number Group Number Insured Name Patient Relationship to Insured Coverage Start Date Coverage End Date [employer] [address] [place] [address] [id number] Delia Chávez Self - patient is the insured [employer] [place] [place] [address] [place] [address] [id number] Delia Chávez Self - patient is the insured Medical (General) History Medical History History ICD Code Hypothyroidism type II diabetes hypercholesterolemia colonoscopy 2008 not to have any more; C olonoscopy 01/09/19 - Dr. Allen cardiac cath october 2016 entirely normal sitalexia is esteban
--- OUTSIDE RECORDS SUMMARY | 2025-02-17 13:38 | XMS_ITS | Patient Health Record ---
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 Name Role Phone Orestes Alex MD Primary Care Provider Yakelin Hernández, Xenia Unavailable [phone] Allergies Allergen (clinical drug ingredient) Drug/Non Drug [...] Problem Type II diabetes mellitus without complication (772013301) Type 2 diabetes mellitus without complications (E11.9) Active confirmed Vital Signs Blood pressure diastolic 67 mm Hg 12/04/2024 Height 5 ft 10 in in 12/04/2024 Blood pressure systolic 155 mm Hg 12/04/2024 Weight 147 lbs 12/04/2024 BMI 21.09 kg/m2 12/04/2024 Procedures Procedure Date Ordered Date Performed Result Body Sit e 99630-PCRCCCI NAIL, 6 OR MORE 05/26/2024 N/A 45645-Uvcuxoqw Plate 05/26/2024 N/A 74802-Xvhmnnjf Plate Each Additional 05/26/2024 N/A 04544-GLCCALA NAIL, 6 OR MORE 12/04/2024 N/A Encounters Encounter Location Date Provider Diagnosis [address] [address] 05/26/2024 Xenia Black Tinea unguium B35.1 ; Ingrown nail L60.0 ; Type 2 diabetes mellitus without complications E11.9 ; Pain in right toe(s) M79.674 and Pain in left toe(s) M79.[address] [address] 12/04/2024 Xenia Black Tinea unguium B35.1 ; Type 2 diabetes mellitus without complications E11.9 ; Pain in right toe(s) M79.674 and Pain in left toe(s) M79.[address] [address] 12/04/2024 Xenia Black [address] [address] 01/26/2025 Xenia Black Assessments Encounter Date Diagnosis [...] toe(s) (ICD-10 - M79.674) 05/26/2024 Pain in right toe(s) (ICD-10 - M79.674) 12/04/2024 Pain in left toe(s) (ICD-10 - M79.675) 05/26/2024 Pain in left toe(s) (ICD-10 - M79.675) Plan Of Treatment Pending Test Test Name Order Date *Uric Acid, Serum 02/26/2013 *Sedimentation Rate-Westergren 3 X ray : Foot, right 3V 02/26/2013 44865-WUROFBT NAIL, 6 OR MORE 04/30/2017 28345-UNEEHWL NAIL, 6 OR MORE 06/18/2017 20783-LQVBYIF NAIL, 6 OR MORE 02/28/2018 74291-YDOORPM NAIL, 6 OR MORE 05/27/2018 54914-MKSGOSN NAIL, 6 OR MORE 08/26/2018 99558-HBGLODK NAIL, 6 OR MORE 11/14/2018 22028-ITWBFMU NAIL, 6 OR MORE 02/13/2019 12464-ZKMFKEO NAIL, 6 OR MORE 05/19/2019 36879-KXICOBX NAIL, 6 OR MORE 10/16/2019 92827-IMILZTH NAIL, 6 OR MORE 01/22/2020 91675-ZRYDNKT NAIL, 6 OR MORE 04/26/2020 86826-XSHDQTJ NAIL, 6 OR MORE 08/02/2020 71949-DMTNILN NAIL, 6 OR MORE 10/28/2020 44671-JBBXNMM NAIL, 6 OR MORE 01/27/2021 05360-JYNNPXY NAIL, 6 OR MORE 05/09/2021 99508-SEFFGLN NAIL, 6 OR MORE 08/25/2021 61651-UPCDJDV NAIL, 6 OR MORE 03/09/2022 82262-FEVEFPK NAIL, 6 OR MORE 06/22/2022 04375-UAGCLLE NAIL, 6 OR MORE 10/23/2022 96849-UEGHGTU NAIL, 6 OR MORE 11/28/2021 57913-YWELMVG NAIL, 6 OR MORE 02/22/2023 60589-KHBERAL NAIL, 6 OR MORE 07/19/2023 65351-VYFGDIZ NAIL, 6 OR MORE 10/25/2023 60126-BVFQBAD NAIL, 6 OR MORE 02/14/2024 36983-JBTKUPB NAIL, 6 OR MORE 05/26/2024 57759-DBJSUDH NAIL, 6 OR MORE 12/04/2024 05772-Yoewohut Plate 05/26/2024 90633-Sakvsrej Plate 10/25/2023 12547-Zfigeres Plate 07/19/2023 90853-Jmxbhfek Plate 02/22/2023 93057-Wdcvngtf Plate 11/28/2021 91908-Crohkzcd Plate 08/25/2021 67939-Rrqsamrx Plate 10/28/2020 98033-Rmwveycn Plate Each Additional 85325 I&D ABSCESS- SIMPLE,SINGLE 022 77397 I&D ABSCESS- SIMPLE,SINGLE 021 99062 I&D ABSCESS- SIMPLE,SINGLE 021 56655-Jknu. Subungual Hematoma 9 Nail Panel 04/30/2017 Next Appt Details Provider Name:Xenia Hernández , 04/13/2025 03:30:00 PM, [address] [place] [address], [phone], Insurance Providers Payer Name Payer Address Payer Phone Subscriber Number Group Number Insured Name Patient Relationship to Insured Coverage Start Date Coverage End Date Medicare [employer] [facility] [employer] [address] [place] [address] [id number] Richard Chávez Self - patient is the insured 1 [employer] [address] [place] [address] [id number] Richard Chávez Self - patient is the [...]
--- OUTSIDE RECORDS SUMMARY | 2025-02-27 20:00 | XMS_ITS | Clinical Summary ---
Author Organization Unknown Care Team Providers Care Talent Acquisition Assistant Name Role Phone SHERRELL DAVILA, YELENA Unavailable Unavailable MATTIE RN, CARI Unavailable Unavailalen SCHMITT RN, GARCÍA Unavailable Unavailable SANDYMOI KAN LPN, CHELSEA Unavailable Unavai lable Payers Payer Name Policy Type Policy Number Effective Date Expira tion Date MEDICARE - [facility]/PR - [facility] [id number] Problems Condition Name Condition Details Condition Category Status Onset Date Resolution Date Last Treatment Date Treating Clinician Comments OTHER PNEUMONIA, UNSPECIFIED ORGANISM Active 06-11 00:00: 00 UNSPECIFIED ATRIAL FIBRILLATION Active 06-11 00:00: 00 TYPE 2 DIABETES MELLITUS WITHOUT COMPLICATION S Active 06-11 00:00: 00 ACUTE RESPIRATORY FAILURE WITH HYPOXIA Active 06-11 00:00: 00 UNSPECIFIED ATRIAL FLUTTER Active 06-11 00:00: 00 HYPERLIPIDEM IA, UNSPECIFIED Active 06-11 00:00: 00 HYPOTHYROIDI SM, UNSPECIFIED Active 06-11 00:00: 00 ESSENTIAL (PRIMARY) HYPERTENSION Active 06-11 00:00: 00 PRESENCE OF PROSTHETIC HEART VALVE Active 06-11 00:00: 00 PERSONAL HISTORY OF NICOTINE DEPENDENCE Active 06-11 00:00: 00 MCC (CURRENT) USE OF ANTICOAGULAN TS Active 06-11 00:00: 00 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 Ordering Clinician Indication Dosage Frequency Signature (SIG) Comments Components cefuroxime axetil 500 mg tablet 12-27 00:00: 00 12-31 00:00 :00 No [id number] Per instruc tions Per instructio ns (route: oral) Med Classific ation: Anti-Infe ctive Agents doxycycline hyclate 100 mg tablet 12-27 00:00: 00 12-31 00:00 :00 No [id number] Per instruc tions Per instructio ns (route: oral) Med Classific ation: Anti-Infe ctive Agents Breo Ellipta 100 mcg-25 mcg/dose powder for inhalation 12-26 00:00: 00 12-31 00:00 :00 No [id number] Per instruc tions Per instructio ns (route: inhalation ) Med Classific ation: Respirato ry Therapy Agents atorvastati n 80 mg tablet 12-22 00:00: 00 12-31 00:00 :00 No [id number] Per instruc tions ONCE DAILY Per instructio ns ONCE DAILY (route: oral) Med Classific ation: Cardiovas cular Therapy Agents DILT-XR 180 mg capsule, extended release 12-14 00:00: 00 12-31 00:00 :00 No [id number] Per instruc tions EVERY DAY Per instructio ns EVERY DAY (route: oral) Med Classific ation: Cardiovas cular Therapy Agents ascorbic acid (vitamin C) 1,000 mg capsule 12-28 00:00: 00 Yes [id number] 1 capsule DAILY 1 capsule DAILY (route: oral) Med Classific ation: Electroly te Balance-N utritiona l Products atorvastati n 80 mg tablet 12-28 00:00: 00 Yes [id number] 1 tablet BEDTIME 1 tablet BEDTIME (route: oral) Med Classific ation: Cardiovas cular Therapy Agents cefuroxime axetil 500 mg tablet 12-28 00:00: 00 01-07 23:59 :00 No [id number] 1 tablet 2 TIMES DAILY 1 tablet 2 TIMES DAILY (route: oral) Med Classific ation: Anti-Infe ctive Agents cholecalcif keegan (vitamin D3) 50 mcg (2,000 unit) capsule 12-28 00:00: 00 Yes [id number] 1 capsule BEDTIME 1 capsule BEDTIME (route: oral) Med Classific ation: Electroly te Balance-N utritiona l Products coenzyme Q10 100 mg capsule 12-28 00:00: 00 Yes [id number] 1 capsule DAILY 1 capsule DAILY (route: oral) Med Classific ation: Alternati ve Therapy diltiazem ER 180 mg capsule,24 hr,extended release 12-28 00:00: 00 Yes [id number] 1 capsule DAILY 1 capsule DAILY (route: oral) Med Classific ation: Cardiovas cular Therapy Agents doxycycline hyclate 100 mg tablet 12-28 00:00: 00 01-07 23:59 :00 No [id number] 1 tablet 2 TIMES DAILY 1 tablet 2 TIMES DAILY (route: oral) Med Classific ation: Anti-Infe ctive Agents Dry Eye Relief (PEG 400) 1 % drops 12-28 00:00: 00 Yes [id number] 1 drops 3 TIMES DAILY 1 drops 3 TIMES DAILY (route: ophthalmic (eye)) Med Classific ation: Ophthalmi c Agents Eliquis 2.5 mg tablet 12-28 00:00: 00 Yes [id number] 1 tablet 2 TIMES DAILY 1 tablet 2 TIMES DAILY (route: oral) Med Classific ation: Hematolog ical Agents ferrous sulfate 325 mg (65 mg iron) tablet 12-28 00:00: 00 Yes [id number] 1 tablet DAILY 1 tablet DAILY (route: oral) Med Classific ation: Electroly te Balance-N utritiona l Products furosemide 40 mg tablet 12-28 00:00: 00 Yes [id number] 1 tablet DAILY 1 tablet DAILY (route: oral) Med Classific ation: Cardiovas cular Therapy Agents glipizide 5 mg tablet 12-28 00:00: 00 Yes [id number] 1 tablet DAILY 1 tablet DAILY (route: oral) Med Classific ation: Endocrine levothyroxi ne 125 mcg tablet 12-28 00:00: 00 Yes [id number] 1 tablet DAILY 1 tablet DAILY (route: oral) Med Classific ation: Endocrine metformin 500 mg tablet 12-28 00:00: 00 Yes [id number] 2 tablet 2 TIMES DAILY 2 tablet 2 TIMES DAILY (route: oral) Med Classific ation: Endocrine metoprolol succinate ER 25 mg tablet,exte nded release 24 hr 12-28 00:00: 00 Yes [id number] 1 tablet BEDTIME 1 tablet BEDTIME (route: oral) Med Classific ation: Cardiovas cular Therapy Agents omega-3 300 mg-dha 120 mg-epa 180 mg-fish oil 1,000 mg capsule 12-28 00:00: 00 Yes [id number] 1 capsule DAILY 1 capsule DAILY (route: oral) Med Classific ation: Cardiovas cular Therapy Agents sitagliptin 50 mg tablet 12-28 00:00: 00 Yes [id number] 1 tablet DAILY 1 tablet DAILY (route: oral) Med Classific ation: Endocrine tamsulosin 0.4 mg capsule 12-28 00:00: 00 Yes [id number] 1 capsule DAILY 1 capsule DAILY (route: oral) Med Classific ation: Genitouri nary Therapy Immunizations Ordered Immunization Name Filled Immunization Name Date Status Comments Refusal Reason COVID BOOSTER, COVID BOOSTER 2024-03-14 00:00:00 INFLUENZA, TIV (INACTIVATED) 2024-03-14 00:00:00 Vital Signs Vital Name Observation Time Observation Value Commen ts Temperature 2025-02-16 11:34:00.000 98 [degF] Temperature 2025-02-10 12:13:00.000 98.5 [degF] Temperature 2025-02-04 10:36:00.000 97.8 [degF] Temperature 2025-01-28 10:40:00.000 98.1 [degF] Temperature 2025-01-20 12:18:00.000 97.9 [degF] Temperature 2025-01-13 08:23:00.000 97.7 [degF] Temperature 2025-01-09 11:19:00.000 97 [degF] Temperature 2024-12-31 10:13:00.000 98 [degF] BMI (%) 2024-12-31 10:13:00.000 21 kg/m2 Height 2024-12-31 10:13:00.000 70 [in_us] Pulse 2025-02-16 11:34:00.000 60 /min Pulse 2025-02-10 12:13:00.000 98 /min Pulse 2025-02-04 10:36:00.000 64 /min Pulse 2025-01-28 10:40:00.000 60 /min Pulse 2025-01-20 12:18:00.000 60 /min Pulse 2025-01-13 08:23:00.000 64 /min Pulse 2025-01-09 11:19:00.000 60 /min Pulse 2024-12-31 10:13:00.000 63 /min O2 Saturation (%) 2025-02-16 11:34:00.000 99 % O2 Saturation (%) 2025-02-10 12:13:00.000 95 % O2 Saturation (%) 2025-02-04 12:46:00.000 90 % O2 Saturation (%) 2025-01-28 10:40:00.000 95 % O2 Saturation (%) 2025-01-20 12:18:00.000 96 % O2 Saturation (%) 2025-01-13 08:23:00.000 96 % O2 Saturation (%) 2025-01-09 11:19:00.000 95 % O2 Saturation (%) 2024-12-31 10:13:00.000 95 % Respirations 2025-02-16 11:34:00.000 18 /min Respirations 2025-02-10 12:13:00.000 18 /min Respirations 2025-02-04 10:36:00.000 20 /min Respirations 2025-01-28 10:40:00.000 20 /min Respirations 2025-01-20 12:18:00.000 18 /min Respirations 2025-01-13 08:23:00.000 18 /min Respirations 2025-01-09 11:19:00.000 19 /min Respirations 2024-12-31 10:13:00.000 18 /min Weight (lbs) 2025-02-16 11:34:00.000 160 [lb_av] Weight (lbs) 2025-02-10 12:13:00.000 154 [lb_av] Weight (lbs) 2025-02-04 10:36:00.000 163 [lb_av] Weight (lbs) 2025-01-28 10:40:00.000 162 [lb_av] Weight (lbs) 2025-01-20 12:18:00.000 153 [lb_av] Weight (lbs) 2025-01-13 08:23:00.000 147 [lb_av] Weight (lbs) 2025-01-09 11:19:00.000 152 [lb_av] Weight (lbs) 2024-12-31 10:13:00.000 152 [lb_av] Systolic Blood Pressure 2025-02-16 11:34:00.000 124 mm [Hg] Systolic Blood Pressure 2025-02-10 12:13:00.000 120 mm [Hg] Systolic Blood Pressure 2025-02-04 10:36:00.000 116 mm [Hg] Systolic Blood Pressure 2025-01-28 10:40:00.000 110 mm [Hg] Systolic Blood Pressure 2025-01-20 12:18:00.000 112 mm [Hg] Systolic Blood Pressure 2025-01-13 08:23:00.000 108 mm [Hg] Systolic Blood Pressure 2025-01-09 11:19:00.000 102 mm [Hg] Systolic Blood Pressure 2024-12-31 10:13:00.000 104 mm [Hg] Diastolic Blood Pressure 2025-02-16 11:34:00.000 60 mm [Hg] Diastolic Blood Pressure 2025-02-10 12:13:00.000 78 mm [Hg] Diastolic Blood Pressure 2025-02-04 10:36:00.000 58 mm [Hg] Diastolic Blood Pressure 2025-01-28 10:40:00.000 60 mm [Hg] Diastolic Blood Pressure 2025-01-20 12:18:00.000 60 mm [Hg] Diastolic Blood Pressure 2025-01-13 08:23:00.000 62 mm [Hg] Diastolic Blood Pressure 2025-01-09 11:19:00.000 56 mm [Hg] Diastolic Blood Pressure 2024-12-31 10:13:00.000 62 mm [Hg] Plan of Treatment Planned Activity Planned Date Details Comments Future Scheduled Test SKILLED NU RSE TO EVALUATE PATIENT, IDENTIFY PRIMARY AND CO-MORBID CONDITIONS CODED PER CODING GUIDELINES, AND DEVELOP PATIENT SPECIFIC PLAN OF CARE THAT INCLUDES PATIENT GOAL FOR HOME HEALTH. [code = SKILLED NURSE TO EVALUATE PATIENT, IDENTIFY PRIMARY AND CO-MORBID CONDITIONS CODED PER CODING GUIDELINES, AND DEVELOP PATIENT SPECIFIC PLAN OF CARE THAT INCLUDES PATIENT GOAL FOR HOME HEALTH.] Future Scheduled Test SKILLED NU RSE FOR O/A OF RESPIRATORY SYSTEM TO IDENTIFY CHANGES ASSOCIATED WITH EXACERBATION AND TO PROVIDE SKILLED TEACHING ON MANAGEMENT OF PNEUMONIA RESPIRATORY DISEASE PROCESS. [code = SKILLED NURSE FOR O/A OF RESPIRATORY SYSTEM TO IDENTIFY CHANGES ASSOCIATED WITH EXACERBATION AND TO PROVIDE SKILLED TEACHING ON MANAGEMENT OF PNEUMONIA RESPIRATORY DISEASE PROCESS.] Future Scheduled Test SKILLED NU RSE TO OBTAIN BLOOD SUGAR PRN FOR SIGNS AND SYMPTOMS OF HYPO/HYPERGLYCEMIA. IF OBTAINED BY PATIENT/CAREGIVER PRIOR TO VISIT AND PATIENT IS NOT SYMPTOMATIC, SKILLED NURSE TO RECORD READING FROM PATIENT LOG. [code = SKILLED NURSE TO OBTAIN BLOOD SUGAR PRN FOR SIGNS AND SYMPTOMS OF HYPO/HYPERGLYCEMIA. IF OBTAINED BY PATIENT/CAREGIVER PRIOR TO VISIT AND PATIENT IS NOT SYMPTOMATIC, SKILLED NURSE TO RECORD READING FROM PATIENT LOG.] Future Scheduled Test SKILLED NU RSE FOR O/A AND TEACHING OF ENDOCRINE SYSTEM TO IDENTIFY CHANGES ASSOCIATED WITH EXACERBATION OF HYPOTHYROIDISM FOR EARLY INTERVENTION OF COMPLICATIONS. [code = SKILLED NURSE FOR O/A AND TEACHING OF ENDOCRINE SYSTEM TO IDENTIFY CHANGES ASSOCIATED WITH EXACERBATION OF HYPOTHYROIDISM FOR EARLY INTERVENTION OF COMPLICATIONS.] Future Scheduled Test SKILLED NU RSE TO INSTRUCT PATIENT/CAREGIVER ON SIGNS AND SYMPTOMS, RISK FACTORS, COMPLICATIONS, AND MANAGEMENT OF ATRIAL FIBRILLATION. [code = SKILLED NURSE TO INSTRUCT PATIENT/CAREGIVER ON SIGNS AND SYMPTOMS, RISK FACTORS, COMPLICATIONS, AND MANAGEMENT OF ATRIAL FIBRILLATION.] Future Scheduled Test SKILLED NU RSE TO PROVIDE TEACHING ON SIGNS AND SYMPTOMS AND MANAGEMENT OF HYPERTENSION. [code = SKILLED NURSE TO PROVIDE TEACHING ON SIGNS AND SYMPTOMS AND MANAGEMENT OF HYPERTENSION.] Future Scheduled Test SKILLED NU RSE FOR O/A AND TEACHING ON SIGNS AND SYMPTOMS AND MANAGEMENT OF HYPOTENSION [code = SKILLED NURSE FOR O/A AND TEACHING ON SIGNS AND SYMPTOMS AND MANAGEMENT OF HYPOTENSION] Future Scheduled Test SKILLED NU RSE FOR O/A AND TEACHING OF DIABETIC MANAGEMENT INCLUDING BLOOD SUGAR MONITORING/USE OF GLUCOMETER, DIABETIC DIET, LOWER EXTREMITY SKIN INSPECTION, PROPER SKIN/FOOT CARE, AND SIGNS AND SYMPTOMS HYPO/HYPERGLYCEMIA TO REPORT. [code = SKILLED NURSE FOR O/A AND TEACHING OF DIABETIC MANAGEMENT INCLUDING BLOOD SUGAR MONITORING/USE OF GLUCOMETER, DIABETIC DIET, LOWER EXTREMITY SKIN INSPECTION, PROPER SKIN/FOOT CARE, AND SIGNS AND SYMPTOMS HYPO/HYPERGLYCEMIA TO REPORT.] Future Scheduled Test PATIENT PRUETT S A RISK OF HOSPITALIZATION AND ED USE. SKILLED NURSE TO ESTABLISH SUPPORT MEASURES TO MINIMIZE RISK OF HOSPITALIZATION AND ED USE, AND INSTRUCT PATIENT/CAREGIVER ON METHODS TO REDUCE AVOIDABLE HOSPITALIZATION AND ED USE. [code = PATIENT HAS A RISK OF HOSPITALIZATION AND ED USE. SKILLED NURSE TO ESTABLISH SUPPORT MEASURES TO MINIMIZE RISK OF HOSPITALIZATION AND ED USE, AND INSTRUCT PATIENT/CAREGIVER ON METHODS TO REDUCE AVOIDABLE HOSPITALIZATION AND ED USE.] Future Scheduled Test SKILLED NU RSE TO PROVIDE INSTRUCTION TO PATIENT/CAREGIVER RELATED TO DISCHARGE PLANNING. [code = SKILLED NURSE TO PROVIDE INSTRUCTION TO PATIENT/CAREGIVER RELATED TO DISCHARGE PLANNING.] Future Scheduled Test SKILLED NU RSE TO PERFORM ENVIRONMENTAL SAFETY RISK ASSESSMENT AND FALL RISK ASSESSMENT AND PROVIDE INSTRUCTION TO IMPLEMENT ENVIRONMENTAL SAFETY AND FALL PREVENTION STRATEGIES THROUGHOUT THE CERTIFICATION PERIOD. SKILLED NURSE WILL MAINTAIN SITUATIONAL AWARENESS AND WILL NOTIFY CLINICAL CERAMIC CHEMIST AND PHYSICIAN/PROVIDER WITH ANY CHANGE IN CONDITION. [code = SKILLED NURSE TO PERFORM ENVIRONMENTAL SAFETY RISK ASSESSMENT AND FALL RISK ASSESSMENT AND PROVIDE INSTRUCTION TO IMPLEMENT ENVIRONMENTAL SAFETY AND FALL PREVENTION STRATEGIES THROUGHOUT THE CERTIFICATION PERIOD. SKILLED NURSE WILL MAINTAIN SITUATIONAL AWARENESS AND WILL NOTIFY CLINICAL CERAMIC CHEMIST AND PHYSICIAN/PROVIDER WITH ANY CHANGE IN CONDITION.] Future Scheduled Test SKILLED NU RSE FOR OBSERVATION AND ASSESSMENT OF PATIENT S PAIN LEVEL AND EFFECTIVENESS OF PAIN MANAGEMENT REGIMEN. SKILLED NURSE TO INSTRUCT PATIENT/CAREGIVER REGARDING PHARMACOLOGIC AND NON-PHARMACOLOGIC PAIN CONTROL MEASURES. SKILLED NURSE TO REPORT TO PHYSICIAN IF PAIN LEVEL IS OUTSIDE OF ESTABLISHED PARAMETERS. [code = SKILLED NURSE FOR OBSERVATION AND ASSESSMENT OF PATIENT S PAIN LEVEL AND EFFECTIVENESS OF PAIN MANAGEMENT REGIMEN. SKILLED NURSE TO INSTRUCT PATIENT/CAREGIVER REGARDING PHARMACOLOGIC AND NON-PHARMACOLOGIC PAIN CONTROL MEASURES. SKILLED NURSE TO REPORT TO PHYSICIAN IF PAIN LEVEL IS OUTSIDE OF ESTABLISHED PARAMETERS.] Future Scheduled Test SKILLED NU RSE TO ASSESS PATIENT'S SKIN INTEGRITY AND INSTRUCT PATIENT/CAREGIVER ON MEASURES TO PREVENT PRESSURE ULCERS. [code = SKILLED NURSE TO ASSESS PATIENT'S SKIN INTEGRITY AND INSTRUCT PATIENT/CAREGIVER ON MEASURES TO PREVENT PRESSURE ULCERS.] Future Scheduled Test SKILLED NU RSE TO REVIEW PATIENT MEDICATIONS (PRESCRIPTION/OTC). INSTRUCT PATIENT/CAREGIVER ON ALL MEDICATIONS INCLUDING PURPOSE, WHEN TO TAKE, IMPORTANCE OF MEDICATION ADHERENCE, MONITORING OF EFFECTIVENESS, ADVERSE DRUG REACTIONS, POSSIBLE SIDE EFFECTS, AND WHEN TO NOTIFY AGENCY OR PHYSICIAN/PROVIDER OF ANY CONCERNS. [code = SKILLED NURSE TO REVIEW PATIENT MEDICATIONS (PRESCRIPTION/OTC). INSTRUCT PATIENT/CAREGIVER ON ALL MEDICATIONS INCLUDING PURPOSE, WHEN TO TAKE, IMPORTANCE OF MEDICATION ADHERENCE, MONITORING OF EFFECTIVENESS, ADVERSE DRUG REACTIONS, POSSIBLE SIDE EFFECTS, AND WHEN TO NOTIFY AGENCY OR PHYSICIAN/PROVIDER OF ANY CONCERNS.] Goal Patient Goal - S PURA AWAY FROM THE HOSPITAL Goal Provider Goal - A PLAN OF CARE WILL BE ESTABLISHED THAT MEETS PATIENT'S [facility] NEEDS AND INCLUDES PATIENT GOAL FOR HOME HEALTH. Goal Provider Goal - PATIENT/CAREGIVER WILL VERBALIZE/DEMONSTRATE MANAGEMENT OF PNEUMONIA RESPIRATORY DISEASE PROCESS. CHANGES IN RESPIRATORY STATUS WILL BE IDENTIFIED AND REPORTED TO PHYSICIAN FOR PROMPT INTERVENTION THROUGHOUT THE CERTIFICATION PERIOD. Goal Provider Goal - BLOOD SUGAR READING WILL BE OBTAINED ORDERED THROUGHOUT CERTIFICATION PERIOD. Goal Provider Goal - PATIENT/CAREGIVER WILL VERBALIZE SIGNS AND SYMPTOMS OF EXACERBATION OF ENDOCRINE DIAGNOSIS TO REPORT TO NURSE/PHYSICIAN THROUGHOUT THE CERTIFICATION PERIOD. Goal Provider Goal - PATIENT/CAREGIVER WILL VERBALIZE UNDERSTANDING OF SIGNS AND SYMPTOMS, COMPLICATIONS, AND MANAGEMENT OF ATRIAL FIBRILLATION THROUGHOUT THE CERTIFICATION PERIOD. Goal Provider Goal - PATIENT/CAREGIVER WILL VERBALIZE SIGNS AND SYMPTOMS OF HYPERTENSION AND WILL BE ABLE TO DEMONSTRATE ABILITY TO MANAGE EXACERBATION BY END OF THE EPISODE. Goal Provider Goal - PATIENT/CAREGIVER WILL VERBALIZE SIGNS AND SYMPTOMS OF HYPOTENSION AND WILL BE ABLE TO DEMONSTRATE ABILITY TO MANAGE EXACERBATION BY END OF THE EPISODE. Goal Provider Goal - PATIENT/CAREGIVER WILL VERBALIZE/DEMONSTRATE KNOWLEDGE OF DIABETIC MANAGEMENT. CHANGES IN DIABETIC STATUS WILL BE IDENTIFIED AND REPORTED TO PHYSICIAN FOR PROMPT INTERVENTION THROUGHOUT THE CERTIFICATION PERIOD. Goal Provider Goal - PATIENT WILL HAVE SUPPORT MEASURES ESTABLISHED TO PREVENT HOSPITALIZATION AND ED USE AND PATIENT/CAREGIVER WILL VERBALIZE/DEMONSTRATE METHODS TO REDUCE AVOIDABLE HOSPITALIZATION AND ED USE BY END OF EPISODE. Goal Provider Goal - PATIENT/CAREGIVER WILL VERBALIZE UNDERSTANDING OF DISCHARGE PLANNING INSTRUCTIONS BY DATE OF DISCHARGE. Goal Provider Goal - PATIENT/CAREGIVER WILL VERBALIZE/DEMONSTRATE EFFECTIVE ENVIRONMENTAL SAFETY AND FALL PREVENTION STRATEGIES, WILL REMAIN SAFE IN THE COMMUNITY, AND WILL BE FREE OF DANGER TO SELF AND OTHERS THROUGHOUT THE CERTIFICATION PERIOD. Goal Provider Goal - PATIENT/CAREGIVER WILL DEMONSTRATE UNDERSTANDING OF PHARMACOLOGIC AND NONPHARMACOLOGIC PAIN CONTROL MEASURES AND PATIENT WILL HAVE IMPROVEMENT IN PAIN INTERFERING WITH ACTIVITY EVIDENCED BY PAIN AT A LEVEL THAT IS ACCEPTABLE TO THE PATIENT AND PAIN LEVEL WITHIN ESTABLISHED PARAMETERS BY END OF CERTIFICATION PERIOD. Goal Provider Goal - PATIENT/CAREGIVER WILL VERBALIZE UNDERSTANDING OF PRESSURE ULCER PREVENTION BY END OF THE EPISODE. Goal Provider Goal - PATIENT/CAREGIVER WILL VERBALIZE UNDERSTANDING OF EDUCATION PROVIDED ON MEDICATIONS BY THE END OF THE CERTIFICATION PERIOD. Progress Notes Progress Notes <paragraph>[Visit Date: 2024 by CARI PHELPS RN]:</paragraph><paragraph>SNV 02/16/25</paragraph><paragraph></paragraph><paragraph>1. ABNORMAL FINDINGS/SIGNIFICANT CHANGES: PATIENT PRESCRIBED O2 TO USE IN THE HOME TODAY AT 2 L VIA NASAL CANNULA NEEDED</paragraph><paragraph></paragraph><paragraph>2. 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 SKILLED PROCEDURE PERFORMED THIS VISIT: NONE NEEDED THIS VISIT</paragraph><paragraph></paragraph><paragraph>4. NEXT PHYSICIAN/PROVIDER APPT: TBD</paragraph><paragraph></paragraph><paragraph>5. PLAN/FOLLOW-UP NEEDED FOR NEXT VISIT: PHYSICAL ASSESSMENT, DISCHARGED PROCESS EDUCATION MEDICATIONS REVIEW</paragraph><paragraph></paragraph><paragraph>ADDRESS ABOVE APPROPRIATE IN NARRATIVE BELOW: PATIENT ALERT ORIENTATED X3 DENIES ANY FEVERS CHILLS NAUSEA VOMITING DIARRHEA ABNORMAL SHORTNESS OF BREATH CHEST PAIN FALLS OR ED VISITS SINCE LAST VISIT. PATIENT NOW ON O2 VIA NASAL CANNULA -NEEDED IN THE HOME. PATIENT EDUCATED ON O2 SAFETY AND FIRE HAZARD PATIENT VERBALIZED UNDERSTANDING. PATIENT IS ABLE TO PREFILL HIS OWN MEDICATIONS AND UNDERSTANDS REASON FOR TAKING MEDICATION PATIENT IS ABLE TO DRIVE TO HIS APPOINTMENTS AND HAS NOT MISSED ANY APPOINTMENTS WITH HIS PROVIDERS. SN ASSESSMENT PATIENT LUNG SOUNDS NO CRACKLES OR WHEEZING DIM TO LOWER BASE, TRACE EDEMA TO BILATERAL LOWER EXTREMITIES PATIENT EDUCATED ON WHERE WEARING HIS COMPRESSION SOCKS WELL ELEVATING LEGS PATIENT VERBALIZED UNDERSTANDING BOWEL SOUNDS X4 LAST BOWEL MOVEMENT TODAY SKIN DRY INTACT NO OPEN AREAS. PATIENT EDUCATED ON DISCHARGE PROCESS PATIENT HAS NO OTHER SKILLED FOR SN HAS MET ALL HIS GOALS AND PATIENT ALSO REQUESTING A DISCHARGE FROM SERVICES HE STATES HE IS WELL AND ABLE TO MANAGE HIS OWN CARE. TODAY [facility] SIGNED PATIENT AGREEABLE TO BEING DISCHARGED NEXT WEEK. PATIENT EDUCATED ON CALLING [facility] [place] [facility] FOR ANY CONCERNS OR CHANGE IN CONDITION WELL NEXT SN VISIT PATIENT VERBALIZED UNDERSTANDING AND AGREES WITH PLAN.</paragraph> Encounters Start Date/Time End Date/Time Encounter Type Admission Type Attending Clinicians Care Facility Care Department Encounter ID Discharge Date Discharge Status Discharge Condition Discharge Reason Percent Goals Met 2024-12-31 00:00:00 2025-02-28 00:00:00 Outpatient NEW ADMISSION [facility] [id number] 46.43
== END 2025-02-17 11:13 | disposition home or self-care (01) ==
LOC: HO.XRAY 11:12
PROVIDERS: PCP Internal Medicine; Visit Provider Internal Medicine
DX: J18.9 Pneumonia, unspecified organism (principal)
CPT/HCPCS: 71046

== ENCOUNTER → 2025-02-17 11:36 | Outpatient (BNV) | payer MEDICARE, SELFPAY ==
[2024-12-23 15:15] VITALS: BP 122/60; BP 134/60; BMI 24.7
== END ==
PROVIDERS: PCP Internal Medicine; Visit Provider Radiology Diagnostic Radiology
DX: J18.9 Pneumonia, unspecified organism (principal)
CPT/HCPCS: 71046

== ENCOUNTER 2025-02-26 13:14 | Outpatient (AMB) | payer MEDICARE, SELFPAY ==
[2024-12-23 15:15] VITALS: BP 122/60; BP 134/60; BMI 24.7
--- NOTE | 2025-02-26 13:15 | MHC.OFFVIS ---
Vital Signs 02/26/25 13:16 Height 5 ft 10 in Weight 168 lb BMI 24.1 BP 120/68 Blood Pressure Location Lt brachial Position Sitting Pulse 58 Pulse Source Monitor Intake Visit Reasons: 1 yr follow up Allergies No Known Allergies (No Known Allergies*) Allergy (Verified 02/03/25 14:55) Medication List - Last Reconciled 02/26/25 by Home Kendall MD apixaban (Eliquis) 2.5 mg PO BID ascorbic acid (vitamin C) (Vitamin C) 1,000 mg PO DAILY atorvastatin 80 mg PO DAILY blood sugar diagnostic (FreeStyle Lite Strips) As directed carbamide peroxide 6.5% 5 drps otic (ears) TID cefuroxime axetil 500 mg PO BID cholecalciferol (vitamin D3) (Vitamin D3) 50 mcg PO BEDTIME coenzyme Q10 (CoQ-10) 100 mg PO DAILY diltiazem HCl ER (DILT-XR) 180 mg PO DAILY doxycycline hyclate 100 mg PO BID ferrous sulfate (FeroSul) 325 mg PO DAILY furosemide 40 mg PO DAILY glipizide 5 mg PO DAILY levothyroxine 125 mcg PO DAILY@0600 metformin 1,000 mg PO BID metoprolol succinate ER 25 mg PO BEDTIME omega 6-uvi-mtd-fish oil 1,000 (120-180) mg (Fish Oil) 1 cap PO DAILY peg 400-propylene glycol 0.4-0.3 % 1 drp ophthalmic (eye) TID sitagliptin 50 mg PO DAILY tamsulosin 0.4 mg PO BEDTIME HPI Comments Details: Richard comes for follow-up. He complains of significant shortness of breath. He had also has bilateral leg swelling. His Lasix was increased to 40 mg b.i.d. only for 1 week. He does not recall whether he felt better or not. However he has significant leg swelling. He does have significant shortness of breath as well has shortness of breath laying down. Denies any palpitation, lightheadedness, syncope. Currently having no bleeding issues or neurologic events. Denies any palpitations, lightheadedness, syncope. [facility] Medical History (Updated 02/26/25 @ 13:52 by Home Kendall MD) Atrial flutter Hypercalcemia TAYLOR (acute kidney injury) Acute hyperglycemia HTN (hypertension) Aortic stenosis Arthritis of right knee Calcific tendinitis of left shoulder Orthostasis (~2014) Diabetes mellitus (~2014) Knee effusion (~11/15/14) Hyperlipidemia (~2012) Hypothyroidism (~2012) Surgical History (Updated 02/26/25 @ 13:52 by Home Kendall MD) S/P TAVR (transcatheter aortic valve replacement) S/P wrist surgery History of cardiac cath Family History Father No problems noted. 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 Review of Systems Const Denies weakness ENT Denies dizziness Card Denies chest pain, Denies chest pain with activity, Denies syncope, Denies rapid heart rate, Denies pedal edema, Denies edema, Denies leg edema, Denies lightheadedness, Denies palpitations, Reports dyspnea, Reports dyspnea on exertion and Reports orthopnea Resp Denies cough, Reports dyspnea and Reports dyspnea on exertion GI Denies hematochezia and Denies change in stool character Musc Denies abnormal gait, Denies muscle cramps, Denies muscle weakness, Denies numbness, Denies radiating pain into limb and Denies tingling Neuro Denies Abnormal speech present, Denies abnormal gait, Denies dizziness, Denies syncope, Denies numbness, Denies tingling and Denies weakness Endo Denies palpitations Physical Exam Vital Signs: Last Vital Signs Pulse 58 02/26/25 13:16 BP 120/68 02/26/25 13:16 BMI result Body Mass Index 24.1 Const General: cooperative, comfortable, alert, awake, Physically active and in distress moderate and respiratory Nutritional Appearance: thin and other (Frail appearing) Orientation/consciousness: patient oriented x3 Limitations: no limitations Neck Neck: Yes trachea midline, Yes supple and Yes JVD Carotids: delayed carotid upstroke Chest Chest palpation & inspection: normal inspection of the chest Resp Effort & Inspection: normal respiratory effort Cardio Jugular venous distension: JVD Rhythm: abnormal rhythm irregularly irregular Heart sounds: S1 normal heart sound present, S2 normal heart sound present, no click, no gallops and Murmur heart sound present systolic early GI Auscultation: normal bowel sounds Skin General skin exam: no rashes or lesions noted Neuro General: patient oriented x3 and no focal motor deficits Speech: No Abnormal speech present Extrem General: No clubbing, No cyanosis and Yes edema (Three to 4+ bilateral) Psych Appearance: grossly normal Assessment & Plan Assessment & Plan (1) Heart failure with preserved ejection fraction: Code(s): I50.30 - Unspecified diastolic (congestive) heart failure Category: Medical Plan: Patient appears in quite a bit of distress and evidence of fluid overload suggestive of decompensated congestive heart failure. 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 So far I have advised him to increase his Lasix to 40 mg b.i.d. and added Farxiga 5 mg to his regimen. Advised to seek emergency care if he shows sudden deterioration or does not improve with diuretic therapy. Management of heart failure was discussed. Daily weight monitoring avoidance salt loading was discussed. He should start noticing improvement symptoms with increased diuresis. Will require blood work next week. Also suggest chest x-ray next week. Overall prognosis is guarded. (2) Atrial flutter: Code(s): I48.92 - Unspecified atrial flutter Category: Medical Plan: Chronic rate control atrial fibrillation. Rate is adequately controlled. Continue current rate control therapy. Continue full oral anticoagulation, should be on Eliquis 5 mg b.i.d. given his age and weight. He has criteria is within normal limits. This reduction is unclear as to how that happened. Continue metoprolol (3) S/P TAVR (transcatheter aortic valve replacement): Code(s): Z95.2 - Presence of prosthetic heart valve Category: Surgical Plan: Status post transcatheter aortic valve replacement which is working well. Continue full oral anticoagulation above. SBE prophylaxis as per ACC/[facility] guidelines. Will follow up in the clinic in 3 weeks time, sooner p.r.n.. Thank you for allowing me to partake in his care Medications: New dapagliflozin propanediol (Farxiga) 5 mg PO DAILY 30 tabs 5RF furosemide 40 mg PO BID 90 tabs 2RF Coding Level of Care Code Est Pt Level 4 (13382) Complex EM visit Add On G2211 Diagnoses Heart failure with preserved ejection fraction I50.30 Atrial flutter I48.92 S/P TAVR (transcatheter aortic valve replacement) Z95.2
[2025-02-26 13:16] VITALS: BP 120/68; PULSE 58; BMI 24.1
== END 2025-02-26 13:41 | disposition home or self-care (01) ==
LOC: HO.HCS 13:14
PROVIDERS: PCP Internal Medicine; Visit Provider Internal Medicine Cardiovascular Disease
DX: I50.30 Unspecified diastolic (congestive) heart failure (principal); I48.92 Unspecified atrial flutter; Z95.2 Presence of prosthetic heart valve
CPT/HCPCS: 99214; G2211

== ENCOUNTER → 2025-02-26 13:14 | Outpatient (BNVA) | payer MEDICARE, SELFPAY ==
[2024-12-23 15:15] VITALS: BP 122/60; BP 134/60; BMI 24.7
== END ==
PROVIDERS: PCP Internal Medicine; Visit Provider Internal Medicine Cardiovascular Disease
DX: I50.33 Acute on chronic diastolic (congestive) heart failure (principal); I48.92 Unspecified atrial flutter; Z79.899 Other long term (current) drug therapy; Z95.2 Presence of prosthetic heart valve
CPT/HCPCS: 99212

== ENCOUNTER 2025-03-04 15:01 | Outpatient (REF) | payer MEDICARE, SELFPAY ==
--- OUTSIDE RECORDS SUMMARY | 2010-08-11 07:08 | XMS_ITS | Continuity of Care Document ---
Author Organization [facility] Address [address] [place] [address] Phone Care Team Providers Care Pick Up Truck Driver Name Role Phone BEVERLY DAVILA [facility], [place] Unavailable Unavailable Procedures Procedure Date STRESS ECHO W/PHY SUP/REPT DOPPLER ECHO EXAM, HEART DOPPLER COLOR FLOW ADD-ON Advance Directives Directive Yes / No Effective Date File Name No Information Encounters Encounter Description Practice Location Reason(s) For Visit Diagnoses Date Provider Providers Copied on Encounter [facility], [address], [place], [address], [place] tel:[phone] [facility] Office No Information BEVERLY DAVILA [facility] [place]. [address], [facility], [place], [place], [address], [place]. tel:[phone] [facility], [address], [place], [address], [place] tel:[phone] [facility] Office Shortness of Breath BEVERLY DAVILA [facility] [place]. [address], [facility], [place], [place], [address], [place]. tel:[phone] Referring Provider: Cherie Badillo NP [facility], [address] [facility], [address]. tel:[phone] Family History Family Member Type Diagnosis Age At Onset No Information Payers Payer name Insurance type Covered green party ID Authorgricel lora(s) Medicare Part B [id number] [facility] Out Of Area [id number] Social History Type Description Quantity Date Captured [...]
--- OUTSIDE RECORDS SUMMARY | 2024-09-01 09:00 | XMS_ITS ---
Author Organization [facility] Address [address] [place] [address] Care Team Providers Care Acid Painter Name Role Phone Orestes Alex MD Primary Care Provider Xenia Rojas [phone] Mark Encounters Encounter Location Date Provider Diagnosis [address] [address] 09/01/2024 Xeniajessi Hernández Plan Of Treatment Next Appt Details Provider Name:Xenia Hernández , 04/13/2025 03:30:00 PM, [address] [place] [address], [phone], Progress Notes * Richard CAT WDOB:1935 (89 yo M)Acc No.[id number]:09/01/2024 Progress Note Patient: Richard HERRERA Provider: Sherita Hernández DPM :1935 A ge:89 Y S ex:Male Date:09/01/2024 Address[address] [place] Pcp:Orestes Alex MD Subjective: * Chief Complaints: [...] 0 09/01/2024 Generated for Morelia Ortega on: 03/04/2025 05:32 PM EDT
[2024-12-23 15:15] VITALS: BP 122/60; BP 134/60; BMI 24.7
--- OUTSIDE RECORDS SUMMARY | 2025-01-09 07:45 | XMS_ITS ---
Author Organization Orestes Alex MD Address [address] [place], [place] [phone] Care Team Providers Care Snuff Packing Machine Operator Name Role Phone Orestes Alex Primary Care Provider [phone] Allergies No Known Allergies Results Component Value [...] Status Risk Notes Problem Congestive heart failure ([id number]) CHF (congestive heart failure) (I50.9) Active confirmed Vital Signs Blood pressure systolic 122 mm Hg 01/10/20 25 Blood pressure diastolic 64 mm Hg 025 Height 67 in 01/09/2025 Weight 159 lbs 01/09/2025 BMI 24.9 kg/m2 01/09/2025 weight is up 5 pounds since Encounters Encounter Location Date Provider Diagnosis Orestes Alex MD [address] [place] [address] Drive [address] [place], [place] [phone] 01/09/2025 Orestes Alex Type 2 diabetes mellitus [...] Name:Orestes Venancio Maddi ier, 06/26/2025 07:15:00 AM, [address] [place] [address] Drive, [address], [place], [place], [phone], Provider Name:Orestes Craft Belenzi ier, 07/03/2025 01:30:00 PM, [address] [facility], [address], [place], [place], [phone], Progress Notes * Delia CAT WDOB:1935 (89 yo M)Acc No.[id number]:01/09/2025 Patient: Delia HERRERA Provider: Nicolette Alex MD :1935 A ge:89 Y S ex:Male Date:01/09/2025 Address:[address] [place] [address], [id number] Subjective: * Chief Complaints: * P H/TCM [...] BP:122/64, Wt-k.12. weight is up 5 pounds -66-12. * Examination: G eneral Examination: GENERAL APPEARANCE: [...] 01/09/2025 Generated for Morelia martell/Bernardino/Zhangsmitting on: 0 03/04/2025 05:33 PM EDT History and Physical Notes * [...]
--- OUTSIDE RECORDS SUMMARY | 2025-01-20 09:45 | XMS_ITS ---
Author Organization Orestes Alex MD Address [address] [place], [place] [phone] Care Team Providers Care Manager Supply Chain Planning Name Role Phone Orestes Alex Primary Care [...] Location Date Provider Diagnosis Orestes Alex MD [address] [place] [address] [place] [phone] 01/20/2025 Orestes Alex Type 2 diabetes mellitus [...] Provider Name:Orestes javier, 06/26/2025 07:15:00 AM, [address], [address], [place], [place], [phone], Provider Name:Orestes Linda ier, 07/03/2025 01:30:00 PM, [address], [address], [place], [place], [phone], Progress Notes * Delia CAT WDOB:1935 (89 yo M)Acc No.[id number]:01/20/2025 Progress Notes Patient: Delia HERRERA Provider: Nicolette Alex MD :1935 A ge:89 Y S ex:Male Date:01/20/2025 Address:[address] [place] [address], [facility] [place], [id number] Subjective: * Chief Complaints: * 1 0 [...] 01/20/2025 Generated for Morelia martell/Bernardino/Reynaitting on: 0 03/04/2025 05:33 PM EDT History [...]
--- OUTSIDE RECORDS SUMMARY | 2025-02-02 09:35 | XMS_ITS ---
Author Organization Orestes Alex MD Address [address] [place] [phone] Care Team Providers Care Yarn Sorter Name Role Phone Orestes Alex Primary Care Provider [phone] REASON FOR VISIT bilateral ankle edema x 1 day Encounters Encounter Location Date Provider Diagnosis Orestes Alex MD [address] [place] [address] [place] [phone] 02/02/2025 Orestes Alex Plan Of Treatment Next Appt Details Provider Name:Orestes javier, 06/26/2025 07:15:00 AM, [address] [place] [address], Suite [facility], [place], [place], [phone], Provider Name:Orestes javier, 07/03/2025 01:30:00 PM, [address] [place] [address], Suite [facility], [place], [place], [phone], Progress Notes * Delia CAT WDOB:1935 (89 yo M)Acc No.[id number]:02/02/2025 Patient: Delia HERRERA :1935 A ge:89 Y S ex:Male Address:[address] [place] [address], [place] [address] * true * Date: Generated for Morelia martell/Bernardino/Zhangsmitting on: 0 03/04/2025 05:33 PM EDT
--- OUTSIDE RECORDS SUMMARY | 2025-02-13 05:00 | XMS_ITS ---
Author Organization Orestes Alex MD Address [address] [place], [place] [id number] Care Team Providers Care Experimental Plastics Fabricator Name Role Phone Orestes Alex Primary Care Provider Results Component Value Reference Range Notes Liver Panel Reviewed date:02/13/2025 12:45:26 PM Interpretation: Performing Lab:[facility], [address] [place] [phone] Notes/Report: Bilirubin Total 0.9 0.0-1.0 mg/dL Bilirubin [...] Alex MD [address] [place], [place] [id number] 02/13/2025 Orestes Alex Elevated liver enzym es R74.8 and Encounter for administration of vaccine Z23 Assessments Encounter Date Diagnosis (ICD Code) Assessment Notes Treatment Notes Treatment Clinical Notes Section Notes 02/13/2025 Elevated liver enzymes (ICD-10 - R74.8) 02/13/2025 Encounter for administration of vaccine (ICD-10 - Z23) Plan Of Treatment Next Appt Details Provider Name:Orestes javier, 06/26/2025 07:15:00 AM, [address], [address], [place], [place], [id number], Provider Name:Orestes javier, 07/03/2025 01:30:00 PM, [address], [address], [place], [place], [phone], Progress Notes * Delia CAT WDOB:1935 (89 yo M)Acc No.[id number]:02/13/2025 Progress Note Patient: Delia HERRERA Provider: Nicolette Alex MD :1935 A ge:89 Y S ex:Male Date:02/13/2025 Address:[address] [place] [address], [place], [id number] Subjective: * Chief Complaints: * 1 . [...] * Procedure Codes: 3 6415 VENIPUNCT, ROUTINE*, 15099 FLU VACC PRSV FREE INC ANTIG, G0008 ADMN FLU VAC NO FEE SCHED SAME DAY * * The named appointment provid er may or may not be the originator of this progress note, and it is not deemed complete until electronically signed by the appointment provider. Sign off status: Pending * Provider: Nicolette Alex MD Date: 0 02/13/2025 Generated for Morelia martell/Bernardino/Delia on: 03/04/2025 05:32 PM EDT
--- OUTSIDE RECORDS SUMMARY | 2025-02-17 09:00 | XMS_ITS ---
Author Organization Orestes Alex MD Address [address] [place] [phone] Care Team Providers Care Oil Well Drilling Manager Name Role Phone Orestes Alex Primary Care Provider REASON FOR VISIT Repeat CXR Encounters Encounter Location Date Provider Diagnosis Orestes Alex MD [address] [place] [phone] 02/17/2025 Orestes Alex Pneumonia J18.9 Assessments Encounter [...] 07:15:00 AM, [address], [address], [place], [place], [phone], Provider Name:Orestes Linda ier, 07/03/2025 01:30:00 PM, [address], [address], [place], [phone], Progress Notes * Delia CAT WDOB:1935 (89 yo M)Acc No.[id number]:02/17/2025 Patient: Yen NOYDelia Paula :1935 A ge:89 Y S ex:Male Address:[address] [place] [address], [place] [address] Subjective: * Chief Complaints: * R epeat CXR * Medical History: * Surgical History: * Hospitalization/Major Diagno stic Procedure: * Medications: Objective: * Vitals: * Physical Examination: Assessment: * Assessment: 1. Venancio lee - J18.9 Plan: * Treatment: * Procedure Codes: * true * Date: Generated for Morelia martell/Bernardino/eTransmitting on: 0 03/04/2025 05:33 PM EDT
--- NOTE | ~2025-03-04 | CT_ITS ---
EXAMINATION: CT CHEST WITHOUT CONTRAST CLINICAL INFORMATION: Z87.01 - Personal history of pneumonia (recurrent) COMPARISON: December 24, 2024 CT and x-ray 02/17/2025 TECHNIQUE: Multidetector volumetric CT imaging of the chest was done. Axial MIP volume rendering provided. Sagittal and coronal reformatted images were obtained. This CT examination was performed using dose optimization techniques as appropriate, variously including the following: *Automated exposure control *Adjustment of mA and/or kV according to patient size (this includes techniques or standardized protocols for targeted exams where dose is matched to indication/reason for exam; i.e. extremities or head) *Use of iterative reconstruction technique FINDINGS: LUNGS: Again noted are moderate changes of paraseptal and centrilobular emphysema. There is honeycombing in the medial right lower lobe. There is mild symmetrical bronchiectasis most pronounced in the perihilar regions and lower lobes. There is also peribronchial thickening. Masslike density with air bronchograms in the posterior left upper lobe as significantly decreased in size but has not fully resolved. There is a new spiculated nodular density in the anterior-inferior right upper lobe 2.3 cm long axis. There is new groundglass density with reticulation in the lower portion of the right upper lobe. There is new consolidation in the peribronchial lung of the perihilar right middle lobe. There is improved aeration of the left lower lobe with persistent areas of consolidation along the posterior lung as well as intralobular septal thickening and reticular densities. MEDIASTINUM: The trachea and mainstem bronchi are moderately enlarged. Borderline mediastinal lymph nodes are again noted. CORONARY ARTERY CALCIFICATION: Present PLEURA: There is no pleural effusion. No pleural mass or thickening. AXILLA: No lymphadenopathy. UPPER ABDOMEN: There is trace ascites which is new since the prior. The liver size is prominent with an enlarged left lateral hepatic segment relative to the right lobe suggesting underlying cirrhosis. Innumerable pseudodiverticula are visible in the hepatic flexure of the colon. OSSEOUS STRUCTURES: Moderate degenerative changes are present in the spine with bridging anterior osteophytes. CT/CT chest wo IV con IMPRESSION: Suspected multifocal pneumonia that has changed since the prior examination. There is increased involvement of the right upper lobe and improvement in the masslike consolidation in the posterior left upper lobe. There is also borderline mediastinal adenopathy and, again, underlying neoplasm is not ruled out. Moderate centrilobular and paraseptal emphysema. There is enlargement of the trachea and mainstem bronchi extending underlying obstructive component. Liver morphology suggests cirrhosis. There is trace ascites. Diverticulosis. 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 Fleischner guidelines were followed. Electronically signed by: Alireza Rose MD 03/04/2025 04:37 PM EDT RP
--- OUTSIDE RECORDS SUMMARY | 2025-03-04 17:33 | XMS_ITS | Patient Health Record ---
Author Organization [facility] Address [address] [place] [id number] Care Team Providers Care Delivery Supervisor Name Role Phone Orestes Alex MD Primary Care Provider Mario Way Unavailable [phone] Allergies Allergen (clinical drug ingredient) Drug/Non Drug [...] Problem Status W/U Status Risk Notes Problem 65422243 Rectal bleeding (K62.5) Active confirmed Problem 92621053 Change in bowel function (R19.4) Active confirmed Problem Anemia (578947724) Anemia (D64.9) Active confirmed Problem 30694679 Constipation, unspecified constipation type (K59.00) Active confirmed Problem 761946323 Anemia, unspecified type (D64.9) Active confirmed Plan [...] Date MEDICARE OF [place] [address] [place] [address] [id number] DELIA CAT Self - patient is the insured [employer] ATT[employer] CLAIMS [address] [place] [address] [id number] DELIA CAT Self - patient is the insured Medical (General) History Medical History History ICD Code Colonoscopy 10-06-2007 and 97--negative except diverticulosis and internal hemorrhoids; 3 negative Hemoccult cards in 01/2016 Hyperlipidemia BPH Denies [place],CVA,Lung disease,renal disease NIDDM Hypothyroidism Colonoscopy 01/2019 several small tubular adenomas removed Surgical History Surgery Date(Month/Year) Thumb surgery 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
--- OUTSIDE RECORDS SUMMARY | 2025-03-04 17:33 | XMS_ITS | Patient Health Record ---
Author Organization Orestes Alex MD Address [address] [place], [place] [id number] Care Team Providers Care Pharmacist'S Aide Name Role Phone Orestes Alex Primary Care Provider [phone] Allergies No Known Allergies Results Component Value Reference Range Notes Hemoglobin A1c Reviewed date:12/04/2024 01:29:14 PM Interpretation: Performing Lab: Notes/Report: Hemoglobin A1c 7.5 Complete Blood Count Auto Di ff Reviewed date:06/20/2024 05:40:23 PM Interpretation: Performing Lab:[facility], [address] [place] [address] Notes/Report: White Blood Count 7.8 4.8-10.8 X10*3/uL [...] NRBC Abs Auto 0.000 0.0-0.012 X10*3/uL Comprehensive [place]. Panel Fa st Reviewed date:06/27/2024 01:10:00 PM Interpretation:[place]ELAL[place] 06/27/24 Performing Lab:[facility], [address] [place] [phone] Notes/Report: Sodium 142 135-145 mmol/L Potassium 4.3 [...] Panel Reviewed date:06/20/2024 05:16:22 PM Interpretation: Performing Lab:[address] [address] Notes/Report: Triglycerides 117 <150 mg/dL Desirable Triglyceride: [...] (Free>4and<10) Reviewed date:06/20/2024 05:11:58 PM Interpretation: Performing Lab:[address] [address] Notes/Report: PSA,Total (Free>4and<10) 0.38 0.00-4.00 ng/mL A [...] Random Reviewed date:06/20/2024 05:11:49 PM Interpretation: Performing Lab:[address] [address] Notes/Report: Creatinine Urine 93.86 Microalbumin Urine 107.0 Microalbum/Creatinine Ratio Ur 113.9 <30 ug/mg cr Albumin/Creatinine Ratio Reference Ranges: Normal: < 30 ug/mg creatinine Microalbuminuria: 30 - 300 ug/mg creatinine Clinical Albuminuria: > 300 ug/mg creatinine Hemoglobin A1c Reviewed date:06/20/2024 05:12:06 PM Interpretation: Performing Lab:[address] [address] Notes/Report: Hemoglobin A1c % 7.3 <6.0 % [...] average glucose, using the formula of the [id number]-[id number] Average Glucose study (ADAG), Diabetes Care, Vol.31,#8, Jan. 2007 UA ClnCatch+Micro w/rflx Cul t Reviewed date:06/20/2024 05:38:57 PM Interpretation: Performing Lab:[address] [address] Notes/Report: Urine, Clean Catch Color Urine Yellow Appearance Urine Clear PH 5.5 5.0-9.0 Glucose Urine UA Negative Negative mg/dL Urine Blood Negative Negative Specific [place] - Urine 1.020 1.005-1.025 Urine Protein Trace Neg-Trace mg/dL Urine Ketones Negative Negative mg/dL Nitrite Urine Negative Negative Leukocyte Esterase Urine Negative Negative RBC Urine 0-2 0-2 /HPF WBC Urine 0-5 0-5 /HPF Squamous Epithelial Cell Urine 0-2 0-2 /HPF Bacteria Urine None Seen None Seen Hyaline Casts Urine 0-2 0-2 /LPF Liver Panel Reviewed date:12/01/2024 05:23:44 PM Interpretation: Performing Lab:[address], [place] [address] Notes/Report: Bilirubin Total 0.9 0.0-1.0 mg/dL Bilirubin Direct 0.4 0.0-0.5 mg/dL Aspartate Amino Transferase 41 5-37 U/L Alanine Aminotransferase 23 0-40 U/L Total Protein 7.3 6.5-8.0 g/dL Albumin Level 3.9 3.5-5.0 g/dL Alkaline Phosphatase 195 39-117 U/L Lipid Panel with Reflex Reviewed date:12/02/2024 08:16:58 AM Interpretation: Performing Lab:[address] [address] Notes/Report: Triglycerides 127 <150 mg/dL Desirable Triglyceride: [...] Panel Reviewed date:02/13/2025 11:34:17 AM Interpretation:02-13-2025 Performing Lab:[facility], [address] [place] [address] Notes/Report: Bilirubin Total 0.7 0.0-1.0 mg/dL Bilirubin Direct 0.4 0.0-0.5 mg/dL Aspartate Amino Transferase 87 5-37 U/L Alanine Aminotransferase 78 0-40 U/L Total Protein 6.6 6.5-8.0 g/dL Albumin Level 3.4 3.5-5.0 g/dL Alkaline Phosphatase 154 39-117 U/L Liver Panel Reviewed date:02/13/2025 12:45:26 PM Interpretation: Performing Lab:[facility], [address] [place] [phone] Notes/Report: Bilirubin Total 0.9 0.0-1.0 mg/dL Bilirubin [...] date:10/29/2024 03:54:47 PM Interpretation: Performing Lab: Notes/Report: [address] [address] XRay Report Signed Patient: Delia Chávez MR#: [id number] : 1935 Acct:[id number] Age/Sex: 89 / M ADM Date: 10/28/24 Loc: DYLAN Attending Dr: Cm Rivas NP Ordering Physician: Cm Rivas NP Date of Service: 10/28/24 Procedure(s): XR chest 2V Accession Number(s): [id number] cc: Orestes Alex MD; Cm Rivas NP [...] 10/28/24 1550 DD/ 1536 TD/TT: 10/28/24 1542 Process Design Chemical Engineer: [place] [address] XRay Report Signed Patient: Delia Chávez MR#: [id number] : 1935 Acct:[id number] Age/Sex: 89 / M ADM Date: 10/28/24 Loc: HOLEILA Attending Dr: Cm Rivas NP Ordering Physician: Cm Rivas NP Date of Service: 10/28/24 Procedure(s): XR [facility] [facility] 2V Accession Number(s): [id number] cc: Orestes Alex MD; Cm Rivas NP [...] 10/28/24 1550 DD/ 1536 TD/TT: 10/28/24 1542 Process Design Chemical Engineer: Aubree Morales Reviewed date:12/01/2024 12:26:31 PM Interpretation: Performing Lab:[facility], [address] [place] [address] Notes/Report: Aubree Morales See Note Specimen held untested for 24 hours; Call to request Chemistry testing. Complete Blood Count Auto Di ff Reviewed date:12/24/2024 03:54:40 PM Interpretation: Performing Lab:[facility], [address] [place] [phone] Notes/Report: White Blood Count 13.8 4.8-10.8 X10*3/uL [...] INR Reviewed date:12/25/2024 12:13:33 PM Interpretation: Performing Lab:[facility], [address] [place] [address] Notes/Report: Prothrombin Time 16.4 10.9-12.4 SEC INTERNATIONAL [...] Time Reviewed date:12/25/2024 12:56:06 PM Interpretation: Performing Lab:[facility], [address] [place] [address] Notes/Report: Partial Thromboplastin Time 37.1 26.0-36.8 SEC For information regarding the monitoring of direct thrombin inhibitors, please refer to Pharmacy. Comprehensive Met. Panel Reviewed date:12/24/2024 04:05:16 PM Interpretation: Performing Lab:[facility], [address] [place] [phone] Notes/Report: Sodium 132 135-145 mmol/L Potassium 4.2 [...] Acid Reviewed date:12/25/2024 12:13:13 PM Interpretation: Performing Lab:[address] [address] Notes/Report: Lactic Acid 3.1 0.5-2.0 mmol/L Critical value for test(s): LACTA Results called to and read back by: SHUN Person calling: ANA Date: 12.24.24 Time: 1919 Magnesium Reviewed date:12/24/2024 03:54:51 PM Interpretation: Performing Lab:[address] [address] Notes/Report: Magnesium 1.6 1.6-2.6 mg/dL Troponin-I High Sensitivity Reviewed date:12/24/2024 04:02:15 PM Interpretation: Performing Lab:[address] [address] Notes/Report: Troponin-I High Sensitivity 78.5 <3.5-35.0 ng/L The Joseph high sensitivity Troponin-I results should be used in conjunction with other diagnostic information such as ECG, clinical observations and information, and patient symptoms to aid in the diagnosis of KS. B Type Natriuretic Peptide Reviewed date:12/24/2024 04:01:59 PM Interpretation: Performing Lab:[address] [address] Notes/Report: B Type Natriuretic Peptide 227 <100 pg/mL SARS-CoV2/FLU/RSV Reviewed date:12/25/2024 12:13:46 PM Interpretation: Performing Lab:[address] [address] Notes/Report: Influenza A PCR NEGATIVE Negative Influenza [...] by authorized laboratories. Testing performed on the [employer] GeneXpert utilizing real-time RT-PCR. All SARS CoV2 and positive influenza A/B results are reported to [facility]. Blood Culture (First) Reviewed date:12/30/2024 12:35:51 PM Interpretation: Performing Lab:[address] [address] Notes/Report: Blood Culture (First) No growth after 5 days. Blood Culture (Second) Reviewed date:12/30/2024 12:38:40 PM Interpretation: Performing Lab:[address] [address] Notes/Report: Blood Culture (Second) No growth after 5 days. Lactic Acid-LAB USE ONLY Reviewed date:12/25/2024 12:11:17 PM Interpretation: Performing Lab:[address] [address] Notes/Report: Lactic Acid-LAB USE ONLY 2.2 0.5-2.0 mmol/L Critical value for test(s): LACTA Results called to and read back by: OMARWYen Person calling: ANA Date: 12.24.24 Time: 2245 Venous Blood Gases - POC Reviewed date:12/24/2024 03:41:59 PM Interpretation: Performing Lab:[address] [address] Notes/Report: VBG pH 7.36 7.32-7.43 METER #: [id number] additional_comment: Cb rojascr VBG pCO2 46 METER #: [id number] additional_comment: Cb rojascr VBG pO2 34 METER #: [id number] additional_comment: Cb rojascr VBG Base Excess 1.2 METER #: [id number] additional_comment: Cb rojascr VBG HCO3 26 22-26 mmol/L METER #: [id number] additional_comment: Cb rojascr VBG O2 % Saturation 41.0 METER #: [id number] additional_comment: Cb rojascr D Dimer High Sensitivity Reviewed date:12/25/2024 12:13:21 PM Interpretation: Performing Lab:[facility], [address] [place] [phone] Notes/Report: D Dimer High Sensitivity 469 D-DIMER [...] date:12/25/2024 12:14:35 PM Interpretation: Performing Lab: Notes/Report: [address] [address] [address] Scan Report Signed Patient: Delia Chávez MR#: [id number] : 1935 Acct:[id number] Age/Sex: 89 / M ADM Date: 12/24/24 Loc: .ED Attending Dr: Ordering Physician: Raul Chery MD Date of Service: 12/24/24 Procedure(s): CT chest wo IV con Accession Number(s): [id number] cc: Orestes Alex MD; Raul Chery MD Report Number: [id number]: Total DLP = 291.00 mGy-cm CLINICAL HISTORY: Left lung mass? CT chest without contrast Comparison: CR/SR - XR CHEST 1 VIEW - 12/24/24 15:46 EDT CR/NY/SR - XR CHEST 2V - 5/20/25 15:46 EDT Findings: The heart is enlarged. [...] in OV> 12/24/242127 DD/ 25 TD/TT: 12/24/242125 Process Design Chemical Engineer: [place] [address] CT Scan Report Signed Patient: Delia Chávez MR#: [id number] : 1935 Acct:[id number] Age/Sex: 89 / M ADM Date: 12/24/24 Loc: .ED Attending Dr: Ordering Physician: Raul Chery MD Date of Service: 12/24/24 Procedure(s): CT [facility] [facility] wo IV con Accession Number(s): [id number] cc: Orestes Alex MD; Raul Chery MD Report Number: [id number]: Total DLP = 291.00 mGy-cm CLINICAL HISTORY: Le ft lung mass? CT chest without contrast Comparison: CR/SR - XR CHEST 1 VIEW - 12/24/24 15:46 EDT CR/NY/SR - XR CHEST 2V - 10/28/24 15:46 EDT Findings: The heart is enlarge d. Abnormal lymph nodes are present within the prevascular and left hilar mediastinum. Moderate atheroscler otic disease of the coronary arteries. Aortic valve replace ment noted. There is dense left upper lobe consolidation, somewhat masslike. Additional faint pat gerry bibasilar density. Airway thickening noted. There is mild parase ptal emphysema. No significant effus ion. No pneumothorax. No acute osseous finding. The [...] in OV> 12/24/242127 DD/ 25 TD/TT: 12/24/242125 Process Design Chemical Engineer: XR chest 1V Reviewed date:12/24/2024 04:10:13 PM Interpretation: Performing Lab: Notes/Report: [address] [address] XRay Report Signed Patient: Delia Chávez MR#: [id number] : 1935 Acct:[id number] Age/Sex: 89 / M ADM Date: 12/24/24 Loc: .ED Attending Dr: Ordering Physician: Generic ED Physician Date of Service: 12/24/24 Procedure(s): XR chest 1V Accession Number(s): [id number] cc: Orestes Alex MD; Generic ED Physician [...] 12/24/24 1550 DD/ 1446 TD/TT: 12/24/24 1544 Process Design Chemical Engineer: [address] [address] XRay Report Signed Patient: Delia Chávez MR#: [id number] : 1935 Acct:[id number] Age/Sex: 89 / M ADM Date: 12/24/24 Loc: .ED Attending Dr: Ordering Physician: Generic ED Physician Date of Service: 12/24/24 Procedure(s): XR le[address] [facility] 1V Accession Number(s): [id number] cc: Orestes Alex MD; Generic ED Physician EXAMINATION: XR CHEST CLINICAL INFORMATION: SOB COMPARISON: October 28, 2024 TECHNIQUE: Frontal view of the chest was obtained. FINDINGS: There is a new centr al airspace opacity in the left upper lung zone extending fully to t he apex. Chronic coarse lung markings are again noted. X R/XR chest 1V IMPRESSION: New focal opacity in [...] 12/24/24 1550 DD/ 1446 TD/TT: 12/24/24 1544 Process Design Chemical Engineer: Complete Blood Count Auto Di ff Reviewed date:12/25/2024 05:07:41 PM Interpretation: Performing Lab:[facility], [address] [place] [address] Notes/Report: White Blood Count 13.0 4.8-10.8 X10*3/uL [...] Panel Reviewed date:12/25/2024 12:53:03 PM Interpretation: Performing Lab:[facility], [address] [place] [address] Notes/Report: Sodium 135 135-145 mmol/L Potassium 3.8 [...] Sensitivity Reviewed date:12/25/2024 05:06:12 PM Interpretation: Performing Lab:[facility], [address] [place] [address] Notes/Report: Troponin-I High Sensitivity 43.7 <3.5-35.0 ng/L The Joseph high sensitivity Troponin-I results should be used in conjunction with other diagnostic information such as ECG, clinical observations and information, and patient symptoms to aid in the diagnosis of KS. Glucose, Whole Blood Reviewed date:12/25/2024 12:10:35 PM Interpretation: Performing Lab:[facility], [address] [place] [address] Notes/Report: Glucose, Whole Blood 201 60-115 mg/dL METER # : [id number] Lactic Acid-LAB USE ONLY Reviewed date:12/25/2024 12:10:52 PM Interpretation: Performing Lab:[facility], [address] [place] [address] Notes/Report: Lactic Acid-LAB USE ONLY 3.8 0.5-2.0 mmol/L Critical LACTIC ACID sent by a secure message and confirmed by KARLOS/GUILHERME 12/25/24 0131 Tech:VERA Glucose, Whole Blood Reviewed date:12/25/2024 05:04:54 PM Interpretation: Performing Lab:[facility], [address] [place] [address] Notes/Report: Glucose, Whole Blood 189 60-115 mg/dL METER # : [id number] Glucose, Whole Blood Reviewed date:12/25/2024 05:05:38 PM Interpretation: Performing Lab:[facility], [address] [place] [address] Notes/Report: Glucose, Whole Blood 161 60-115 mg/dL METER # : [id number] Glucose, Whole Blood Reviewed date:12/26/2024 04:12:43 PM Interpretation: Performing Lab:[facility], [address] [place] [phone] Notes/Report: Glucose, Whole Blood 167 60-115 mg/dL METER # : [id number] Complete Blood Count Auto Di ff Reviewed date:12/26/2024 03:08:03 PM Interpretation: Performing Lab:[facility], [address] [place] [address] Notes/Report: White Blood Count 10.9 4.8-10.8 X10*3/uL [...] Panel Reviewed date:12/26/2024 03:07:56 PM Interpretation: Performing Lab:[address] [address] Notes/Report: Sodium 137 135-145 mmol/L Potassium 3.7 [...] Blood Reviewed date:12/26/2024 03:07:47 PM Interpretation: Performing Lab:[address] [address] Notes/Report: Glucose, Whole Blood 163 60-115 mg/dL METER # : [id number] Glucose, Whole Blood Reviewed date:12/26/2024 12:31:38 PM Interpretation: Performing Lab:[address] [address] Notes/Report: Glucose, Whole Blood 214 60-115 mg/dL METER # : [id number] Glucose, Whole Blood Reviewed date:12/26/2024 04:16:50 PM Interpretation: Performing Lab:[address] [address] Notes/Report: Glucose, Whole Blood 162 60-115 mg/dL METER # : [id number] Glucose, Whole Blood Reviewed date:12/27/2024 05:26:03 PM Interpretation: Performing Lab:[address] [place] [address] Notes/Report: Glucose, Whole Blood 147 60-115 mg/dL METER # : [id number] Complete Blood Count Auto Di ff Reviewed date:12/27/2024 05:41:08 PM Interpretation: Performing Lab:[address] [address] Notes/Report: White Blood Count 11.4 4.8-10.8 X10*3/uL [...] Panel Reviewed date:12/27/2024 05:38:02 PM Interpretation: Performing Lab:[facility], [address] [place] [address] Notes/Report: Sodium 139 135-145 mmol/L Potassium 3.7 [...] Blood Reviewed date:12/27/2024 05:32:13 PM Interpretation: Performing Lab:[facility], [address] [place] [address] Notes/Report: Glucose, Whole Blood 161 60-115 mg/dL METER # : [id number] Aubree Morales Reviewed date:12/27/2024 05:27:08 PM Interpretation: Performing Lab:[facility], [address] [place] [phone] Notes/Report: Aubree Morales See Note Specimen held untested for 24 hours; Call to request Chemistry testing. Glucose, Whole Blood Reviewed date:12/27/2024 04:51:49 PM Interpretation: Performing Lab:[facility], [address] [place] [phone] Notes/Report: Glucose, Whole Blood 265 60-115 mg/dL METER # : [id number] XR chest 2V Reviewed date:01/09/2025 01:45:09 PM Interpretation: Performing Lab: Notes/Report: [address] [place] [address] XRay Report Signed Patient: Delia Chávez MR#: [id number] : 1935 Acct:[id number] Age/Sex: 89 / M ADM Date: 01/09/25 Loc: KARRIEAY Attending Dr: Orestes Alex MD Ordering Physician: Orestes Alex MD Date of Service: 01/09/25 Procedure(s): XR chest 2V Accession Number(s): [id number] cc: Orestes Alex MD EXAMINATION: XR CHEST [...] 01/09/25 1256 DD/ 1222 TD/TT: 01/09/25 1230 Process Design Chemical Engineer: [address] [address] XRay Report Signed Patient: Delia Chávez MR#: [id number] : 1935 Acct:[id number] Age/Sex: 89 / M ADM Date: 01/09/25 Loc: DYLAN Attending Dr: Orestes Alex MD Ordering Physician: Orestes Alex MD Date of Service: 01/09/25 Procedure(s): XR [facility] [facility] 2V Accession Number(s): [id number] cc: Orestes Alex MD EXAMINATION: XR CHEST [...] with the prior exam. There are patchy bas ilar opacities, also improving. There is no pneumoth orax or pleural effusion. There is no focal osseous or soft tissue abnormality. X R/XR chest 2V IMPRESSION: 1. Improving left up per lobe and bibasilar pneumonic opacities. No definite effusions. 2. COPD. 3. Mild cardiac enlargement with TAVR Electronically alex d by: Tirso Garcia MD 01/09/2025 12:56 PM EDT RP Dictated By: Tirso Garcia MD Signed By: <Electronically signed by Tirso Garcia MD in OV> 01/09/25 1256 DD/ 1222 TD/TT: 01/09/25 1230 Process Design Chemical Engineer: XR chest 2V Reviewed date:02/17/2025 01:06:15 PM Interpretation: Performing Lab: Notes/Report: [address] [address] XRay Report Signed Patient: Delia Chávez MR#: [id number] : 1935 Acct:[id number] Age/Sex: 89 / M ADM Date: 02/17/25 Loc: DYLAN Attending Dr: Orestes Alex MD Ordering Physician: Orestes Alex MD Date of Service: 02/17/25 Procedure(s): XR chest 2V Accession Number(s): [id number] cc: Orestes Alex MD Reason for Exam: [...] 02/17/25 1210 DD/ 1140 TD/TT: 02/17/25 1143 Process Design Chemical Engineer: [place] [address] XRay Report Signed Patient: Delia Chávez MR#: [id number] : 1935 Acct:[id number] Age/Sex: 89 / M ADM Date: 02/17/25 Loc: HO.XRAY Attending Dr: Orestes Alex MD Ordering Physician: Orestes Alex MD Date of Service: 02/17/25 Procedure(s): XR [facility] [facility] 2V Accession Number(s): [id number] cc: Orestes Alex MD Reason for Exam: PNEUMONIA EXAMINATION: XR CHES T 2 VIEWS HISTORY: PNEUMONIA COMPARISON: Comparis on is made with the prior examination dated 01/09/2025. FINDINGS: PA and lat eral views of the chest are submitted. There has been further improve ment in the SVC and airspace opacity in the left upper lobe. Patchy densities persist in this region. There are no new increased interstiti al markings bilaterally suggestive of interstitial edema. There may be tiny bilateral pleural effusions. No pneumothorax. The heart is mildly enlarged. The patient is status post valve replacement. 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 X R/XR chest 2V IMPRESSION: 1. Improvement in previously [...] 02/17/25 1210 DD/ 1140 TD/TT: 02/17/25 1143 Process Design Chemical Engineer: CT chest wo con (Not yet rev iewed by provider) Interpretation: Performing Lab: Notes/Report: [address] [address] [address] Scan Report Signed Patient: Delia Chávez MR#: [id number] : 1935 Acct:[id number] Age/Sex: 89 / M ADM Date: 03/04/25 Loc: HO.CT Attending Dr: Kerline Ceja NP Ordering Physician: Kerline Ceja NP Date of Service: 03/04/25 Procedure(s): CT chest wo IV con Accession Number(s): [id number] cc: Orestes Alex MD; Kerline Ceja NP Report Number: [id number]: Total DLP = 123.00 mGy-cm Reason for Exam: Z87.01 - Personal history of pneumonia (recurrent) EXAMINATION: CT CHEST WITHOUT CONTRAST CLINICAL INFORMATION: Z87.01 - Personal history of pneumonia (recurrent) COMPARISON: December 24, 2024 CT and x-ray 02/17/2025 TECHNIQUE: Multidetector volumetric CT imaging of the chest was done. Axial MIP volume rendering provided. Sagittal and coronal reformatted images were obtained. This CT examination was performed using dose optimization techniques as appropriate, variously including the following: *Automated exposure control *Adjustment of mA and/or kV according to patient size (this includes techniques or standardized protocols for targeted exams where dose is matched to indication/reason for exam; i.e. extremities or head) *Use of iterative reconstruction technique FINDINGS: LUNGS: Again noted are moderate changes of paraseptal and centrilobular emphysema. There is honeycombing in the medial right lower lobe. There is mild symmetrical bronchiectasis most pronounced in the perihilar regions and lower lobes. There is also peribronchial thickening. Masslike density with air bronchograms in the posterior left upper lobe as significantly decreased in size but has not fully resolved. There is a new spiculated nodular density in the anterior-inferior right upper lobe 2.3 cm long axis. There is new groundglass density with reticulation in the lower portion of the right upper lobe. There is new consolidation in the peribronchial lung of the perihilar right middle lobe. There is improved aeration of the left lower lobe with persistent areas of consolidation along the posterior lung as well as intralobular septal thickening and reticular densities. MEDIASTINUM: The trachea and mainstem bronchi are moderately enlarged. Borderline mediastinal lymph nodes are again noted. CORONARY ARTERY CALCIFICATION: Present PLEURA: There is no pleural effusion. No pleural mass or thickening. AXILLA: No lymphadenopathy. UPPER ABDOMEN: There is trace ascites which is new since the prior. The liver size is prominent with an enlarged left lateral hepatic segment relative to the right lobe suggesting underlying cirrhosis. Innumerable pseudodiverticula are visible in the hepatic flexure of the colon. OSSEOUS STRUCTURES: Moderate degenerative changes are present in the spine with bridging anterior osteophytes. CT/CT chest wo IV con IMPRESSION: Suspected multifocal pneumonia that has changed since the prior examination. There is increased involvement of the right upper lobe and improvement in the masslike consolidation in the posterior left upper lobe. There is also borderline mediastinal adenopathy and, again, underlying neoplasm is not ruled out. Moderate centrilobular and paraseptal emphysema. There is enlargement of the trachea and mainstem bronchi extending underlying obstructive component. Liver morphology suggests cirrhosis. There is trace ascites. Diverticulosis. 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 Fleischner guidelines were followed. Electronically signed by: Alireza Rose MD 03/04/2025 04:37 PM EDT RP Dictated By: Alireza Rose MD Signed By: <Electronically signed by Alireza Rose MD in OV> 03/04/25 1637 DD/ 1510 TD/TT: 03/04/25 1542 Process Design Chemical Engineer: [address] [address] [address] Scan Report Signed Patient: Delia Chávez MR#: [id number] : 1935 Acct:[id number] Age/Sex: 89 / M ADM Date: 03/04/25 Loc: HO.CT Attending Dr: Yuliya Ceja NP Ordering Physician: Kerline Ceja NP Date of Service: 03/04/25 Procedure(s): CT [facility] wo IV con Accession Number(s): [id number] cc: Orestes Alex MD; Kerline Ceja NP Report Number: [id number]: Total DLP = 123.00 mGy-cm Reason for Exam: Z . - Personal history of pneumonia (recurrent) EXAMINATION: CT CHEST WITHOUT CONTRAST CLINICAL INFORMATION: . - Personal history of pneumonia (recurrent) COMPARISON: December 24, 2024 CT and x-ray 02/17/2025 TECHNIQUE: Multidetector volume tric CT imaging of the chest was done. Axial MIP volume rendering provided. Sagittal and coronal reformatted images were obtained. This CT examination was performed using dose optimization techniques as appropriate, various ly including the following: *Automated exposure control *Adjustment of mA an d/or kV according to patient size (this includes techniques or standardized protocols for targeted exams where dose is matched to indication/reason for exam; i.e. extremities or head) *Use of iterative reconstruction technique FINDINGS: LUNGS: Again noted a re moderate changes of paraseptal and centrilobular emphysema. There is honeycombin g in the medial right lower lobe. There is mild symmetrical bronchiectasis most pronounced in the perihilar regions an d lower lobes. There is also peribronchial thickening. Masslike density wit h air bronchograms in the posterior left upper lobe as significantly decreased in size but has not fully resolved. There is a new spiculated nodular density in the anterior-inferior right upper lobe 2.3 cm long axis. There is new groundg lass density with reticulation in the lower portion of the right upper lobe. There is new consolidation in the peribronchial lung of the perihilar right middle lobe. There is improved aeration of the left lower lobe with persistent areas of consolidation alonso ng the posterior lung as well as intralobular septal thickening an d reticular densities. MEDIASTINUM: The tra renita and mainstem bronchi are moderately enlarged. Borderline mediastin al lymph nodes are again noted. CORONARY ARTERY CALCIFICATION: Present PLEURA: There is no pleural effusion. No pleural mass or thickening. AXILLA: No lymphadenopathy. UPPER ABDOMEN: There is trace ascit es which is new since the prior. The liver size is prominent with an enlarged left lateral hepatic segment relative to the right lobe suggesting underlying cirrhosis. Innumerable pseudodiverticula are visible in the hepatic flexure of the colon. OSSEOUS STRUCTURES: Moderate degenerative changes are present in the spine with bridging anterior osteophytes. C T/CT chest wo IV con IMPRESSION: Suspected multifocal pneumonia that has changed since the prior examination. There i s increased involvement of the right upper lobe and improvement in the masslike consolidation in the posterior left upper lobe. There is also borderline mediastinal adenopathy and, again, underlying neoplasm is not ruled out. Moderate centrilobul ar and paraseptal emphysema. There is enlargement of the trachea and mainstem bronchi extending underlying obstructi ve component. Liver morphology suggests cirrhosis. There is trace ascites. Diverticulosis. 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 Fleischner guideline s were followed. Electronically alex d by: Alireza Rose MD 03/04/2025 04:37 PM EDT RP Dictated By: Alireza Rose MD Signed By: <Electronically signed by Alireza Rose MD in OV> 03/04/25 1637 DD/ 1510 TD/TT: 03/04/25 1542 Process Design Chemical Engineer: Reason For Referral No Information Medications Medication SIG (Take, Route, Frequency, Duration) Notes Start Date End Date Status SITagliptin 50 MG 1tablets Orally Once a day Active glipiZIDE 5 MG TAKE 1 TABLET ONCE D AILY 30MINUTES BEFORE BREAKFAST Active metFORMIN HCl 500 MG 1 tablet Orally twi ce a day Active Dilt-XR 180 MG TAKE [address] [facility] EVERY DAY for 30 Active Atorvastatin Calcium [...] 03/07/2013 Administered Fluarix Quadrivalent IM Intramuscular 02/13/2014 Administe red Prevnar 13 IM Intramuscular 09/10/2014 Administered Fluarix Quadrivalent IM Intramuscular 03/08/2015 Administe red Fluarix Quadrivalent IM Intramuscular 03/21/2016 Administe red TDaP IM Intramuscular 03/31/2016 Administered Fluarix Quadrivalent IM Intramuscular 02/13/2017 Administe red Shingrix IM Intramuscular 12/06/2017 Administered [facility] Fluarix Quadrivalent IM Intramuscular 03/05/2018 Administe red Shingrix Unknown 02/11/2018 Administered PPSV23 (Pnemovax) IM Intramuscular 04/16/2018 Administered Fluarix Quadrivalent IM Intramuscular 03/03/2019 Administe red Influenza High Dose IM Intramuscular 02/20/2020 Administer ed Covid Vaccine Unknown 07/16/2020 Administ[facility] Covid Vaccine Unknown 08/06/2020 [...] W/U Status Risk Notes Problem Atrial fibrillation (02746307) Atrial fibrillation (I48.91) Active confirmed Problem 737159077 Thrombocytopenia (D69.6) Active confirmed Problem 27560200 Lymphocytosis (D72.820) Active confirmed Problem 12046965 Prostatism (N40.0) Active confirmed Problem Insomnia (649782685) Insomnia (G47.00) Active confirmed Problem Congestive heart failure (03505103) CHF (congestive heart failure) (I50.9) Active confirmed Problem 55461234 Hypercalcemia (E83.52) Active confirme d Problem 3846349 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 Problem 77923715 Essential hypert ension (I10) Active confirmed Problem 060466886 Acquired hypothyroidism (E03.9) Active confirmed Problem 33572223 Type 2 diabetes mellitus without complication (E11.9) Active confirmed Problem 188042377 Hypoglycemia (E16.2) Active confirmed Problem 76087066 Iron deficiency anemia, unspecified iron deficiency anemia type (D50.9) Active confirmed Problem 878217973 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 Problem Aortic valve disorder (8147752) Severe aortic stenosis (I35.0) Active confirmed Problem 818794013 Rising PSA level (R97.20) Active confirmed Problem 967567898 Pure hypercholesterolemia (E78.00) Active confirmed Problem 170363682 Imbalance (R26.89) Active confirmed Problem 449103865 Frequent falls (R29.6) Active confirm ed Problem History of heart valve repair with prosthesis (96395296013378 8) H/O aortic valve replacement (Z95.2) Active confirmed Problem 79555598 Aneurysm artery, 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 Vital Signs Blood pressure diastolic 60 mm Hg 01/20/2025 Height 67 in 01/20/2025 Blood pressure systolic 112 mm Hg 01/20/2025 Weight 160 lbs 01/20/2025 BMI 25.06 kg/m2 01/20/2025 Encounters Encounter Location Date Provider Diagnosis Orestes Alex MD [address] [place] [address] [id number] 06/20/2024 Orestes Alex Acquired hypothyroid ism E03.9 ; Type 2 diabetes mellitus without complication E11.9 ; Prostatism N40.0 ; Essential hypertension I10 ; Pure hypercholesterolemia E78.00 and Lymphocytosis D72.820 Orestes Alex MD [address] [place] [address] [id number] 06/27/2024 Orestes Alex Elevated BUN R79.9 ; Type 2 diabetes mellitus without complication E11.9 ; Essential hypertension I10 ; Prostatism N40.0 ; Pure hypercholesterolemia E78.00 ; Colon cancer screening Z12.11 ; Depression screening Z13.31 and Atrial fibrillation I48.91 Orestes Alex MD [address] [place] [address] [id number] 07/24/2024 Orestes Alex Elevated BUN R79.9 Orestes Alex MD [address] [place] [address] [id number] 12/01/2024 Orestes Alex Pure hypercholestero lemia E78.00 Orestes Alex MD [address] [id number] 01/09/2025 Orestes Alex Elevated LFTs R79.89 Orestes Alex MD [address] [place] [address] [id number] 02/13/2025 Orestes Alex Elevated liver enzym es R74.8 and Encounter for administration of vaccine Z23 Orestes Alex MD [address] [place] [address] [id number] 03/17/2024 Orestes Alex Type 2 diabetes [place] itus without complication E11.9 and Frequent falls R29.6 Orestes Alex MD [address] [place] [address] [id number] 08/25/2024 Orestes Alex Type 2 diabetes monroe itus without complication E11.9 and Insomnia G47.00 Orestes Alex MD [address] [place] [address] [id number] 12/04/2024 Orestes Alex Type 2 diabetes [place] itus without complication E11.9 ; Acquired hypothyroidism E03.9 ; Atrial fibrillation I48.91 ; Pure hypercholesterolemia E78.00 and Essential hypertension I10 Orestes Alex MD [address] [place] [address] [id number] 01/09/2025 Orestes Alex Type 2 diabetes monroe itus without complication E11.9 ; CHF (congestive heart failure) I50.9 and Lung mass R91.8 Orestes Alex MD [address] [place] [address] [id number] 01/20/2025 Orestes Alex Type 2 diabetes monroe itus without complication E11.9 and Pneumonia J18.9 Orestes Alex MD [address] [place] [address] [id number] 10/02/2024 Orestes Alex MD [address] [place] [address] [id number] 12/25/2024 Orestes Aelx Pneumonia J18.9 Orestes Alex MD [address] [place] [address] [id number] 12/31/2024 Orestes Alex MD [address] [place] [address] [id number] 02/02/2025 Orestes Alex MD [address] [place] [address] [id number] 02/17/2025 Orestes Alex Pneumonia J18.9 Assessments Encounter [...] Order Date Electrocardiogram (EKG) 03/31/2016 ECHO 05/23/2021 CT chest wo con 03/04/2025 XR chest 2V 12/25/2024 XR chest 2V 02/17/2025 Blood Urea Nitrogen 07/24/2024 Creatinine 07/24/2024 Future Test Test Name Order Date XR CHEST 2 VIEW PA & LAT 02/17/2025 Next Appt Details Provider Name:Orestes javier, 06/26/2025 07:15:00 AM, [address] [place] [address], [address], [place], [place], [phone], Provider Name:Orestes javier, 07/03/2025 01:30:00 PM, [address] [place] [address], [address], [place], [place], [phone], Insurance Providers Payer Name Payer Address Payer Phone Subscriber Number Group Number Insured Name Patient Relationship to Insured Coverage Start Date Coverage End Date [employer] [address] [place] [address] [id number] Delia Chávez Self - patient is the insured [employer] OF [employer] [address] [place] [address] [id number] Delia Chávez Self - patient is the insured Medical (General) History Medical History History ICD Code Hypothyroidism type II diabetes hypercholesterolemia colonoscopy 2008 not to have any more; C olonoscopy 01/09/19 - Dr. Allen cardiac cath october 2016 entirely normal sitrhondaip is esteban
--- OUTSIDE RECORDS SUMMARY | 2025-03-04 17:34 | XMS_ITS | Patient Health Record ---
Author Organization [facility] Address [address] [place] [address] Care Team Providers Care Refining Equipment Operator Name Role Phone Orestes Alex MD Primary Care Provider Yakelin Hernández, Xenia Unavailable [phone] Allergies Allergen (clinical drug ingredient) Drug/Non Drug [...] Problem Type II diabetes mellitus without complication (494554386) Type 2 diabetes mellitus without complications (E11.9) Active confirmed Vital Signs Blood pressure diastolic 67 mm Hg 12/04/2024 Height 5 ft 10 in in 12/04/2024 Blood pressure systolic 155 mm Hg 12/04/2024 Weight 147 lbs 12/04/2024 BMI 21.09 kg/m2 12/04/2024 Procedures Procedure Date Ordered Date Performed Result Body Sit e 32389-GZGFKBF NAIL, 6 OR MORE 05/26/2024 N/A 89551-Zbqswaod Plate 05/26/2024 N/A 42675-Hxkokaka Plate Each Additional 05/26/2024 N/A 70672-DGBWSJH NAIL, 6 OR MORE 12/04/2024 N/A Encounters Encounter Location Date Provider Diagnosis [address] [address] 05/26/2024 Xenia Black Tinea unguium B35.1 ; Ingrown nail L60.0 ; Type 2 diabetes mellitus without complications E11.9 ; Pain in right toe(s) M79.674 and Pain in left toe(s) M79.[address] [address] 12/04/2024 Xenia Black Tinea unguium B35.1 ; Type 2 diabetes mellitus without complications E11.9 ; Pain in right toe(s) M79.674 and Pain in left toe(s) M79.[address] [address] 12/04/2024 Xenia Black [address] [address] 01/26/2025 Xenia Black Assessments Encounter Date Diagnosis [...] X ray : Foot, right 3V 02/26/2013 64659-IDNKBJY NAIL, 6 OR MORE 04/30/2017 88801-ZMZYAXG NAIL, 6 OR MORE 06/18/2017 08088-CSSHWNR NAIL, 6 OR MORE 02/28/2018 61681-RGLQKQJ NAIL, 6 OR MORE 05/27/2018 69527-JEGBASG NAIL, 6 OR MORE 08/26/2018 01494-OONXBXK NAIL, 6 OR MORE 11/14/2018 28641-HHFRXYY NAIL, 6 OR MORE 02/13/2019 86978-QPAUCKL NAIL, 6 OR MORE 05/19/2019 57506-CFHABIQ NAIL, 6 OR MORE 10/16/2019 16355-GWGQJWA NAIL, 6 OR MORE 01/22/2020 06362-NGIEJGP NAIL, 6 OR MORE 04/26/2020 38244-VQQMWQV NAIL, 6 OR MORE 08/02/2020 61202-QVMJGVG NAIL, 6 OR MORE 10/28/2020 25309-JIJWCYI NAIL, 6 OR MORE 01/27/2021 80246-BXFLGYM NAIL, 6 OR MORE 05/09/2021 04493-BAHAJJG NAIL, 6 OR MORE 08/25/2021 37098-DLPBYCC NAIL, 6 OR MORE 03/09/2022 34771-OJPRIHA NAIL, 6 OR MORE 06/22/2022 15678-NIIWTCB NAIL, 6 OR MORE 10/23/2022 01643-XYUKKRV NAIL, 6 OR MORE 11/28/2021 84931-VRCJXDI NAIL, 6 OR MORE 02/22/2023 75152-UEEBQXV NAIL, 6 OR MORE 07/19/2023 77307-OBIEQQA NAIL, 6 OR MORE 10/25/2023 76953-SQDCCAT NAIL, 6 OR MORE 02/14/2024 10707-QPPPUAV NAIL, 6 OR MORE 05/26/2024 49856-IVTOGSF NAIL, 6 OR MORE 12/04/2024 03431-Arxijtnt Plate 05/26/2024 12237-Devnhozr Plate 10/25/2023 84054-Srmmhrrm Plate 07/19/2023 26755-Mpyievqd Plate 02/22/2023 45630-Aezhknbi Plate 11/28/2021 60362-Ozosssbc Plate 08/25/2021 01370-Mvuugkdh Plate 10/28/2020 60776-Nrnhnuvo Plate Each Additional 05232 I&D ABSCESS- SIMPLE,SINGLE 022 18224 I&D ABSCESS- SIMPLE,SINGLE 021 44209 I&D ABSCESS- SIMPLE,SINGLE 021 92446-Jith. Subungual Hematoma 9 Nail Panel 04/30/2017 Next Appt Details Provider Name:Xenia Hernández , 04/13/2025 03:30:00 PM, [address] [place] [address], [phone], Insurance Providers Payer Name Payer Address Payer Phone Subscriber Number Group Number Insured Name Patient Relationship to Insured Coverage Start Date Coverage End Date Medicare National [facility] [employer] [address] [facility] [place] [address] [id number] Richard Chávez Self - patient is the insured 1 [employer] [address] [place] [address] [phone] [id number] Richard Chávez Self - patient is the [...]
== END 2025-03-04 15:02 | disposition home or self-care (01) ==
LOC: HO.CT 15:01
PROVIDERS: PCP Internal Medicine; Visit Provider Nurse Practitioner Family
DX: R91.8 Other nonspecific abnormal finding of lung field (principal); Z87.01 Personal history of pneumonia (recurrent)
CPT/HCPCS: 71250

== ENCOUNTER → 2025-03-04 15:03 | Outpatient (BNV) | payer MEDICARE, SELFPAY ==
[2024-12-23 15:15] VITALS: BP 122/60; BP 134/60; BMI 24.7
== END ==
PROVIDERS: PCP Internal Medicine; Visit Provider Radiology Diagnostic Radiology
DX: J43.2 Centrilobular emphysema (principal)
CPT/HCPCS: 71250

== ENCOUNTER 2025-03-10 16:18 | Outpatient (REF) | payer MEDICARE, SELFPAY ==
--- OUTSIDE RECORDS SUMMARY | 2024-09-01 09:00 | XMS_ITS ---
Author Organization [facility] Address [address] [place] [address] Care Team Providers Care Chancery Clerk Name Role Phone Orestes Alex MD Primary Care Provider Xenia Rojas [phone] Mark Encounters Encounter Location Date Provider Diagnosis [address] [address] 09/01/2024 Xeniajessi Hernández Plan Of Treatment Next Appt Details Provider Name:Xenia Hernández , 04/13/2025 03:30:00 PM, [address] [place] [address], [phone], Progress Notes * Richard CAT WDOB:1935 (89 yo M)Acc No.[id number]:09/01/2024 Progress Note Patient: Richard HERRERA Provider: Sherita Hernández DPM :1935 A ge:89 Y S ex:Male Date:09/01/2024 Address[place] [place] Pcp:Orestes Alex MD Subjective: * Chief Complaints: [...] Hernández DPM Date: 0 09/01/2024 Generated for Morelia Ortega on: 0 03/10/2025 05:12 PM EDT
[2024-12-23 15:15] VITALS: BP 122/60; BP 134/60; BMI 24.7
--- OUTSIDE RECORDS SUMMARY | 2025-02-02 09:35 | XMS_ITS ---
Author Organization Orestes Alex MD Address [address] [place] [phone] Care Team Providers Care Operations Research Analyst Name Role Phone Orestes Alex Primary Care Provider [phone] REASON FOR VISIT bilateral ankle edema x 1 day Encounters Encounter Location Date Provider Diagnosis Orestes Alex MD [address] [place] [address] [place] [phone] 02/02/2025 Orestes Alex Plan Of Treatment Next Appt Details Provider Name:Orestes javier, 03/24/2025 02:00:00 PM, [address] [place] [address], Suite [facility], , [phone], Provider Name:Orestes javier, 06/26/2025 07:15:00 AM, [address] [place] [address], Suite [facility], , [phone], Provider Name:Orestes javier, 07/03/2025 01:30:00 PM, [address], [address], [place], [phone], Progress Notes * Delia CAT WDOB:1935 (89 yo M)Acc No.[id number]:02/02/2025 Patient: Delia HERRERA :1935 A ge:89 Y S ex:Male Address:[address] [place] [address], [place] [address] * true * Date: Generated for Morelia martell/Bernardino/eTransmitting on: 0 03/10/2025 05:13 PM EDT
--- OUTSIDE RECORDS SUMMARY | 2025-02-13 05:00 | XMS_ITS ---
Author Organization Orestes Alex MD Address [address] [place], [place] [phone] Care Team Providers Care Rock Contractor Name Role Phone Orestes Alex Primary Care Provider Results Component Value Reference Range Notes Liver Panel Reviewed date:02/13/2025 12:45:26 PM Interpretation: Performing Lab:[facility], [address] [place] [phone] Notes/Report: Bilirubin Total 0.9 0.0-1.0 mg/dL Bilirubin [...] Location Date Provider Diagnosis Orestes Alex MD [address] [place] [address] [address] [place] [id number] 02/13/2025 Orestes Alex Elevated liver enzym es R74.8 and Encounter for administration of vaccine Z23 Assessments Encounter Date Diagnosis (ICD Code) Assessment Notes Treatment Notes Treatment Clinical Notes Section Notes 02/13/2025 Elevated liver enzymes (ICD-10 - R74.8) 02/13/2025 Encounter for administration of vaccine (ICD-10 - Z23) Plan Of Treatment Next Appt Details Provider Name:Orestes javier, 03/24/2025 02:00:00 PM, [address] [place] [address], Suite [facility], [place], [place], [id number], Provider Name:Orestes javier, 06/26/2025 07:15:00 AM, [address] [place] [address], Suite [facility], [place], [place], [phone], Provider Name:Orestes javier, 07/03/2025 01:30:00 PM, [address] [place] [address], Suite [facility], [place], [place], [phone], Progress Notes * Delia CAT WDOB:1935 (89 yo M)Acc No.[id number]:02/13/2025 Progress Note Patient: Delia HERRERA Provider: Nicolette Alex MD :1935 A ge:89 Y S ex:Male Date:02/13/2025 Address:[address] [place] [address], [facility], [facility] Subjective: * Chief Complaints: * 1 . [...] * Procedure Codes: 3 6415 VENIPUNCT, ROUTINE*, 12735 FLU VACC PRSV FREE INC ANTIG, G0008 ADMN FLU VAC NO FEE SCHED SAME DAY * * The named appointment provid er may or may not be the originator of this progress note, and it is not deemed complete until electronically signed by the appointment provider. Sign off status: Pending * Provider: Nicolette Alex MD Date: 02/13/2025 Generated for Morelia martell/Bernardino/Reynaitting on: 03/10/2025 05:12 PM EDT
--- OUTSIDE RECORDS SUMMARY | 2025-02-17 09:00 | XMS_ITS ---
Author Organization Orestes Alex MD Address [address] [place] [phone] Care Team Providers Care Director Banking Name Role Phone Orestes Alex Primary Care Provider REASON FOR VISIT Repeat CXR Encounters Encounter Location Date Provider Diagnosis Orestes Alex MD [address] [place] [id number] 02/17/2025 Orestes Alex Pneumonia J18.9 Assessments Encounter [...] Next Appt Details Provider Name:Orestes Linda ier, 03/24/2025 02:00:00 PM, [address], [address], [place], [phone], Provider Name:Orestes Linda yaya, 06/26/2025 07:15:00 AM, [address], [address], [place], [phone], Provider Name:Orestes Linda ricardor, 07/03/2025 01:30:00 PM, [address], [place], [phone], Progress Notes * Delia CAT WDOB:1935 (89 yo M)Acc No.[id number]:02/17/2025 Patient: Delia HERRERA :1935 A ge:89 Y S ex:Male Address:[address] [place] [address] [place] [address] Subjective: * Chief Complaints: * R epeat CXR * Medical History: * Surgical History: * Hospitalization/Major Diagno stic Procedure: * Medications: Objective: * Vitals: * Physical Examination: Assessment: * Assessment: 1. P neumonia - J18.9 Plan: * Treatment: * Procedure Codes: * true * Date: Generated for Morelia martell/Bernardino/Reynaitting on: 0 03/10/2025 05:14 PM EDT
--- OUTSIDE RECORDS SUMMARY | 2025-03-05 07:15 | XMS_ITS ---
Author Organization [facility] Address [address] [place] [address] Care Team Providers Care Supervisor Paper Machine Name Role Phone Orestes Alex MD Primary Care Provider Xenia Rojas [phone] Encounters Encounter Location Date Provider Diagnosis [address] [address] 03/05/2025 Xenia Hernández Plan Of Treatment Next Appt Details Provider Name:Xenia Hernández , 04/13/2025 03:30:00 PM, [address] [place] [address], [phone], Progress Notes * Richard CAT WDOB:1935 (89 yo M)Acc No.[id number]:03/05/2025 Progress Note Patient: Richard HERRERA Provider: Sherita Hernández DPM :1935 A ge:89 Y S ex:Male Date:03/05/2025 Address[address] [phone] Pcp:Orestes Alex MD Subjective: * Chief Complaints: * * Medical History: Objective: * Vitals: Assessment: Plan: * Treatment: * Images: * The named appointment provid er may or may not be the originator of this progress note, and it is not deemed complete until electronically signed by the appointment provider. Sign off status: Pending * Provider: Sherita Hernández DPYen Date: 0 03/05/2025 Generated for Morelia martell/Bernardino/Delia on: 03/10/2025 05:13 PM EDT
--- OUTSIDE RECORDS SUMMARY | 2025-03-05 08:33 | XMS_ITS ---
Author Organization Orestes Alex MD Address [address] [place] [phone] Care Team Providers Care Pupil Personnel Services Director Name Role Phone Orestes Alex Primary Care Provider [phone] Medications Medication SIG (Take, Route, Frequency, Duration) Notes Start Date End Date Status Doxycycline Hyclate 100 MG 1 capsule Ora lly Once a day for 10 day(s) 03/05/2025 Active Encounters Encounter Location Date Provider Diagnosis Orestes Alex MD [address] [place], [place] [phone] 03/05/2025 Orestes Alex Plan Of Treatment Medication Medication Name Sig Start Date Stop Date Notes Doxycycline Hyclate 100 MG 1 capsule Ora lly Once a day for 10 day(s) 03/05/2025 Next Appt Details Provider Name:Orestes javier, 03/24/2025 02:00:00 PM, [address], [address], [place], [place], [phone], Provider Name:Orestes Linda ier, 06/26/2025 07:15:00 AM, [address], [address], [place], [phone], Provider Name:Orestes Linda ier, 07/03/2025 01:30:00 PM, [address], [address], [place], [phone], Progress Notes * Delia CAT WDOB:1935 (89 yo M)Acc No.[id number]:03/05/2025 Patient: Yen NOY Delai W :1935 A ge:89 Y S ex:Male Address:[address] [place] [address], [place] [address] * Refills Start Doxycycline Hyclate Capsule, 100 MG, Orally, 10, 1 capsule, Once a day, 10 day(s) * true * Date: Generated for Morelia martell/Bernardino/Zhangsmitting on: 0 03/10/2025 05:13 PM EDT
--- OUTSIDE RECORDS SUMMARY | 2025-03-05 08:34 | XMS_ITS ---
Author Organization Orestes Alex MD Address [address] [place] [phone] Care Team Providers Care Heavy Equipment Mechanic Name Role Phone Orestes Alex Primary Care Provider Encounters Encounter Location Date Provider Diagnosis Orestes Alex MD [address] [place] [phone] 03/05/2025 Orestes Alex Plan Of Treatment Next Appt Details Provider Name:Orestes javier, 03/24/2025 02:00:00 PM, [address] [place] [address], Suite [facility], [place], [place], [phone], Provider Name:Orestes javier, 06/26/2025 07:15:00 AM, [address] [place] [address], [address] [facility], [place], [place], [phone], Provider Name:Orestes javier, 07/03/2025 01:30:00 PM, [address], [address], [place], [id number], Progress Notes * Delia CAT WDOB:1935 (89 yo M)Acc No.[id number]:03/05/2025 Patient: Delia HERRERA :1935 A ge:89 Y S ex:Male Address:[address] [place] [address], [place] [address] * true * Date: Generated for Morelia martell/Bernardino/eTransmitting on: 0 03/10/2025 05:12 PM EDT
--- NOTE | ~2025-03-10 | XR_ITS ---
EXAMINATION: XR CHEST CLINICAL INFORMATION: pneumonia COMPARISON: 02/17/2025 CT chest 03/04/2025. TECHNIQUE: 2 views of the chest were obtained. FINDINGS: Borderline cardiac enlargement. Mediastinal and hilar contours appear normal. Aortic valve replacement in place. Lungs demonstrate chronic subpleural interstitial changes bilaterally. There are superimposed patchy opacities in the right midlung, left upper lung, and left base, which appear quite similar and unchanged from the prior examination. There is no effusion or pneumothorax. There is no focal osseous or soft tissue abnormality. XR/XR chest 2V IMPRESSION: 1. No significant interval change from 02/17/2025. Patchy opacities in the right midlung, left upper lung, and left base persist, superimposed upon subpleural interstitial lung disease. 2. Aortic valve replacement. Electronically signed by: Tirso Garcia MD 03/10/2025 04:48 PM EDT
--- OUTSIDE RECORDS SUMMARY | 2025-03-10 17:13 | XMS_ITS | Patient Health Record ---
Author Organization [facility] Address [address] [place] [phone] Care Team Providers Care Director Of Assessment Name Role Phone Orestes Alex MD Primary Care Provider Mario Way Unavailable [phone] Allergies Allergen (clinical drug ingredient) Drug/Non Drug [...] Problem Status W/U Status Risk Notes Problem 03469899 Rectal bleeding (K62.5) Active confirmed Problem 03498812 Change in bowel function (R19.4) Active confirmed Problem Anemia (660113741) Anemia (D64.9) Active confirmed Problem 78130226 Constipation, unspecified constipation type (K59.00) Active confirmed Problem 283508975 Anemia, unspecified type (D64.9) Active confirmed Plan [...] Date MEDICARE OF [place] [address] [facility] [place] [address] [id number] DELIA CAT Self - patient is the insured [employer] CLAIMS [address] [place] [address] [id number] DELIA CAT Self - patient is the [...]
--- OUTSIDE RECORDS SUMMARY | 2025-03-10 17:13 | XMS_ITS | Patient Health Record ---
Author Organization Orestes Alex MD Address [address] [place], [place] [id number] Care Team Providers Care Room Service Manager Name Role Phone Orestes Alex Primary Care Provider Allergies No Known Allergies Results Component Value Reference Range Notes Hemoglobin A1c Reviewed date:12/04/2024 01:29:14 PM Interpretation: Performing Lab: Notes/Report: Hemoglobin A1c 7.5 Complete Blood Count Auto Di ff Reviewed date:06/20/2024 05:40:23 PM Interpretation: Performing Lab:[facility], [address] [place] [address] Notes/Report: White Blood Count 7.8 4.8-10.8 X10*3/uL [...] NRBC Abs Auto 0.000 0.0-0.012 X10*3/uL Comprehensive [place]. Panel Fa st Reviewed date:06/27/2024 01:10:00 PM Interpretation:ZELALEM 06/27/24 Performing Lab:[facility], [address] [place] [phone] Notes/Report: Sodium 142 135-145 mmol/L Potassium 4.3 [...] Panel Reviewed date:06/20/2024 05:16:22 PM Interpretation: Performing Lab:[address] [address] Notes/Report: Triglycerides 117 <150 mg/dL Desirable Triglyceride: [...] (Free>4and<10) Reviewed date:06/20/2024 05:11:58 PM Interpretation: Performing Lab:[address] [address] Notes/Report: PSA,Total (Free>4and<10) 0.38 0.00-4.00 ng/mL A [...] Random Reviewed date:06/20/2024 05:11:49 PM Interpretation: Performing Lab:[address] [address] Notes/Report: Creatinine Urine 93.86 Microalbumin Urine 107.0 Microalbum/Creatinine Ratio Ur 113.9 <30 ug/mg cr Albumin/Creatinine Ratio Reference Ranges: Normal: < 30 ug/mg creatinine Microalbuminuria: 30 - 300 ug/mg creatinine Clinical Albuminuria: > 300 ug/mg creatinine Hemoglobin A1c Reviewed date:06/20/2024 05:12:06 PM Interpretation: Performing Lab:[address] [address] Notes/Report: Hemoglobin A1c % 7.3 <6.0 % [...] average glucose, using the formula of the G4H-Fhjbadm Average Glucose study (ADAG), Diabetes Care, Vol.31,#8, Jan. 2007 UA ClnCatch+Micro w/rflx Cul t Reviewed date:06/20/2024 05:38:57 PM Interpretation: Performing Lab:[address] [address] Notes/Report: Urine, Clean Catch Color Urine Yellow Appearance Urine Clear PH 5.5 5.0-9.0 Glucose Urine UA Negative Negative mg/dL Urine Blood Negative Negative Specific [place] - Urine 1.020 1.005-1.025 Urine Protein Trace Neg-Trace mg/dL Urine Ketones Negative Negative mg/dL Nitrite Urine Negative Negative Leukocyte Esterase Urine Negative Negative RBC Urine 0-2 0-2 /HPF WBC Urine 0-5 0-5 /HPF Squamous Epithelial Cell Urine 0-2 0-2 /HPF Bacteria Urine None Seen None Seen Hyaline Casts Urine 0-2 0-2 /LPF Liver Panel Reviewed date:12/01/2024 05:23:44 PM Interpretation: Performing Lab:[address], [place] [address] Notes/Report: Bilirubin Total 0.9 0.0-1.0 mg/dL Bilirubin Direct 0.4 0.0-0.5 mg/dL Aspartate Amino Transferase 41 5-37 U/L Alanine Aminotransferase 23 0-40 U/L Total Protein 7.3 6.5-8.0 g/dL Albumin Level 3.9 3.5-5.0 g/dL Alkaline Phosphatase 195 39-117 U/L Lipid Panel with Reflex Reviewed date:12/02/2024 08:16:58 AM Interpretation: Performing Lab:[address] [address] Notes/Report: Triglycerides 127 <150 mg/dL Desirable Triglyceride: [...] Panel Reviewed date:02/13/2025 11:34:17 AM Interpretation:02-13-2025 Performing Lab:[facility], [address] [place] [address] Notes/Report: Bilirubin Total 0.7 0.0-1.0 mg/dL Bilirubin Direct 0.4 0.0-0.5 mg/dL Aspartate Amino Transferase 87 5-37 U/L Alanine Aminotransferase 78 0-40 U/L Total Protein 6.6 6.5-8.0 g/dL Albumin Level 3.4 3.5-5.0 g/dL Alkaline Phosphatase 154 39-117 U/L Liver Panel Reviewed date:02/13/2025 12:45:26 PM Interpretation: Performing Lab:[facility], [address] [place] [address] Notes/Report: Bilirubin Total 0.9 0.0-1.0 mg/dL Bilirubin [...] date:10/29/2024 03:54:47 PM Interpretation: Performing Lab: Notes/Report: [address] [address] XRay Report Signed Patient: Delia Chávez MR#: [id number] : 1935 Acct:[id number] Age/Sex: 89 / M ADM Date: 10/28/24 Loc: DYLAN Attending Dr: Cm Rivas NP Ordering Physician: Cm Rivas NP Date of Service: 10/28/24 Procedure(s): XR chest 2V Accession Number(s): [id number] cc: Orestes Alex MD; Cm Rivas NP [...] 10/28/24 1550 DD/ 1536 TD/TT: 10/28/24 1542 Market Analyst: [place] [address] XRay Report Signed Patient: Delia Chávez MR#: [id number] : 1935 Acct:[id number] Age/Sex: 89 / M ADM Date: 10/28/24 Loc: HOLEILA Attending Dr: Cm Rivas NP Ordering Physician: Cm Rivas NP Date of Service: 10/28/24 Procedure(s): XR [facility] [facility] 2V Accession Number(s): [id number] cc: Orestes Alex MD; Cm Rivas NP [...] 10/28/24 1550 DD/ 1536 TD/TT: 10/28/24 1542 Market Analyst: Aubree Morales Reviewed date:12/01/2024 12:26:31 PM Interpretation: Performing Lab:[facility], [address] [place] [address] Notes/Report: Aubree Morales See Note Specimen held untested for 24 hours; Call to request Chemistry testing. Complete Blood Count Auto Di ff Reviewed date:12/24/2024 03:54:40 PM Interpretation: Performing Lab:[facility], [address] [place] [address] Notes/Report: White Blood Count 13.8 4.8-10.8 X10*3/uL [...] INR Reviewed date:12/25/2024 12:13:33 PM Interpretation: Performing Lab:[facility], [address] [place] [address] Notes/Report: Prothrombin Time 16.4 10.9-12.4 SEC INTERNATIONAL [...] Time Reviewed date:12/25/2024 12:56:06 PM Interpretation: Performing Lab:[facility], [address] [place] [address] Notes/Report: Partial Thromboplastin Time 37.1 26.0-36.8 SEC For information regarding the monitoring of direct thrombin inhibitors, please refer to Pharmacy. Comprehensive Met. Panel Reviewed date:12/24/2024 04:05:16 PM Interpretation: Performing Lab:[facility], [address] [place] [address] Notes/Report: Sodium 132 135-145 mmol/L Potassium 4.2 [...] Acid Reviewed date:12/25/2024 12:13:13 PM Interpretation: Performing Lab:[address] [address] Notes/Report: Lactic Acid 3.1 0.5-2.0 mmol/L Critical value for test(s): LACTA Results called to and read back by: SHUN Person calling: ANA Date: 12.24.24 Time: 1919 Magnesium Reviewed date:12/24/2024 03:54:51 PM Interpretation: Performing Lab:[address] [address] Notes/Report: Magnesium 1.6 1.6-2.6 mg/dL Troponin-I High Sensitivity Reviewed date:12/24/2024 04:02:15 PM Interpretation: Performing Lab:[address] [address] Notes/Report: Troponin-I High Sensitivity 78.5 <3.5-35.0 ng/L The Joseph high sensitivity Troponin-I results should be used in conjunction with other diagnostic information such as ECG, clinical observations and information, and patient symptoms to aid in the diagnosis of [place]. B Type Natriuretic Peptide Reviewed date:12/24/2024 04:01:59 PM Interpretation: Performing Lab:[address] [address] Notes/Report: B Type Natriuretic Peptide 227 <100 pg/mL SARS-CoV2/FLU/RSV Reviewed date:12/25/2024 12:13:46 PM Interpretation: Performing Lab:[address] [address] Notes/Report: Influenza A PCR NEGATIVE Negative Influenza [...] by authorized laboratories. Testing performed on the [employer] GeneXpert utilizing real-time RT-PCR. All SARS CoV2 and positive influenza A/B results are reported to [facility]. Blood Culture (First) Reviewed date:12/30/2024 12:35:51 PM Interpretation: Performing Lab:[address] [address] Notes/Report: Blood Culture (First) No growth after 5 days. Blood Culture (Second) Reviewed date:12/30/2024 12:38:40 PM Interpretation: Performing Lab:[address] [address] Notes/Report: Blood Culture (Second) No growth after 5 days. Lactic Acid-LAB USE ONLY Reviewed date:12/25/2024 12:11:17 PM Interpretation: Performing Lab:[address] [address] Notes/Report: Lactic Acid-LAB USE ONLY 2.2 0.5-2.0 mmol/L Critical value for test(s): LACTA Results called to and read back by: OMARWYen Person calling: ANA Date: 12.24.24 Time: 2245 Venous Blood Gases - POC Reviewed date:12/24/2024 03:41:59 PM Interpretation: Performing Lab:[address] [address] Notes/Report: VBG pH 7.36 7.32-7.43 METER #: [id number] additional_comment: Cb rojascr VBG pCO2 46 METER #: [id number] additional_comment: Cb rojascr VBG pO2 34 METER #: [id number] additional_comment: Cb rojascr VBG Base Excess 1.2 METER #: [id number] additional_comment: Cb rojascr VBG HCO3 26 22-26 mmol/L METER #: [id number] additional_comment: Cb rojascr VBG O2 % Saturation 41.0 METER #: [id number] additional_comment: Cb rojascr D Dimer High Sensitivity Reviewed date:12/25/2024 12:13:21 PM Interpretation: Performing Lab:[facility], [address] [place] [address] Notes/Report: D Dimer High Sensitivity 469 D-DIMER [...] date:12/25/2024 12:14:35 PM Interpretation: Performing Lab: Notes/Report: [address] [address] [address] Scan Report Signed Patient: Delia Chávez MR#: [id number] : 1935 Acct:[id number] Age/Sex: 89 / M ADM Date: 12/24/24 Loc: .ED Attending Dr: Ordering Physician: Raul Chery MD Date of Service: 12/24/24 Procedure(s): CT chest wo IV con Accession Number(s): [id number] cc: Orestes Alex MD; Raul Chery MD Report Number: [id number]: Total DLP = 291.00 mGy-cm CLINICAL HISTORY: Left lung mass? CT chest without contrast Comparison: CR/SR - XR CHEST 1 VIEW - 12/24/24 15:46 EDT CR/OK/SR - XR CHEST 2V - 5/20/25 15:46 [...] in OV> 12/24/242127 DD/ 25 TD/TT: 12/24/242125 Market Analyst: [place] [address] CT Scan Report Signed Patient: Delia Chávez MR#: [id number] : 1935 Acct:[id number] Age/Sex: 89 / M ADM Date: 12/24/24 Loc: .ED Attending Dr: Ordering Physician: Raul Chery MD Date of Service: 12/24/24 Procedure(s): CT [facility] wo IV con Accession Number(s): [id number] cc: Orestes Alex MD; Raul Chery MD Report Number: [id number]: Total DLP = 291.00 mGy-cm CLINICAL HISTORY: Le ft lung mass? CT chest without contrast Comparison: CR/SR - XR CHEST 1 VIEW - 12/24/24 15:46 EDT CR/OK/SR - XR CHEST 2V - 10/28/24 15:46 [...] in OV> 12/24/242127 DD/ 25 TD/TT: 12/24/242125 Market Analyst: XR chest 1V Reviewed date:12/24/2024 04:10:13 PM Interpretation: Performing Lab: Notes/Report: [address] [address] XRay Report Signed Patient: Delia Chávez MR#: [id number] : 1935 Acct:[id number] Age/Sex: 89 / M ADM Date: 12/24/24 Loc: .ED Attending Dr: Ordering Physician: Generic ED Physician Date of Service: 12/24/24 Procedure(s): XR chest 1V Accession Number(s): [id number] cc: Orestes Alex MD; Generic ED Physician [...] 12/24/24 1550 DD/ 1446 TD/TT: 12/24/24 1544 Market Analyst: [address] [address] XRay Report Signed Patient: Delia Chávez MR#: [id number] : 1935 Acct:[id number] Age/Sex: 89 / M ADM Date: 12/24/24 Loc: .ED Attending Dr: Ordering Physician: Generic ED Physician Date of Service: 12/24/24 Procedure(s): XR [facility] [facility] 1V Accession Number(s): [id number] cc: Orestes Alex MD; Generic ED Physician [...] 12/24/24 1550 DD/ 1446 TD/TT: 12/24/24 1544 Market Analyst: Complete Blood Count Auto Di ff Reviewed date:12/25/2024 05:07:41 PM Interpretation: Performing Lab:[facility], [address] [place] [address] Notes/Report: White Blood Count 13.0 4.8-10.8 X10*3/uL [...] Panel Reviewed date:12/25/2024 12:53:03 PM Interpretation: Performing Lab:[facility], [address] [place] [address] Notes/Report: Sodium 135 135-145 mmol/L Potassium 3.8 [...] Sensitivity Reviewed date:12/25/2024 05:06:12 PM Interpretation: Performing Lab:[facility], [address] [place] [address] Notes/Report: Troponin-I High Sensitivity 43.7 <3.5-35.0 ng/L The [place] high sensitivity Troponin-I results should be used in conjunction with other diagnostic information such as ECG, clinical observations and information, and patient symptoms to aid in the diagnosis of [place]. Glucose, Whole Blood Reviewed date:12/25/2024 12:10:35 PM Interpretation: Performing Lab:[facility], [address] [place] [address] Notes/Report: Glucose, Whole Blood 201 60-115 mg/dL METER # : [id number] Lactic Acid-LAB USE ONLY Reviewed date:12/25/2024 12:10:52 PM Interpretation: Performing Lab:[facility], [address] [place] [address] Notes/Report: Lactic Acid-LAB USE ONLY 3.8 0.5-2.0 mmol/L Critical LACTIC ACID sent by a secure message and confirmed by KARLOS/GUILHERME 12/25/24 0131 Tech:VERA Glucose, Whole Blood Reviewed date:12/25/2024 05:04:54 PM Interpretation: Performing Lab:[facility], [address] [place] [address] Notes/Report: Glucose, Whole Blood 189 60-115 mg/dL METER # : [id number] Glucose, Whole Blood Reviewed date:12/25/2024 05:05:38 PM Interpretation: Performing Lab:[facility], [address] [place] [address] Notes/Report: Glucose, Whole Blood 161 60-115 mg/dL METER # : [id number] Glucose, Whole Blood Reviewed date:12/26/2024 04:12:43 PM Interpretation: Performing Lab:[facility], [address] [place] [address] Notes/Report: Glucose, Whole Blood 167 60-115 mg/dL METER # : [id number] Complete Blood Count Auto Di ff Reviewed date:12/26/2024 03:08:03 PM Interpretation: Performing Lab:[facility], [address] [place] [address] Notes/Report: White Blood Count 10.9 4.8-10.8 X10*3/uL [...] Panel Reviewed date:12/26/2024 03:07:56 PM Interpretation: Performing Lab:[address] [address] Notes/Report: Sodium 137 135-145 mmol/L Potassium 3.7 [...] Blood Reviewed date:12/26/2024 03:07:47 PM Interpretation: Performing Lab:[address] [address] Notes/Report: Glucose, Whole Blood 163 60-115 mg/dL METER # : [id number] Glucose, Whole Blood Reviewed date:12/26/2024 12:31:38 PM Interpretation: Performing Lab:[address] [address] Notes/Report: Glucose, Whole Blood 214 60-115 mg/dL METER # : [id number] Glucose, Whole Blood Reviewed date:12/26/2024 04:16:50 PM Interpretation: Performing Lab:[address] [address] Notes/Report: Glucose, Whole Blood 162 60-115 mg/dL METER # : [id number] Glucose, Whole Blood Reviewed date:12/27/2024 05:26:03 PM Interpretation: Performing Lab:[address] [place] [address] Notes/Report: Glucose, Whole Blood 147 60-115 mg/dL METER # : [id number] Complete Blood Count Auto Di ff Reviewed date:12/27/2024 05:41:08 PM Interpretation: Performing Lab:[address] [address] Notes/Report: White Blood Count 11.4 4.8-10.8 X10*3/uL [...] Panel Reviewed date:12/27/2024 05:38:02 PM Interpretation: Performing Lab:[facility], [address] [place] [address] Notes/Report: Sodium 139 135-145 mmol/L Potassium 3.7 [...] Blood Reviewed date:12/27/2024 05:32:13 PM Interpretation: Performing Lab:[facility], [address] [place] [address] Notes/Report: Glucose, Whole Blood 161 60-115 mg/dL METER # : [id number] Aubree Morales Reviewed date:12/27/2024 05:27:08 PM Interpretation: Performing Lab:[facility], [address] [place] [address] Notes/Report: Aubree Morales See Note Specimen held untested for 24 hours; Call to request Chemistry testing. Glucose, Whole Blood Reviewed date:12/27/2024 04:51:49 PM Interpretation: Performing Lab:[facility], [address] [place] [address] Notes/Report: Glucose, Whole Blood 265 60-115 mg/dL METER # : [id number] XR chest 2V Reviewed date:01/09/2025 01:45:09 PM Interpretation: Performing Lab: Notes/Report: [address] [place] [address] XRay Report Signed Patient: Delia Chávez MR#: [id number] : 1935 Acct:[id number] Age/Sex: 89 / M ADM Date: 01/09/25 Loc: KARRIEAY Attending Dr: Orestes Alex MD Ordering Physician: Orestes Alex MD Date of Service: 01/09/25 Procedure(s): XR chest 2V Accession Number(s): [id number] cc: Orestes Alex MD EXAMINATION: XR CHEST [...] 01/09/25 1256 DD/ 1222 TD/TT: 01/09/25 1230 Market Analyst: [address] [address] XRay Report Signed Patient: Delia Chávez MR#: [id number] : 1935 Acct:[id number] Age/Sex: 89 / M ADM Date: 01/09/25 Loc: DYLAN Attending Dr: Orestes Alex MD Ordering Physician: Orestes Alex MD Date of Service: 01/09/25 Procedure(s): XR [facility] [facility] 2V Accession Number(s): [id number] cc: Orestes Alex MD EXAMINATION: XR CHEST [...] 01/09/25 1256 DD/ 1222 TD/TT: 01/09/25 1230 Market Analyst: XR chest 2V Reviewed date:02/17/2025 01:06:15 PM Interpretation: Performing Lab: Notes/Report: [address] [address] XRay Report Signed Patient: Delia Chávez MR#: [id number] : 1935 Acct:[id number] Age/Sex: 89 / M ADM Date: 02/17/25 Loc: DYLAN Attending Dr: Orestes Aelx MD Ordering Physician: Orestes Alex MD Date of Service: 02/17/25 Procedure(s): XR chest 2V Accession Number(s): [id number] cc: Orestes Alex MD Reason for Exam: [...] 02/17/25 1210 DD/ 1140 TD/TT: 02/17/25 1143 Market Analyst: [place] [address] XRay Report Signed Patient: Delia Chávez MR#: [id number] : 1935 Acct:[id number] Age/Sex: 89 / M ADM Date: 02/17/25 Loc: HO.XRAY Attending Dr: Orestes Alex MD Ordering Physician: Orestes Alex MD Date of Service: 02/17/25 Procedure(s): XR [facility] [facility] 2V Accession Number(s): [id number] cc: Orestes Alex MD Reason for Exam: [...] 02/17/25 1210 DD/ 1140 TD/TT: 02/17/25 1143 Market Analyst: CT chest wo con Reviewed date:03/05/2025 12:38:08 PM Interpretation: Performing Lab: Notes/Report: [address] [address] [address] Scan Report Signed Patient: Delia Chávez MR#: [id number] : 1935 Acct:[id number] Age/Sex: 89 / M ADM Date: 03/04/25 Loc: HO.CT Attending Dr: Kerline Ceja NP Ordering Physician: Kerline Ceja NP Date of Service: 03/04/25 Procedure(s): CT chest wo IV con Accession Number(s): [id number] cc: Orestes Alex MD; Kerline Ceja NP Report Number: [id number]: Total DLP = 123.00 mGy-cm Reason for [...] 03/04/25 1637 DD/ 1510 TD/TT: 03/04/25 1542 Market Analyst: [address] [address] [address] Scan Report Signed Patient: Delia Chávez MR#: [id number] : 1935 Acct:[id number] Age/Sex: 89 / M ADM Date: 03/04/25 Loc: HO.CT Attending Dr: Yuliya Ceja NP Ordering Physician: Kerline Ceja NP Date of Service: 03/04/25 Procedure(s): CT [facility] wo IV con Accession Number(s): [id number] cc: Orestes Alex MD; Kerline Ceja NP Report Number: [id number]: Total DLP = 123.00 mGy-cm Reason for Exam: - Personal history of pneumonia (recurrent) EXAMINATION: CT CHEST WITHOUT CONTRAST CLINICAL INFORMATION: - Personal history of pneumonia (recurrent) COMPARISON: [...] 03/04/25 1637 DD/ 1510 TD/TT: 03/04/25 1542 Market Analyst: XR chest 2V (Not yet review ed by provider) Interpretation: Performing Lab: Notes/Report: [address] [address] XRay Report Signed Patient: Delia Chávez MR#: [id number] : 1935 Acct:[id number] Age/Sex: 89 / M ADM Date: 03/10/25 Loc: HO.ROSALIO Attending Dr: Orestes Alex MD Ordering Physician: Orestes Alex MD Date of Service: 03/10/25 Procedure(s): XR chest 2V Accession Number(s): [id number] cc: Orestes Alex MD Reason for Exam: pneumonia EXAMINATION: XR CHEST CLINICAL INFORMATION: pneumonia COMPARISON: 02/17/2025 CT chest 03/04/2025. TECHNIQUE: 2 views of the chest were obtained. FINDINGS: Borderline cardiac enlargement. Mediastinal and hilar contours appear normal. Aortic valve replacement in place. Lungs demonstrate chronic subpleural interstitial changes bilaterally. There are superimposed patchy opacities in the right midlung, left upper lung, and left base, which appear quite similar and unchanged from the prior examination. There is no effusion or pneumothorax. There is no focal osseous or soft tissue abnormality. XR/XR chest 2V IMPRESSION: 1. No significant interval change from 02/17/2025. Patchy opacities in the right midlung, left upper lung, and left base persist, superimposed upon subpleural interstitial lung disease. 2. Aortic valve replacement. Electronically signed by: Tirso Garcia MD 03/10/2025 04:48 PM EDT RP Dictated By: Tirso Garcia MD Signed By: <Electronically signed by Tirso Garcia MD in OV> 03/10/25 1648 DD/ 1636 TD/TT: 03/10/25 1639 Market Analyst: [place] [address] XRay Report Signed Patient: Delia Chávez MR#: [id number] : 1935 Acct:[id number] Age/Sex: 89 / M ADM Date: 03/10/25 Loc: DYLAN Attending Dr: Orestes Alex MD Ordering Physician: Orestes Alex MD Date of Service: 03/10/25 Procedure(s): XR [facility] [facility] 2V Accession Number(s): [id number] cc: Orestes Alex MD Reason for Exam: pneumonia EXAMINATION: XR CHEST CLINICAL INFORMATION: pneumonia COMPARISON: 02/17/2025 CT chest 03/04/2025. TECHNIQUE: 2 views of the chest were obtained. FINDINGS: Borderline cardiac enlargement. Mediastinal and hilar contours appear normal. Aortic valve replacement in place. Lungs demonstrate chronic subpleural interstitial changes bilaterally. There are superimpos ed patchy opacities in the right midlung, left upper lung, and left base, which appear quite similar and unchanged from the prior examination. There is no effusion or pneumothorax. There is no focal osseous or soft tissue abnormality. X R/XR chest 2V IMPRESSION: 1. No significant interval change from 02/17/2025. Patchy opacities in the right midlung, l eft upper lung, and left base persist, superimposed upon subpleural interstitial lung disease. 2. Aortic valve replacement. Electronically alex d by: Tirso Garcia MD 03/10/2025 04:48 PM EDT RP Dictated By: Tirso Garcia MD Signed By: <Electronically signed by Tirso Garcia MD in OV> 03/10/25 1648 DD/ 1636 TD/TT: 03/10/25 1639 Market Analyst: Reason For Referral No Information Medications Medication SIG (Take, Route, Frequency, Duration) Notes Start Date End Date Status Doxycycline Hyclate 100 MG 1 capsule Ora lly Once a day for 10 day(s) 03/05/2025 Active SITagliptin 50 MG 1tablets Orally Once [...] Administered Fluarix Quadrivalent IM Intramuscular 02/13/2014 Adminsudhakar red Prevnar 13 IM Intramuscular 09/10/2014 Administered Fluarix Quadrivalent IM Intramuscular 03/08/2015 Administe red Fluarix Quadrivalent IM Intramuscular 03/21/2016 Administe red TDaP IM Intramuscular 03/31/2016 Administered Fluarix Quadrivalent IM Intramuscular 02/13/2017 Administe red Shingrix IM Intramuscular 12/06/2017 Administered [facility] [address] [place] Fluarix Quadrivalent IM Intramuscular 03/05/2018 Administe red Shingrix Unknown 02/11/2018 Administered PPSV23 (Pnemovax) IM Intramuscular 04/16/2018 Administered Fluarix Quadrivalent IM Intramuscular 03/03/2019 Adminsudhakar red Influenza High Dose IM Intramuscular 02/20/2020 Administer ed Covid Vaccine Unknown 07/16/2020 Administered [facility] Covid Vaccine Unknown [...] W/U Status Risk Notes Problem Atrial fibrillation (49538326) Atrial fibrillation (I48.91) Active confirmed Problem 261793911 Thrombocytopenia (D69.6) Active confirmed Problem 69310118 Lymphocytosis (D72.820) Active confirmed Problem 01873341 Prostatism (N40.0) Active confirmed Problem Insomnia (892212955) Insomnia (G47.00) Active confirmed Problem Congestive heart failure (32633616) CHF (congestive heart failure) (I50.9) Active confirmed Problem 64618729 Hypercalcemia (E83.52) Active confirme d Problem 6223746 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 Problem 47884380 Essential hypert ension (I10) Active confirmed Problem 851229295 Acquired hypothyroidism (E03.9) Active confirmed Problem 42902223 Type 2 diabetes mellitus without complication (E11.9) Active confirmed Problem 538463940 Hypoglycemia (E16.2) Active confirmed Problem 46791816 Iron deficiency anemia, unspecified iron deficiency anemia type (D50.9) Active confirmed Problem 184572628 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 Problem Aortic valve disorder (5157628) Severe aortic stenosis (I35.0) Active confirmed Problem 908568721 Rising PSA level (R97.20) Active confirmed Problem 705255373 Pure hypercholesterolemia (E78.00) Active confirmed Problem 541298281 Imbalance (R26.89) Active confirmed Problem 764200511 Frequent falls (R29.6) Active confirm ed Problem History of heart valve repair with prosthesis ([id number] 8) H/O aortic valve replacement (Z95.2) Active confirmed Problem 28316820 Aneurysm artery, 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 Vital Signs Blood pressure diastolic 60 mm Hg 01/20/2025 Height 67 in 01/20/2025 Blood pressure systolic 112 mm Hg 01/20/2025 Weight 160 lbs 01/20/2025 BMI 25.06 kg/m2 01/20/2025 Encounters Encounter Location Date Provider Diagnosis Orestes Alex MD [address] [place], [place] [id number] 06/20/2024 Orestes Alex Acquired hypothyroid ism E03.9 ; Type 2 diabetes mellitus without complication E11.9 ; Prostatism N40.0 ; Essential hypertension I10 ; Pure hypercholesterolemia E78.00 and Lymphocytosis D72.820 Orestes Alex MD [address] [place] [id number] 06/27/2024 Orestes Alex Elevated BUN R79.9 ; Type 2 diabetes mellitus without complication E11.9 ; Essential hypertension I10 ; Prostatism N40.0 ; Pure hypercholesterolemia E78.00 ; Colon cancer screening Z12.11 ; Depression screening Z13.31 and Atrial fibrillation I48.91 Orestes Alex MD [address] [place] [id number] 07/24/2024 Orestes Alex Elevated BUN R79.9 Orestes Alex MD [address] [place] [address] [id number] 12/01/2024 Orestes Alex Pure hypercholestero lemia E78.00 Orestes Alex MD [address] [place] [address] [id number] 01/09/2025 Orestes Alex Elevated LFTs R79.89 Orestes Alex MD [address] [place] [address] [id number] 02/13/2025 Orestes Alex Elevated liver enzym es R74.8 and Encounter for administration of vaccine Z23 Orestes Alex MD [address] [place] [address] [id number] 03/17/2024 Orestes Alex Type 2 diabetes monroe itus without complication E11.9 and Frequent falls R29.6 Orestes Alex MD [address] [place] [address] [id number] 08/25/2024 Orestes Alex Type 2 diabetes monroe itus without complication E11.9 and Insomnia G47.00 Orestes Alex MD [address] [place] [address] [id number] 12/04/2024 Orestes Alex Type 2 diabetes monroe itus without complication E11.9 ; Acquired hypothyroidism E03.9 ; Atrial fibrillation I48.91 ; Pure hypercholesterolemia E78.00 and Essential hypertension I10 Orestes Alex MD [address] [place] [address] [id number] 01/09/2025 Orestes Alex Type 2 diabetes monroe itus without complication E11.9 ; CHF (congestive heart failure) I50.9 and Lung mass R91.8 Orestes Alex MD [address] [place] [address] [id number] 01/20/2025 Orestes Alex Type 2 diabetes monroe itus without complication E11.9 and Pneumonia J18.9 Orestes Alex MD [address] [place] [address] [id number] 10/02/2024 Orestes Alex MD [address] [place] [address] [id number] 12/25/2024 Orestes Alex Pneumonia J18.9 Orestes Alex MD [address] [place] [address] [id number] 12/31/2024 Orestes Alex MD [address] [place] [address] [id number] 02/02/2025 Orestes Alex MD [address] [place] [address] [id number] 02/17/2025 Orestes Alex Pneumonia J18.9 Orestes Alex MD [address] [place] [address] [id number] 03/05/2025 Orestes Alex MD [address] [place] [address] [id number] 03/05/2025 Orestes Alex Assessments Encounter Date Diagnosis (ICD [...] chest 2V 12/25/2024 XR chest 2V 02/17/2025 XR chest 2V 03/10/2025 Blood Urea Nitrogen 07/24/2024 Creatinine 07/24/2024 Future Test Test Name Order Date XR CHEST 2 VIEW PA & LAT 02/17/2025 Next Appt Details Provider Name:Orestes javier, 03/24/2025 02:00:00 PM, [address] [place] [address], [address], [phone], Provider Name:Orestes Linda ier, 06/26/2025 07:15:00 AM, [address] [place] [address], [address], [phone], Provider Name:Orestes silvar, 07/03/2025 01:30:00 PM, [address] [place] [address], [address], [phone], Insurance Providers Payer Name Payer Address Payer Phone Subscriber Number Group Number Insured Name Patient Relationship to Insured Coverage Start Date Coverage End Date MED[employer] [address] [place] [address] [id number] Delia Chávez Self - patient is the insured [employer] [address] [place] [address] [id number] Delia Chávez Self - patient is the insured Medical (General) History Medical History History ICD Code Hypothyroidism type II diabetes hypercholesterolemia colonoscopy 2008 not to have any more; C olonoscopy 01/09/19 - Dr. Allen cardiac cath october 2016 entirely normal sitiglip is esteban
--- OUTSIDE RECORDS SUMMARY | 2025-03-10 17:14 | XMS_ITS | Patient Health Record ---
Author Organization [facility] Address [address] [place] [address] Care Team Providers Care Machine Rigger Name Role Phone Orestes Alex MD Primary Care Provider Yakelin Hernández, Xenia Unavailable [phone] Allergies Allergen (clinical drug ingredient) Drug/Non Drug [...] Problem Type II diabetes mellitus without complication ([id number]) Type 2 diabetes mellitus without complications (E11.9) Active confirmed Vital Signs Blood pressure diastolic 67 mm Hg 12/04/2024 Height 5 ft 10 in in 12/04/2024 Blood pressure systolic 155 mm Hg 12/04/2024 Weight 147 lbs 12/04/2024 BMI 21.09 kg/m2 12/04/2024 Procedures Procedure Date Ordered Date Performed Result Body Sit e 38130-ZDMSGRA NAIL, 6 OR MORE 05/26/2024 N/A 68881-Ijqwyqvq Plate 05/26/2024 N/A 75016-Owkjzlgy Plate Each Additional 05/26/2024 N/A 81076-FZQDTLV NAIL, 6 OR MORE 12/04/2024 N/A Encounters Encounter Location Date Provider Diagnosis [address] [address] 05/26/2024 Xenia Black Tinea unguium B35.1 ; Ingrown nail L60.0 ; Type 2 diabetes mellitus without complications E11.9 ; Pain in right toe(s) M79.674 and Pain in left toe(s) M79.[address] [address] 12/04/2024 Xenia Black Tinea unguium B35.1 ; Type 2 diabetes mellitus without complications E11.9 ; Pain in right toe(s) M79.674 and Pain in left toe(s) M79.[address] [address] 12/04/2024 Xenia Black [address] [phone] 01/26/2025 Xenia Black Assessments Encounter Date Diagnosis [...] X ray : Foot, right 3V 02/26/2013 37116-RSLGCSR NAIL, 6 OR MORE 04/30/2017 98975-WMVJZCX NAIL, 6 OR MORE 06/18/2017 63972-IYDFCLC NAIL, 6 OR MORE 02/28/2018 77026-INBSAKP NAIL, 6 OR MORE 05/27/2018 70144-MQHVZTH NAIL, 6 OR MORE 08/26/2018 18100-GYVQGEU NAIL, 6 OR MORE 11/14/2018 59692-PSMMAFD NAIL, 6 OR MORE 02/13/2019 60222-ISBBJJW NAIL, 6 OR MORE 05/19/2019 77600-AFBWNIO NAIL, 6 OR MORE 10/16/2019 35392-VVBIIVS NAIL, 6 OR MORE 01/22/2020 03693-DRTWIFV NAIL, 6 OR MORE 04/26/2020 97750-SIWGSIC NAIL, 6 OR MORE 08/02/2020 95723-UETNZJX NAIL, 6 OR MORE 10/28/2020 38719-RSYMSQN NAIL, 6 OR MORE 01/27/2021 31570-LTGQNZJ NAIL, 6 OR MORE 05/09/2021 88181-DHSSBVK NAIL, 6 OR MORE 08/25/2021 64782-UZCLEVO NAIL, 6 OR MORE 03/09/2022 93738-IKGMTGV NAIL, 6 OR MORE 06/22/2022 17356-IQKTMJG NAIL, 6 OR MORE 10/23/2022 30862-GWXVLJB NAIL, 6 OR MORE 11/28/2021 12353-LIWKTWH NAIL, 6 OR MORE 02/22/2023 05112-YWRXBCK NAIL, 6 OR MORE 07/19/2023 96458-DFLTQAW NAIL, 6 OR MORE 10/25/2023 73309-MWYZOFL NAIL, 6 OR MORE 02/14/2024 47337-JYLDGYW NAIL, 6 OR MORE 05/26/2024 57562-REOMEMA NAIL, 6 OR MORE 12/04/2024 24384-Qsztcdrt Plate 05/26/2024 33252-Arsbkbmf Plate 10/25/2023 93838-Ksjmmjxp Plate 07/19/2023 13839-Mglailjl Plate 02/22/2023 86121-Ksbjjrbd Plate 11/28/2021 85273-Slysycwa Plate 08/25/2021 30476-Bqxnlvec Plate 10/28/2020 04591-Swqcbgvg Plate Each Additional 74741 I&D ABSCESS- SIMPLE,SINGLE 022 01038 I&D ABSCESS- SIMPLE,SINGLE 021 09697 I&D ABSCESS- SIMPLE,SINGLE 021 15554-Xuia. Subungual Hematoma 9 Nail Panel 04/30/2017 Next Appt Details Provider Name:Xenia Hernández , 04/13/2025 03:30:00 PM, [address] [place] [address], [address], Insurance Providers Payer Name Payer Address Payer Phone Subscriber Number Group Number Insured Name Patient Relationship to Insured Coverage Start Date Coverage End Date Medicare [facility] [employer] [address] [place] [address] [id number] Richard Chávez Self - patient is the insured 1 [employer] [address] [place] [address] [id number] Richard Chávez Self - patient is the [...]
== END 2025-03-10 16:19 | disposition home or self-care (01) ==
LOC: HO.XRAY 16:18
PROVIDERS: PCP Internal Medicine; Visit Provider Internal Medicine
DX: J18.9 Pneumonia, unspecified organism (principal)
CPT/HCPCS: 71046

== ENCOUNTER → 2025-03-10 16:36 | Outpatient (BNV) | payer MEDICARE, SELFPAY ==
[2024-12-23 15:15] VITALS: BP 122/60; BP 134/60; BMI 24.7
== END ==
PROVIDERS: PCP Internal Medicine; Visit Provider Radiology Diagnostic Radiology
DX: J18.9 Pneumonia, unspecified organism (principal)
CPT/HCPCS: 71046

== ENCOUNTER 2025-03-18 10:29 | Outpatient (REF) | payer MEDICARE, SELFPAY ==
[2024-12-23 15:15] VITALS: BP 122/60; BP 134/60; BMI 24.7
[2025-03-18 12:20] LABS: Hematocrit 42.3 % (42.0-52.0); Hemoglobin 13.7 g/dl (14.0-18.0); Mean Corpuscular HGB Conc 32.4 g/dl (31.0-36.0); Mean Corpuscular Hemoglobin 33.2 pg (27.0-33.0); Mean Corpuscular Volume 102.4 fL (80.0-98.0); NRBC Abs Auto 0.000 X10*3/uL (0.0-0.012); NRBC Pct Auto 0.0 /100WBC (0.0-0.2); Platelet Count 177 X10*3/uL (160-400); Red Blood Count 4.13 X10*6/uL (4.60-5.80); White Blood Count 10.9 X10*3/uL (4.8-10.8)
[2025-03-18 12:51] LABS: Anion Gap 14 (12-20); Blood Urea Nitrogen 36 mg/dL (9-16); Calcium 10.2 mg/dL (8.4-10.2); Carbon Dioxide 29 mmol/L (22-29); Chloride 102 mmol/L (96-108); Estimated Glomerular Filt Rate 51; Potassium 4.1 mmol/L (3.3-5.1); Sodium 141 mmol/L (135-145)
== END 2025-03-18 10:30 | disposition home or self-care (01) ==
LOC: HO.LAB 10:29
PROVIDERS: PCP Internal Medicine; Visit Provider Internal Medicine Cardiovascular Disease
DX: I50.30 Unspecified diastolic (congestive) heart failure (principal); I48.92 Unspecified atrial flutter; Z95.2 Presence of prosthetic heart valve; Z79.01 Long term (current) use of anticoagulants
CPT/HCPCS: 36415; 80048; 83880; 85027; 99212

== ENCOUNTER 2025-03-18 10:29 | Outpatient (AMB) | payer MEDICARE, SELFPAY ==
[2024-12-23 15:15] VITALS: BP 122/60; BP 134/60; BMI 24.7
[2025-03-18 10:32] VITALS: BP 120/74; PULSE 96; BMI 22.8
--- NOTE | 2025-03-18 10:32 | A.OFFVIS_ITS ---
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 Accompanied by: Spouse Allergies No Known Allergies (No Known Allergies*) Allergy (Verified 02/03/25 14:55) Medication List - Last Reconciled 03/18/25 by Home Kendall MD apixaban (Eliquis) 2.5 mg PO BID ascorbic acid (vitamin C) (Vitamin C) 1,000 mg PO DAILY atorvastatin 80 mg PO DAILY blood sugar diagnostic (FreeStyle Lite Strips) As directed carbamide peroxide 6.5% 5 drps otic (ears) TID cefpodoxime 200 mg PO BID cholecalciferol (vitamin D3) (Vitamin D3) 50 mcg PO BEDTIME coenzyme Q10 (CoQ-10) 100 mg PO DAILY dapagliflozin propanediol (Farxiga) 5 mg PO DAILY diltiazem HCl ER (DILT-XR) 180 mg PO DAILY ferrous sulfate (FeroSul) 325 mg PO DAILY furosemide 40 mg PO BID glipizide 5 mg PO DAILY levothyroxine 125 mcg PO DAILY@0600 metformin 1,000 mg PO BID metoprolol succinate ER 25 mg PO BEDTIME omega 9-onh-mfw-fish oil 1,000 (120-180) mg (Fish Oil) 1 cap PO DAILY peg 400-propylene glycol 0.4-0.3 % 1 drp ophthalmic (eye) TID sitagliptin 50 mg PO DAILY tamsulosin 0.4 mg PO BEDTIME HPI Comments Details: Patient comes for follow-up after increase in his diuretic regimen and addition of Farxiga. He says since I last saw him he has been started on oxygen therapy by Pulmonary, [id number] but did not come with his oxygen today as he said the tank is too heavy to carry. He said overall he has been doing better with diuretics. His breathing has improved. His leg edema has improved. He denies any palpitations. No lightheadedness, syncope. No bleeding issues or neurologic events. Remains on a lower dose Eliquis [facility] Medical History Atrial flutter Hypercalcemia TAYLOR (acute kidney injury) Acute hyperglycemia HTN (hypertension) Aortic stenosis Arthritis of right knee Calcific tendinitis of left shoulder Orthostasis (~2014) Diabetes mellitus (~2014) Knee effusion (~11/15/14) Hyperlipidemia (~2012) Hypothyroidism (~2012) Surgical History S/P TAVR (transcatheter aortic valve replacement) S/P wrist surgery History of cardiac cath Family History Father No problems noted. 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 Review of Systems Const Denies chills, Denies fatigue, Denies fever(s), Denies frequent falls, Denies weakness, Denies weight gain and Denies weight loss ENT Denies dizziness Card Denies chest pain, Denies leg edema, Denies lightheadedness, Denies palpitations, Denies dyspnea, Denies dyspnea on exertion, Denies orthopnea and Denies other (loss of consciousness) Resp Denies cough, Denies dyspnea and Denies dyspnea on exertion GI Denies hematochezia and Denies change in stool character Musc Denies abnormal gait, Denies muscle weakness, Denies numbness, Denies radiating pain into limb and Denies tingling Neuro Denies Abnormal speech present, Denies abnormal gait, Denies dizziness, Denies frequent falls, Denies numbness, Denies tingling and Denies weakness Endo Denies fatigue and Denies palpitations Physical Exam Vital Signs: Last Vital Signs Pulse 96 03/18/25 10:32 BP 120/74 03/18/25 10:32 BMI result Body Mass Index 22.8 Const General: cooperative, comfortable, alert, awake, Physically active and in distress moderate and respiratory Nutritional Appearance: thin and other (Frail appearing) Orientation/consciousness: patient oriented x3 Limitations: no limitations Neck Neck: Yes trachea midline, Yes supple and Yes no JVD Carotids: delayed carotid upstroke Chest Chest palpation & inspection: normal inspection of the chest Resp Effort & Inspection: normal respiratory effort Cardio Jugular venous distension: no JVD Rhythm: abnormal rhythm irregularly irregular Heart sounds: S1 normal heart sound present, S2 normal heart sound present, no click, no gallops and Murmur heart sound present systolic early GI Auscultation: normal bowel sounds Skin General skin exam: no rashes or lesions noted Neuro General: patient oriented x3 and no focal motor deficits Speech: No Abnormal speech present Extrem General: No clubbing, No cyanosis and Yes edema (One to 2+) Psych Appearance: grossly normal Assessment & Plan Assessment & Plan (1) Heart failure with preserved ejection fraction: Code(s): I50.30 - Unspecified diastolic (congestive) heart failure Category: Medical Plan: Heart failure preserved ejection fraction much improved by increase diuretics. He has avoided hospitalization related to it. Advised to continue current diuretic regimen as well as Farxiga therapy. Importance of this was discussed additional diuretics as need be. Management of heart failure were discussed. Daily weight monitoring was discussed. Continue oxygen therapy. Overall prognosis is guarded given advanced age as well as underlying structural heart abnormality and frailty. Advise BMP and BNP today. Advised to call me with worsening symptoms. (2) S/P TAVR (transcatheter aortic valve replacement): Code(s): Z95.2 - Presence of prosthetic heart valve Category: Surgical Plan: Status post transcatheter aortic valve replacement with seems to be working well. Continue aggressive risk factor modification. SBE prophylaxis as per ACC/aha guidelines. Continue full oral anticoagulation with Eliquis. (3) Atrial flutter: Code(s): I48.92 - Unspecified atrial flutter Category: Medical Plan: Persistent atrial full term with borderline rate controlled. At this point time will increase metoprolol to 50 mg daily at nighttime. Continue Cardizem therapy. His Eliquis is under dosed. Advised to increase Eliquis to 5 mg b.i.d.. Will check renal function today. Follow up in the clinic in 6 weeks time, sooner PRN. Thank you for allowing me to partake in his care Orders: Orders NT Pro B Type Natriuretic Pept Today I50.30 - Unspecified diastolic (congestive) heart failure Basic Metabolic Panel Today I50.30 - Unspecified diastolic (congestive) heart failure Medications: New apixaban (Eliquis) 5 mg PO BID 180 tabs 2RF I50.30 - Unspecified diastolic (congestive) heart failure metoprolol succinate ER (Toprol XL) 50 mg PO BEDTIME 90 tabs 2RF I50.30 - Unspecified diastolic (congestive) heart failure Refilled furosemide 40 mg PO BID 180 tabs 2RF I50.30 - Unspecified diastolic (congestive) heart failure Discontinued metoprolol succinate ER Discontinued Reason: Doctor's Order 25 mg PO BEDTIME 90 tabs 3RF Coding Level of Care Code Est Pt Level 4 (81600) Complex EM visit Add On G2211 Diagnoses Heart failure with preserved ejection fraction I50.30 S/P TAVR (transcatheter aortic valve replacement) Z95.2 Atrial flutter I48.92
== END 2025-03-18 11:10 | disposition home or self-care (01) ==
LOC: HO.HCS 10:29
PROVIDERS: PCP Internal Medicine; Visit Provider Internal Medicine Cardiovascular Disease
DX: I50.30 Unspecified diastolic (congestive) heart failure (principal); Z95.2 Presence of prosthetic heart valve; I48.92 Unspecified atrial flutter
CPT/HCPCS: 99214; G2211

== ENCOUNTER 2025-03-20 14:49 | Outpatient (AMB) | payer MEDICARE, SELFPAY ==
[2024-12-23 15:15] VITALS: BP 122/60; BP 134/60; BMI 24.7
[2025-03-20 14:52] VITALS: BP 110/60; PULSE 58; O2SAT 94; BMI 22.4
--- NOTE | 2025-03-20 14:52 | A.OFFVIS_ITS ---
Vital Signs 03/20/25 14:52 Height 5 ft 10 in Weight 156 lb 6 oz BMI 22.4 BP 110/60 Blood Pressure Location Lt brachial Position Sitting Pulse 58 Pulse Source Pulse Oximeter Pulse Oximetry (%) 94 Oxygen Delivery Method Room Air Intake Visit Reasons: COPD/ SOB Allergies No Known Allergies (No Known Allergies*) Allergy (Verified 03/20/25 14:55) HPI HPI COPD/ SOB: Details: Richard is a pleasant 89 year old male, former smoker, with underlying h/o acute respiratory failure with hypoxia secondary to pneumonia 12/2024, aortic stenosis s/p TAVR 2021, hypertension, diabetes, hyperlipidemia and hypothyroidism. Patient is a poor historian. Since the last visit he reports consistent use of lasix with improvements in BLE edema and dyspnea. He currently denies any respiratory symptoms, fevers, chills or chest congestion and states I feel great . He had chest CT 03/04/25 which revealed improvements from prior pneumonia as well as interval development of suspected multifocal pneumonia that has changed since the prior examination. There is increased involvement of the right upper lobe and improvement in the masslike consolidation in the posterior left upper lobe. He was called with results the following day and prescribed Vantin. When asked patient can not confirm that he has taken medication. Of note, 6MWT performed at the last visit requiring 2L of supplemental oxyen with exertion and did not present with it today. He states the smaller tank runs out too quickly and larger tanks are took heavy to manage. He does not have a trolley. He does endorse using 2L with exertion as well as NOC, with concentrator at home. [facility] Medical History Atrial flutter Hypercalcemia TAYLOR (acute kidney injury) Acute hyperglycemia HTN (hypertension) Aortic stenosis Arthritis of right knee Calcific tendinitis of left shoulder Orthostasis (~2014) Diabetes mellitus (~2014) Knee effusion (~11/15/14) Hyperlipidemia (~2012) Hypothyroidism (~2012) Surgical History S/P TAVR (transcatheter aortic valve replacement) S/P wrist surgery History of cardiac cath Family History Father No problems noted. 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 Review of Systems Const Denies chills, Denies excessive sweating, Denies fever(s), Denies headache(s) and Denies night sweats Eyes Denies dry eyes, Denies irritation and Denies itchy eyes ENT Reports Normal hearing present, Denies headache(s), Denies nasal congestion, Denies nasal discharge, Denies post nasal drip and Denies sore throat Card Denies chest pain, Denies chest pain at rest, Denies chest pain with activity, Denies claudication, Denies orthopnea and Denies paroxysmal nocturnal dyspnea Resp Denies chest congestion, Denies excessive phlegm production, Denies pain on inspiration, Denies pain with cough, Denies stridor and Denies wheezing Musc Denies myalgias Neuro Reports Normal hearing present and Denies headache(s) Endo Denies excessive sweating Himanshu/Lymph Denies lymphadenopathy Aller/Immun Denies itchy eyes, Denies seasonal rhinorrhea and Denies wheezing Physical Exam Vital Signs: Last Vital Signs Pulse 58 03/20/25 14:52 BP 110/60 03/20/25 14:52 Pulse Ox 94 03/20/25 14:52 Oxygen Delivery Method Room Air 03/20/25 14:52 BMI result Body Mass Index 22.4 Const General: cooperative, comfortable, no acute distress and alert Orientation/consciousness: patient oriented x3 Limitations: no limitations HEENT Head: Yes normal to inspection, Yes normocephalic and Yes atraumatic Ears: hearing grossly normal bilaterally and external ears normal Eyes General: appearance normal, both eyes and all related structures Eyelids: Yes eyelids normal Sclerae: sclerae normal EOM: EOMs intact bilaterally Neck Neck: Yes normal visual inspection and Yes no lymphadenopathy Lymphatic: no lymphadenopathy noted Chest Chest palpation & inspection: normal inspection of the chest Resp Other: Inspiratory bibasilar coarse crackles Effort & Inspection: normal respiratory effort, able to speak in complete sentences, no audible wheezes, no cough, no stridor, not tachypneic, no tripod positioning and no use of accessory muscles Auscultation: clear to auscultation bilaterally Cardio Jugular venous distension: no JVD Rate: regular rate Rhythm: regular rhythm Skin Other: warm, dry General skin exam: no rashes or lesions noted Neuro General: patient oriented x3 Cranial nerves: Yes Normal hearing present Cognition (Neuro): normal cognition Gait exam (Neuro): Normal gait present Extrem Other: trace pedal edema Psych Appearance: grossly normal and well kempt Speech and movement: Normal speech and movement present and Clear speech present Affect: normal affect Attitude: cooperative Thought process: Normal thought process present Thought content: Normal thought content present Insight: Good insight present (Psych) Judgement: Good judgement present (Psych) Results Reviewed Results Reviewed: [address] [address] [address] Scan Report Signed Patient: Richard Chávez MR#: [id number] : 1935 Acct:[id number] Age/Sex: 89 / M ADM Date: 03/04/25 Loc: HO.CT Attending Dr: Kerline Ceja NP Ordering Physician: Kerline Ceja NP Date of Service: 03/04/25 Procedure(s): CT chest wo IV con Accession Number(s): [id number] cc: Orestes Alex MD; Kerline Ceja NP~ Report Number: [id number]: Total DLP = 123.00 mGy-cm Reason for Exam: Z87. - Personal history of pneumonia (recurrent) EXAMINATION: CT CHEST WITHOUT CONTRAST CLINICAL INFORMATION: Z87. - Personal history of pneumonia (recurrent) COMPARISON: December 24, 2024 CT and x-ray 02/17/2025 TECHNIQUE: Multidetector volumetric CT imaging of the chest was done. Axial MIP volume rendering provided. Sagittal and coronal reformatted images were obtained. This CT examination was performed using dose optimization techniques as appropriate, variously including the following: *Automated exposure control *Adjustment of mA and/or kV according to patient size (this includes techniques or standardized protocols for targeted exams where dose is matched to indication/reason for exam; i.e. extremities or head) *Use of iterative reconstruction technique FINDINGS: LUNGS: Again noted are moderate changes of paraseptal and centrilobular emphysema. There is honeycombing in the medial right lower lobe. There is mild symmetrical bronchiectasis most pronounced in the perihilar regions and lower lobes. There is also peribronchial thickening. Masslike density with air bronchograms in the posterior left upper lobe as significantly decreased in size but has not fully resolved. There is a new spiculated nodular density in the anterior-inferior right upper lobe 2.3 cm long axis. There is new groundglass density with reticulation in the lower portion of the right upper lobe. There is new consolidation in the peribronchial lung of the perihilar right middle lobe. There is improved aeration of the left lower lobe with persistent areas of consolidation along the posterior lung as well as intralobular septal thickening and reticular densities. MEDIASTINUM: The trachea and mainstem bronchi are moderately enlarged. Borderline mediastinal lymph nodes are again noted. CORONARY ARTERY CALCIFICATION: Present PLEURA: There is no pleural effusion. No pleural mass or thickening. AXILLA: No lymphadenopathy. UPPER ABDOMEN: There is trace ascites which is new since the prior. The liver size is prominent with an enlarged left lateral hepatic segment relative to the right lobe suggesting underlying cirrhosis. Innumerable pseudodiverticula are visible in the hepatic flexure of the colon. OSSEOUS STRUCTURES: Moderate degenerative changes are present in the spine with bridging anterior osteophytes. CT/CT chest wo IV con IMPRESSION: Suspected multifocal pneumonia that has changed since the prior examination. There is increased involvement of the right upper lobe and improvement in the masslike consolidation in the posterior left upper lobe. There is also borderline mediastinal adenopathy and, again, underlying neoplasm is not ruled out. Moderate centrilobular and paraseptal emphysema. There is enlargement of the trachea and mainstem bronchi extending underlying obstructive component. Liver morphology suggests cirrhosis. There is trace ascites. Diverticulosis. 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 Fleischner guidelines were followed. 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 He can not confirm that he took this medication although is asymptomatic at this time. Discussed with patient that we will call on Sunday when back in office so we can ensure that he completed course of abx. Will also reach out to pharmacy to ensure patient picked up prescription. If unable to confirm will send for CXR and is he aware if symptoms change to seek emergent care. If patient completed, then will reassess for improvements on chest CT in 8 weeks. We did discuss there are some changes on chest CT which may be related to pneumonia however underlying malignancy can not be ruled out. All questions were answered and patient is in agreement of plan. Will follow-up in 8-10 weeks or sooner if needed. Coding Level of Care Code Est Pt Level 4 (53661) Complex EM visit Add On G2211 Diagnoses Restrictive ventilatory defect R94.2 SOB (shortness of breath) R06.02 History of recent pneumonia Z87.01
== END 2025-03-20 15:17 | disposition home or self-care (01) ==
LOC: HO.HPSW 14:49
PROVIDERS: PCP Internal Medicine; Visit Provider Nurse Practitioner Family
DX: R94.2 Abnormal results of pulmonary function studies (principal); R06.02 Shortness of breath; Z87.01 Personal history of pneumonia (recurrent)
CPT/HCPCS: 99214; G2211

== ENCOUNTER → 2025-03-20 14:49 | Outpatient (BNVA) | payer MEDICARE, SELFPAY ==
[2024-12-23 15:15] VITALS: BP 122/60; BP 134/60; BMI 24.7
== END ==
PROVIDERS: PCP Internal Medicine; Visit Provider Nurse Practitioner Family
DX: R06.02 Shortness of breath (principal); R94.2 Abnormal results of pulmonary function studies; Z87.01 Personal history of pneumonia (recurrent); Z87.891 Personal history of nicotine dependence
CPT/HCPCS: 99212

== ENCOUNTER 2025-03-24 14:42 | Outpatient (REF) | payer MEDICARE, SELFPAY ==
[2024-12-23 15:15] VITALS: BP 122/60; BP 134/60; BMI 24.7
--- NOTE | ~2025-03-24 | XR_ITS ---
EXAMINATION: XR CHEST 2 VIEWS HISTORY: Z87.01 - Personal history of pneumonia (recurrent) COMPARISON: Comparison is made with the prior examination dated 03/10/2025. FINDINGS: PA and lateral views of the chest are submitted. Again seen is extensive scarring and increased interstitial markings. Patchy opacity in the right middle and lower lung zones is again noted and may represent pneumonia. There is no pleural effusion, pneumothorax, or pulmonary vascular congestion. The heart is normal in size. 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 XR/XR chest 2V IMPRESSION: Extensive scarring and increased interstitial markings. Probable right middle/lower lobe pneumonia. Continued follow-up is recommended to document resolution. Electronically signed by: Mario Moore MD 03/24/2025 03:14 PM EDT
== END 2025-03-24 14:43 | disposition home or self-care (01) ==
LOC: HO.XRAY 14:42
PROVIDERS: PCP Internal Medicine; Visit Provider Nurse Practitioner Family
DX: Z87.01 Personal history of pneumonia (recurrent) (principal)
CPT/HCPCS: 71046

== ENCOUNTER → 2025-03-24 14:50 | Outpatient (BNV) | payer MEDICARE, SELFPAY ==
[2024-12-23 15:15] VITALS: BP 122/60; BP 134/60; BMI 24.7
== END ==
PROVIDERS: PCP Internal Medicine; Visit Provider Radiology Diagnostic Radiology
DX: J84.9 Interstitial pulmonary disease, unspecified (principal)
CPT/HCPCS: 71046

== ENCOUNTER 2025-04-29 20:54 | Inpatient (IN) | payer MEDICARE, SELFPAY ==
--- OUTSIDE RECORDS SUMMARY | 2010-08-11 06:08 | XMS_ITS | Continuity of Care Document ---
Author Organization [facility] Address [address] [place] [address] Phone Care Team Providers Care Cardiac Exercise Specialist Name Role Phone BEVERLY DAVILA [facility], [place] Unavailable Unavailable Procedures Procedure Date STRESS ECHO W/PHY SUP/REPT DOPPLER ECHO EXAM, HEART DOPPLER COLOR FLOW ADD-ON Advance Directives Directive Yes / No Effective Date File Name No Information Encounters Encounter Description Practice Location Reason(s) For Visit Diagnoses Date Provider Providers Copied on Encounter [facility], [address], [place], [address], [place] tel:[phone] [facility] Office No Information BEVERLY DAVILA [facility] [place]. [address], [facility], [place], [place], [id number], [place]. tel:[phone] [facility], [address], [place], [address], [place] tel:[phone] [facility] Office Shortness of Breath BEVERLY DAVILA [facility] [place]. [address], [facility], [place], [place], [address], [place]. tel:[phone] Referring Provider: Cherie Badillo NP [facility], [address] [facility] [place], [address]. tel:[phone] Family History Family Member Type Diagnosis Age At Onset No Information Payers Payer name Insurance type Covered democrat ID Authorgricel lora(s) Medicare Part B [id number] [facility] Out Of Area [id number] Social History Type Description Quantity Date Captured Comments Sex Male Smoking Status No Information Chief Complaint And Reason For Visit No Information Reason For Referral Reason For Referral No Information History Of Present Illness Encounter Date Complaint History Of Prese nt Illness No Information Functional Status Date Functional Assessmen t No Information Instructions Date Instruction Additional Infor mation No Information Assessments Type Assessment Date No Information Patient Care Teams Name Effective Dates (start - stop) Status Members No Information
--- OUTSIDE RECORDS SUMMARY | 2010-08-11 06:08 | XMS_ITS | Continuity of Care Document ---
Author Organization [facility] Address [address] [place] [address] Phone Care Team Providers Care Laminating Machine Offbearer Name Role Phone BEVERLY DAVILA [facility], [place] Unavailable Unavailable Procedures Procedure Date STRESS ECHO W/PHY SUP/REPT DOPPLER ECHO EXAM, HEART DOPPLER COLOR FLOW ADD-ON Advance Directives Directive Yes / No Effective Date File Name No Information Encounters Encounter Description Practice Location Reason(s) For Visit Diagnoses Date Provider Providers Copied on Encounter [facility], [address], [place], [address], [place] tel:[phone] [facility] Office No Information BEVERLY DAVILA [facility] [place]. [address], [facility], [place], [place], [id number], [place]. tel:[phone] [facility], [address], [place], [address], [place] tel:[phone] [facility] Office Shortness of Breath BEVERLY DAVILA [facility] [place]. [address], [facility], [place], [place], [id number], [place]. tel:[phone] Referring Provider: Cherie Badillo NP [facility], [address] [facility] [place], [address]. tel:[phone] Family History Family Member Type Diagnosis Age At Onset No Information Payers Payer name Insurance type Covered green party ID Authorgricel lora(s) Medicare Part B [id number] [facility] Out Of Area [id number] Social History Type Description Quantity Date Captured [...]
--- OUTSIDE RECORDS SUMMARY | 2010-08-11 06:08 | XMS_ITS | Continuity of Care Document ---
Author Organization [facility] Address [address] [place] [address] Phone Care Team Providers Care Refrigerating Technician Name Role Phone BEVERLY DAVILA [facility] [place] Unavailable Unavailable Procedures Procedure Date STRESS ECHO W/PHY SUP/REPT DOPPLER ECHO EXAM, HEART DOPPLER COLOR FLOW ADD-ON Advance Directives Directive Yes / No Effective Date File Name No Information Encounters Encounter Description Practice Location Reason(s) For Visit Diagnoses Date Provider Providers Copied on Encounter [facility], [address], [place], [address], [place] tel:[phone] [facility] Office No Information BEVERLY DAVILA [facility] [place]. [address], [facility], [place], [place], [id number], [place]. tel:[phone] [facility], [address], [place], [address], [place] tel:[phone] [facility] Office Shortness of Breath BEVERLY DAVILA [facility] [place]. [address], [facility], [place], [place], [address], [place]. tel:[phone] Referring Provider: Cherie Badillo NP [facility], [address] [facility] [place], [address]. tel:[phone] Family History Family Member Type Diagnosis Age At Onset No Information Payers Payer name Insurance type Covered alliance party ID Authorgricel lora(s) Medicare Part B [id number] [facility] Out Of Area [id number] Social History Type Description Quantity Date Captured [...]
--- OUTSIDE RECORDS SUMMARY | 2010-08-11 06:08 | XMS_ITS | Continuity of Care Document ---
Author Organization [facility] Address [address] [place] [address] Phone Care Team Providers Care Higher Education Administrator Name Role Phone BEVERLY DAVILA [facility] [place] Unavailable Unavailable Procedures Procedure Date STRESS ECHO W/PHY SUP/REPT DOPPLER ECHO EXAM, HEART DOPPLER COLOR FLOW ADD-ON Advance Directives Directive Yes / No Effective Date File Name No Information Encounters Encounter Description Practice Location Reason(s) For Visit Diagnoses Date Provider Providers Copied on Encounter [facility], [address], [place], [address], [place] tel:[phone] [facility] Office No Information BEVERLY DAVILA [facility] [place]. [address], [facility], [place], [place], [address], [place]. tel:[phone] [facility], [address], [place], [address], [place] tel:[phone] [facility] Office Shortness of Breath BEVERLY DAVILA [facility] [place]. [address], [facility], [place], [place], [address], [place]. tel:[phone] Referring Provider: Cherie Badillo NP [facility], [address] [facility] [place], [address]. tel:[phone] Family History Family Member Type Diagnosis Age At Onset No Information Payers Payer name Insurance type Covered constitution party ID Authorgricel lora(s) Medicare Part B [id number] [facility] Out Of Area [id number] Social History Type Description Quantity Date Captured [...]
--- OUTSIDE RECORDS SUMMARY | 2024-09-01 08:00 | XMS_ITS ---
Author Organization [facility] Address [address] [place] [address] Care Team Providers Care Oncology Research Rn Name Role Phone Isai DAVILA, Orestes Primary Care Provider Xenia Rojas [phone] Mark Encounters Encounter Location Date Provider Diagnosis [facility] [address] [place] [address] 09/01/2024 Xenia Hernández Plan Of Treatment No Information Progress Notes * Richard CAT WDOB:1935 (89 yo M)Acc No.[id number]:09/01/2024 Progress Note Patient: Richard HERRERA Provider: Sherita Hernández DPM :1935 A ge:89 Y S ex:Male Date:09/01/2024 Address:[address] [facility] [id number] Pcp:Orestes Alex MD Subjective: * Chief Complaints: * [address] * Medical History: Objective: * Vitals: Assessment: Plan: * Treatment: * Images: * The named appointment provid er may or may not be the originator of this progress note, and it is not deemed complete until electronically signed by the appointment provider. Sign off status: Pending * Provider: Sherita Hernández DPM Date: 0 09/01/2024 Generated for Printi ng/Faxing/eTransmitting on: 1 06/30/2024 05:23 AM EST
[2024-12-23 15:15] VITALS: BP 122/60; BP 134/60; BMI 24.7
--- OUTSIDE RECORDS SUMMARY | 2024-12-31 04:15 | XMS_ITS ---
Author Organization Orestes Alex MD Address [address] [place] [phone] Care Team Providers Care Software Applications Architect Name Role Phone Orestes Alex Primary Care Provider REASON FOR VISIT discharge Encounters Encounter Location Date Provider Diagnosis Orestes Alex MD [address] [facility] [address] [place] [phone] 12/31/2024 Orestes Alex Plan Of Treatment Next Appt Details Provider Name:Orestes javier, 05/28/2025 01:45:00 PM, [address] [place] [address], Suite [facility], [place], [place], [phone], Provider Name:Orestes javier, 06/26/2025 07:15:00 AM, [address] [place] [address], [address] [place] [address], [phone], Provider Name:Orestes javier, 07/03/2025 01:30:00 PM, [address], [address], [place], [phone], Progress Notes * Delia CAT WDOB:1935 (89 yo M)Acc No.[id number]:12/31/2024 Patient: Delia HERRERA :1935 A ge:89 Y S ex:Male Address:[address] [place] [address], [place] [address] * true * Date: Generated for Morelia martell/Bernardino/eTransmitting on: 06/30/2024 05:24 AM EST
--- OUTSIDE RECORDS SUMMARY | 2025-01-09 03:45 | XMS_ITS ---
Author Organization Orestes Alex MD Address [address] [place], [place] [phone] Care Team Providers Care Braille Proofreader Name Role Phone Orestes Alex Primary Care Provider [phone] Results Component Value Reference Range Notes Liver Panel Reviewed date:02/13/2025 11:34:17 AM Interpretation:02-13-2025 Performing Lab:[facility], [address] [place] [phone] Notes/Report: Bilirubin Total 0.7 0.0-1.0 mg/dL Bilirubin Direct 0.4 0.0-0.5 mg/dL Aspartate Amino Transferase 87 5-37 U/L Alanine Aminotransferase 78 0-40 U/L Total Protein 6.6 6.5-8.0 g/dL Albumin Level 3.4 3.5-5.0 g/dL Alkaline Phosphatase 154 39-117 U/L REASON FOR VISIT 1 month repeat LFT's Encounters Encounter Location Date Provider Diagnosis Orestes Alex MD [address] [place], [place] [phone] 01/09/2025 Orestes Alex Elevated LFTs R79.89 Assessments Encounter Date Diagnosis (ICD Code) Assessment Notes Treatment Notes Treatment Clinical Notes Section Notes 01/09/2025 Elevated LFTs (ICD-10 - R79.89) Plan Of Treatment Next Appt Details Provider Name:Orestes Linda ier, 05/28/2025 01:45:00 PM, [address], [address], [place], [phone], Provider Name:Orestes Linda ier, 06/26/2025 07:15:00 AM, [address] [place] [address], [address], [place], [phone], Provider Name:Orestes Venancio Maddi silvar, 07/03/2025 01:30:00 PM, [address] [place] [address], Suite [facility], [place], [place], [phone], Progress Notes * Delia CAT WDOB:1935 (89 yo M)Acc No.[id number]:01/09/2025 Progress Note Patient: Delia HERRERA Provider: Nicolette Alex MD :1935 A ge:89 Y S ex:Male Date:01/09/2025 Address:[address] [place] [address], [facility] [place], [id number] Subjective: * Chief Complaints: * 1 . 1 month repeat LFT's. * Medical History: Objective: * Vitals: Assessment: * Assessment: 1. E levated LFTs - R79.89 (Primary) Plan: * Treatment: * Procedure Codes: 3 6415 VENIPUNCT, ROUTINE* * * The named appointment provid er may or may not be the originator of this progress note, and it is not deemed complete until electronically signed by the appointment provider. Sign off status: Pending * Provider: Nicolette Alex MD Date: 0 01/09/2025 Generated for Morelia martell/Bernardino/eTransmitting on: 06/30/2024 05:24 AM EST
--- OUTSIDE RECORDS SUMMARY | 2025-01-09 06:45 | XMS_ITS ---
Author Organization Orestes Alex MD Address [address] [place], [place] [phone] Care Team Providers Care Ore Mixer Name Role Phone Orestes Alex Primary Care Provider [phone] Allergies No Known Allergies Results Component Value [...] Status Risk Notes Problem Congestive heart failure (31463848) CHF (congestive heart failure) (I50.9) Active confirmed Vital Signs Blood pressure systolic 122 mm Hg 01/10/20 25 Blood pressure diastolic 64 mm Hg 025 Height 67 in 01/09/2025 Weight 159 lbs 01/09/2025 BMI 24.9 kg/m2 01/09/2025 weight is up 5 pounds since Encounters Encounter Location Date Provider Diagnosis Orestes Alex MD [address] [place] [address] Drive [address] [place], [place] [phone] 01/09/2025 Orestes Alex Type 2 diabetes mellitus [...] Follow Up: 10 days, Reason: Provider Name:Orestes Linda ier, 05/28/2025 01:45:00 PM, [address] [place] [address], Suite [facility], [place], [place], [phone], Provider Name:Orestes Linda ier, 06/26/2025 07:15:00 AM, [address] [place] [address], Suite [facility], [place], [place], [phone], Provider Name:Orestes Craft Maddi silvar, 07/03/2025 01:30:00 PM, [address] [place] [address], Suite [facility], [place], [place], [phone], Progress Notes * Delia CAT WDOB:1935 (89 yo M)Acc No.[id number]:01/09/2025 Patient: Delia HERRERA Provider: Nicolette Alex MD :1935 A ge:89 Y S ex:Male Date:01/09/2025 Address:[address] [place] [address], [facility] [id number] Subjective: * Chief Complaints: * P H/TCM [...] BP:122/64, Wt-k.12. weight is up 5 pounds [id number]. * Examination: G eneral Examination: GENERAL APPEARANCE: [...] 01/09/2025 Generated for Morelia martell/Bernardino/Zhangsmitting on: 1 06/30/2024 05:25 AM EST History and Physical Notes * [...]
--- OUTSIDE RECORDS SUMMARY | 2025-01-20 08:45 | XMS_ITS ---
Author Organization Orestes Alex MD Address [address] [place], [place] [phone] Care Team Providers Care Neonatal Icu Coordinator Name Role Phone Orestes Alex Primary Care Provider Allergies No Known Allergies Results Component Value Reference Range Notes Glucose, finger stick Reviewed date:01/20/2025 01:54:11 PM Interpretation: Performing Lab: Notes/Report: Value 120 REASON FOR VISIT 10 DAY F/U Medications Medication SIG (Take, Route, Frequency, Duration) Notes Start Date End Date Status FreeStyle Lancets - USE TO TEST BLOOD SAINZ GAR FOUR TIMES DAILY for 90 Active Tamsulosin HCl 0.4 MG TAKE 1 CAPSULE ONC E DAILY DIRECTED Active Furosemide 40 MG TAKE 1 TABLET BY ETELVINA TH EVERY DAY Active FreeStyle Lite Test - USE TO TEST BLOOD SUGAR FOUR TIMES DAILY for 100 Active Accu-Chek Suzanne Plus 0 DIRECTED DAILY IN VITRO 90 Active Amoxicillin 500 MG TAKE 4 CAPSULES BY M OUTH 1 HOUR BEFORE DENTAL APPOINTMENT FOR 1 DAY Active SITagliptin 50 MG 1tablets Orally Once a day Active glipiZIDE 5 MG TAKE 1 TABLET ONCE D AILY 30MINUTES BEFORE BREAKFAST Active Dilt-XR 180 MG TAKE 1 CAPSULE BY MO UTH EVERY DAY for 30 Active Atorvastatin Calcium 80 MG TAKE 1 TABLET ONCE DAILY Active Metoprolol Succinate ER 25 MG 1 tablet Orally Once a day Active FeroSul 325 (65 Fe) MG TAKE 1 TABLET BY MOUTH EVERY DAY Orally for 90 days Active Levothyroxine Sodium 125 MCG TAKE 1 TABLET EVERY MORNINGON AN EMPTY STOMACH Active Eliquis 5 MG TAKE 1 TABLET TWICE A DAY Active metFORMIN HCl 500 MG 1 tablet Orally twi ce a day Active Vital Signs Blood pressure systolic 112 mm Hg 01/21/20 25 Blood pressure diastolic 60 mm Hg 025 Height 67 in 01/20/2025 Weight 160 lbs 01/20/2025 BMI 25.06 kg/m2 01/20/2025 Encounters Encounter Location Date Provider Diagnosis Orestes Alex MD [address] [place] [address] [place] [phone] 01/20/2025 Orestes Alex Type 2 diabetes mellitus without complication E11.9 and Pneumonia J18.9 Assessments Encounter Date Diagnosis (ICD Code) Assessment Notes Treatment Notes Treatment Clinical Notes Section Notes 01/20/2025 Type 2 diabetes mellitus without complication (ICD-10 - E11.9) doing well on meds, will continue current regiment 01/20/2025 Pneumonia (ICD-10 - J18.9) doing well with no chf on the cxr but the pneumonias not completely gone/ order given to patient Plan Of Treatment Medication Medication Name Sig Start Date Stop Date Notes Amoxicillin 500 MG TAKE 4 CAPSULES BY M OUTH 1 HOUR BEFORE DENTAL APPOINTMENT FOR 1 DAY SITagliptin 50 MG 1tablets Orally Once a day glipiZIDE 5 MG TAKE 1 TABLET ONCE D AILY 30MINUTES BEFORE BREAKFAST metFORMIN HCl 500 MG 1 tablet Orally twice a day Treatment Notes Assessment Notes Type 2 diabetes mellitus wit hout complication doing well on meds, will continue curren t regiment Pneumonia doing well with no c hf on the cxr but the pneumonias not completely gone/ order given to patient Future Test Test Name Order Date XR CHEST 2 VIEW PA & LAT 02/17/2025 Next Appt Details Provider Name:Orestes Linda ier, 05/28/2025 01:45:00 PM, [address] [facility] [address] [facility] [address], [address], [place], [phone], Provider Name:Orestes Linda ier, 06/26/2025 07:15:00 AM, [address] [facility] [address], [address], [place], [phone], Provider Name:Orestes Linda ier, 07/03/2025 01:30:00 PM, [address] [facility] [address], [address], [place], [place], [phone], Progress Notes * Delia CAT WDOB:1935 (89 yo M)Acc No.[id number]:01/20/2025 Progress Notes Patient: Delia HERRERA Provider: Nicolette Alex MD :1935 A ge:89 Y S ex:Male Date:01/20/2025 Address:[address] [place] [address], [facility], [id number] Subjective: * Chief Complaints: * 1 0 DAY F/U * HPI: S ymptom(s): patient is a 89 yo male here for 10 day follow up visit. * ROS: G eneral/Constitutional: Denies C hills. D enies F atigue. D enies F ever. D enies H eadache. E NT: Denies S ore throat. R espiratory: Denies C ough. D enies S hortness of breath at rest. D enies S hortness of breath with exertion. G astrointestinal: Denies D iarrhea. D enies [...] HOUR BEFORE DENTAL APPOINTMENT FOR 1 DAY FeroSul 325 (65 Fe) MG Tablet TAKE [...] TAKE 1 CAPSULE BY MOUTH EVERY DAY metFORMIN HCl 500 MG Tablet 1 tablet Orally twice a day glipiZIDE 5 MG Tablet TAKE 1 TABLET ONCE DAILY 30MINUTES BEFORE BREAKFAST SITagliptin 50 MG Tablet 1tablets Orally Once a day Furosemide 40 MG Tablet TAKE 1 TABLET BY MOUTH EVERY DAY Medication List reviewed [...] BEFORE DENTAL APPOINTMENT FOR 1 DAY Taking FeroSul 325 (65 Fe) MG Tablet [...] 1 CAPSULE BY MOUTH EVERY DAY Taking metFORMIN HCl 500 MG Tablet 1 tablet Orally twice a day Taking glipiZIDE 5 MG Tablet TAKE 1 TABLET ONCE DAILY 30MINUTES BEFORE BREAKFAST Taking SITagliptin 50 MG Tablet 1tablets Orally Once a day Taking Furosemide 40 MG Tablet TAKE 1 TABLET BY MOUTH EVERY DAY Medication List reviewed and reconciled with the patient * Allergies: N .K.D.A.yes[Allergies Verified] Objective: * Vitals: H t: 67, Wt: 160, BMI:25.06, BP:112/60, Wt-k.58. * Examination: G eneral Examination: GENERAL APPEARANCE: a lert, well hydrated, in no distress.? HEAD: n ormocephalic. SKIN: g ood turgor. HEART: n o murmurs, rubs, gallops, regular rate and rhythm.? LUNGS: g ood air movement, clear to auscultation bilaterally. EXTREMITIES: 2 + pitting edema lower extremities. ? Assessment: * Assessment: 1. T ype 2 diabetes mellitus without complication - E11.9 (Primary) 2 . P neumonia - J18.9 Plan: * Treatment: Value Reference Range V alue 120 Notes: doing well on meds, will continue current regiment??2.?Pneumonia? Continue Amoxicillin Capsule, 500 MG, TAKE 4 CAPSULES BY MOUTH 1 HOUR BEFORE DENTAL APPOINTMENT FOR1 DAY.?Imaging: XR CHEST 2 VIEW PA & LAT (Ordered for 02/17/2025) Notes: doing well with no chf on the cxr but the pneumonias not completely gone/ order given to patient?? * Procedure Codes: 8 2947 ASSAY, GLUCOSE, BLOOD QUANT, Modifiers: QW * * Sign off status: Completed true * Provider: Nicolette Alex MD Date: 0 01/20/2025 Generated for Morelia martell/Bernardino/eTmikysmitting on: 1 06/30/2024 05:24 AM EST History and Physical Notes * HPI (History of Present Illness) Category Sub-Category Detail Notes Category Not es Symptom(s) patient is a 89 yo male here for 10 day follow up visit Examination Category Sub-Category Detail Notes Category Not es General Examination GENERAL APPEARANCE: alert, w ell hydrated, in no distress HEAD: normocephalic HEART: no murmurs, rubs, ga llops, regular rate and rhythm LUNGS: good air movement, c lear to auscultation bilaterally SKIN: good turgor EXTREMITIES: 2+ pitting edema low er extremities
--- OUTSIDE RECORDS SUMMARY | 2025-02-02 08:35 | XMS_ITS ---
Author Organization Orestes Alex MD Address [address] [place] [phone] Care Team Providers Care Broke Beater Name Role Phone Orestes Alex Primary Care Provider REASON FOR VISIT bilateral ankle edema x 1 day Encounters Encounter Location Date Provider Diagnosis Orestes Alex MD [address] [place] [address] [place] [phone] 02/02/2025 Orestes Alex Plan Of Treatment Next Appt Details Provider Name:Orestes javier, 05/28/2025 01:45:00 PM, [address] [place] [address], Suite [facility], [place], [place], [phone], Provider Name:Orestes javier, 06/26/2025 07:15:00 AM, [address] [place] [address], Suite [facility], [place], [place], [phone], Provider Name:Orestes javier, 07/03/2025 01:30:00 PM, [address], [address], [place], [place], [phone], Progress Notes * Delia CAT WDOB:1935 (89 yo M)Acc No.[id number]:02/02/2025 Patient: Delia HERRERA :1935 A ge:89 Y S ex:Male Address:[address] [place] [address], [place] [address] * true * Date: Generated for Morelia martell/Bernardino/eTransmitting on: 06/30/2024 05:25 AM EST
--- OUTSIDE RECORDS SUMMARY | 2025-02-13 04:00 | XMS_ITS ---
Author Organization Orestes Alex MD Address [address] [place], [place] [phone] Care Team Providers Care Ram Car Operator Name Role Phone Orestes Alex Primary Care Provider [phone] Results Component Value Reference Range Notes Liver Panel Reviewed date:02/13/2025 12:45:26 PM Interpretation: Performing Lab:[facility], [address] [place] [phone] Notes/Report: Bilirubin Total 0.9 0.0-1.0 mg/dL Bilirubin [...] Location Date Provider Diagnosis Orestes Alex MD [address] [place] [address] Drive [address] [place] [phone] 02/13/2025 Orestes Alex Elevated liver enzym es R74.8 and Encounter for administration of vaccine Z23 Assessments Encounter Date Diagnosis (ICD Code) Assessment Notes Treatment Notes Treatment Clinical Notes Section Notes 02/13/2025 Elevated liver enzymes (ICD-10 - R74.8) 02/13/2025 Encounter for administration of vaccine (ICD-10 - Z23) Plan Of Treatment Next Appt Details Provider Name:Orestes javier, 05/28/2025 01:45:00 PM, [address] [place] [address], [address] [facility], [place], [place], [phone], Provider Name:Orestes javier, 06/26/2025 07:15:00 AM, [address] [place] [address], [address] [facility], [place], [place], [phone], Provider Name:Orestes javier, 07/03/2025 01:30:00 PM, [address] [place] [address], [address] [facility], [place], [place], [phone], Progress Notes * Delia CAT WDOB:1935 (89 yo M)Acc No.[id number]:02/13/2025 Progress Note Patient: Delia HERRERA Provider: Nicolette Alex MD :1935 A ge:89 Y S ex:Male Date:02/13/2025 Address:[address] [place] [address], [facility], [id number] Subjective: * Chief Complaints: * 1 . [...] * Procedure Codes: 3 6415 VENIPUNCT, ROUTINE*, 62120 FLU VACC PRSV FREE INC ANTIG, G0008 ADMN FLU VAC NO FEE SCHED SAME DAY * * The named appointment provid er may or may not be the originator of this progress note, and it is not deemed complete until electronically signed by the appointment provider. Sign off status: Pending * Provider: Nicolette Alex MD Date: 0 02/13/2025 Generated for Morelia martell/Bernardino/Delia on: 1 06/30/2024 05:23 AM EST
--- OUTSIDE RECORDS SUMMARY | 2025-02-17 08:00 | XMS_ITS ---
Author Organization Orestes Alex MD Address [address] [place] [phone] Care Team Providers Care Cane Loader Name Role Phone Orestes Alex Primary Care Provider [phone] REASON FOR VISIT Repeat CXR Encounters Encounter Location Date Provider Diagnosis Orestes Alex MD [address] [place] [id number] 02/17/2025 Orestes Alex Pneumonia J18.9 Assessments Encounter Date Diagnosis (ICD Code) Assessment Notes Treatment Notes Treatment Clinical Notes Section Notes 02/17/2025 Pneumonia (ICD-10 - J18.9) Order mailed to the patient to be done week of 03-09-25. Plan Of Treatment Treatment Notes Assessment Notes Pneumonia Order mailed to the patient to be done week of 03-09-25. Pending Test Test Name Order Date XR chest 2V 02/17/2025 Next Appt Details Provider Name:Orestes Linda ier, 05/28/2025 01:45:00 PM, [address], [address], [place], [phone], Provider Name:Orestes Linda yaya, 06/26/2025 07:15:00 AM, [address], [address], [place], [phone], Provider Name:Orestes Linda ricardor, 07/03/2025 01:30:00 PM, [address], [address], [place], [phone], Progress Notes * Delia CAT WDOB:1935 (89 yo M)Acc No.[id number]:02/17/2025 Patient: Delia HERRERA :1935 A ge:89 Y S ex:Male Address:[address] [place] [address] [place] [address] Subjective: * Chief Complaints: * R epeat CXR * Medical History: * Surgical History: * Hospitalization/Major Diagno stic Procedure: * Medications: Objective: * Vitals: * Physical Examination: Assessment: * Assessment: 1. P stasia - J18.9 Plan: * Treatment: * Procedure Codes: * true * Date: Generated for Morelia martell/Bernardino/Delia on: 06/30/2024 05:23 AM EST
--- OUTSIDE RECORDS SUMMARY | 2025-03-05 06:15 | XMS_ITS ---
Author Organization [facility] Address [address] [place] [address] Care Team Providers Care Community Recreation Coordinator Name Role Phone Orestes Alex MD Primary Care Provider Xenia Rojas [phone] Encounters Encounter Location Date Provider Diagnosis [facility] [address] [place] [address] 03/05/2025 Xenia Hernández Plan Of Treatment No Information Progress Notes * Richard CAT WDOB:1935 (89 yo M)Acc No.[id number]:03/05/2025 Progress Note Patient: Richard HERRERA Provider: Sherita Hernández DPM :1935 A ge:89 Y S ex:Male Date:03/05/2025 Address:[address] [place], [place] [phone] Pcp:Orestes Alex MD Subjective: * Chief Complaints: * * Medical History: Objective: * Vitals: Assessment: Plan: * Treatment: * Images: * The named appointment provid er may or may not be the originator of this progress note, and it is not deemed complete until electronically signed by the appointment provider. Sign off status: Pending * Provider: Sherita Hernández DPM Date: 0 03/05/2025 Generated for Juanai jasbir/Falaurieg/eTransmitting on: 06/30/2024 05:24 AM EST
--- OUTSIDE RECORDS SUMMARY | 2025-03-05 07:33 | XMS_ITS ---
Author Organization Orestes Alex MD Address [address] [place] [phone] Care Team Providers Care Data Collector Name Role Phone Orestes Alex Primary Care Provider Medications Medication SIG (Take, Route, Frequency, Duration) Notes Start Date End Date Status Doxycycline Hyclate 100 MG 1 capsule Ora lly Once a day for 10 day(s) 03/05/2025 Active Encounters Encounter Location Date Provider Diagnosis Orestes Alex MD [address] [place], [place] [phone] 03/05/2025 Orestes Alex Plan Of Treatment Medication Medication Name Sig Start Date Stop Date Notes Doxycycline Hyclate 100 MG 1 capsule Ora lly Once a day for 10 day(s) 03/05/2025 Next Appt Details Provider Name:Orestes javier, 05/28/2025 01:45:00 PM, [address], [address], [place], [place], [phone], Provider Name:Orestes Linda ier, 06/26/2025 07:15:00 AM, [address], [address], [place], [place], [phone], Provider Name:Orestes Linda ier, 07/03/2025 01:30:00 PM, [address], [address], [place], [phone], Progress Notes * Delia CAT WDOB:1935 (89 yo M)Acc No.[id number]:03/05/2025 Patient: Yen NOY Delia W :1935 A ge:89 Y S ex:Male Address:[address] [place] [address], [place] [address] * Refills Start Doxycycline Hyclate Capsule, 100 MG, Orally, 10, 1 capsule, Once a day, 10 day(s) * true * Date: Generated for Morelia martell/Bernardino/Zhangsmitting on: 06/30/2024 05:25 AM EST
--- OUTSIDE RECORDS SUMMARY | 2025-03-05 07:34 | XMS_ITS ---
Author Organization Orestes Alex MD Address [address] [place] [phone] Care Team Providers Care Whale Fisherman Name Role Phone Orestes Alex Primary Care Provider [phone] Encounters Encounter Location Date Provider Diagnosis Orestes Alex MD [address] [place] [phone] 03/05/2025 Orestes Alex Plan Of Treatment Next Appt Details Provider Name:Orestes javier, 05/28/2025 01:45:00 PM, [address] [facility], [address] [facility], [place], [place], [phone], Provider Name:Orestes javier, 06/26/2025 07:15:00 AM, [address] [place] [address], [address] [facility], [place], [place], [phone], Provider Name:Orestes javier, 07/03/2025 01:30:00 PM, [address], [address], [place], [phone], Progress Notes * Delia CAT WDOB:1935 (89 yo M)Acc No.[id number]:03/05/2025 Patient: Delia HERRERA :1935 A ge:89 Y S ex:Male Address:[address] [place] [address], [place] [address] * true * Date: Generated for Morelia martell/Bernardino/eTransmitting on: 06/30/2024 05:24 AM EST
--- OUTSIDE RECORDS SUMMARY | 2025-03-24 09:00 | XMS_ITS ---
Author Organization Orestes Alex MD Address [address] [place], [place] [phone] Care Team Providers Care Chef Head Name Role Phone Orestes Alex Primary Care [...] 180 MG TAKE 1 CAPSULE BY MO [facility] EVERY DAY for 30 Active Metoprolol [...] kg/m2 03/24/2025 weight is down 5 pounds [facility] 01-20-25 Encounters Encounter Location Date Provider Diagnosis Orestes Alex MD [address] [place] [phone] 03/24/2025 Orestes Alex Type 2 diabetes mellitus [...] Up: 2 Months, Reason: Provider Name:Orestes javier, 05/28/2025 01:45:00 PM, [address], [address], [place], [place], [phone], Provider Name:Orestes Linda ier, 06/26/2025 07:15:00 AM, [address], [address], [place], [phone], Provider Name:Orestes Linda ier, 07/03/2025 01:30:00 PM, [address], [address], [place], [place], [phone], Progress Notes * Delia CAT WDOB:1935 (89 yo M)Acc No.[id number]:03/24/2025 Patient: Delia HERRERA Provider: Nicolette Alex MD :1935 A ge:89 Y S ex:Male Date:03/24/2025 Address:[address] [place] [address], [facility] [place], [id number] Subjective: * Chief Complaints: * F /U/ [...] 2947 ASSAY, GLUCOSE, BLOOD QUANT, Modifiers: QW 79624 GLYCATED HEMOGLOBIN TEST, Modifiers: QW G2211 Complex e/m visit add on * Follow Up: 2 Months * * Sign off status: Completed true * Provider: Nicolette Alex MD Date: Generated for Morelia martell/Bernardino/Reynaitting on: 06/30/2024 05:23 AM EST History and Physical Notes * [...]
--- OUTSIDE RECORDS SUMMARY | 2025-04-13 10:30 | XMS_ITS ---
[facility] Organization [facility] Address [address] [facility] [place] [address] Care Team Providers Care Client Integration Manager Name Role Phone Isai DAVILA, Orestes Primary Care Provider Xenia Rojas Unavailable [phone] Medications Medication SIG (Take, Route, Frequency, Duration) Notes Start Date End Date Status Colcrys 0.6 MG 1 tablet Orally Once a day; Duration: 10 days 02/26/2013 Not-Takin g Tetanus Immune Globulin 250 UNIT/ML as directed Intramuscular Not-Taking Pneumovax 23 25 MCG/0.5ML 0.5 ml one barbara e Injection Once a day; Duration: 1 day(s) Not-Taking Itraconazole 1/1% Orally No t-Taking Farxiga 5 MG Orally Once a day Not-Taking Januvia 50 MG Orally Once a day Not-Taking Centrum Silver as directed Orally Not-Taking Ciclopirox Olamine 0.77 % 1 application to affected area Externally Twice a day; Duration: 30 days 02/28/2018 Not-Taking Aspirin 81 MG 1 tablet Orally Once a day; Duration: 30 day(s) Not-Taking Vitamin D 2000 UNIT as directed Orally Not-Taking Valsartan 320 MG 1 tablet Orally Once a day Not-Taking zzzCompression Stockings 20-30mm Hg . . .; Duration: . Not-Takin g Calcium 600mg as directed Orally Not-Taking Glimepiride 1 MG 1 tablet with breakf ast or the first main meal of the day Orally Once a day Active Vitamin C Active CoQ-10 200 MG 1 capsule with a lisa l Orally Once a day; Duration: 30 day(s) Active Atorvastatin Calcium 80mg 1 tablet Orall y Once a day; Duration: 30 day(s) Active metFORMIN HCl 500mg 1 tablet with meals Orally Twice a day; Duration: 30 day(s) Active Fish Oil 1000 MG 1 capsule Orally Onc e a day; Duration: 30 day(s) Active Tamsulosin HCl 0.4 MG 1 capsule Orally 3 0mins after supper Active Levothyroxine Sodium 125 MCG 1 tablet on an empty stomach in the morning Orally Once a day Active Vitamin D3 50 MCG (1999) 1 capsule Orally Once a day; Duration: 30 day(s) Active eliquis 5 mg Active SITagliptin Active Encounters Encounter Location Date Provider Diagnosis [facility] [place] [address] [place] [address] 04/13/2025 Xenia Hernández Plan Of Treatment No Information Progress Notes * Richard CAT WDOB:1935 (89 yo M)Acc No.[id number]:04/13/2025 Progress Note Patient: Richard HERRERA Provider: Sherita Hernández DPM :1935 A ge:89 Y S ex:Male Date:04/13/2025 Address:[address] [place] [address] , [place], [id number] Pcp:Orestse Alex MD Subjective: * Chief Complaints: * * HPI: A t Risk footcare: Pt States Last PCP Visit: D ate 0 10/30/2024 * Medical History: * Medications: T aking SITagliptin , Taking eliquis 5 mg Tablet , Taking Vitamin D3 50 MCG (1999) Capsule 1 capsule Orally Once a day , Taking Levothyroxine Sodium 125 MCG Tablet 1 tablet on an empty stomach in the morning Orally Once a day , Taking Fish Oil 1000 MG Capsule 1 capsule Orally Once a day , Taking metFORMIN HCl 500mg Tablet 1 tablet with meals Orally Twice a day , Taking Atorvastatin Calcium 80mg Tablet 1 tablet Orally Once a day , Taking CoQ-10 200 MG Capsule 1 capsule with a meal Orally Once a day , Taking Tamsulosin HCl 0.4 MG Capsule 1 capsule Orally 30mins after supper , Taking Vitamin C , Taking Glimepiride 1 MG Tablet 1 tablet with breakfast or the first main meal of the day Orally Once a day , Not-Taking/PRN Calcium 600mg Tablet as directed Orally , Not-Taking/PRN zzzCompression Stockings 20-30mm Hg 1 pair closed toe- knee high . . . , Not-Taking/PRN Valsartan 320 MG Tablet 1 tablet Orally Once a day , Not-Taking/PRN Aspirin 81 MG Tablet Chewable 1 tablet Orally Once a day , Not-Taking/PRN Ciclopirox Olamine 0.77 % Cream 1 application to affected area Externally Twice a day , Not-Taking/PRN Centrum Silver Tablet as directed Orally , Not-Taking/PRN Januvia 50 MG Tablet Orally Once a day , Not-Taking/PRN Vitamin D 2000 UNIT Tablet as directed Orally , Not-Taking/PRN Farxiga 5 MG Tablet Orally Once a day , Not-Taking/PRN Itraconazole 1/1% Solution Orally , Not-Taking/PRN Pneumovax 23 25 MCG/0.5ML Injectable 0.5 ml one time Injection Once a day , Not-Taking/PRN Tetanus Immune Globulin 250 UNIT/ML Injectable as directed Intramuscular , Not- Taking/PRN Colcrys 0.6 MG Tablet 1 tablet Orally Once a day Objective: * Vitals: Assessment: Plan: * Treatment: * Images: * The named appointment provid er may or may not be the originator of this progress note, and it is not deemed complete until electronically signed by the appointment provider. Sign off status: Pending * Provider: Sherita Hernández DPM Date: 06/13/2024 Generated for Morelia Ortega on: 06/30/2024 05:23 AM EST History and Physical Notes * HPI (History of Present Illness) Category Sub-Category Detail Notes Category Not es At Risk footcare Pt States Last PCP Visit: Date:
--- NOTE | ~2025-04-29 | XR_ITS ---
CLINICAL HISTORY: fall, pain 3 view, pelvis and right hip Comparison: None provided Findings: The bones are intact. No significant arthritic change of the hips. The soft tissues are unremarkable. IMPRESSION: No acute findings. This document has been electronically signed by: Ney Tao MD on 05/03/2025 07:48:28
--- NOTE | ~2025-04-29 | XR_ITS ---
EXAMINATION: XR CHEST 1 VIEW HISTORY: SOB COMPARISON: Comparison is made with the prior examination dated 03/24/2025. FINDINGS: A single AP portable view of the chest performed at 4:21 AM is submitted. Again seen is scarring and increased interstitial markings bilaterally. No focal airspace opacity is seen. There is no pleural effusion, pneumothorax, or pulmonary vascular congestion. The heart is normal in size. 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 XR/XR chest 1V IMPRESSION: Pulmonary scarring and increased interstitial markings. No acute cardiopulmonary abnormality. Electronically signed by: Mario Moore MD 04/30/2025 06:58 AM [facility] [place]
[2025-04-29 21:00] VITALS: BP 131/54; BP 150/59; PULSE 54; PULSE 67; RESP 30; O2SAT 93; O2SAT 96; BMI 20.3
--- NOTE | 2025-04-29 21:12 | ECG_ITS ---
Test Reason : hyperglycemic Blood Pressure : */* mmHG Vent. Rate : 56 BPM Atrial Rate : 56 BPM P-R Int : 182 ms QRS Dur : 120 ms QT Int : 458 ms P-R-T Axes : 103 -62 0 degrees QTcB Int : 441 ms Atrial flutter Left anterior fascicular block Minimal voltage criteria for LVH, may be normal variant ( Erick product ) Inferior infarct , age undetermined Cannot rule out Anterior infarct (cited on or before 13-Nov-2023) Abnormal ECG When compared with ECG of 24-Dec-2024 15:11, No significant changes seen Referred By: Everardo Alejandra Electronically Signed By: BENJY JOHNS
--- NOTE | 2025-04-29 21:12 | PC.NURSE ---
pt biba from home, lives alone, son reports to EMS pt confusion has been increasing over the last few months. Pt reports using a walker to ambulate, 02 to be used at 2L baseline, pt was off 02 when EMS arrived. Blood sugar was HIGH for EMS x2, HIGH reading here as well, provider aware. pt on 2L 02 w/ sp02 at 96%.
--- NOTE | 2025-04-29 21:14 | MHC.EDTECH ---
patient poc read (HI). nurse aware
--- NOTE | 2025-04-29 21:43 | ED.GENADULT ---
HPI - General Adult General Chief complaint: General Medical Stated complaint: INCREASED CONFUSION HIGH BLOOD SUGAR Time Seen by Provider: 04/29/25 21:41 Source: patient and EMS Mode of arrival: EMS Limitations: no limitations History of Present Illness ED Provider: Dr. Kerline Lake HPI narrative: Patient comes to the emergency room via ambulance. Patient's son called because the patient has not been eating well, seems that the patient is morning confused than usual. No reported falls. The patient's son called 911. When EMS arrived, patient's glucose was reading ?high?. IV fluids were given to the patient. According to the patient's son, the patient lives with his . The has services, can not take care of herself and certainly can not take care of the patient. Patient usually takes care of himself. It is unclear how long he has been confused. Related Data Home Medications ?Medication ?Instructions ?Recorded ?Confirmed atorvastatin 80 mg tablet 80 mg PO DAILY 04/02/20 03/18/25 tamsulosin 0.4 mg capsule 0.4 mg PO BEDTIME 04/02/20 03/18/25 metformin 500 mg tablet 1,000 mg PO BID 09/20/21 03/18/25 blood sugar diagnostic (FreeStyle #10 ea 08/28/22 02/26/25 Lite Strips) levothyroxine 125 mcg tablet 125 mcg PO DAILY@0600 08/28/22 03/18/25 cholecalciferol (vitamin D3) 50 50 mcg PO BEDTIME 11/24/22 03/18/25 mcg (2,000 unit) tablet (Vitamin D3) coenzyme Q10 100 mg capsule 100 mg PO DAILY 11/24/22 03/18/25 (CoQ-10) ferrous sulfate 325 mg (65 mg 325 mg PO DAILY 11/24/22 03/18/25 iron) tablet (FeroSul) omega 7-xuw-ixg-fish oil 1,000 mg 1 cap PO DAILY 11/24/22 03/18/25 (120 mg-180 mg) capsule (Fish Oil) ascorbic acid (vitamin C) 500 mg 1,000 mg PO DAILY 12/25/24 03/18/25 tablet (Vitamin C) carbamide peroxide 6.5 % ear drops 5 drp otic (ears) TID 12/25/24 03/18/25 diltiazem HCl 180 mg 180 mg PO DAILY 12/25/24 03/18/25 capsule,extended release 24 hr, controlled (DILT-XR) glipizide 5 mg tablet 5 mg PO DAILY 12/25/24 03/18/25 peg 400-propylene glycol 0.4 %-0.3 1 drp ophthalmic (eye) TID Dry Eye 12/25/24 03/18/25 % eye drops sitagliptin 50 mg tablet 50 mg PO DAILY 12/25/24 03/18/25 Previous Rx's ?Medication ?Instructions ?Recorded dapagliflozin propanediol 5 mg 5 mg PO DAILY #30 tabs 02/26/25 tablet (Farxiga) cefpodoxime 200 mg tablet 200 mg PO BID #20 tabs 03/04/25 apixaban 5 mg tablet (Eliquis) 5 mg PO BID #180 tabs 03/18/25 furosemide 40 mg tablet 40 mg PO BID #180 tabs 03/18/25 metoprolol succinate 50 mg 50 mg PO BEDTIME #90 tabs 03/18/25 tablet,extended release 24 hr (Toprol XL) Allergies Allergy/AdvReac Type Severity Reaction Status Date / Time No Known Allergies (No Known Allergy Verified 04/29/25 21:02 Allergies*) Review of Systems Review of Systems: Constitutional : Complaining of general malaise and fatigue ENT/Mouth : No Hearing loss, No Ear Pain, No Nasal Congestion, No Sinus Pain, No Hoarseness, No sore throat, No Rhinorrhea, No Swallowing Difficulty Eyes: No Eye Pain, No Swelling, No Redness, No Foreign Body, No Discharge, No Vision Changes Cardiovascular : No Chest Pain, No SOB, No Dyspnea on Exertion, No Orthopnea, No Edema, No Palpitations Respiratory : No Cough, No Sputum, No Wheezing, No Smoke Exposure, No Dyspnea Gastrointestinal : No Nausea, No Vomiting, No Diarrhea, No Constipation, No abdominal Pain, No Hematochezia, No Melena Genitourinary : no irregular bleeding, No Dysuria, No Urinary Frequency, No Hematuria, No Urinary Incontinence, No Urgency, No Flank Pain, No Urinary Flow Changes, No Hesitancy Musculoskeletal : No joint pain, No Myalgias, No Joint Swelling Skin : No Skin Lesions, No rash Neuro : No Weakness, No Numbness, No Paresthesias, No Loss of Consciousness, No Dizziness, No Headache Psych : No Anxiety/Panic, No Depression, No SI/HI/AH/VH, No Social Issues, Heme/Lymph: No Bruising, No Bleeding,No Lymphadenopathy Endocrine : Complaining of high blood sugar, No Polyuria, No Polydipsia, No Temperature Intolerance [facility] Past Medical History Medical History Atrial flutter Hypercalcemia TAYLOR (acute kidney injury) Acute hyperglycemia HTN (hypertension) Aortic stenosis Arthritis of right knee Calcific tendinitis of left shoulder Orthostasis (~2014) Diabetes mellitus (~2014) Knee effusion (~11/15/14) Hyperlipidemia (~2012) Hypothyroidism (~2012) Surgical History S/P TAVR (transcatheter aortic valve replacement) S/P wrist surgery History of cardiac cath Family History Family History Father No problems noted. Mother Cancer Social History Social History Household Members: Spouse Housing: House Do you presently have visiting nurse or other home services: Yes (2 days a week) Alcohol intake: never Patient Tobacco Use Status: Former Tobacco user Tobacco use type: Pipe Years Smoked: 10 Smoked in Last 30 Days: No Advance Directives: Yes Advance Directives on File: Yes Advance Directives Date on File: 11/24/22 service: No Current occupational status: retired Current occupation: Right Handed Physical Exam ED Exam Exam: Appearance: Alert. Oriented X3. No acute distress. Seems a bit weak, having trouble sitting up by himself Eyes: Pupils equal, round and reactive to light. ENT: Pharynx normal. Neck: Normal inspection. Neck supple. No lymph nodes noted. No crepitus CVS: Normal heart rate and rhythm. Pulses normal. Normal S1 and S2 Respiratory: No respiratory distress. Breath sounds normal. No Wheezing. No rales Abdomen: Soft and nontender. No rigidity. No distention. Skin: Skin warm and dry. Normal skin color. Normal skin turgor. Extremities: No lower extremity edema. No Lacerations. No Rash Neuro: Oriented X 3. No motor deficit. No sensory deficit. Moving all extremities. No slurred speech. CN 2 through 12 grossly intact Psych: calm, cooperative, normal affect Vital Signs: Vital Signs - 24 hr 04/29/25 21:00 04/29/25 22:42 04/30/25 00:55 Temperature 97.7 F Pulse Rate 67 57 56 Respiratory Rate 30 H 20 12 Blood Pressure 150/59 H 125/55 L 131/54 L Pulse Oximetry 93 96 99 Oxygen Delivery Method Room Air Nasal Cannula Nasal Cannula Room Air Oxygen Flow Rate 2 BMI result Body Mass Index 20.3 Course Course Course Narrative: Patient known to have a high blood glucose. Patient known to be type 2 diabetic All of patient's labs pending Medications Administered Discontinued Medications Generic Name Dose Route Start Last Admin Trade Name Freq PRN Reason Stop Dose Admin Sodium Chloride 3,000 mls @ 999 mls/hr 04/29/25 22:19 04/30/25 02:00 Ns IVCONT 04/30/25 01:19 Infused .Q3H1M ONE Infusion Insulin Human Regular 10 unit 04/29/25 22:19 04/29/25 22:38 Insulin Regular, Human 100 Unit/Ml 10 Ml Vial IVPUSH 04/29/25 22:20 10 unit ONCE ONE Administration Insulin Human Regular 10 unit 04/29/25 23:37 04/29/25 23:47 Insulin Regular, Human 100 Unit/Ml 10 Ml Vial IVPUSH 04/29/25 23:38 10 unit ONCE ONE Administration Ondansetron HCl 4 mg 04/29/25 22:41 04/29/25 22:51 Ondansetron Hcl 4 Mg/2 Ml Vial IVPUSH 04/29/25 22:42 4 mg ONCE ONE Administration Medical Decision Making Medical Decision Making [facility] Narrative: My interpretation of labs: Patient's hematology does not show any significant abnormality. However, patient's sodium is 124, likely secondary to glucose of 811, bicarb 13, anion gap 27, creatinine 1.85 which is above patient's baseline. Patient was given 3 L of fluid, 2 doses of IV insulin, 10 units each. Second set of labs: Patient's sodium improved to 134 with a glucose of 416, bicarb 18, anion gap 20/closed, creatinine 1.59 Patient's lipase was a bit bumped. However, he does not have abdominal pain. I discussed the patient with Dr. Grubbs, patient being admitted. Differential Diagnosis Differential Diagnoses: The differential diagnosis associated with the presentation includes (DKA, medication noncompliance, hyperglycemia for type 2 diabetes, TAYLOR) Admission/Observation Consideration of admission/observation: Escalation of care including admission/observation considered Consult Healthcare Provider Management of the patient was discussed with: Hospitalist Lab Data MDM Lab Attestation statement: I reviewed the patient's lab results. 04/29/25 21:35 04/30/25 02:05 Labs: Lab Results 04/29/25 04/29/25 04/29/25 Range/Units 21:03 21:35 21:41 WBC 11.1 H (4.8-10.8) X10*3/uL RBC 3.98 L (4.60-5.80) X10*6/uL Hgb 13.3 L (14.0-18.0) g/dl Hct 38.8 L (42.0-52.0) % MCV 97.5 (80.0-98.0) fL MCH 33.4 H (27.0-33.0) pg MCHC 34.3 (31.0-36.0) g/dl RDW 13.2 (11.0-16.0) % Plt Count 131 L D (160-400) X10*3/uL MPV 11.3 (9.4-12.4) fL Immature Gran % (Auto) 0.6 H (0.0-0.4) % Neut % (Auto) 66.3 (45-73) % Lymph % (Auto) 24.1 (20-40) % Kendall % (Auto) 7.5 (2-11) % Eos % (Auto) 1.0 (0-4) % Baso % (Auto) 0.5 (0-2) % Lymph # (Auto) 2.7 (1.2-4.9) X10*3/uL Kendall # (Auto) 0.8 (0.1-1.2) X10*3/uL Eos # (Auto) 0.1 (0.0-0.4) X10*3/uL Baso # (Auto) 0.1 (0.0-0.2) X10*3/uL Abs Immat Gran (auto) 0.07 H (0.00-0.03) X10*3/uL Absolute Neuts (auto) 7.4 (2.0-8.3) x10*3/uL Absolute Nucleated RBC 0.000 (0.0-0.012) X10*3/uL Nucleated RBC % (auto) 0.0 (0.0-0.2) /100WBC VBG pH (7.32-7.43) VBG pCO2 mmHg VBG pO2 mmHg VBG HCO3 (22-26) mmol/L VBG O2 Saturation % VBG Base Excess mmol/L Sodium 124 L (135-145) mmol/L Potassium 4.9 (3.3-5.1) mmol/L Chloride 89 L (96-108) mmol/L Carbon Dioxide 13 L (22-29) mmol/L Anion Gap 27 H (12-20) BUN 52 H (9-16) mg/dL Creatinine 1.95 H (0.5-1.4) mg/dL Estim Creat Clear Calc 24.0 Estimated GFR 33 POC Glucose > 600 H* (60-115) mg/dL Random Glucose 811 H* (60-115) mg/dL Calcium 9.9 (8.4-10.2) mg/dL Total Bilirubin 1.1 H (0.0-1.0) mg/dL AST 32 (5-37) U/L ALT 30 (0-40) U/L Alkaline Phosphatase 252 H (39-117) U/L Total Protein 7.7 (6.5-8.0) g/dL Albumin 4.2 (3.5-5.0) g/dL Lipase 126 H (8-78) U/L Beta-Hydroxybutyrate 1.19 H (0.02-0.27) mmol/L Urine Color Yellow Urine Appearance Clear Urine pH 5.0 (5.0-9.0) Ur Specific [place] 1.020 (1.005-1.025) Urine Protein Negative (Neg-Trace) mg/dL Urine Glucose (UA) >=1000 H (Negative) mg/dL Urine Ketones Negative (Negative) mg/dL Urine Blood Negative (Negative) Urine Nitrite Negative (Negative) Ur Leukocyte Esterase Negative (Negative) Urine RBC 0-2 (0-2) /HPF Urine WBC 0-5 (0-5) /HPF Ur Squamous Epith Cells 0-2 (0-2) /HPF Urine Bacteria None Seen (None Seen) Hyaline Casts 0-2 (0-2) /LPF 04/29/25 04/29/25 04/29/25 Range/Units 21:50 22:13 22:24 WBC (4.8-10.8) X10*3/uL RBC (4.60-5.80) X10*6/uL Hgb (14.0-18.0) g/dl Hct (42.0-52.0) % MCV (80.0-98.0) fL MCH (27.0-33.0) pg MCHC (31.0-36.0) g/dl RDW (11.0-16.0) % Plt Count (160-400) X10*3/uL MPV (9.4-12.4) fL Immature Gran % (Auto) (0.0-0.4) % Neut % (Auto) (45-73) % Lymph % (Auto) (20-40) % Kendall % (Auto) (2-11) % Eos % (Auto) (0-4) % Baso % (Auto) (0-2) % Lymph # (Auto) (1.2-4.9) X10*3/uL Kendall # (Auto) (0.1-1.2) X10*3/uL Eos # (Auto) (0.0-0.4) X10*3/uL Baso # (Auto) (0.0-0.2) X10*3/uL Abs Immat Gran (auto) (0.00-0.03) X10*3/uL Absolute Neuts (auto) (2.0-8.3) x10*3/uL Absolute Nucleated RBC (0.0-0.012) X10*3/uL Nucleated RBC % (auto) (0.0-0.2) /100WBC VBG pH 7.39 (7.32-7.43) VBG pCO2 24 mmHg VBG pO2 51 mmHg VBG HCO3 15 L (22-26) mmol/L VBG O2 Saturation 77.0 % VBG Base Excess -7.8 mmol/L Sodium (135-145) mmol/L Potassium (3.3-5.1) mmol/L Chloride (96-108) mmol/L Carbon Dioxide (22-29) mmol/L Anion Gap (12-20) BUN (9-16) mg/dL Creatinine (0.5-1.4) mg/dL Estim Creat Clear Calc Estimated GFR POC Glucose > 600 H* > 600 H* (60-115) mg/dL Random Glucose (60-115) mg/dL Calcium (8.4-10.2) mg/dL Total Bilirubin (0.0-1.0) mg/dL AST (5-37) U/L ALT (0-40) U/L Alkaline Phosphatase (39-117) U/L Total Protein (6.5-8.0) g/dL Albumin (3.5-5.0) g/dL Lipase (8-78) U/L Beta-Hydroxybutyrate (0.02-0.27) mmol/L Urine Color Urine Appearance Urine pH (5.0-9.0) Ur Specific [place] (1.005-1.025) Urine Protein (Neg-Trace) mg/dL Urine Glucose (UA) (Negative) mg/dL Urine Ketones (Negative) mg/dL Urine Blood (Negative) Urine Nitrite (Negative) Ur Leukocyte Esterase (Negative) Urine RBC (0-2) /HPF Urine WBC (0-5) /HPF Ur Squamous Epith Cells (0-2) /HPF Urine Bacteria (None Seen) Hyaline Casts (0-2) /LPF 04/29/25 04/29/25 04/30/25 Range/Units 23:13 23:35 00:54 WBC (4.8-10.8) X10*3/uL RBC (4.60-5.80) X10*6/uL Hgb (14.0-18.0) g/dl Hct (42.0-52.0) % MCV (80.0-98.0) fL MCH (27.0-33.0) pg MCHC (31.0-36.0) g/dl RDW (11.0-16.0) % Plt Count (160-400) X10*3/uL MPV (9.4-12.4) fL Immature Gran % (Auto) (0.0-0.4) % Neut % (Auto) (45-73) % Lymph % (Auto) (20-40) % Kendall % (Auto) (2-11) % Eos % (Auto) (0-4) % Baso % (Auto) (0-2) % Lymph # (Auto) (1.2-4.9) X10*3/uL Kendall # (Auto) (0.1-1.2) X10*3/uL Eos # (Auto) (0.0-0.4) X10*3/uL Baso # (Auto) (0.0-0.2) X10*3/uL Abs Immat Gran (auto) (0.00-0.03) X10*3/uL Absolute Neuts (auto) (2.0-8.3) x10*3/uL Absolute Nucleated RBC (0.0-0.012) X10*3/uL Nucleated RBC % (auto) (0.0-0.2) /100WBC VBG pH (7.32-7.43) VBG pCO2 mmHg VBG pO2 mmHg VBG HCO3 (22-26) mmol/L VBG O2 Saturation % VBG Base Excess mmol/L Sodium (135-145) mmol/L Potassium (3.3-5.1) mmol/L Chloride (96-108) mmol/L Carbon Dioxide (22-29) mmol/L Anion Gap (12-20) BUN (9-16) mg/dL Creatinine (0.5-1.4) mg/dL Estim Creat Clear Calc Estimated GFR POC Glucose > 600 H* 577 H* 415 H* (60-115) mg/dL Random Glucose (60-115) mg/dL Calcium (8.4-10.2) mg/dL Total Bilirubin (0.0-1.0) mg/dL AST (5-37) U/L ALT (0-40) U/L Alkaline Phosphatase (39-117) U/L Total Protein (6.5-8.0) g/dL Albumin (3.5-5.0) g/dL Lipase (8-78) U/L Beta-Hydroxybutyrate (0.02-0.27) mmol/L Urine Color Urine Appearance Urine pH (5.0-9.0) Ur Specific [place] (1.005-1.025) Urine Protein (Neg-Trace) mg/dL Urine Glucose (UA) (Negative) mg/dL Urine Ketones (Negative) mg/dL Urine Blood (Negative) Urine Nitrite (Negative) Ur Leukocyte Esterase (Negative) Urine RBC (0-2) /HPF Urine WBC (0-5) /HPF Ur Squamous Epith Cells (0-2) /HPF Urine Bacteria (None Seen) Hyaline Casts (0-2) /LPF 04/30/25 04/30/25 Range/Units 02:05 02:20 WBC (4.8-10.8) X10*3/uL RBC (4.60-5.80) X10*6/uL Hgb (14.0-18.0) g/dl Hct (42.0-52.0) % MCV (80.0-98.0) fL MCH (27.0-33.0) pg MCHC (31.0-36.0) g/dl RDW (11.0-16.0) % Plt Count (160-400) X10*3/uL MPV (9.4-12.4) fL Immature Gran % (Auto) (0.0-0.4) % Neut % (Auto) (45-73) % Lymph % (Auto) (20-40) % Kendall % (Auto) (2-11) % Eos % (Auto) (0-4) % Baso % (Auto) (0-2) % Lymph # (Auto) (1.2-4.9) X10*3/uL Kendall # (Auto) (0.1-1.2) X10*3/uL Eos # (Auto) (0.0-0.4) X10*3/uL Baso # (Auto) (0.0-0.2) X10*3/uL Abs Immat Gran (auto) (0.00-0.03) X10*3/uL Absolute Neuts (auto) (2.0-8.3) x10*3/uL Absolute Nucleated RBC (0.0-0.012) X10*3/uL Nucleated RBC % (auto) (0.0-0.2) /100WBC VBG pH (7.32-7.43) VBG pCO2 mmHg VBG pO2 mmHg VBG HCO3 (22-26) mmol/L VBG O2 Saturation % VBG Base Excess mmol/L Sodium 134 L (135-145) mmol/L Potassium 3.7 D (3.3-5.1) mmol/L Chloride 100 (96-108) mmol/L Carbon Dioxide 18 L (22-29) mmol/L Anion Gap 20 (12-20) BUN 48 H (9-16) mg/dL Creatinine 1.59 H (0.5-1.4) mg/dL Estim Creat Clear Calc 29.4 Estimated GFR 41 POC Glucose 416 H* (60-115) mg/dL Random Glucose 451 H* (60-115) mg/dL Calcium 9.0 D (8.4-10.2) mg/dL Total Bilirubin (0.0-1.0) mg/dL AST (5-37) U/L ALT (0-40) U/L Alkaline Phosphatase (39-117) U/L Total Protein (6.5-8.0) g/dL Albumin (3.5-5.0) g/dL Lipase 102 H (8-78) U/L Beta-Hydroxybutyrate 0.76 H (0.02-0.27) mmol/L Urine Color Urine Appearance Urine pH (5.0-9.0) Ur Specific [place] (1.005-1.025) Urine Protein (Neg-Trace) mg/dL Urine Glucose (UA) (Negative) mg/dL Urine Ketones (Negative) mg/dL Urine Blood (Negative) Urine Nitrite (Negative) Ur Leukocyte Esterase (Negative) Urine RBC (0-2) /HPF Urine WBC (0-5) /HPF Ur Squamous Epith Cells (0-2) /HPF Urine Bacteria (None Seen) Hyaline Casts (0-2) /LPF Independent Interpretation I performed an independent interpretation of an: EKG Critical Care Time Critical Care Time Critical Care Time: Yes Total Critical Care Time: 60 Attestation: I have personally provided critical care time. Time includes review of lab data, radiology results, discussion with consultants, and monitoring for potential decompensation. Intervention performed as documented. Discharge Plan Discharge Clinical Impression: Acute hyperglycemia, TAYLOR (acute kidney injury) Patient Disposition: Admitted As Inpatient Print Language: Uzbek
[2025-04-29 21:46] LABS: Glucose, Whole Blood > 600 mg/dL (60-115)
[2025-04-29 21:47] LABS: MANUAL DIFF FLAG NO
[2025-04-29 21:48] LABS: Hematocrit 38.8 % (42.0-52.0); Hemoglobin 13.3 g/dl (14.0-18.0); Imm Gran Abs Auto 0.07 X10*3/uL (0.00-0.03); Imm Gran Pct Auto 0.6 % (0.0-0.4); Lymphocytes Absolute Auto 2.7 X10*3/uL (1.2-4.9); Mean Corpuscular HGB Conc 34.3 g/dl (31.0-36.0); Mean Corpuscular Hemoglobin 33.4 pg (27.0-33.0); Mean Corpuscular Volume 97.5 fL (80.0-98.0); NRBC Abs Auto 0.000 X10*3/uL (0.0-0.012); NRBC Pct Auto 0.0 /100WBC (0.0-0.2); Platelet Count 131 X10*3/uL (160-400); Red Blood Count 3.98 X10*6/uL (4.60-5.80); White Blood Count 11.1 X10*3/uL (4.8-10.8)
[2025-04-29 21:50] LABS: Appearance Urine Clear; Glucose Urine UA >=1000 mg/dL (Negative); PH 5.0 (5.0-9.0); Specific Gravity - Urine 1.020 (1.005-1.025); UMIC TRIGGER UACC YES
[2025-04-29 22:05] LABS: VBG HCO3 15 mmol/L (22-26); VBG O2 % Saturation 77.0 %
[2025-04-29 22:09] LABS: Alanine Aminotransferase 30 U/L (0-40); Albumin Level 4.2 g/dL (3.5-5.0); Alkaline Phosphatase 252 U/L (39-117); Anion Gap 27 (12-20); Aspartate Amino Transferase 32 U/L (5-37); Blood Urea Nitrogen 52 mg/dL (9-16); Calcium 9.9 mg/dL (8.4-10.2); Carbon Dioxide 13 mmol/L (22-29); Chloride 89 mmol/L (96-108); Creatinine Clr Calc Pharmacy 24.0; Estimated Glomerular Filt Rate 33; Lipase 126 U/L (8-78); Potassium 4.9 mmol/L (3.3-5.1); Sodium 124 mmol/L (135-145); Total Protein 7.7 g/dL (6.5-8.0)
[2025-04-29 22:20] LABS: Venous Blood Gas Refer to POC result
[2025-04-29 22:28] LABS: Glucose, Whole Blood > 600 mg/dL (60-115)
[2025-04-29 22:28] LABS: Glucose, Whole Blood > 600 mg/dL (60-115)
[2025-04-29 22:42] VITALS: BP 125/55; PULSE 57; RESP 20; O2SAT 96
[2025-04-29 23:17] LABS: Glucose, Whole Blood > 600 mg/dL (60-115)
[2025-04-29 23:40] LABS: Glucose, Whole Blood 577 mg/dL (60-115)
[2025-04-30] VITALS (12 sets, daily range): BP systolic 103–163; BP diastolic 50–76; PULSE 56–104; RESP 11–22; TEMP 36.1–36.8; O2SAT 91–99; BMI 20.9
[2025-04-30 02:29] LABS: Glucose, Whole Blood 415 mg/dL (60-115)
[2025-04-30 02:29] LABS: Glucose, Whole Blood 416 mg/dL (60-115)
[2025-04-30 02:54] LABS: Anion Gap 20 (12-20); Blood Urea Nitrogen 48 mg/dL (9-16); Calcium 9.0 mg/dL (8.4-10.2); Carbon Dioxide 18 mmol/L (22-29); Chloride 100 mmol/L (96-108); Creatinine Clr Calc Pharmacy 29.4; Estimated Glomerular Filt Rate 41; Lipase 102 U/L (8-78); Potassium 3.7 mmol/L (3.3-5.1); Sodium 134 mmol/L (135-145)
--- NOTE | 2025-04-30 03:42 | P.HPHOSP_ITS ---
History of Present Illness Date of Service: 04/30/25 Attending physician on admission: Gume Grubbs Chief Complaint: confusion Patient is an 89-year-old male has been history significant for type 2 diabetes, HFpEF, history TAVR, nocturnal hypoxemia, HTN, atrial flutter on Eliquis, and hypothyroid, who presented to the ED via EMS as the patient's son called because the patient was confused. No reported falls. When EMS arrived to see the patient to glucose reading was 800, IV fluids were given. The patient lives alone with his who has services, she is unable to help with his care. He reports he has been taking his medications and prescribed but later reports a fever for the past few days and mild SOB. no nausea, vomiting, abd pain or urinary sx. he reports a mild cough which is at baseline. Review of Systems 2 Constitutional: Constitutional: Denies fatigue, Reports fever(s) and Denies headache(s) Eyes: Eyes: Denies blurry vision ENT: Denies headache(s), Denies nasal congestion and Denies sore throat Cardiovascular: Cardiovascular: Denies chest pain and Reports dyspnea Respiratory: Respiratory: Reports cough, Reports dyspnea and Reports wheezing Gastrointestinal: Gastrointestinal: Denies abdominal pain, Denies nausea and Denies vomiting Genitourinary: Genitourinary: Denies dysuria Musculoskeletal: Musculoskeletal: Denies myalgias Integumentary/Breasts: Skin/Breast: Denies rash Neurologic: Reports confusion and Denies headache(s) Psychiatric: Psychiatric: Reports confusion Endocrine: Endocrine: Denies fatigue Hematologic/Lymphatic: Hematologic/Lymphatic: Denies easy bleeding Allergic/Immunologic: Allergic/Immunologic: Reports wheezing [facility] Medical History Atrial flutter Hypercalcemia TAYLOR (acute kidney injury) Acute hyperglycemia HTN (hypertension) Aortic stenosis Arthritis of right knee Calcific tendinitis of left shoulder Orthostasis (~2014) Diabetes mellitus (~2014) Knee effusion (~11/15/14) Hyperlipidemia (~2012) Hypothyroidism (~2012) Family History Father No problems noted. 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 Glucose (Glucose Gel 15 Gm Gel..Gram.) 15 gm PO Q15M PRN; Protocol PRN Reason: per Hypoglycemia Standing Ord. Insulin Human Lispro (Insulin Lispro 100 Unit/Ml 3 Ml Vial) 0 unit [facility]; Protocol Home Medications ?Medication ?Instructions ?Recorded ?Confirmed ?Last Taken ?Type atorvastatin 80 mg tablet 80 mg PO DAILY 04/02/2002/0212/24/24 History tamsulosin 0.4 mg capsule 0.4 mg PO BEDTIME 04/02/20 12/24/24 History metformin 500 mg tablet 1,000 mg PO BID 09/20/2102/0212/24/24 History blood sugar diagnostic (FreeStyle #10 ea 08/28/2202/09 Unknown History Lite Strips) levothyroxine 125 mcg tablet 125 mcg PO DAILY@0600 03/18/25 12/24/24 History cholecalciferol (vitamin D3) 50 50 mcg PO BEDTIME 11/0903/18/25 12/23/24 History mcg (2,000 unit) tablet (Vitamin D3) coenzyme Q10 100 mg capsule 100 mg PO DAILY 11/24/22 1 12/24/24 History (CoQ-10) ferrous sulfate 325 mg (65 mg 325 mg PO DAILY 11/24/22 03/18/25 12/24/24 History iron) tablet (FeroSul) omega 4-vnp-jpv-fish oil 1,000 mg 1 cap PO DAILY 11/2403/18/25 12/24/24 History (120 mg-180 mg) capsule (Fish Oil) ascorbic acid (vitamin C) 500 mg 1,000 mg PO DAILY 03/18/25 12/24/24 History tablet (Vitamin C) carbamide peroxide 6.5 % ear drops 5 drp otic (ears) T ID 12/25/24 03/18/25 12/24/24 History diltiazem HCl 180 mg 180 mg PO DAILY 12/25/2402/0212/24/24 History capsule,extended release 24 hr, controlled (DILT-XR) glipizide 5 mg tablet 5 mg PO DAILY 12/25/2403/1812/24/24 History peg 400-propylene glycol 0.4 %-0.3 1 drp ophthalmic (e ye) TID Dry Eye 12/25/24 03/18/25 12/24/24 History % eye drops sitagliptin 50 mg tablet 50 mg PO DAILY 12/25/24 10/0 02/0212/24/24 History Physical Exam 2 Vital Signs and Narrative: Vital Signs: Last Vital Signs Temp 97.7 F 04/30/25 00:55 Pulse 56 04/30/25 00:55 Resp 12 04/30/25 00:55 BP 131/54 L 04/30/25 00:55 Pulse Ox 99 04/30/25 00:55 O2 Del Method Room Air 04/30/25 00:55 O2 Flow Rate 2 04/29/25 22:42 Oxygen Flow Rate 2 04/29/25 21:00 BMI result Body Mass Index 20.3 General: AOx3, no acute distress,weak Resp: expiratory wheezing throughout, rhonchorus CVS: S1, S2, RRR GI: +BS, NT, no distention Skin: Warm, dry Neuro: Cranial nerves II-XII grossly intact bilaterally. Motor grossly intact bilaterally Extremities: No pitting edema Psych: Appropriate affect Const: General: confusion Orientation/consciousness: confusion Neuro: General: confusion Results Labs 04/30/25 05:04 04/30/25 05:04 Labs: Laboratory Results - last 24 hr 04/29/25 04/29/25 04/29/25 21:03 21:35 21:41 MCV 97.5 MCH 33.4 H MCHC 34.3 RDW 13.2 Plt Count 131 L D MPV 11.3 Immature Gran % (Auto) 0.6 H Neut % (Auto) 66.3 Lymph % (Auto) 24.1 [place] % (Auto) 7.5 Eos % (Auto) 1.0 Baso % (Auto) 0.5 Lymph # (Auto) 2.7 [place] # (Auto) 0.8 Eos # (Auto) 0.1 Baso # (Auto) 0.1 Abs Immat Gran (auto) 0.07 H Absolute Neuts (auto) 7.4 Absolute Nucleated RBC 0.000 Nucleated RBC % (auto) 0.0 VBG pH VBG pCO2 VBG pO2 VBG HCO3 VBG O2 Saturation VBG Base Excess Anion Gap 27 H Estim Creat Clear Calc 24.0 Estimated GFR 33 POC Glucose > 600 H* Random Glucose 811 H* Calcium 9.9 Total Bilirubin 1.1 H AST 32 ALT 30 Alkaline Phosphatase 252 H Total Protein 7.7 Albumin 4.2 Lipase 126 H Beta-Hydroxybutyrate 1.19 H Urine Color Yellow Urine Appearance Clear Urine pH 5.0 Ur Specific [place] 1.020 Urine Protein Negative Urine Glucose (UA) >=1000 H Urine Ketones Negative Urine Blood Negative Urine Nitrite Negative Ur Leukocyte Esterase Negative Urine RBC 0-2 Urine WBC 0-5 Ur Squamous Epith Cells 0-2 Urine Bacteria None Seen Hyaline Casts 0-2 04/29/25 04/29/25 04/29/25 21:50 22:13 22:24 MCV MCH MCHC RDW Plt Count MPV Immature Gran % (Auto) Neut % (Auto) Lymph % (Auto) [place] % (Auto) Eos % (Auto) Baso % (Auto) Lymph # (Auto) [place] # (Auto) Eos # (Auto) Baso # (Auto) Abs Immat Gran (auto) Absolute Neuts (auto) Absolute Nucleated RBC Nucleated RBC % (auto) VBG pH 7.39 VBG pCO2 24 VBG pO2 51 VBG HCO3 15 L VBG O2 Saturation 77.0 VBG Base Excess -7.8 Anion Gap Estim Creat Clear Calc Estimated GFR POC Glucose > 600 H* > 600 H* Random Glucose Calcium Total Bilirubin AST ALT Alkaline Phosphatase Total Protein Albumin Lipase Beta-Hydroxybutyrate Urine Color Urine Appearance Urine pH Ur Specific [place] Urine Protein Urine Glucose (UA) Urine Ketones Urine Blood Urine Nitrite Ur Leukocyte Esterase Urine RBC Urine WBC Ur Squamous Epith Cells Urine Bacteria Hyaline Casts 04/29/25 04/29/25 04/30/25 23:13 23:35 00:54 MCV MCH MCHC RDW Plt Count MPV Immature Gran % (Auto) Neut % (Auto) Lymph % (Auto) [place] % (Auto) Eos % (Auto) Baso % (Auto) Lymph # (Auto) [place] # (Auto) Eos # (Auto) Baso # (Auto) Abs Immat Gran (auto) Absolute Neuts (auto) Absolute Nucleated RBC Nucleated RBC % (auto) VBG pH VBG pCO2 VBG pO2 VBG HCO3 VBG O2 Saturation VBG Base Excess Anion Gap Estim Creat Clear Calc Estimated GFR POC Glucose > 600 H* 577 H* 415 H* Random Glucose Calcium Total Bilirubin AST ALT Alkaline Phosphatase Total Protein Albumin Lipase Beta-Hydroxybutyrate Urine Color Urine Appearance Urine pH Ur Specific [place] Urine Protein Urine Glucose (UA) Urine Ketones Urine Blood Urine Nitrite Ur Leukocyte Esterase Urine RBC Urine WBC Ur Squamous Epith Cells Urine Bacteria Hyaline Casts 04/30/25 04/30/25 02:05 02:20 MCV MCH MCHC RDW Plt Count MPV Immature Gran % (Auto) Neut % (Auto) Lymph % (Auto) [place] % (Auto) Eos % (Auto) Baso % (Auto) Lymph # (Auto) [place] # (Auto) Eos # (Auto) Baso # (Auto) Abs Immat Gran (auto) Absolute Neuts (auto) Absolute Nucleated RBC Nucleated RBC % (auto) VBG pH VBG pCO2 VBG pO2 VBG HCO3 VBG O2 Saturation VBG Base Excess Anion Gap 20 Estim Creat Clear Calc 29.4 Estimated GFR 41 POC Glucose 416 H* Random Glucose 451 H* Calcium 9.0 D Total Bilirubin AST ALT Alkaline Phosphatase Total Protein Albumin Lipase 102 H Beta-Hydroxybutyrate 0.76 H Urine Color Urine Appearance Urine pH Ur Specific [place] Urine Protein Urine Glucose (UA) Urine Ketones Urine Blood Urine Nitrite Ur Leukocyte Esterase Urine RBC Urine WBC Ur Squamous Epith Cells Urine Bacteria Hyaline Casts Assessment and Plan (1) Acute metabolic encephalopathy: Status: Acute (2) DKA (diabetic ketoacidosis): Status: Acute (3) TAYLOR (acute kidney injury): Status: Acute (4) SOB (shortness of breath): Status: Acute Plan Patient is an 89-year-old male has been history significant for type 2 diabetes, HFpEF, history TAVR, nocturnal hypoxemia, HTN, atrial flutter on Eliquis, and hypothyroid, who presented to the ED via EMS as the patient's son called because the patient was confused. Pt also reports fever the past few days and mild SOB. acute metabolic encephalopathy secondary to DKA, resolving - anion gap closed - lantus 10U now - SSI - diabetic diet - check A1C - hold metformin, glipizide SOB, viral vs PNA vs secondary to DKA - leukocytosis likely reactive - duonebs PRN - COVID/flu/RSV - CXR - BNP - monitor CBC and BMP TAYLOR - monitor creatinine - avoid nephrotoxins when possible Elevated lipase - no abdominal pain HFpEF, no acute exacerbation - does not appear fluid overloaded on exam - continue home meds HTN - continue home meds Atrial flutter - Eliquis Hypothyroid - levothyroxine Anemia, chronic, stable - monitor CBC Med rec pending Full code VTE prophylaxis: Eliquis Patient with DKA, improvement, anion gap closed, complicated by TAYLOR, requiring admission for at least 2 midnight stay for glucose control and monitoring. Quality Stroke Does the patient have a stroke diagnosis?: No VTE Prior VTE?: No VTE Risk Level:: Medical - moderate - high VTE Device Contraindication: Treatment Not Indicated VTE Drug Contraindication: N/A - Med Ordered
[2025-04-30] MEDS: Insulin Glargine,Hum.rec.anlog 100 UNIT/ML 10 ML VIAL 10 UNIT SUBCUT (04:29)
[2025-04-30 05:20] LABS: Hematocrit 38.3 % (42.0-52.0); Hemoglobin 13.6 g/dl (14.0-18.0); Mean Corpuscular HGB Conc 35.5 g/dl (31.0-36.0); Mean Corpuscular Hemoglobin 33.3 pg (27.0-33.0); Mean Corpuscular Volume 93.6 fL (80.0-98.0); NRBC Abs Auto 0.000 X10*3/uL (0.0-0.012); NRBC Pct Auto 0.0 /100WBC (0.0-0.2); Platelet Count 131 X10*3/uL (160-400); Red Blood Count 4.09 X10*6/uL (4.60-5.80); White Blood Count 11.4 X10*3/uL (4.8-10.8)
--- OUTSIDE RECORDS SUMMARY | 2025-04-30 05:24 | XMS_ITS | Patient Health Record ---
Author Organization Orestes Alex MD Address [address] [place], [place] [id number] Care Team Providers Care Airline Operations Agent Name Role Phone Orestes Alex Primary Care Provider [phone] Allergies No Known Allergies Results Component Value Reference Range Notes Hemoglobin A1c Reviewed date:12/04/2024 01:29:14 PM Interpretation: Performing Lab: Notes/Report: Hemoglobin A1c 7.5 Hemoglobin A1c Reviewed date:03/24/2025 02:15:58 PM Interpretation: Performing Lab: Notes/Report: Hemoglobin A1c 6.8 Complete Blood Count Auto Di ff Reviewed date:06/20/2024 05:40:23 PM Interpretation: Performing Lab:[facility], [address] [place] [address] Notes/Report: White Blood Count 7.8 4.8-10.8 X10*3/uL [...] NRBC Abs Auto 0.000 0.0-0.012 X10*3/uL Comprehensive [place]. Panel Fa st Reviewed date:06/27/2024 01:10:00 PM Interpretation:Z[place]AL[place] 06/27/24 Performing Lab:[facility], [address] [place] [address] Notes/Report: Sodium 142 135-145 mmol/L Potassium 4.3 [...] Panel Reviewed date:06/20/2024 05:16:22 PM Interpretation: Performing Lab:[facility], [address] [place] [address] Notes/Report: Triglycerides 117 <150 mg/dL Desirable Triglyceride: [...] (Free>4and<10) Reviewed date:06/20/2024 05:11:58 PM Interpretation: Performing Lab:[facility], [address] [place] [address] Notes/Report: PSA,Total (Free>4and<10) 0.38 0.00-4.00 ng/mL A [...] Random Reviewed date:06/20/2024 05:11:49 PM Interpretation: Performing Lab:[address] [address] Notes/Report: Creatinine Urine 93.86 Microalbumin Urine 107.0 Microalbum/Creatinine Ratio Ur 113.9 <30 ug/mg cr Albumin/Creatinine Ratio Reference Ranges: Normal: < 30 ug/mg creatinine Microalbuminuria: 30 - 300 ug/mg creatinine Clinical Albuminuria: > 300 ug/mg creatinine Hemoglobin A1c Reviewed date:06/20/2024 05:12:06 PM Interpretation: Performing Lab:[address] [address] Notes/Report: Hemoglobin A1c % 7.3 <6.0 % [...] average glucose, using the formula of the Q1R-Swrdrsb Average Glucose study (ADAG), Diabetes Care, Vol.31,#8, Jan. 2007 UA ClnCatch+Micro w/rflx Cul t Reviewed date:06/20/2024 05:38:57 PM Interpretation: Performing Lab:[address] [address] Notes/Report: Urine, Clean Catch Color Urine Yellow Appearance Urine Clear PH 5.5 5.0-9.0 Glucose Urine UA Negative Negative mg/dL Urine Blood Negative Negative Specific Mcgrady - Urine 1.020 1.005-1.025 Urine Protein Trace Neg-Trace mg/dL Urine Ketones Negative Negative mg/dL Nitrite Urine Negative Negative Leukocyte Esterase Urine Negative Negative RBC Urine 0-2 0-2 /HPF WBC Urine 0-5 0-5 /HPF Squamous Epithelial Cell Urine 0-2 0-2 /HPF Bacteria Urine None Seen None Seen Hyaline Casts Urine 0-2 0-2 /LPF Liver Panel Reviewed date:12/01/2024 05:23:44 PM Interpretation: Performing Lab:[facility], [address] [place] [address] Notes/Report: Bilirubin Total 0.9 0.0-1.0 mg/dL Bilirubin Direct 0.4 0.0-0.5 mg/dL Aspartate Amino Transferase 41 5-37 U/L Alanine Aminotransferase 23 0-40 U/L Total Protein 7.3 6.5-8.0 g/dL Albumin Level 3.9 3.5-5.0 g/dL Alkaline Phosphatase 195 39-117 U/L Lipid Panel with Reflex Reviewed date:12/02/2024 08:16:58 AM Interpretation: Performing Lab:[facility], [address] [place] [address] Notes/Report: Triglycerides 127 <150 mg/dL Desirable Triglyceride: [...] Panel Reviewed date:02/13/2025 11:34:17 AM Interpretation:02-13-2025 Performing Lab:[facility], [address] [place] [address] Notes/Report: Bilirubin Total 0.7 0.0-1.0 mg/dL Bilirubin Direct 0.4 0.0-0.5 mg/dL Aspartate Amino Transferase 87 5-37 U/L Alanine Aminotransferase 78 0-40 U/L Total Protein 6.6 6.5-8.0 g/dL Albumin Level 3.4 3.5-5.0 g/dL Alkaline Phosphatase 154 39-117 U/L Liver Panel Reviewed date:02/13/2025 12:45:26 PM Interpretation: Performing Lab:[facility], [address] [place] [address] Notes/Report: Bilirubin Total 0.9 0.0-1.0 mg/dL Bilirubin Direct 0.4 0.0-0.5 mg/dL Aspartate Amino Transferase 44 5-37 U/L Alanine Aminotransferase 26 0-40 U/L Total Protein 7.0 6.5-8.0 g/dL Albumin Level 3.9 3.5-5.0 g/dL Alkaline Phosphatase 126 39-117 U/L Glucose, finger stick Reviewed date:08/25/2024 01:00:35 PM Interpretation: Performing Lab: Notes/Report: Value 128 Glucose, finger stick Reviewed date:12/04/2024 01:06:36 PM Interpretation: Performing Lab: Notes/Report: Value 241 Glucose, finger stick Reviewed date:01/09/2025 11:50:54 AM Interpretation: Performing Lab: Notes/Report: Value 149 Glucose, finger stick Reviewed date:01/20/2025 01:54:11 PM Interpretation: Performing Lab: Notes/Report: Value 120 Glucose, finger stick Reviewed date:03/24/2025 02:11:21 PM Interpretation: Performing Lab: Notes/Report: Value 63 XR chest 2V Reviewed date:10/29/2024 03:54:47 PM Interpretation: Performing Lab: Notes/Report: [address] [address] XRay Report Signed Patient: Delia Chávez MR#: [id number] : 1935 Acct:[id number] Age/Sex: 89 / M ADM Date: 10/28/24 Loc: HOLEILA Attending Dr: Cm Rivas NP Ordering Physician: Cm Rivas NP Date of Service: 10/28/24 Procedure(s): XR chest 2V Accession Number(s): [id number] cc: Orestes Alex MD; Cm Rivas NP [...] 10/28/24 1550 DD/ 1536 TD/TT: 10/28/24 1542 Owner Oral Surgeon: [place] [address] XRay Report Signed Patient: Delia Chávez MR#: [id number] : 1935 Acct:[id number] Age/Sex: 89 / M ADM Date: 10/28/24 Loc: DYLAN Attending Dr: Cm Rivas NP Ordering Physician: Cm Rivas NP Date of Service: 10/28/24 Procedure(s): XR [facility] [facility] 2V Accession Number(s): [id number] cc: Orestes Alex MD; Cm Rivas NP [...] 10/28/24 1550 DD/ 1536 TD/TT: 10/28/24 1542 Owner Oral Surgeon: Aubree Morales Reviewed date:12/01/2024 12:26:31 PM Interpretation: Performing Lab:[facility], [address] [place] [address] Notes/Report: Aubree Morales See Note Specimen held untested for 24 hours; Call to request Chemistry testing. Complete Blood Count Auto Di ff Reviewed date:12/24/2024 03:54:40 PM Interpretation: Performing Lab:[facility], [address] [place] [address] Notes/Report: White Blood Count 13.8 4.8-10.8 X10*3/uL [...] INR Reviewed date:12/25/2024 12:13:33 PM Interpretation: Performing Lab:[address] [address] Notes/Report: Prothrombin Time 16.4 10.9-12.4 SEC [employer]NATIONAL [...] Time Reviewed date:12/25/2024 12:56:06 PM Interpretation: Performing Lab:[address] [address] Notes/Report: Partial Thromboplastin Time 37.1 26.0-36.8 SEC For information regarding the monitoring of direct thrombin inhibitors, please refer to Pharmacy. Comprehensive Met. Panel Reviewed date:12/24/2024 04:05:16 PM Interpretation: Performing Lab:[address] [address] Notes/Report: Sodium 132 135-145 mmol/L Potassium 4.2 [...] Acid Reviewed date:12/25/2024 12:13:13 PM Interpretation: Performing Lab:[address] [address] Notes/Report: Lactic Acid 3.1 0.5-2.0 mmol/L Critical value for test(s): LACTA Results called to and read back by: SHUN Chase calling: ANA Date: 12.24.24 Time: 1919 Magnesium Reviewed date:12/24/2024 03:54:51 PM Interpretation: Performing Lab:[address] [address] Notes/Report: Magnesium 1.6 1.6-2.6 mg/dL Troponin-I High Sensitivity Reviewed date:12/24/2024 04:02:15 PM Interpretation: Performing Lab:[facility], [address] [place] [address] Notes/Report: Troponin-I High Sensitivity 78.5 <3.5-35.0 ng/L The Joseph high sensitivity Troponin-I results should be used in conjunction with other diagnostic information such as ECG, clinical observations and information, and patient symptoms to aid in the diagnosis of NC. B Type Natriuretic Peptide Reviewed date:12/24/2024 04:01:59 PM Interpretation: Performing Lab:[place] [address] [address] Notes/Report: B Type Natriuretic Peptide 227 <100 pg/mL SARS-CoV2/FLU/RSV Reviewed date:12/25/2024 12:13:46 PM Interpretation: Performing Lab:[address] [address] Notes/Report: Influenza A PCR NEGATIVE Negative Influenza [...] by authorized laboratories. Testing performed on the eCardio GeneXpert utilizing real-time RT-PCR. All SARS CoV2 and positive influenza A/B results are reported to [facility]. Blood Culture (First) Reviewed date:12/30/2024 12:35:51 PM Interpretation: Performing Lab:[address] [address] Notes/Report: Blood Culture (First) No growth after 5 days. Blood Culture (Second) Reviewed date:12/30/2024 12:38:40 PM Interpretation: Performing Lab:[address] [address] Notes/Report: Blood Culture (Second) No growth after 5 days. Lactic Acid-LAB USE ONLY Reviewed date:12/25/2024 12:11:17 PM Interpretation: Performing Lab:[address] [address] Notes/Report: Lactic Acid-LAB USE ONLY 2.2 0.5-2.0 mmol/L Critical value for test(s): LACTA Results called to and read back by: OMARWYen Person calling: ANA Date: 12.24.24 Time: 2246 Venous Blood Gases - POC Reviewed date:12/24/2024 03:41:59 PM Interpretation: Performing Lab:[facility], [address] [place] [address] Notes/Report: VBG pH 7.36 7.32-7.43 METER #: [id number] additional_comment: Cb rojascr VBG pCO2 46 METER #: [id number] additional_comment: Cb rojascr VBG pO2 34 METER #: [id number] additional_comment: Cb rojascr VBG Base Excess 1.2 METER #: [id number] additional_comment: Cb rojascr VBG HCO3 26 22-26 mmol/L METER #: [id number] additional_comment: Cb rojascr VBG O2 % Saturation 41.0 METER #: [id number] additional_comment: Cb rojascr D Dimer High Sensitivity Reviewed date:12/25/2024 12:13:21 PM Interpretation: Performing Lab:[facility], [address] [place] [address] Notes/Report: D Dimer High Sensitivity 469 D-DIMER [...] date:12/25/2024 12:14:35 PM Interpretation: Performing Lab: Notes/Report: [address] [address] [address] Scan Report Signed Patient: Delia Chávez MR#: [id number] : 1935 Acct:[id number] Age/Sex: 89 / M ADM Date: 12/24/24 Loc: HO.ED Attending Dr: Ordering Physician: Raul Chery MD Date of Service: 12/24/24 Procedure(s): CT chest wo IV con Accession Number(s): [id number] cc: Orestes Alex MD; Raul Chery MD Report Number: [id number]: Total DLP = 291.00 mGy-cm CLINICAL HISTORY: Left lung mass? CT chest without contrast Comparison: CR/SR - XR CHEST 1 VIEW - 12/24/24 15:46 EDT CR/UT/SR - XR CHEST 2V - 10/28/24 15:46 [...] in OV> 12/24/242127 DD/ 25 TD/TT: 12/24/242125 Owner Oral Surgeon: [place] [address] CT Scan Report Signed Patient: Delia Chávez MR#: [id number] : 1935 Acct:[id number] Age/Sex: 89 / M ADM Date: 12/24/24 Loc: .ED Attending Dr: Ordering Physician: Raul Chery MD Date of Service: 12/24/24 Procedure(s): CT [facility] [facility] wo IV con Accession Number(s): [id number] cc: Orestes Alex MD; Raul Chery MD Report Number: [id number]: Total DLP = 291.00 mGy-cm CLINICAL HISTORY: Le ft lung mass? CT chest without contrast Comparison: CR/SR - XR CHEST 1 VIEW - 12/24/24 15:46 EDT CR/UT/SR - XR CHEST 2V - 10/28/24 15:46 [...] in OV> 12/24/242127 DD/ 25 TD/TT: 12/24/242125 Owner Oral Surgeon: XR chest 1V Reviewed date:12/24/2024 04:10:13 PM Interpretation: Performing Lab: Notes/Report: [address] [address] XRay Report Signed Patient: Delia Chávez MR#: [id number] : 1935 Acct:[id number] Age/Sex: 89 / M ADM Date: 12/24/24 Loc: HO.ED Attending Dr: Ordering Physician: Generic ED Physician Date of Service: 12/24/24 Procedure(s): XR chest 1V Accession Number(s): [id number] cc: Orestes Alex MD; Generic ED Physician [...] 12/24/24 1550 DD/ 1446 TD/TT: 12/24/24 1544 Owner Oral Surgeon: [address] [address] XRay Report Signed Patient: Delia Chávez MR#: [id number] : 1935 Acct:[id number] Age/Sex: 89 / M ADM Date: 12/24/24 Loc: .ED Attending Dr: Ordering Physician: Generic ED Physician Date of Service: 12/24/24 Procedure(s): XR [facility] [facility] 1V Accession Number(s): [id number] cc: Orestes Alex MD; Generic ED Physician [...] 12/24/24 1550 DD/ 1446 TD/TT: 12/24/24 1544 Owner Oral Surgeon: Complete Blood Count Auto Di ff Reviewed date:12/25/2024 05:07:41 PM Interpretation: Performing Lab:[facility], [address] [place] [address] Notes/Report: White Blood Count 13.0 4.8-10.8 X10*3/uL [...] Panel Reviewed date:12/25/2024 12:53:03 PM Interpretation: Performing Lab:[facility], [address] [place] [address] Notes/Report: Sodium 135 135-145 mmol/L Potassium 3.8 [...] Sensitivity Reviewed date:12/25/2024 05:06:12 PM Interpretation: Performing Lab:[address] [address] Notes/Report: Troponin-I High Sensitivity 43.7 <3.5-35.0 ng/L The Joseph high sensitivity Troponin-I results should be used in conjunction with other diagnostic information such as ECG, clinical observations and information, and patient symptoms to aid in the diagnosis of NC. Glucose, Whole Blood Reviewed date:12/25/2024 12:10:35 PM Interpretation: Performing Lab:[facility], [address] [place] [address] Notes/Report: Glucose, Whole Blood 201 60-115 mg/dL METER # : [id number] Lactic Acid-LAB USE ONLY Reviewed date:12/25/2024 12:10:52 PM Interpretation: Performing Lab:[facility], [address] [place] [address] Notes/Report: Lactic Acid-LAB USE ONLY 3.8 0.5-2.0 mmol/L Critical LACTIC ACID sent by a secure message and confirmed by KARLOS/GUILHERME 12/25/24 0131 Tech:VERA Glucose, Whole Blood Reviewed date:12/25/2024 05:04:54 PM Interpretation: Performing Lab:[facility], [address] [place] [address] Notes/Report: Glucose, Whole Blood 189 60-115 mg/dL METER # : [id number] Glucose, Whole Blood Reviewed date:12/25/2024 05:05:38 PM Interpretation: Performing Lab:[facility], [address] [place] [address] Notes/Report: Glucose, Whole Blood 161 60-115 mg/dL METER # : [id number] Glucose, Whole Blood Reviewed date:12/26/2024 04:12:43 PM Interpretation: Performing Lab:[facility], [address] [place] [address] Notes/Report: Glucose, Whole Blood 167 60-115 mg/dL METER # : [id number] Complete Blood Count Auto Di ff Reviewed date:12/26/2024 03:08:03 PM Interpretation: Performing Lab:[facility], [address] [place] [address] Notes/Report: White Blood Count 10.9 4.8-10.8 X10*3/uL [...] Panel Reviewed date:12/26/2024 03:07:56 PM Interpretation: Performing Lab:[facility], [address] [place] [address] Notes/Report: Sodium 137 135-145 mmol/L Potassium 3.7 [...] Blood Reviewed date:12/26/2024 03:07:47 PM Interpretation: Performing Lab:[facility], [address] [place] [address] Notes/Report: Glucose, Whole Blood 163 60-115 mg/dL METER # : [id number] Glucose, Whole Blood Reviewed date:12/26/2024 12:31:38 PM Interpretation: Performing Lab:[facility], [address] [place] [address] Notes/Report: Glucose, Whole Blood 214 60-115 mg/dL METER # : [id number] Glucose, Whole Blood Reviewed date:12/26/2024 04:16:50 PM Interpretation: Performing Lab:[facility], [address] [place] [address] Notes/Report: Glucose, Whole Blood 162 60-115 mg/dL METER # : [id number] Glucose, Whole Blood Reviewed date:12/27/2024 05:26:03 PM Interpretation: Performing Lab:[facility], [address] [place] [address] Notes/Report: Glucose, Whole Blood 147 60-115 mg/dL METER # : [id number] Complete Blood Count Auto Di ff Reviewed date:12/27/2024 05:41:08 PM Interpretation: Performing Lab:[facility], [address] [place] [address] Notes/Report: White Blood Count 11.4 4.8-10.8 X10*3/uL [...] Panel Reviewed date:12/27/2024 05:38:02 PM Interpretation: Performing Lab:[facility], [address] [place] [address] Notes/Report: Sodium 139 135-145 mmol/L Potassium 3.7 [...] Blood Reviewed date:12/27/2024 05:32:13 PM Interpretation: Performing Lab:[facility], [address] [place] [address] Notes/Report: Glucose, Whole Blood 161 60-115 mg/dL METER # : [id number] Aubree Morales Reviewed date:12/27/2024 05:27:08 PM Interpretation: Performing Lab:[facility], [address] [place] [address] Notes/Report: Aubree Morales See Note Specimen held untested for 24 hours; Call to request Chemistry testing. Glucose, Whole Blood Reviewed date:12/27/2024 04:51:49 PM Interpretation: Performing Lab:[facility], [address] [place] [address] Notes/Report: Glucose, Whole Blood 265 60-115 mg/dL METER # : [id number] XR chest 2V Reviewed date:01/09/2025 01:45:09 PM Interpretation: Performing Lab: Notes/Report: [address] [address] XRay Report Signed Patient: Delia Chávez MR#: [id number] : 1935 Acct:[id number] Age/Sex: 89 / M ADM Date: 01/09/25 Loc: DYLAN Attending Dr: Orestes Alex MD Ordering Physician: Orestes Alex MD Date of Service: 01/09/25 Procedure(s): XR chest 2V Accession Number(s): [id number] cc: Orestes Alex MD EXAMINATION: XR CHEST [...] 01/09/25 1256 DD/ 1222 TD/TT: 01/09/25 1230 Owner Oral Surgeon: [address] [address] XRay Report Signed Patient: Delia Cáhvez MR#: [id number] : 1935 Acct:[id number] Age/Sex: 89 / M ADM Date: 01/09/25 Loc: DYLAN Attending Dr: Orestes Alex MD Ordering Physician: Orestes Alex MD Date of Service: 01/09/25 Procedure(s): XR [address] 2V Accession Number(s): [id number] cc: Orestes Alex MD EXAMINATION: XR CHEST [...] 01/09/25 1256 DD/ 1222 TD/TT: 01/09/25 1230 Owner Oral Surgeon: XR chest 2V Reviewed date:02/17/2025 01:06:15 PM Interpretation: Performing Lab: Notes/Report: [address] [address] XRay Report Signed Patient: Delia Chávez MR#: [id number] : 1935 Acct:[id number] Age/Sex: 89 / M ADM Date: 02/17/25 Loc: HO.XRAY Attending Dr: Orestes Alex MD Ordering Physician: Orestes Alex MD Date of Service: 02/17/25 Procedure(s): XR chest 2V Accession Number(s): [id number] cc: Orestes Alex MD Reason for Exam: [...] 02/17/25 1210 DD/ 1140 TD/TT: 02/17/25 1143 Owner Oral Surgeon: [place] [address] XRay Report Signed Patient: Delia Chávez MR#: [id number] : 1935 Acct:[id number] Age/Sex: 89 / M ADM Date: 02/17/25 Loc: DYLAN Attending Dr: Orestes Alex MD Ordering Physician: Orestes Alex MD Date of Service: 02/17/25 Procedure(s): XR [facility] 2V Accession Number(s): [id number] cc: Orestes Alex MD Reason for Exam: [...] 02/17/25 1210 DD/ 1140 TD/TT: 02/17/25 1143 Owner Oral Surgeon: CT chest wo con Reviewed date:03/05/2025 12:38:08 PM Interpretation: Performing Lab: Notes/Report: [address] [address] [address] Scan Report Signed Patient: Delia Chávez MR#: [id number] : 1935 Acct:[id number] Age/Sex: 89 / M ADM Date: 03/04/25 Loc: HO.CT Attending Dr: Kerline Ceja CONSTRUCTION COORDINATOR Ordering Physician: Kerline Ceja NP Date of Service: 03/04/25 Procedure(s): CT chest wo IV con Accession Number(s): [id number] cc: Orestes Alex MD; Kerline Ceja NP Report Number: [id number]: Total DLP = 123.00 mGy-cm Reason for Exam: Z87.01 - Personal history of pneumonia (recurrent) EXAMINATION: CT CHEST WITHOUT CONTRAST CLINICAL INFORMATION: Z87. - Personal history of pneumonia (recurrent) COMPARISON: [...] 03/04/25 1637 DD/ 1510 TD/TT: 03/04/25 1542 Owner Oral Surgeon: [address] [address] [address] Scan Report Signed Patient: Delia Chávez MR#: [id number] : 1935 Acct:[id number] Age/Sex: 89 / M ADM Date: 03/04/25 Loc: HO.CT Attending Dr: Yuliya Ceja NP Ordering Physician: Kerline Ceja NP Date of Service: 03/04/25 Procedure(s): CT [facility] wo IV con Accession Number(s): [id number] cc: Orestes Alex MD; Kerline Ceja NP Report Number: [id number]: Total DLP = 123.00 mGy-cm Reason for Exam: Z87 . - Personal history of pneumonia (recurrent) EXAMINATION: CT CHEST WITHOUT CONTRAST CLINICAL INFORMATION: Z. - Personal history of pneumonia (recurrent) COMPARISON: [...] Alireza Rose MD 03/04/2025 04:37 PM EDT Dictated By: Alireza Rose MD Signed By: <Electronically signed by Alireza Rose MD in OV> 03/04/25 1637 DD/ 1510 TD/TT: 03/04/25 1542 Owner Oral Surgeon: XR chest 2V Reviewed date:03/30/2025 02:33:55 PM Interpretation:03-24-2025 Performing Lab: Notes/Report: [address] [address] XRay Report Signed Patient: Delia Chávez MR#: [id number] : 1935 Acct:[id number] Age/Sex: 89 / M ADM Date: 03/10/25 Loc: DYLAN Attending Dr: Orestes Alex MD Ordering Physician: Orestes Alex MD Date of Service: 03/10/25 Procedure(s): XR chest 2V Accession Number(s): [id number] cc: Orestes Alex MD Reason for Exam: [...] 03/10/25 1648 DD/ 1636 TD/TT: 03/10/25 1639 Owner Oral Surgeon: [place] [address] XRay Report Signed Patient: Delia Chávez MR#: [id number] : 1935 Acct:[id number] Age/Sex: 89 / M ADM Date: 03/10/25 Loc: HO.XRAY Attending Dr: Orestes Alex MD Ordering Physician: Orestes Alex MD Date of Service: 03/10/25 Procedure(s): XR [facility] [facility] 2V Accession Number(s): [id number] cc: Orestes Alex MD Reason for Exam: [...] Tirso Garcia MD 03/10/2025 04:48 PM EDT Dictated By: Tirso Garcia MD Signed By: <Electronically signed by Tirso Garcia MD in OV> 03/10/25 1648 DD/ 1636 TD/TT: 03/10/25 1639 Owner Oral Surgeon: Complete Blood Count no Diff Reviewed date:03/18/2025 04:19:01 PM Interpretation: Performing Lab:[facility], [address] [place] [address] Notes/Report: White Blood Count 10.9 4.8-10.8 X10*3/uL Red Blood Count 4.13 4.60-5.80 X10*6/uL Hemoglobin 13.7 14.0-18.0 g/dl Hematocrit 42.3 42.0-52.0 % Mean Corpuscular Volume 102.4 80.0-98.0 fL Mean Corpuscular Hemoglobin 33.2 27.0-33.0 pg Mean Corpuscular HGB Conc 32.4 31.0-36.0 g/dl Red Cell Distribution Width 15.3 11.0-16.0 % Platelet Count 177 160-400 X10*3/uL Mean Platelet Volume 10.3 9.4-12.4 fL NRBC Pct Auto 0.0 0.0-0.2 /100WBC NRBC Abs Auto 0.000 0.0-0.012 X10*3/uL Basic Metabolic Panel Reviewed date:03/18/2025 04:15:28 PM Interpretation: Performing Lab:[facility], [address] [place] [address] Notes/Report: Sodium 141 135-145 mmol/L Potassium 4.1 3.3-5.1 mmol/L Chloride 102 96-108 mmol/L Carbon Dioxide 29 22-29 mmol/L Anion Gap 14 12-20 Blood Urea Nitrogen 36 9-16 mg/dL Creatinine 1.32 0.5-1.4 mg/dL Estimated Glomerular Filt Rate 51 Chronic Kidney Disease: Estimated GFR < 60 mL/min/1.73m2 Severe Kidney Disease: Estimated GFR < 15 mL/min/1.73m2 Glucose Random 178 60-115 mg/dL Calcium 10.2 8.4-10.2 mg/dL NT Pro B Type Natriuretic Pe pt Reviewed date:03/18/2025 04:15:09 PM Interpretation: Performing Lab:[facility], [address] [place] [id number] Notes/Report: NT Pro B Type Natriuretic Pept 2580.1 <300 pg/mL Reference Range: Age Group (years) NT-proBNP (pg/ml) Interpretation All <300 Negative: HF unlikely For patients presenting to the ED with clinical suspicion of new onset or worsening HF, see below: 18 to <50 >299.9 to <450.0 Grayzone: Consider 50 to 75 >299.9 to <900.0 other causes of >75 >299.9 to <1800.0 NT-proBNP elevation 18 to <50 >449.9 Positive: HF likely 50-75 >899.9 >75 >1799.9 Note: Elevated NT-proBNP levels should be interpreted in the context of other clinical information. XR chest 2V Reviewed date:03/24/2025 04:52:17 PM Interpretation: Performing Lab: Notes/Report: [address] [address] XRay Report Signed Patient: Delia Chávez MR#: [id number] : 1935 Acct:[id number] Age/Sex: 89 / M ADM Date: 03/24/25 Loc: [facility] Attending Dr: Kerline Ceja NP Ordering Physician: Kerline Ceja NP Date of Service: 03/24/25 Procedure(s): XR chest 2V Accession Number(s): [id number] cc: Orestes Alex MD; Kerline Ceja NP Reason for Exam: Z87. - Personal history of pneumonia (recurrent) EXAMINATION: XR CHEST 2 VIEWS HISTORY: Z. - Personal history of pneumonia (recurrent) COMPARISON: Comparison is made with the prior examination dated 03/10/2025. FINDINGS: PA and lateral views of the chest are submitted. Again seen is extensive scarring and increased interstitial markings. Patchy opacity in the right middle and lower lung zones is again noted and may represent pneumonia. There is no pleural effusion, pneumothorax, or pulmonary vascular congestion. The heart is normal in size. 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 XR/XR chest 2V IMPRESSION: Extensive scarring and increased interstitial markings. Probable right middle/lower lobe pneumonia. Continued follow-up is recommended to document resolution. Electronically signed by: Mario Moore MD 03/24/2025 03:14 PM EDT Dictated By: Mario Moore MD Signed By: <Electronically signed by Mario Moore MD in OV> 03/24/25 1514 DD/ 1456 TD/TT: 03/24/25 1504 Owner Oral Surgeon: [place] [address] XRay Report Signed Patient: Delia Chávez MR#: [id number] : 1935 Acct:[id number] Age/Sex: 89 / M ADM Date: 03/24/25 Loc: [facility] Attending Dr: Yuliya Ceja NP Ordering Physician: Kerline Ceja NP Date of Service: 03/24/25 Procedure(s): XR [facility] st 2V Accession Number(s): [id number] cc: Orestes Alex MD; Kerline Ceja NP Reason for Exam: Z87 . - Personal history of pneumonia (recurrent) EXAMINATION: XR CHES T 2 VIEWS HISTORY: Z. - Personal history of pneumonia (recurrent) COMPARISON: Comparis on is made with the prior examination dated 03/10/2025. FINDINGS: PA and lat eral views of the chest are submitted. Again seen is extensive scarrin g and increased interstitial markings. Patchy opacity in the right middle and lower lung zones is again noted and may represent pneumonia. There is no pleural effusion, pneumothorax, or pulmonary vascular congestion. The heart is normal in size. 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 X R/XR chest 2V IMPRESSION: Extensive scarring a nd increased interstitial markings. Probable right middle/lower lobe pneumonia. Continued follow-up is recommended to document resolution. Electronically alex d by: Mario Moore MD 03/24/2025 03:14 PM EDT RP Dictated By: Mario Moore MD Signed By: <Electronically signed by Mario Moore MD in OV> 03/24/25 1514 DD/ 1456 TD/TT: 03/24/25 1504 Owner Oral Surgeon: Glucose, Whole Blood (Not ye t reviewed by provider) Interpretation: Performing Lab:[facility], [address] [place] [phone] Notes/Report: Glucose, Whole Blood > 600 60-115 mg/dL METER # : [id number] Venous Blood Gases - POC (No t yet reviewed by provider) Interpretation: Performing Lab:[facility], [address] [place] [phone] Notes/Report: VBG pH 7.39 7.32-7.43 METER #: [id number] additional_comment: Dank watson VBG pCO2 24 METER #: [id number] additional_comment: Cb shaani VBG pO2 51 METER #: [id number] additional_comment: Cb shaani VBG Base Excess -7.8 METER #: [id number] additional_comment: Cb shaani VBG HCO3 15 22-26 mmol/L METER #: [id number] additional_comment: Cb shaani VBG O2 % Saturation 77.0 METER #: [id number] additional_comment: Dank watson Glucose, Whole Blood (Not ye t reviewed by provider) Interpretation: Performing Lab:[address] [phone] Notes/Report: Glucose, Whole Blood > 600 60-115 mg/dL METER # : [id number] Glucose, Whole Blood (Not ye t reviewed by provider) Interpretation: Performing Lab:[address] [address] Notes/Report: Glucose, Whole Blood > 600 60-115 mg/dL METER # : [id number] Glucose, Whole Blood (Not ye t reviewed by provider) Interpretation: Performing Lab:[address] [address] Notes/Report: Glucose, Whole Blood > 600 60-115 mg/dL METER # : [id number] Glucose, Whole Blood (Not ye t reviewed by provider) Interpretation: Performing Lab:[address] [address] Notes/Report: Glucose, Whole Blood 577 60-115 mg/dL METER # : [id number] Complete Blood Count no Diff (Not yet reviewed by provider) Interpretation: Performing Lab:[address] [address] Notes/Report: White Blood Count 11.4 4.8-10.8 X10*3/uL Red Blood Count 4.09 4.60-5.80 X10*6/uL Hemoglobin 13.6 14.0-18.0 g/dl Hematocrit 38.3 42.0-52.0 % Mean Corpuscular Volume 93.6 80.0-98.0 fL Mean Corpuscular Hemoglobin 33.3 27.0-33.0 pg Mean Corpuscular HGB Conc 35.5 31.0-36.0 g/dl Red Cell Distribution Width 13.2 11.0-16.0 % Platelet Count 131 160-400 X10*3/uL Mean Platelet Volume 11.0 9.4-12.4 fL NRBC Pct Auto 0.0 0.0-0.2 /100WBC NRBC Abs Auto 0.000 0.0-0.012 X10*3/uL Basic Metabolic Panel (Not y et reviewed by provider) Interpretation: Performing Lab:[address] [address] Notes/Report: Sodium 134 135-145 mmol/L Potassium 3.7 3.3-5.1 mmol/L Chloride 100 96-108 mmol/L Carbon Dioxide 18 22-29 mmol/L Anion Gap 20 12-20 Blood Urea Nitrogen 48 9-16 mg/dL Creatinine 1.59 0.5-1.4 mg/dL Creatinine Clr Calc Pharmacy 29.4 eGFR (calculated from the MDRD study equation) and eCrCl (calculated from the Cockcroft-Gault equation) are based on different parameters and may not yield comparable results. If eCrCl result is absurd, please check patient's height/weight. Estimated Glomerular Filt Rate 41 Chronic Kidney Disease: Estimated GFR < 60 mL/min/1.73m2 Severe Kidney Disease: Estimated GFR < 15 mL/min/1.73m2 Glucose Random 451 60-115 mg/dL Critical value for test(s): GLUCR Results called to and read back by: CAMILLA Person calling:VYASRID Date:[id number] Time:253 Calcium 9.0 8.4-10.2 mg/dL Lipase (Not yet reviewed by provider) Interpretation: Performing Lab:[address] [address] Notes/Report: Lipase 102 8-78 U/L Glucose, Whole Blood (Not y et reviewed by provider) Interpretation: Performing Lab:[facility], [address] [place] [phone] Notes/Report: Glucose, Whole Blood 415 60-115 mg/dL METER # : [id number] Beta-Hydroxybutyrate (Not ye t reviewed by provider) Interpretation: Performing Lab:[address] [address] Notes/Report: Beta-Hydroxybutyrate 0.76 0.02-0.27 mmol/L NT Pro B Type Natriuretic Pe pt (Not yet reviewed by provider) Interpretation: Performing Lab:[address] [address] Notes/Report: NT Pro B Type Natriuretic Pept 2163.1 <300 pg/mL Reference Range: Age Group (years) NT-proBNP (pg/ml) Interpretation All <300 Negative: HF unlikely For patients presenting to the ED with clinical suspicion of new onset or worsening HF, see below: 18 to <50 >299.9 to <450.0 Grayzone: Consider 50 to 75 >299.9 to <900.0 other causes of >75 >299.9 to <1800.0 NT-proBNP elevation 18 to <50 >449.9 Positive: HF likely 50-75 >899.9 >75 >1799.9 Note: Elevated NT-proBNP levels should be interpreted in the context of other clinical information. Glucose, Whole Blood (Not y et reviewed by provider) Interpretation: Performing Lab:[facility], [address] [place] [address] Notes/Report: Glucose, Whole Blood 416 60-115 mg/dL METER # : [id number] Reason For Referral No Information Medications Medication SIG (Take, Route, Frequency, Duration) Notes Start Date End Date Status Dilt-XR 180 MG TAKE 1 CAPSULE BY MO UTH EVERY DAY for 30 Active Accu-Chek Suzanne Plus 0 DIRECTED DAILY IN VITRO 90 Active FreeStyle Lite Test - USE TO TEST BLOOD SUGAR FOUR TIMES DAILY for 100 Active SITagliptin 50 MG 1tablets Orally Once a day Active metFORMIN HCl 500 MG TAKE 2 TABLETS TWIC E A DAY WITH MEALS for 90 Active Furosemide 40 MG TAKE 1 TABLET BY ETELVINA TH EVERY DAY Active Levothyroxine Sodium 125 MCG TAKE 1 TABLET EVERY MORNINGON AN EMPTY STOMACH Active Atorvastatin Calcium 80 MG TAKE 1 TABLET ONCE DAILY Active FreeStyle Lancets - USE TO TEST BLOOD SAINZ GAR FOUR TIMES DAILY for 90 Active Amoxicillin 500 MG TAKE 4 CAPSULES BY M OUTH 1 HOUR BEFORE DENTAL APPOINTMENT FOR 1 DAY for 1 Active FeroSul 325 (65 Fe) MG TAKE 1 TABLET BY MOUTH EVERY DAY Orally for 90 days Active Tamsulosin HCl 0.4 MG TAKE 1 CAPSULE ONC E DAILY DIRECTED for 90 Active Metoprolol Succinate ER 25 MG 1 tablet Orally Once a day Active Eliquis 5 MG TAKE 1 TABLET TWICE A DAY Active Immunizations Vaccine Route Administration Date [...] Shingrix IM Intramuscular 12/06/2017 Administered [facility] Kory Rosario Fluarix Quadrivalent IM [...] W/U Status Risk Notes Problem Atrial fibrillation (75444820) Atrial fibrillation (I48.91) Active confirmed Problem 911186132 Thrombocytopenia (D69.6) Active confirmed Problem 67623224 Lymphocytosis (D72.820) Active confirmed Problem 67958860 Prostatism (N40.0) Active confirmed Problem Insomnia (216487856) Insomnia (G47.00) Active confirmed Problem Congestive heart failure (03933744) CHF (congestive heart failure) (I50.9) Active confirmed Problem 11975235 Hypercalcemia (E83.52) Active confirme d Problem 7259501 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 Problem 51590444 Essential hypert ension (I10) Active confirmed Problem 722028117 Acquired hypothyroidism (E03.9) Active confirmed Problem 83400378 Type 2 diabetes mellitus without complication (E11.9) Active confirmed Problem 657923998 Hypoglycemia (E16.2) Active confirmed Problem 26774999 Iron deficiency anemia, unspecified iron deficiency anemia type (D50.9) Active confirmed Problem 321686721 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 Problem Aortic valve disorder (3329451) Severe aortic stenosis (I35.0) Active confirmed Problem 588129308 Rising PSA level (R97.20) Active confirmed Problem 302103193 Pure hypercholesterolemia (E78.00) Active confirmed Problem 001984874 Imbalance (R26.89) Active confirmed Problem 787545831 Frequent falls (R29.6) Active confirm ed Problem History of heart valve repair with prosthesis (65844638330243 8) H/O aortic valve replacement (Z95.2) Active confirmed Problem 53990449 Aneurysm artery, 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 Vital Signs Blood pressure diastolic 58 mm Hg 03/24/2025 howard ght is down 5 pounds since 01-20-25 Height 67 in 03/24/2025 weight is down 5 pounds since 01-20-25 Blood pressure systolic 92 mm Hg 03/24/2025 weig ht is down 5 pounds since 01-20-25 Weight 155 lbs 03/24/2025 weight is down 5 pounds since 01-20-25 BMI 24.27 kg/m2 03/24/2025 weight is down 5 pounds since 01-20-25 Encounters Encounter Location Date Provider Diagnosis Orestes Alex MD [address] [place], [place] [id number] 06/20/2024 Orestes Alex Acquired hypothyroid ism E03.9 ; Type 2 diabetes mellitus without complication E11.9 ; Prostatism N40.0 ; Essential hypertension I10 ; Pure hypercholesterolemia E78.00 and Lymphocytosis D72.820 Orestes Alex MD [address] [place] [id number] 07/24/2024 Orestes Alex Elevated BUN R79.9 Orestes Alex MD [address] [place] [id number] 12/01/2024 Orestes Alex Pure hypercholestero lemia E78.00 Orestes Alex MD [address] [place] [id number] 01/09/2025 Orestes Alex Elevated LFTs R79.89 Orestes Alex MD [address] [place] [id number] 02/13/2025 Orestes Alex Elevated liver enzym es R74.8 and Encounter for administration of vaccine Z23 Orestes Alex MD [address] [place] [id number] 06/27/2024 Orestes Alex Elevated BUN R79.9 ; Type 2 diabetes mellitus without complication E11.9 ; Essential hypertension I10 ; Prostatism N40.0 ; Pure hypercholesterolemia E78.00 ; Colon cancer screening Z12.11 ; Depression screening Z13.31 and Atrial fibrillation I48.91 Orestes Alex MD [address] [place] [id number] 08/25/2024 Orestes Alex Type 2 diabetes monroe itus without complication E11.9 and Insomnia G47.00 Orestes Alex MD [address] [place] [id number] 12/04/2024 Orestes Alex Type 2 diabetes monroe itus without complication E11.9 ; Acquired hypothyroidism E03.9 ; Atrial fibrillation I48.91 ; Pure hypercholesterolemia E78.00 and Essential hypertension I10 Orestes Alex MD [address] [place] [id number] 01/09/2025 Orestes Alex Type 2 diabetes monroe itus without complication E11.9 ; CHF (congestive heart failure) I50.9 and Lung mass R91.8 Orestes Alex MD [address] [place] [id number] 01/20/2025 Orestes Alex Type 2 diabetes monroe itus without complication E11.9 and Pneumonia J18.9 Orestes Alex MD [address] [place] [id number] 03/24/2025 Orestes Alex Type 2 diabetes monroe itus without complication E11.9 and CHF (congestive heart failure) I50.9 Orestes Alex MD [address] [place] [id number] 10/02/2024 Orestes Alex MD [address] [place] [id number] 12/25/2024 Orestes Alex Pneumonia J18.9 Orestes Alex MD [address] [place] [id number] 12/31/2024 Orestes Alex MD [address] [place] [address] [id number] 02/02/2025 Orestes Alex MD [address] [place] [id number] 02/17/2025 Orestes Alex Pneumonia J18.9 Orestes Alex MD [address] [place] [id number] 03/05/2025 Orestes Alex MD [address] [place] [id number] 03/05/2025 Orestes Alex Assessments Encounter Date Diagnosis (ICD Code) Assessment Notes Treatment Notes Treatment Clinical Notes Section Notes 06/20/2024 Acquired hypothyroid ism (ICD-10 - E03.9) 06/20/2024 Type 2 diabetes mellitus without complication (ICD-10 - E11.9) 07/24/2024 Elevated BUN (ICD-10 - R79.9) 12/01/2024 Pure hypercholesterolemia (ICD-10 - E78.00) 01/09/2025 Elevated LFTs (ICD-1 0 - R79.89) 02/13/2025 Elevated liver enzym es (ICD-10 - R74.8) 02/13/2025 Encounter for administration of vaccine (ICD-10 - Z23) 06/27/2024 Elevated BUN (ICD-10 - R79.9) decrease furosemide to one half 06/27/2024 Type 2 diabetes mellitus without complication (ICD-10 - E11.9) doing well on meds 08/25/2024 Type 2 diabetes mellitus without complication [...] not completely gone/ order given to patient 03/24/2025 Type 2 diabetes mellitus without complication (ICD-10 - E11.9) patient verbalized understanding of instructions to dc medication 12/25/2024 Pneumonia (ICD-10 - J18.9) order made and mailed to the patient to be done in 2 weeks. 02/17/2025 Pneumonia (ICD-10 - J18.9) Order mailed to the patient to be done week of 03-09-25. 06/20/2024 Prostatism (ICD-10 - N40.0) 06/27/2024 Essential hypertensi on (ICD-10 - I10) doing well on meds 12/04/2024 Acquired hypothyroid ism (ICD-10 - E03.9) 01/09/2025 Lung mass (ICD-10 - R91.8) was not there one month ago and seems likely infection. had a repeat cxr today that shows improvement that supports that it is not a cancer 03/24/2025 CHF (congestive hear t failure) (ICD-10 - I50.9) stable, will cntinue current regiment and oxygen at home 06/20/2024 Essential hypertensi on (ICD-10 - I10) [...] Order Date Electrocardiogram (EKG) 03/31/2016 ECHO 05/23/2021 Complete Blood Count no Diff 04/30/2025 Basic Metabolic Panel 04/30/2025 Lipase 04/30/2025 Glucose, Whole Blood 04/29/2025 Glucose, Whole Blood 04/30/2025 Glucose, Whole Blood 04/29/2025 Glucose, Whole Blood 04/29/2025 Glucose, Whole Blood 04/30/2025 Glucose, Whole Blood 04/29/2025 Glucose, Whole Blood 04/29/2025 XR chest 2V 12/25/2024 XR chest 2V 02/17/2025 Venous Blood Gases - POC 04/29/2025 Beta-Hydroxybutyrate 04/30/2025 NT Pro B Type Natriuretic Pept Blood Urea Nitrogen 07/24/2024 Creatinine 07/24/2024 Future Test Test Name Order Date XR CHEST 2 VIEW PA & LAT 02/17/2025 Next Appt Details Provider Name:Orestes javier, 05/28/2025 01:45:00 PM, [address] [place] [address], [address] [facility], [place], [place], [phone], Provider Name:Orestes javier, 06/26/2025 07:15:00 AM, [address] [place] [address], [address], [place], [place], [id number], Provider Name:Orestes Gloverzi javier, 07/03/2025 01:30:00 PM, [address], [address], [place], [id number], Insurance Providers Payer Name Payer Address Payer Phone Subscriber Number Group Number Insured Name Patient Relationship to Insured Coverage Start Date Coverage End Date MEDICARE [address] [place] [address] [id number] Delia Chávez Self - patient is the insured MEDEX BCBS OF [employer] [facility] [address] [place] [phone] [id number] Delia Chávez Self - patient is the insured Medical (General) History Medical History History ICD Code Hypothyroidism type II diabetes hypercholesterolemia colonoscopy 2008 not to have any more; C olonoscopy 01/09/19 - Dr. Allen cardiac cath october 2016 entirely normal sitiglip is esteban
--- OUTSIDE RECORDS SUMMARY | 2025-04-30 05:25 | XMS_ITS | Patient Health Record ---
Author Organization [facility] Address [address] [facility] [place] [address] Care Team Providers Care Environmental Compliance Officer Name Role Phone Orestes Alex MD Primary Care Provider Yakelin Hernández, Xenia Unavailable [phone] Allergies Allergen (clinical drug ingredient) Drug/Non Drug [...] Duration) Notes Start Date End Date Status eliquis 5 mg Active zzzCompression Stockings 20-30mm Hg . . .; Duration: . Not-Takin g Colcrys 0.6 MG 1 tablet Orally Once a day; Duration: 10 days 02/26/2013 Not-Takin g SITagliptin Active Calcium 600mg as directed Orally Not-Taking Tetanus Immune Globulin 250 UNIT/ML as directed Intramuscular Not-Taking Glimepiride 1 MG 1 tablet with breakf ast or the first main meal of the day Orally Once a day Active Pneumovax 23 25 MCG/0.5ML 0.5 ml one barbara e Injection Once a day; Duration: 1 day(s) Not-Taking Vitamin C Active Itraconazole 1/1% Orally No t-Taking Tamsulosin HCl 0.4 MG 1 capsule Orally 3 0mins after supper Active Farxiga 5 MG Orally Once a day Not-Taking Vitamin D 2000 UNIT as directed Orally Not-Taking CoQ-10 200 MG 1 capsule with a lisa l Orally Once a day; Duration: 30 day(s) Active Atorvastatin Calcium 80mg 1 tablet Orall y Once a day; Duration: 30 day(s) Active Januvia 50 MG Orally Once a day Not-Taking metFORMIN HCl 500mg 1 tablet with meals Orally Twice a day; Duration: 30 day(s) Active Centrum Silver as directed Orally Not-Taking Fish Oil 1000 MG 1 capsule Orally Onc e a day; Duration: 30 day(s) Active Ciclopirox Olamine 0.77 % 1 application to affected area Externally Twice a day; Duration: 30 days 02/28/2018 Not-Taking Levothyroxine Sodium 125 MCG 1 tablet on an empty stomach in the morning Orally Once a day Active Aspirin 81 MG 1 tablet Orally Once a day; Duration: 30 day(s) Not-Taking Vitamin D3 50 MCG (2000 UT) 1 capsule Orally Once a day; Duration: 30 day(s) Active Valsartan 320 MG 1 tablet Orally Once a day Not-Taking Immunizations Vaccine Route Administration Date Status [...] Problem Type II diabetes mellitus without complication (475483385) Type 2 diabetes mellitus without complications (E11.9) Active confirmed Vital Signs Blood pressure diastolic 67 mm Hg 12/04/2024 Height 5 ft 10 in in 12/04/2024 Blood pressure systolic 155 mm Hg 12/04/2024 Weight 147 lbs 12/04/2024 BMI 21.09 kg/m2 12/04/2024 Procedures Procedure Date Ordered Date Performed Result Body Sit e 67830-IUSYGJI NAIL, 6 OR MORE 05/26/2024 N/A 54115-Dnkoeqgt Plate 05/26/2024 N/A 69176-Kqhtqjtm Plate Each Additional 05/26/2024 N/A 78801-WPAFOSR NAIL, 6 OR MORE 12/04/2024 N/A Encounters Encounter Location Date Provider Diagnosis [address] [address] 05/26/2024 Xenia Black Tinea unguium B35.1 ; Ingrown nail L60.0 ; Type 2 diabetes mellitus without complications E11.9 ; Pain in right toe(s) M79.674 and Pain in left toe(s) M79.[address] [address] 12/04/2024 Xenia Black Tinea unguium B35.1 ; Type 2 diabetes mellitus without complications E11.9 ; Pain in right toe(s) M79.674 and Pain in left toe(s) M79.[address] [address] 12/04/2024 Xenia Hernández [address] [address] 01/26/2025 Xenia Hernández [address] [address] 04/13/2025 Xenia Black Assessments Encounter Date Diagnosis (ICD [...] X ray : Foot, right 3V 02/26/2013 82623-AQIYEUY NAIL, 6 OR MORE 04/30/2017 08683-NRWFAKL NAIL, 6 OR MORE 06/18/2017 41118-UNNQDFZ NAIL, 6 OR MORE 02/28/2018 78437-GSJUYGO NAIL, 6 OR MORE 05/27/2018 88800-VVEBSBF NAIL, 6 OR MORE 08/26/2018 47175-GOBMVFH NAIL, 6 OR MORE 11/14/2018 30018-CXQCYDO NAIL, 6 OR MORE 02/13/2019 46960-UIEASWX NAIL, 6 OR MORE 05/19/2019 41809-LLUQUFQ NAIL, 6 OR MORE 10/16/2019 85406-UYZIHPA NAIL, 6 OR MORE 01/22/2020 77827-TLTULOA NAIL, 6 OR MORE 04/26/2020 22830-HPGUVQC NAIL, 6 OR MORE 08/02/2020 99842-RKOOMTE NAIL, 6 OR MORE 10/28/2020 02966-DEJZAGB NAIL, 6 OR MORE 01/27/2021 68627-FAZXVCS NAIL, 6 OR MORE 05/09/2021 59097-EWMOBCD NAIL, 6 OR MORE 08/25/2021 75350-LKSNRQW NAIL, 6 OR MORE 03/09/2022 71483-GTOSODR NAIL, 6 OR MORE 06/22/2022 58414-WMYKYNN NAIL, 6 OR MORE 10/23/2022 23506-CPWTGYS NAIL, 6 OR MORE 11/28/2021 83577-OCPSALS NAIL, 6 OR MORE 02/22/2023 68561-WJHJTDM NAIL, 6 OR MORE 07/19/2023 98733-FJGZMBJ NAIL, 6 OR MORE 10/25/2023 66835-PRFYMDL NAIL, 6 OR MORE 02/14/2024 17380-IVMHPHO NAIL, 6 OR MORE 05/26/2024 80979-ONXPFFI NAIL, 6 OR MORE 12/04/2024 54930-Xpsykrhq Plate 05/26/2024 57571-Xoykmujq Plate 10/25/2023 19896-Ytcysbvj Plate 07/19/2023 24741-Abxjehbb Plate 02/22/2023 50097-Uvtdpjzw Plate 11/28/2021 72896-Aydeywzx Plate 08/25/2021 00758-Sxcitmyr Plate 10/28/2020 79645-Fgdmzdjt Plate Each Additional 30858 I&D ABSCESS- SIMPLE,SINGLE 022 19635 I&D ABSCESS- SIMPLE,SINGLE 021 46089 I&D ABSCESS- SIMPLE,SINGLE 021 25325-Hqsp. Subungual Hematoma 9 Nail Panel 04/30/2017 Insurance Providers Payer Name Payer Address Payer Phone Subscriber Number Group Number Insured Name Patient Relationship to Insured Coverage Start Date Coverage End Date Medicare National Govt [employer] [address] [place] [address] [id number] Richard Chávez Self - patient is the insured 1 [employer] Blue Shield [address] [place] [address] [id number] Richard Chávez Self - patient is the [...]
--- OUTSIDE RECORDS SUMMARY | 2025-04-30 05:25 | XMS_ITS | Patient Health Record ---
Author Organization [facility] Address [address] [place] [id number] Care Team Providers Care Operating Room Scheduler Name Role Phone Orestes Alex MD Primary Care Provider Mario Way [phone] Allergies Allergen (clinical drug ingredient) Drug/Non Drug Allergy documented on EMR Reaction Allergy Type Onset Date Status bee stings (uncoded) swells Allergy Active Reason For Referral No Information Medications Medication SIG (Take, Route, Frequency, Duration) Notes Start Date End Date Status Atorvastatin Calcium 80 MG Tablet 1 tablet Orally Once a day qhs Active Aspirin Adult Low Dose 81 MG Tablet Delayed Release 1 tablet Orally Once a day qhs Active Metformin & Diet Manage Prod 500 mg tablets 2 orally bid Active Tamsulosin HCl 0.4 MG Capsule 1 pill Orally every day Acti ve Synthroid 150 MCG Tablet 1 tablet Orally Once a day Active Glimepiride 2 MG Tablet 1 tablet with br eakfast or the first main meal of the day Orally Once a day; Duration: 30 day(s) Active Centrum Silver 1 Tablet 1 tablet Orally 1 every Sunday Active CoQ10 200 MG Capsule 1 capsule with a me al Orally Once a day Active Valsartan 320 MG Tablet 1 tablet Orally Once a day; Duration: 30 day(s) Active Vitamin D3 2000 UNIT Capsule 1 capsule Orally Once a day Active Calcium 600 mg tablet 1 Oral twice daily Active Fish Oil 1000 MG Capsule 2 capsules Oral ly at breakfast Active Vitamin C 1000 MG Tablet 1 tablet Orally Once a day Active Immunizations Vaccine Route Administration Date Status Comme nts Flu vaccine no Preserv 3 and > Unknown 03/08/2015 Admin istered Influenza Unknown 02/09/2018 Administered Influenza Unknown 03/02/2021 Administered Social History Social History Drugs/Alcohol: Social Info Question Answer Notes Alcohol Screen Did you have a drink containing alcohol in the past year? No Points 0 Interpretation Negative Additional Details Category Social Info Options Details Miscellaneous: Marital status: Occupation: Retired Section Notes: Nonsmoker; no sig alcohol Nonsmoker; no sig alcohol Nonsmoker; no sig alcohol Problems Problem Type SNOMED Code ICD Code Onset Dates Problem Status W/U Status Risk Notes Problem Rectal bleeding (88526451) Rectal bleeding (K62.5) Active confirmed Problem Altered bowel function (11509481) Change in bowel function (R19.4) Active confirmed Problem Anemia (702663066) Anemia (D64.9) Active confirmed Problem Constipation (83979769) Constipation, unspecified constipation type (K59.00) Active confirmed Problem Anemia (027795950) Anemia, unspecified type (D64.9) Active confirmed Plan Of Treatment Pending Test Test Name Order Date IRON + IBC (FE) 06/04/2022 CBC w DIFF 06/04/2022 CBC w DIFF 04/24/2022 CBC w DIFF 04/26/2022 Complete Blood Count Auto Diff 2 IRON PROFILE 06/06/2022 Future Test Test Name Order Date COLONOSCOPY 12/31/2018 Insurance Providers Payer Name Payer Address Payer Phone Subscriber Number Group Number Insured Name Patient Relationship to Insured Coverage Start Date Coverage End Date MEDICARE OF [place] [address] [place] [facility] [address] [phone] [id number] DELIA CAT Self - patient is the insured [employer] ATTN CLAIMS [address] [place] [phone] [id number] DELIA CAT Self - patient is the insured Medical (General) History Medical History History ICD Code Colonoscopy 10-07-2007 and --negative except diverticulosis and internal hemorrhoids; 3 negative Hemoccult cards in 01/2016 Hyperlipidemia BPH Denies RI,CVA,Lung disease,renal disease NIDDM Hypothyroidism Colonoscopy 01/2019 several small tubular adenomas removed Surgical History Surgery Date(Month/Year) Thumb surgery 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
[2025-04-30 05:37] LABS: Resp Syncy Virus RNA Qual PCR NEGATIVE (Negative); SARS COV2 PCR INHOUSE NEGATIVE (Negative)
--- NOTE | 2025-04-30 05:44 | PC.NURSE ---
lab staff called for critical value: Glucose 460
[2025-04-30 05:46] LABS: Anion Gap 23 (12-20); Blood Urea Nitrogen 44 mg/dL (9-16); Calcium 9.3 mg/dL (8.4-10.2); Carbon Dioxide 17 mmol/L (22-29); Chloride 98 mmol/L (96-108); Creatinine Clr Calc Pharmacy 30.0; Estimated Glomerular Filt Rate 42; Magnesium 1.7 mg/dL (1.6-2.6); Potassium 3.7 mmol/L (3.3-5.1); Sodium 134 mmol/L (135-145)
[2025-04-30 07:06] LABS: Glucose, Whole Blood 491 mg/dL (60-115)
[2025-04-30] MEDS: Insulin Glargine,Hum.rec.anlog 100 UNIT/ML 10 ML VIAL 20 UNIT SUBCUT ×2 (07:42→20:57)
[2025-04-30 08:38] LABS: Glucose, Whole Blood 310 mg/dL (60-115)
--- NOTE | 2025-04-30 09:09 | PHA.MEDREC ---
Pharmacy Consult ? Medication Reconciliation Pharmacy has completed the medication reconciliation.Med rec is complete, used a combination of a list from the patient, pharmacy claims history and medical records from the patient's primary care provider. Patient is not a good historian and no family that is involved with his care.
--- NOTE | 2025-04-30 09:33 | PC.NURSE ---
Blood glucose 491 at 0700. 10 units lispro and regular insulin given. Additional 20 units glargine given. Repeat sugar 310. A&Ox3. VSS on 2L NC, BSL to patient. Patient voiding with purewick.
--- NOTE | 2025-04-30 09:38 | HO.NURTONUR ---
Richard is a 89M full code who presented to the ED after having increased confusion at home, patient lives alone with , son found patient to be confused and called ems. patient glucose was >800 in ED, received IV fluids and insulin. patient states he has been feeling increased sob w/ chronic cough admit for acute metabolic encephalopathy secondary to DKA A1C 11.4 monitor anion donald poc with meals, sliding scale insulin long acting insulin SOB duonebs prn CXR neg patient has IV access, awake and alert.
--- NOTE | 2025-04-30 10:27 | HO.PM.IMPN ---
Subjective Subjective Date of Service: 04/30/25 Interval History: no appetite Physical Exam Exam: Exam: General: AO X 2, ill appearing Resp: CTA bilateral, no accessory muscles used CVS: S1,S2,RRR GI: soft, non tender, non distended Neuro: motor grossly intact, alert Psych: appropriate affect, appropriate insight Vital Signs: Vital Signs: Last Vital Signs Temp 98.3 F 04/30/25 07:13 Pulse 66 04/30/25 07:13 Resp 17 04/30/25 07:13 BP 116/50 L 04/30/25 07:13 Pulse Ox 97 04/30/25 07:13 O2 Del Method Nasal Cannula 04/30/25 07:13 O2 Flow Rate 2 04/30/25 07:13 Oxygen Flow Rate 2 04/29/25 21:00 BMI result Body Mass Index 20.3 Objective Data Active Medications Acetaminophen (Acetaminophen 325 Mg Tablet) 975 mg PO Q6H PRN PRN Reason: Pain, Mild 1-3,fever,headache Apixaban (Apixaban 5 Mg Tablet) 5 mg PO BID [facility] Ascorbic Acid (Ascorbic Acid 500 Mg Tablet) 500 mg PO BEDTIME [facility] Atorvastatin Calcium (Atorvastatin Calcium 80 Mg Tablet) 80 mg PO BEDTIME [facility] Calcium Carbonate (Calcium Carbonate 750 Mg Tab.Chew) 750 mg PO Q4H PRN PRN Reason: Heartburn Dextrose (Dextrose 50 % 25 Gm/50 Ml Syringe) 25 gm IVPUSH Q15M PRN; Protocol PRN Reason: per Hypoglycemia Standing Ord. Diltiazem HCl (Diltiazem Hcl Cd 180 Mg Cap.Er.24h) 180 mg PO DAILY [facility]; Protocol Glucose (Glucose Gel 15 Gm Gel..Gram.) 15 gm PO Q15M PRN; Protocol PRN Reason: per Hypoglycemia Standing Ord. Insulin Glargine (Insulin Glargine,Hum.Rec.Anlog 100 Unit/Ml 10 Ml Vial) 20 unit SUBCUT BID [facility] Last Admin: 04/30/25 07:42 Dose: 20 unit Documented By: LEIGH Comments: Insulin Human Lispro (Insulin Lispro 100 Unit/Ml 3 Ml Vial) 0 unit SUBCUT QIDACHS [facility]; Protocol Last Admin: 04/30/25 07:12 Dose: 10 unit Documented By: LEIGH Comments: BS 491 Levothyroxine Sodium (Levothyroxine Sodium 125 Mcg Tablet) 125 mcg PO DAILY@0600 [facility] Magnesium Hydroxide (Milk Of Magnesia 30 Ml Oral.Susp) 30 ml PO DAILY PRN PRN Reason: Constipation Melatonin (Melatonin 3 Mg Tablet) 6 mg PO BEDTIME PRN PRN Reason: Insomnia Last Admin: 04/30/25 04:36 Dose: 6 mg Documented By: CARLOZ Metoprolol Succinate (Metoprolol Succinate Er 50 Mg Tab.Er.24h) 50 mg PO BEDTIME [facility]; Protocol Ondansetron HCl (Ondansetron Hcl 4 Mg/2 Ml Vial) 4 mg IVPUSH Q8H PRN PRN Reason: Nausea and Vomiting Oxycodone HCl (Oxycodone Hcl Immed Release 5 Mg Tablet) 5 mg PO Q6H PRN PRN Reason: Pain, Severe (Pain Scale 7-10) Sodium Chloride (0.9 % Sodium Chloride Flush 3 Ml Syringe) 3 ml IVFLUSH QSHIFT [facility] Last Admin: 04/30/25 07:46 Dose: Not Given Documented By: LEIGH Non-Admin Reason: See Note Tamsulosin HCl (Tamsulosin Hcl 0.4 Mg Capsule) 0.4 mg PO BEDTIME [facility] Tramadol HCl (Tramadol Hcl 50 Mg Tablet) 50 mg PO Q6H PRN PRN Reason: Pain, Moderate(Pain Scale 4-6) Vitamin D (Cholecalciferol (Vitamin D3) 25 Mcg Tablet) 50 mcg PO BEDTIME [facility] Labs 04/30/25 05:04 04/30/25 05:04 Labs: Laboratory Results - last 24 hr 04/29/25 04/29/25 04/29/25 21:03 21:35 21:41 MCV 97.5 MCH 33.4 H MCHC 34.3 RDW 13.2 Plt Count 131 L D MPV 11.3 Immature Gran % (Auto) 0.6 H Neut % (Auto) 66.3 Lymph % (Auto) 24.1 [place] % (Auto) 7.5 Eos % (Auto) 1.0 Baso % (Auto) 0.5 Lymph # (Auto) 2.7 [place] # (Auto) 0.8 Eos # (Auto) 0.1 Baso # (Auto) 0.1 Abs Immat Gran (auto) 0.07 H Absolute Neuts (auto) 7.4 Absolute Nucleated RBC 0.000 Nucleated RBC % (auto) 0.0 VBG pH VBG pCO2 VBG pO2 VBG HCO3 VBG O2 Saturation VBG Base Excess Anion Gap 27 H Estim Creat Clear Calc 24.0 Estimated GFR 33 POC Glucose > 600 H* Random Glucose 811 H* Estimat Average Glucose 280 Hemoglobin A1c % 11.4 H Calcium 9.9 Magnesium Total Bilirubin 1.1 H AST 32 ALT 30 Alkaline Phosphatase 252 H NT-Pro-B Natriuret Pep Total Protein 7.7 Albumin 4.2 Lipase 126 H Beta-Hydroxybutyrate 1.19 H Urine Color Yellow Urine Appearance Clear Urine pH 5.0 Ur Specific [place] 1.020 Urine Protein Negative Urine Glucose (UA) >=1000 H Urine Ketones Negative Urine Blood Negative Urine Nitrite Negative Ur Leukocyte Esterase Negative Urine RBC 0-2 Urine WBC 0-5 Ur Squamous Epith Cells 0-2 Urine Bacteria None Seen Hyaline Casts 0-2 Influenza Type A (PCR) Influenza Type B (PCR) RSV RNA Qual (PCR) SARS-CoV-2 RNA (RT-PCR) 04/29/25 04/29/25 04/29/25 21:50 22:13 22:24 MCV MCH MCHC RDW Plt Count MPV Immature Gran % (Auto) Neut % (Auto) Lymph % (Auto) [place] % (Auto) Eos % (Auto) Baso % (Auto) Lymph # (Auto) [place] # (Auto) Eos # (Auto) Baso # (Auto) Abs Immat Gran (auto) Absolute Neuts (auto) Absolute Nucleated RBC Nucleated RBC % (auto) VBG pH 7.39 VBG pCO2 24 VBG pO2 51 VBG HCO3 15 L VBG O2 Saturation 77.0 VBG Base Excess -7.8 Anion Gap Estim Creat Clear Calc Estimated GFR POC Glucose > 600 H* > 600 H* Random Glucose Estimat Average Glucose Hemoglobin A1c % Calcium Magnesium Total Bilirubin AST ALT Alkaline Phosphatase NT-Pro-B Natriuret Pep Total Protein Albumin Lipase Beta-Hydroxybutyrate Urine Color Urine Appearance Urine pH Ur Specific [place] Urine Protein Urine Glucose (UA) Urine Ketones Urine Blood Urine Nitrite Ur Leukocyte Esterase Urine RBC Urine WBC Ur Squamous Epith Cells Urine Bacteria Hyaline Casts Influenza Type A (PCR) Influenza Type B (PCR) RSV RNA Qual (PCR) SARS-CoV-2 RNA (RT-PCR) 04/29/25 04/29/25 04/30/25 23:13 23:35 00:54 MCV MCH MCHC RDW Plt Count MPV Immature Gran % (Auto) Neut % (Auto) Lymph % (Auto) [place] % (Auto) Eos % (Auto) Baso % (Auto) Lymph # (Auto) [place] # (Auto) Eos # (Auto) Baso # (Auto) Abs Immat Gran (auto) Absolute Neuts (auto) Absolute Nucleated RBC Nucleated RBC % (auto) VBG pH VBG pCO2 VBG pO2 VBG HCO3 VBG O2 Saturation VBG Base Excess Anion Gap Estim Creat Clear Calc Estimated GFR POC Glucose > 600 H* 577 H* 415 H* Random Glucose Estimat Average Glucose Hemoglobin A1c % Calcium Magnesium Total Bilirubin AST ALT Alkaline Phosphatase NT-Pro-B Natriuret Pep Total Protein Albumin Lipase Beta-Hydroxybutyrate Urine Color Urine Appearance Urine pH Ur Specific [place] Urine Protein Urine Glucose (UA) Urine Ketones Urine Blood Urine Nitrite Ur Leukocyte Esterase Urine RBC Urine WBC Ur Squamous Epith Cells Urine Bacteria Hyaline Casts Influenza Type A (PCR) Influenza Type B (PCR) RSV RNA Qual (PCR) SARS-CoV-2 RNA (RT-PCR) 04/30/25 04/30/25 04/30/25 02:05 02:20 04:21 MCV MCH MCHC RDW Plt Count MPV Immature Gran % (Auto) Neut % (Auto) Lymph % (Auto) [place] % (Auto) Eos % (Auto) Baso % (Auto) Lymph # (Auto) [place] # (Auto) Eos # (Auto) Baso # (Auto) Abs Immat Gran (auto) Absolute Neuts (auto) Absolute Nucleated RBC Nucleated RBC % (auto) VBG pH VBG pCO2 VBG pO2 VBG HCO3 VBG O2 Saturation VBG Base Excess Anion Gap 20 Estim Creat Clear Calc 29.4 Estimated GFR 41 POC Glucose 416 H* Random Glucose 451 H* Estimat Average Glucose Hemoglobin A1c % Calcium 9.0 D Magnesium Total Bilirubin AST ALT Alkaline Phosphatase NT-Pro-B Natriuret Pep 2163.1 H Total Protein Albumin Lipase 102 H Beta-Hydroxybutyrate 0.76 H Urine Color Urine Appearance Urine pH Ur Specific [place] Urine Protein Urine Glucose (UA) Urine Ketones Urine Blood Urine Nitrite Ur Leukocyte Esterase Urine RBC Urine WBC Ur Squamous Epith Cells Urine Bacteria Hyaline Casts Influenza Type A (PCR) NEGATIVE Influenza Type B (PCR) NEGATIVE RSV RNA Qual (PCR) NEGATIVE SARS-CoV-2 RNA (RT-PCR) NEGATIVE 04/30/25 04/30/25 04/30/25 05:04 07:02 08:34 MCV 93.6 MCH 33.3 H MCHC 35.5 RDW 13.2 Plt Count 131 L MPV 11.0 Immature Gran % (Auto) Neut % (Auto) Lymph % (Auto) [place] % (Auto) Eos % (Auto) Baso % (Auto) Lymph # (Auto) [place] # (Auto) Eos # (Auto) Baso # (Auto) Abs Immat Gran (auto) Absolute Neuts (auto) Absolute Nucleated RBC 0.000 Nucleated RBC % (auto) 0.0 VBG pH VBG pCO2 VBG pO2 VBG HCO3 VBG O2 Saturation VBG Base Excess Anion Gap 23 H Estim Creat Clear Calc 30.0 Estimated GFR 42 POC Glucose 491 H* 310 H Random Glucose 460 H* Estimat Average Glucose Hemoglobin A1c % Calcium 9.3 Magnesium 1.7 Total Bilirubin AST ALT Alkaline Phosphatase NT-Pro-B Natriuret Pep Total Protein Albumin Lipase Beta-Hydroxybutyrate Urine Color Urine Appearance Urine pH Ur Specific [place] Urine Protein Urine Glucose (UA) Urine Ketones Urine Blood Urine Nitrite Ur Leukocyte Esterase Urine RBC Urine WBC Ur Squamous Epith Cells Urine Bacteria Hyaline Casts Influenza Type A (PCR) Influenza Type B (PCR) RSV RNA Qual (PCR) SARS-CoV-2 RNA (RT-PCR) Assessment and Plan (1) Diabetes mellitus: Status: Acute Plan 89M PMH DM, hfpef, history of TAVR, htn, paflutter on eliquis, hypothyroid, presented with confusion and hyperglycemia Acute metabolic encephalopathy due to diabetes with diabetic ketoacidosis Mental status improving, initially anion gap closed but now elevated this morning, continue basal bolus insulin and monitor IV hydration, hold orals Chronic diastolic CHF Hold diuretics, IV hydration Paroxysmal a flutter Continue apixaban, diltiazem, metoprolol Hypothyroid Levothyroxine Acute kidney injury Continue IV fluids, monitor DVT prophylaxis with apixaban Full code reason for continued hospitalization: Hyperglycemia Quality Stroke Does the patient have a stroke diagnosis?: No VTE Prior VTE?: No VTE Risk Level:: Medical - moderate - high VTE Device Contraindication: Treatment Not Indicated VTE Drug Contraindication: N/A - Med Ordered
[2025-04-30 11:38] LABS: Glucose, Whole Blood 256 mg/dL (60-115)
[2025-04-30 12:50] LABS: Glucose, Whole Blood 236 mg/dL (60-115)
[2025-04-30 16:15] LABS: Glucose, Whole Blood 224 mg/dL (60-115)
--- NOTE | 2025-04-30 16:59 | HO.SKINPHOTO ---
Location: Category: Stage: Length: Width: Depth: cm Location: Category: Stage: Length: Width: Depth: cm Location: Category: Stage: Length: Width: Depth: cm Location: Category: Stage: Length: Width: Depth: cm Location: Category: Stage: Length: Width: Depth: cm Location: Category: Stage: Length: Width: Depth: cm
[2025-04-30 20:38] LABS: Glucose, Whole Blood 141 mg/dL (60-115)
[2025-04-30] MEDS: Metoprolol Succinate ER 50 MG TAB.ER.24H PO (20:59)
[2025-05-01] VITALS (7 sets, daily range): BP systolic 132–162; BP diastolic 63–84; PULSE 62–82; RESP 18–20; TEMP 36.2–37.1; O2SAT 93–99; BMI 21.5
[2025-05-01] MEDS: 0.9 % Sodium Chloride Flush 3 ML SYRINGE IVFLUSH ×4 (00:40→20:58)
[2025-05-01 06:45] LABS: Hematocrit 39.6 % (42.0-52.0); Hemoglobin 13.6 g/dl (14.0-18.0); Mean Corpuscular HGB Conc 34.3 g/dl (31.0-36.0); Mean Corpuscular Hemoglobin 33.0 pg (27.0-33.0); Mean Corpuscular Volume 96.1 fL (80.0-98.0); NRBC Abs Auto 0.000 X10*3/uL (0.0-0.012); NRBC Pct Auto 0.0 /100WBC (0.0-0.2); Platelet Count 126 X10*3/uL (160-400); Red Blood Count 4.12 X10*6/uL (4.60-5.80); White Blood Count 11.1 X10*3/uL (4.8-10.8)
[2025-05-01 07:04] LABS: Glucose, Whole Blood 78 mg/dL (60-115)
[2025-05-01 07:07] LABS: Magnesium 1.8 mg/dL (1.6-2.6)
[2025-05-01] MEDS: dilTIAZem HCL CD 180 MG CAP.ER.24H PO (09:01)
[2025-05-01] MEDS: Insulin Glargine,Hum.rec.anlog 100 UNIT/ML 10 ML VIAL 10 UNIT SUBCUT ×2 (09:03→20:57)
--- NOTE | 2025-05-01 10:32 | MHC.CM.PN ---
IMM GIVEN 05/01. 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 DME: CANE, WALKER, HOME O2 THROUGH [facility]. HCP ON FILE AND VERIFIED. DP: RETURN HOME SELF-CARE, WILL ARRANGE HIS OWN TRANSPORT HOME AT DISCHARGE. PCP: DR. YELENA WYNNE
--- NOTE | 2025-05-01 10:41 | P.PNIM_ITS ---
Subjective Subjective Date of Service: 05/01/25 Interval History: improved appetite Physical Exam 2 Exam: Exam: General: AO X 2, ill appearing Resp: CTA bilateral, no accessory muscles used CVS: S1,S2,RRR GI: soft, non tender, non distended Neuro: motor grossly intact, alert Psych: appropriate affect, appropriate insight Vital Signs: Vital Signs: Last Vital Signs Temp 97.7 F 05/01/25 07:19 Pulse 80 05/01/25 09:01 Resp 20 05/01/25 07:19 BP 132/70 05/01/25 09:01 Pulse Ox 98 05/01/25 07:19 O2 Del Method Nasal Cannula 05/01/25 07:19 O2 Flow Rate 2 05/01/25 07:19 Oxygen Flow Rate 2 04/29/25 21:00 BMI result Body Mass Index 20.9 Objective Data Active Medications Acetaminophen (Acetaminophen 325 Mg Tablet) 975 mg PO Q6H PRN PRN Reason: Pain, Mild 1-3,fever,headache Apixaban (Apixaban 5 Mg Tablet) 5 mg PO BID [facility] Last Admin: 05/01/25 09:03 Dose: 5 mg Documented By: ANDREA Ascorbic Acid (Ascorbic Acid 500 Mg Tablet) 500 mg PO BEDTIME [facility] Last Admin: 04/30/25 20:59 Dose: 500 mg Documented By: RIANNAASY Atorvastatin Calcium (Atorvastatin Calcium 80 Mg Tablet) 80 mg PO BEDTIME [facility] Last Admin: 04/30/25 20:59 Dose: 80 mg Documented By: SLY Calcium Carbonate (Calcium Carbonate 750 Mg Tab.Chew) 750 mg PO Q4H PRN PRN Reason: Heartburn Dextrose (Dextrose 50 % 25 Gm/50 Ml Syringe) 25 gm IVPUSH Q15M PRN; Protocol PRN Reason: per Hypoglycemia Standing Ord. Diltiazem HCl (Diltiazem Hcl Cd 180 Mg Cap.Er.24h) 180 mg PO DAILY [facility]; Protocol Last Admin: 05/01/25 09:01 Dose: 180 mg Documented By: ANDREA Glucose (Glucose Gel 15 Gm Gel..Gram.) 15 gm PO Q15M PRN; Protocol PRN Reason: per Hypoglycemia Standing Ord. Insulin Glargine (Insulin Glargine,Hum.Rec.Anlog 100 Unit/Ml 10 Ml Vial) 10 unit SUBCUT BID [facility] Last Admin: 05/01/25 09:03 Dose: 10 unit Documented By: ANDREA Insulin Human Lispro (Insulin Lispro 100 Unit/Ml 3 Ml Vial) 0 unit SUBCUT QIDACHS [facility]; Protocol Last Admin: 05/01/25 08:25 Dose: Not Given Documented By: ANDREA Non-Admin Reason: No Insulin Coverage Levothyroxine Sodium (Levothyroxine Sodium 125 Mcg Tablet) 125 mcg PO DAILY@0600 [facility] Last Admin: 05/01/25 05:43 Dose: 125 mcg Documented By: ANTOIC Magnesium Hydroxide (Milk Of Magnesia 30 Ml Oral.Susp) 30 ml PO DAILY PRN PRN Reason: Constipation Melatonin (Melatonin 3 Mg Tablet) 6 mg PO BEDTIME PRN PRN Reason: Insomnia Last Admin: 04/30/25 04:36 Dose: 6 mg Documented By: CARLOZ Metoprolol Succinate (Metoprolol Succinate Er 50 Mg Tab.Er.24h) 50 mg PO BEDTIME [facility]; Protocol Last Admin: 04/30/25 20:59 Dose: 50 mg Documented By: SLY Ondansetron HCl (Ondansetron Hcl 4 Mg/2 Ml Vial) 4 mg IVPUSH Q8H PRN PRN Reason: Nausea and Vomiting Oxycodone HCl (Oxycodone Hcl Immed Release 5 Mg Tablet) 5 mg PO Q6H PRN PRN Reason: Pain, Severe (Pain Scale 7-10) Sodium Chloride (0.9 % Sodium Chloride Flush 3 Ml Syringe) [facility] Last Admin: 05/01/25 09:03 Dose: 3 ml Documented By: ANDREA Tamsulosin HCl (Tamsulosin Hcl 0.4 Mg Capsule) 0.4 mg PO BEDTIME [facility] Last Admin: 04/30/25 20:59 Dose: 0.4 mg Documented By: SLY Tramadol HCl (Tramadol Hcl 50 Mg Tablet) 50 mg PO Q6H PRN PRN Reason: Pain, Moderate(Pain Scale 4-6) Vitamin D (Cholecalciferol (Vitamin D3) 25 Mcg Tablet) 50 mcg PO BEDTIME [facility] Last Admin: 04/30/25 20:58 Dose: 50 mcg Documented By: SLY Labs 05/01/25 06:14 04/30/25 05:04 Labs: Laboratory Results - last 24 hr 04/30/25 04/30/25 04/30/25 11:35 12:45 15:57 MCV MCH MCHC RDW Plt Count MPV Absolute Nucleated RBC Nucleated RBC % (auto) POC Glucose 256 H 236 H 224 H Magnesium 04/30/25 05/01/25 05/01/25 20:34 06:14 06:56 MCV 96.1 MCH 33.0 MCHC 34.3 RDW 13.7 Plt Count 126 L MPV 10.4 Absolute Nucleated RBC 0.000 Nucleated RBC % (auto) 0.0 POC Glucose 141 H 78 Magnesium 1.8 Assessment and Plan (1) Diabetes mellitus: Status: Acute Plan 89M PMH DM, hfpef, history of TAVR, htn, paflutter on eliquis, hypothyroid, presented with confusion and hyperglycemia Acute metabolic encephalopathy due to diabetes with diabetic ketoacidosis Mental status improving, hyperglcyemia improving, continue basal bolus insulin and monitor IV hydration, hold orals Chronic diastolic CHF Hold diuretics Paroxysmal a flutter Continue apixaban, diltiazem, metoprolol Hypothyroid Levothyroxine Acute kidney injury monitor DVT prophylaxis with apixaban Full code reason for continued hospitalization: monitor sugars, pt eval Quality Stroke Does the patient have a stroke diagnosis?: No VTE Prior VTE?: No VTE Risk Level:: Medical - moderate - high VTE Device Contraindication: Treatment Not Indicated VTE Drug Contraindication: N/A - Med Ordered
--- NOTE | 2025-05-01 11:28 | HO.WOUND ---
Wound Consult: Initial 89 yr old male admitted [place] [facility] [place]- See progress notes and H&P for detailed history. Wound consult placed for coccyx. Patient agreeable to assessment and photo documentation. Patient reports several falls recently at home. Unclear if patient had any significant downtime. Coccyx/buttocks Etiology: Coccyx/buttocks deep tissue pressure injury present on admission - moisture component noted in gluteal fold, perianal region- patient with low platelets noted as possible contributing factor, possible downtime, or possible injury from falls. Deep tissue pressure injury: Intact or non intact skin with localized are of non-blanchable deep red, maroon, purple discoloration OR epidermial separation revealing a dark wound bed OR blood filled blister. Pain and temperature changes often precede color changes, can show 48-72 hours later. May resolve without causing ulceration or full thickness skin loss, or it may evolve to reveal actual extent of tissue injury Unclear Prolonged down time: pressure injuries sustained from periods of prolonged down time can evolve over several days. continue to monitor resolution/evolution of skin injuries. Measurements: 4cm x 4cm x 0cm Wound Bed: Areas of intact pink, red and purple intact discoloration across coccyx/buttocks/gluteal fold areas of blanching and nonblanching- left inner buttocks near ruth anal with pinpoint open area deep red base- moist skin noted ruth anal. Drainage / Odor: none Edges: ? diffuse/irregular Ruth wound: ? No Induration, Fluctuance or Warmth noted Pain: none Goals of Treatment: ? offloading with foam - triad paste to perineum/perianal Left heel - intact, pink blanching - offloaded with pillows Right heel- intact pink and blanching- offloaded with pillows Left leg- intact deep blue/purple/green bruising Right hip/thigh- intact deep purple bruise with edges fading to blue/green/yellow - two small dry intact scabs noted - not likely pressure related in light of large bruising Right lateral elbow- 3 dry stable scabs- no surrounding redness- no induration, no fluctuance, no driainage - patient reports falling on pavement - leave LIEN at this time. Occiput with dry crusted skin lesion - surrounding skin pink and blanching- patient able to lift head for assessment - denies pain or injury - not likely pressure related- recommend dermatology follow up outpatient. Recommendations: 1. Turn and Reposition every 2 hours and as needed for patient comfort. Use pillows or wedges to support off loading positions. 2. Off Load all bony prominences with use of pillows and heel boots if needed. Apply Preventative foams where needed. 3. Monitor for incontinence and moisture control, use barrier creams when needed for prevention and treatment. 4. Provide adequate and supplemental nutrition. 5. Order or Continue low air loss mattress. 6. When applicable maintain blood glucose levels per Providers order. Coccyx/Buttocks: Off Load Pressure with Q2 hr turns and use of pillows - Routine cleansing. Apply skin prep allow to dry. Cover with foam dressing to aid in off loading and protection from friction. Change every 3 days and PRN. May apply triad paste to ruth anal/perineum Re-consult wound care Nurse for wound deterioration or wound changes.
[2025-05-01 11:31] LABS: Glucose, Whole Blood 253 mg/dL (60-115)
--- NOTE | 2025-05-01 12:32 | MHC.CLN ---
PT WITH INCREASED NUTRITION RISK R/T PRESSURE INJURY DIET RX: 2000DM RECOMMEND ENSURE MAX BID TO PROMOTE WOUND HEALING SUPP TO PROVIDE 300KCALS, 60G PROTEIN MONITOR PO INTAKE AND ENCOURAGE SUPPLEMENTS
[2025-05-01 13:28] LABS: Blood Urea Nitrogen 32 mg/dL (9-16); Calcium 8.8 mg/dL (8.4-10.2); Creatinine Clr Calc Pharmacy 39.1; Estimated Glomerular Filt Rate 55
[2025-05-01 13:49] LABS: Anion Gap 14 (12-20); Carbon Dioxide 24 mmol/L (22-29); Chloride 101 mmol/L (96-108); Potassium 4.3 mmol/L (3.3-5.1); Sodium 135 mmol/L (135-145)
[2025-05-01 16:21] LABS: Glucose, Whole Blood 102 mg/dL (60-115)
[2025-05-01 20:22] LABS: Glucose, Whole Blood 241 mg/dL (60-115)
[2025-05-01] MEDS: Metoprolol Succinate ER 50 MG TAB.ER.24H PO (20:54)
[2025-05-02] VITALS (10 sets, daily range): BP systolic 121–169; BP diastolic 63–82; PULSE 54–82; RESP 16–20; TEMP 36.4–37.2; O2SAT 87–100
[2025-05-02 08:02] LABS: Hematocrit 39.8 % (42.0-52.0); Hemoglobin 13.6 g/dl (14.0-18.0); Mean Corpuscular HGB Conc 34.2 g/dl (31.0-36.0); Mean Corpuscular Hemoglobin 32.9 pg (27.0-33.0); Mean Corpuscular Volume 96.4 fL (80.0-98.0); NRBC Abs Auto 0.000 X10*3/uL (0.0-0.012); NRBC Pct Auto 0.0 /100WBC (0.0-0.2); Platelet Count 125 X10*3/uL (160-400); Red Blood Count 4.13 X10*6/uL (4.60-5.80); White Blood Count 9.6 X10*3/uL (4.8-10.8)
[2025-05-02 08:08] LABS: Glucose, Whole Blood 102 mg/dL (60-115)
[2025-05-02 08:10] LABS: Anion Gap 12 (12-20); Blood Urea Nitrogen 25 mg/dL (9-16); Calcium 8.8 mg/dL (8.4-10.2); Carbon Dioxide 26 mmol/L (22-29); Chloride 104 mmol/L (96-108); Creatinine Clr Calc Pharmacy 46.6; Estimated Glomerular Filt Rate > 60; Magnesium 1.9 mg/dL (1.6-2.6); Potassium 4.0 mmol/L (3.3-5.1); Sodium 138 mmol/L (135-145)
[2025-05-02] MEDS: dilTIAZem HCL CD 180 MG CAP.ER.24H PO (08:11)
[2025-05-02] MEDS: Insulin Glargine,Hum.rec.anlog 100 UNIT/ML 10 ML VIAL 10 UNIT SUBCUT ×2 (08:12→20:37)
[2025-05-02] MEDS: 0.9 % Sodium Chloride Flush 3 ML SYRINGE IVFLUSH ×3 (08:16→20:37)
--- NOTE | 2025-05-02 10:26 | HO.PM.IMPN ---
Subjective Subjective Date of Service: 05/02/25 Interval History: right hip pain Physical Exam Exam: Exam: General: AO X 2, ill appearing Resp: CTA bilateral, no accessory muscles used CVS: S1,S2,RRR GI: soft, non tender, non distended Neuro: motor grossly intact, alert Psych: appropriate affect, appropriate insight Vital Signs: Vital Signs: Last Vital Signs Temp 98.0 F 05/02/25 08:00 Pulse 82 05/02/25 08:11 Resp 18 05/02/25 08:00 BP 145/77 H 05/02/25 08:11 Pulse Ox 92 05/02/25 08:00 O2 Del Method Nasal Cannula 05/02/25 08:00 O2 Flow Rate 1 05/02/25 08:00 Oxygen Flow Rate 2 04/29/25 21:00 BMI result Body Mass Index 21.5 Objective Data Active Medications Acetaminophen (Acetaminophen 325 Mg Tablet) 975 mg PO Q6H PRN PRN Reason: Pain, Mild 1-3,fever,headache Apixaban (Apixaban 5 Mg Tablet) 5 mg PO BID [facility] Last Admin: 05/02/25 08:11 Dose: 5 mg Documented By: LILIANA Ascorbic Acid (Ascorbic Acid 500 Mg Tablet) 500 mg PO BEDTIME [facility] Last Admin: 05/01/25 20:57 Dose: 500 mg Documented By: CHANTELLE Atorvastatin Calcium (Atorvastatin Calcium 80 Mg Tablet) 80 mg PO BEDTIME [facility] Last Admin: 05/01/25 20:54 Dose: 80 mg Documented By: CHANTELLE Calcium Carbonate (Calcium Carbonate 750 Mg Tab.Chew) 750 mg PO Q4H PRN PRN Reason: Heartburn Dextrose (Dextrose 50 % 25 Gm/50 Ml Syringe) 25 gm IVPUSH Q15M PRN; Protocol PRN Reason: per Hypoglycemia Standing Ord. Diltiazem HCl (Diltiazem Hcl Cd 180 Mg Cap.Er.24h) 180 mg PO DAILY [facility]; Protocol Last Admin: 05/02/25 08:11 Dose: 180 mg Documented By: LILIANA Glucose (Glucose Gel 15 Gm Gel..Gram.) 15 gm PO Q15M PRN; Protocol PRN Reason: per Hypoglycemia Standing Ord. Insulin Glargine (Insulin Glargine,Hum.Rec.Anlog 100 Unit/Ml 10 Ml Vial) 10 unit SUBCUT BID [facility] Last Admin: 05/02/25 08:12 Dose: 10 unit Documented By: LILIANA Insulin Human Lispro (Insulin Lispro 100 Unit/Ml 3 Ml Vial) 0 unit SUBCUT QIDACHS [facility]; Protocol Last Admin: 05/02/25 08:03 Dose: Not Given Documented By: LILIANA Non-Admin Reason: No Insulin Coverage Comments: POC 102 Levothyroxine Sodium (Levothyroxine Sodium 125 Mcg Tablet) 125 mcg PO DAILY@0600 [facility] Last Admin: 05/02/25 05:54 Dose: 125 mcg Documented By: CHANTELLE Magnesium Hydroxide (Milk Of Magnesia 30 Ml Oral.Susp) 30 ml PO DAILY PRN PRN Reason: Constipation Melatonin (Melatonin 3 Mg Tablet) 6 mg PO BEDTIME PRN PRN Reason: Insomnia Last Admin: 04/30/25 04:36 Dose: 6 mg Documented By: CARLOZ Metoprolol Succinate (Metoprolol Succinate Er 50 Mg Tab.Er.24h) 50 mg PO BEDTIME [facility]; Protocol Last Admin: 05/01/25 20:54 Dose: 50 mg Documented By: CHANTELLE Ondansetron HCl (Ondansetron Hcl 4 Mg/2 Ml Vial) 4 mg IVPUSH Q8H PRN PRN Reason: Nausea and Vomiting Oxycodone HCl (Oxycodone Hcl Immed Release 5 Mg Tablet) 5 mg PO Q6H PRN PRN Reason: Pain, Severe (Pain Scale 7-10) Sodium Chloride (0.9 % Sodium Chloride Flush 3 Ml Syringe) [facility] Last Admin: 05/02/25 08:16 Dose: 3 ml Documented By: LILIANA Tamsulosin HCl (Tamsulosin Hcl 0.4 Mg Capsule) 0.4 mg PO BEDTIME [facility] Last Admin: 05/01/25 20:57 Dose: 0.4 mg Documented By: CHANTELLE Tramadol HCl (Tramadol Hcl 50 Mg Tablet) 50 mg PO Q6H PRN PRN Reason: Pain, Moderate(Pain Scale 4-6) Vitamin D (Cholecalciferol (Vitamin D3) 25 Mcg Tablet) 50 mcg PO BEDTIME [facility] Last Admin: 05/01/25 20:54 Dose: 50 mcg Documented By: CHANTELLE Labs 05/02/25 07:29 05/02/25 07:29 Labs: Laboratory Results - last 24 hr 05/01/25 05/01/25 05/01/25 11:03 13:05 16:16 MCV MCH MCHC RDW Plt Count MPV Absolute Nucleated RBC Nucleated RBC % (auto) Anion Gap 14 Estim Creat Clear Calc 39.1 Estimated GFR 55 POC Glucose 253 H 102 Random Glucose 239 H Calcium 8.8 Magnesium 05/01/25 05/02/25 05/02/25 20:19 07:29 08:01 MCV 96.4 MCH 32.9 MCHC 34.2 RDW 14.0 Plt Count 125 L MPV 10.6 Absolute Nucleated RBC 0.000 Nucleated RBC % (auto) 0.0 Anion Gap 12 Estim Creat Clear Calc 46.6 Estimated GFR > 60 POC Glucose 241 H 102 Random Glucose 95 Calcium 8.8 Magnesium 1.9 Assessment and Plan (1) Diabetes mellitus: Status: Acute Plan 89M PMH DM, hfpef, history of TAVR, htn, paflutter on eliquis, hypothyroid, presented with confusion and hyperglycemia Acute metabolic encephalopathy due to diabetes with diabetic ketoacidosis Mental status improving, hyperglcyemia improving, continue basal bolus insulin and monitor hip pain check xray Chronic diastolic CHF Hold diuretics Paroxysmal a flutter Continue apixaban, diltiazem, metoprolol Hypothyroid Levothyroxine Acute kidney injury resolved DVT prophylaxis with apixaban Full code reason for continued hospitalization: monitor sugars, hip pain Quality Stroke Does the patient have a stroke diagnosis?: No VTE Prior VTE?: No VTE Risk Level:: Medical - moderate - high VTE Device Contraindication: Treatment Not Indicated VTE Drug Contraindication: N/A - Med Ordered
[2025-05-02 10:48] LABS: Glucose, Whole Blood 310 mg/dL (60-115)
[2025-05-02 16:22] LABS: Glucose, Whole Blood 192 mg/dL (60-115)
[2025-05-02 19:32] LABS: Glucose, Whole Blood 213 mg/dL (60-115)
[2025-05-03] VITALS: BP 139/65; PULSE 94; RESP 16; TEMP 37.4; O2SAT 99
[2025-05-03 04:00] VITALS: BP 158/80; PULSE 70; RESP 20; TEMP 36.9; O2SAT 95
[2025-05-03 07:01] VITALS: BP 146/72; PULSE 68; RESP 16; TEMP 36.6; O2SAT 96
[2025-05-03 07:24] LABS: Glucose, Whole Blood 88 mg/dL (60-115)
[2025-05-03] MEDS: dilTIAZem HCL CD 180 MG CAP.ER.24H PO (07:49)
[2025-05-03] MEDS: Insulin Glargine,Hum.rec.anlog 100 UNIT/ML 10 ML VIAL 10 UNIT SUBCUT (07:50)
[2025-05-03] MEDS: 0.9 % Sodium Chloride Flush 3 ML SYRINGE IVFLUSH (07:50)
--- NOTE | 2025-05-03 10:21 | P.PNIM_ITS ---
Subjective Subjective Date of Service: 05/03/25 Interval History: right hip pain Physical Exam 2 Exam: Exam: General: AO X 3, no acute distress Resp: CTA bilateral, no accessory muscles used CVS: S1,S2,RRR GI: soft, non tender, non distended Neuro: motor grossly intact, alert Psych: appropriate affect, appropriate insight Vital Signs: Vital Signs: Last Vital Signs Temp 97.9 F 05/03/25 07:01 Pulse 68 05/03/25 07:01 Resp 16 05/03/25 07:01 BP 146/72 H 05/03/25 07:01 Pulse Ox 96 05/03/25 07:01 O2 Del Method Nasal Cannula 05/03/25 07:01 O2 Flow Rate 1 05/03/25 07:01 Oxygen Flow Rate 2 04/29/25 21:00 BMI result Body Mass Index 21.5 Objective Data Active Medications Acetaminophen (Acetaminophen 325 Mg Tablet) 975 mg PO Q6H PRN PRN Reason: Pain, Mild 1-3,fever,headache Apixaban (Apixaban 5 Mg Tablet) 5 mg PO BID [facility] Last Admin: 05/03/25 07:49 Dose: 5 mg Documented By: LILIANA Ascorbic Acid (Ascorbic Acid 500 Mg Tablet) 500 mg PO BEDTIME [facility] Last Admin: 05/02/25 20:36 Dose: 500 mg Documented By: CHANTELLE Atorvastatin Calcium (Atorvastatin Calcium 80 Mg Tablet) 80 mg PO BEDTIME [facility] Last Admin: 05/02/25 20:36 Dose: 80 mg Documented By: CHANTELLE Calcium Carbonate (Calcium Carbonate 750 Mg Tab.Chew) 750 mg PO Q4H PRN PRN Reason: Heartburn Dextrose (Dextrose 50 % 25 Gm/50 Ml Syringe) 25 gm IVPUSH Q15M PRN; Protocol PRN Reason: per Hypoglycemia Standing Ord. Diltiazem HCl (Diltiazem Hcl Cd 180 Mg Cap.Er.24h) 180 mg PO DAILY [facility]; Protocol Last Admin: 05/03/25 07:49 Dose: 180 mg Documented By: LILIANA Glucose (Glucose Gel 15 Gm Gel..Gram.) 15 gm PO Q15M PRN; Protocol PRN Reason: per Hypoglycemia Standing Ord. Insulin Glargine (Insulin Glargine,Hum.Rec.Anlog 100 Unit/Ml 10 Ml Vial) 10 unit SUBCUT BID [facility] Last Admin: 05/03/25 07:50 Dose: 10 unit Documented By: LILIANA Insulin Human Lispro (Insulin Lispro 100 Unit/Ml 3 Ml Vial) 0 unit SUBCUT QIDACHS [facility]; Protocol Last Admin: 05/03/25 07:34 Dose: Not Given Documented By: LILIANA Non-Admin Reason: No Insulin Coverage Levothyroxine Sodium (Levothyroxine Sodium 125 Mcg Tablet) 125 mcg PO DAILY@0600 [facility] Last Admin: 05/03/25 05:49 Dose: 125 mcg Documented By: CHANTELLE Magnesium Hydroxide (Milk Of Magnesia 30 Ml Oral.Susp) 30 ml PO DAILY PRN PRN Reason: Constipation Melatonin (Melatonin 3 Mg Tablet) 6 mg PO BEDTIME PRN PRN Reason: Insomnia Last Admin: 04/30/25 04:36 Dose: 6 mg Documented By: CARLOZ Metoprolol Succinate (Metoprolol Succinate Er 50 Mg Tab.Er.24h) 50 mg PO BEDTIME [facility]; Protocol Last Admin: 05/02/25 20:39 Dose: Not Given Documented By: CHANTELLE Non-Admin Reason: Physician Held Med Ondansetron HCl (Ondansetron Hcl 4 Mg/2 Ml Vial) 4 mg IVPUSH Q8H PRN PRN Reason: Nausea and Vomiting Oxycodone HCl (Oxycodone Hcl Immed Release 5 Mg Tablet) 5 mg PO Q6H PRN PRN Reason: Pain, Severe (Pain Scale 7-10) Sodium Chloride (0.9 % Sodium Chloride Flush 3 Ml Syringe) 3 ml IVFLUSH QSHIFT [facility] Last Admin: 05/03/25 07:50 Dose: 3 ml Documented By: LILIANA Tamsulosin HCl (Tamsulosin Hcl 0.4 Mg Capsule) 0.4 mg PO BEDTIME [facility] Last Admin: 05/02/25 20:36 Dose: 0.4 mg Documented By: HCANTELLE Tramadol HCl (Tramadol Hcl 50 Mg Tablet) 50 mg PO Q6H PRN PRN Reason: Pain, Moderate(Pain Scale 4-6) Vitamin D (Cholecalciferol (Vitamin D3) 25 Mcg Tablet) 50 mcg PO BEDTIME [facility] Last Admin: 05/02/25 20:36 Dose: 50 mcg Documented By: CHANTELLE Labs 05/02/25 07:29 05/02/25 07:29 Labs: Laboratory Results - last 24 hr 05/02/25 05/02/25 05/02/25 10:41 16:18 19:28 POC Glucose 310 H 192 H 213 H 05/03/25 06:58 POC Glucose 88 Assessment and Plan (1) Diabetes mellitus: Status: Acute Plan 89M PMH DM, hfpef, history of TAVR, htn, paflutter on eliquis, hypothyroid, presented with confusion and hyperglycemia Acute metabolic encephalopathy due to diabetes with diabetic ketoacidosis Mental status back to baseline, hyperglcyemia improving, continue basal bolus insulin and monitor hip pain xray - negative Chronic diastolic CHF Hold diuretics Paroxysmal a flutter Continue apixaban, diltiazem, metoprolol Hypothyroid Levothyroxine Acute kidney injury resolved DVT prophylaxis with apixaban Full code reason for continued hospitalization: dispo planning Quality Stroke Does the patient have a stroke diagnosis?: No VTE Prior VTE?: No VTE Risk Level:: Medical - moderate - high VTE Device Contraindication: Treatment Not Indicated VTE Drug Contraindication: N/A - Med Ordered
--- NOTE | 2025-05-03 10:24 | P.DS_ITS ---
DS: Providers Provider Date of Service: 05/03/25 Date of admission: 04/30/25 03:34 Date of discharge: 05/03/25 Primary care physician: Orestes Alex MD Consults: 04/30/25 17:00 Consult to Wound Care Routine Consulting Provider: [facility] Wound Care Management Reason for consultation: blanchable redness/small open skin area to the coccyx; DS: Diagnosis Discharge Diagnosis (1) Diabetes mellitus: Status: Acute DS: Summary Hospital Course Hospital Course: from initial hpi: 89-year-old male has been history significant for type 2 diabetes, HFpEF, history TAVR, nocturnal hypoxemia, HTN, atrial flutter on Eliquis, and hypothyroid, who presented to the ED via EMS as the patient's son called because the patient was confused. No reported falls. When EMS arrived to see the patient to glucose reading was 800, IV fluids were given. The patient lives alone with his who has services, she is unable to help with his care. He reports he has been taking his medications and prescribed but later reports a fever for the past few days and mild SOB. no nausea, vomiting, abd pain or urinary sx. he reports a mild cough which is at baseline. hospital course: Patient was admitted for acute metabolic encephalopathy due to diabetes with diabetic ketoacidosis. He was given basal bolus insulin and DKA resolved, mental status returned to baseline. Likely this was triggered by poor compliance and need for insulin. He should continue basal bolus insulin on discharge. For hip pain x-ray was negative. For chronic diastolic CHF initially diuretics held for dehydration due to DKA, this will be restarted on discharge. For paroxysmal atrial flutter was continued on apixaban, diltiazem, metoprolol. For hypothyroid continue levothyroxine. For acute kidney injury due to dehydration from DKA resolved with IV fluids. Patient was seen by physical therapy and recommended short-term rehab to which patient will be discharged he is expected require less than 30 days. Time Attestation Discharge Coordination Time (in mins): 33 Quality: Safe Use of Opioids Does Pt have an Active Cancer Diagnosis on the Problem List?: No Quality: Stroke Does the patient have a stroke diagnosis?: No Physical Exam Vital Signs: Vital Signs: Last Vital Signs Temp 97.9 F 05/03/25 07:01 Pulse 68 05/03/25 07:01 Resp 16 11/23/25 07:01 BP 146/72 H 05/03/25 07:01 Pulse Ox 96 05/03/25 07:01 O2 Del Method Nasal Cannula 05/03/25 07:01 O2 Flow Rate 1 05/03/25 07:01 Oxygen Flow Rate 2 04/29/25 21:00 BMI result Body Mass Index 21.5 DS: Data Data Completed and Pending Labs on day of discharge: Laboratory Results - last 24 hr 05/02/25 05/02/25 05/02/25 10:41 16:18 19:28 POC Glucose 310 H 192 H 213 H 05/03/25 06:58 POC Glucose 88 Discharge Plan Discharge Anticipated Discharge Date/Time: 05/03/25 10:23 Patient Disposition: er [facility] Discharge Diagnosis: dka, encephalopathy Referrals: Orestes Alex MD [Primary Care Provider, Medical] - 1 Week Discharge Medications: New insulin glargine [Lantus U-100 Insulin] 100 unit/mL Solution 10 unit subcut BID Qty: 0 0RF insulin lispro [Admelog U-100 Insulin lispro] 100 unit/mL Solution See Protocol subcut QIDACHS Qty: 0 0RF Protocol: Insulin Correction Scale Less than or equal to 110 ---- Give (units): 0 111 to 150 Give (units): 0 151 to 200 Give (units): 2 201 to 250 Give (units): 4 251 to 300 Give (units): 6 301 to 350 Give (units): 8 Greater than 350 Give (units): 10 Call MD if Blood Glucose > : 350 Continued ferrous sulfate [FeroSul] 325 mg (65 mg iron) tablet 325 mg PO DAILY coenzyme Q10 [CoQ-10] 100 mg Capsule 200 mg PO BEDTIME cholecalciferol (vitamin D3) [Vitamin D3] 50 mcg (2,000 unit) Tablet 50 mcg PO BEDTIME omega 1-axe-blz-fish oil [Fish Oil] 1,000 mg (120 mg-180 mg) Capsule 1 cap PO DAILY diltiazem HCl [DILT-XR] 180 mg capsule,ext.rel 24h degradable 180 mg PO DAILY ascorbic acid (vitamin C) [Vitamin C] 500 mg Tablet 500 mg PO BEDTIME sitagliptin 50 mg Tablet 50 mg PO DAILY atorvastatin 80 mg tablet 80 mg PO BEDTIME tamsulosin 0.4 mg capsule 0.4 mg PO BEDTIME metformin 500 mg tablet 1,000 mg PO BID levothyroxine 125 mcg tablet 125 mcg PO DAILY@0600 (DME) FreeStyle Lite Strips Strip See Rx Instructions .ROUTE DAILY Qty: 10 Rx Instructions: As directed furosemide 40 mg tablet 40 mg PO BID Qty: 180 2RF metoprolol succinate [Toprol XL] 50 mg tablet extended release 24 hr 50 mg PO BEDTIME Qty: 90 2RF Eliquis 5 mg tablet 5 mg PO BID Qty: 180 2RF Discontinued glipizide 5 mg tablet 5 mg PO DAILY dapagliflozin propanediol [Farxiga] 5 mg tablet 5 mg PO DAILY Qty: 30 5RF Discharge Orders: Discharge Order (Routine); Ordered 05/03/25 Ordered By: Mani Da Silva Diet: Diabetic diet Activity on Discharge: As tolerated Stand Alone Forms: Patient Portal Discharge page Print Language: Italian Care Plan Goals: manage DM Health Concerns: DKA Plan of Treatment: added basal bolus insulin, rehab Assessment: see above
--- NOTE | 2025-05-03 10:37 | MHC.CM.PN ---
Addendum entered by Kellie Avila 05/03/25 12:34: DAY [facility] OFFERING A BED PT AWARE AND AGREEABLE BLS TRANSPORT BOOKED FOR 1400 WITH LIAM SON, DAMARIS [phone] UPDATED PER PT REQUEST Original Note: CM INFORMED PT IS MEDICALLY READY TO DC TODAY AND OPEN TO STR CM MET WITH PT WHO SAYS HE HAS GONE TO REHAB BEFORE HERE AT [facility] CM EXPLAINED THIS WOULD BE IN REHAB, HE REPORTS HE IS STILL AGREEABLE HE REPORTS THERE IS SOMEONE STAYING WITH HIS RIGHT NOW AND SAYS THEY CAN STAY WHILE HE IS AT [facility] HE REPORTS HE WOULD LIKE A REHAB IN [place], BUT HAS NO PREFERRED SNF REFERRALS SENT BASED ON LOCATION AND RATINGS
[2025-05-03 11:02] LABS: Glucose, Whole Blood 295 mg/dL (60-115)
[2025-05-03 11:11] VITALS: BP 121/58; PULSE 71; RESP 18; TEMP 36.6; O2SAT 94
== END 2025-05-03 14:48 | disposition skilled nursing facility (03) | DRG 637 ==
LOC: HO.ED 04-30 03:22 → HO.EDOVER 04-30 03:40 → HO.IMC 04-30 14:41
PROVIDERS: Hospitalist; Physician Assistant; Admitting Provider Physician Assistant; Emergency Provider Emergency Medicine; PCP Internal Medicine; Visit Provider Internal Medicine
DX: E11.10 Type 2 diabetes mellitus with ketoacidosis without coma (principal); G93.41 Metabolic encephalopathy; I50.32 Chronic diastolic (congestive) heart failure; N17.9 Acute kidney failure, unspecified; I48.92 Unspecified atrial flutter; E03.9 Hypothyroidism, unspecified; M25.551 Pain in right hip; I11.0 Hypertensive heart disease with heart failure; E86.0 Dehydration; Z20.822 Contact with and (suspected) exposure to COVID-19; Z95.2 Presence of prosthetic heart valve; Z87.891 Personal history of nicotine dependence; Z91.148 Patient's other noncompliance with medication regimen for other reason; Z79.4 Long term (current) use of insulin; Z79.01 Long term (current) use of anticoagulants; Z79.84 Long term (current) use of oral hypoglycemic drugs; Z79.890 Hormone replacement therapy; Z79.899 Other long term (current) drug therapy
CPT/HCPCS: 36415; 71045; 73502; 80048; 80053; 81001; 82010; 82803; 82947; 83036; 83690; 83735; 83880; 85025; 85027; 87637; 93005; 97162; 99285; J2405

== ENCOUNTER → 2025-04-29 21:12 | Outpatient (BNV) | payer MEDICARE, SELFPAY ==
[2024-12-23 15:15] VITALS: BP 122/60; BP 134/60; BMI 24.7
== END ==
PROVIDERS: Admitting Provider Physician Assistant; Emergency Provider Emergency Medicine; PCP Internal Medicine; Visit Provider Internal Medicine
DX: I48.92 Unspecified atrial flutter (principal); I44.4 Left anterior fascicular block
CPT/HCPCS: 93010

== ENCOUNTER 2025-04-30 03:34 | Outpatient (BNV) | payer MEDICARE, SELFPAY ==
[2024-12-23 15:15] VITALS: BP 122/60; BP 134/60; BMI 24.7
== END 2025-04-30 04:21 ==
PROVIDERS: Admitting Provider Physician Assistant; Emergency Provider Emergency Medicine; PCP Internal Medicine; Visit Provider Radiology Diagnostic Radiology
DX: R91.8 Other nonspecific abnormal finding of lung field (principal)
CPT/HCPCS: 71045

== ENCOUNTER 2025-04-30 03:34 | Outpatient (BNV) | payer MEDICARE, SELFPAY ==
[2024-12-23 15:15] VITALS: BP 122/60; BP 134/60; BMI 24.7
== END 2025-05-02 10:22 ==
PROVIDERS: Admitting Provider Physician Assistant; Emergency Provider Emergency Medicine; PCP Internal Medicine; Visit Provider Radiology Diagnostic Radiology
DX: M25.551 Pain in right hip (principal); Z04.3 Encounter for examination and observation following other accident
CPT/HCPCS: 73502

== ENCOUNTER → 2025-04-30 03:34 | Outpatient (BNV) | payer MEDICARE, SELFPAY ==
[2024-12-23 15:15] VITALS: BP 122/60; BP 134/60; BMI 24.7
== END ==
PROVIDERS: Admitting Provider Physician Assistant; Emergency Provider Emergency Medicine; PCP Internal Medicine; Visit Provider Internal Medicine
DX: E11.9 Type 2 diabetes mellitus without complications (principal)
CPT/HCPCS: 99233

== ENCOUNTER 2025-06-05 10:15 | Inpatient (IN) | payer MEDICARE, SELFPAY ==
--- OUTSIDE RECORDS SUMMARY | 2024-09-01 08:00 | XMS_ITS ---
Author Organization [facility] Address [address] [place] [address] Care Team Providers Care Rainbow Trout Farm Manager Name Role Phone Isai DAVILA, Orestes Primary Care Provider Xenia Rojas [phone] Mark Encounters Encounter Location Date Provider Diagnosis [facility] [address] [place] [address] 09/01/2024 Xenia Hernández Plan Of Treatment No Information Progress Notes * Richard CAT WDOB:1935 (89 yo M)Acc No.[id number]:09/01/2024 Progress Note Patient: Richard HERRERA Provider: Sherita Hernández DPM :1935 A ge:89 Y S ex:Male Date:09/01/2024 Address:[address] [facility] [id number] Pcp:Orestes Alex MD Subjective: * Chief Complaints: [...] 09/01/2024 Generated for Printi ng/Faxing/eTransmitting on: 1 08/06/2024 11:51 AM EST
[2024-12-23 15:15] VITALS: BP 122/60; BP 134/60; BMI 24.7
--- OUTSIDE RECORDS SUMMARY | 2025-01-09 06:45 | XMS_ITS ---
Author Organization Orestes Alex MD Address [address] [place], [place] [phone] Care Team Providers Care Sand Technologist Name Role Phone Orestes Alex Primary Care Provider Allergies No Known Allergies Results Component Value Reference Range Notes Glucose, finger stick Reviewed date:01/09/2025 11:50:54 AM Interpretation: Performing Lab: Notes/Report: Value 149 REASON FOR VISIT PH/TCM Medications Medication SIG (Take, Route, Frequency, Duration) Notes Start Date End Date Status Dilt-XR 180 MG TAKE 1 CAPSULE BY MO UTH EVERY DAY for 30 Active Furosemide 40 MG TAKE 1 TABLET BY ETELVINA TH EVERY DAY Active Atorvastatin Calcium 80 MG TAKE 1 TABLET ONCE DAILY Active Levothyroxine Sodium 125 MCG TAKE 1 TABLET EVERY MORNINGON AN EMPTY STOMACH Active SITagliptin 50 MG 1tablets Orally Once a day Active metFORMIN HCl 500 MG 1 tablet Orally twi ce a day Active glipiZIDE 5 MG TAKE 1 TABLET ONCE D AILY 30MINUTES BEFORE BREAKFAST Active Metoprolol Succinate ER 25 MG 1 tablet Orally Once a day Active FeroSul 325 (65 Fe) MG TAKE 1 TABLET BY MOUTH EVERY DAY Orally for 90 days Active Eliquis 5 MG TAKE 1 TABLET TWICE A DAY Active Tamsulosin HCl 0.4 MG TAKE 1 CAPSULE ONC E DAILY DIRECTED Active FreeStyle Lancets - USE TO TEST BLOOD SAINZ GAR FOUR TIMES DAILY for 90 Active Amoxicillin 500 MG TAKE 4 CAPSULES BY M OUTH 1 HOUR BEFORE DENTAL APPOINTMENT FOR 1 DAY for 1 Active Accu-Chek Suzanne Plus 0 DIRECTED DAILY IN VITRO 90 Active FreeStyle Lite Test - USE TO TEST BLOOD SUGAR FOUR TIMES DAILY for 100 Active Problems Problem Type SNOMED Code ICD Code Onset Dates Problem Status W/U Status Risk Notes Problem Congestive heart failure (12980692) CHF (congestive heart failure) (I50.9) Active confirmed Vital Signs Blood pressure systolic 122 mm Hg 01/10/20 25 Blood pressure diastolic 64 mm Hg 025 Height 67 in 01/09/2025 Weight 159 lbs 01/09/2025 BMI 24.9 kg/m2 01/09/2025 weight is up 5 pounds since Encounters Encounter Location Date Provider Diagnosis Orestes Alex MD [address] [place] [address] Drive [address] [place], [place] [phone] 01/09/2025 Orestes Alex Type 2 diabetes mellitus without complication E11.9 ; CHF (congestive heart failure) I50.9 and Lung mass R91.8 Assessments Encounter Date Diagnosis (ICD Code) Assessment Notes Treatment Notes Treatment Clinical Notes Section Notes 01/09/2025 Type 2 diabetes mellitus without complication (ICD-10 - E11.9) 01/09/2025 CHF (congestive heart failure) (ICD-10 - I50.9) double the furosemide for the next week/ very short of breath today with swelling in legs and 5 pound weight gain am concerned that he has some volume overload 01/09/2025 Lung mass (ICD-10 - R91.8) was not there one month ago and seems likely infection. had a repeat cxr today that shows improvement that supports that it is not a cancer Plan Of Treatment Medication Medication Name Sig Start Date Stop Date Notes Furosemide 40 MG TAKE 1 TABLET BY MOUTH EVERY DAY SITagliptin 50 MG 1tablets Orally Once a day metFORMIN HCl 500 MG 1 tablet Orally twice a day glipiZIDE 5 MG TAKE 1 TABLET ONCE D AILY 30MINUTES BEFORE BREAKFAST Treatment Notes Assessment Notes CHF (congestive heart failure) double th e furosemide for the next week/ very short of breath today with swelling in legs and 5 pound weight gain am concerned that he has some volume overload Lung mass was not there one mo nth ago and seems likely infection. had a repeat cxr today that shows improvement that supports that it is not a cancer Next Appt Details Follow Up: 10 days, Reason: Provider Name:Orestes javier, 06/25/2025 01:30:00 PM, [address] [place] [address], Suite [facility], [place], [place], [phone], Provider Name:Orestes Linda ier, 06/26/2025 07:15:00 AM, [address] [place] [address], Suite [facility], [place], [place], [phone], Provider Name:Orestes Venancio Maddi silvar, 07/03/2025 01:30:00 PM, [address] [place] [address], Suite [facility], [place], [place], [phone], Progress Notes * Delia CAT WDOB:1935 (89 yo M)Acc No.[id number]:01/09/2025 Patient: Delia HERRERA Provider: Nicolette Alex MD :1935 A ge:89 Y S ex:Male Date:01/09/2025 Address:[address] [place] [address], [facility] [place], [id number] Subjective: * Chief Complaints: * P H/TCM * HPI: S ymptom(s): patient is 89 yo male here for transitional care management visit. discharge summary has been reviewed and medications reconcilled. * ROS: G eneral/Constitutional: Denies C hills. D enies F atigue. D enies F ever. D enies H eadache. E NT: Denies S ore throat. R espiratory: Admits C ough. A dmits S hortness of breath at rest. A dmits S hortness of breath with exertion. C ardiovascular: Admits F luid accumulation in the legs. G astrointestinal: Denies D iarrhea. D enies N ausea. * Medical History: * Surgical History: * Hospitalization/Major Diagno stic Procedure: * Medications: T akingAccu-Chek Suzanne Plus 0 Strip DIRECTED DAILY IN VITRO 90 FreeStyle Lite Test - Strip USE TO TEST BLOOD SUGAR FOUR TIMES DAILY FreeStyle Lancets - Miscellaneous USE TO TEST BLOOD SUGAR FOUR TIMES DAILY Tamsulosin HCl 0.4 MG Capsule TAKE 1 CAPSULE ONCE DAILY DIRECTED Amoxicillin 500 MG Capsule TAKE 4 CAPSULES BY MOUTH 1 HOUR BEFORE DENTAL APPOINTMENT FOR 1 DAY metFORMIN HCl 500 MG Tablet 1 tablet Orally twice a day FeroSul 325 (65 Fe) MG Tablet TAKE 1 TABLET BY MOUTH EVERY DAY Orally Metoprolol Succinate ER 25 MG Tablet Extended Release 24 Hour 1 tablet Orally Once a day Eliquis 5 MG Tablet TAKE 1 TABLET TWICE A DAY glipiZIDE 5 MG Tablet TAKE 1 TABLET ONCE DAILY 30MINUTES BEFORE BREAKFAST SITagliptin 50 MG Tablet 1tablets Orally Once a day Levothyroxine Sodium 125 MCG Tablet TAKE 1 TABLET EVERY MORNINGON AN EMPTY STOMACH Atorvastatin Calcium 80 MG Tablet TAKE 1 TABLET ONCE DAILY Furosemide 40 MG Tablet TAKE 1 TABLET BY MOUTH EVERY DAY Dilt-XR 180 MG Capsule Extended Release 24 Hour TAKE 1 CAPSULE BY MOUTH EVERY DAY Medication List reviewed and reconciled with the patientTaking Accu-Chek Suzanne Plus 0 Strip DIRECTED DAILY IN VITRO 90 Taking FreeStyle Lite Test - Strip USE TO TEST BLOOD SUGAR FOUR TIMES DAILY Taking FreeStyle Lancets - Miscellaneous USE TO TEST BLOOD SUGAR FOUR TIMES DAILY Taking Tamsulosin HCl 0.4 MG Capsule TAKE 1 CAPSULE ONCE DAILY DIRECTED Taking Amoxicillin 500 MG Capsule TAKE 4 CAPSULES BY MOUTH 1 HOUR BEFORE DENTAL APPOINTMENT FOR 1 DAY Taking metFORMIN HCl 500 MG Tablet 1 tablet Orally twice a day Taking FeroSul 325 (65 Fe) MG Tablet TAKE 1 TABLET BY MOUTH EVERY DAY Orally Taking Metoprolol Succinate ER 25 MG Tablet Extended Release 24 Hour 1 tablet Orally Once a day Taking Eliquis 5 MG Tablet TAKE 1 TABLET TWICE A DAY Taking glipiZIDE 5 MG Tablet TAKE 1 TABLET ONCE DAILY 30MINUTES BEFORE BREAKFAST Taking SITagliptin 50 MG Tablet 1tablets Orally Once a day Taking Levothyroxine Sodium 125 MCG Tablet TAKE 1 TABLET EVERY MORNINGON AN EMPTY STOMACH Taking Atorvastatin Calcium 80 MG Tablet TAKE 1 TABLET ONCE DAILY Taking Furosemide 40 MG Tablet TAKE 1 TABLET BY MOUTH EVERY DAY Taking Dilt-XR 180 MG Capsule Extended Release 24 Hour TAKE 1 CAPSULE BY MOUTH EVERY DAY Medication List reviewed and reconciled with the patient * Allergies: N .K.D.A.yes[Allergies Verified] Objective: * Vitals: H t: 67, Wt: 159, BMI:24.9, BP:122/64, Wt-k.12. weight is up 5 pounds -00-23. * Examination: G eneral Examination: GENERAL APPEARANCE: s hort of breath with walking. HEAD: n ormocephalic. SKIN: g ood turgor. HEART: r egular rate and rhythm. LUNGS: w itl rales half way. EXTREMITIES: 4 + pitting edema lower extremities. ? Assessment: * Assessment: 1. T ype 2 diabetes mellitus without complication - E11.9 (Primary) 2 . C HF (congestive heart failure) - I50.9 3 . L [place]ville mass - R91.8 Plan: * Treatment: Value Reference Range V alue 149 2.?CHF (congestive heart failure)? Continue Furosemide Tablet, 40 MG, TAKE 1 TABLET BY MOUTH EVERY DAY.?? Notes: double the furosemide for the next week/ very short of breath today with swelling in legs and 5 pound weight gain am concerned that he has some volume overload??3.?Lung mass? Notes: was not there one month ago and seems likely infection. had a repeat cxr today that shows improvement that supports that it is not a cancer?? * Procedure Codes: 8 2947 ASSAY, GLUCOSE, BLOOD QUANT, Modifiers: QW * Follow Up: 1 0 days * * Sign off status: Completed true * Provider: Nicolette Alex MD Date: 0 01/09/2025 Generated for Morelia martell/Bernardino/Zhangsmitting on: 1 08/06/2024 11:52 AM EST History and Physical Notes * HPI (History of Present Illness) Category Sub-Category Detail Notes Category Not es Symptom(s) patient is 89 y o male here for transitional care management visit. discharge summary has been reviewed and medications reconcilled Examination Category Sub-Category Detail Notes Category Not es General Examination GENERAL APPEARANCE: short of breat h with walking HEAD: normocephalic HEART: regular rate and rhy thm LUNGS: witl rales half way SKIN: good turgor EXTREMITIES: 4+ pitting edema low er extremities
--- OUTSIDE RECORDS SUMMARY | 2025-01-20 08:45 | XMS_ITS ---
Author Organization Orestes Alex MD Address [address] [place], [place] [phone] Care Team Providers Care Marine Service Station Attendant Name Role Phone Orestes Alex Primary Care [...] Location Date Provider Diagnosis Orestes Alex MD [address] [place] [address] [place] [phone] 01/20/2025 Orestes Alex Type 2 diabetes mellitus [...] 02/17/2025 Next Appt Details Provider Name:Orestes Linda ienia, 06/25/2025 01:30:00 PM, [address] [facility] [address], [address], [place], [phone], Provider Name:Orestes Linda ier, 06/26/2025 07:15:00 AM, [address] [facility] [address] [facility] [address], [address], [place], [phone], Provider Name:Orestes Linda ier, 07/03/2025 01:30:00 PM, [address] [facility] [address] [facility] [address], [address], [place], [place], [phone], Progress Notes * Delia CAT WDOB:1935 (89 yo M)Acc No.[id number]:01/20/2025 Progress Notes Patient: Delia HERRERA Provider: Nicolette Alex MD :1935 A ge:89 Y S ex:Male Date:01/20/2025 Address:[address] [place] [address], [facility] [id number] Subjective: * Chief Complaints: * 1 0 [...] 01/20/2025 Generated for Morelia martell/Bernardino/eTmikysmitting on: 1 08/06/2024 11:50 AM EST History and Physical Notes * [...]
--- OUTSIDE RECORDS SUMMARY | 2025-02-02 08:35 | XMS_ITS ---
Author Organization Orestes Alex MD Address [address] [place] [phone] Care Team Providers Care Wood Carver Hand Name Role Phone Orestes Alex Primary Care Provider REASON FOR VISIT bilateral ankle edema x 1 day Encounters Encounter Location Date Provider Diagnosis Orestes Alex MD [address] [place] [address] [address] [place] [phone] 02/02/2025 Orestes Alex Plan Of Treatment Next Appt Details Provider Name:Orestes javier, 06/25/2025 01:30:00 PM, [address] [place] [address], Suite [facility], [place], [place], [phone], Provider Name:Orestes javier, 06/26/2025 07:15:00 AM, [address] [place] [address], Suite [facility], [place], [place], [phone], Provider Name:Orestes javier, 07/03/2025 01:30:00 PM, [address], [address], [place], [place], [phone], Progress Notes * Delia CAT WDOB:1935 (89 yo M)Acc No.[id number]:02/02/2025 Patient: Delia HERRERA :1935 A ge:89 Y S ex:Male Address:[address] [place] [address], [place] [address] * true * Date: Generated for Morelia martell/Bernardino/eTransmitting on: 08/06/2024 11:52 AM EST
--- OUTSIDE RECORDS SUMMARY | 2025-02-13 04:00 | XMS_ITS ---
Author Organization Orestes Alex MD Address [address] [place], [place] [phone] Care Team Providers Care Electroencephalogram Technologist Name Role Phone Orestes Alex Primary Care Provider [phone] Results Component Value Reference Range Notes Liver Panel Reviewed date:02/13/2025 12:45:26 PM Interpretation: Performing Lab:[facility], [address] [place] [phone] Notes/Report: Bilirubin Total 0.9 0.0-1.0 mg/dL Bilirubin Direct 0.4 0.0-0.5 mg/dL Aspartate Amino Transferase 44 5-37 U/L Alanine Aminotransferase 26 0-40 U/L Total Protein 7.0 6.5-8.0 g/dL Albumin Level 3.9 3.5-5.0 g/dL Alkaline Phosphatase 126 39-117 U/L REASON FOR VISIT liver panel Immunizations Vaccine Route Administration Date Status Comme nts Influenza High Dose IM Intramuscular 02/13/2025 Administer ed Encounters Encounter Location Date Provider Diagnosis Orestes Alex MD [address] [place] [address] Drive [address] [place] [id number] 02/13/2025 Orestes Alex Elevated liver enzym es R74.8 and Encounter for administration of vaccine Z23 Assessments Encounter Date Diagnosis (ICD Code) Assessment Notes Treatment Notes Treatment Clinical Notes Section Notes 02/13/2025 Elevated liver enzymes (ICD-10 - R74.8) 02/13/2025 Encounter for administration of vaccine (ICD-10 - Z23) Plan Of Treatment Next Appt Details Provider Name:Orestes javier, 06/25/2025 01:30:00 PM, [address] [place] [address], Suite [facility], [place], [place], [phone], Provider Name:Orestes javier, 06/26/2025 07:15:00 AM, [address] [place] [address], [address] [facility], [place], [place], [phone], Provider Name:Orestes javier, 07/03/2025 01:30:00 PM, [address] [place] [address], Suite [facility], [place], [place], [phone], Progress Notes * Delia CAT WDOB:1935 (89 yo M)Acc No.[id number]:02/13/2025 Progress Note Patient: Delia HERRERA Provider: Nicolette Alex MD :1935 A ge:89 Y S ex:Male Date:02/13/2025 Address:[address] [place] [address], [facility], [id number] Subjective: * Chief Complaints: * 1 . Liver panel. * Medical History: Objective: * Vitals: Assessment: * Assessment: 1. E ncounter for administration of vaccine - Z23 (Primary) 2 . E levated liver enzymes - R74.8 Plan: * Treatment: * Immunizations: Influenza High Dose : 0.5 mL (Dose No:1) (Route: Intramuscular) given by Liliana Chen , Office Staff on Left Deltoid * Procedure Codes: 3 6415 VENIPUNCT, ROUTINE*, 03417 FLU VACC PRSV FREE INC ANTIG, G0008 ADMN FLU VAC NO FEE SCHED SAME DAY * * The named appointment provid er may or may not be the originator of this progress note, and it is not deemed complete until electronically signed by the appointment provider. Sign off status: Pending * Provider: Nicolette Alex MD Date: 0 02/13/2025 Generated for Morelia martell/Bernardino/Reynaitting on: 1 08/06/2024 11:49 AM EST
--- OUTSIDE RECORDS SUMMARY | 2025-02-17 08:00 | XMS_ITS ---
Author Organization Orestes Alex MD Address [address] [place] [phone] Care Team Providers Care Vault Maker Name Role Phone Orestes Alex Primary Care Provider [phone] REASON FOR VISIT Repeat CXR Encounters Encounter Location Date Provider Diagnosis Orestes Alex MD [address] [place] [id number] 02/17/2025 Orestes Alex Pneumonia J18.9 Assessments Encounter [...] 2V 02/17/2025 Next Appt Details Provider Name:Orestes javier, 06/25/2025 01:30:00 PM, [address], [place], [phone], Provider Name:Orestes Linda yaya, 06/26/2025 07:15:00 AM, [address], [address], [place], [phone], Provider Name:Orestes Linda ricardor, 07/03/2025 01:30:00 PM, [address], [address], [place], [phone], Progress Notes * Delia CAT WDOB:1935 (89 yo M)Acc No.[id number]:02/17/2025 Patient: Delia HERRERA :1935 A ge:89 Y S ex:Male Address:[address] [place] [address] [place] [address] Subjective: * Chief Complaints: * R epeat CXR * Medical History: * Surgical History: * Hospitalization/Major Diagno stic Procedure: * Medications: Objective: * Vitals: * Physical Examination: Assessment: * Assessment: 1. P rosa - J18.9 Plan: * Treatment: * Procedure Codes: * true * Date: Generated for Morelia martell/Bernardino/Delia on: 08/06/2024 11:52 AM EST
--- OUTSIDE RECORDS SUMMARY | 2025-03-05 06:15 | XMS_ITS ---
Author Organization [facility] Address [address] [place] [address] Care Team Providers Care Money Laundering Investigator Name Role Phone Orestes Alex MD Primary Care Provider Xenia Rojas [phone] Encounters Encounter Location Date Provider Diagnosis [facility] [address] [place] [address] 03/05/2025 Xenia Hernández Plan Of Treatment No Information Progress Notes * Richard CAT WDOB:1935 (89 yo M)Acc No.[id number]:03/05/2025 Progress Note Patient: Richard HERRERA Provider: Sherita Hernández DPM :1935 A ge:89 Y S ex:Male Date:03/05/2025 Address:[address] [place], [place] [phone] Pcp:Orestes Alex MD Subjective: * Chief Complaints: [...] 0 03/05/2025 Generated for Juanai jasbir/Falaurieg/eTransmitting on: 1 08/06/2024 11:50 AM EST
--- OUTSIDE RECORDS SUMMARY | 2025-03-05 07:33 | XMS_ITS ---
Author Organization Orestes Alex MD Address [address] [place] [phone] Care Team Providers Care Business Controller Name Role Phone Orestes Alex Primary Care Provider Medications Medication SIG (Take, Route, Frequency, Duration) Notes Start Date End Date Status Doxycycline Hyclate 100 MG 1 capsule Ora lly Once a day for 10 day(s) 03/05/2025 Active Encounters Encounter Location Date Provider Diagnosis Orestes Alex MD [address] [place], [place] [phone] 03/05/2025 Orestes Alex Plan Of Treatment Medication Medication Name Sig Start Date Stop Date Notes Doxycycline Hyclate 100 MG 1 capsule Ora lly Once a day for 10 day(s) 03/05/2025 Next Appt Details Provider Name:Orestes javier, 06/25/2025 01:30:00 PM, [address], [address], [place], [place], [phone], Provider Name:Orestes Linda ier, 06/26/2025 07:15:00 AM, [address], [address], [place], [place], [phone], Provider Name:Orestes Linda ier, 07/03/2025 01:30:00 PM, [address], [address], [place], [phone], Progress Notes * Delia CAT WDOB:1935 (89 yo M)Acc No.[id number]:03/05/2025 Patient: Yen NOY Delia W :1935 A ge:89 Y S ex:Male Address:[address] [place] [address], [place] [address] * Refills Start Doxycycline Hyclate Capsule, 100 MG, Orally, 10, 1 capsule, Once a day, 10 day(s) * true * Date: Generated for Morelia martell/Bernardino/Zhangsmitting on: 08/06/2024 11:51 AM EST
--- OUTSIDE RECORDS SUMMARY | 2025-03-05 07:34 | XMS_ITS ---
Author Organization Orestes Alex MD Address [address] [place] [phone] Care Team Providers Care Dietetics Professor Name Role Phone Orestes Aelx Primary Care Provider Encounters Encounter Location Date Provider Diagnosis Orestes Alex MD [address] [place] [phone] 03/05/2025 Orestes Alex Plan Of Treatment Next Appt Details Provider Name:Orestes javier, 06/25/2025 01:30:00 PM, [address] [facility], [address] [facility], [place], [place], [phone], Provider Name:Orestes javier, 06/26/2025 07:15:00 AM, [address] [place] [address], [address] [facility], [place], [place], [phone], Provider Name:Orestes javier, 07/03/2025 01:30:00 PM, [address], [address], [place], [phone], Progress Notes * Delia CAT WDOB:1935 (89 yo M)Acc No.[id number]:03/05/2025 Patient: Delia HERRERA :1935 A ge:89 Y S ex:Male Address:[address] [place] [address], [place] [address] * true * Date: Generated for Morelia martell/Bernardino/eTransmitting on: 08/06/2024 11:51 AM EST
--- OUTSIDE RECORDS SUMMARY | 2025-03-24 09:00 | XMS_ITS ---
Author Organization Orestes Alex MD Address [address] [place], [place] [id number] Care Team Providers Care Ratoprinter Name Role Phone Orestes Alex Primary Care Provider Allergies No Known Allergies Results Component Value Reference Range Notes Hemoglobin A1c Reviewed date:03/24/2025 02:15:58 PM Interpretation: Performing Lab: Notes/Report: Hemoglobin A1c 6.8 Glucose, finger stick Reviewed date:03/24/2025 02:11:21 PM Interpretation: Performing Lab: Notes/Report: Value 63 REASON FOR VISIT F/U/ must XR chest Medications Medication SIG (Take, Route, Frequency, Duration) Notes Start Date End Date Status metFORMIN HCl 500 MG 1 tablet Orally twi ce a day Active SITagliptin 50 MG 1tablets Orally Once a day Active Furosemide 40 MG TAKE 1 TABLET BY ETELVINA TH EVERY DAY Active Amoxicillin 500 MG TAKE 4 CAPSULES BY M OUTH 1 HOUR BEFORE DENTAL APPOINTMENT FOR 1 DAY for 1 Active Tamsulosin HCl 0.4 MG TAKE 1 CAPSULE ONC E DAILY DIRECTED for 90 Active Levothyroxine Sodium 125 MCG TAKE 1 TABLET EVERY MORNINGON AN EMPTY STOMACH Active Atorvastatin Calcium 80 MG TAKE 1 TABLET ONCE DAILY Active Dilt-XR 180 MG TAKE 1 CAPSULE BY MO [facility] EVERY DAY for 30 Active Metoprolol Succinate ER 25 MG 1 tablet Orally Once a day Active Eliquis 5 MG TAKE 1 TABLET TWICE A DAY Active Accu-Chek Suzanne Plus 0 DIRECTED DAILY IN VITRO 90 Active FreeStyle Lite Test - USE TO TEST BLOOD SUGAR FOUR TIMES DAILY for 100 Active FreeStyle Lancets - USE TO TEST BLOOD SAINZ GAR FOUR TIMES DAILY for 90 Active FeroSul 325 (65 Fe) MG TAKE 1 TABLET BY MOUTH EVERY DAY Orally for 90 days Active Vital Signs Blood pressure systolic 92 mm Hg 03/24/20 25 Blood pressure diastolic 58 mm Hg 025 Height 67 in 03/24/2025 Weight 155 lbs 03/24/2025 BMI 24.27 kg/m2 03/24/2025 weight is down 5 pounds [facility] 01-20-25 Encounters Encounter Location Date Provider Diagnosis Orestes Alex MD [address] [place] [phone] 03/24/2025 Orestes Alex Type 2 diabetes mellitus without complication E11.9 and CHF (congestive heart failure) I50.9 Assessments Encounter Date Diagnosis (ICD Code) Assessment Notes Treatment Notes Treatment Clinical Notes Section Notes 03/24/2025 Type 2 diabetes mellitus without complication (ICD-10 - E11.9) patient verbalized understanding of instructions to dc medication 03/24/2025 CHF (congestive heart failure) (ICD-10 - I50.9) stable, will cntinue current regiment and oxygen at home Plan Of Treatment Medication Medication Name Sig Start Date Stop Date Notes Furosemide 40 MG TAKE 1 TABLET BY MOUTH EVERY DAY glipiZIDE 5 MG TAKE 1 TABLET ONCE D AILY 30MINUTES BEFORE BREAKFAST Treatment Notes Assessment Notes Type 2 diabetes mellitus wit hout complication patient verbalized understanding of instructions to dc medication CHF (congestive heart failure) stable, w ill cntinue current regiment and oxygen at home Next Appt Details Follow Up: 2 Months, Reason: Provider Name:Orestes javier, 06/25/2025 01:30:00 PM, [address], [address], [place], [place], [phone], Provider Name:Orestes Linda ier, 06/26/2025 07:15:00 AM, [address], [address], [place], [phone], Provider Name:Orestes Linda ier, 07/03/2025 01:30:00 PM, [address], [address], [place], [place], [phone], Progress Notes * Delia CAT WDOB:1935 (89 yo M)Acc No.[id number]:03/24/2025 Patient: Delia HERRERA Provider: Nicolette Alex MD :1935 A ge:89 Y S ex:Male Date:03/24/2025 Address:[address] [place] [address], [facility] [place], [id number] Subjective: * Chief Complaints: * F /U/ must XR chest * HPI: S ymptom(s): patient is a 89 yo male here for follow up visit/ using oxygen at home but not able to bring it outside. * ROS: G eneral/Constitutional: Denies C hills. D enies F atigue. D enies F ever. D enies H eadache. E NT: Denies S ore throat. E ndocrine: Denies D ifficulty sleeping. D enies D izziness.?Denies E xcessive sweating. D enies E xcessive thirst. R espiratory: Denies C ough. D enies [...] TO TEST BLOOD SUGAR FOUR TIMES DAILY FeroSul 325 (65 Fe) MG Tablet TAKE [...] TAKE 1 CAPSULE BY MOUTH EVERY DAY Furosemide 40 MG Tablet TAKE 1 TABLET BY MOUTH EVERY DAY metFORMIN HCl 500 MG Tablet 1 tablet Orally twice a day glipiZIDE 5 MG Tablet TAKE 1 TABLET ONCE DAILY 30MINUTES BEFORE BREAKFAST SITagliptin 50 MG Tablet 1tablets Orally Once a day Amoxicillin 500 MG Capsule TAKE 4 CAPSULES BY MOUTH 1 HOUR BEFORE DENTAL APPOINTMENT FOR 1 DAY Tamsulosin HCl 0.4 MG Capsule TAKE 1 CAPSULE ONCE DAILY DIRECTED Medication List reviewed and reconciled with the patientTaking Accu-Chek Suzanne Plus 0 Strip DIRECTED DAILY IN VITRO 90 Taking FreeStyle Lite Test - Strip USE TO TEST BLOOD SUGAR FOUR TIMES DAILY Taking FreeStyle Lancets - Miscellaneous USE TO TEST BLOOD SUGAR FOUR TIMES DAILY Taking FeroSul 325 (65 Fe) MG Tablet [...] 1 CAPSULE BY MOUTH EVERY DAY Taking Furosemide 40 MG Tablet TAKE 1 TABLET BY MOUTH EVERY DAY Taking metFORMIN HCl 500 MG Tablet 1 tablet Orally twice a day Taking glipiZIDE 5 MG Tablet TAKE 1 TABLET ONCE DAILY 30MINUTES BEFORE BREAKFAST Taking SITagliptin 50 MG Tablet 1tablets Orally Once a day Taking Amoxicillin 500 MG Capsule TAKE 4 CAPSULES BY MOUTH 1 HOUR BEFORE DENTAL APPOINTMENT FOR 1 DAY Taking Tamsulosin HCl 0.4 MG Capsule TAKE 1 CAPSULE ONCE DAILY DIRECTED Medication List reviewed and reconciled with the patient * Allergies: N .K.D.A.yes[Allergies Verified] Objective: * Vitals: H t: 67, Wt: 155, BMI:24.27, BP:92/58, Wt-k.31. weight is down 5 pounds since 01-20-25. * Examination: G eneral Examination: GENERAL APPEARANCE: a lert, well hydrated, in no distress.? HEAD: n ormocephalic. SKIN: g ood turgor. HEART: n o murmurs, rubs, gallops, regular rate and rhythm.? LUNGS: n o wheezes, rales, rhonchi, good air movement, clear to auscultation bilaterally. Assessment: * Assessment: 1. T ype 2 diabetes mellitus without complication - E11.9 (Primary) 2 . C HF (congestive heart failure) - I50.9 Plan: * Treatment: Value Reference Range H emoglobin A1c 6.8 ?LAB: Glucose, finger stick (Collection Date & Time - 03/24/2025)* Value Reference Range V alue 63 Notes: patient verbalized understanding of instructions to dc medication??2.?CHF (congestive heart failure)? Notes: stable, will cntinue current regiment and oxygen at home?? * Procedure Codes: 8 2947 ASSAY, GLUCOSE, BLOOD QUANT, Modifiers: QW 76770 GLYCATED HEMOGLOBIN TEST, Modifiers: QW G2211 Complex e/m visit add on * Follow Up: 2 Months * * Sign off status: Completed true * Provider: Nicolette Alex MD Date: 1 Generated for Morelia martell/Bernardino/Reynaitting on: 08/06/2024 11:50 AM EST History and Physical Notes * HPI (History of Present Illness) Category Sub-Category Detail Notes Category Not es Symptom(s) patient is a 89 yo male here for follow up visit/ using oxygen at home but not able to bring it outside Examination Category Sub-Category Detail Notes Category Not es General Examination GENERAL APPEARANCE: alert, w ell hydrated, in no distress HEAD: normocephalic HEART: no murmurs, rubs, ga llops, regular rate and rhythm LUNGS: no wheezes, rales, r honchi, good air movement, clear to auscultation bilaterally SKIN: good turgor
--- OUTSIDE RECORDS SUMMARY | 2025-04-13 10:30 | XMS_ITS ---
Author Organization [facility] Address [address] [facility] [place] [address] Care Team Providers Care Sales Agent Casualty Insurance Name Role Phone Isai DAVILA, Orestes Primary Care Provider Xenia Rojas Unavailable [phone] Medications Medication SIG (Take, Route, Frequency, Duration) [...] Active Encounters Encounter Location Date Provider Diagnosis [facility] [place] [address] [place] [address] 04/13/2025 Xenia Hernández Plan Of Treatment No Information Progress Notes * Richard CAT WDOB:1935 (89 yo M)Acc No.[id number]:04/13/2025 Progress Note Patient: Richard HERRERA Provider: Sherita Hernández DPM :1935 A ge:89 Y S ex:Male Date:04/13/2025 Address:[address] [place] [address] , [id number] Pcp:Orestes Alex MD Subjective: * Chief Complaints: * * HPI: A t Risk footcare: Pt States Last PCP Visit: D ate: 0 10/30/2024 * Medical History: * Medications: [...] Hernández DPM Date: 06/13/2024 Generated for Morelia Tucker/Delia on: 08/06/2024 11:50 AM EST History and Physical Notes * HPI (History of Present Illness) Category Sub-Category Detail Notes Category Not es At Risk footcare Pt States Last PCP Visit: Date:: 10/31/19 25
--- OUTSIDE RECORDS SUMMARY | 2025-05-15 09:15 | XMS_ITS ---
Author Organization Orestes Alex MD Address [address] [place] [phone] Care Team Providers Care Floor Polisher Name Role Phone Orestes Alex Primary Care Provider [phone] REASON FOR VISIT Discharge summary rec'd Encounters Encounter Location Date Provider Diagnosis Orestes Alex MD [address] [place] [address] [place] [phone] 05/15/2025 Orestes Alex Plan Of Treatment Next Appt Details Provider Name:Orestes javier, 06/25/2025 01:30:00 PM, [address] [place] [address], Suite [facility], [place], [place], [phone], Provider Name:Orestes javier, 06/26/2025 07:15:00 AM, [address] [place] [address], Suite [facility], [place], [place], [phone], Provider Name:Orestes javier, 07/03/2025 01:30:00 PM, [address], [address], [place], [phone], Progress Notes * Delia CAT WDOB:1935 (89 yo M)Acc No.[id number]:05/15/2025 Patient: Delia HERRERA :1935 A ge:89 Y S ex:Male Address:[address] [place] [address], [place] [address] * true * Date: Generated for Morelia martell/Bernardino/eTransmitting on: 08/06/2024 11:50 AM EST
--- OUTSIDE RECORDS SUMMARY | 2025-05-28 08:45 | XMS_ITS ---
Author Organization Orestes Alex MD Address [address] [place], [place] [id number] Care Team Providers Care Court Liaison Name Role Phone Orestes Alex Primary Care Provider Allergies No Known Allergies Results Component Value Reference Range Notes Glucose, finger stick Reviewed date:05/28/2025 01:50:26 PM Interpretation: Performing Lab: Notes/Report: Value 176 REASON FOR VISIT 2 month and PH/TCM, Accompanied by son Medications Medication SIG (Take, Route, Frequency, Duration) Notes Start Date End Date Status Farxiga 5 MG 1 tablet Orally Once a day for 90 days 05/28/2025 Active metFORMIN HCl 500 MG 1 tab Orally Twice a day for 90 days Active Furosemide 40 MG TAKE 1 TABLET BY ETELVINA TH EVERY DAY Active Dilt-XR 180 MG 1 capsule in the mor delores on an empty stomach Orally Once a day for 30 days Active Tamsulosin HCl 0.4 MG TAKE 1 CAPSULE ONC E DAILY DIRECTED for 90 Active Metoprolol Succinate ER 25 MG 1 tablet Orally Once a day Active Amoxicillin 500 MG TAKE 4 CAPSULES BY M OUTH 1 HOUR BEFORE DENTAL APPOINTMENT FOR 1 DAY for 1 Active Atorvastatin Calcium 80 MG TAKE 1 TABLET ONCE DAILY Active SITagliptin 50 MG 1tablets Orally Once a day Active Eliquis 5 MG TAKE 1 TABLET TWICE A DAY Active FreeStyle Lancets - USE TO TEST BLOOD SAINZ GAR FOUR TIMES DAILY for 90 Active FeroSul 325 (65 Fe) MG TAKE 1 TABLET BY MOUTH EVERY DAY Orally for 90 days Active Accu-Chek Suzanne Plus 0 DIRECTED DAILY IN VITRO 90 Active FreeStyle Lite Test - USE TO TEST BLOOD SUGAR FOUR TIMES DAILY for 100 Active Levothyroxine Sodium 125 MCG TAKE 1 TABLET EVERY MORNINGON AN EMPTY STOMACH Orally Once a day for 90 days Active Vital Signs Blood pressure systolic 102 mm Hg 05/28/20 25 Blood pressure diastolic 50 mm Hg 025 Height 67 in 05/28/2025 Weight 148 lbs 05/28/2025 BMI 23.18 kg/m2 05/28/2025 weight is down 7 pounds [facility] 03-24-25 Encounters Encounter Location Date Provider Diagnosis Orestes Alex MD [address] [place] [phone] 05/28/2025 Orestes Alex Type 2 diabetes mellitus without complication E11.9 Assessments Encounter Date Diagnosis (ICD Code) Assessment Notes Treatment Notes Treatment Clinical Notes Section Notes 05/28/2025 Type 2 diabetes mellitus without complication (ICD-10 - E11.9) to restart the ;metformin at 2 pills twice a day and stop the insuling, patient/caregiver verbalized undertsnading of medication and directions for use Plan Of Treatment Medication Medication Name Sig Start Date Stop Date Notes Farxiga 5 MG 1 tablet Orally Once a day for 90 days 05/28/2025 Levothyroxine Sodium 125 MCG TAKE 1 TABL ET EVERY MORNINGON AN EMPTY STOMACH Orally Once a day for 90 days Treatment Notes Assessment Notes Type 2 diabetes mellitus wit hout complication to restart the ;metformin at 2 pills twi ce a day and stop the insuling, patient/caregiver verbalized undertsnading of medication and directions for use Next Appt Details Follow Up: 4 Weeks, Reason: Provider Name:Orestes javier, 06/25/2025 01:30:00 PM, [address], [address], [place], [place], [phone], Provider Name:Orestes Linda ier, 06/26/2025 07:15:00 AM, [address], [address], [place], [phone], Provider Name:Orestes Linda ier, 07/03/2025 01:30:00 PM, [address], [address], [place], [phone], Progress Notes * Delia CAT WDOB:1935 (89 yo M)Acc No.[id number]:05/28/2025 Progress Notes Patient: Delia HERRERA Provider: Nicolette Alex MD :1935 A ge:89 Y S ex:Male Date:05/28/2025 Address:[address] [place] [address], [facility] [place], [id number] Subjective: * Chief Complaints: * 2 month and PH/TCMAccompanied by son * HPI: S ymptom(s): patient is a 89 yo male here for transitinal care managemeks visit following recent discharge, summary has been reviewed and medications reconcilled/ fell twice and went to hospital started on insulin. * ROS: G eneral/Constitutional: Denies [place]. [...] Hour 1 tablet Orally Once a day Levothyroxine Sodium 125 MCG Tablet TAKE 1 TABLET EVERY MORNINGON AN EMPTY STOMACH Eliquis 5 MG Tablet TAKE 1 TABLET TWICE A DAY Atorvastatin Calcium 80 MG Tablet TAKE 1 TABLET ONCE DAILY SITagliptin 50 MG Tablet 1tablets Orally Once a day Amoxicillin 500 MG Capsule TAKE 4 CAPSULES BY MOUTH 1 HOUR BEFORE DENTAL APPOINTMENT FOR 1 DAY Tamsulosin HCl 0.4 MG Capsule TAKE 1 CAPSULE ONCE DAILY DIRECTED Furosemide 40 MG Tablet TAKE 1 TABLET BY MOUTH EVERY DAY Dilt-XR 180 MG Capsule Extended Release 24 Hour 1 capsule in the morning on an empty stomach Orally Once a day metFORMIN HCl 500 MG Tablet 1 tab Orally Twice a day Medication List reviewed and reconciled [...] 1 tablet Orally Once a day Taking Levothyroxine Sodium 125 MCG Tablet TAKE 1 TABLET EVERY MORNINGON AN EMPTY STOMACH Taking Eliquis 5 MG Tablet TAKE 1 TABLET TWICE A DAY Taking Atorvastatin Calcium 80 MG Tablet TAKE 1 TABLET ONCE DAILY Taking SITagliptin 50 MG Tablet 1tablets Orally Once a day Taking Amoxicillin 500 MG Capsule TAKE 4 CAPSULES BY MOUTH 1 HOUR BEFORE DENTAL APPOINTMENT FOR 1 DAY Taking Tamsulosin HCl 0.4 MG Capsule TAKE 1 CAPSULE ONCE DAILY DIRECTED Taking Furosemide 40 MG Tablet TAKE 1 TABLET BY MOUTH EVERY DAY Taking Dilt-XR 180 MG Capsule Extended Release 24 Hour 1 capsule in the morning on an empty stomach Orally Once a day Taking metFORMIN HCl 500 MG Tablet 1 tab Orally Twice a day Medication List reviewed and reconciled with the patient * Allergies: N .K.D.A.yes[Allergies Verified] Objective: * Vitals: H t: 67, Wt: 148, BMI:23.18, BP:102/50, Wt-k.13. weight is down 7 pounds since 03-24-25. * Examination: G eneral Examination: GENERAL APPEARANCE: a lert, well hydrated, in no distress.? HEAD: n ormocephalic. SKIN: g ood turgor. HEART: r egular rate and rhythm, no murmurs, rubs, gallops.? LUNGS: n o wheezes, rales, rhonchi, good air movement, clear to auscultation bilaterally. Assessment: * Assessment: 1. T ype 2 diabetes mellitus without complication - E11.9 (Primary) Plan: * Treatment: Value Reference Range V alue 176 Notes: to restart the ;metformin at 2 pills twice a day and stop the insuling, patient/caregiver verbalized undertsnading of medication and directions for use?? * Procedure Codes: 8 [id number] ASSAY, GLUCOSE, BLOOD QUANT, Modifiers: QW * Follow Up: 4 Weeks * * Sign off status: Completed true * Provider: Nicolette Alex MD Date: 07/29/2024 Generated for Morelia martell/Bernardino/Reynaitting on: 08/06/2024 11:49 AM EST History and Physical Notes * HPI (History of Present Illness) Category Sub-Category Detail Notes Category Not es Symptom(s) patient is a 89 yo male here for transitinal care managemeks visit following recent discharge, summary has been reviewed and medications reconcilled/ fell twice and went to hospital started on insulin. Examination Category Sub-Category Detail Notes Category Not es General Examination GENERAL APPEARANCE: alert, w ell hydrated, in no distress HEAD: normocephalic HEART: regular rate and rhy thm, no murmurs, rubs, gallops LUNGS: no wheezes, rales, r honchi, good air movement, clear to auscultation bilaterally SKIN: good turgor
--- NOTE | ~2025-06-05 | XR_ITS ---
CLINICAL HISTORY: wheezing 1 view chest x-ray Comparison: CR/SR - XR CHEST 1V - 04/30/25 04:21 EST Findings: There are trace bilateral pleural effusions. No focal airspace consolidation or pneumothorax. There is a background of chronic age related interstitial lung changes Heart size is normal. No acute fracture. IMPRESSION: Trace bilateral pleural effusions. This document has been electronically signed by: Ney Tao MD on 06/10/2025 03:02:02
--- NOTE | 2025-06-05 10:32 | ECG_ITS ---
Test Reason : WEAKNESS Blood Pressure : */* mmHG Vent. Rate : 78 BPM Atrial Rate : 234 BPM P-R Int : * ms QRS Dur : 124 ms QT Int : 410 ms P-R-T Axes : * -45 45 degrees QTcB Int : 467 ms Atrial flutter with variable A-V block Left anterior fascicular block Minimal voltage criteria for LVH, may be normal variant ( Erick product ) Abnormal ECG When compared with ECG of 29-Apr-2025 21:24, Poor quality on prior EKG precludes serial comparison Referred By: Brayan Aguilera Electronically Signed By: WINTER PACE MD
[2025-06-05 10:57] VITALS: BP 138/53; BP 139/58; PULSE 72; PULSE 82; RESP 18; TEMP 36.6; O2SAT 92; O2SAT 96; BMI 22.1
[2025-06-05 11:26] LABS: MANUAL DIFF FLAG NO
[2025-06-05 11:34] LABS: Hematocrit 30.1 % (42.0-52.0); Hemoglobin 10.2 g/dl (14.0-18.0); Imm Gran Abs Auto 0.07 X10*3/uL (0.00-0.03); Imm Gran Pct Auto 1.0 % (0.0-0.4); Lymphocytes Absolute Auto 1.2 X10*3/uL (1.2-4.9); Mean Corpuscular HGB Conc 33.9 g/dl (31.0-36.0); Mean Corpuscular Hemoglobin 34.3 pg (27.0-33.0); Mean Corpuscular Volume 101.3 fL (80.0-98.0); NRBC Abs Auto 0.000 X10*3/uL (0.0-0.012); NRBC Pct Auto 0.0 /100WBC (0.0-0.2); Platelet Count 142 X10*3/uL (160-400); Red Blood Count 2.97 X10*6/uL (4.60-5.80); White Blood Count 7.3 X10*3/uL (4.8-10.8)
[2025-06-05 11:40] LABS: Alanine Aminotransferase 27 U/L (0-40); Albumin Level 3.6 g/dL (3.5-5.0); Alkaline Phosphatase 138 U/L (39-117); Anion Gap 15 (12-20); Aspartate Amino Transferase 28 U/L (5-37); Blood Urea Nitrogen 51 mg/dL (9-16); Calcium 8.9 mg/dL (8.4-10.2); Carbon Dioxide 17 mmol/L (22-29); Chloride 106 mmol/L (96-108); Creatinine Clr Calc Pharmacy 26.9; Estimated Glomerular Filt Rate 35; Potassium 4.6 mmol/L (3.3-5.1); Sodium 133 mmol/L (135-145); Total Protein 6.3 g/dL (6.5-8.0)
[2025-06-05 11:47] LABS: Troponin-I High Sensitivity 10.5 ng/L (<3.5-35.0)
--- OUTSIDE RECORDS SUMMARY | 2025-06-05 11:51 | XMS_ITS | Encounter Summary ---
Author Organization [facility] Address [address] [place] [address] Care Team Providers Care Corporate Communications Specialist Name Role Phone Evgeny Perry MD Primary Care Provider [phone] Encounter Details Date Type Department Care Team (Late st Contact Info) Description 05/04/2025 Lab Requisition [facility] - Main Lab [address] [place] [address] Evgeny Perry MD [address] [place], [place] [id number] Type 2 diabetes mellitus without complications (CMS/HCC V24, CMS/HCC V28); Essential (primary) hypertension; Vitamin D deficiency, unspecified; Iron deficiency Social History Tobacco Use Types Packs/Day Years Used Date Smoking Tobacco: Never Assessed Sex and Gender Information Value Date Recorded Sex Assigned at Not on file Legal Sex Male 3:42 PM EDT Gender Identity Not on file Sexual Orientation Not on file documented as of this encounter Plan of Treatment Not on file documented as of this encounter Procedures Procedure Name Priority Date/Time Associated Diagnosis Comments VITAMIN D 25 HYDROXY Routine 05/04/2025 8:32 AM EST Type 2 diabetes mellitus without complications (CMS/HCC V24, CMS/HCC V28) Essential (primary) hypertension Vitamin D deficiency, unspecified Iron deficiency COMPLETE BLOOD COUNT Routine 05/04/2025 8:32 AM EST Type 2 diabetes mellitus without complications (CMS/HCC V24, CMS/HCC V28) Essential (primary) hypertension Vitamin D deficiency, unspecified Iron deficiency IRON Routine 05/04/2025 8:32 AM EST Type 2 diabetes mellitus without complications (CMS/HCC V24, CMS/HCC V28) Essential (primary) hypertension Vitamin D deficiency, unspecified Iron deficiency HEMOGLOBIN A1C Routine 05/04/2025 8:32 AM EST Type 2 diabetes mellitus without complications ([facility] V24, [facility] V28) Essential (primary) hypertension Vitamin D deficiency, unspecified Iron deficiency COMPREHENSIVE METABOLIC PANEL Routine 05/04/2025 8:32 AM EST Type 2 diabetes mellitus without complications ([facility] V24, [facility] V28) Essential (primary) hypertension Vitamin D deficiency, unspecified Iron deficiency documented in this encounter Results * Vitamin D 25 hydroxy (05/04/2025 8:32 AM EST) Vit D, 25-Hydroxy 64.7 30.0 - 80.0 ng/mL 05/04/2025 11:29 AM EST [facility] Blood Venous blood specimen / Unknown Venipuncture / Unknown 05/04/2025 8:32 AM EST 05/04/2025 10:41 AM EST us Evgeny Perry MD LAB BLOOD ORDERABLES Final Resul t Performing Organization Address City/[facility]/ZIP Co de Phone Number [facility] [address] [place] [address], [place] [phone] * Iron (05/04/2025 8:32 AM EST) Iron 54 50 - 160 mcg/dL 05/04/2025 11:32 AM EST [facility] Blood Venous blood specimen / Unknown Venipuncture / Unknown 05/04/2025 8:32 AM EST 05/04/2025 10:41 AM EST us Evgeny Perry MD LAB BLOOD ORDERABLES Final Resul t Performing Organization Address City/[facility]/ZIP Co de Phone Number [facility] [address] [place] [address], [place] [phone] * (ABNORMAL) Comprehensive metabolic panel (05/04/2025 8:32 AM [facility]) Sodium 135 133 - 145 mmol/L 05/04/2025 11:[address] [facility] Potassium 3.9 3.5 - 5.5 mmol/L 05/04/2025 11:[address] [facility] Chloride 98 96 - 110 mmol/L 05/04/2025 11:[address] [facility] CO2 27 21 - 32 mmol/L 05/04/2025 11:[address] [facility] Anion Gap 10 3 - 11 05/04/2025 11:[address] [facility] Glucose 197(H) 70 - 100 mg/dL 05/04/2025 11:[address] [facility] BUN 29(H) 5 - 25 mg/dL 05/04/2025 11:[address] [facility] Creatinine 1.16 0.70 - 1.30 mg/dL 05/04/2025 11:[address] [facility] eGFR 60 >=60 mL/min/1. 73m2 05/04/2025 11:[address] [facility] Comment:Calculation based on the Chronic Kidney Disease Epidemiology Collaboration (CKD-EPI) equation refit without adjustment for race. BUN/Creatinine Ratio 25.0 05/04/2025 11:[address] [facility] Calcium 8.3(L) 8.5 - 10.5 mg/dL 05/04/2025 11:[address] [facility] AST (SGOT) 54(H) 10 - 42 unit/L 05/04/2025 11:[address] [facility] ALT (SGPT) 53 10 - 60 unit/L 05/04/2025 11:[address] [facility] Alkaline Phosphatase 205(H) 42 - 121 unit/L 05/04/2025 11:[address] [facility] Total Protein 6.2 6.0 - 8.0 g/dL 05/04/2025 11:[address] [facility] Albumin 3.2 3.2 - 5.0 g/dL 05/04/2025 11:[address] [facility] Total Bilirubin 0.8 0.0 - 1.4 mg/dL 05/04/2025 11:[address] [facility] Blood Venous blood specimen / Unknown Venipuncture / Unknown 05/04/2025 8:32 AM EST 05/04/2025 10:41 AM EST Evgeny Perry MD LAB BLOOD ORDERABLES Final Resul t [facility] [address] [place] [address], * (ABNORMAL) Complete blood count (05/04/2025 8:32 AM EST) WBC 9.3 4.8 - 10.8 K/mcL LAB HEMETOLOGY METHOD 05/04/2025 10:[address] [facility] RBC 4.10(L) 4.50 - 5.50 M/mcL LAB HEMETOLOGY METHOD 05/04/2025 10:[address] [facility] Hemoglobin 13.7 13.5 - 17.5 g/dL LAB HEMETOLOGY METHOD 05/04/2025 10:[address] [facility] Hematocrit 39.7(L) 42.0 - 54.0 % LAB HEMETOLOGY METHOD 05/04/2025 10:[address] [facility] MCV 97.3 79.0 - 98.0 FL LAB HEMETOLOGY METHOD 05/04/2025 10:[address] [facility] MCH 33.6(H) 27.0 - 32.0 pcg LAB HEMETOLOGY METHOD 05/04/2025 10:56 AM EST [facility] MCHC 34.5 32.0 - 37.0 g/dL LAB HEMETOLOGY METHOD 05/04/2025 10:56 AM EST [facility] RDW 14.1 11.0 - 15.0 % LAB HEMETOLOGY METHOD 05/04/2025 10:[address] [facility] Platelets 140 130 - 400 K/mcL LAB HEMETOLOGY METHOD 05/04/2025 10:[address] [facility] MPV 10.9 7.0 - 11.0 FL LAB HEMETOLOGY METHOD 05/04/2025 10:[address] [facility] NRBC 0.0 <1.0 % LAB HEMETOLOGY METHOD 05/04/2025 10:[address] [facility] NRBC Absolute 0.00 <0.10 K/mcL LAB HEMETOLOGY METHOD 05/04/2025 10:[address] [facility] Blood Venous blood specimen / Unknown Venipuncture / Unknown 05/04/2025 8:32 AM EST 05/04/2025 10:41 AM EST us Evgeny Perry MD LAB BLOOD ORDERABLES Final Resul t [facility] [address] [place] [address], * (ABNORMAL) Hemoglobin A1c (05/04/2025 8:32 AM EST) Hemoglobin A1C 11.4(H) <6.5 % LAB CHEMISTRY METHOD 05/04/2025 3:24 PM EST [facility] Mean Bld Glu Estim. 280 mg/dL LAB CHEMISTRY METHOD 05/04/2025 3:[address] [facility] Blood Venous blood specimen / Unknown Venipuncture / Unknown 05/04/2025 8:32 AM EST 05/04/2025 10:41 AM EST Evgeny Perry MD LAB BLOOD ORDERABLES Final Resul t [facility] ([facility]) [facility] [address] [place] [address], documented in this encounter Visit Diagnoses Diagnosis Type 2 diabetes mellitus without complications (CMS/HCC V24, CMS/HCC V28) Essential (primary) hypertension Unspecified essential hypertension Vitamin D deficiency, unspecified Iron deficiency Disorders of iron metabolism documented in this encounter Care Teams Corporate Communications Specialist Relationship Specialty Start Date End Date Evgeny Perry MD [address] [place] [address] [address] [place] [address] PCP - General Geriatric Medicine 05/04/25 documented as of this encounter
--- OUTSIDE RECORDS SUMMARY | 2025-06-05 11:51 | XMS_ITS | Patient Health Record ---
Author Organization [facility] Address [address] [place] [address] Care Team Providers Care Jewelry Inspector Name Role Phone Orestes Alex MD Primary Care Provider Yakelin Hernández, Xenia Unavailable [phone] Allergies Allergen (clinical drug ingredient) Drug/Non Drug [...] Problem Type II diabetes mellitus without complication (259643077) Type 2 diabetes mellitus without complications (E11.9) Active confirmed Vital Signs Blood pressure diastolic 67 mm Hg 12/04/2024 Height 5 ft 10 in in 12/04/2024 Blood pressure systolic 155 mm Hg 12/04/2024 Weight 147 lbs 12/04/2024 BMI 21.09 kg/m2 12/04/2024 Procedures Procedure Date Ordered Date Performed Result Body Sit e 90929-JOWNLKH NAIL, 6 OR MORE 12/04/2024 N/A Encounters Encounter Location Date Provider Diagnosis [facility] [address] 12/04/2024 Xenia Hernández Tinea unguium B35.1 ; Type 2 diabetes mellitus without complications E11.9 ; Pain in right toe(s) M79.674 and Pain in left toe(s) M79.[address] [address] 12/04/2024 Xenia Hernández [facility] [address] 01/26/2025 Xenia Hernández [address] [address] 04/13/2025 Xenia Hernández Assessments Encounter Date Diagnosis (ICD Code) Assessment Notes Treatment Notes Treatment Clinical Notes Section Notes 12/04/2024 Tinea unguium (ICD-10 - B35.1) 12/04/2024 Type 2 diabetes mellitus without complications (ICD-10 - E11.9) 12/04/2024 Pain in right toe(s) (ICD-10 - M79.674) 12/04/2024 Pain in left toe(s) (ICD-10 - M79.675) Plan Of Treatment Pending Test Test Name Order Date *Uric Acid, Serum 02/26/2013 [facility], right 3V 02/26/2013 12379-LCXVGYO NAIL, 6 OR MORE 04/30/2017 75190-XDUGYRD NAIL, 6 OR MORE 06/18/2017 76616-HMGHSEE NAIL, 6 OR MORE 02/28/2018 97224-TYVEDWL NAIL, 6 OR MORE 05/27/2018 60494-RNFLMVF NAIL, 6 OR MORE 08/26/2018 19084-MGRACTF NAIL, 6 OR MORE 11/14/2018 76417-QFONTKV NAIL, 6 OR MORE 02/13/2019 88606-RXRNOKG NAIL, 6 OR MORE 05/19/2019 25112-PABJAAG NAIL, 6 OR MORE 10/16/2019 10707-ORAICVT NAIL, 6 OR MORE 01/22/2020 31243-QBKZAGQ NAIL, 6 OR MORE 04/26/2020 46159-DWEGWVF NAIL, 6 OR MORE 08/02/2020 73773-CSRGINR NAIL, 6 OR MORE 10/28/2020 00001-QZITSXW NAIL, 6 OR MORE 01/27/2021 38036-UMWUPTB NAIL, 6 OR MORE 05/09/2021 49198-SVBJMMC NAIL, 6 OR MORE 08/25/2021 35834-AIUKSFA NAIL, 6 OR MORE 03/09/2022 03671-FDODRIX NAIL, 6 OR MORE 06/22/2022 38591-LEXZCJL NAIL, 6 OR MORE 10/23/2022 95164-KDBGZHB NAIL, 6 OR MORE 11/28/2021 42727-ZMYTZSO NAIL, 6 OR MORE 02/22/2023 50343-AEIEDHQ NAIL, 6 OR MORE 07/19/2023 42432-ZENTPGA NAIL, 6 OR MORE 10/25/2023 84942-NQVQTWY NAIL, 6 OR MORE 02/14/2024 75012-WWWNWFX NAIL, 6 OR MORE 05/26/2024 77504-YTHBKVE NAIL, 6 OR MORE 12/04/2024 96585-Qmdcpcts Plate 05/26/2024 12840-Ncuxibqe Plate 10/25/2023 80988-Iqwfbnme Plate 07/19/2023 07157-Vdjdwvsf Plate 02/22/2023 61288-Ugxlefio Plate 11/28/2021 82808-Lmukfnmj Plate 08/25/2021 05734-Pwudxbgq Plate 10/28/2020 89429-Egbqznur Plate Each Additional 75826 I&D ABSCESS- SIMPLE,SINGLE 022 76293 I&D ABSCESS- SIMPLE,SINGLE 021 35189 I&D ABSCESS- SIMPLE,SINGLE 021 07312-Ddxt. Subungual Hematoma 9 Nail Panel 04/30/2017 Insurance Providers Payer Name Payer Address Payer Phone Subscriber Number Group Number Insured Name Patient Relationship to Insured Coverage Start Date Coverage End Date Medicare National [employer] [address] [place] [address] [id number] Richard Chávez Self - patient is the insured 1 [facility] [address] [place] [address] [id number] Richard Chávez Self - patient is the [...]
--- OUTSIDE RECORDS SUMMARY | 2025-06-05 11:51 | XMS_ITS | Clinical Summary ---
Author Organization [address] [facility] Address [address] [place] [address] Phone Care Team Providers Care Project Crew Worker Name Role Phone Evgeny Perry MD Primary Care Provider [phone] Encounters Date Type Department Care Team Description 05/04/2025 Lab Requisition [facility] [address] [place] [address] Evgeny Perry MD Type 2 diabetes mellitus without complications (CMS/HCC V24, CMS/HCC V28); Essential (primary) hypertension; Vitamin D deficiency, unspecified; Iron deficiency 05/04/2025 Lab Requisition [facility] [address] [place] [id number] Evgeny Perry MD Painful micturition, unspecified from Last 3 Months Social History Tobacco Use Types Packs/Day Years Used Date Smoking Tobacco: Never Assessed Sex and Gender Information Value Date Recorded Sex Assigned at Not on file Legal Sex Male 3:42 PM EDT Gender Identity Not on file Sexual Orientation Not on file Plan of Treatment Health Maintenance Due Date Last Done Comments Diabetes: Annual Foot Exam 08/20/1945 Diabetes: Annual Retina Eye Exam 08/20/1945 DTaP,Tdap,and Td Vaccines (1 - Tdap) 08/20/1954 Pneumococcal Vaccine: 50+ Ye ars (1 of 2 - PCV) 08/20/1954 Zoster Vaccines (1 of 2) 08/20/1985 RSV Immunization Adult Patie nts (1 - 1-dose 75+ series) 08/20/2010 Cholesterol Screening (Lipid Panel) 03/19/2024 Falls Risk Assessment 03/19/2024 Medicare Annual Wellness Visit 03/19/2024 Social Influencers of Health Screening 03/19/2024 Depression Screening 06/11/2024 COVID-19 Vaccine (2024-2 6 season) 2025 Influenza Vaccine (#1) 2025 Diabetes: Blood Sugar Contro l Test (HGBA1C) 11/01/2025 05/04/2025 Hypertension/CHF/CAD Annual BMP Blood Test 05/04/2026 05/04/2025 HIB Vaccines Aged Out No longer eligi ble based on patient's age to complete this topic HPV Vaccines Aged Out No longer eligi ble based on patient's age to complete this topic Hepatitis A Vaccines Aged Out No long er eligible based on patient's age to complete this topic Hepatitis B Vaccines Aged Out No long er eligible based on patient's age to complete this topic IPV Vaccines Aged Out No longer eligi ble based on patient's age to complete this topic MMR Vaccines Aged Out No longer eligi ble based on patient's age to complete this topic Meningococcal ACWY Vaccine Aged Out N o longer eligible based on patient's age to complete this topic Meningococcal B Vaccine Aged Out No l onger eligible based on patient's age to complete this topic RSV Immunization Patients Un [place] 20 months Aged Out No longer eligible b ased on patient's age to complete this topic Varicella Vaccines Aged Out No longer eligible based on patient's age to complete this topic Procedures Procedure Name Priority Date/Time Associated Diagnosis Comments VITAMIN D 25 HYDROXY Routine 05/04/2025 8:32 AM EST Type 2 diabetes mellitus without complications ([facility]/HCC V24, CMS/HCC V28) Essential (primary) hypertension Vitamin [...] EST Type 2 diabetes mellitus without complications ([facility] V24, [facility] V28) Essential (primary) hypertension Vitamin D deficiency, unspecified Iron deficiency URINALYSIS WITH REFLEX MICROSCOPIC Routine 05/03/2025 11:20 PM EST Painful micturition, unspecified URINALYSIS WITH REFLEX MICROSCOPIC Routine 05/03/2025 11:20 PM EST Painful micturition, unspecified CULTURE URINE Routine 05/03/2025 11:20 PM EST Painful micturition, unspecified from Last 3 Months Results * Vitamin D 25 hydroxy (05/04/2025 8:32 AM EST) Vit D, 25-Hydroxy 64.7 30.0 - 80.0 ng/mL 05/04/2025 11:29 AM EST [facility] Blood Venous blood specimen / Unknown Venipuncture / Unknown 05/04/2025 8:32 AM EST 05/04/2025 10:41 AM EST us Evgeny Perry MD LAB BLOOD ORDERABLES Final Resul t [facility] [address] [place] [address], [place] [phone] * (ABNORMAL) Complete blood count (05/04/2025 8:32 AM EST) WBC 9.3 4.8 - 10.8 K/[facility] LAB HEMETOLOGY METHOD 05/04/2025 10:56 AM EST [facility] RBC 4.10(L) 4.50 - 5.50 /[facility] LAB HEMETOLOGY METHOD 05/04/2025 10:56 AM EST [facility] Hemoglobin 13.7 13.5 - 17.5 g/dL LAB HEMETOLOGY METHOD 05/04/2025 10:56 AM [facility] Hematocrit 39.7(L) 42.0 - 54.0 % LAB HEMETOLOGY METHOD 05/04/2025 10:56 AM [facility] MCV 97.3 79.0 - 98.0 FL LAB HEMETOLOGY METHOD 05/04/2025 10:56 AM [facility] MCH 33.6(H) 27.0 - 32.0 pcg LAB HEMETOLOGY METHOD 05/04/2025 10:56 AM [facility] MCHC 34.5 32.0 - 37.0 g/dL LAB HEMETOLOGY METHOD 05/04/2025 10:56 AM [facility] RDW 14.1 11.0 - 15.0 % LAB HEMETOLOGY METHOD 05/04/2025 10:56 AM [facility] Platelets 140 130 - 400 K/mcL LAB HEMETOLOGY METHOD 05/04/2025 10:56 AM [facility] MPV 10.9 7.0 - 11.0 FL LAB HEMETOLOGY METHOD 05/04/2025 10:56 AM [facility] NRBC 0.0 <1.0 % LAB HEMETOLOGY METHOD 05/04/2025 10:56 AM [facility] NRBC Absolute 0.00 <0.10 K/mcL LAB HEMETOLOGY METHOD 05/04/2025 10:56 AM [facility] Blood Venous blood specimen / Unknown Venipuncture / Unknown 05/04/2025 8:32 AM EST 05/04/2025 10:41 AM EST us Evgeny Perry MD LAB BLOOD ORDERABLES Final Resul t [facility] [address] [place] [address], [place] [phone] * Iron (05/04/2025 8:32 AM EST) [facility] Iron 54 50 - 160 mcg/dL 05/04/2025 11:32 AM EST [facility] Blood Venous blood specimen / Unknown Venipuncture / Unknown 05/04/2025 8:32 AM EST 05/04/2025 10:41 AM EST us Evgeny Perry MD LAB BLOOD ORDERABLES Final Resul t [facility] [address] [place] [address], [place] [phone] * (ABNORMAL) Hemoglobin A1c (05/04/2025 8:32 AM EST) [facility] Hemoglobin A1C 11.4(H) <6.5 % LAB CHEMISTRY METHOD 05/04/2025 3:24 PM EST [facility] Mean Bld Glu Estim. 280 mg/dL LAB CHEMISTRY METHOD 05/04/2025 3:24 PM EST [facility] Blood Venous blood specimen / Unknown Venipuncture / Unknown 05/04/2025 8:32 AM EST 05/04/2025 10:41 AM EST us Evgeny Perry MD LAB BLOOD ORDERABLES Final Resul t [facility] [address] [place] [address], [place] [phone] * (ABNORMAL) Comprehensive metabolic panel (05/04/2025 8:32 AM EST) [facility] Sodium 135 133 - 145 mmol/L 05/04/2025 11:32 AM EST [facility] Potassium 3.9 3.5 - 5.5 mmol/L 05/04/2025 11:32 AM EST [facility] Chloride 98 96 - 110 mmol/L 05/04/2025 11:32 AM [facility] CO2 27 21 - 32 mmol/L 05/04/2025 11:32 AM [facility] Anion Gap 10 3 - 11 05/04/2025 11:32 AM [facility] Glucose 197(H) 70 - 100 mg/dL 05/04/2025 11:32 AM [facility] BUN 29(H) 5 - 25 mg/dL 05/04/2025 11:32 AM [facility] Creatinine 1.16 0.70 - 1.30 mg/dL 05/04/2025 11:32 AM [facility] eGFR 60 >=60 mL/min/1. 73m2 05/04/2025 11:32 AM [facility] Comment:Calculation based on the Chronic Kidney Disease Epidemiology Collaboration (CKD-EPI) equation refit without adjustment for race. BUN/Creatinine Ratio 25.0 05/04/2025 11:32 AM [facility] Calcium 8.3(L) 8.5 - 10.5 mg/dL 05/04/2025 11:32 AM [facility] AST (SGOT) 54(H) 10 - 42 unit/L 05/04/2025 11:32 AM [facility] ALT (SGPT) 53 10 - 60 unit/L 05/04/2025 11:32 AM [facility] Alkaline Phosphatase 205(H) 42 - 121 unit/L 05/04/2025 11:32 AM [facility] Total Protein 6.2 6.0 - 8.0 g/dL 05/04/2025 11:32 AM [facility] Albumin 3.2 3.2 - 5.0 g/dL 05/04/2025 11:32 AM [facility] Total Bilirubin 0.8 0.0 - 1.4 mg/dL 05/04/2025 11:32 AM [facility] Blood Venous blood specimen / Unknown Venipuncture / Unknown 05/04/2025 8:32 AM EST 05/04/2025 10:41 AM EST us Evgeny Perry MD LAB BLOOD ORDERABLES Final Resul t [facility] [address] [place] [address], [place] [phone] * (ABNORMAL) Urinalysis with reflex microscopic (05/03/2025 11:20 PM EST) Specific [place] Urine 1.022 1.003 - 1.030 LAB URINALYSIS - AUTOMATED METHOD 05/04/2025 12:40 PM [facility] pH, Urine 6.0 5.0 - 8.0 pH LAB URINALYSIS - AUTOMATED METHOD 05/04/2025 12:40 PM [facility] Leukocytes, Urine Negative Negative LAB URINALYSIS - AUTOMATED METHOD 05/04/2025 12:40 PM [facility] Nitrite, Urine Negative Negative LAB URINALYSIS - AUTOMATED METHOD 05/04/2025 12:40 PM [facility] Protein, Urine 30(A) <=Trace mg/dL LAB URINALYSIS - AUTOMATED METHOD 05/04/2025 12:40 PM [facility] Glucose, Urine >=1000(A) Negative mg/dL LAB URINALYSIS - AUTOMATED METHOD 05/04/2025 12:40 PM [facility] Ketones, Urine Negative Negative mg/dL LAB URINALYSIS - AUTOMATED METHOD 05/04/2025 12:40 PM [facility] Urobilinogen , Urine 1.0 0.2 - 1.0 mg/dL LAB URINALYSIS - AUTOMATED METHOD 05/04/2025 12:40 PM [facility] Bilirubin, Urine Negative Negative LAB URINALYSIS - AUTOMATED METHOD 05/04/2025 12:40 PM [facility] Blood, Urine Negative Negative LAB URINALYSIS - AUTOMATED METHOD 05/04/2025 12:40 PM [facility] RBC, Urine 2 0 - 4 /HPF 05/04/2025 12:40 PM [facility] WBC, Urine 2 0 - 4 /HPF 05/04/2025 12:40 PM [facility] Squamous Epithelial, Urine 1 0 - 60 /LPF 05/04/2025 12:40 PM [facility] Bacteria, Urine Negative Negative /HPF 05/04/2025 12:40 PM [facility] Urine Urine specimen obtained by clean catch procedure / Unknown Non-blood Collection / Unknown 05/03/2025 11:20 PM EST 05/04/2025 11:54 AM EST us Evgeny Perry MD LAB URINE ORDERABLES Final Resul t [facility] [address] [place] [address], [place] [phone] * Culture urine (05/03/2025 11:20 PM EST) Culture, Urine No growth 05/05/2025 10:41 AM EST [facility] Urine Urine specimen obtained by clean catch procedure / Unknown Non-blood Collection / Unknown 05/03/2025 11:20 PM EST 05/04/2025 11:54 AM EST us Evgeny Perry MD LAB MICROBIOLOGY - GENERAL ORDER JAS Final Result Performing Organization Address City/[facility]/ZIP Co de Phone Number [facility] [address] [place] [address], [place] [phone] from Last 3 Months Insurance [place] [place] [id number] MEDICARE Care Teams Project Crew Worker Relationship Specialty Start Date End Date Evgeny Perry MD [address] [place] [address] [address] [place] [address] PCP - General Geriatric Medicine 05/04/25
--- NOTE | 2025-06-05 11:52 | ED.WEAKNESS ---
HPI - Weakness General Chief complaint: Weakness Stated complaint: WEAKNESS Time Seen by Provider: 06/05/25 10:17 Source: patient and EMS Mode of arrival: EMS Limitations: no limitations History of Present Illness ED Provider: HPI Narrative: 89-year-old male ambulates with a cane at home, legs became weak, he collapsed to the floor, he told me his son showed up right after, no head strike, denies any chest pain fevers chills dysuria prior to the fall, he states has been to rehab in the past, has no pain when he is laying down. He is on blood thinners Related Data Home Medications ?Medication ?Instructions ?Recorded ?Confirmed atorvastatin 80 mg tablet 80 mg PO BEDTIME 04/02/20 04/30/25 tamsulosin 0.4 mg capsule 0.4 mg PO BEDTIME 04/02/20 04/30/25 metformin 500 mg tablet 1,000 mg PO BID 09/20/21 04/30/25 blood sugar diagnostic (FreeStyle #10 ea 08/28/22 02/26/25 Lite Strips) levothyroxine 125 mcg tablet 125 mcg PO DAILY@0600 08/28/22 04/30/25 cholecalciferol (vitamin D3) 50 50 mcg PO BEDTIME 11/24/22 04/30/25 mcg (2,000 unit) tablet (Vitamin D3) coenzyme Q10 100 mg capsule 200 mg PO BEDTIME 11/24/22 04/30/25 (CoQ-10) ferrous sulfate 325 mg (65 mg 325 mg PO DAILY 11/24/22 04/30/25 iron) tablet (FeroSul) omega 9-yvq-upn-fish oil 1,000 mg 1 cap PO DAILY 11/24/22 04/30/25 (120 mg-180 mg) capsule (Fish Oil) ascorbic acid (vitamin C) 500 mg 500 mg PO BEDTIME 12/25/24 04/30/25 tablet (Vitamin C) diltiazem HCl 180 mg 180 mg PO DAILY 12/25/24 04/30/25 capsule,extended release 24 hr, controlled (DILT-XR) sitagliptin 50 mg tablet 50 mg PO DAILY 12/25/24 04/30/25 Previous Rx's ?Medication ?Instructions ?Recorded apixaban 5 mg tablet (Eliquis) 5 mg PO BID #180 tabs 03/18/25 furosemide 40 mg tablet 40 mg PO BID #180 tabs 03/18/25 metoprolol succinate 50 mg 50 mg PO BEDTIME #90 tabs 03/18/25 tablet,extended release 24 hr (Toprol XL) insulin glargine 100 unit/mL 10 unit (0.1 mL) subcut BID #0 mL 05/03/25 subcutaneous solution (Lantus U-100 Insulin) insulin lispro 100 unit/mL See Protocol subcut QIDACHS #0 mL 05/03/25 subcutaneous solution (Admelog U-100 Insulin lispro) Allergies Allergy/AdvReac Type Severity Reaction Status Date / Time No Known Allergies (No Known Allergy Verified 06/05/25 11:00 Allergies*) Review of Systems Constitutional: Constitutional: Reports as per [facility] Past Medical History Medical History Atrial flutter Hypercalcemia TAYLOR (acute kidney injury) Acute hyperglycemia HTN (hypertension) Aortic stenosis Arthritis of right knee Calcific tendinitis of left shoulder Orthostasis (~2014) Diabetes mellitus (~2014) Knee effusion (~11/15/14) Hyperlipidemia (~2012) Hypothyroidism (~2012) Surgical History S/P TAVR (transcatheter aortic valve replacement) S/P wrist surgery History of cardiac cath Family History Family History Father No problems noted. Mother Cancer Social History Social History Household Members: Spouse Housing: House Do you presently have visiting nurse or other home services: Yes Alcohol intake: former Patient Tobacco Use Status: Former Tobacco user Tobacco use type: Pipe Years Smoked: 10 Smoked in Last 30 Days: No Advance Directives: Yes Advance Directives on File: Yes Advance Directives Date on File: 11/24/22 service: No Current occupational status: retired Current occupation: Right Handed Physical Exam Exam: Exam: ?General: ??looks age appropriate ?No facial head injury, no injury to the back ?CV: S1-S2 ?Resp: ?No wheezing rales rhonchi no stridor moving air well Abd: ?Bowel sounds are present, no tenderness no rebound no rigidity MSK: Able to lift both of his legs off the gurney as arms as well, +1 pitting edema in bilateral lower extremities Skin: Chronic skin changes bilateral lower extremities ?Neuro: ?Alert and oriented x3, moving upper and lower extremities symmetrically, no obvious facial asymmetry noted, cranial nerves 2-12 intact Vital Signs: Vital Signs: Last Vital Signs Temp 97.8 F 06/05/25 10:57 Pulse 82 06/05/25 10:57 Resp 18 06/05/25 10:57 BP 138/53 L 06/05/25 10:57 Pulse Ox 92 06/05/25 10:57 O2 Del Method Room Air 06/05/25 10:57 BMI result Body Mass Index 22.1 Medical Decision Making Medical Decision Making MDM Narrative: 11:59 AM 06/05/2025 (Dr. Brayan Aguilera): Patient reported weakness in his both legs before collapsing to the floor, there was no evidence for fracture, dislocations, he had no prodromal symptoms to suspect syncope, we will workup for considerations as below, PT case management evaluation Differential Diagnosis Differential Diagnoses: The differential diagnosis associated with the presentation includes (Head injury, neck injury, fracture hip, dysrhythmia, UTI) Admission/Observation Consideration of admission/observation: Escalation of care including admission/observation considered Lab Data MDM Lab Attestation statement: I reviewed the patient's lab results. 06/05/25 11:21 06/05/25 11:21 Labs: Lab Results 06/05/25 Range/Units 11:21 WBC 7.3 (4.8-10.8) X10*3/uL RBC 2.97 L D (4.60-5.80) X10*6/uL Hgb 10.2 L D (14.0-18.0) g/dl Hct 30.1 L D (42.0-52.0) % MCV 101.3 H (80.0-98.0) fL MCH 34.3 H (27.0-33.0) pg MCHC 33.9 (31.0-36.0) g/dl RDW 17.0 H (11.0-16.0) % Plt Count 142 L (160-400) X10*3/uL MPV 9.6 (9.4-12.4) fL Immature Gran % (Auto) 1.0 H (0.0-0.4) % Neut % (Auto) 71.9 (45-73) % Lymph % (Auto) 16.9 L (20-40) % Mclean % (Auto) 9.0 (2-11) % Eos % (Auto) 0.8 (0-4) % Baso % (Auto) 0.4 (0-2) % Lymph # (Auto) 1.2 (1.2-4.9) X10*3/uL Mclean # (Auto) 0.7 (0.1-1.2) X10*3/uL Eos # (Auto) 0.1 (0.0-0.4) X10*3/uL Baso # (Auto) 0.0 (0.0-0.2) X10*3/uL Abs Immat Gran (auto) 0.07 H (0.00-0.03) X10*3/uL Absolute Neuts (auto) 5.2 (2.0-8.3) x10*3/uL Absolute Nucleated RBC 0.000 (0.0-0.012) X10*3/uL Nucleated RBC % (auto) 0.0 (0.0-0.2) /100WBC Hold Blue Top SEE NOTE Sodium 133 L (135-145) mmol/L Potassium 4.6 (3.3-5.1) mmol/L Chloride 106 (96-108) mmol/L Carbon Dioxide 17 L (22-29) mmol/L Anion Gap 15 (12-20) BUN 51 H (9-16) mg/dL Creatinine 1.84 H (0.5-1.4) mg/dL Estim Creat Clear Calc 26.9 Estimated GFR 35 Random Glucose 264 H (60-115) mg/dL Calcium 8.9 (8.4-10.2) mg/dL Total Bilirubin 0.8 (0.0-1.0) mg/dL AST 28 (5-37) U/L ALT 27 (0-40) U/L Alkaline Phosphatase 138 H (39-117) U/L Troponin I High Sens 10.5 D (<3.5-35.0) ng/L Total Protein 6.3 L (6.5-8.0) g/dL Albumin 3.6 (3.5-5.0) g/dL Independent Interpretation I performed an independent interpretation of an: EKG (78 beats per minute atrial flutter, no ST-T changes to suspect underlying ACS) Independent Historian Clinical information obtained from an independent historian. History obtained from or confirmed by: EMS and Other (son) Chronic Conditions Patient?s care impacted by: Diabetes Discharge Plan Discharge Clinical Impression: Adult failure to thrive Prescriptions: No Action ferrous sulfate [FeroSul] 325 mg (65 mg iron) tablet 325 mg PO DAILY coenzyme Q10 [CoQ-10] 100 mg Capsule 200 mg PO BEDTIME cholecalciferol (vitamin D3) [Vitamin D3] 50 mcg (2,000 unit) Tablet 50 mcg PO BEDTIME omega 8-phy-deo-fish oil [Fish Oil] 1,000 mg (120 mg-180 mg) Capsule 1 cap PO DAILY diltiazem HCl [DILT-XR] 180 mg capsule,ext.rel 24h degradable 180 mg PO DAILY ascorbic acid (vitamin C) [Vitamin C] 500 mg Tablet 500 mg PO BEDTIME sitagliptin 50 mg Tablet 50 mg PO DAILY insulin glargine [Lantus U-100 Insulin] 100 unit/mL Solution 10 unit subcut BID Qty: 0 0RF insulin lispro [Admelog U-100 Insulin lispro] 100 unit/mL Solution See Protocol subcut QIDACHS Qty: 0 0RF Protocol: Insulin Correction Scale Less than or equal to 110 ---- Give (units): 0 111 to 150 Give (units): 0 151 to 200 Give (units): 2 201 to 250 Give (units): 4 251 to 300 Give (units): 6 301 to 350 Give (units): 8 Greater than 350 Give (units): 10 Call MD if Blood Glucose > : 350 atorvastatin 80 mg tablet 80 mg PO BEDTIME tamsulosin 0.4 mg capsule 0.4 mg PO BEDTIME metformin 500 mg tablet 1,000 mg PO BID levothyroxine 125 mcg tablet 125 mcg PO DAILY@0600 (DME) FreeStyle Lite Strips Strip See Rx Instructions .ROUTE DAILY Qty: 10 Rx Instructions: As directed furosemide 40 mg tablet 40 mg PO BID Qty: 180 2RF metoprolol succinate [Toprol XL] 50 mg tablet extended release 24 hr 50 mg PO BEDTIME Qty: 90 2RF Eliquis 5 mg tablet 5 mg PO BID Qty: 180 2RF Print Language: Syriac
--- OUTSIDE RECORDS SUMMARY | 2025-06-05 11:52 | XMS_ITS | Patient Health Record ---
Author Organization [facility] Address [address] [place] [id number] Care Team Providers Care Manager Trust Name Role Phone Orestes Alex MD Primary Care Provider Mario Way [phone] Allergies Allergen (clinical drug ingredient) Drug/Non Drug [...] W/U Status Risk Notes Problem Rectal bleeding (41850995) Rectal bleeding (K62.5) Active confirmed Problem Altered bowel function (53704877) Change in bowel function (R19.4) Active confirmed Problem Anemia (559543613) Anemia (D64.9) Active confirmed Problem Constipation (14406450) Constipation, unspecified constipation type (K59.00) Active confirmed Problem Anemia (029825668) Anemia, unspecified type (D64.9) Active confirmed Plan [...] [address] [place] [address] [phone] [id number] DELIA CAT Self - patient is the insured [employer] CLAIMS [address] [place] [phone] [id number] DELIA CAT Self - patient is the insured Medical (General) History Medical History History ICD Code Colonoscopy 10-07-2007 and --negative except diverticulosis and internal hemorrhoids; 3 negative Hemoccult cards in 01/2016 Hyperlipidemia BPH Denies AL,CVA,Lung disease,renal disease NIDDM Hypothyroidism Colonoscopy 01/2019 several small tubular adenomas removed Surgical History Surgery Date(Month/Year) Thumb surgery 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
--- OUTSIDE RECORDS SUMMARY | 2025-06-05 11:52 | XMS_ITS | Patient Health Record ---
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 Name Role Phone Orestes Alex Primary Care Provider Allergies No Known Allergies Results Component Value Reference Range Notes Hemoglobin A1c Reviewed date:12/04/2024 01:29:14 PM Interpretation: Performing Lab: Notes/Report: Hemoglobin A1c 7.5 Hemoglobin A1c Reviewed date:03/24/2025 02:15:58 PM Interpretation: Performing Lab: Notes/Report: Hemoglobin A1c 6.8 Complete Blood Count Auto Di ff Reviewed date:06/20/2024 05:40:23 PM Interpretation: Performing Lab:[facility], [address] [place] [address] Notes/Report: White Blood Count 7.8 4.8-10.8 X10*3/uL [...] NRBC Abs Auto 0.000 0.0-0.012 X10*3/uL Comprehensive [place]. Panel Fa st Reviewed date:06/27/2024 01:10:00 PM Interpretation:[place] 06/27/24 Performing Lab:[facility], [address] [place] [address] Notes/Report: Sodium 142 135-145 mmol/L Potassium 4.3 [...] Panel Reviewed date:06/20/2024 05:16:22 PM Interpretation: Performing Lab:[facility], [address] [place] [address] Notes/Report: Triglycerides 117 <150 mg/dL Desirable Triglyceride: [...] (Free>4and<10) Reviewed date:06/20/2024 05:11:58 PM Interpretation: Performing Lab:[facility], [address] [place] [address] Notes/Report: PSA,Total (Free>4and<10) 0.38 0.00-4.00 ng/mL A [...] Random Reviewed date:06/20/2024 05:11:49 PM Interpretation: Performing Lab:[address] [address] Notes/Report: Creatinine Urine 93.86 Microalbumin Urine 107.0 Microalbum/Creatinine Ratio Ur 113.9 <30 ug/mg cr Albumin/Creatinine Ratio Reference Ranges: Normal: < 30 ug/mg creatinine Microalbuminuria: 30 - 300 ug/mg creatinine Clinical Albuminuria: > 300 ug/mg creatinine Hemoglobin A1c Reviewed date:06/20/2024 05:12:06 PM Interpretation: Performing Lab:[address] [address] Notes/Report: Hemoglobin A1c % 7.3 <6.0 % [...] average glucose, using the formula of the L1I-Xiqktau Average Glucose study (ADAG), Diabetes Care, Vol.31,#8, Jan. 2007 UA ClnCatch+Micro w/rflx Cul t Reviewed date:06/20/2024 05:38:57 PM Interpretation: Performing Lab:[address] [address] Notes/Report: Urine, Clean Catch Color Urine Yellow Appearance Urine Clear PH 5.5 5.0-9.0 Glucose Urine UA Negative Negative mg/dL Urine Blood Negative Negative Specific [place] - Urine 1.020 1.005-1.025 Urine Protein Trace Neg-Trace mg/dL Urine Ketones Negative Negative mg/dL Nitrite Urine Negative Negative Leukocyte Esterase Urine Negative Negative RBC Urine 0-2 0-2 /HPF WBC Urine 0-5 0-5 /HPF Squamous Epithelial Cell Urine 0-2 0-2 /HPF Bacteria Urine None Seen None Seen Hyaline Casts Urine 0-2 0-2 /LPF Liver Panel Reviewed date:12/01/2024 05:23:44 PM Interpretation: Performing Lab:[facility], [address] [place] [address] Notes/Report: Bilirubin Total 0.9 0.0-1.0 mg/dL Bilirubin Direct 0.4 0.0-0.5 mg/dL Aspartate Amino Transferase 41 5-37 U/L Alanine Aminotransferase 23 0-40 U/L Total Protein 7.3 6.5-8.0 g/dL Albumin Level 3.9 3.5-5.0 g/dL Alkaline Phosphatase 195 39-117 U/L Lipid Panel with Reflex Reviewed date:12/02/2024 08:16:58 AM Interpretation: Performing Lab:[facility], [address] [place] [address] Notes/Report: Triglycerides 127 <150 mg/dL Desirable Triglyceride: [...] Panel Reviewed date:02/13/2025 11:34:17 AM Interpretation:02-13-2025 Performing Lab:[facility], [address] [place] [address] Notes/Report: Bilirubin Total 0.7 0.0-1.0 mg/dL Bilirubin Direct 0.4 0.0-0.5 mg/dL Aspartate Amino Transferase 87 5-37 U/L Alanine Aminotransferase 78 0-40 U/L Total Protein 6.6 6.5-8.0 g/dL Albumin Level 3.4 3.5-5.0 g/dL Alkaline Phosphatase 154 39-117 U/L Liver Panel Reviewed date:02/13/2025 12:45:26 PM Interpretation: Performing Lab:[facility], [address] [place] [address] Notes/Report: Bilirubin Total 0.9 0.0-1.0 mg/dL Bilirubin [...] PM Interpretation: Performing Lab: Notes/Report: Value 63 Glucose, finger stick Reviewed date:05/28/2025 01:50:26 PM Interpretation: Performing Lab: Notes/Report: Value 176 XR chest 2V Reviewed date:10/29/2024 03:54:47 PM Interpretation: Performing Lab: Notes/Report: [address] [address] XRay Report Signed Patient: Delia Chávez MR#: [id number] : 1935 Acct:[id number] Age/Sex: 89 / M ADM Date: 10/28/24 Loc: DYLAN Attending Dr: Cm Rivas NP Ordering Physician: Cm Rivas NP Date of Service: 10/28/24 Procedure(s): XR chest 2V Accession Number(s): [id number] cc: Orestes Alex MD; Nyima,Cm [employer] FELLOW EXAMINATION: XR CHEST CLINICAL INFORMATION: R06.02 - [...] 10/28/24 1550 DD/ 1536 TD/TT: 10/28/24 1542 Bed Rubber: [place] [address] XRay Report Signed Patient: Delia Chávez MR#: [id number] : 1935 Acct:[id number] Age/Sex: 89 / M ADM Date: 10/28/24 Loc: HO.MADINAAY Attending Dr: Cm Rivas NP Ordering Physician: Cm Rivas NP Date of Service: 10/28/24 Procedure(s): XR [facility] [facility] 2V Accession Number(s): [id number] cc: Orestes Alex MD; Cm Rivas NP [...] 10/28/24 1550 DD/ 1536 TD/TT: 10/28/24 1542 Bed Rubber: Aubree Morales Reviewed date:12/01/2024 12:26:31 PM Interpretation: Performing Lab:[facility], [address] [place] [address] Notes/Report: Aubree Morales See Note Specimen held untested for 24 hours; Call to request Chemistry testing. Complete Blood Count Auto Di ff Reviewed date:12/24/2024 03:54:40 PM Interpretation: Performing Lab:[facility], [address] [place] [address] Notes/Report: White Blood Count 13.8 4.8-10.8 X10*3/uL [...] INR Reviewed date:12/25/2024 12:13:33 PM Interpretation: Performing Lab:[address] [address] Notes/Report: Prothrombin Time 16.4 10.9-12.4 SEC [employer] [...] Time Reviewed date:12/25/2024 12:56:06 PM Interpretation: Performing Lab:[address] [address] Notes/Report: Partial Thromboplastin Time 37.1 26.0-36.8 SEC For information regarding the monitoring of direct thrombin inhibitors, please refer to Pharmacy. Comprehensive Met. Panel Reviewed date:12/24/2024 04:05:16 PM Interpretation: Performing Lab:[address] [address] Notes/Report: Sodium 132 135-145 mmol/L Potassium 4.2 [...] Acid Reviewed date:12/25/2024 12:13:13 PM Interpretation: Performing Lab:[address] [address] Notes/Report: Lactic Acid 3.1 0.5-2.0 mmol/L Critical value for test(s): LACTA Results called to and read back by: SHUN Person calling: ANA Date: 12.24.24 Time: 1919 Magnesium Reviewed date:12/24/2024 03:54:51 PM Interpretation: Performing Lab:[address] [address] Notes/Report: Magnesium 1.6 1.6-2.6 mg/dL Troponin-I High Sensitivity Reviewed date:12/24/2024 04:02:15 PM Interpretation: Performing Lab:[address] [address] Notes/Report: Troponin-I High Sensitivity 78.5 <3.5-35.0 ng/L The Joseph high sensitivity Troponin-I results should be used in conjunction with other diagnostic information such as ECG, clinical observations and information, and patient symptoms to aid in the diagnosis of DC. B Type Natriuretic Peptide Reviewed date:12/24/2024 04:01:59 PM Interpretation: Performing Lab:[address] [address] Notes/Report: B Type Natriuretic Peptide 227 <100 pg/mL SARS-CoV2/FLU/RSV Reviewed date:12/25/2024 12:13:46 PM Interpretation: Performing Lab:[address] [address] Notes/Report: Influenza A PCR NEGATIVE Negative Influenza [...] by authorized laboratories. Testing performed on the Iot[employer] GeneXpert utilizing real-time RT-PCR. All SARS CoV2 and positive influenza A/B results are reported to [facility]. Blood Culture (First) Reviewed date:12/30/2024 12:35:51 PM Interpretation: Performing Lab:[address] [address] Notes/Report: Blood Culture (First) No growth after 5 days. Blood Culture (Second) Reviewed date:12/30/2024 12:38:40 PM Interpretation: Performing Lab:[address] [address] Notes/Report: Blood Culture (Second) No growth after 5 days. Lactic Acid-LAB USE ONLY Reviewed date:12/25/2024 12:11:17 PM Interpretation: Performing Lab:[address] [address] Notes/Report: Lactic Acid-LAB USE ONLY 2.2 0.5-2.0 mmol/L Critical value for test(s): LACTA Results called to and read back by: BLAKE Person calling: ANA Date: 12.24.24 Time: 2245 Venous Blood Gases - POC Reviewed date:12/24/2024 03:41:59 PM Interpretation: Performing Lab:[facility], [address] [place] [address] Notes/Report: VBG pH 7.36 7.32-7.43 METER #: [id number] additional_comment: Cb rojascr VBG pCO2 46 METER #: [id number] additional_comment: Cb rojascr VBG pO2 34 METER #: [id number] additional_comment: Cb rojascr VBG Base Excess 1.2 METER #: [id number] additional_comment: Cb rojascr VBG HCO3 26 22-26 mmol/L METER #: [id number] additional_comment: Cb rojascr VBG O2 % Saturation 41.0 METER #: [id number] additional_comment: Cb rojascr D Dimer High Sensitivity Reviewed date:12/25/2024 12:13:21 PM Interpretation: Performing Lab:[facility], [address] [place] [address] Notes/Report: D Dimer High Sensitivity 469 D-DIMER [...] date:12/25/2024 12:14:35 PM Interpretation: Performing Lab: Notes/Report: [address] [address] [address] Scan Report Signed Patient: Delia Chávez MR#: [id number] : 1935 Acct:[id number] Age/Sex: 89 / M ADM Date: 12/24/24 Loc: .ED Attending Dr: Ordering Physician: Raul Chery MD Date of Service: 12/24/24 Procedure(s): CT chest wo IV con Accession Number(s): [id number] cc: Orestes Alex MD; Raul Chery MD Report Number: [id number]: Total DLP = 291.00 mGy-cm CLINICAL HISTORY: Left lung mass? CT chest without contrast Comparison: CR/SR - XR CHEST 1 VIEW - 12/24/24 15:46 EDT CR/CT/SR - XR CHEST 2V - 10/28/24 15:46 [...] in OV> 12/24/242127 DD/ 25 TD/TT: 12/24/242125 Bed Rubber: [place] [address] CT Scan Report Signed Patient: Delia Chávez MR#: [id number] : 1935 Acct:[id number] Age/Sex: 89 / M ADM Date: 12/24/24 Loc: HO.ED Attending Dr: Ordering Physician: Raul Chery MD Date of Service: 12/24/24 Procedure(s): CT [facility] [facility] wo IV con Accession Number(s): [id number] cc: Orestes Alex MD; Raul Chery MD Report Number: [id number]: Total DLP = 291.00 mGy-cm CLINICAL HISTORY: Le ft lung mass? CT chest without contrast Comparison: CR/SR - XR CHEST 1 VIEW - 12/24/24 15:46 EDT CR/CT/SR - XR CHEST 2V - 10/28/24 15:46 [...] in OV> 12/24/242127 DD/ 25 TD/TT: 12/24/242125 Bed Rubber: XR chest 1V Reviewed date:12/24/2024 04:10:13 PM Interpretation: Performing Lab: Notes/Report: [address] [address] XRay Report Signed Patient: Delia Chávez MR#: [id number] : 1935 Acct:[id number] Age/Sex: 89 / M ADM Date: 12/24/24 Loc: .ED Attending Dr: Ordering Physician: Generic ED Physician Date of Service: 12/24/24 Procedure(s): XR chest 1V Accession Number(s): [id number] cc: Orestes Alex MD; Generic ED Physician [...] 12/24/24 1550 DD/ 1446 TD/TT: 12/24/24 1544 Bed Rubber: [address] [address] XRay Report Signed Patient: Delia Chávez MR#: [id number] : 1935 Acct:[id number] Age/Sex: 89 / M ADM Date: 12/24/24 Loc: .ED Attending Dr: Ordering Physician: Generic ED Physician Date of Service: 12/24/24 Procedure(s): XR [facility] [facility] 1V Accession Number(s): [id number] cc: Orestes Alex MD; Generic ED Physician [...] 12/24/24 1550 DD/ 1446 TD/TT: 12/24/24 1544 Bed Rubber: Complete Blood Count Auto Di ff Reviewed date:12/25/2024 05:07:41 PM Interpretation: Performing Lab:[facility], [address] [place] [address] Notes/Report: White Blood Count 13.0 4.8-10.8 X10*3/uL [...] Panel Reviewed date:12/25/2024 12:53:03 PM Interpretation: Performing Lab:[facility], [address] [place] [address] Notes/Report: Sodium 135 135-145 mmol/L Potassium 3.8 [...] Sensitivity Reviewed date:12/25/2024 05:06:12 PM Interpretation: Performing Lab:[address] [address] Notes/Report: Troponin-I High Sensitivity 43.7 <3.5-35.0 ng/L The Joseph high sensitivity Troponin-I results should be used in conjunction with other diagnostic information such as ECG, clinical observations and information, and patient symptoms to aid in the diagnosis of DC. Glucose, Whole Blood Reviewed date:12/25/2024 12:10:35 PM Interpretation: Performing Lab:[address] [address] Notes/Report: Glucose, Whole Blood 201 60-115 mg/dL METER # : [id number] Lactic Acid-LAB USE ONLY Reviewed date:12/25/2024 12:10:52 PM Interpretation: Performing Lab:[facility], [address] [place] [address] Notes/Report: Lactic Acid-LAB USE ONLY 3.8 0.5-2.0 mmol/L Critical LACTIC ACID sent by a secure message and confirmed by KARLOS/GUILHERME 12/25/24 0131 Tech:VERA Glucose, Whole Blood Reviewed date:12/25/2024 05:04:54 PM Interpretation: Performing Lab:[address] [address] Notes/Report: Glucose, Whole Blood 189 60-115 mg/dL METER # : [id number] Glucose, Whole Blood Reviewed date:12/25/2024 05:05:38 PM Interpretation: Performing Lab:[facility], [address] [place] [address] Notes/Report: Glucose, Whole Blood 161 60-115 mg/dL METER # : [id number] Glucose, Whole Blood Reviewed date:12/26/2024 04:12:43 PM Interpretation: Performing Lab:[facility], [address] [place] [address] Notes/Report: Glucose, Whole Blood 167 60-115 mg/dL METER # : [id number] Complete Blood Count Auto Di ff Reviewed date:12/26/2024 03:08:03 PM Interpretation: Performing Lab:[facility], [address] [place] [address] Notes/Report: White Blood Count 10.9 4.8-10.8 X10*3/uL [...] Panel Reviewed date:12/26/2024 03:07:56 PM Interpretation: Performing Lab:[address] [address] Notes/Report: Sodium 137 135-145 mmol/L Potassium 3.7 [...] Blood Reviewed date:12/26/2024 03:07:47 PM Interpretation: Performing Lab:[address] [address] Notes/Report: Glucose, Whole Blood 163 60-115 mg/dL METER # : [id number] Glucose, Whole Blood Reviewed date:12/26/2024 12:31:38 PM Interpretation: Performing Lab:[address] [address] Notes/Report: Glucose, Whole Blood 214 60-115 mg/dL METER # : [id number] Glucose, Whole Blood Reviewed date:12/26/2024 04:16:50 PM Interpretation: Performing Lab:[address] [address] Notes/Report: Glucose, Whole Blood 162 60-115 mg/dL METER # : [id number] Glucose, Whole Blood Reviewed date:12/27/2024 05:26:03 PM Interpretation: Performing Lab:[facility], [address] [place] [address] Notes/Report: Glucose, Whole Blood 147 60-115 mg/dL METER # : [id number] Complete Blood Count Auto Di ff Reviewed date:12/27/2024 05:41:08 PM Interpretation: Performing Lab:[facility], [address] [place] [address] Notes/Report: White Blood Count 11.4 4.8-10.8 X10*3/uL [...] Panel Reviewed date:12/27/2024 05:38:02 PM Interpretation: Performing Lab:[facility], [address] [place] [address] Notes/Report: Sodium 139 135-145 mmol/L Potassium 3.7 [...] Blood Reviewed date:12/27/2024 05:32:13 PM Interpretation: Performing Lab:[facility], [address] [place] [address] Notes/Report: Glucose, Whole Blood 161 60-115 mg/dL METER # : [id number] Aubree Morales Reviewed date:12/27/2024 05:27:08 PM Interpretation: Performing Lab:[facility], [address] [place] [address] Notes/Report: Aubree Morales See Note Specimen held untested for 24 hours; Call to request Chemistry testing. Glucose, Whole Blood Reviewed date:12/27/2024 04:51:49 PM Interpretation: Performing Lab:[facility], [address] [place] [address] Notes/Report: Glucose, Whole Blood 265 60-115 mg/dL METER # : [id number] XR chest 2V Reviewed date:01/09/2025 01:45:09 PM Interpretation: Performing Lab: Notes/Report: [address] [address] XRay Report Signed Patient: Delia Chávez MR#: [id number] : 1935 Acct:[id number] Age/Sex: 89 / M ADM Date: 01/09/25 Loc: HO.XRAY Attending Dr: Orestes Alex MD Ordering Physician: Orestes Alex MD Date of Service: 01/09/25 Procedure(s): XR chest 2V Accession Number(s): [id number] cc: Orestes Alex MD EXAMINATION: XR CHEST [...] 01/09/25 1256 DD/ 1222 TD/TT: 01/09/25 1230 Bed Rubber: [address] [address] XRay Report Signed Patient: Delia Chávez MR#: [id number] : 1935 Acct:[id number] Age/Sex: 89 / M ADM Date: 01/09/25 Loc: HO.XRAY Attending Dr: Orestes Alex MD Ordering Physician: Orestes Alex MD Date of Service: 01/09/25 Procedure(s): XR [address] 2V Accession Number(s): [id number] cc: Orestes Alex MD EXAMINATION: XR CHEST [...] 01/09/25 1256 DD/ 1222 TD/TT: 01/09/25 1230 Bed Rubber: XR chest 2V Reviewed date:02/17/2025 01:06:15 PM Interpretation: Performing Lab: Notes/Report: [address] [address] XRay Report Signed Patient: Delia Chávez MR#: [id number] : 1935 Acct:[id number] Age/Sex: 89 / M ADM Date: 02/17/25 Loc: DYLAN Attending Dr: Orestes Alex MD Ordering Physician: Orestes Alex MD Date of Service: 02/17/25 Procedure(s): XR chest 2V Accession Number(s): [id number] cc: Orestes Alex MD Reason for Exam: [...] Mario Moore MD 02/17/2025 12:10 PM EDT Dictated By: Mario Moore MD Signed By: <Electronically signed by Mario Moore MD in OV> 02/17/25 1210 DD/ 1140 TD/TT: 02/17/25 1143 Bed Rubber: [place] [address] XRay Report Signed Patient: Delia Chávez MR#: [id number] : 1935 Acct:[id number] Age/Sex: 89 / M ADM Date: 02/17/25 Loc: HO.XRAY Attending Dr: Orestes Alex MD Ordering Physician: Orestes Alex MD Date of Service: 02/17/25 Procedure(s): XR [address] 2V Accession Number(s): [id number] cc: Orestes Alex MD Reason for Exam: [...] 02/17/25 1210 DD/ 1140 TD/TT: 02/17/25 1143 Bed Rubber: CT chest wo con Reviewed date:03/05/2025 12:38:08 PM Interpretation: Performing Lab: Notes/Report: [address] [address] [address] Scan Report Signed Patient: Delia Chávez MR#: [id number] : 1935 Acct:[id number] Age/Sex: 89 / M ADM Date: 03/04/25 Loc: HO.CT Attending Dr: Kerline Ceja NP Ordering Physician: Kerline Ceja NP Date of Service: 03/04/25 Procedure(s): CT chest wo IV con Accession Number(s): [id number] cc: Orestes Alex MD; Kerline Ceja NP Report Number: [id number]: Total DLP = 123.00 mGy-cm Reason for [...] 03/04/25 1637 DD/ 1510 TD/TT: 03/04/25 1542 Bed Rubber: [address] [address] [address] Scan Report Signed Patient: Delia Chávez MR#: [id number] : 1935 Acct:[id number] Age/Sex: 89 / M ADM Date: 03/04/25 Loc: HO.CT Attending Dr: Yuliya Ceja [employer]LLOW Ordering Physician: Kerline Ceja NP Date of Service: 03/04/25 Procedure(s): CT [facility] [facility] wo IV con Accession Number(s): [id number] cc: Orestes Alex MD; Kerline Ceja NP Report Number: [id number]: Total DLP = 123.00 mGy-cm Reason for [...] 03/04/25 1637 DD/ 1510 TD/TT: 03/04/25 1542 Bed Rubber: XR chest 2V Reviewed date:03/30/2025 02:33:55 PM Interpretation:03-24-2025 Performing Lab: Notes/Report: [address] [address] XRay Report Signed Patient: Delia Chávez MR#: [id number] : 1935 Acct:[id number] Age/Sex: 89 / M ADM Date: 03/10/25 Loc: DYLAN Attending Dr: Orestes Alex MD Ordering Physician: Orestes Alex MD Date of Service: 03/10/25 Procedure(s): XR chest 2V Accession Number(s): [id number] cc: Orestes Alex MD Reason for Exam: [...] 03/10/25 1648 DD/ 1636 TD/TT: 03/10/25 1639 Bed Rubber: [address] [address] XRay Report Signed Patient: Delia Chávez MR#: [id number] : 1935 Acct:[id number] Age/Sex: 89 / M ADM Date: 03/10/25 Loc: DYLAN Attending Dr: Orestes Alex MD Ordering Physician: Orestes Alex MD Date of Service: 03/10/25 Procedure(s): XR [address] 2V Accession Number(s): [id number] cc: Orestes Alex MD Reason for Exam: [...] 03/10/25 1648 DD/ 1636 TD/TT: 03/10/25 1639 Bed Rubber: Complete Blood Count no Diff Reviewed date:03/18/2025 04:19:01 PM Interpretation: Performing Lab:[facility], [address] [place] [address] Notes/Report: White Blood Count 10.9 4.8-10.8 X10*3/uL [...] Panel Reviewed date:03/18/2025 04:15:28 PM Interpretation: Performing Lab:[address] [address] Notes/Report: Sodium 141 135-145 mmol/L Potassium 4.1 [...] pt Reviewed date:03/18/2025 04:15:09 PM Interpretation: Performing Lab:[address] [address] Notes/Report: NT Pro B Type Natriuretic Pept [...] date:03/24/2025 04:52:17 PM Interpretation: Performing Lab: Notes/Report: [address] [address] XRay Report Signed Patient: Delia Chávez MR#: [id number] : 1935 Acct:[id number] Age/Sex: 89 / M ADM Date: 03/24/25 Loc: HO.XRAY Attending Dr: Kerline Ceja NP Ordering Physician: Kerline Ceja NP Date of Service: 03/24/25 Procedure(s): XR chest 2V Accession Number(s): [id number] cc: Orestes Alex MD; Kerline Ceja NP Reason for Exam: Z87.01 - Personal history of pneumonia (recurrent) EXAMINATION: XR CHEST 2 VIEWS HISTORY: Z87. - Personal history of pneumonia (recurrent) [...] 03/24/25 1514 DD/ 1456 TD/TT: 03/24/25 1504 Bed Rubber: [place] [address] XRay Report Signed Patient: Delia Chávez MR#: [id number] : 1935 Acct:[id number] Age/Sex: 89 / M ADM Date: 03/24/25 Loc: DLYAN Attending Dr: Yuliya Ceja NP Ordering Physician: Kerline Ceja NP Date of Service: 03/24/25 Procedure(s): XR [facility] [facility] 2V Accession Number(s): [id number] cc: Orestes Alex MD; Kerline Ceja NP Reason for Exam: Z87 .01 - Personal history of pneumonia (recurrent) EXAMINATION: XR CHES T 2 VIEWS HISTORY: Z87.01 - Personal history of pneumonia (recurrent) [...] 03/24/25 1514 DD/ 1456 TD/TT: 03/24/25 1504 Bed Rubber: Glucose, Whole Blood Reviewed date:04/30/2025 07:35:22 AM Interpretation: Performing Lab:[address] [address] Notes/Report: Glucose, Whole Blood > 600 60-115 mg/dL METER # : [id number] Venous Blood Gases - POC Reviewed date:04/30/2025 07:35:22 AM Interpretation: Performing Lab:[facility], [address] [place] [address] Notes/Report: VBG pH 7.39 7.32-7.43 METER #: [id number] additional_comment: Dank watson VBG pCO2 24 METER #: [id number] additional_comment: Dank watson VBG pO2 51 METER #: [id number] additional_comment: Dank watson VBG Base Excess -7.8 METER #: [id number] additional_comment: Dank watson VBG HCO3 15 22-26 mmol/L METER #: [id number] additional_comment: Dank shirley VBG O2 % Saturation 77.0 METER #: [id number] additional_comment: Dank watson Glucose, Whole Blood Reviewed date:04/30/2025 07:35:22 AM Interpretation: Performing Lab:[facility], [address] [place] [address] Notes/Report: Glucose, Whole Blood > 600 60-115 mg/dL METER # : [id number] Glucose, Whole Blood Reviewed date:04/30/2025 07:35:22 AM Interpretation: Performing Lab:[facility], [address] [place] [address] Notes/Report: Glucose, Whole Blood > 600 60-115 mg/dL METER # : [id number] Glucose, Whole Blood Reviewed date:04/30/2025 07:35:22 AM Interpretation: Performing Lab:[facility], [address] [place] [address] Notes/Report: Glucose, Whole Blood > 600 60-115 mg/dL METER # : [id number] Glucose, Whole Blood Reviewed date:04/30/2025 07:35:22 AM Interpretation: Performing Lab:[facility], [address] [place] [address] Notes/Report: Glucose, Whole Blood 577 60-115 mg/dL METER # : [id number] Complete Blood Count no Diff Reviewed date:04/30/2025 07:35:22 AM Interpretation: Performing Lab:[facility], [address] [place] [id number] Notes/Report: White Blood Count 11.4 4.8-10.8 X10*3/uL [...] 0.000 0.0-0.012 X10*3/uL Basic Metabolic Panel Reviewed date:04/30/2025 12:41:39 PM Interpretation: Performing Lab:[facility], [address] [place] [phone] Notes/Report: Sodium 134 135-145 mmol/L Potassium 3.7 3.3-5.1 mmol/L Chloride 100 96-108 mmol/L Carbon Dioxide 18 22-29 mmol/L Anion Gap 20 12-20 Blood Urea Nitrogen 48 9-16 mg/dL Creatinine 1.59 0.5-1.4 mg/dL Creatinine Clr Calc Pharmacy 29.4 eGFR (calculated from the MDRD study equation) and eCrCl eGFR (calculated from the MDRD study equation) and eCrCl (calculated from the Cockcroft-Gault equation) are based on (calculated from the Cockcroft-Gault equation) are based on different parameters and may not yield comparable results. different parameters and may not yield comparable results. If eCrCl result is absurd, please check patient's If eCrCl result is absurd, please check patient's height/weight. height/weight. Estimated Glomerular Filt Rate 41 Chronic Kidney Disease: Estimated GFR < 60 mL/min/1.73m2 Chronic Kidney Disease: Estimated GFR < 60 mL/min/1.73m2 Severe Kidney Disease: Estimated GFR < 15 mL/min/1.73m2 Severe Kidney Disease: Estimated GFR < 15 mL/min/1.73m2 Glucose Random 451 60-115 mg/dL Critical value for test(s): GLUCR Results called to and Critical value for test(s): GLUCR Results called to and read read back by: CAMILLA Person calling:VYASRID Date:[id number] back by: CHELAON Person calling:VYASRID Date:04/30/2025 Time:253 Time:253 Calcium 9.0 8.4-10.2 mg/dL Sodium 134 135-145 mmol/L Potassium 3.7 3.3-5.1 mmol/L Chloride 100 96-108 mmol/L Carbon Dioxide 18 22-29 mmol/L Anion Gap 20 12-20 Blood Urea Nitrogen 48 9-16 mg/dL Creatinine 1.59 0.5-1.4 mg/dL Creatinine Clr Calc Pharmacy 29.4 eGFR (calculated from the MDRD study equation) and eCrCl eGFR (calculated from the MDRD study equation) and eCrCl (calculated from the Cockcroft-Gault equation) are based on (calculated from the Cockcroft-Gault equation) are based on different parameters and may not yield comparable results. different parameters and may not yield comparable results. If eCrCl result is absurd, please check patient's If eCrCl result is absurd, please check patient's height/weight. height/weight. Estimated Glomerular Filt Rate 41 Chronic Kidney Disease: Estimated GFR < 60 mL/min/1.73m2 Chronic Kidney Disease: Estimated GFR < 60 mL/min/1.73m2 Severe Kidney Disease: Estimated GFR < 15 mL/min/1.73m2 Severe Kidney Disease: Estimated GFR < 15 mL/min/1.73m2 Glucose Random 451 60-115 mg/dL Critical value for test(s): GLUCR Results called to and Critical value for test(s): GLUCR Results called to and read read back by: CAMILLA Person calling:[employer] Date:[id number] back by: MATEON Person calling:VYASRID Date:04/30/2025 Time:0254 Time:025 Calcium 9.0 8.4-10.2 mg/dL CO RRECTED REPORT Magnesium Reviewed date:04/30/2025 12:41:18 PM Interpretation: Performing Lab:[address] [address] Notes/Report: Magnesium 1.7 1.6-2.6 mg/dL Lipase Reviewed date:04/30/2025 12:43:15 PM Interpretation: Performing Lab:[address] [address] Notes/Report: Lipase 102 8-78 U/L Glucose, Whole Blood Reviewed date:04/30/2025 07:35:22 AM Interpretation: Performing Lab:[address] [address] Notes/Report: Glucose, Whole Blood 415 60-115 mg/dL METER # : [id number] SARS-CoV2/FLU/RSV Reviewed date:04/30/2025 07:35:22 AM Interpretation: Performing Lab:[address] [address] Notes/Report: Influenza A PCR NEGATIVE Negative Influenza [...] by authorized laboratories. Testing performed on the [employer] GeneXpert utilizing real-time RT-PCR. All SARS CoV2 and positive influenza A/B results are reported to [facility]. Beta-Hydroxybutyrate Reviewed date:04/30/2025 12:41:27 PM Interpretation: Performing Lab:[address] [address] Notes/Report: Beta-Hydroxybutyrate 0.76 0.02-0.27 mmol/L NT Pro B Type Natriuretic Pe pt Reviewed date:04/30/2025 07:35:22 AM Interpretation: Performing Lab:[address] [address] Notes/Report: NT Pro B Type Natriuretic Pept [...] context of other clinical information. XR chest 1V Reviewed date:04/30/2025 07:35:22 AM Interpretation: Performing Lab: Notes/Report: [address] [address] XRay Report Signed Patient: Delia Chávez MR#: [id number] : 1935 Acct:[id number] Age/Sex: 89 / M ADM Date: 04/30/25 Loc: [facility]: Gume Grubbs MD Ordering Physician: Katiana Grover PA-C Date of Service: 04/30/25 Procedure(s): XR chest 1V Accession Number(s): [id number] cc: Orestes Alex MD; Katiana Grover PA-C Reason for Exam: SOB EXAMINATION: XR CHEST 1 VIEW HISTORY: SOB COMPARISON: Comparison is made with the prior examination dated 03/24/2025. FINDINGS: A single AP portable view of the chest performed at 4:21 AM is submitted. Again seen is scarring and increased interstitial markings bilaterally. No focal airspace opacity is seen. There is no pleural effusion, pneumothorax, or pulmonary vascular congestion. The heart is normal in size. 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 XR/XR chest 1V IMPRESSION: Pulmonary scarring and increased interstitial markings. No acute cardiopulmonary abnormality. Electronically signed by: Mario Moore MD 04/30/2025 06:58 AM [facility] Dictated By: Mario Moore MD Signed By: <Electronically signed by Mario Moore MD in OV> 04/30/25 0658 DD/ 0 TD/TT: 04/30/25425 Bed Rubber: [address] [address] XRay Report Signed Patient: Delia Chávez MR#: [id number] : 1935 Acct:[id number] Age/Sex: 89 / M ADM Date: 04/30/25 Loc: [facility]: Bhavani Grubbs MD Ordering Physician: Katiana Grover PA-C Date of Service: 04/30/25 Procedure(s): XR [facility] st 1V Accession Number(s): [id number] cc: Orestes Alex MD; Katiana Grover PA-C Reason for Exam: SOB EXAMINATION: XR CHES T 1 VIEW HISTORY: SOB COMPARISON: Comparis on is made with the prior examination dated 03/24/2025. FINDINGS: A single A P portable view of the chest performed at 4:21 AM is submitted. Again seen is scarring and increased interstitial markings bilaterally . No focal airspace opacity is seen. There is no pleural effusion, pneumothorax, or pulmonary vascular congestion. The heart is normal in s ize. An aortic valve prosthesis is again noted. There is degenerativ e disc disease of the spine. X R/XR chest 1V IMPRESSION: Pulmonary scarring a nd increased interstitial markings. No acute cardiopulmonary abnormality. Electronically alex d by: Mario Moore MD 04/30/2025 06:58 AM EST Dictated By: Mario Moore MD Signed By: <Electronically signed by Mario Moore MD in OV> 04/30/25 0658 DD/ 0 TD/TT: 04/30/25425 Bed Rubber: Glucose, Whole Blood Reviewed date:04/30/2025 07:35:22 AM Interpretation: Performing Lab:[facility], [address] [place] [address] Notes/Report: Glucose, Whole Blood 416 60-115 mg/dL METER # : [id number] Basic Metabolic Panel Reviewed date:04/30/2025 04:52:31 PM Interpretation: Performing Lab:[address] [address] Notes/Report: Sodium 134 135-145 mmol/L Potassium 3.7 3.3-5.1 mmol/L Chloride 98 96-108 mmol/L Carbon Dioxide 17 22-29 mmol/L Anion Gap 23 12-20 Blood Urea Nitrogen 44 9-16 mg/dL Creatinine 1.56 0.5-1.4 mg/dL Creatinine Clr Calc Pharmacy 30.0 eGFR (calculated from the MDRD study equation) and eCrCl eGFR (calculated from the MDRD study equation) and eCrCl (calculated from the Cockcroft-Gault equation) are based on (calculated from the Cockcroft-Gault equation) are based on different parameters and may not yield comparable results. different parameters and may not yield comparable results. If eCrCl result is absurd, please check patient's If eCrCl result is absurd, please check patient's height/weight. height/weight. Estimated Glomerular Filt Rate 42 Chronic Kidney Disease: Estimated GFR < 60 mL/min/1.73m2 Chronic Kidney Disease: Estimated GFR < 60 mL/min/1.73m2 Severe Kidney Disease: Estimated GFR < 15 mL/min/1.73m2 Severe Kidney Disease: Estimated GFR < 15 mL/min/1.73m2 Glucose Random 460 60-115 mg/dL Critical value for test(s): GLUCR Results called to and Critical value for test(s): GLUCR Results called to and read read back by:CHELAON Person calling: [employer] Date:[id number] back by:MATEON Person calling: TIM GroupID Date:04/30/2025 Time:0545 Time:05 Calcium 9.3 8.4-10.2 mg/dL Sodium 134 135-145 mmol/L Potassium 3.7 3.3-5.1 mmol/L Chloride 98 96-108 mmol/L Carbon Dioxide 17 22-29 mmol/L Anion Gap 23 12-20 Blood Urea Nitrogen 44 9-16 mg/dL Creatinine 1.56 0.5-1.4 mg/dL Creatinine Clr Calc Pharmacy 30.0 eGFR (calculated from the MDRD study equation) and eCrCl eGFR (calculated from the MDRD study equation) and eCrCl (calculated from the Cockcroft-Gault equation) are based on (calculated from the Cockcroft-Gault equation) are based on different parameters and may not yield comparable results. different parameters and may not yield comparable results. If eCrCl result is absurd, please check patient's If eCrCl result is absurd, please check patient's height/weight. height/weight. Estimated Glomerular Filt Rate 42 Chronic Kidney Disease: Estimated GFR < 60 mL/min/1.73m2 Chronic Kidney Disease: Estimated GFR < 60 mL/min/1.73m2 Severe Kidney Disease: Estimated GFR < 15 mL/min/1.73m2 Severe Kidney Disease: Estimated GFR < 15 mL/min/1.73m2 Glucose Random 460 60-115 mg/dL Critical value for test(s): GLUCR Results called to and Critical value for test(s): GLUCR Results called to and read read back by:MATEON Person calling: [employer] Date:[id number] back by:MATEON Person calling: VYASRID Date:04/30/2025 Time:0545 Time:0545 Calcium 9.3 8.4-10.2 mg/dL CO RRECTED REPORT Glucose, Whole Blood Reviewed date:04/30/2025 07:35:21 AM Interpretation: Performing Lab:[facility], [address] [place] [address] Notes/Report: Glucose, Whole Blood 491 60-115 mg/dL METER # : [id number] Glucose, Whole Blood Reviewed date:04/30/2025 04:52:21 PM Interpretation: Performing Lab:[facility], [address] [place] [address] Notes/Report: Glucose, Whole Blood 310 60-115 mg/dL METER # : [id number] Glucose, Whole Blood Reviewed date:04/30/2025 04:46:47 PM Interpretation: Performing Lab:[facility], [address] [place] [address] Notes/Report: Glucose, Whole Blood 256 60-115 mg/dL METER # : [id number] Glucose, Whole Blood Reviewed date:04/30/2025 04:45:23 PM Interpretation: Performing Lab:[facility], [address] [place] [phone] Notes/Report: Glucose, Whole Blood 236 60-115 mg/dL METER # : [id number] Glucose, Whole Blood Reviewed date:04/30/2025 04:45:13 PM Interpretation: Performing Lab:[facility], [address] [place] [phone] Notes/Report: Glucose, Whole Blood 224 60-115 mg/dL METER # : [id number] Glucose, Whole Blood Reviewed date:05/01/2025 12:59:38 PM Interpretation: Performing Lab:[facility], [address] [place] [address] Notes/Report: Glucose, Whole Blood 141 60-115 mg/dL METER # : [id number] Complete Blood Count no Diff Reviewed date:05/01/2025 04:28:31 PM Interpretation: Performing Lab:[facility], [address] [place] [phone] Notes/Report: White Blood Count 11.1 4.8-10.8 X10*3/uL Red Blood Count 4.12 4.60-5.80 X10*6/uL Hemoglobin 13.6 14.0-18.0 g/dl Hematocrit 39.6 42.0-52.0 % Mean Corpuscular Volume 96.1 80.0-98.0 fL Mean Corpuscular Hemoglobin 33.0 27.0-33.0 pg Mean Corpuscular HGB Conc 34.3 31.0-36.0 g/dl Red Cell Distribution Width 13.7 11.0-16.0 % Platelet Count 126 160-400 X10*3/uL Mean Platelet Volume 10.4 9.4-12.4 fL NRBC Pct Auto 0.0 0.0-0.2 /100WBC NRBC Abs Auto 0.000 0.0-0.012 X10*3/uL Basic Metabolic Panel Reviewed date:05/01/2025 04:26:16 PM Interpretation: Performing Lab:[facility], [address] [place] [address] Notes/Report: Sodium 135 135-145 mmol/L Potassium 4.3 3.3-5.1 mmol/L Chloride 101 96-108 mmol/L Carbon Dioxide 24 22-29 mmol/L Test was veri fied by repeat analysis. Anion Gap 14 12-20 Blood Urea Nitrogen 32 9-16 mg/dL Creatinine 1.23 0.5-1.4 mg/dL Creatinine Clr Calc Pharmacy 39.1 eGFR (calculated from the MDRD study equation) and eCrCl (calculated from the Cockcroft-Gault equation) are based on different parameters and may not yield comparable results. If eCrCl result is absurd, please check patient's height/weight. Estimated Glomerular Filt Rate 55 Chronic Kidney Disease: Estimated GFR < 60 mL/min/1.73m2 Severe Kidney Disease: Estimated GFR < 15 mL/min/1.73m2 Glucose Random 239 60-115 mg/dL Calcium 8.8 8.4-10.2 mg/dL Magnesium Reviewed date:05/01/2025 04:21:23 PM Interpretation: Performing Lab:[facility], [address] [place] [phone] Notes/Report: Magnesium 1.8 1.6-2.6 mg/dL Glucose, Whole Blood Reviewed date:05/01/2025 04:24:47 PM Interpretation: Performing Lab:[facility], [address] [place] [phone] Notes/Report: Glucose, Whole Blood 78 60-115 mg/dL METER # : [id number] Glucose, Whole Blood Reviewed date:05/01/2025 04:14:17 PM Interpretation: Performing Lab:[facility], [address] [place] [phone] Notes/Report: Glucose, Whole Blood 253 60-115 mg/dL METER # : [id number] Glucose, Whole Blood Reviewed date:05/01/2025 04:23:12 PM Interpretation: Performing Lab:[facility], [address] [place] [phone] Notes/Report: Glucose, Whole Blood 102 60-115 mg/dL METER # : [id number] Glucose, Whole Blood Reviewed date:05/03/2025 01:11:03 PM Interpretation: Performing Lab:[facility], [address] [place] [phone] Notes/Report: Glucose, Whole Blood 241 60-115 mg/dL METER # : [id number] Complete Blood Count no Diff Reviewed date:05/03/2025 01:11:03 PM Interpretation: Performing Lab:[facility], [address] [place] [phone] Notes/Report: White Blood Count 9.6 4.8-10.8 X10*3/uL Red Blood Count 4.13 4.60-5.80 X10*6/uL Hemoglobin 13.6 14.0-18.0 g/dl Hematocrit 39.8 42.0-52.0 % Mean Corpuscular Volume 96.4 80.0-98.0 fL Mean Corpuscular Hemoglobin 32.9 27.0-33.0 pg Mean Corpuscular HGB Conc 34.2 31.0-36.0 g/dl Red Cell Distribution Width 14.0 11.0-16.0 % Platelet Count 125 160-400 X10*3/uL Mean Platelet Volume 10.6 9.4-12.4 fL NRBC Pct Auto 0.0 0.0-0.2 /100WBC NRBC Abs Auto 0.000 0.0-0.012 X10*3/uL Basic Metabolic Panel Reviewed date:05/03/2025 01:11:03 PM Interpretation: Performing Lab:[address] [address] Notes/Report: Sodium 138 135-145 mmol/L Potassium 4.0 3.3-5.1 mmol/L Chloride 104 96-108 mmol/L Carbon Dioxide 26 22-29 mmol/L Anion Gap 12 12-20 Blood Urea Nitrogen 25 9-16 mg/dL Creatinine 1.03 0.5-1.4 mg/dL Creatinine Clr Calc Pharmacy 46.6 eGFR (calculated from the MDRD study equation) and eCrCl (calculated from the Cockcroft-Gault equation) are based on different parameters and may not yield comparable results. If eCrCl result is absurd, please check patient's height/weight. Estimated Glomerular Filt Rate > 60 Chronic Kidney Disease: Estimated GFR < 60 mL/min/1.73m2 Severe Kidney Disease: Estimated GFR < 15 mL/min/1.73m2 Glucose Random 95 60-115 mg/dL Calcium 8.8 8.4-10.2 mg/dL Magnesium Reviewed date:05/03/2025 01:11:03 PM Interpretation: Performing Lab:[address] [address] Notes/Report: Magnesium 1.9 1.6-2.6 mg/dL Glucose, Whole Blood Reviewed date:05/03/2025 01:11:03 PM Interpretation: Performing Lab:[facility], [address] [place] [phone] Notes/Report: Glucose, Whole Blood 102 60-115 mg/dL METER # : [id number] Glucose, Whole Blood Reviewed date:05/03/2025 01:11:03 PM Interpretation: Performing Lab:[facility], [address] [place] [address] Notes/Report: Glucose, Whole Blood 310 60-115 mg/dL METER # : [id number] Glucose, Whole Blood Reviewed date:05/03/2025 01:11:03 PM Interpretation: Performing Lab:[facility], [address] [place] [address] Notes/Report: Glucose, Whole Blood 192 60-115 mg/dL METER # : [id number] Glucose, Whole Blood Reviewed date:05/03/2025 01:11:03 PM Interpretation: Performing Lab:[facility], [address] [place] [address] Notes/Report: Glucose, Whole Blood 213 60-115 mg/dL METER # : [id number] Glucose, Whole Blood Reviewed date:05/03/2025 01:11:03 PM Interpretation: Performing Lab:[facility], [address] [place] [address] Notes/Report: Glucose, Whole Blood 88 60-115 mg/dL METER # : [id number] XR hip RT w PEL1V Reviewed date:05/03/2025 01:11:03 PM Interpretation: Performing Lab: Notes/Report: [address] [address] XRay Report Signed Patient: Delia Chávez MR#: [id number] : 1935 Acct:[id number] Age/Sex: 89 / M ADM Date: 04/30/25 Loc: [facility] 484-[address]: Mani Da Silva MD Ordering Physician: Mani Da Silva MD Date of Service: 05/02/25 Procedure(s): XR hip RT w PEL1V Accession Number(s): [id number] cc: Orestes Alex MD; Mani Da Silva MD Reason for Exam: fall, pain CLINICAL HISTORY: fall, pain 3 view, pelvis and right hip Comparison: None provided Findings: The bones are intact. No significant arthritic change of the hips. The soft tissues are unremarkable. IMPRESSION: No acute findings. This document has been electronically signed by: Ney Tao MD on 05/03/2025 07:48:28 Dictated By: Ney Tao MD Signed By: <Electronically signed by Ney Tao MD in OV> 05/03/2549 DD/ 7 TD/TT: 05/03/25747 Bed Rubber: [address] [address] XRay Report Signed Patient: Delia Chávez MR#: [id number] : 1935 Acct:[id number] Age/Sex: 89 / M ADM Date: 04/30/25 Loc: [facility] 484-[address]: Miguel Da Silva MD Ordering Physician: Mani Da Silva MD Date of Service: 05/02/25 Procedure(s): XR hip RT w PEL1V Accession Number(s): [id number] cc: Orestes Alex MD; Mani Da Silva MD Reason for Exam: fal l, pain CLINICAL HISTORY: fa ll, pain 3 view, pelvis and r ight hip Comparison: None provided Findings: The bones are intact. No significant arthr itic change of the hips. The soft tissues are unremarkable. IMPRESSION: No acute findings. This document has be en electronically signed by: Ney Tao MD on 05/03/2025 07:48:28 Dictated By: Sis Tao MD Signed By: <Electronically signed by Ney Tao MD in OV> 05/03/2549 DD/ 7 TD/TT: 05/03/25747 Bed Rubber: Glucose, Whole Blood Reviewed date:05/03/2025 01:11:03 PM Interpretation: Performing Lab:[facility], [address] [place] [address] Notes/Report: Glucose, Whole Blood 295 60-115 mg/dL METER # : [id number] Reason For Referral No Information Medications Medication SIG (Take, Route, Frequency, Duration) Notes Start Date End Date Status FreeStyle Lancets - USE TO TEST BLOOD SAINZ GAR FOUR TIMES DAILY for 90 Active metFORMIN HCl 500 MG 1 tab Orally Twice a day for 90 days Active FeroSul 325 (65 Fe) MG TAKE 1 TABLET BY MOUTH EVERY DAY Orally for 90 days Active Farxiga 5 MG 1 tablet Orally Once a day for 90 days 05/28/2025 Active Metoprolol Succinate ER 25 MG 1 tablet Orally Once a day Active Accu-Chek Suzanne Plus 0 DIRECTED DAILY IN VITRO 90 Active Furosemide 40 MG TAKE 1 TABLET BY ETELVINA TH EVERY DAY Active FreeStyle Lite Test - USE TO TEST BLOOD SUGAR FOUR TIMES DAILY for 100 Active Dilt-XR 180 MG 1 capsule in the mor delores on an empty stomach Orally Once a day for 30 days Active Amoxicillin 500 MG TAKE 4 CAPSULES BY M OUTH 1 HOUR BEFORE DENTAL APPOINTMENT FOR 1 DAY for 1 Active Levothyroxine Sodium 125 MCG TAKE 1 TABLET EVERY MORNINGON AN EMPTY STOMACH Orally Once a day for 90 days Active Tamsulosin HCl 0.4 MG TAKE 1 CAPSULE ONC E DAILY DIRECTED for 90 Active Atorvastatin Calcium 80 MG [...] Administe red Fluarix Quadrivalent IM Intramuscular 03/21/2016 Administjessi red TDaP IM Intramuscular 03/31/2016 Administered Fluarix Quadrivalent IM Intramuscular 02/13/2017 Administe red Shingrix IM Intramuscular 12/06/2017 Administered [facility] Kory Rosario Fluarix Quadrivalent IM Intramuscular 03/05/2018 Administjessi red Shingrix Unknown 02/11/2018 Administered PPSV23 (Pnemovax) IM Intramuscular 04/16/2018 Administered Fluarix Quadrivalent IM Intramuscular 03/03/2019 Administe red Influenza High Dose IM Intramuscular 02/20/2020 Administer ed Covid Vaccine Unknown 07/16/2020 Administered [facility] Covid Vaccine Unknown 08/06/2020 Administered [...] W/U Status Risk Notes Problem Atrial fibrillation (50260525) Atrial fibrillation (I48.91) Active confirmed Problem 578221471 Thrombocytopenia (D69.6) Active confirmed Problem 85836550 Lymphocytosis (D72.820) Active confirmed Problem 82498798 Prostatism (N40.0) Active confirmed Problem Insomnia (236495604) Insomnia (G47.00) Active confirmed Problem Congestive heart failure (94949256) CHF (congestive heart failure) (I50.9) Active confirmed Problem 49157728 Hypercalcemia (E83.52) Active confirme d Problem 5092882 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 Problem 98936385 Essential hypert ension (I10) Active confirmed Problem 106897726 Acquired hypothyroidism (E03.9) Active confirmed Problem 33561041 Type 2 diabetes mellitus without complication (E11.9) Active confirmed Problem 729107639 Hypoglycemia (E16.2) Active confirmed Problem 75133551 Iron deficiency anemia, unspecified iron deficiency anemia type (D50.9) Active confirmed Problem 172413576 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 Problem Aortic valve disorder (7842246) Severe aortic stenosis (I35.0) Active confirmed Problem 355518768 Rising PSA level (R97.20) Active confirmed Problem 559142064 Pure hypercholesterolemia (E78.00) Active confirmed Problem 895004502 Imbalance (R26.89) Active confirmed Problem 150829494 Frequent falls (R29.6) Active confirm ed Problem History of heart valve repair with prosthesis (82189766843211 8) H/O aortic valve replacement (Z95.2) Active confirmed Problem 49909000 Aneurysm artery, 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 Vital Signs Blood pressure diastolic 50 mm Hg 05/28/2025 howard ght is down 7 pounds since 03-24-25 Height 67 in 05/28/2025 weight is down 7 pounds since 03-24-25 Blood pressure systolic 102 mm Hg 05/28/2025 weig ht is down 7 pounds since 03-24-25 Weight 148 lbs 05/28/2025 weight is down 7 pounds since 03-24-25 BMI 23.18 kg/m2 05/28/2025 weight is down 7 pounds since 03-24-25 Encounters Encounter Location Date Provider Diagnosis Orestes Alex MD [address] [place] [address] [id number] 06/20/2024 Orestes Alex Acquired hypothyroid ism E03.9 ; Type 2 diabetes mellitus without complication E11.9 ; Prostatism N40.0 ; Essential hypertension I10 ; Pure hypercholesterolemia E78.00 and Lymphocytosis D72.820 Orestes Alex MD [address] [place] [address] [id number] 07/24/2024 Orestes Alex Elevated BUN R79.9 Orestes Alex MD [address] [place] [address] [id number] 12/01/2024 Orestes Alex Pure hypercholestero lemia E78.00 Orestes Alex MD [address] [place] [address] [id number] 01/09/2025 Orestes Alex Elevated LFTs R79.89 Orestes Alex MD [address] [place] [address] [id number] 02/13/2025 Orestes Alex Elevated liver enzym es R74.8 and Encounter for administration of vaccine Z23 Orestes Alex MD [address] [place] [address] [id number] 06/27/2024 Orestes Alex Elevated BUN R79.9 ; Type 2 diabetes mellitus without complication E11.9 ; Essential hypertension I10 ; Prostatism N40.0 ; Pure hypercholesterolemia E78.00 ; Colon cancer screening Z12.11 ; Depression screening Z13.31 and Atrial fibrillation I48.91 Orestes Alex MD [address] [place] [address] [id number] 08/25/2024 Orestes Kallier Type 2 diabetes [place] itus without complication E11.9 and Insomnia G47.00 Orestes Alex MD [address] [place] [address] [id number] 12/04/2024 Orestes Belenardier Type 2 diabetes [place] itus without complication E11.9 ; Acquired hypothyroidism E03.9 ; Atrial fibrillation I48.91 ; Pure hypercholesterolemia E78.00 and Essential hypertension I10 Orestes Alex MD [address] [place] [address] [id number] 01/09/2025 Orestes Belenardier Type 2 diabetes [place] itus without complication E11.9 ; CHF (congestive heart failure) I50.9 and Lung mass R91.8 Orestes Alex MD [address] [place] [address] [id number] 01/20/2025 Orestes Belenardier Type 2 diabetes [place] itus without complication E11.9 and Pneumonia J18.9 Orestes Alex MD [address] [place] [address] [id number] 03/24/2025 Orestes Belenardier Type 2 diabetes [place] itus without complication E11.9 and CHF (congestive heart failure) I50.9 Orestes Alex MD [address] [place] [address] [id number] 05/28/2025 Orestes Alex Type 2 diabetes [place] itus without complication E11.9 Orestes Alex MD [address] [place] [address] [id number] 10/02/2024 Orestes Alex MD [address] [place] [address] [id number] 12/25/2024 Orestes Gloverardilisa Pneumonia J18.9 Orestes Alex MD [address] [place] [address] [id number] 12/31/2024 Orestes Alex MD [address] [place] [address] [id number] 02/02/2025 Orestes Alex MD [address] [place] [address] [id number] 02/17/2025 Orestes Gloverardilisa Pneumonia J18.9 Orestes Alex MD [address] [place] [address] [id number] 03/05/2025 Orestes Alex MD [address] [place] [address] [id number] 03/05/2025 Orestes Alex MD [address] [place] [address] [id number] 05/15/2025 Orestes Alex Assessments Encounter Date Diagnosis (ICD [...] verbalized understanding of instructions to dc medication 05/28/2025 Type 2 diabetes mellitus without complication (ICD-10 - E11.9) to restart the ;metformin at 2 pills twice a day and stop the insuling, patient/caregive r verbalized undertsnading of medication and directions for use 12/25/2024 Pneumonia (ICD-10 - J18.9) order made [...] Treatment Pending Test Test Name Order Date ECHO 05/23/2021 XR chest 2V 02/17/2025 XR chest 2V 12/25/2024 Blood Urea Nitrogen 07/24/2024 Creatinine 07/24/2024 Future Test Test Name Order Date XR CHEST 2 VIEW PA & LAT 02/17/2025 Next Appt Details Provider Name:Orestes javier, 06/25/2025 01:30:00 PM, [address] [place] [address], [address], [phone], Provider Name:Orestes silvar, 06/26/2025 07:15:00 AM, [address] [place] [address], [place] [address], [place], [place], [phone], Provider Name:Orestes Linda ier, 07/03/2025 01:30:00 PM, [address] [place] [address], [phone], Insurance Providers Payer Name Payer Address Payer Phone Subscriber Number Group Number Insured Name Patient Relationship to Insured Coverage Start Date Coverage End Date MEDICARE [facility] [place] [address] [place] [address] [id number] Delia Chávez Self - patient is the insured [employer] [place] [address] [place] [address] [id number] Saira Delia Self - patient is the insured Medical (General) History Medical History History ICD Code Hypothyroidism type II diabetes hypercholesterolemia colonoscopy 2008 not to have any more; C olonoscopy 01/09/19 - Dr. Allen cardiac cath october 2016 entirely normal sitiglip is esteban
--- OUTSIDE RECORDS SUMMARY | 2025-06-05 11:52 | XMS_ITS | Encounter Summary ---
Author Organization [facility] Address [address] [place] [address] Care Team Providers Care Tungsten Refiner Name Role Phone Evgeny Perry MD Primary Care Provider [phone] Encounter Details Date Type Department Care Team (Late st Contact Info) Description 05/04/2025 Lab Requisition [facility] - Main Lab [address] [facility] [place] [address] Evgeny Perry MD [address] [place], [place] [id number] Painful micturition, unspecified Social History Tobacco Use Types Packs/Day Years [...] Procedure Name Priority Date/Time Associated Diagnosis Comments URINALYSIS WITH REFLEX MICROSCOPIC Routine 05/03/2025 11:20 PM EST Painful micturition, unspecified URINALYSIS WITH REFLEX MICROSCOPIC Routine 05/03/2025 11:20 PM EST Painful micturition, unspecified CULTURE URINE Routine 05/03/2025 11:20 PM EST Painful micturition, unspecified documented in this encounter Results * (ABNORMAL) Urinalysis with reflex microscopic (05/03/2025 11:20 PM EST) Specific [place] Urine 1.022 1.003 - 1.030 LAB URINALYSIS - AUTOMATED METHOD 05/04/2025 12:40 PM EST [facility] pH, Urine 6.0 5.0 - 8.0 pH LAB URINALYSIS - AUTOMATED METHOD 05/04/2025 12:40 PM [facility] Leukocytes, Urine Negative Negative LAB URINALYSIS - AUTOMATED METHOD 05/04/2025 12:40 PM [facility] Nitrite, Urine Negative Negative LAB URINALYSIS - AUTOMATED METHOD 05/04/2025 12:40 PM [facility] Protein, Urine 30(A) <=Trace mg/dL LAB URINALYSIS - AUTOMATED METHOD 05/04/2025 12:40 PM [facility] Glucose, Urine >=1000(A) Negative mg/dL LAB URINALYSIS - AUTOMATED METHOD 05/04/2025 12:40 PM [facility] Ketones, Urine Negative Negative mg/dL LAB URINALYSIS - AUTOMATED METHOD 05/04/2025 12:40 PM [facility] Urobilinogen , Urine 1.0 0.2 - 1.0 mg/dL LAB URINALYSIS - AUTOMATED METHOD 05/04/2025 12:40 PM [facility] Bilirubin, Urine Negative Negative LAB URINALYSIS - AUTOMATED METHOD 05/04/2025 12:40 PM [facility] Blood, Urine Negative Negative LAB URINALYSIS - AUTOMATED METHOD 05/04/2025 12:40 PM [facility] RBC, Urine 2 0 - 4 /HPF 05/04/2025 12:40 PM [facility] WBC, Urine 2 0 - 4 /HPF 05/04/2025 12:40 PM [facility] Squamous Epithelial, Urine 1 0 - 60 /LPF 05/04/2025 12:40 PM [facility] Bacteria, Urine Negative Negative /HPF 05/04/2025 12:40 PM [facility] Urine Urine specimen obtained by clean catch procedure / Unknown Non-blood Collection / Unknown 05/03/2025 11:20 PM EST 05/04/2025 11:54 AM EST us Evgeny Perry MD LAB URINE ORDERABLES Final Resul t Performing Organization Address [facility]/ZIP Co de Phone Number [facility] [address] [place] [address], [place] [phone] * Culture urine (05/03/2025 11:20 PM EST) Culture, Urine No growth 05/05/2025 10:41 AM EST [facility] Urine Urine specimen obtained by clean catch procedure / Unknown Non-blood Collection / Unknown 05/03/2025 11:20 PM EST 05/04/2025 11:54 AM EST Evgeny Perry MD LAB MICROBIOLOGY - GENERAL ORDER JAS Final Result Performing Organization Address [facility] Co de Phone Number [facility] [address] [place] [address], [place] [phone] documented in this encounter Visit Diagnoses Diagnosis Painful micturition, unspecified documented in this encounter Care Teams Tungsten Refiner Relationship Specialty Start Date End Date Evgeny Perry MD [address] [place] [address] [address] [place] [address] PCP - General Geriatric Medicine 05/04/25 documented as of this encounter
[2025-06-05 12:38] LABS: Resp Syncy Virus RNA Qual PCR NEGATIVE (Negative); SARS COV2 PCR INHOUSE NEGATIVE (Negative)
[2025-06-05 13:22] VITALS: BP 129/52; PULSE 84; RESP 18; O2SAT 94
--- NOTE | 2025-06-05 13:24 | PC.NURSE ---
No complaints. Resting in bed. Able to bend knees butpainful right upper thigh.
--- NOTE | 2025-06-05 14:28 | MHC.CM.ED ---
Received case management consult from Dr Aguilera. Patient came to the ER due to weakness. Work up essentially negative. Physical therapy eval is pending. Met with patient in regards to discharge planning. Patient was admitted to [facility] for STR after an inpatient admission at [facility]. Patient was d/c'd from [facility] on 05/14. [facility] was arranged. Patient agreeable to referral to [facility]. Continue to monitor for d/c needs.
[2025-06-05 16:29] LABS: Appearance Urine Turbid; Glucose Urine UA 500 mg/dL (Negative); PH 5.5 (5.0-9.0); Specific Gravity - Urine 1.015 (1.005-1.025); UMIC TRIGGER UACC YES
[2025-06-05 16:48] LABS: UACC Culture Trigger YES
--- NOTE | 2025-06-05 17:37 | PHA.MEDREC ---
Pharmacy Consult ? Medication Reconciliation Pharmacy has completed the medication reconciliation. Reviewed med rec done by nursing, matches claims and med records.
[2025-06-05 20:18] VITALS: BP 151/85; PULSE 123; RESP 20; TEMP 36.4; O2SAT 96
[2025-06-05 21:20] LABS: Glucose, Whole Blood 341 mg/dL (60-115)
--- NOTE | 2025-06-05 21:20 | MHC.EDTECH ---
Checked pts sugar. SUgar was 344. RN aware
[2025-06-05 21:39] VITALS: BP 159/96
[2025-06-05 21:40] VITALS: BP 159/96; PULSE 125
[2025-06-05] MEDS: Metoprolol Succinate ER 50 MG TAB.ER.24H PO (21:40)
[2025-06-05] MEDS: Insulin Glargine,Hum.rec.anlog 100 UNIT/ML 10 ML VIAL 10 UNIT SUBCUT (21:41)
[2025-06-06] VITALS (11 sets, daily range): BP systolic 93–151; BP diastolic 39–87; PULSE 65–132; RESP 14–20; TEMP 36.4–37.3; O2SAT 92–96; BMI 20.7; BMI 20.5
--- NOTE | 2025-06-06 00:54 | MHC.EDTECH ---
Emptied pts purewik container. Pt had 950 mL of urine
--- NOTE | 2025-06-06 00:58 | ECG_ITS ---
Test Reason : TACHY Blood Pressure : */* mmHG Vent. Rate : 132 BPM Atrial Rate : 132 BPM P-R Int : 208 ms QRS Dur : 110 ms QT Int : 292 ms P-R-T Axes : 77 -56 92 degrees QTcB Int : 432 ms Atrial flutter with rapid ventricular response Left axis deviation Minimal voltage criteria for LVH, may be normal variant ( Erick product ) Abnormal QRS-T angle, consider primary T wave abnormality Abnormal ECG When compared with ECG of 05-Jun-2025 10:45, Vent. rate has increased Vent. rate has increased by 54 bpm T wave inversion now evident in Lateral leads Referred By: Tirso Sood Electronically Signed By: WINTER PACE MD
--- NOTE | 2025-06-06 01:06 | ECG_ITS ---
Test Reason : TACHY Blood Pressure : */* mmHG Vent. Rate : 131 BPM Atrial Rate : 131 BPM P-R Int : 200 ms QRS Dur : 114 ms QT Int : 304 ms P-R-T Axes : 96 -58 97 degrees QTcB Int : 448 ms Atrial flutter Pulmonary disease pattern Left anterior fascicular block Minimal voltage criteria for LVH, may be normal variant ( [place] product ) Nonspecific ST and T wave abnormality Abnormal ECG When compared with ECG of 06-Jun-2025 00:59, No significant change was found Referred By: Tirso Sood Electronically Signed By: WINTER PACE MD
[2025-06-06] MEDS: dilTIAZem HCL CD 180 MG CAP.ER.24H PO ×2 (01:34→08:15)
[2025-06-06 01:40] LABS: MANUAL DIFF FLAG NO
[2025-06-06 01:41] LABS: Hematocrit 35.9 % (42.0-52.0); Hemoglobin 12.1 g/dl (14.0-18.0); Imm Gran Abs Auto 0.04 X10*3/uL (0.00-0.03); Imm Gran Pct Auto 0.5 % (0.0-0.4); Lymphocytes Absolute Auto 1.8 X10*3/uL (1.2-4.9); Mean Corpuscular HGB Conc 33.7 g/dl (31.0-36.0); Mean Corpuscular Hemoglobin 33.7 pg (27.0-33.0); Mean Corpuscular Volume 100.0 fL (80.0-98.0); NRBC Abs Auto 0.000 X10*3/uL (0.0-0.012); NRBC Pct Auto 0.0 /100WBC (0.0-0.2); Platelet Count 180 X10*3/uL (160-400); Red Blood Count 3.59 X10*6/uL (4.60-5.80); White Blood Count 8.2 X10*3/uL (4.8-10.8)
[2025-06-06 01:59] LABS: Alanine Aminotransferase 42 U/L (0-40); Albumin Level 4.2 g/dL (3.5-5.0); Alkaline Phosphatase 177 U/L (39-117); Anion Gap 16 (12-20); Aspartate Amino Transferase 58 U/L (5-37); Blood Urea Nitrogen 38 mg/dL (9-16); Calcium 9.9 mg/dL (8.4-10.2); Carbon Dioxide 19 mmol/L (22-29); Chloride 107 mmol/L (96-108); Creatinine Clr Calc Pharmacy 39.0; Estimated Glomerular Filt Rate 53; Potassium 4.2 mmol/L (3.3-5.1); Sodium 138 mmol/L (135-145); Total Protein 7.3 g/dL (6.5-8.0)
[2025-06-06 03:39] LABS: Reflex Lactate? Lactic Acid Added
[2025-06-06 04:15] LABS: ~Lactic Acid-LAB USE ONLY 2.6 mmol/L (0.5-2.0)
--- NOTE | 2025-06-06 05:26 | MHC.EDTECH ---
Emptied pts purewick container, Pt had 1200 mL of urine, Pt was incontinent of stool. Cleaned him up and repositioned him.
[2025-06-06 05:50] LABS: Reflex Lactate? 2 Y
[2025-06-06 06:43] LABS: ~Lactic Acid-LAB USE ONLY 3.1 mmol/L (0.5-2.0)
[2025-06-06] MEDS: Lactated Ringers 500 ML 999 ML IV (07:32)
--- NOTE | 2025-06-06 07:54 | P.HPHOSP_ITS ---
History of Present Illness Date of Service: 06/06/25 Attending physician on admission: Dieter Rodriguez Chief Complaint: weakness This is an 89 year old male who presented to the ED on 06/05 due to weakness. He reportedly collapsed to the floor and was unable to get up. His son helped him to the floor and he didn't hit his head or lose consciousness. He had no other specific complaints. He was placed on physician observation with a plan for PT evaluation and possible placement. Overnight he became tachycardic and although he has a history of atrial flutter it appeared more to be sinus tachycardia. A urinalysis was obtained which was concerning for possible UTI, he received a dose of IV ceftriaxone. Lactic acid was checked and was elevated at 3.7. He was treated with 30 cc/kg bolus of IV fluid and lactic acid began trending down. He will be admitted for further mangement of UTI. He denies urinary symptoms, fevers or chills. He reports normal appetitie, but did report a day of diarrhea without abdominal pain. Review of Systems 2 Review of Systems: Yes all other systems are reviewed and are negative Constitutional: Constitutional: Denies chills and Denies fever(s) Cardiovascular: Cardiovascular: Denies chest pain, Denies palpitations and Denies dyspnea Respiratory: Respiratory: Denies cough and Denies dyspnea Gastrointestinal: Gastrointestinal: Denies abdominal pain, Denies nausea and Denies vomiting Endocrine: Endocrine: Denies palpitations [facility] Medical History Atrial flutter Hypercalcemia TAYLOR (acute kidney injury) Acute hyperglycemia HTN (hypertension) Aortic stenosis Arthritis of right knee Calcific tendinitis of left shoulder Orthostasis (~2014) Diabetes mellitus (~2014) Knee effusion (~11/15/14) Hyperlipidemia (~2012) Hypothyroidism (~2012) Family History Father No problems noted. 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 Meds Allergies Allergy/AdvReac Type Severity Reaction Status Date / Time No Known Allergies (No Known Allergy Verified 06/05/25 11:00 Allergies*) Active Medications: Current Medications Acetaminophen (Acetaminophen 325 Mg Tablet) 650 mg PO Q6H PRN PRN Reason: Pain, Mild 1-3,fever,headache Apixaban (Apixaban 5 Mg Tablet) 5 mg PO BID [facility] Stop: 07/10/25 09:00 Last Admin: 06/05/25 21:40 Dose: 5 mg Ascorbic Acid (Ascorbic Acid 500 Mg Tablet) 500 mg PO BEDTIME [facility] Last Admin: 06/05/25 21:40 Dose: 500 mg Atorvastatin Calcium (Atorvastatin Calcium 80 Mg Tablet) 80 mg PO BEDTIME [facility] Last Admin: 06/05/25 21:39 Dose: 80 mg Calcium Carbonate (Calcium Carbonate 750 Mg Tab.Chew) 750 mg PO Q4H PRN PRN Reason: Heartburn Diltiazem HCl (Diltiazem Hcl Cd 180 Mg Cap.Er.24h) 180 mg PO DAILY [facility]; Protocol Ferrous Sulfate (Ferrous Sulfate 324 Mg Tablet.Dr) 325 mg PO DAILY [facility] Furosemide (Furosemide 40 Mg Tablet) 40 mg PO BID [facility]; Protocol Last Admin: 06/05/25 21:39 Dose: 40 mg Insulin Glargine (Insulin Glargine,Hum.Rec.Anlog 100 Unit/Ml 10 Ml Vial) 10 unit SUBCUT BID [facility] Last Admin: 06/05/25 21:41 Dose: 10 unit Insulin Human Lispro (Insulin Lispro 100 Unit/Ml 3 Ml Vial) 0 unit SUBCUT QIDACHS [facility]; Protocol Last Admin: 06/06/25 07:36 Dose: Not Given Levothyroxine Sodium (Levothyroxine Sodium 125 Mcg Tablet) 125 mcg PO DAILY@0600 [facility] Last Admin: 06/06/25 06:21 Dose: 125 mcg Magnesium Hydroxide (Milk Of Magnesia 30 Ml Oral.Susp) 30 ml PO DAILY PRN PRN Reason: Constipation Melatonin (Melatonin 3 Mg Tablet) 6 mg PO BEDTIME PRN PRN Reason: Insomnia Metformin HCl (Metformin Hcl 1,000 Mg Tablet) 1,000 mg PO BID PRITI On Hold: 06/06/25 06:44 Last Admin: 06/05/25 21:40 Dose: 1,000 mg Metoprolol Succinate (Metoprolol Succinate Er 50 Mg Tab.Er.24h) 50 mg PO BEDTIME [facility]; Protocol Last Admin: 06/05/25 21:40 Dose: 50 mg Sodium Chloride (0.9 % Sodium Chloride Flush 3 Ml Syringe) [facility] Tamsulosin HCl (Tamsulosin Hcl 0.4 Mg Capsule) 0.4 mg PO BEDTIME [facility] Last Admin: 06/05/25 21:39 Dose: 0.4 mg Vitamin D (Cholecalciferol (Vitamin D3) 25 Mcg Tablet) 50 mcg PO BEDTIME [facility] Last Admin: 06/05/25 21:40 Dose: 50 mcg Home Medications ?Medication ?Instructions ?Recorded ?Confirmed ?Last Taken ?Type atorvastatin 80 mg tablet 80 mg PO BEDTIME 04/02/2012/24/24 History tamsulosin 0.4 mg capsule 0.4 mg PO BEDTIME 04/02/2008/06/24 12/24/24 History metformin 500 mg tablet 1,000 mg PO BID 09/20/2112/24/24 History blood sugar diagnostic (FreeStyle #10 ea 08/28/2205/12 Unknown History Lite Strips) levothyroxine 125 mcg tablet 125 mcg PO DAILY@0600 06/05/25 12/24/24 History cholecalciferol (vitamin D3) 50 50 mcg PO BEDTIME 11/0906/05/25 12/23/24 History mcg (2,000 unit) tablet (Vitamin D3) coenzyme Q10 100 mg capsule 200 mg PO BEDTIME 11/24/22 06/05/25 12/24/24 History (CoQ-10) ferrous sulfate 325 mg (65 mg 325 mg PO DAILY 11/24/22 06/05/25 12/24/24 History iron) tablet (FeroSul) omega 6-vil-cmw-fish oil 1,000 mg 1 cap PO DAILY 11/2406/05/25 12/24/24 History (120 mg-180 mg) capsule (Fish Oil) ascorbic acid (vitamin C) 500 mg 500 mg PO BEDTIME 06/05/25 12/24/24 History tablet (Vitamin C) diltiazem HCl 180 mg 180 mg PO DAILY 12/25/2412/24/24 History capsule,extended release 24 hr, controlled (DILT-XR) sitagliptin 50 mg tablet 50 mg PO DAILY 12/25/2405/1212/24/24 History Physical Exam 2 Vital Signs and Narrative: Vital Signs: Last Vital Signs Temp 97.7 F 06/06/25 04:36 Pulse 65 06/06/25 04:55 Resp 16 06/06/25 04:55 BP 112/51 L 06/06/25 04:55 Pulse Ox 94 06/06/25 04:55 O2 Del Method Room Air 06/06/25 04:55 BMI result Body Mass Index 22.1 Const: General: cooperative, comfortable, no acute distress, alert and awake Nutritional Appearance: average body habitus Orientation/consciousness: p atient oriented x3 Resp: Effort & Inspection: normal respiratory effort, able to speak in complete sentences, no respiratory distress and no use of accessory muscles Cardio: Rate: regular rate GI: Palpation (GI): Soft to palpation and nontender Neuro: General: patient oriented x3, moves all extremities and CN's II-XI intact bilaterally Extrem: Other: trace ankle edema Results Labs 06/06/25 01:31 06/06/25 01:31 Labs: Laboratory Results - last 24 hr 06/05/25 06/05/25 06/05/25 11:21 16:17 21:13 MCV 101.3 H MCH 34.3 H MCHC 33.9 RDW 17.0 H Plt Count 142 L MPV 9.6 Immature Gran % (Auto) 1.0 H Neut % (Auto) 71.9 Lymph % (Auto) 16.9 L [place] % (Auto) 9.0 Eos % (Auto) 0.8 Baso % (Auto) 0.4 Lymph # (Auto) 1.2 [place] # (Auto) 0.7 Eos # (Auto) 0.1 Baso # (Auto) 0.0 Abs Immat Gran (auto) 0.07 H Absolute Neuts (auto) 5.2 Absolute Nucleated RBC 0.000 Nucleated RBC % (auto) 0.0 Hold Blue Top SEE NOTE Anion Gap 15 Estim Creat Clear Calc 26.9 Estimated GFR 35 POC Glucose 341 H Random Glucose 264 H Lactic Acid Lactic Acid F/U @ 2Hr Lactic Acid F/U @ 4Hr Calcium 8.9 Total Bilirubin 0.8 AST 28 ALT 27 Alkaline Phosphatase 138 H Troponin I High Sens 10.5 D Total Protein 6.3 L Albumin 3.6 Urine Color Yellow Urine Appearance Turbid Urine pH 5.5 Ur Specific [place] 1.015 Urine Protein 100 (2+) H Urine Glucose (UA) 500 H Urine Ketones Negative Urine Blood Moderate (2+) H Urine Nitrite Negative Ur Leukocyte Esterase Large (3+) H Urine RBC 0-2 Urine WBC >50 H Ur Squamous Epith Cells 0-2 Urine Bacteria 1+ Hyaline Casts 0-2 Influenza Type A (PCR) NEGATIVE Influenza Type B (PCR) NEGATIVE RSV RNA Qual (PCR) NEGATIVE SARS-CoV-2 RNA (RT-PCR) NEGATIVE 06/06/25 06/06/25 06/06/25 01:31 03:45 06:07 MCV 100.0 H MCH 33.7 H MCHC 33.7 RDW 17.5 H Plt Count 180 D MPV 9.6 Immature Gran % (Auto) 0.5 H Neut % (Auto) 64.3 Lymph % (Auto) 22.4 [place] % (Auto) 11.4 H Eos % (Auto) 1.0 Baso % (Auto) 0.4 Lymph # (Auto) 1.8 [place] # (Auto) 0.9 Eos # (Auto) 0.1 Baso # (Auto) 0.0 Abs Immat Gran (auto) 0.04 H Absolute Neuts (auto) 5.3 Absolute Nucleated RBC 0.000 Nucleated RBC % (auto) 0.0 Hold Blue Top Anion Gap 16 Estim Creat Clear Calc 39.0 Estimated GFR 53 POC Glucose Random Glucose 131 H Lactic Acid 3.7 H* Lactic Acid F/U @ 2Hr 2.6 H* Lactic Acid F/U @ 4Hr 3.1 H* Calcium 9.9 D Total Bilirubin 0.8 AST 58 H ALT 42 H Alkaline Phosphatase 177 H Troponin I High Sens Total Protein 7.3 Albumin 4.2 Urine Color Urine Appearance Urine pH Ur Specific [place] Urine Protein Urine Glucose (UA) Urine Ketones Urine Blood Urine Nitrite Ur Leukocyte Esterase Urine RBC Urine WBC Ur Squamous Epith Cells Urine Bacteria Hyaline Casts Influenza Type A (PCR) Influenza Type B (PCR) RSV RNA Qual (PCR) SARS-CoV-2 RNA (RT-PCR) Assessment and Plan (1) Urinary tract infection: Status: Acute Plan This is an 89 year old male with history of IDDM, HFpEF, aflutter on Eliquis, TAVR, HTN, hypothyroidism who initially presented to the ED with weakness found to have probable UTI UTI IV ceftriaxone follow urine cultures acute lactic acidosis type 2 due to dehydration and metformin use. not due to sepsis received IVF TAYLOR on CKD3 improving with IVF follow BMP transaminitis no abdominal pain trend LFTs diarrhea check stool studies if recurrs atrial flutter HR controlled continue metoprolol, diltiazem and Eliquis generalized weakness likely due to dehydration/TAYLOR PT eval for safe disposition Hypothyroidism Continue Synthroid HFpEF hold lasix for now, resume as indicated IDDM hold metformin, sitagliptin continue Lantus SSI, POCs, ADA diet dvt ppx - eliquis Patient will likely require 2 midnight stay in the hospital for management of UTI requiring IV antibiotics and physical therapy evaluation for safe disposition Quality Stroke Does the patient have a stroke diagnosis?: No VTE Prior VTE?: No VTE Risk Level:: Medical - moderate - high VTE Device Contraindication: Treatment Not Indicated VTE Drug Contraindication: N/A - Med Ordered
[2025-06-06 07:58] LABS: Glucose, Whole Blood 123 mg/dL (60-115)
[2025-06-06] MEDS: Ferrous Sulfate 324 MG TABLET.DR 325 MG PO (08:14)
[2025-06-06] MEDS: Insulin Glargine,Hum.rec.anlog 100 UNIT/ML 10 ML VIAL 10 UNIT SUBCUT ×2 (08:17→22:26)
[2025-06-06 13:01] LABS: Glucose, Whole Blood 193 mg/dL (60-115)
[2025-06-06 17:58] LABS: Glucose, Whole Blood 237 mg/dL (60-115)
[2025-06-06] MEDS: Metoprolol Succinate ER 50 MG TAB.ER.24H PO (22:03)
[2025-06-06] MEDS: 0.9 % Sodium Chloride Flush 3 ML SYRINGE IVFLUSH (22:04)
[2025-06-06 22:22] LABS: Glucose, Whole Blood 244 mg/dL (60-115)
[2025-06-07] VITALS (8 sets, daily range): BP systolic 118–170; BP diastolic 58–83; PULSE 67–132; RESP 17–18; TEMP 36.6–37.3; O2SAT 86–94
--- NOTE | 2025-06-07 01:36 | HO.SKINPHOTO ---
Location: Gluteal Fold
--- NOTE | 2025-06-07 03:40 | PC.NURSE ---
Addendum entered by Liliana Lyman RN 06/07/25 04:38: add on to this admission, photo taken upon arrival, foam taken down, redness and few shallow dry open areas noted to inner buttocks, cleansed and foam applied. Redness at ruth rectal area with barrier cream applied. see photo in previous note. Repositioned. Original Note: 2151- New admission, male patient, age 89 with DX UTI, rapid A-Fib in the observation unit. See ED notes for full details. Admitted for ABX therapy with plan for STR. Alert, co-operative, answered all questions appropriately. Noted hearing difficulty and he stated hearing aids at home. Assistance to reposition, HFR protocol as pt has had recent falls at home due to weakness, ambulates with a cane at baseline. Pt lives with his and he stated that she has services at home and his son is active in his care with visits. See admission and MAR for full details.
[2025-06-07 07:50] LABS: Glucose, Whole Blood 134 mg/dL (60-115)
[2025-06-07 07:53] LABS: Hematocrit 30.2 % (42.0-52.0); Hemoglobin 10.1 g/dl (14.0-18.0); Mean Corpuscular HGB Conc 33.4 g/dl (31.0-36.0); Mean Corpuscular Hemoglobin 33.9 pg (27.0-33.0); Mean Corpuscular Volume 101.3 fL (80.0-98.0); NRBC Abs Auto 0.000 X10*3/uL (0.0-0.012); NRBC Pct Auto 0.0 /100WBC (0.0-0.2); Platelet Count 144 X10*3/uL (160-400); Red Blood Count 2.98 X10*6/uL (4.60-5.80); White Blood Count 6.6 X10*3/uL (4.8-10.8)
[2025-06-07 08:02] LABS: Alanine Aminotransferase 30 U/L (0-40); Albumin Level 3.0 g/dL (3.5-5.0); Alkaline Phosphatase 117 U/L (39-117); Anion Gap 11 (12-20); Aspartate Amino Transferase 42 U/L (5-37); Blood Urea Nitrogen 24 mg/dL (9-16); Carbon Dioxide 20 mmol/L (22-29); Chloride 111 mmol/L (96-108); Creatinine Clr Calc Pharmacy 49.8; Estimated Glomerular Filt Rate > 60; Potassium 3.7 mmol/L (3.3-5.1); Sodium 138 mmol/L (135-145); Total Protein 5.4 g/dL (6.5-8.0)
[2025-06-07 08:12] LABS: Calcium 8.2 mg/dL (8.4-10.2)
--- NOTE | 2025-06-07 08:29 | MHC.CM.PN ---
IMM 06/07/25 DX Rapid Afib S/P fall Lives with his . 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 PCP Dr Alex PT keli recommendation is STR Referral sent from ER. [facility] has been referred. He was there for STR. He was discharged earlier this month. Updated clinical information has been sent. Patient will need 3 midnights. DP [facility] via BLS.
[2025-06-07] MEDS: Ferrous Sulfate 324 MG TABLET.DR 325 MG PO (09:34)
[2025-06-07] MEDS: dilTIAZem HCL CD 180 MG CAP.ER.24H PO (09:34)
[2025-06-07] MEDS: Insulin Glargine,Hum.rec.anlog 100 UNIT/ML 10 ML VIAL 10 UNIT SUBCUT ×2 (09:35→20:54)
[2025-06-07] MEDS: 0.9 % Sodium Chloride Flush 3 ML SYRINGE IVFLUSH ×3 (09:36→20:55)
[2025-06-07 11:37] LABS: Glucose, Whole Blood 206 mg/dL (60-115)
--- NOTE | 2025-06-07 14:42 | P.PNIM_ITS ---
Subjective Subjective Date of Service: 06/07/25 Interval History: Still complains of weakness; no dysuric symptoms Review of Systems Denies chest pain Denies shortness of breath Denies nausea vomiting diarrhea Denies fever chills Physical Exam 2 Vital Signs: Vital Signs: Last Vital Signs Temp 98 F 06/07/25 11:21 Pulse 68 06/07/25 11:21 Resp 18 06/07/25 11:21 BP 147/67 H 06/07/25 11:21 Pulse Ox 92 06/07/25 11:21 O2 Del Method Room Air 06/07/25 11:21 BMI result Body Mass Index 20.5 Const: Other: Awake alert no acute distress Resp: Other: Clear to auscultation bilaterally no rales rhonchi or wheezes Cardio: Other: No S4; positive S1-S2; no S3 murmurs rubs or gallops GI: Other: Soft nontender nondistended normoactive bowel sounds Extrem: Other: No edema bilaterally Objective Data Active Medications Acetaminophen (Acetaminophen 325 Mg Tablet) 650 mg PO Q6H PRN PRN Reason: Pain, Mild 1-3,fever,headache Apixaban (Apixaban 5 Mg Tablet) 5 mg PO BID [facility] Stop: 07/10/25 09:00 Last Admin: 06/07/25 09:34 Dose: 5 mg Documented By: RISHABH Ascorbic Acid (Ascorbic Acid 500 Mg Tablet) 500 mg PO BEDTIME [facility] Last Admin: 06/06/25 22:03 Dose: 500 mg Documented By: LAVERNE Atorvastatin Calcium (Atorvastatin Calcium 80 Mg Tablet) 80 mg PO BEDTIME [facility] Last Admin: 06/06/25 22:03 Dose: 80 mg Documented By: LAVERNE Calcium Carbonate (Calcium Carbonate 750 Mg Tab.Chew) 750 mg PO Q4H PRN PRN Reason: Heartburn Diltiazem HCl (Diltiazem Hcl Cd 180 Mg Cap.Er.24h) 180 mg PO DAILY [facility]; Protocol Last Admin: 06/07/25 09:34 Dose: 180 mg Documented By: RISHABH Ferrous Sulfate (Ferrous Sulfate 324 Mg Tablet.Dr) 325 mg PO DAILY [facility] Last Admin: 06/07/25 09:34 Dose: 325 mg Documented By: RISHABH Furosemide (Furosemide 40 Mg Tablet) 40 mg PO BID [facility]; Protocol On Hold: 06/06/25 08:20 Last Admin: 06/06/25 08:15 Dose: 40 mg Documented By: SAURAV Ceftriaxone Sodium 1 gm/ (Sodium Chloride) 50 mls @ 100 mls/hr IV Q24H COUNT [facility]CLUDES [facility] Last Infusion: 06/07/25 01:40 Dose: Infused Documented By: LAVERNE Insulin Glargine (Insulin Glargine,Hum.Rec.Anlog 100 Unit/Ml 10 Ml Vial) 10 unit SUBCUT BID [facility] Last Admin: 06/07/25 09:35 Dose: 10 unit Documented By: RISHABH Insulin Human Lispro (Insulin Lispro 100 Unit/Ml 3 Ml Vial) 0 unit SUBCUT QIDACHS COUNT [facility]CLUDES [facility]; Protocol Last Admin: 06/07/25 11:56 Dose: 4 unit Documented By: RISHABH Levothyroxine Sodium (Levothyroxine Sodium 125 Mcg Tablet) 125 mcg PO DAILY@0600 [facility] Last Admin: 06/07/25 05:46 Dose: 125 mcg Documented By: LAVERNE Magnesium Hydroxide (Milk Of Magnesia 30 Ml Oral.Susp) 30 ml PO DAILY PRN PRN Reason: Constipation Melatonin (Melatonin 3 Mg Tablet) 6 mg PO BEDTIME PRN PRN Reason: Insomnia Metformin HCl (Metformin Hcl 1,000 Mg Tablet) 1,000 mg PO BID [facility] On Hold: 06/06/25 06:44 Last Admin: 06/05/25 21:40 Dose: 1,000 mg Documented By: ISA Metoprolol Succinate (Metoprolol Succinate Er 50 Mg Tab.Er.24h) 50 mg PO BEDTIME [facility]; Protocol Last Admin: 06/06/25 22:03 Dose: 50 mg Documented By: LAVERNE Sodium Chloride (0.9 % Sodium Chloride Flush 3 Ml Syringe) 3 ml IVFLUSH QSHIFT COUNT [facility]CLUDES [facility] Last Admin: 06/07/25 09:36 Dose: 3 ml Documented By: RISHABH Tamsulosin HCl (Tamsulosin Hcl 0.4 Mg Capsule) 0.4 mg PO BEDTIME [facility] Last Admin: 06/06/25 22:04 Dose: 0.4 mg Documented By: LAVERNE Vitamin D (Cholecalciferol (Vitamin D3) 25 Mcg Tablet) 50 mcg PO BEDTIME [facility] Last Admin: 06/06/25 22:04 Dose: 50 mcg Documented By: HO.SEXK Labs 06/07/25 07:20 06/07/25 07:20 Labs: Laboratory Results - last 24 hr 06/06/25 06/06/25 06/07/25 17:51 22:07 07:20 MCV 101.3 H MCH 33.9 H MCHC 33.4 RDW 18.2 H Plt Count 144 L MPV 9.9 Absolute Nucleated RBC 0.000 Nucleated RBC % (auto) 0.0 Anion Gap 11 L Estim Creat Clear Calc 49.8 Estimated GFR > 60 POC Glucose 237 H 244 H Random Glucose 150 H Calcium 8.2 L D Total Bilirubin 0.8 Direct Bilirubin 0.4 AST 42 H ALT 30 Alkaline Phosphatase 117 Total Protein 5.4 L Albumin 3.0 L 06/07/25 06/07/25 07:39 11:24 MCV MCH MCHC RDW Plt Count MPV Absolute Nucleated RBC Nucleated RBC % (auto) Anion Gap Estim Creat Clear Calc Estimated GFR POC Glucose 134 H 206 H Random Glucose Calcium Total Bilirubin Direct Bilirubin AST ALT Alkaline Phosphatase Total Protein Albumin Microbiology Microbiology Results: Microbiology 06/05/25 Unknown Urine Culture - Preliminary Urine clean catch - Clean Catch Midstream Enterococcus/Streptococcus sp 06/06/25 01:42 Blood Culture - Preliminary Blood - Venous No growth after 24 hours. 06/06/25 01:31 Blood Culture - Preliminary Blood - Venous No growth after 24 hours. Assessment and Plan (1) Urinary tract infection: Status: Acute Plan This is an 89 year old male with history of IDDM, HFpEF, aflutter on Eliquis, TAVR, HTN, hypothyroidism who initially presented to the ED with weakness found to have probable UTI 1.UTI -ceftriaxone (1) -follow urine cultures 2.TAYLOR on CKD3 -resolved with volume -follow renals/divalents 3.Atrial flutter -acceptable control on current therapies -continue Eliquis 4.Generalized weakness likely due to dehydration/TAYLOR PT eval for safe disposition 5.IDDM -hold metformin, sitagliptin -lispro correctional scale -adjust as indicated dvt ppx - eliquis Patient will likely require 2 midnight stay in the hospital for management of UTI requiring IV antibiotics and physical therapy evaluation for safe disposition Quality Stroke Does the patient have a stroke diagnosis?: No VTE Prior VTE?: No VTE Risk Level:: Medical - moderate - high VTE Device Contraindication: Treatment Not Indicated VTE Drug Contraindication: N/A - Med Ordered
[2025-06-07 16:38] LABS: Glucose, Whole Blood 144 mg/dL (60-115)
[2025-06-07 20:51] LABS: Glucose, Whole Blood 103 mg/dL (60-115)
[2025-06-07] MEDS: Metoprolol Succinate ER 50 MG TAB.ER.24H PO (20:54)
[2025-06-08] VITALS (7 sets, daily range): BP systolic 103–145; BP diastolic 59–71; PULSE 29–116; RESP 18–22; TEMP 36.6–37.9; O2SAT 90–96; BMI 20.5
[2025-06-08 07:07] LABS: MANUAL DIFF FLAG NO
[2025-06-08 07:14] LABS: Hematocrit 31.0 % (42.0-52.0); Hemoglobin 10.5 g/dl (14.0-18.0); Imm Gran Abs Auto 0.04 X10*3/uL (0.00-0.03); Imm Gran Pct Auto 0.4 % (0.0-0.4); Lymphocytes Absolute Auto 1.6 X10*3/uL (1.2-4.9); Mean Corpuscular HGB Conc 33.9 g/dl (31.0-36.0); Mean Corpuscular Hemoglobin 34.2 pg (27.0-33.0); Mean Corpuscular Volume 101.0 fL (80.0-98.0); NRBC Abs Auto 0.000 X10*3/uL (0.0-0.012); NRBC Pct Auto 0.0 /100WBC (0.0-0.2); Platelet Count 148 X10*3/uL (160-400); Red Blood Count 3.07 X10*6/uL (4.60-5.80); White Blood Count 9.5 X10*3/uL (4.8-10.8)
[2025-06-08 07:40] LABS: Alanine Aminotransferase 67 U/L (0-40); Albumin Level 2.9 g/dL (3.5-5.0); Alkaline Phosphatase 167 U/L (39-117); Anion Gap 12 (12-20); Aspartate Amino Transferase 122 U/L (5-37); Blood Urea Nitrogen 19 mg/dL (9-16); Calcium 7.8 mg/dL (8.4-10.2); Carbon Dioxide 19 mmol/L (22-29); Chloride 109 mmol/L (96-108); Creatinine Clr Calc Pharmacy 54.5; Estimated Glomerular Filt Rate > 60; Potassium 3.7 mmol/L (3.3-5.1); Sodium 136 mmol/L (135-145); Total Protein 5.5 g/dL (6.5-8.0)
[2025-06-08 08:27] LABS: Glucose, Whole Blood 213 mg/dL (60-115)
[2025-06-08] MEDS: dilTIAZem HCL CD 180 MG CAP.ER.24H PO (08:45)
[2025-06-08] MEDS: 0.9 % Sodium Chloride Flush 3 ML SYRINGE IVFLUSH ×2 (08:46→20:28)
[2025-06-08] MEDS: Ferrous Sulfate 324 MG TABLET.DR PO (08:51)
--- NOTE | 2025-06-08 09:19 | HO.WOUND ---
Wound Consult: Initial 89 yr old male admitted to [facility] on 06/06/25 - See progress notes and H&P for detailed history. Wound consult placed for coccyx. Patient agreeable to assessment and photo documentation. Patient noted with DTI to coccyx/sacrum on previous recent admission. Coccyx/sacrum Etiology: Coccyx/sacrum deep tissue pressure injury Present on Admission - in evolution Measurements: 5cm x 5cm x 0.1cm Wound Bed: largely intact deep red nonblanching with central area of superficial skin erosion, moist pink/red base, slightly left with superficial appearing skin loss moist deep purple base. blanchable redness to right buttock - mild MASD noted to buttock/perineum. Drainage / Odor: none Denise wound: ? No Induration, Fluctuance or Warmth noted Pain: none Goals of Treatment: ? triad/foam bilateral heels: intact pink and blanching, elevated on pillow Recommendations: 1. Turn and Reposition every 2 hours and as needed for patient comfort. Use pillows or wedges to support off loading positions. 2. Off Load all bony prominences with use of pillows and heel boots if needed. Apply Preventative foams where needed. 3. Use waffle cushion when up to chair, limit sitting times to 1-2 hours 3. Monitor for incontinence and moisture control, use barrier creams when needed for prevention and treatment. 4. Provide adequate and supplemental nutrition. 5. Order or Continue low air loss mattress. 6. When applicable maintain blood glucose levels per Providers order. Coccyx/sacrum: Off Load Pressure with Q2 hr turns and use of pillows - Cleanse with PH balance spray or wipes, pat dry. ?Apply thin layer of Triad to wound bed. Do not remove all of paste between applications as this may cause further skin damage.? Cover with foam dressing to aid in off loading and protection from friction. Change every 3 days and PRN. Re-consult wound care Nurse for wound deterioration or wound changes.
--- NOTE | 2025-06-08 09:52 | P.CDIM_ITS ---
PROVIDER RESPONSE TEXT: To clarify, the appropriate diagnosis supported by the clinical indicators: Pressure Injury bilateral buttocks Stage 2 QUERY TEXT: PHYSICIAN'S DOCUMENTATION REQUEST Date of Query: 06/08/2025 08:51 AM EST Patient Name: Richard Chávez Admit Date: 06/06/2025 Dear Dieter Rodriguez DO, A review of the medical record indicates additional documentation may be needed. Please review below and update the documentation accordingly. Clinical Indicators: Wound care nursing notes: 06/07/25 - Pressure injury bilateral buttocks Stage 2 Dry & Intact Dressing changed. Based on the above, could you please provide further information regarding the ulcer/wound/injury: Pressure Injury bilateral buttocks Stage 2 Other specifics Other (explain) Clinically unable to determine (explain) Thank you, Shellie Gloria, CCS, CDIS Use of terms such as suspected, likely, concern for, or probable (associated with a specific diagnosis that is being evaluated, monitored, or treated as if it exists) are acceptable and can be coded in the inpatient setting, when documented at the time of discharge. Please use your independent medical judgment in providing your response. THIS QUERY IS PART OF THE PERMANENT MEDICAL RECORD
[2025-06-08 11:39] LABS: Glucose, Whole Blood 145 mg/dL (60-115)
--- NOTE | 2025-06-08 13:12 | MHC.CLN ---
CONSULT PT WITH INCREASED NUTRITION RISK R/T PRESSURE INJURY PO INTAKE 100% X3 MEALS DIET RX: 1800DM -RECOMMEND 2000DM DIET R/T INCREASED KCAL NEEDS TO PROMOTE WOUND HEALING RECOMMEND ADDING ENSURE MAX BID TO PROMOTE WOUND HEALING SUPPLEMENT TO PROVIDE 300KCALS, 60G PROTEIN MONITOR PO INTAKE AND ENCOURAGE SUPPLEMENTS SEE FULL ASSESSMENT
--- NOTE | 2025-06-08 14:30 | HO.PM.IMPN ---
Subjective Subjective Date of Service: 06/08/25 Interval History: Essentially no change since admission. No acute issues on monitor Review of Systems Denies chest pain Denies shortness of breath Denies nausea vomiting diarrhea Denies fever chills Physical Exam Vital Signs: Vital Signs: Last Vital Signs Temp 97.9 F 06/08/25 11:49 Pulse 67 06/08/25 11:49 Resp 20 06/08/25 11:49 BP 111/59 L 06/08/25 11:49 Pulse Ox 95 06/08/25 11:49 O2 Del Method Nasal Cannula 06/08/25 11:49 O2 Flow Rate 2 06/08/25 11:49 BMI result Body Mass Index 20.5 Const: Other: Awake alert no acute distress Resp: Other: Clear to auscultation bilaterally no rales rhonchi or wheezes Cardio: Other: No S4; positive S1-S2; no S3 murmurs rubs or gallops GI: Other: Soft nontender nondistended normoactive bowel sounds Extrem: Other: No edema bilaterally Objective Data Active Medications Acetaminophen (Acetaminophen 325 Mg Tablet) 650 mg PO Q6H PRN PRN Reason: Pain, Mild 1-3,fever,headache Apixaban (Apixaban 5 Mg Tablet) 5 mg PO BID [facility] Stop: 07/10/25 09:00 Last Admin: 06/08/25 08:45 Dose: 5 mg Documented By: OLGA Ascorbic Acid (Ascorbic Acid 500 Mg Tablet) 500 mg PO BEDTIME [facility] Last Admin: 06/07/25 20:54 Dose: 500 mg Documented By: SOFIYA Atorvastatin Calcium (Atorvastatin Calcium 80 Mg Tablet) 80 mg PO BEDTIME [facility] Last Admin: 06/07/25 20:54 Dose: 80 mg Documented By: SOFIYA Calcium Carbonate (Calcium Carbonate 750 Mg Tab.Chew) 750 mg PO Q4H PRN PRN Reason: Heartburn Diltiazem HCl (Diltiazem Hcl Cd 180 Mg Cap.Er.24h) 180 mg PO DAILY [facility]; Protocol Last Admin: 06/08/25 08:45 Dose: 180 mg Documented By: OLGA Ferrous Sulfate (Ferrous Sulfate 324 Mg Tablet.Dr) 324 mg PO DAILY [facility] Last Admin: 06/08/25 08:51 Dose: 324 mg Documented By: OLGA Furosemide (Furosemide 40 Mg Tablet) 40 mg PO BID [facility]; Protocol On Hold: 06/06/25 08:20 Last Admin: 06/06/25 08:15 Dose: 40 mg Documented By: SAURAV Ceftriaxone Sodium 1 gm/ (Sodium Chloride) 50 mls @ 100 mls/hr IV Q24H [facility] Last Infusion: 06/08/25 01:28 Dose: Infused Documented By: SOFIYA Insulin Glargine (Insulin Glargine,Hum.Rec.Anlog 100 Unit/Ml 10 Ml Vial) 10 unit SUBCUT BID [facility] Last Admin: 06/08/25 08:51 Dose: Not Given Documented By: OLGA Non-Admin Reason: Critical blood glucose 44 Insulin Human Lispro (Insulin Lispro 100 Unit/Ml 3 Ml Vial) 0 unit SUBCUT QIDACHS [facility]; Protocol Last Admin: 06/08/25 11:41 Dose: Not Given Documented By: OLGA Non-Admin Reason: No Insulin Coverage Levothyroxine Sodium (Levothyroxine Sodium 125 Mcg Tablet) 125 mcg PO DAILY@0600 [facility] Last Admin: 06/08/25 06:19 Dose: 125 mcg Documented By: SOFIYA Magnesium Hydroxide (Milk Of Magnesia 30 Ml Oral.Susp) 30 ml PO DAILY PRN PRN Reason: Constipation Melatonin (Melatonin 3 Mg Tablet) 6 mg PO BEDTIME PRN PRN Reason: Insomnia Metformin HCl (Metformin Hcl 1,000 Mg Tablet) 1,000 mg PO BID [facility] On Hold: 06/06/25 06:44 Last Admin: 06/05/25 21:40 Dose: 1,000 mg Documented By: ISA Metoprolol Succinate (Metoprolol Succinate Er 50 Mg Tab.Er.24h) 50 mg PO BEDTIME [facility]; Protocol Last Admin: 06/07/25 20:54 Dose: 50 mg Documented By: SOFIYA Sodium Chloride (0.9 % Sodium Chloride Flush 3 Ml Syringe) 3 ml IVFLUSH QSHIFT [facility] Last Admin: 06/08/25 08:46 Dose: 3 ml Documented By: OLGA Tamsulosin HCl (Tamsulosin Hcl 0.4 Mg Capsule) 0.4 mg PO BEDTIME [facility] Last Admin: 06/07/25 20:54 Dose: 0.4 mg Documented By: SOFIYA Vitamin D (Cholecalciferol (Vitamin D3) 25 Mcg Tablet) 50 mcg PO BEDTIME [facility] Last Admin: 06/07/25 20:55 Dose: 50 mcg Documented By: SOFIYA Labs 06/08/25 06:29 06/08/25 06:29 Labs: Laboratory Results - last 24 hr 06/07/25 06/07/25 06/08/25 16:32 20:47 06:29 MCV 101.0 H MCH 34.2 H MCHC 33.9 RDW 18.2 H Plt Count 148 L MPV 9.7 Immature Gran % (Auto) 0.4 Neut % (Auto) 76.3 H Lymph % (Auto) 17.0 L [place] % (Auto) 5.6 Eos % (Auto) 0.3 Baso % (Auto) 0.4 Lymph # (Auto) 1.6 [place] # (Auto) 0.5 Eos # (Auto) 0.0 Baso # (Auto) 0.0 Abs Immat Gran (auto) 0.04 H Absolute Neuts (auto) 7.3 Absolute Nucleated RBC 0.000 Nucleated RBC % (auto) 0.0 Anion Gap 12 Estim Creat Clear Calc 54.5 Estimated GFR > 60 POC Glucose 144 H 103 Fasting Glucose 44 L* Calcium 7.8 L Total Bilirubin 0.8 AST 122 H ALT 67 H Alkaline Phosphatase 167 H Total Protein 5.5 L Albumin 2.9 L 06/08/25 06/08/25 08:23 11:29 MCV MCH MCHC RDW Plt Count MPV Immature Gran % (Auto) Neut % (Auto) Lymph % (Auto) [place] % (Auto) Eos % (Auto) Baso % (Auto) Lymph # (Auto) [place] # (Auto) Eos # (Auto) Baso # (Auto) Abs Immat Gran (auto) Absolute Neuts (auto) Absolute Nucleated RBC Nucleated RBC % (auto) Anion Gap Estim Creat Clear Calc Estimated GFR POC Glucose 213 H 145 H Fasting Glucose Calcium Total Bilirubin AST ALT Alkaline Phosphatase Total Protein Albumin Microbiology Microbiology Results: Microbiology 06/05/25 Unknown Urine Culture - Final Urine clean catch - Clean Catch Midstream Enterococcus faecalis 06/06/25 01:42 Blood Culture - Preliminary Blood - Venous No growth after 48 hours. 06/06/25 01:31 Blood Culture - Preliminary Blood - Venous No growth after 48 hours. Assessment and Plan (1) Urinary tract infection: Status: Acute Plan This is an 89 year old male with history of IDDM, HFpEF, aflutter on Eliquis, TAVR, HTN, hypothyroidism who initially presented to the ED with weakness found to have probable UTI 1.UTI(Enterococcus) - D/C ceftriaxone (1); Levaquin 500 mg IV daily -switch to p.o. on DC 2.TAYLOR on CKD3 -resolved with volume -follow renals/divalents 3.Atrial flutter -acceptable control on current therapies -continue Eliquis 4.Generalized weakness likely due to dehydration/TAYLOR PT eval for safe disposition 5.IDDM -hold metformin, sitagliptin -lispro correctional scale -adjust as indicated dvt ppx - eliquis Patient will likely require 2 midnight stay in the hospital for management of UTI requiring IV antibiotics and physical therapy evaluation for safe disposition Quality Stroke Does the patient have a stroke diagnosis?: No VTE Prior VTE?: No VTE Risk Level:: Medical - moderate - high VTE Device Contraindication: Treatment Not Indicated VTE Drug Contraindication: N/A - Med Ordered
--- NOTE | 2025-06-08 15:01 | MHC.CM.PN ---
EMR REVIEWED, PT W/RAPID AFIB/UTI, PT NOT YET MEDICALLY CLEARED AND REMAINS ON IV ABX, ANTIC PT MAY BE CLEARED FOR DC TOMORROW 06/09, CM WILL CONT TO FOLLOW DC NEEDS, [facility] UPDATED.
[2025-06-08 16:09] LABS: Glucose, Whole Blood 280 mg/dL (60-115)
[2025-06-08 20:23] LABS: Glucose, Whole Blood 195 mg/dL (60-115)
[2025-06-08] MEDS: Insulin Glargine,Hum.rec.anlog 100 UNIT/ML 10 ML VIAL 10 UNIT SUBCUT (20:28)
[2025-06-08] MEDS: Metoprolol Succinate ER 50 MG TAB.ER.24H PO (20:30)
[2025-06-09] VITALS (8 sets, daily range): BP systolic 108–143; BP diastolic 56–88; PULSE 55–123; RESP 18–20; TEMP 36.2–38.3; O2SAT 93–97
--- NOTE | 2025-06-09 07:32 | HO.PM.IMPN ---
Subjective Subjective Date of Service: 06/09/25 Interval History: Switched antibiotics to p.o. Patient back to baseline O2 Patient likely to be discharged tomorrow a.m. at 11:00 as his day jeannette did not have a bed today Review of Systems Review of Systems: Yes all other systems are reviewed and are negative Physical Exam Vital Signs: Vital Signs: Last Vital Signs Temp 101 F H 06/09/25 04:00 Pulse 123 H 06/09/25 04:00 Resp 18 06/09/25 04:00 BP 140/88 H 06/09/25 04:00 Pulse Ox 94 06/09/25 04:00 O2 Del Method Oxymask 06/09/25 04:00 O2 Flow Rate 4 06/09/25 04:00 BMI result Body Mass Index 20.5 Const: Other: Awake alert no acute distress Resp: Other: Clear to auscultation bilaterally no rales rhonchi or wheezes Cardio: Other: No S4; positive S1-S2; no S3 murmurs rubs or gallops GI: Other: Soft nontender nondistended normoactive bowel sounds Extrem: Other: No edema bilaterally Objective Data Active Medications Acetaminophen (Acetaminophen 325 Mg Tablet) 650 mg PO Q6H PRN PRN Reason: Pain, Mild 1-3,fever,headache Last Admin: 06/08/25 20:29 Dose: 650 mg Documented By: SOFIYA Apixaban (Apixaban 5 Mg Tablet) 5 mg PO BID [facility] Stop: 07/10/25 09:00 Last Admin: 06/08/25 20:29 Dose: 5 mg Documented By: SOFIYA Ascorbic Acid (Ascorbic Acid 500 Mg Tablet) 500 mg PO BEDTIME [facility] Last Admin: 06/08/25 20:29 Dose: 500 mg Documented By: SOFIYA Atorvastatin Calcium (Atorvastatin Calcium 80 Mg Tablet) 80 mg PO BEDTIME [facility] Last Admin: 06/08/25 20:29 Dose: 80 mg Documented By: SOFIYA Calcium Carbonate (Calcium Carbonate 750 Mg Tab.Chew) 750 mg PO Q4H PRN PRN Reason: Heartburn Diltiazem HCl (Diltiazem Hcl Cd 180 Mg Cap.Er.24h) 180 mg PO DAILY [facility]; Protocol Last Admin: 06/08/25 08:45 Dose: 180 mg Documented By: OLGA Ferrous Sulfate (Ferrous Sulfate 324 Mg Tablet.) 324 mg PO DAILY [facility] Last Admin: 06/08/25 08:51 Dose: 324 mg Documented By: OLGA Furosemide (Furosemide 40 Mg Tablet) 40 mg PO BID [facility]; Protocol On Hold: 06/06/25 08:20 Last Admin: 06/06/25 08:15 Dose: 40 mg Documented By: SAUARV Levofloxacin (Levaquin) 500 mg in 100 mls @ 100 mls/hr IV Q24H [facility] Last Infusion: 06/08/25 18:04 Dose: Infused Documented By: KRYSTAL Insulin Glargine (Insulin Glargine,Hum.Rec.Anlog 100 Unit/Ml 10 Ml Vial) 10 unit SUBCUT BID [facility] Last Admin: 06/08/25 20:28 Dose: 10 unit Documented By: SOFIYA Insulin Human Lispro (Insulin Lispro 100 Unit/Ml 3 Ml Vial) 0 unit SUBCUT QIDACHS [facility]; Protocol Last Admin: 06/08/25 20:39 Dose: 2 unit Documented By: SOFIYA Levothyroxine Sodium (Levothyroxine Sodium 125 Mcg Tablet) 125 mcg PO DAILY@0600 [facility] Last Admin: 06/09/25 06:02 Dose: 125 mcg Documented By: SOFIYA Magnesium Hydroxide (Milk Of Magnesia 30 Ml Oral.Susp) 30 ml PO DAILY PRN PRN Reason: Constipation Melatonin (Melatonin 3 Mg Tablet) 6 mg PO BEDTIME PRN PRN Reason: Insomnia Metformin HCl (Metformin Hcl 1,000 Mg Tablet) 1,000 mg PO BID [facility] On Hold: 06/06/25 06:44 Last Admin: 06/05/25 21:40 Dose: 1,000 mg Documented By: ISA Metoprolol Succinate (Metoprolol Succinate Er 50 Mg Tab.Er.24h) 50 mg PO BEDTIME [facility]; Protocol Last Admin: 06/08/25 20:30 Dose: 50 mg Documented By: SOFIYA Sodium Chloride (0.9 % Sodium Chloride Flush 3 Ml Syringe) 3 ml IVFLUSH QSHIFT [facility] Last Admin: 06/08/25 20:28 Dose: 3 ml Documented By: SOFIYA Tamsulosin HCl (Tamsulosin Hcl 0.4 Mg Capsule) 0.4 mg PO BEDTIME [facility] Last Admin: 06/08/25 20:29 Dose: 0.4 mg Documented By: SOFIYA Vitamin D (Cholecalciferol (Vitamin D3) 25 Mcg Tablet) 50 mcg PO BEDTIME [facility] Last Admin: 06/08/25 20:29 Dose: 50 mcg Documented By: SOFIYA Labs 06/08/25 06:29 06/08/25 06:29 Labs: Laboratory Results - last 24 hr 06/08/25 06/08/25 06/08/25 06:29 08:23 11:29 Anion Gap 12 Estim Creat Clear Calc 54.5 Estimated GFR > 60 POC Glucose 213 H 145 H Fasting Glucose 44 L* Calcium 7.8 L Total Bilirubin 0.8 AST 122 H ALT 67 H Alkaline Phosphatase 167 H Total Protein 5.5 L Albumin 2.9 L 06/08/25 06/08/25 15:51 20:19 Anion Gap Estim Creat Clear Calc Estimated GFR POC Glucose 280 H 195 H Fasting Glucose Calcium Total Bilirubin AST ALT Alkaline Phosphatase Total Protein Albumin Microbiology Microbiology Results: Microbiology 06/05/25 Unknown Urine Culture - Final Urine clean catch - Clean Catch Midstream Enterococcus faecalis 06/06/25 01:42 Blood Culture - Preliminary Blood - Venous No growth after 48 hours. 06/06/25 01:31 Blood Culture - Preliminary Blood - Venous No growth after 48 hours. Assessment and Plan (1) Urinary tract infection: Status: Acute Plan This is an 89 year old male with history of IDDM, HFpEF, aflutter on Eliquis, TAVR, HTN, hypothyroidism who initially presented to the ED with weakness found to have probable UTI, was to be discharged today, however his facility could not take him back today we will be discharged tomorrow at 11:00 1.UTI(Enterococcus) -switched to p.o. Levaquin on DC 2.TAYLOR on CKD3 -resolved with volume -follow renals/divalents 3.Atrial flutter -acceptable control on current therapies -continue Eliquis 4.Generalized weakness likely due to dehydration/TAYLOR PT eval for safe disposition 5.IDDM -hold metformin, sitagliptin -lispro correctional scale -adjust as indicated dvt ppx - eliquis Patient was deemed medically appropriate for discharge today, his facility-day but could not take him today hence he will be discharged tomorrow at 11:00. Quality Stroke Does the patient have a stroke diagnosis?: No VTE Prior VTE?: No VTE Risk Level:: Medical - moderate - high VTE Device Contraindication: Treatment Not Indicated VTE Drug Contraindication: N/A - Med Ordered
[2025-06-09 08:42] LABS: Glucose, Whole Blood 98 mg/dL (60-115)
[2025-06-09] MEDS: Insulin Glargine,Hum.rec.anlog 100 UNIT/ML 10 ML VIAL 10 UNIT SUBCUT ×2 (08:42→21:05)
[2025-06-09] MEDS: dilTIAZem HCL CD 180 MG CAP.ER.24H PO (08:43)
[2025-06-09] MEDS: 0.9 % Sodium Chloride Flush 3 ML SYRINGE IVFLUSH ×2 (08:43→17:15)
[2025-06-09] MEDS: Ferrous Sulfate 324 MG TABLET.DR PO (08:43)
--- NOTE | 2025-06-09 15:43 | MHC.CM.PN ---
Patient will dc [facility] tomorrow at 11:00 AM, via [facility] (MD & RN are aware). CM addressed IMM with Patient and he asked to inform his himself, of the dc plan.
[2025-06-09 16:34] LABS: Glucose, Whole Blood 236 mg/dL (60-115)
[2025-06-09] MEDS: Metoprolol Succinate ER 50 MG TAB.ER.24H PO (20:46)
[2025-06-09 20:53] LABS: Glucose, Whole Blood 203 mg/dL (60-115)
[2025-06-09] MEDS: Albuterol/Iprat 2.5/0.5MG 3 ML AMPUL.NEB INHALE (23:39)
--- NOTE | 2025-06-10 | ECG_ITS ---
Test Reason : afib with RVR Blood Pressure : */* mmHG Vent. Rate : 93 BPM Atrial Rate : 265 BPM P-R Int : * ms QRS Dur : 116 ms QT Int : 370 ms P-R-T Axes : 91 -49 45 degrees QTcB Int : 460 ms Atrial flutter with variable A-V block Left anterior fascicular block Minimal voltage criteria for LVH, may be normal variant ( Erick product ) Abnormal ECG When compared with ECG of 06-Jun-2025 01:06, No significant changes seen Referred By: Sheldon Robles Electronically Signed By: BENJY JOHNS
[2025-06-10 00:08] VITALS: BP 126/65; PULSE 130; RESP 20; O2SAT 98
--- NOTE | 2025-06-10 00:22 | PM.EVENT ---
Event Note Date of Service: 06/10/25 Event Note: RN notified for patient with wheezing and atrial fibrillation with RVR. On exam, patient has wheezing and trace bilateral lower-extremity edema. High-sensitivity troponin I elevated at 28.6; proBNP 4,888. Administered Lasix 20 mg IV x1; oral Lasix held. Will reassess volume status. Duoneb given. Lopressor 5 mg IV x1 administered. ABG, CBC, and BMP ordered. Chest X-ray ordered. Time Spent With Patient Time: Total time managing care of this patient today ____ minutes.
[2025-06-10 00:33] VITALS: PULSE 89
[2025-06-10 00:37] LABS: ABG HCO3 20 mmol/L (22-26); ABG O2 % Saturation 97.0 %
[2025-06-10 00:39] VITALS: O2SAT 97
[2025-06-10 01:13] LABS: MANUAL DIFF FLAG NO
[2025-06-10 01:14] LABS: Hematocrit 27.6 % (42.0-52.0); Hemoglobin 9.4 g/dl (14.0-18.0); Imm Gran Abs Auto 0.05 X10*3/uL (0.00-0.03); Imm Gran Pct Auto 0.6 % (0.0-0.4); Lymphocytes Absolute Auto 1.2 X10*3/uL (1.2-4.9); Mean Corpuscular HGB Conc 34.1 g/dl (31.0-36.0); Mean Corpuscular Hemoglobin 34.3 pg (27.0-33.0); Mean Corpuscular Volume 100.7 fL (80.0-98.0); NRBC Abs Auto 0.000 X10*3/uL (0.0-0.012); NRBC Pct Auto 0.0 /100WBC (0.0-0.2); Platelet Count 132 X10*3/uL (160-400); Red Blood Count 2.74 X10*6/uL (4.60-5.80); White Blood Count 8.1 X10*3/uL (4.8-10.8)
[2025-06-10 02:21] LABS: Anion Gap 12 (12-20); Blood Urea Nitrogen 33 mg/dL (9-16); Calcium 7.9 mg/dL (8.4-10.2); Carbon Dioxide 22 mmol/L (22-29); Chloride 105 mmol/L (96-108); Creatinine Clr Calc Pharmacy 42.8; Estimated Glomerular Filt Rate > 60; Magnesium 1.5 mg/dL (1.6-2.6); Potassium 3.7 mmol/L (3.3-5.1); Sodium 135 mmol/L (135-145)
[2025-06-10 02:27] LABS: Troponin-I High Sensitivity 28.6 ng/L (<3.5-35.0)
[2025-06-10 03:01] VITALS: BP 100/57; PULSE 65; RESP 20; TEMP 36.8; O2SAT 98
--- NOTE | 2025-06-10 03:14 | PC.NURSE ---
Assumed care of patient at 19:00. Alert and oriented x4, denies any pain. Patient noted to have expiratory wheeze. MD notified, duoneb treatment ordered and administered. Approximately at 23:50 patients HR increased to 140s and sustained. Patient reports feeling asymptomatic and denies any pain. MD notified and came to bedside. Metoprolol 5mg IVpush ordered and administered. HR lowered and sustaining in 80s. Vitals taken, see charting. Labs, ABG and chest x-ray ordered and obtained. MD notified. Patient now resting in bed, denies any pain and high fall risk measures in place.
[2025-06-10] MEDS: Furosemide 20 MG/2 ML VIAL IVPUSH (03:29)
[2025-06-10] MEDS: Magnesium Sulfate/H2O 2 GM/50 ML PIGGYBACK IV (03:30)
[2025-06-10 07:02] LABS: MANUAL DIFF FLAG NO
[2025-06-10 07:04] LABS: Glucose, Whole Blood 159 mg/dL (60-115)
[2025-06-10 07:06] LABS: Hematocrit 28.6 % (42.0-52.0); Hemoglobin 9.5 g/dl (14.0-18.0); Imm Gran Abs Auto 0.08 X10*3/uL (0.00-0.03); Imm Gran Pct Auto 1.2 % (0.0-0.4); Lymphocytes Absolute Auto 1.0 X10*3/uL (1.2-4.9); Mean Corpuscular HGB Conc 33.2 g/dl (31.0-36.0); Mean Corpuscular Hemoglobin 33.5 pg (27.0-33.0); Mean Corpuscular Volume 100.7 fL (80.0-98.0); NRBC Abs Auto 0.000 X10*3/uL (0.0-0.012); NRBC Pct Auto 0.0 /100WBC (0.0-0.2); Platelet Count 141 X10*3/uL (160-400); Red Blood Count 2.84 X10*6/uL (4.60-5.80); White Blood Count 6.9 X10*3/uL (4.8-10.8)
--- NOTE | 2025-06-10 07:32 | P.PNIM_ITS ---
Subjective Subjective Date of Service: 06/10/25 Physical Exam 2 Vital Signs: Vital Signs: Last Vital Signs Temp 98.3 F 06/10/25 03:01 Pulse 65 06/10/25 03:01 Resp 20 06/10/25 03:01 BP 100/57 L 06/10/25 03:01 Pulse Ox 98 06/10/25 03:01 O2 Del Method Nasal Cannula 06/10/25 03:01 O2 Flow Rate 4 06/10/25 03:01 BMI result Body Mass Index 20.5 Objective Data Active Medications Acetaminophen (Acetaminophen 325 Mg Tablet) 650 mg PO Q6H PRN PRN Reason: Pain, Mild 1-3,fever,headache Last Admin: 06/08/25 20:29 Dose: 650 mg Documented By: SOFIYA Apixaban (Apixaban 5 Mg Tablet) 5 mg PO BID [facility] Stop: 07/10/25 09:00 Last Admin: 06/09/25 20:46 Dose: 5 mg Documented By: KIM Ascorbic Acid (Ascorbic Acid 500 Mg Tablet) 500 mg PO BEDTIME [facility] Last Admin: 06/09/25 20:46 Dose: 500 mg Documented By: KIM Atorvastatin Calcium (Atorvastatin Calcium 80 Mg Tablet) 80 mg PO BEDTIME [facility] Last Admin: 06/09/25 20:46 Dose: 80 mg Documented By: KIM Calcium Carbonate (Calcium Carbonate 750 Mg Tab.Chew) 750 mg PO Q4H PRN PRN Reason: Heartburn Diltiazem HCl (Diltiazem Hcl Cd 180 Mg Cap.Er.24h) 180 mg PO DAILY [facility]; Protocol Last Admin: 06/09/25 08:43 Dose: 180 mg Documented By: MICHELLE Ferrous Sulfate (Ferrous Sulfate 324 Mg Tablet.Dr) 324 mg PO DAILY [facility] Last Admin: 06/09/25 08:43 Dose: 324 mg Documented By: MICHELLE Furosemide (Furosemide 40 Mg Tablet) 40 mg PO BID [facility]; Protocol On Hold: 06/10/25 03:19 Last Admin: 06/09/25 20:47 Dose: 40 mg Documented By: KIM Insulin Glargine (Insulin Glargine,Hum.Rec.Anlog 100 Unit/Ml 10 Ml Vial) 10 unit SUBCUT BID [facility] Last Admin: 06/09/25 21:05 Dose: 10 unit Documented By: KIM Insulin Human Lispro (Insulin Lispro 100 Unit/Ml 3 Ml Vial) 0 unit SUBCUT QIDACHS [facility]; Protocol Last Admin: 06/09/25 21:05 Dose: 4 unit Documented By: KIM Levofloxacin (Levofloxacin 750 Mg Tablet) 750 mg PO Q24H [facility] Stop: 06/12/25 14:59 Last Admin: 06/09/25 16:09 Dose: 750 mg Documented By: MICHELLE Levothyroxine Sodium (Levothyroxine Sodium 125 Mcg Tablet) 125 mcg PO DAILY@0600 [facility] Last Admin: 06/10/25 05:13 Dose: 125 mcg Documented By: KIM Magnesium Hydroxide (Milk Of Magnesia 30 Ml Oral.Susp) 30 ml PO DAILY PRN PRN Reason: Constipation Melatonin (Melatonin 3 Mg Tablet) 6 mg PO BEDTIME PRN PRN Reason: Insomnia Metformin HCl (Metformin Hcl 1,000 Mg Tablet) 1,000 mg PO BID [facility] On Hold: 06/06/25 06:44 Last Admin: 06/05/25 21:40 Dose: 1,000 mg Documented By: ISA Metoprolol Succinate (Metoprolol Succinate Er 50 Mg Tab.Er.24h) 50 mg PO BEDTIME [facility]; Protocol Last Admin: 06/09/25 20:46 Dose: 50 mg Documented By: KIM Sodium Chloride (0.9 % Sodium Chloride Flush 3 Ml Syringe) [facility] Last Admin: 06/10/25 02:21 Dose: Not Given Documented By: KIM Non-Admin Reason: IV Running Tamsulosin HCl (Tamsulosin Hcl 0.4 Mg Capsule) 0.4 mg PO BEDTIME [facility] Last Admin: 06/09/25 20:46 Dose: 0.4 mg Documented By: KIM Vitamin D (Cholecalciferol (Vitamin D3) 25 Mcg Tablet) 50 mcg PO BEDTIME [facility] Last Admin: 06/09/25 20:47 Dose: 50 mcg Documented By: KIM Labs 06/10/25 06:36 06/10/25 01:53 Labs: Laboratory Results - last 24 hr 06/09/25 06/09/25 06/09/25 07:22 16:28 20:48 MCV MCH MCHC RDW Plt Count MPV Immature Gran % (Auto) Neut % (Auto) Lymph % (Auto) [place] % (Auto) Eos % (Auto) Baso % (Auto) Lymph # (Auto) [place] # (Auto) Eos # (Auto) Baso # (Auto) Abs Immat Gran (auto) Absolute Neuts (auto) Absolute Nucleated RBC Nucleated RBC % (auto) O2 Saturation ABG pH at Pt Temp ABG pCO2 at Pt Temp ABG pO2 at Pt Temp ABG HCO3 ABG Base Excess (Actual) Anion Gap Estim Creat Clear Calc Estimated GFR POC Glucose 98 236 H 203 H Random Glucose Calcium Magnesium Troponin I High Sens NT-Pro-B Natriuret Pep 06/10/25 06/10/25 06/10/25 00:33 01:08 01:53 MCV 100.7 H MCH 34.3 H MCHC 34.1 RDW 17.7 H Plt Count 132 L MPV 9.7 Immature Gran % (Auto) 0.6 H Neut % (Auto) 75.4 H Lymph % (Auto) 14.6 L [place] % (Auto) 8.1 Eos % (Auto) 1.1 Baso % (Auto) 0.2 Lymph # (Auto) 1.2 [place] # (Auto) 0.7 Eos # (Auto) 0.1 Baso # (Auto) 0.0 Abs Immat Gran (auto) 0.05 H Absolute Neuts (auto) 6.1 Absolute Nucleated RBC 0.000 Nucleated RBC % (auto) 0.0 O2 Saturation 97.0 ABG pH at Pt Temp 7.46 H ABG pCO2 at Pt Temp 28 L ABG pO2 at Pt Temp 84 ABG HCO3 20 L ABG Base Excess (Actual) -2.1 Anion Gap 12 Estim Creat Clear Calc 42.8 Estimated GFR > 60 POC Glucose Random Glucose 161 H Calcium 7.9 L Magnesium 1.5 L Troponin I High Sens 28.6 D NT-Pro-B Natriuret Pep 4888.6 H 06/10/25 06/10/25 06:36 06:58 MCV 100.7 H MCH 33.5 H MCHC 33.2 RDW 17.5 H Plt Count 141 L MPV 9.9 Immature Gran % (Auto) 1.2 H Neut % (Auto) 73.7 H Lymph % (Auto) 15.0 L [place] % (Auto) 7.9 Eos % (Auto) 1.9 Baso % (Auto) 0.3 Lymph # (Auto) 1.0 L [place] # (Auto) 0.6 Eos # (Auto) 0.1 Baso # (Auto) 0.0 Abs Immat Gran (auto) 0.08 H Absolute Neuts (auto) 5.1 Absolute Nucleated RBC 0.000 Nucleated RBC % (auto) 0.0 O2 Saturation ABG pH at Pt Temp ABG pCO2 at Pt Temp ABG pO2 at Pt Temp ABG HCO3 ABG Base Excess (Actual) Anion Gap Estim Creat Clear Calc Estimated GFR POC Glucose 159 H Random Glucose Calcium Magnesium Troponin I High Sens NT-Pro-B Natriuret Pep Quality Stroke Does the patient have a stroke diagnosis?: No VTE Prior VTE?: No VTE Risk Level:: Medical - moderate - high VTE Device Contraindication: Treatment Not Indicated VTE Drug Contraindication: N/A - Med Ordered
[2025-06-10 07:34] LABS: Alanine Aminotransferase 83 U/L (0-40); Albumin Level 2.7 g/dL (3.5-5.0); Alkaline Phosphatase 243 U/L (39-117); Anion Gap 12 (12-20); Aspartate Amino Transferase 115 U/L (5-37); Blood Urea Nitrogen 32 mg/dL (9-16); Calcium 8.0 mg/dL (8.4-10.2); Carbon Dioxide 23 mmol/L (22-29); Chloride 104 mmol/L (96-108); Creatinine Clr Calc Pharmacy 44.4; Estimated Glomerular Filt Rate > 60; Magnesium 1.8 mg/dL (1.6-2.6); Potassium 3.5 mmol/L (3.3-5.1); Sodium 135 mmol/L (135-145); Total Protein 5.4 g/dL (6.5-8.0)
[2025-06-10 07:37] VITALS: BP 112/57; PULSE 67; RESP 16; TEMP 36.3; O2SAT 95
[2025-06-10] MEDS: Insulin Glargine,Hum.rec.anlog 100 UNIT/ML 10 ML VIAL 10 UNIT SUBCUT (07:59)
[2025-06-10] MEDS: dilTIAZem HCL CD 180 MG CAP.ER.24H PO (08:00)
[2025-06-10] MEDS: Ferrous Sulfate 324 MG TABLET.DR PO (08:00)
[2025-06-10] MEDS: 0.9 % Sodium Chloride Flush 3 ML SYRINGE IVFLUSH (08:04)
--- NOTE | 2025-06-10 09:15 | PM.DS ---
DS: Providers Provider Date of admission: 06/06/25 06:14 Date of discharge: 06/10/25 Primary care physician: Orestes Alex MD Consults: 06/05/25 11:52 Consult to Case Management Stat Comment: 06/07/25 11:19 Consult to Wound Care Routine Consulting Provider: [facility] Reason for consultation: open areas to bilat buttocks with reddness. ruth/ anal redness DS: Diagnosis Discharge Diagnosis (1) Urinary tract infection: Status: Acute DS: Summary Hospital Course Hospital Course: Per H&P: Chief Complaint: weakness This is an 89 year old male who presented to the ED on 06/05 due to weakness. He reportedly collapsed to the floor and was unable to get up. His son helped him to the floor and he didn't hit his head or lose consciousness. He had no other specific complaints. He was placed on physician observation with a plan for PT evaluation and possible placement. Overnight he became tachycardic and although he has a history of atrial flutter it appeared more to be sinus tachycardia. A urinalysis was obtained which was concerning for possible UTI, he received a dose of IV ceftriaxone. Lactic acid was checked and was elevated at 3.7. He was treated with 30 cc/kg bolus of IV fluid and lactic acid began trending down. He will be admitted for further mangement of UTI. He denies urinary symptoms, fevers or chills. He reports normal appetitie, but did report a day of diarrhea without abdominal pain. Hospital course: The patient presented with generalized weakness and was found to have a probable urinary tract infection. He was started on IV ceftriaxone with clinical improvement. Urine cultures revealed E faecalis UTI. For which he was treated with IV antibiotics which were later transitioned to p.o. at the time of discharge. Patient also had TAYLOR on CKD prior due to prerenal and renal, resolved with IV fluids and antibiotics. He was noted to have an elevated lactate, felt to be type 2 lactic acidosis related to dehydration and metformin use. Metformin was held, and the patient received IV fluids with subsequent improvement in lactate levels. Mild transaminitis was noted without associated abdominal pain or symptoms. Liver function tests were monitored and remained stable/improved during the admission. He had an episode of diarrhea which resolved without recurrence; stool studies were not required. His atrial flutter remained rate controlled throughout hospitalization. Home metoprolol, diltiazem, and apixaban were continued without complication. Given his history of HFpEF, diuretics were initially held due to volume depletion and TAYLOR. He remained clinically euvolemic, and diuretics were resumed as appropriate prior to discharge. For diabetes management, metformin and sitagliptin were held during hospitalization. He was managed with basal insulin, sliding-scale insulin, and an ADA diet with acceptable glucose control. Generalized weakness improved with correction of dehydration and renal function. Physical therapy evaluated the patient and made recommendations for safe discharge disposition. Hypothyroidism was managed with continuation of home levothyroxine. The patient remained hemodynamically stable and clinically improved and was deemed safe for discharge. Patient is back to his baseline of 3 L O2, and deemed medically appropriate for transfer back to his long-term care facility. Time spent discussing smoking cessation with patient: more than 10 minutes Status at Discharge Functional status at discharge: bed bound Overall status at discharge: patient is progressing back to baseline Time Attestation Discharge Coordination Time (in mins): 65 Quality: Safe Use of Opioids Does Pt have an Active Cancer Diagnosis on the Problem List?: No Quality: Stroke Does the patient have a stroke diagnosis?: No Physical Exam Vital Signs: Vital Signs: Last Vital Signs Temp 97.4 F 06/10/25 07:37 Pulse 67 06/10/25 07:37 Resp 16 06/10/25 07:37 BP 112/57 L 06/10/25 07:37 Pulse Ox 95 06/10/25 07:37 O2 Del Method Nasal Cannula 06/10/25 07:37 O2 Flow Rate 3 06/10/25 07:37 BMI result Body Mass Index 20.5 Const: Other: Awake alert no acute distress Resp: Other: dec bilaterally wheezes Cardio: Other: No S4; positive S1-S2; no S3 murmurs rubs or gallops GI: Other: Soft nontender nondistended normoactive bowel sounds Extrem: Other: No edema bilaterally DS: Data Data Completed and Pending Labs on day of discharge: Laboratory Results - last 24 hr 06/09/25 06/09/25 06/10/25 16:28 20:48 00:33 WBC RBC Hgb Hct MCV MCH MCHC RDW Plt Count MPV Immature Gran % (Auto) Neut % (Auto) Lymph % (Auto) [place] % (Auto) Eos % (Auto) Baso % (Auto) Lymph # (Auto) [place] # (Auto) Eos # (Auto) Baso # (Auto) Abs Immat Gran (auto) Absolute Neuts (auto) Absolute Nucleated RBC Nucleated RBC % (auto) O2 Saturation 97.0 ABG pH at Pt Temp 7.46 H ABG pCO2 at Pt Temp 28 L ABG pO2 at Pt Temp 84 ABG HCO3 20 L ABG Base Excess (Actual) -2.1 Sodium Potassium Chloride Carbon Dioxide Anion Gap BUN Creatinine Estim Creat Clear Calc Estimated GFR POC Glucose 236 H 203 H Random Glucose Calcium Magnesium Total Bilirubin AST ALT Alkaline Phosphatase Troponin I High Sens NT-Pro-B Natriuret Pep Total Protein Albumin 06/10/25 06/10/25 06/10/25 01:08 01:53 06:36 WBC 8.1 6.9 RBC 2.74 L 2.84 L Hgb 9.4 L 9.5 L Hct 27.6 L 28.6 L MCV 100.7 H 100.7 H MCH 34.3 H 33.5 H MCHC 34.1 33.2 RDW 17.7 H 17.5 H Plt Count 132 L 141 L MPV 9.7 9.9 Immature Gran % (Auto) 0.6 H 1.2 H Neut % (Auto) 75.4 H 73.7 H Lymph % (Auto) 14.6 L 15.0 L [place] % (Auto) 8.1 7.9 Eos % (Auto) 1.1 1.9 Baso % (Auto) 0.2 0.3 Lymph # (Auto) 1.2 1.0 L [place] # (Auto) 0.7 0.6 Eos # (Auto) 0.1 0.1 Baso # (Auto) 0.0 0.0 Abs Immat Gran (auto) 0.05 H 0.08 H Absolute Neuts (auto) 6.1 5.1 Absolute Nucleated RBC 0.000 0.000 Nucleated RBC % (auto) 0.0 0.0 O2 Saturation ABG pH at Pt Temp ABG pCO2 at Pt Temp ABG pO2 at Pt Temp ABG HCO3 ABG Base Excess (Actual) Sodium 135 135 Potassium 3.7 3.5 Chloride 105 104 Carbon Dioxide 22 23 Anion Gap 12 12 BUN 33 H 32 H Creatinine 1.07 1.03 Estim Creat Clear Calc 42.8 44.4 Estimated GFR > 60 > 60 POC Glucose Random Glucose 161 H 161 H Calcium 7.9 L 8.0 L Magnesium 1.5 L 1.8 Total Bilirubin 0.7 AST 115 H ALT 83 H Alkaline Phosphatase 243 H Troponin I High Sens 28.6 D NT-Pro-B Natriuret Pep 4888.6 H Total Protein 5.4 L Albumin 2.7 L 06/10/25 06:58 WBC RBC Hgb Hct MCV MCH MCHC RDW Plt Count MPV Immature Gran % (Auto) Neut % (Auto) Lymph % (Auto) [place] % (Auto) Eos % (Auto) Baso % (Auto) Lymph # (Auto) [place] # (Auto) Eos # (Auto) Baso # (Auto) Abs Immat Gran (auto) Absolute Neuts (auto) Absolute Nucleated RBC Nucleated RBC % (auto) O2 Saturation ABG pH at Pt Temp ABG pCO2 at Pt Temp ABG pO2 at Pt Temp ABG HCO3 ABG Base Excess (Actual) Sodium Potassium Chloride Carbon Dioxide Anion Gap BUN Creatinine Estim Creat Clear Calc Estimated GFR POC Glucose 159 H Random Glucose Calcium Magnesium Total Bilirubin AST ALT Alkaline Phosphatase Troponin I High Sens NT-Pro-B Natriuret Pep Total Protein Albumin Preliminary micro results at discharge 06/06/25 01:42 Blood Culture - Preliminary Blood - Venous No growth after 48 hours. 06/06/25 01:31 Blood Culture - Preliminary Blood - Venous No growth after 48 hours. Discharge Plan Discharge Anticipated Discharge Date/Time: 06/10/25 09:06 Patient Disposition: Xfer SNF Discharge Diagnosis: Sepsis secondary to E faecalis UTI causing AE HFpEF, AE COPD Referrals: [facility] [Outside] - 1 Week [facility] [Outside] Orestes Alex MD [Primary Care Provider, Medical] Discharge Medications: New levofloxacin 750 mg Tablet 750 mg PO Q24H 2 Days Qty: 2 0RF Continued ferrous sulfate [FeroSul] 325 mg (65 mg iron) tablet 325 mg PO DAILY coenzyme Q10 [CoQ-10] 100 mg Capsule 200 mg PO BEDTIME cholecalciferol (vitamin D3) [Vitamin D3] 50 mcg (2,000 unit) Tablet 50 mcg PO BEDTIME omega [id number]-[id number]-fish oil [Fish Oil] 1,000 mg (120 mg-180 mg) Capsule 1 cap PO DAILY diltiazem HCl [DILT-XR] 180 mg capsule,ext.rel 24h degradable 180 mg PO DAILY ascorbic acid (vitamin C) [Vitamin C] 500 mg Tablet 500 mg PO BEDTIME sitagliptin 50 mg Tablet 50 mg PO DAILY insulin glargine [Lantus U-100 Insulin] 100 unit/mL Solution 10 unit subcut BID Qty: 0 0RF insulin lispro [Admelog U-100 Insulin lispro] 100 unit/mL Solution See Protocol subcut QIDACHS Qty: 0 0RF Protocol: Insulin Correction Scale Less than or equal to 110 ---- Give (units): 0 111 to 150 Give (units): 0 151 to 200 Give (units): 2 201 to 250 Give (units): 4 251 to 300 Give (units): 6 301 to 350 Give (units): 8 Greater than 350 Give (units): 10 Call MD if Blood Glucose > : 350 atorvastatin 80 mg tablet 80 mg PO BEDTIME tamsulosin 0.4 mg capsule 0.4 mg PO BEDTIME metformin 500 mg tablet 1,000 mg PO BID levothyroxine 125 mcg tablet 125 mcg PO DAILY@0600 (DME) FreeStyle Lite Strips Strip See Rx Instructions .ROUTE DAILY Qty: 10 Rx Instructions: As directed furosemide 40 mg tablet 40 mg PO BID Qty: 180 2RF metoprolol succinate [Toprol XL] 50 mg tablet extended release 24 hr 50 mg PO BEDTIME Qty: 90 2RF Eliquis 5 mg tablet 5 mg PO BID Qty: 180 2RF Discharge Orders: Discharge Order (Routine); Ordered 06/10/25 Ordered By: Cherelle Clark Diet: Low salt diet Activity on Discharge: Walk with crutches Stand Alone Forms: Patient Portal Discharge page Print Language: German Care Plan Goals: Discharge Instructions Primary Diagnoses - Enterococcus faecalis urinary tract infection - COPD - Heart failure with preserved ejection fraction (HFpEF) Hospital Course - Treated for UTI with antibiotics, respiratory status optimized, and volume status managed. Clinically stable for discharge. Medications - Antibiotic: Take exactly as prescribed and complete the full course, even if symptoms improve. - COPD meds: Continue inhalers/nebulizers as directed. Use rescue inhaler only as needed. - HFpEF meds: Continue home cardiac medications (diuretics, BP meds) as prescribed. - Avoid NSAIDs unless specifically instructed. Activity - Resume activity as tolerated. - Pace activities; take rest breaks to avoid dyspnea or fatigue. Diet - Heart-healthy, low-sodium diet. - Maintain adequate hydration unless on fluid restriction. Monitoring at Home - Check daily weight; call if weight increases >2 lb in 1 day or >5 lb in a week. - Monitor for urinary symptoms, shortness of breath, wheezing, edema, or fever. When to Seek Care Urgently - Fever, chills, worsening urinary pain or blood in urine - Increasing shortness of breath, chest pain, new/worsening wheeze - Rapid weight gain, leg swelling, or reduced urine output - Dizziness, confusion, or inability to take medications Follow-Up - Primary care within 1 week. - Pulmonology and cardiology as scheduled. - Repeat labs or urine studies if instructed. Additional Instructions - Smoking cessation strongly encouraged. - Use incentive spirometer if provided. - Bring this medication list to all follow-up visits. Health Concerns: See above Plan of Treatment: See above Assessment: See above Patient Instructions: Urinary Tract Infection in Men (DC)
[2025-06-10 09:19] LABS: ABG Refer to POC result
[2025-06-10 11:07] LABS: Glucose, Whole Blood 270 mg/dL (60-115)
--- OUTSIDE RECORDS SUMMARY | 2025-07-12 19:00 | XMS_ITS | Clinical Summary ---
Author Organization Unknown Care Team Providers Care Carbon Accountant Name Role Phone SHERRELL DAVILA, YELENA Unavailable Unavailable KESHIA RN, GARCÍA Unavailable Unavailable EVANGELINA SONG, SUPA Unavailable Unavailable Payers Payer Name Policy Type Policy Number Effective Date Expira tion Date MEDICARE - [facility]/[place] - [facility] [id number] Problems Condition Name Condition Details Condition Category Status Onset Date Resolution Date Last Treatment Date Treating Clinician Comments TYPE 2 DIABETES MELLITUS WITHOUT COMPLICATION S Active 06-11 00:00: 00 HYPERTENSIVE HEART DISEASE WITH HEART FAILURE Active 06-11 00:00: 00 CHRONIC DIASTOLIC (CONGESTIVE) HEART FAILURE Active 06-11 00:00: 00 UNSPECIFIED ATRIAL FIBRILLATION Active 06-11 00:00: 00 UNSPECIFIED ATRIAL FLUTTER Active 06-11 00:00: 00 OTHER RETENTION OF URINE Active 06-11 00:00: 00 HYPOTHYROIDI SM, UNSPECIFIED Active 06-11 00:00: 00 UNILATERAL PRIMARY OSTEOARTHRIT IS, RIGHT KNEE Active 06-11 00:00: 00 HYPERLIPIDEM IA, UNSPECIFIED Active 06-11 00:00: 00 METABOLIC ENCEPHALOPAT HY Active 06-11 00:00: 00 ACUTE KIDNEY FAILURE, UNSPECIFIED Active 06-11 00:00: 00 ANEMIA, UNSPECIFIED Active 06-11 00:00: 00 CARE HOME (CURRENT) USE OF ANTICOAGULAN TS Active 06-11 00:00: 00 CARE HOME (CURRENT) USE OF INSULIN Active 06-11 00:00: 00 SCRIPT READER (CURRENT) USE OF ORAL HYPOGLYCEMIC DRUGS Active 06-11 00:00: 00 PERSONAL HISTORY OF PNEUMONIA (RECURRENT) Active 06-11 00:00: 00 PRESENCE OF PROSTHETIC HEART VALVE Active 06-11 00:00: 00 PERSONAL HISTORY OF NICOTINE DEPENDENCE Active 06-11 00:00: 00 HISTORY OF FALLING Active 06-11 00:00: 00 Allergies, Adverse Reactions, Alerts Allergy Name Allergy Type Status Severity Reaction(s) Onset Date Inactive Date Treating Clinician Comments NKA Propensity to adverse reactions Active 2025-05 13:42:4 8 Medications Ordered Medication Name Filled Medication Name Start Date Stop Date Current Medication? Ordering Clinician Indication Dosage Frequency Signature (SIG) Comments Components cefuroxime axetil 500 mg tablet 12-27 00:00: 00 12-31 00:00 :00 No [id number] Per instruc tions Per instructio ns (route: oral) Med Classific ation: Anti-Infe ctive Agents doxycycline hyclate 100 mg tablet 12-27 00:00: 00 12-31 00:00 :00 No [id number] Per instruc tions Per instructio ns (route: oral) Med Classific ation: Anti-Infe ctive Agents Breo Ellipta 100 mcg-25 mcg/dose powder for inhalation 12-26 00:00: 00 12-31 00:00 :00 No [id number] Per instruc tions Per instructio ns (route: inhalation ) Med Classific ation: Respirato ry Therapy Agents atorvastati n 80 mg tablet 12-22 00:00: 00 12-31 00:00 :00 No [id number] Per instruc tions ONCE DAILY Per instructio ns ONCE DAILY (route: oral) Med Classific ation: Cardiovas cular Therapy Agents DILT-XR 180 mg capsule, extended release 12-14 00:00: 00 12-31 00:00 :00 No [id number] Per instruc tions EVERY DAY Per instructio ns EVERY DAY (route: oral) Med Classific ation: Cardiovas cular Therapy Agents ascorbic acid (vitamin C) 1,000 mg capsule 12-28 00:00: 00 04-29 23:59 :00 No [id number] 1 capsule DAILY 1 capsule DAILY (route: oral) Med Classific ation: Electroly te Balance-N utritiona l Products atorvastati n 80 mg tablet 12-28 00:00: 00 04-29 23:59 :00 No [id number] 1 tablet BEDTIME 1 tablet BEDTIME (route: oral) Med Classific ation: Cardiovas cular Therapy Agents cefuroxime axetil 500 mg tablet 12-28 00:00: 00 01-07 23:59 :00 No [id number] 1 tablet 2 TIMES DAILY 1 tablet 2 TIMES DAILY (route: oral) Med Classific ation: Anti-Infe ctive Agents cholecalcif keegan (vitamin D3) 50 mcg (2,000 unit) capsule 12-28 00:00: 00 04-29 23:59 :00 No [id number] 1 capsule BEDTIME 1 capsule BEDTIME (route: oral) Med Classific ation: Electroly te Balance-N utritiona l Products coenzyme Q10 100 mg capsule 12-28 00:00: 00 04-29 23:59 :00 No [id number] 1 capsule DAILY 1 capsule DAILY (route: oral) Med Classific ation: Alternati ve Therapy diltiazem ER 180 mg capsule,24 hr,extended release 12-28 00:00: 00 04-29 23:59 :00 No [id number] 1 capsule DAILY 1 capsule DAILY (route: oral) Med Classific ation: Cardiovas cular Therapy Agents doxycycline hyclate 100 mg tablet 12-28 00:00: 00 01-07 23:59 :00 No [id number] 1 tablet 2 TIMES DAILY 1 tablet 2 TIMES DAILY (route: oral) Med Classific ation: Anti-Infe ctive Agents Dry Eye Relief (PEG 400) 1 % drops 12-28 00:00: 00 04-29 23:59 :00 No [id number] 1 drops 3 TIMES DAILY 1 drops 3 TIMES DAILY (route: ophthalmic (eye)) Med Classific ation: Ophthalmi c Agents Eliquis 2.5 mg tablet 12-28 00:00: 04-29 23:59 :00 No [id number] 1 tablet 2 TIMES DAILY 1 tablet 2 TIMES DAILY (route: oral) Med Classific ation: Hematolog ical Agents ferrous sulfate 325 mg (65 mg iron) tablet 12-28 00:00: 00 04-29 23:59 :00 No [id number] 1 tablet DAILY 1 tablet DAILY (route: oral) Med Classific ation: Electroly te Balance-N utritiona l Products furosemide 40 mg tablet 12-28 00:00: 00 04-29 23:59 :00 No [id number] 1 tablet DAILY 1 tablet DAILY (route: oral) Med Classific ation: Cardiovas cular Therapy Agents glipizide 5 mg tablet 12-28 00:00: 00 04-29 23:59 :00 No [id number] 1 tablet DAILY 1 tablet DAILY (route: oral) Med Classific ation: Endocrine levothyroxi ne 125 mcg tablet 12-28 00:00: 00 04-29 23:59 :00 No [id number] 1 tablet DAILY 1 tablet DAILY (route: oral) Med Classific ation: Endocrine metformin 500 mg tablet 12-28 00:00: 00 04-29 23:59 :00 No [id number] 2 tablet 2 TIMES DAILY 2 tablet 2 TIMES DAILY (route: oral) Med Classific ation: Endocrine metoprolol succinate ER 25 mg tablet,exte nded release 24 hr 12-28 00:00: 00 04-29 23:59 :00 No [id number] 1 tablet BEDTIME 1 tablet BEDTIME (route: oral) Med Classific ation: Cardiovas cular Therapy Agents omega-3 300 mg-dha 120 mg-epa 180 mg-fish oil 1,000 mg capsule 12-28 00:00: 00 04-29 23:59 :00 No [id number] 1 capsule DAILY 1 capsule DAILY (route: oral) Med Classific ation: Cardiovas cular Therapy Agents sitagliptin 50 mg tablet 12-28 00:00: 00 04-29 23:59 :00 No [id number] 1 tablet DAILY 1 tablet DAILY (route: oral) Med Classific ation: Endocrine tamsulosin 0.4 mg capsule 7-20 00:00: 00 04-29 23:59 :00 No [id number] 1 capsule DAILY 1 capsule DAILY (route: oral) Med Classific ation: Genitouri nary Therapy oxygen gas for inhalation 9-15 00:00: 00 04-29 23:59 :00 No [id number] 2 Liter INTERMITTE NT 2 Liter INTERMITTE NT (route: inhalation ) Med Classific ation: Medical Supplies and Durable Medical Equipment (DME) Admelog SoloStar U-100 Insulin lispro 100 unit/mL subcutaneou s pen 2024-06 00:00: 00 Yes [id number] Per instruc tions 4 TIMES DAILY Per instructio ns 4 TIMES DAILY (route: subcutaneo us) Med Classific ation: Endocrine ascorbic acid (vitamin C) 500 mg tablet 2024-06 00:00: 00 Yes [id number] 1 tablet BEDTIME 1 tablet BEDTIME (route: oral) Med Classific ation: Electroly te Balance-N utritiona l Products atorvastati n 80 mg tablet 2024-06 00:00: 00 Yes [id number] 1 tablet BEDTIME 1 tablet BEDTIME (route: oral) Med Classific ation: Cardiovas cular Therapy Agents diltiazem CD 180 mg capsule,ext ended release 24 hr 2024-06 00:00: 00 Yes [id number] 1 capsule DAILY 1 capsule DAILY (route: oral) Med Classific ation: Cardiovas cular Therapy Agents Eliquis 5 mg tablet 2024-06 00:00: 00 Yes [id number] 1 tablet 2 TIMES DAILY 1 tablet 2 TIMES DAILY (route: oral) Med Classific ation: Hematolog ical Agents ferrous sulfate 325 mg (65 mg iron) tablet 2024-06 00:00: 00 Yes [id number] 1 tablet DAILY 1 tablet DAILY (route: oral) Med Classific ation: Electroly te Balance-N utritiona l Products Fish Oil 1,000 mg (120 mg-180 mg) capsule 2024-06 00:00: 00 Yes [id number] 1 capsule DAILY 1 capsule DAILY (route: oral) Med Classific ation: Cardiovas cular Therapy Agents furosemide 40 mg tablet 2024-06 00:00: 00 Yes [id number] 1 tablet 2 TIMES DAILY 1 tablet 2 TIMES DAILY (route: oral) Med Classific ation: Cardiovas cular Therapy Agents insulin glargine (U-100) 100 unit/mL (3 mL) subcutaneou s pen 2024-06 00:00: 00 Yes [id number] 10 unit 2 TIMES DAILY 10 unit 2 TIMES DAILY (route: subcutaneo us) Med Classific ation: Endocrine levothyroxi ne 125 mcg tablet 2024-06 00:00: 00 Yes [id number] 1 tablet DAILY 1 tablet DAILY (route: oral) Med Classific ation: Endocrine metformin ER 1,000 mg 24 hr tablet,exte nded release (gastric reten.) 2024-06 00:00: 00 Yes [id number] 1 tablet 2 TIMES DAILY 1 tablet 2 TIMES DAILY (route: oral) Med Classific ation: Endocrine metoprolol succinate ER 50 mg tablet,exte nded release 24 hr 2024-06 00:00: 00 Yes [id number] 1 tablet BEDTIME 1 tablet BEDTIME (route: oral) Med Classific ation: Cardiovas cular Therapy Agents sitagliptin 50 mg tablet 2024-06 00:00: 00 Yes [id number] 1 tablet DAILY 1 tablet DAILY (route: oral) Med Classific ation: Endocrine Vitamin D3 50 mcg (2,000 unit) capsule 2024-06 00:00: 00 Yes [id number] 1 capsule BEDTIME 1 capsule BEDTIME (route: oral) Med Classific ation: Electroly te Balance-N utritiona l Products dapaglifloz in propanediol 5 mg tablet 2024-06 00:00: 00 Yes [id number] 1 tablet DAILY 1 tablet DAILY (route: oral) Med Classific ation: Endocrine Move Free [facility] 750 mg-100 mg-1.65 mg-108 mg tablet 2024-06 00:00: 00 Yes [id number] 1 tablet DAILY 1 tablet DAILY (route: oral) Med Classific ation: Alternati ve Therapy tamsulosin 0.4 mg capsule 2024-06 00:00: 00 Yes [id number] 1 capsule BEDTIME 1 capsule BEDTIME (route: oral) Med Classific ation: Genitouri nary Therapy Vital Signs Vital Name Observation Time Observation Value Commen ts Temperature 2025-05-29 12:38:00.000 97.7 [degF] Temperature 2025-05-25 12:37:00.000 97 [degF] Temperature 2025-05-25 11:00:00.000 96.9 [degF] Temperature 2025-05-22 11:28:00.000 97 [degF] Temperature 2025-05-21 11:40:00.000 96.6 [degF] Temperature 2025-05-19 09:33:00.000 97.1 [degF] Temperature 2025-05-15 11:31:00.000 97.8 [degF] BMI (%) 2025-05-15 11:31:00.000 20 kg/m2 Height 2025-05-15 11:31:00.000 70 [in_us] Pulse 2025-05-29 12:38:00.000 62 /min Pulse 2025-05-25 12:37:00.000 60 /min Pulse 2025-05-25 11:00:00.000 72 /min Pulse 2025-05-22 11:28:00.000 78 /min Pulse 2025-05-21 11:40:00.000 72 /min Pulse 2025-05-19 09:33:00.000 98 /min Pulse 2025-05-15 11:31:00.000 65 /min O2 Saturation (%) 2025-05-29 12:38:00.000 95 % O2 Saturation (%) 2025-05-25 12:37:00.000 99 % O2 Saturation (%) 2025-05-22 11:28:00.000 96 % O2 Saturation (%) 2025-05-21 11:41:00.000 100 % O2 Saturation (%) 2025-05-19 09:33:00.000 100 % O2 Saturation (%) 2025-05-15 11:31:00.000 92 % Respirations 2025-05-29 12:38:00.000 18 /min Respirations 2025-05-25 12:37:00.000 18 /min Respirations 2025-05-25 11:00:00.000 18 /min Respirations 2025-05-22 11:28:00.000 17 /min Respirations 2025-05-21 11:40:00.000 18 /min Respirations 2025-05-19 09:33:00.000 18 /min Respirations 2025-05-15 11:31:00.000 20 /min Weight (lbs) 2025-05-25 12:37:00.000 143 [lb_av] Weight (lbs) 2025-05-22 11:40:00.000 145 [lb_av] Weight (lbs) 2025-05-19 09:33:00.000 142 [lb_av] Weight (lbs) 2025-05-15 11:31:00.000 145.2 [lb_av] Systolic Blood Pressure 2025-05-29 12:38:00.000 112 mm [Hg] Systolic Blood Pressure 2025-05-25 23:00:00.000 112 mm [Hg] Systolic Blood Pressure 2025-05-25 12:37:00.000 112 mm [Hg] Systolic Blood Pressure 2025-05-22 11:28:00.000 110 mm [Hg] Systolic Blood Pressure 2025-05-21 11:40:00.000 114 mm [Hg] Systolic Blood Pressure 2025-05-19 09:33:00.000 102 mm [Hg] Systolic Blood Pressure 2025-05-15 11:31:00.000 110 mm [Hg] Diastolic Blood Pressure 2025-05-29 12:38:00.000 68 mm [Hg] Diastolic Blood Pressure 2025-05-25 23:00:00.000 62 mm [Hg] Diastolic Blood Pressure 2025-05-25 12:37:00.000 61 mm [Hg] Diastolic Blood Pressure 2025-05-22 11:28:00.000 62 mm [Hg] Diastolic Blood Pressure 2025-05-21 11:40:00.000 60 mm [Hg] Diastolic Blood Pressure 2025-05-19 09:33:00.000 64 mm [Hg] Diastolic Blood Pressure 2025-05-15 11:31:00.000 62 mm [Hg] Plan of Treatment Planned Activity Planned Date Details Comments Future Scheduled Test SKILLED NU RSE TO EVALUATE PATIENT, IDENTIFY PRIMARY AND CO-MORBID CONDITIONS CODED PER CODING GUIDELINES, AND DEVELOP PATIENT SPECIFIC PLAN OF CARE THAT INCLUDES PATIENT GOAL FOR HOME HEALTH. PLAN OF CARE TO INCLUDE 3 PRN VISIT(S) FOR OASIS DATA COLLECTION/COMPREHENSIVE ASSESSMENT AT TIMEPOINTS PER FEDERAL REGULATIONS. THIS INCLUDES VISITS FOR AVINASH, RECERT, SCIC, AND/OR DC. [code = SKILLED NURSE TO EVALUATE PATIENT, IDENTIFY PRIMARY AND CO-MORBID CONDITIONS CODED PER CODING GUIDELINES, AND DEVELOP PATIENT SPECIFIC PLAN OF CARE THAT INCLUDES PATIENT GOAL FOR HOME HEALTH. PLAN OF CARE TO INCLUDE 3 PRN VISIT(S) FOR OASIS DATA COLLECTION/COMPREHENSIVE ASSESSMENT AT TIMEPOINTS PER FEDERAL REGULATIONS. THIS INCLUDES VISITS FOR AVINASH, RECERT, SCIC, AND/OR DC.] Future Scheduled Test SKILLED NU RSE TO ASSESS ANXIETY AND PROVIDE ASSISTANCE TO PATIENT FOR UNDERSTANDING AND MANAGEMENT OF FEELINGS. [code = SKILLED NURSE TO ASSESS ANXIETY AND PROVIDE ASSISTANCE TO PATIENT FOR UNDERSTANDING AND MANAGEMENT OF FEELINGS.] Future Scheduled Test OXYGEN VIA NASAL CANNULA @ 2 LITERS CONTINUOUS. SKILLED NURSE FOR O/A AND SKILLED TEACHING OF SAFE OXYGEN USE IN THE HOME. [code = OXYGEN VIA NASAL CANNULA @ 2 LITERS CONTINUOUS. SKILLED NURSE FOR O/A AND SKILLED TEACHING OF SAFE OXYGEN USE IN THE HOME.] Future Scheduled Test SKILLED NU RSE MAY COLLECT URINE SAMPLE FOR URINE REAGENT STRIP TESTING AND/OR URINALYSIS WITH C S 1-3 PRN IF INDICATED FOR SIGNS AND SYMPTOMS OF UTI. IF REAGENT STRIP TEST IS POSITIVE FOR UTI, SKILLED NURSE TO TAKE URINE SAMPLE TO LAB FOR URINE C S AND REPORT RESULTS TO PHYSICIAN. [code = SKILLED NURSE MAY COLLECT URINE SAMPLE FOR URINE REAGENT STRIP TESTING AND/OR URINALYSIS WITH C S 1-3 PRN IF INDICATED FOR SIGNS AND SYMPTOMS OF UTI. IF REAGENT STRIP TEST IS POSITIVE FOR UTI, SKILLED NURSE TO TAKE URINE SAMPLE TO LAB FOR URINE C S AND REPORT RESULTS TO PHYSICIAN.] Future Scheduled Test SKILLED NU RSE FOR O/A OF RESPIRATORY SYSTEM TO IDENTIFY CHANGES ASSOCIATED WITH EXACERBATION AND TO PROVIDE SKILLED TEACHING ON MANAGEMENT OF NOCTURNAL HYPOXEMIA RESPIRATORY DISEASE PROCESS. [code = SKILLED NURSE FOR O/A OF RESPIRATORY SYSTEM TO IDENTIFY CHANGES ASSOCIATED WITH EXACERBATION AND TO PROVIDE SKILLED TEACHING ON MANAGEMENT OF NOCTURNAL HYPOXEMIA RESPIRATORY DISEASE PROCESS.] Future Scheduled Test SKILLED NU RSE FOR O/A AND SKILLED TEACHING RELATED TO SIGNS AND SYMPTOMS OF INFECTION AND INFECTION CONTROL MEASURES. [code = SKILLED NURSE FOR O/A AND SKILLED TEACHING RELATED TO SIGNS AND SYMPTOMS OF INFECTION AND INFECTION CONTROL MEASURES.] Future Scheduled Test SKILLED NU RSE TO INSTRUCT/REINFORCE MEASURES TO PREVENT BARRIERS TO CARE. [code = SKILLED NURSE TO INSTRUCT/REINFORCE MEASURES TO PREVENT BARRIERS TO CARE.] Future Scheduled Test SKILLED NU RSE FOR O/A OF SELF-CARE DEFICITS AND TO PROVIDE TEACHING RELATED TO SAFE PROVISION OF ADLS. [code = SKILLED NURSE FOR O/A OF SELF-CARE DEFICITS AND TO PROVIDE TEACHING RELATED TO SAFE PROVISION OF ADLS.] Future Scheduled Test SKILLED NU RSE TO [...] Scheduled Test SKILLED NU RSE TO ASSESS HOME SAFETY FOR PATIENT WITH IMPAIRED VISION AND INSTRUCT PATIENT/CAREGIVER ON SAFETY TECHNIQUES FOR ADLS AND IADLS, MEDICATION MANAGEMENT, AND HOME ADAPTATION. [code = SKILLED NURSE TO ASSESS HOME SAFETY FOR PATIENT WITH IMPAIRED VISION AND INSTRUCT PATIENT/CAREGIVER ON SAFETY TECHNIQUES FOR ADLS AND IADLS, MEDICATION MANAGEMENT, AND HOME ADAPTATION.] Future Scheduled Test PHYSICAL T HERAPIST TO EVALUATE PATIENT FOR ENDURANCE, MUSCLE WEAKNESS [code = PHYSICAL THERAPIST TO EVALUATE PATIENT FOR ENDURANCE, MUSCLE WEAKNESS] Future Scheduled Test SKILLED NU RSE TO [...] Test SKILLED NU RSE FOR O/A AND SKILLED TEACHING RELATED TO ALTERED SKIN INTEGRITY ERYTHEMA TO BUTTOCKS [code = SKILLED NURSE FOR O/A AND SKILLED TEACHING RELATED TO ALTERED SKIN INTEGRITY ERYTHEMA TO BUTTOCKS] Future Scheduled Test SKILLED NU RSE FOR O/A, TEACHING AND SELF-MANAGEMENT RELATED TO HEART FAILURE. INSTRUCT PATIENT/CAREGIVER ON SIGNS AND SYMPTOMS OF EXACERBATION TO REPORT AND IMPORTANCE OF OBTAINING AND RECORDING DAILY WEIGHT AND/OR MEASUREMENTS. SN OR TRAINED PATIENT/CAREGIVER TO OBTAIN WEIGHT DAILY AND WEIGHT GAIN OF 2 LBS OVERNIGHT OR 5 LBS IN 1 WEEK TO BE REPORTED TO PHYSICIAN/PROVIDER. IF UNABLE TO WEIGH PATIENT, SN OR TRAINED PATIENT/CAREGIVER TO OBTAIN MEASUREMENT OF L CALF IN CM DAILY AND REPORT AN INCREASE OF 2 CM TO PHYSICIAN/PROVIDER. [code = SKILLED NURSE FOR O/A, TEACHING AND SELF-MANAGEMENT RELATED TO HEART FAILURE. INSTRUCT PATIENT/CAREGIVER ON SIGNS AND SYMPTOMS OF EXACERBATION TO REPORT AND IMPORTANCE OF OBTAINING AND RECORDING DAILY WEIGHT AND/OR MEASUREMENTS. SN OR TRAINED PATIENT/CAREGIVER TO OBTAIN WEIGHT DAILY AND WEIGHT GAIN OF 2 LBS OVERNIGHT OR 5 LBS IN 1 WEEK TO BE REPORTED TO PHYSICIAN/PROVIDER. IF UNABLE TO WEIGH PATIENT, SN OR TRAINED PATIENT/CAREGIVER TO OBTAIN MEASUREMENT OF L CALF IN CM DAILY AND REPORT AN INCREASE OF 2 CM TO PHYSICIAN/PROVIDER.] Future Scheduled Test SKILLED NU RSE FOR [...] SYMPTOMS HYPO/HYPERGLYCEMIA TO REPORT.] Future Scheduled Test SKILLED NU RSE TO INSTRUCT PATIENT/CAREGIVER ON PREVENTION OF SEPSIS, AND SIGNS AND SYMPTOMS OF SEPSIS TO REPORT. [code = SKILLED NURSE TO INSTRUCT PATIENT/CAREGIVER ON PREVENTION OF SEPSIS, AND SIGNS AND SYMPTOMS OF SEPSIS TO REPORT.] Future Scheduled Test PATIENT PRUETT [...] MAINTAIN SITUATIONAL AWARENESS AND WILL NOTIFY CLINICAL TRAILER STEERER AND PHYSICIAN/PROVIDER WITH ANY CHANGE IN CONDITION. [code = SKILLED NURSE TO PERFORM ENVIRONMENTAL SAFETY RISK ASSESSMENT AND FALL RISK ASSESSMENT AND PROVIDE INSTRUCTION TO IMPLEMENT ENVIRONMENTAL SAFETY AND FALL PREVENTION STRATEGIES THROUGHOUT THE CERTIFICATION PERIOD. SKILLED NURSE WILL MAINTAIN SITUATIONAL AWARENESS AND WILL NOTIFY CLINICAL TRAILER STEERER AND PHYSICIAN/PROVIDER WITH ANY CHANGE IN CONDITION.] [...] NOTIFY AGENCY OR PHYSICIAN/PROVIDER OF ANY CONCERNS.] Future Scheduled Test PHYSICAL T HERAPIST TO EVALUATE PATIENT SECONDARY TO FUNCTIONAL DEFICITS/SAFETY CONCERNS. PHYSICAL THERAPY TO ESTABLISH /UPGRADE/DOWNGRADE THERAPEUTIC EXERCISE PROGRAM AND INSTRUCT PATIENT/CAREGIVER ON EXERCISE PRECAUTIONS WITH WRITTEN HOME PROGRAM. MAY INCLUDE PROM, AAROM, AROM, RROM APPROPRIATE TO IMPROVE FUNCTIONAL STRENGTH AND RANGE OF MOTION. PHYSICAL THERAPY TO INSTRUCT PATIENT/CAREGIVER ON SAFE TRANSFER TECHNIQUES USING PROPER BODY MECHANICS AND EQUIPMENT. PHYSICAL THERAPY TO INSTRUCT PATIENT/CAREGIVER ON GAIT TRAINING TECHNIQUES USING APPROPRIATE ASSISTIVE DEVICE, PROPER BODY MECHANICS TO IMPROVE MOBILITY, AND PREVENT INJURY OF PATIENT AND/OR CAREGIVER. PHYSICAL THERAPY TO ASSESS AND RECOMMEND HOME SAFETY ADAPTATIONS AND EDUCATE PATIENT /CAREGIVER ON FALL PREVENTION STRATEGIES. PHYSICAL THERAPY FOR OBSERVATION AND ASSESSMENT OF PAIN, EFFECTIVENESS OF PAIN MANAGEMENT REGIMEN AND SKILLED TEACHING RELATED TO PAIN MANAGEMENT. THERAPIST TO REPORT INCREASED PAIN LEVEL TO PHYSICIAN FOR PROMPT INTERVENTION. PHYSICAL THERAPY TO INSTRUCT PATIENT/CAREGIVER ON BALANCE AND BALANCE STRATEGIES TO IMPROVE SAFE MOBILITY AND REDUCE RISK FOR FALL AND INJURY SUMMARY OF THERAPY EVAL/ASSESSMENT FINDINGS AND REASON(S) SKILLS OF A THERAPIST ARE INDICATED: PHYSICAL THERAPY EVALUATION (05/21/25) PATIENT IS AN 89 YO MALE WITH PHYSICAL THERAPY REFERRAL AFTER HOSPITALIZATION ([facility] 04/30) AND SNF STAY ([facility] 05/03 - 05/14) DUE TO ONSET OF CONFUSION, AT HOSPITAL BLOOD SUGAR = [phone], MD DX: ACUTE METABOLIC ENCEPHALOPATHY DUE TO DIABETES WITH DIABETIC KETOACIDOSIS. PAST MD HX: O2 DEPENDENT, DIABETES MELLITUS, HYPERLIPIDEMIA, HYPOTHYROIDISM, ORTHOSTASIS, ARTHRITIS OF RIGHT KNEE, CALCIFIC TENDINITIS OF LEFT SHOULDER, ATRIAL FLUTTER, ACUTE KIDNEY INJURY, HYPERTENSION, AORTIC STENOSIS, ARTHRITIS OF RIGHT KNEE. PATIENT REPORTS HISTORY OF RIGHT KNEE CORTISONE INJECTIONS BY MD [facility], HAD RECENT INJECTION. UPCOMING MD APPTS: [facility] MD [facility] 05/27, MD [facility] 05/28. FALL HISTORY: FALL PRIOR TO 04/30 HOSPITALIZATION. PATIENT REPORTS HE LOST BALANCE WHILE AMB IN H[place]WAY, INJURED R HIP PLOF: AMB WITH CANE INDOORS AND OUTDOORS, DROVE PATIENT LIVES ON 1ST FLOOR OF SINGLE FAMILY HOME WITH PRISCILLA WHO HAS DEMENTIA, 3 STAIRS AND 1 THRESHOLD STEP TO NEGOTIATE. [employer]IS[employer]LLA HAS [employer] SERVICES THRU [employer]. CLOF: VISIT COMPLETED WITH LAURIE MUNGUIA PRESENT, VISITING FROM [facility]. DME: O2 (2 L CONTINUOUS), FWW, CANE, GLUCOMETER, URINAL, GRAB BARS, HANDHELD SHOWERHEAD, TUB SEAT (NOT BEING USED) SAFETY RECOMMENDATIONS: RECOMMENDED REMOVAL OF CLUTTER WITH LAURIE MUNGUIA STATES IN PROCESS OF COMPLETING. RECOMMENDED HINGED RIGHT KNEE BRACE ACQUISITON WITH PATIENT NOT RECEPTIVE. HANDICAPPED PLACARD ACQUISTION WITH PATIENT AND CG RECEPTIVE AND THIS THERAPIST TO PROVIDE FORM NEXT VISIT. RECOMMEND USAGE OF TUB SEAT WITH PATIENT NOT RECEPTIVE. PATIENT DEMO TRACE BILAT LE EDEMA, EDUC ON EDEMA CONTROL. EDUC PATIENT AND CG ON DAILY BILAT LE SKIN CHECKS. BILAT LE ROM WFL, BILAT LE STRENGTH 4- TO 4/5. TO INCREASE BILAT LE STRENGTH, PATIENT INSTRUCTED IN SEATED BILAT LE THER EXER X 10: ANKLE CIRCLES, PLANTAR/ DORSIFLEXION, HIP FLEXION, KNEE EXTENSION. DISPENSED HEP SHEET. PATIENT INDEP WITH BED MOBILITY. PATIENT COMPLETED SIT -->STAND WITH SUPERVISION AND FWW, VERBAL CUES FOR AD POSITIONING. PATIENT AMB 30' X 2 WITH FWW AND SUPERVISION, VERBAL CUES FOR SAFETY AWARENESS WITH O2 TUBING. PATIENT DEMO BILAT LE STEP LENGTHS WITH ADEQUATE FEET CLEARANCE, 0 LOB. AFTER 30' AMB PATIENT SOB, SPO2 DECREASED TO 90%, WITH EDUC ON PURSED LIPPED BREATHING, BACK TO BASELINE OXYGEN VIA NASAL CANNULA @ 2 LITERS CONTINUOUS. PHYSICAL THERAPIST FOR O/A AND SKILLED TEACHING OF SAFE OXYGEN USE IN THE HOME. [code = PHYSICAL THERAPIST TO EVALUATE PATIENT SECONDARY TO FUNCTIONAL DEFICITS/SAFETY CONCERNS. PHYSICAL THERAPY TO ESTABLISH /UPGRADE/DOWNGRADE THERAPEUTIC EXERCISE PROGRAM AND INSTRUCT PATIENT/CAREGIVER ON EXERCISE PRECAUTIONS WITH WRITTEN HOME PROGRAM. MAY INCLUDE PROM, AAROM, AROM, RROM APPROPRIATE TO IMPROVE FUNCTIONAL STRENGTH AND RANGE OF MOTION. PHYSICAL THERAPY TO INSTRUCT PATIENT/CAREGIVER ON SAFE TRANSFER TECHNIQUES USING PROPER BODY MECHANICS AND EQUIPMENT. PHYSICAL THERAPY TO INSTRUCT PATIENT/CAREGIVER ON GAIT TRAINING TECHNIQUES USING APPROPRIATE ASSISTIVE DEVICE, PROPER BODY MECHANICS TO IMPROVE MOBILITY, AND PREVENT INJURY OF PATIENT AND/OR CAREGIVER. PHYSICAL THERAPY TO ASSESS AND RECOMMEND HOME SAFETY ADAPTATIONS AND EDUCATE PATIENT /CAREGIVER ON FALL PREVENTION STRATEGIES. PHYSICAL THERAPY FOR OBSERVATION AND ASSESSMENT OF PAIN, EFFECTIVENESS OF PAIN MANAGEMENT REGIMEN AND SKILLED TEACHING RELATED TO PAIN MANAGEMENT. THERAPIST TO REPORT INCREASED PAIN LEVEL TO PHYSICIAN FOR PROMPT INTERVENTION. PHYSICAL THERAPY TO INSTRUCT PATIENT/CAREGIVER ON BALANCE AND BALANCE STRATEGIES TO IMPROVE SAFE MOBILITY AND REDUCE RISK FOR FALL AND INJURY SUMMARY OF THERAPY EVAL/ASSESSMENT FINDINGS AND REASON(S) SKILLS OF A THERAPIST ARE INDICATED: PHYSICAL THERAPY EVALUATION (05/21/25) PATIENT IS AN 89 YO MALE WITH PHYSICAL THERAPY REFERRAL AFTER HOSPITALIZATION ([facility] 04/30) AND SNF STAY ([facility] 05/03 - 05/14) DUE TO ONSET OF CONFUSION, AT HOSPITAL BLOOD SUGAR = 800, MD DX: ACUTE METABOLIC ENCEPHALOPATHY DUE TO DIABETES WITH DIABETIC KETOACIDOSIS. PAST MD HX: O2 DEPENDENT, DIABETES MELLITUS, HYPERLIPIDEMIA, HYPOTHYROIDISM, ORTHOSTASIS, ARTHRITIS OF RIGHT KNEE, CALCIFIC TENDINITIS OF LEFT SHOULDER, ATRIAL FLUTTER, ACUTE KIDNEY INJURY, HYPERTENSION, AORTIC STENOSIS, ARTHRITIS OF RIGHT KNEE. PATIENT REPORTS HISTORY OF RIGHT KNEE CORTISONE INJECTIONS BY MD HART OF [facility], HAD RECENT INJECTION. UPCOMING MD APPTS: PR MD BAKER 05/27, MD WYNNE 05/28. FALL HISTORY: FALL PRIOR TO 04/30 HOSPITALIZATION. PATIENT REPORTS HE LOST BALANCE WHILE AMB IN HALLWAY, INJURED R HIP PLOF: AMB WITH CANE INDOORS AND OUTDOORS, DROVE PATIENT LIVES ON 1ST FLOOR OF SINGLE FAMILY HOME WITH PRISCILLA WHO HAS DEMENTIA, 3 STAIRS AND 1 THRESHOLD STEP TO NEGOTIATE. PRISCILLA HAS [employer] THRU [employer]. CLOF: VISIT COMPLETED WITH SON NILDA PRESENT, VISITING FROM [place]. DME: O2 (2 L CONTINUOUS), FWW, CANE, GLUCOMETER, URINAL, GRAB BARS, HANDHELD SHOWERHEAD, TUB SEAT (NOT BEING USED) SAFETY RECOMMENDATIONS: RECOMMENDED REMOVAL OF CLUTTER WITH SON NILDA STATES IN PROCESS OF COMPLETING. RECOMMENDED HINGED RIGHT KNEE BRACE ACQUISITON WITH PATIENT NOT RECEPTIVE. HANDICAPPED PLACARD ACQUISTION WITH PATIENT AND CG RECEPTIVE AND THIS THERAPIST TO PROVIDE FORM NEXT VISIT. RECOMMEND USAGE OF TUB SEAT WITH PATIENT NOT RECEPTIVE. PATIENT DEMO TRACE BILAT LE EDEMA, EDUC ON EDEMA CONTROL. EDUC PATIENT AND CG ON DAILY BILAT LE SKIN CHECKS. BILAT LE ROM WFL, BILAT LE STRENGTH 4- TO 4/5. TO INCREASE BILAT LE STRENGTH, PATIENT INSTRUCTED IN SEATED BILAT LE THER EXER X 10: ANKLE CIRCLES, PLANTAR/ DORSIFLEXION, HIP FLEXION, KNEE EXTENSION. DISPENSED HEP SHEET. PATIENT INDEP WITH BED MOBILITY. PATIENT COMPLETED SIT -->STAND WITH SUPERVISION AND FWW, VERBAL CUES FOR AD POSITIONING. PATIENT AMB 30' X 2 WITH FWW AND SUPERVISION, VERBAL CUES FOR SAFETY AWARENESS WITH O2 TUBING. PATIENT DEMO BILAT LE STEP LENGTHS WITH ADEQUATE FEET CLEARANCE, 0 LOB. AFTER 30' AMB PATIENT SOB, SPO2 DECREASED TO 90%, WITH EDUC ON PURSED LIPPED BREATHING, BACK TO BASELINE OXYGEN VIA NASAL CANNULA @ 2 LITERS CONTINUOUS. PHYSICAL THERAPIST FOR O/A AND SKILLED TEACHING OF SAFE OXYGEN USE IN THE HOME.] Goal Patient Goal - TO GET STRONG ER Goal Provider Goal - A PLAN OF CARE WILL BE ESTABLISHED THAT MEETS PATIENT'S GROUP HOME NEEDS AND INCLUDES PATIENT GOAL FOR HOME HEALTH. Goal Provider Goal - SYMPTOMS OF ANXIETY ARE IDENTIFIED AND INTERVENTIONS INITIATED TO ENABLE PATIENT TO UNDERSTAND AND MANAGE FEELINGS THROUGHOUT EPISODE. Goal Provider Goal - PATIENT/CAREGIVER WILL VERBALIZE/DEMONSTRATE UNDERSTANDING OF SAFE OXYGEN USE IN THE HOME THROUGHOUT THE EPISODE. Goal Provider Goal - URINE SPECIMEN WILL BE OBTAINED PRN FOR SIGNS AND SYMPTOMS OF UTI AND RESULTS WILL BE REPORTED TO PHYSICIAN THROUGHOUT THE CERTIFICATION PERIOD. Goal Provider Goal - PATIENT/CAREGIVER WILL VERBALIZE/DEMONSTRATE MANAGEMENT OF NOCTURNAL HYPOXEMIA RESPIRATORY DISEASE PROCESS. CHANGES IN RESPIRATORY STATUS WILL BE IDENTIFIED AND REPORTED TO PHYSICIAN FOR PROMPT INTERVENTION THROUGHOUT THE CERTIFICATION PERIOD. Goal Provider Goal - PATIENT/CAREGIVER WILL VERBALIZE/DEMONSTRATE UNDERSTANDING OF S/S OF INFECTION AND INFECTION CONTROL MEASURES. SIGNS AND SYMPTOMS OF INFECTION WILL BE IDENTIFIED AND PHYSICIAN NOTIFIED FOR PROMPT INTERVENTION THROUGHOUT THE CERTIFICATION PERIOD. Goal Provider Goal - PATIENT / CAREGIVER WILL VERBALIZE UNDERSTANDING OF BARRIERS PREVENTING PROPER CARE AND DEMONSTRATE MEASURES TO ELIMINATE THOSE BARRIERS DURING THIS EPISODE. Goal Provider Goal - PATIENT/CAREGIVER WILL VERBALIZE/DEMONSTRATE UNDERSTANDING OF SAFE PROVISION OF ADLS BY THE END OF THE CERTIFICATION PERIOD. Goal Provider Goal - BLOOD SUGAR READING WILL BE OBTAINED ORDERED THROUGHOUT CERTIFICATION PERIOD. Goal Provider Goal - PATIENT/CAREGIVER WILL VERBALIZE SIGNS AND SYMPTOMS OF EXACERBATION OF ENDOCRINE DIAGNOSIS TO REPORT TO NURSE/PHYSICIAN THROUGHOUT THE CERTIFICATION PERIOD. Goal Provider Goal - PATIENT/CAREGIVER WILL BE ABLE TO APPLY PRINCIPLES OF ENVIRONMENTAL MODIFICATION TO MAINTAIN THE LEVEL OF SAFETY FOR THE LOW VISION PATIENT WITHIN THE HOME SETTING AND PREVENT FALL/INJURY THIS EPISODE Goal Provider Goal - A PHYSICAL THERAPY EVALUATION TO BE COMPLETED WITH RECOMMENDATIONS AND/OR WRITTEN PLAN OF TREATMENT ESTABLISHED FOR PHYSICIAN S SIGNATURE. Goal Provider Goal - PATIENT/CAREGIVER WILL VERBALIZE UNDERSTANDING OF SIGNS AND SYMPTOMS, COMPLICATIONS, AND MANAGEMENT OF ATRIAL FIBRILLATION THROUGHOUT THE CERTIFICATION PERIOD. Goal Provider Goal - PATIENT/CAREGIVER WILL VERBALIZE SIGNS AND SYMPTOMS OF HYPERTENSION AND WILL BE ABLE TO DEMONSTRATE ABILITY TO MANAGE EXACERBATION BY END OF THE EPISODE. Goal Provider Goal - PATIENT/CAREGIVER WILL VERBALIZE/DEMONSTRATE UNDERSTANDING OF TEACHING RELATED TO ALTERED SKIN INTEGRITY ERYTHEMA TO BUTTOCKS BY END OF CERTIFICATION PERIOD. Goal Provider Goal - PATIENT/CAREGIVER WILL VERBALIZE/DEMONSTRATE KNOWLEDGE AND MANAGEMENT OF HEART FAILURE DISEASE PROCESS BY END OF EPISODE. Goal Provider Goal - PATIENT/CAREGIVER WILL VERBALIZE/DEMONSTRATE KNOWLEDGE OF DIABETIC MANAGEMENT. CHANGES IN DIABETIC STATUS WILL BE IDENTIFIED AND REPORTED TO PHYSICIAN FOR PROMPT INTERVENTION THROUGHOUT THE CERTIFICATION PERIOD. Goal Provider Goal - PATIENT WILL BE FREE FROM INFECTION AND PATIENT/CAREGIVER WILL VERBALIZE UNDERSTANDING OF SIGNS AND SYMPTOMS AND METHODS TO PREVENT SEPSIS BY END OF THE EPISODE. Goal Provider Goal - PATIENT WILL HAVE [...] BY THE END OF THE CERTIFICATION PERIOD. Goal Provider Goal - PHYSICAL THERAPY EVALUATION TO BE COMPLETED WITH RECOMMENDATIONS AND/OR WRITTEN TREATMENT PLAN OF CARE ESTABLISHED FOR THE PHYSICIAN S SIGNATURE PATIENT/CAREGIVER WILL PERFORM THERAPEUTIC EXERCISE/S AND DEMONSTRATE PARTICIPATION IN A HOME PROGRAM. PATIENT/CAREGIVER WILL DEMONSTRATE SAFE TRANSFERS USING APPROPRIATE ASSISTIVE DEVICE, BODY MECHANICS AND EQUIPMENT. PATIENT/CAREGIVER WILL DEMONSTRATE IMPROVED GAIT TECHNIQUES TO MINIMIZE RISK OF INJURY. PATIENT/CAREGIVER WILL DEMONSTRATE/VERBALIZE UNDERSTANDING OF RECOMMENDATIONS TO INCREASE SAFETY IN THE HOME AND FALL PREVENTION. INCREASED PAIN OR INEFFECTIVE PAIN CONTROL MEASURES WILL BE IDENTIFIED AND PROMPTLY REPORTED TO THE PHYSICIAN. PATIENT/CAREGIVER WILL DEMONSTRATE EFFECTIVE PAIN MANAGEMENT. PATIENT/CAREGIVER WILL DEMONSTRATE IMPROVED BALANCE AND REDUCE THE RISK OF FALLS AND INJURY. PATIENT/CAREGIVER WILL VERBALIZE/DEMONSTRATE UNDERSTANDING OF SAFE OXYGEN USE IN THE HOME THROUGHOUT THE EPISODE. Encounters Start Date/Time End Date/Time Encounter Type Admission Type Attending Clinicians Care Facility Care Department Encounter ID Discharge Date Discharge Status Discharge Condition Discharge Reason Percent Goals Met 2025-05-15 00:00:00 2025-07-13 00:00:00 Outpatient GARCÍA STARKS [facility] [id number]
== END 2025-06-10 11:15 | disposition skilled nursing facility (03) | DRG 690 ==
LOC: HO.ED 06-06 01:06 → HO.EDOVER 06-06 06:25 → HO.IMC 06-06 19:55
PROVIDERS: Family Medicine; Hospitalist; Physician Assistant; Physician Assistant Medical; Admitting Provider Internal Medicine; Emergency Provider Emergency Medicine; PCP Internal Medicine; Visit Provider Student in an Organized Health Care Education/Training Program
DX: N39.0 Urinary tract infection, site not specified (principal); E87.21 Acute metabolic acidosis; I48.92 Unspecified atrial flutter; I13.0 Hypertensive heart and chronic kidney disease with heart failure and stage 1 through stage 4 chronic kidney disease, or unspecified chronic kidney disease; I50.32 Chronic diastolic (congestive) heart failure; L89.322 Pressure ulcer of left buttock, stage 2; L89.312 Pressure ulcer of right buttock, stage 2; E86.0 Dehydration; N18.9 Chronic kidney disease, unspecified; N18.30 Chronic kidney disease, stage 3 unspecified; E03.9 Hypothyroidism, unspecified; E11.22 Type 2 diabetes mellitus with diabetic chronic kidney disease; R35.81 Nocturnal polyuria; B95.2 Enterococcus as the cause of diseases classified elsewhere; Z20.822 Contact with and (suspected) exposure to COVID-19; Z95.2 Presence of prosthetic heart valve; Z79.4 Long term (current) use of insulin; Z79.01 Long term (current) use of anticoagulants; Z79.84 Long term (current) use of oral hypoglycemic drugs; Z79.890 Hormone replacement therapy; Z79.899 Other long term (current) drug therapy
CPT/HCPCS: 36415; 36600; 71045; 80048; 80053; 80076; 81001; 82803; 82947; 83605; 83735; 83880; 84484; 85025; 85027; 87040; 87086; 87088; 87186; 87637; 93005; 94640; 97110; 97162; 97166; 97530; 99285; J0616; J0696; J1938; J1956; J3475; J7120

== ENCOUNTER → 2025-06-05 10:32 | Outpatient (BNV) | payer MEDICARE, SELFPAY ==
[2024-12-23 15:15] VITALS: BP 122/60; BP 134/60; BMI 24.7
== END ==
PROVIDERS: Emergency Provider Emergency Medicine; PCP Internal Medicine; Visit Provider Internal Medicine Cardiovascular Disease
DX: I48.92 Unspecified atrial flutter (principal); I44.4 Left anterior fascicular block
CPT/HCPCS: 93010

== ENCOUNTER → 2025-06-06 00:58 | Outpatient (BNV) | payer MEDICARE, SELFPAY ==
[2024-12-23 15:15] VITALS: BP 122/60; BP 134/60; BMI 24.7
== END ==
PROVIDERS: Admitting Provider Internal Medicine; Emergency Provider Emergency Medicine; PCP Internal Medicine; Visit Provider Internal Medicine Cardiovascular Disease
DX: I48.92 Unspecified atrial flutter (principal); I44.4 Left anterior fascicular block
CPT/HCPCS: 93010

== ENCOUNTER 2025-06-06 06:14 | Outpatient (BNV) | payer MEDICARE, SELFPAY ==
[2024-12-23 15:15] VITALS: BP 122/60; BP 134/60; BMI 24.7
== END 2025-06-10 01:24 ==
PROVIDERS: Admitting Provider Internal Medicine; Emergency Provider Emergency Medicine; PCP Internal Medicine; Visit Provider Radiology Diagnostic Radiology
DX: R06.2 Wheezing (principal)
CPT/HCPCS: 71045

== ENCOUNTER 2025-06-06 06:14 | Outpatient (BNV) | payer MEDICARE, SELFPAY ==
[2024-12-23 15:15] VITALS: BP 122/60; BP 134/60; BMI 24.7
== END 2025-06-10 00:20 ==
PROVIDERS: Admitting Provider Internal Medicine; Emergency Provider Emergency Medicine; PCP Internal Medicine; Visit Provider Internal Medicine
DX: I48.92 Unspecified atrial flutter (principal); I44.4 Left anterior fascicular block
CPT/HCPCS: 93010

== ENCOUNTER → 2025-06-06 06:14 | Outpatient (BNV) | payer MEDICARE, SELFPAY ==
[2024-12-23 15:15] VITALS: BP 122/60; BP 134/60; BMI 24.7
== END ==
PROVIDERS: Admitting Provider Internal Medicine; Emergency Provider Emergency Medicine; PCP Internal Medicine; Visit Provider Physician Assistant Medical
DX: N39.0 Urinary tract infection, site not specified (principal)
CPT/HCPCS: 99223; 99233